=== PATIENT | male | born 1965 | race Caucasian/White ===

== ENCOUNTER 2022-12-22 09:47 | Emergency (ER) | payer BC, SELFPAY ==
[2022-12-22 10:02] VITALS: BP 165/87; PULSE 77; RESP 14; TEMP 36.6; O2SAT 97; BMI 33.0
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
--- NOTE | 2022-12-22 10:50 | XR_ITS ---
[address] [address] Patient Name: ALEN CALDERON MRN: [id number] date: 1965 Sex: M Assigned Patient Location: ER Current Patient Location: Accession/Order Number: [id number] Exam Date: 12/22/2022 11:10 Report Date: 12/22/2022 11:43 At the request of: DANN NASH Procedure: XR knee RT 4V EXAM: XR knee RT 4V HISTORY: pain COMPARISON: MRI dated 05-03-2021 FINDINGS: 4 radiographs of the right knee were obtained. 4 mm ossific fragment projects over the tibial spine. No dislocation. Mild tricompartmental degenerative changes to the right knee. Knee joint effusion. IMPRESSION: Ossific fragment measuring 4 mm projects over the tibial spine. This is favored to be degenerative, but could represent a small fracture fragment. Knee joint effusion. No dislocation. Mild tricompartmental degenerative changes to the right knee. Electronically authenticated by: MERRICK REARDON Date: 12/22/2022 11:43
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
== END 2022-12-22 13:43 | disposition home or self-care (01) ==
PROVIDERS: Emergency Provider Emergency Medicine; PCP Internal Medicine
DX: S83.91XA Sprain of unspecified site of right knee, initial encounter (principal); Z79.899 Other long term (current) drug therapy; W22.8XXA Striking against or struck by other objects, initial encounter; Z87.891 Personal history of nicotine dependence
CPT/HCPCS: 73564; 73700; 99284

== ENCOUNTER 2023-04-09 15:15 | Outpatient (OUT) | payer BC, SELFPAY ==
[2023-04-09 15:42] LABS: Basophils Absolute Auto 0.1 10^3/uL (0.0-0.1); Basophils Percent Auto 0.9 % (0.2-2.0); Eosinophils Absolute Auto 0.3 10^3/uL (0.0-0.7); Eosinophils Percent Auto 3.2 % (0.9-7.0); Hemoglobin 14.4 g/dL (14.0-18.0); Immature Granulocytes Abs Auto 0.03 10^3/uL (0.00-0.03); Immature Granulocytes Pct Auto 0.3 % (0.0-0.5); Lymphocytes Absolute Auto 2.4 10^3/uL (1.2-3.8); Lymphocytes Percent Auto 27.1 % (20.5-60.0); Mean Corpuscular HGB Conc 35.1 g/dL (29.9-35.2); Mean Corpuscular Hemoglobin 33.9 pg (25.9-34.0); Mean Corpuscular Volume 96.5 fL (80.0-94.0); Mean Platelet Volume 9.9 fL (9.5-13.5); Monocytes Absolute Auto 0.8 10^3/uL (0.3-0.8); Monocytes Percent Auto 9.5 % (1.7-12.0); Neutrophils Absolute Auto 5.2 10^3/uL (1.4-6.5); Platelet Count 223 10^3/uL (150-450); Red Blood Count 4.25 10^6/uL (4.70-6.10); Red Cell Distribution Width 11.9 % (11.0-15.0); White Blood Count 8.8 10^3/uL (4.0-11.0)
[2023-04-09 16:25] LABS: Alanine Aminotransferase 35 U/L (16-63); Albumin Level 4.1 g/dL (3.4-5.0); Alkaline Phosphatase 69 U/L (46-116); Anion Gap 11.8; Aspartate Amino Transferase 26 U/L (15-37); BUN Creatinine Ratio 19.4; Bilirubin Total 1.1 mg/dL (0.2-1.0); Calcium 9.3 mg/dL (8.5-10.1); Carbon Dioxide 28.1 mmol/L (21.0-32.0); Chloride 99 mmol/L (98-107); Estimated GFR (African America >60 (>=60); Estimated GFR (Non-African Ame >60 (>=60); Glucose 117 mg/dL (74-106); Potassium 3.9 mmol/L (3.5-5.1); Sodium 135 mmol/L (136-145); Total Protein 8.1 g/dL (6.4-8.2)
== END 2023-04-09 15:16 | disposition home or self-care (01) ==
PROVIDERS: PCP Internal Medicine; Visit Provider Nurse Practitioner
DX: I20.0 Unstable angina (principal)
CPT/HCPCS: 36415; 80053; 85025

== ENCOUNTER 2023-05-12 08:14 | Outpatient (OUT) | payer BC, SELFPAY ==
--- NOTE | 2023-05-12 08:28 | XR_ITS ---
[address] [address] Patient Name: ALEN CALDERON MRN: [id number] date: 1965 Sex: M Assigned Patient Location: LAB Current Patient Location: LAB Accession/Order Number: [id number] Exam Date: 05/12/2023 08:50 Report Date: 05/12/2023 09:17 At the request of: ADOLFO CANTU Procedure: XR chest 2V XR chest 2V COMPARISON: None. CLINICAL HISTORY: [facility] Z79.899 TECHNIQUE: 2 views FINDINGS: There is a normal cardiac and mediastinal contour. The pulmonary vascular pattern is normal. The lungs are clear and the pleural margins are sharp. There are no significant skeletal abnormalities. XR/XR chest 2V IMPRESSION: NO ACUTE RADIOGRAPHIC FINDINGS. Electronically authenticated by: FELIX BUSTAMANTE Date: 05/12/2023 09:17
== END 2023-05-12 08:15 | disposition home or self-care (01) ==
PROVIDERS: PCP Internal Medicine; Visit Provider Nurse Practitioner
DX: Z79.899 Other long term (current) drug therapy (principal)
CPT/HCPCS: 71046; 80053; 83735; 84443

== ENCOUNTER 2023-05-12 08:25 | Outpatient (OUT) | payer BC, SELFPAY ==
[2023-05-12 08:52] LABS: Basophils Absolute Auto 0.1 10^3/uL (0.0-0.1); Basophils Percent Auto 0.8 % (0.2-2.0); Eosinophils Absolute Auto 0.3 10^3/uL (0.0-0.7); Eosinophils Percent Auto 5.3 % (0.9-7.0); Hematocrit 40.9 % (42.0-54.0); Hemoglobin 14.5 g/dL (14.0-18.0); Immature Granulocytes Abs Auto 0.03 10^3/uL (0.00-0.03); Immature Granulocytes Pct Auto 0.5 % (0.0-0.5); Lymphocytes Absolute Auto 1.8 10^3/uL (1.2-3.8); Lymphocytes Percent Auto 29.5 % (20.5-60.0); Mean Corpuscular HGB Conc 35.5 g/dL (29.9-35.2); Mean Corpuscular Hemoglobin 33.5 pg (25.9-34.0); Mean Corpuscular Volume 94.5 fL (80.0-94.0); Mean Platelet Volume 9.7 fL (9.5-13.5); Monocytes Absolute Auto 0.6 10^3/uL (0.3-0.8); Monocytes Percent Auto 9.6 % (1.7-12.0); Neutrophils Absolute Auto 3.3 10^3/uL (1.4-6.5); Neutrophils Percent Auto 54.3 % (43.0-75.0); Platelet Count 221 10^3/uL (150-450); Red Blood Count 4.33 10^6/uL (4.70-6.10); Red Cell Distribution Width 11.3 % (11.0-15.0); White Blood Count 6.1 10^3/uL (4.0-11.0)
[2023-05-12 09:35] LABS: Alanine Aminotransferase 36 U/L (16-63); Albumin Globulin Ratio 0.9; Albumin Level 3.8 g/dL (3.4-5.0); Alkaline Phosphatase 68 U/L (46-116); Anion Gap 11.7; Aspartate Amino Transferase 26 U/L (15-37); BUN Creatinine Ratio 16.3; Bilirubin Total 0.5 mg/dL (0.2-1.0); Calcium 8.9 mg/dL (8.5-10.1); Carbon Dioxide 28.9 mmol/L (21.0-32.0); Chloride 101 mmol/L (98-107); Estimated GFR (African America >60 (>=60); Estimated GFR (Non-African Ame >60 (>=60); Glucose 129 mg/dL (74-106); Potassium 4.6 mmol/L (3.5-5.1); Sodium 137 mmol/L (136-145); Thyroid Stimulating Hormone 1.168 uIU/mL (0.358-3.740); Total Protein 7.8 g/dL (6.4-8.2)
== END 2023-05-12 08:26 | disposition home or self-care (01) ==
LOC: LAB 08:26
PROVIDERS: PCP Internal Medicine; Visit Provider Nurse Practitioner
DX: Z79.899 Other long term (current) drug therapy (principal); I10 Essential (primary) hypertension; I48.0 Paroxysmal atrial fibrillation
CPT/HCPCS: 36415; 71046; 80053; 83735; 84443; 85025

== ENCOUNTER 2023-06-10 08:34 | Outpatient (OUT) | payer BC, SELFPAY ==
--- NOTE | 2023-06-09 09:46 | RT_ITS ---
[facility] Test Date: 2023-06-09 Pat Name: AELN CALDERON Department: Room: - Gender: Male Professor Of Practice: Michael Ramirez RRT : 1965 Requested By: [id number] Order Number: [id number] Reading MD: Stuart Fernandez Interpretive Statements Pulmonary function testing was completed according to ATS criteria. Findings were considered accurate and reproducible. No bronchodilator was administered due to normal spirometric values. Due to software limitations, no prior studies (if performed previously) are currently available for comparison. Spirometry: -FEV1/FVC: Normal @ 82% -FEV1: Normal @ 89% -FVC: Low normal @ 82% Lung volumes by plethysmography: -RV: Normal @ 115% -TLC: Normal @ 96% Diffusion capacity: -DLCO: Normal @ 99% when corrected for Hb 14.5g/dL Flow-volume loop: -Trending towards a mild restriction Impressions: -Essentially normal PFT. Clinical correlation required. Electronically Signed On 06-16-2023 13:34:24 EST by Stuart Fernandez
== END 2023-06-10 11:22 | disposition home or self-care (01) ==
LOC: CARD 08:35
PROVIDERS: PCP Internal Medicine; Visit Provider Nurse Practitioner
DX: Z79.899 Other long term (current) drug therapy (principal)
CPT/HCPCS: 94010; 94726; 94729

== ENCOUNTER 2023-07-11 08:29 | Outpatient (OUT) | payer BC, SELFPAY ==
--- OUTSIDE RECORDS SUMMARY | 2023-07-11 08:33 | XMS_ITS | CCD ---
Author Name Unknown Address [address] [place] [address] Organization [facility] Care Team Providers Care Wedding Planner Name Role Phone CALIXTO SEGOVIA Referring Unavailable BALL, CALIXTO Primary Care Unavailable PROMISE, THEO Attending Unavailable PROMISE, THEO Admitting Unavailable BALL, CALIXTO Primary Care Unavailable BALL, CALIXTO Referring Unavailable PROMISE, THEO Attending Unavailable PROMISE, THEO Admitting Unavailable COMBS, DR LEVINE Admitting Unavailable COMBS, DR LEVINE Attending Unavailable COMBS, DR LEVINE Consulting Unavailable BALL, DR DE LUNA Primary Care Unavailable BALL, DR DE LUNA Admitting Unavailable BALL, DR DE LUNA Attending Unavailable BALL, DR DE LUNA Primary Care Unavailable BALL, DR DE LUNA Primary Care Unavailable PROMISE, THEO Admitting Unavailable PROMISE, THEO Attending Unavailable PROMISE, THEO Consulting Unavailable BALL, DR DE LUNA Primary Care Unavailable PROMISE, THEO Admitting Unavailable PROMISE, THEO Attending Unavailable PROMISE, THEO Consulting Unavailable JO ANNSTELLA JORGE Admitting Unavailable BALL, DR DE LUNA Primary Care Unavailable STELLA ATWOOD Attending Unavailable STELLA ATWOOD Consulting Unavailable SANDIE, CALIXTO Primary Care Physician Erwin COMBS Attending Unavailable Erwin COMBS Attending Unavailable TRACYVINCENT Whittaker Attending Unavailable JO ANNSTELLA Attending Unavailable ADOLFO CANTU Attending Unavailable APLINGROGERS Attending Unavailable APLINGROGERS Attending Unavailable Allergies Allergy Classification Reported Allergen(s) Allergy Type Date of Onset Reaction(s) Facility (1 source) Acetaminophen / oxyCODONE Drug Allergy 2 [facility] (2 sources) oxyCODONE; Translations: [oxyCODONE] Drug Allergy [facility] (1 source) oxyCODONE; Translations: [oxycodone] Drug Allergy Itching (finding) [facility] (1 source) Acetaminophen / oxyCODONE; Translations: [OXYCODONE-ACETAM INOPHEN] Drug Allergy 2 [facility] Medications Current Medications Medication Drug Class(es) Dates Sig (Normalized) Sig (Original) Amlodipine (1 source) Dihydropyridine Calcium Channel Tanner Start: 04-28-2019 amlodipine Oral, Daily, Refills(s) 0 Start Date: 04/28/19 Status: Ordered Eliquis (1 source) Factor Xa Inhibitor Start: 04-28-2019 Eliquis Oral, BID, Refills(s) 0 Start Date: 04/28/19 Status: Ordered carvedilol (1 source) alpha-Adrenergic Tanner, beta-Adrenergic Tanner Start: 04-28-2019 carvedilol Oral, Refills(s) 0 Start Date: 04/28/19 Status: Ordered furosemide 40 mg oral tablet (1 source) Loop Diuretic Start: 08-09-2022 furosemide 40 mg Tab Refills(s) 0 Start Date: 08/09/22 Status: Ordered Losartan (1 source) Angiotensin 2 Receptor Tanner Start: 04-28-2019 losartan Oral, Daily, Refills(s) 0 Start Date: 04/28/19 Status: Ordered omeprazole 20 mg delayed release oral capsule (1 source) Proton Pump Inhibitor Start: 08-09-2022 omeprazole 20 mg Cap-DR Refills(s) 0 Start Date: 08/09/22 Status: Ordered Problems Problem Classification Problem Date Documented Date Episodic/Chronic Cancer of prostate (1 source) Malignant tumor of prostate 01-10-2020 Chronic Cancer of prostate (3 sources) Personal history of malignant neoplasm of prostate; Translations: [History of malignant neoplasm of prostate] Onset: 2 Episodic Cardiac dysrhythmias (11 sources) Paroxysmal atrial fibrillation; Translations: [Unspecified atrial fibrillation] Onset: 2 Chronic Disorders of lipid metabolism (1 source) Hypercholesterolemia 04-28-2019 Chronic Esophageal disorders (1 source) Gastroesophageal reflux disease 04-28-2019 Chronic Essential hypertension (4 sources) Essential (primary) hypertension; Translations: [Hypertensive disorder] Onset: 2 04-28-2019 Chronic Genitourinary symptoms and ill-defined conditions (3 sources) Nocturia; Translations: [Microscopic hematuria] Onset: 2 08-04-2019 Episodic Glaucoma (1 source) Glaucoma 04-28-2019 Chronic Hyperplasia of prostate (6 sources) Benign prostatic hyperplasia with lower urinary tract symptoms; Translations: [Benign prostatic hypertrophy with outflow obstruction] Onset: 2 Chronic Other male genital disorders (2 sources) Male erectile dysfunction, unspecified; Translations: [Erectile dysfunction] Onset: 2 Chronic Other male genital disorders (1 source) Impotence 10-08-2019 Chronic Other male genital disorders (1 source) 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 Other nutritional; endocrine; and metabolic disorders (1 source) Body mass index 30+ - obesity 07-19-2020 Chronic Other screening for suspected conditions (not mental disorders or infectious disease) (1 source) Raised prostate specific antigen 01-10-2020 Episodic Residual codes; unclassified (4 sources) Obstructive sleep apnea (adult) (pediatric); Translations: [OBSTRUCTIVE SLEEP APNEA] Onset: 2 Chronic Residual codes; unclassified (1 source) Family history of malignant neoplasm of prostate; Translations: [FAMILY HX MALIG NEOPLASM PROSTATE] Onset: 2 Episodic Residual codes; unclassified (1 source) Edema, unspecified; Translations: [EDEMA UNSPECIFIED] Onset: 2 Episodic Residual codes; unclassified (1 source) Family history of cancer; Translations: [Family history of malignant neoplasm of prostate] Onset: 3 Episodic Residual codes; unclassified (1 source) Family history of prostate cancer 10-08-2019 Episodic Screening and history of mental health and substance abuse codes (1 source) Ex-smoker 10-08-2019 Episodic Unclassified (1 source) CONTACT W/AND (SUSP) EXPOS COVID-19; Translations: [CONTACT W/AND (SUSP) EXPOS COVID-19] Onset: 2 Unclassified (1 source) Drug therapy finding 10-08-2019 Results Test Name Value Interpretation Reference Range Facility Office Visiton 05-07-2023 Follow-up visit [id number] Alen Cantu 1965 M Date Provider Department Center 05/07/2023 Bhavin-ADOLFO CANTU [facility] Family History Problem Relation Age of Onset No Known Problems Mother No Known Problems Father Family Status - Relation Status Age at Mother Father Level of Service:54968 [place] OFFICE/OUTPATIENT ESTABLISHED MOD MDM 30-39 MIN [facility] Office Visiton 04-09-2023 Follow-up visit [id number] Alen Cantu 1965 M Date Provider Department Center 04/09/2023 VINCENT BURK [facility] Family History Problem Relation Age of Onset No Known Problems Mother No Known Problems Father Family Status - Relation Status Age at Mother Father Level of Service:65397 [place] OFFICE/OUTPATIENT ESTABLISHED MOD MDM 30-39 MIN Reason for Visit and Comments: Follow-up [917072] - 6 month F/U Normal [facility] Office Visiton 09-25-2022 Follow-up visit [id number] Alen Cantu 1965 M Date Provider Department Center 09/25/2022 STELLA HARPER [facility] Family History Problem Relation Age of Onset No Known Problems Mother No Known Problems Father Family Status - Relation Status Age at Mother Father Level of Service:93844 [place] OFFICE/OUTPATIENT ESTABLISHED LOW MDM 20-29 MIN Reason for Visit and Comments: Atrial Fibrillation [80] [facility] Auth for Release of Medical Recordson 09-24-2022 Auth for Release of Medical Records [id number] D:127 [facility] Auth for Release of Medical Recordson 09-06-2022 Auth for Release of Medical Records [id number] D:127 [facility] Auth for Release of Medical Recordson 09-02-2022 Auth for Release of Medical Records [id number] D:127 [facility] Ambulatory Visit Summaryon 0 08-09-2022 Ambulatory Visit Summary ALEN CANTU :1965 Visit Date:08/09/2022 Ambulatory Visit Instructions Your Diagnosis History of prostate cancer BPH with urinary obstruction Family history of prostate cancer Organic impotence Tests Performed Urnls Dip Stick Auto w/o Microscopy POC [id number] Your Care Team Attending Physician - Erwin COMBS MD Primary Care Physician - CALIXTO SEGOVIA DO This Is Your Medications List Contact prescribing physician if questions or concerns amlodipine apixaban (Eliquis) carvedilol furosemide (furosemide 40 mg Tab) losartan omeprazole (omeprazole 20 mg Cap-DR) Procedures Performed Seed implantation into prostate (09/09/2019), Transrectal biopsy of prostate using ultrasound (US) guidance (07/20/2019), Transrectal biopsy of prostate using ultrasound (US) guidance (08/11/2018), Cardiac ablation using fluoroscopy guidance, Carpal tunnel decompression, Cholecystectomy, History of hernia repair, Vasectomy. Discharge Vitals Heart Rate (Peripheral) 70 Respiratory Rate 16 Blood Pressure 129/83 Height 177 cm Height 70 in Weight 112 kg Weight 246.4 lb BMI 35.75 What to do next Scheduled Follow-Up Appointments Friday 8:45 AM EST With: Erwin COMBS MD Where: [facility] Patient Educationon 08-09-19 23 Patient Education Urology Benign Prostatic Hyperplasia Benign prostatic hyperplasia (BPH) is an enlarged prostate gland that is caused by the normal aging process and not by cancer. The prostate is a walnut-sized gland that is involved in the production of semen. It is located in front of the rectum and below the bladder. The bladder stores urine and the urethra is the tube that carries the urine out of the body. The prostate may get bigger as a man gets older. An enlarged prostate can press on the urethra. This can make it harder to pass urine. The build-up of urine in the bladder can cause infection. Back pressure and infection may progress to bladder damage and kidney (renal) failure. What are the causes? This condition is part of a normal aging process. However, not all men develop problems from this condition. If the prostate enlarges away from the urethra, urine flow will not be blocked. If it enlarges toward the urethra and compresses it, there will be problems passing urine. What increases the risk? This condition is more likely to develop in men over the age of 50 years. What are the signs or symptoms? Symptoms of this condition include: ? Getting up often during the night to urinate. ? Needing to urinate frequently during the day. ? Difficulty starting urine flow. ? Decrease in size and strength of your urine stream. ? Leaking (dribbling) after urinating. ? Inability to pass urine. This needs immediate treatment. ? Inability to completely empty your bladder. ? Pain when you pass urine. This is more common if there is also an infection. ? Urinary tract infection (UTI). How is this diagnosed? This condition is diagnosed based on your medical history, a physical exam, and your symptoms. Tests will also be done, such as: ? A post-void bladder scan. This measures any amount of urine that may remain in your bladder after you finish urinating. ? A digital rectal exam. In a rectal exam, your health care provider checks your prostate by putting a lubricated, gloved finger into your rectum to feel the back of your prostate gland. This exam detects the size of your gland and any abnormal lumps or growths. ? An exam of your urine (urinalysis). ? A prostate specific antigen (PSA) screening. This is a blood test used to screen for prostate cancer. ? An ultrasound. This test uses sound waves to electronically produce a picture of your prostate gland. Your health care provider may refer you to a specialist in kidney and prostate diseases (urologist). How is this treated? Once symptoms begin, your health care provider will monitor your condition (active surveillance or watchful waiting). Treatment for this condition will depend on the severity of your condition. Treatment may include: ? Observation and yearly exams. This may be the only treatment needed if your condition and symptoms are mild. ? Medicines to relieve your symptoms, including: ? Medicines to shrink the prostate. ? Medicines to relax the muscle of the prostate. ? Surgery in severe cases. Surgery may include: ? Prostatectomy. In this procedure, the prostate tissue is removed completely through an open incision or with a laparoscope or robotics. ? Transurethral resection of the prostate (TURP). In this procedure, a tool is inserted through the opening at the tip of the penis (urethra). It is used to cut away tissue of the inner core of the prostate. The pieces are removed through the same opening of the penis. This removes the blockage. ? Transurethral incision (TUIP). In this procedure, small cuts are made in the prostate. This lessens the prostate's pressure on the urethra. ? Transurethral microwave thermotherapy (TUMT). This procedure uses microwaves to create heat. The heat destroys and removes a small amount of prostate tissue. ? Transurethral needle ablation (TUNA). This procedure uses radio frequencies to destroy and remove a small amount of prostate tissue. ? Interstitial laser coagulation (ILC). This procedure uses a laser to destroy and remove a small amount of prostate tissue. ? Transurethral electrovaporization (TUVP). This procedure uses electrodes to destroy and remove a small amount of prostate tissue. ? Prostatic urethral lift. This procedure inserts an implant to push the lobes of the prostate away from the urethra. Follow these instructions at home: ? Take bxul-tpc-bvilwne and prescription medicines only as told by your health care provider. ? Monitor your symptoms for any changes. Contact your health care provider with any changes. ? Avoid drinking large amounts of liquid before going to bed or out in public. ? Avoid or reduce how much caffeine or alcohol you drink. ? Give yourself time when you urinate. ? Keep all follow-up visits as told by your health care provider. This is important. Contact a health care provider if: ? You have unexplained back pain. ? Your symptoms do not get better with treatment. ? You d (more content not included)... Normal [facility] Urology Office/Clinic Noteon 08-09-2022 Urology Office/Clinic Note Chief Complaint 1 year with PSA HPI Staff Pt is here for 1 year f/u with PSA. Previous dx of BPH with urinary obstruction, personal hx of prostate cancer, organic impotence and nocturia. Current PSA done 07/16/22 is 0.19 and previous done 07/17/21 was 0.3. Dysuria: no Incomplete bladder emptying: no Hematuria: no Frequency: no Urgency: no Nocturia: 2x Stream: good stream no straining Leaking: no Post void dripping: no Wearing pads/ Depends: no Urge incontinence: no Stress incontinence: no Incontinence without Sensory Awareness: no Abdominal pain: no Flank pain: no Sexual complaints: no History of Present Illness Tests reviewed: reviewed UA and PSA. I have reviewed the previous health record information and history for this patient from Dr. Combs. I have reviewed and verified the staff HPI to be accurate for this encounter. There have been no associated fever, chills, flank pain, or blood in the urine. Denies any urinary infections since last encounter. Review of Systems PHQ Score Initial Depression Screen Score: 0 ROS - Provider Constitutional: denies weight loss, denies hot flashes. Eyes: denies eye problems. Gastrointestinal: denies nausea, denies vomiting. Cardiovascular: denies chest pain or angina. Integumentary: no dryness Musculoskeletal: denies musculoskeletal symptoms. ENMT: denies otolaryngeal symptoms. Respiratory: no shortness of breath. Heme/Lymph: denies easy bleeding tendency, denies easy bruising tendency. Psychiatric: no confusion, no anxiety. Genitourinary: denies dysuria, denies hematuria, denies discharge, denies urinary frequency, denies urinary hesitancy, denies nocturia, denies incontinence, denies genital sores, denies decreased libido, and denies erectile dysfunction. Physical Exam Vitals & Measurements HR: 70(Peripheral) RR: 16 BP: 129/83 HT: 70 in HT: 177 cm WT: 112 kg WT: 246.4 lb BMI: 35.75 General Appearance: alert, no distress, well nourished, well developed male. Genitourinary: normal scrotum, normal testes, normal urethra, normal epididymis, normal vas deferens/spermatic cord. Flank Pain: none. Bladder: nonpalpable. Assessment/Plan 1. History of prostate cancer (Z85.46: Personal history of malignant neoplasm of prostate) S/p Brachytherapy done 09/09/19. Current PSA 0.19 drawn 07/16/22. Previous level 0.3 drawn 07/17/21. Pt. was 0.74 drawn 01/19/21. Will continue to monitor. Follow up in 1 year w/ PSA. All questions/concerns were discussed. Pt. to call the office if heencounters any issues prior. Pt. acknowledges understanding. 2. BPH with urinary obstruction (N40.1: Benign prostatic hyperplasia with lower urinary tract symptoms) Pt. not currently taking prostate medications. UA today neg for infection. No urinary complaints at this time and is urinating comfortably. Denies infections or blood since last encounter. Pt. states is he taking a water pill. 3. Family history of prostate cancer (Z80.42: Family history of malignant neoplasm of prostate) Father. 4. 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 Previously was taking Tadalafil 20mg PRN. Follow-up With When Contact Information KAYDEN URBINA, Erwin Mojica, [address] [place] [address]- Additional Instructions: 1 year w/ PSA Patient Education Benign Prostatic Hyperplasia I, Ary Edge, personally scribed for Dr. Combs on 08/09/2022 10:12:55. . Documentation recorded by the scribe, Ary Edge, accurately reflects the services(s) I performed and decisions made by me. Authenticated by Dr. Combs on 08/09/2022 10:15:59. Problem List/Past Medical History Ongoing Anticoagulated Atrial fibrillation BMI 35.0-35.9,adult BPH with urinary obstruction Elevated cholesterol Family history of prostate cancer Former smoker Gastroesophageal reflux Glaucoma History of prostate cancer Hypertension Impotence Microhematuria Nocturia Organic impotence Historical Elevated PSA Prostate cancer Procedure/Surgical History Seed implantation into prostate (09/09/2019), Transrectal biopsy of prostate using ultrasound (US) guidance (07/20/2019), Transrectal biopsy of prostate using ultrasound (US) guidance (08/11/2018), Cardiac ablation using fluoroscopy guidance, Carpal tunnel decompression, Cholecystectomy, History of hernia repair, Vasectomy. Medications amlodipine, Oral, Daily carvedilol, Oral Eliquis, Oral, BID furosemide 40 mg Tab losartan, Oral, Daily omeprazole 20 mg Cap-DR Allergies oxyCODONE (Itch) Social History Tobacco Former smoker, quit more than 30 days ago Tobacco Use:. Never Smokeless Tobacco Use:. Cigarettes, 07/19/2020 Former smoker, quit more than 30 days ago Tobacco Use:., 01/10/2020 Former smoker, quit more than 30 days ago Tobacco Use:., 10/08/2019 Family History Prosta (more content not included)... Normal [facility] Comment on above: Result Comment: Elec tronically Signed By: Erwin COMBS MD\.br\Date and Time Signed: 08/09/22 10:16 EST\.br\Electronically Co-Signed By: Ary Edge\.br\Date and Time Co-Signed: 08/09/22 10:13 EST Lab Reportson 07-17-2022 Lab Reports [id number] D:127 Normal [facility] PROF 14(COMP METB)on 022 Albumin [Mass/Vol] 3.8 g/dL Normal 3.4-5.0 [facility] Comment on above: Performed By: #### C MP, TSH #### [facility] [address] [place] [address] Dr. Edilson Iyer Albumin/Globulin [Mass ratio] 0.9 {ratio} Normal [facility] Comment on above: Performed By: #### C MP, TSH #### [facility] [address] [place] [address] Dr. Edilson Iyer ALP [Catalytic activity/Vol] 69 U/L Normal 46-116 [facility] Comment on above: Performed By: #### C MP, TSH #### [facility] [address] [place] [address] Dr. Edilson Iyer ALT [Catalytic activity/Vol] 29 U/L Normal 16-63 [facility] Comment on above: Performed By: #### C MP, TSH #### [facility] [address] [place] [address] Dr. Edilson Iyer Anion gap [Moles/Vol] 7.7 mmol/L Normal [facility] Comment on above: Performed By: #### C MP, TSH #### [facility] [address] [place] [address] Dr. Edilson Iyer AST [Catalytic activity/Vol] 18 U/L Normal 15-37 [facility] Comment on above: Performed By: #### C MP, TSH #### [facility] [address] [place] [address] Dr. Edilson Iyer Bilirubin [Mass/Vol] 0.4 mg/dL Normal 0.2-1.0 [facility] Comment on above: Performed By: #### C MP, TSH #### [facility] [address] [place] [address] Dr. Edilson Iyer Calcium [Mass/Vol] 9.0 mg/dL Normal 8.5-10.1 [facility] Comment on above: Performed By: #### C MP, TSH #### [facility] [address] [place] [address] Dr. Edilson Iyer Chloride [Moles/Vol] 104 mmol/L Normal 98-107 [facility] Comment on above: Performed By: #### C MP, TSH #### [facility] [address] [place] [address] Dr. Edilson Iyer CO2 [Moles/Vol] 29.4 mmol/L Normal 21.0-32.0 [facility] Comment on above: Performed By: #### C MP, TSH #### [facility] [address] [place] [address] Dr. Edilson Iyer Creatinine [Mass/Vol] 1.12 mg/dL Normal 0.70-1.30 [facility] Comment on above: Performed By: #### C MP, TSH #### [facility] [address] [place] [address] Dr. Edilson Iyer EGFR-AF BOTSWANAN >60 Normal >=60 [facility] Comment on above: Performed By: #### C MP, TSH #### [facility] [address] [place] [address] Dr. Edilson Iyer EGFR-NON AF BOTSWANAN >60 Normal >=60 [facility] Comment on above: Performed By: #### C MP, TSH #### [facility] [address] [place] [address] Dr. Edilson Iyer Globulin (S) [Mass/Vol] 4.0 g/dL Normal [facility] Comment on above: Performed By: #### C MP, TSH #### [facility] [address] [place] [address] Dr. Edilson Iyer Glucose [Mass/Vol] 108 mg/dL Critically high 74-106 [facility] Comment on above: Performed By: #### C MP, TSH #### [facility] [address] [place] [address] Dr. Edilson Iyer Potassium [Moles/Vol] 4.1 mmol/L Normal 3.5-5.1 [facility] Comment on above: Performed By: #### C MP, TSH #### [facility] [address] [place] [address] Dr. Edilson Iyer Protein [Mass/Vol] 7.8 g/dL Normal 6.4-8.2 [facility] Comment on above: Performed By: #### C MP, TSH #### [facility] [address] [address] [address] Edilson Iyer Sodium [Moles/Vol] 137 mmol/L Normal 136-145 [facility] Comment on above: Performed By: #### C MP, TSH #### [facility] [address] [place] [address] Dr. Edilson Iyer Urea nitrogen [Mass/Vol] 23.0 mg/dL Critically high 7.0-18.0 [facility] Comment on above: Performed By: #### C MP, TSH #### [facility] [address] [place] [address] Dr. Edilson Iyer Urea nitrogen/Creatinine [Mass ratio] 20.5 mg/mg Normal [facility] Comment on above: Performed By: #### C MP, TSH #### [facility] [address] [place] [address] Dr. Edilson Iyer TSHon 05-08-2022 TSH 1.420 uIU/mL Normal 0.358-3.740 [facility] Comment on above: Performed By: #### C MP, TSH #### [facility] [address] [place] [address] Dr. Edilson Iyer Cardiovascular Lab Reporton 03-20-2022 Cardiovascular Lab Report [facility] Patient Name: Alen Cantu MR #: [id number] Physician: Theo Osullivan MD Service Date: 03/20/2022 Department of Birthdate: 1965 Medicine Room #: Division of Cardiology Adult Cardiovascular Services [place] [address] Cardiovascular Laboratory Report ATRIAL FIBRILLATION ABLATION PROCEDURE NOTE DATE OF PROCEDURE: 03/20/2022 PERFORMING PHYSICIAN: Dr. Theo Osullivan CONSENT: Patient NAME OF THE PROCEDURE: Pulmonary Vein Isolation and Comprehensive EP study. INDICATIONS FOR PROCEDURE: 1. Persistent atrial fibrillation having failed pharmacologic therapy. PROCEDURES PERFORMED: 1. Sonosite guided venous access as noted below and images stored. 2. Comprehensive EP study and catheter ablation for persistent atrial fibrillation through the pulmonary vein isolation technique. This includes right atrial recording and pacing, His bundle recording and right ventricular recording and pacing. 3. Intracardiac EP 3D mapping. 4. Intracardiac echocardiogram 5. Left atrial and coronary sinus recording and pacing to assess ablation results. 6. Left heart pressure measurements and LV pacing and recording. 7. Induction of arrhythmia and testing of ablation results using intravenous adenosine infusion. 8. Fluroscopy. FLUROSCOPY: 4min /50mGray PROCEDURE NOTE: 57-year-old gentleman with a past medical history of hypertension, who was known to have atrial fibrillation. and had failed medication and opted for ablation. LISSETH was deferred as patient was in SR. Both the groins were then prepared and draped. Ultrasound was used to determine the course and patency of the femoral veins on both sides and they were noted to be patent and the image stored in PACS. After infiltration with 1% lidocaine, 4 venous sheaths were placed in the right as noted below. RFV: 8Fx3 ThermoCool SF Bi-Directional over SL1/ Vizigo, SL1:Pentaray, 8Fx1 CS Catheter (EZ Steer) 9Fx1: ICE catheter. [id number] Heparin bolus was given followed by additional bolus and continuous intravenous drip to target ACT around 350. An intracardiac ultrasound catheter was inserted into the right atrium to examine the right atrial anatomy, atrial septum, pulmonary vein anatomy and to monitor for pericardial effusion and guide transseptal access. At baseline, there no pericardial effusion and no FLORENTINO clot. Esophagus was mapped using the CARTOSOUND 3D mapping software and noted to be in slanted towards the right. Double transseptal access technique was used to cross to the left side. Following the first transeptal access, which was achieved via puncture of the thinner aspect of the septum using Julia needle, Pentaray catheter was placed in the left atrium. Mapping revealed normal LA voltage. Second transseptal access was acquired and SL1 sheath was exchanged over a wire to 8.5F Vizigo sheath. Pulmonary vein and left atrial anatomic mapping were performed using a 3-D CARTO computer-based mapping system. Identification of the pulmonary vein ostia was assisted by the left atrial signals on the ablation catheter, the ICE catheter and the Pentaray catheter placed in the individual pulmonary veins. There were signals noted in all the veins. A temperature probe was placed in the esophagus to monitor and avoid rise of temperature by more than a degree Celsius (Baseline 36.1C to max of 36.4C). Wide area circumferential ablation technique (WACA) was then performed with irrigated ST/SF catheter. Power settings were 40watts of 10-12s in the anterior aspect of WACA and 5-8s while ablating on the posterior wall as well as the roof. Following left WACA, isolation was noted. Following left WACA, entrance block was observed. Right sided PVI was then performed using a WACA approach with care to pace the anterior aspect of WACA and alvarez to ensure there was no phrenic capture. In the end, all pulmonary veins were isolated. Adenosine was given and no reconnection was noted. LV pacing performed revealed no VA conduction. EP study induced non sustained atrial flutter. CTI ablation was then performed. Thermocool Smart touch catheter was placed over the CTI which had a significant eustachian valve. Ablation was performed using 40W power guided by the intracardiac echocardiogram, the CARTO map and the intracardiac electrogram. Linear ablations were performed from the tricuspid annulus to the IVC. On completion with a candycane approach, pacing revealed bidirectional block with timing of 188ms. Differential pacing confirmed this and multipolar catheter along the lateral RA revealed a high to low activation with CS pacing. At this time, I decided not to perform any more ablation. Thereafter, I performed the EP study and no tachycardia could be induced. The ICE catheter was used to reexamine the intracardiac anatomy (more content not included)... Normal [facility] POC GLUCOSE LABon 03-20-2022 Glucose [Mass/Vol] 117 mg/dL High 70-[address] [facility] Comment on above: Performed By: #### [id number] #### [facility] [address] [place] [address] Glucose [Mass/Vol] 136 mg/dL High 70-[address] [facility] Comment on above: Performed By: #### 8 [id number] #### [facility] [address] [facility]. [address] PROTHROMBIN TIMEon 2 INR Coag (PPP) [Relative time] 1.06 {INR} Normal 0.91-1.16 [facility] Comment on above: Order Comment: No: D o not add to previous draw Result Comment: ACCC P RECOMMENDED INR FOR WARFARIN THERAPY ------ ------- CONDITION INR PROPHYLAXIS OF VENOUS THROMBOSIS 2-3 (HIGH-RISK SURGERY) TREATMENT OF VENOUS THROMBOSIS 2-3 TREATMENT OF PULMONARY EMBOLISM 2-3 PREVENTION OF SYSTEMIC EMBOLISM: 2-3 ACUTE MYOCARDIAL INFARCTION TISSUE HEART VALVES VALVULAR HEART DISEASE ATRIAL FIBRILLATION RECURRENT SYSTEMIC EMBOLISM MECHANICAL HEART VALVE 2.5-3.5 FROM: ORAL ANTICOAGULANTS. MECHANISM OF ACTION, CLINICAL EFFECTIVENESS, AND OPTIMAL THERAPEUTIC RANGE. CHEST 1995;108:231S-246S. Performed By: #### 5 [id number] #### [facility] [address] [facility] [place] [address], [facility] PT Coag (PPP) [Time] 13.8 s Normal 12.3-14.8 [facility] Comment on above: Order Comment: No: D o not add to previous draw Result Comment: ALL RESULTS MUST BE INTERPRETED WITH RESPECT TO BLOOD DRAWING ARTIFACT OR DILUTION ERROR OF ANTICOAGULANT AT THE TIME OF SAMPLING. Performed By: #### 5 [id number] #### [facility] [address] [facility]. [place], [place] [address] Covid-19 PCR (CVDTB)on 02-19 SARS-CoV-2 (COVID-19) RNA WERO+probe Ql (Unsp spec) Not detected Normal NOT DETECTED [facility] Comment on above: Result Comment: This test is not yet approved or cleared by the [place] FDA. When there are no FDA-approved or cleared tests available, and other criteria are met, FDA can make tests available under an emergency access mechanism called an Emergency Use Authorization (EUA). The EUA for this test is supported by the [place] of Health and Human Service's (HHS's) declaration that circumstances exist to justify the emergency use of in vitro diagnostics for the detection and/or diagnosis of the virus that causes COVID-19. This EUA will remain in effect (meaning this test can be used) for the duration of the COVID-19 declaration justifying emergency of IVDs, unless it is terminated or revoked by FDA (after which the test may no longer be used). When diagnostic testing is negative, the possibility of a false negative should be considered in the context of a patient's recent exposures and the presence of clinical signs and symptoms consistent with SARS-CoV-2. Performed By: #### C VDTB #### [facility] [address] [place] [address] Dr. Edilson Iyer BASIC METABOLIC PANELon 02-18 Calcium [Mass/Vol] 10.0 mg/dL Normal 8.6-10.3 [facility] Comment on above: Performed By: #### 0 [id number] #### [facility] [address] [place] [address], [facility] Chloride [Moles/Vol] 97 mmol/L Low 98-107 [facility] Comment on above: Performed By: #### 0 0071 #### [facility] [address] [facility] [place] [place] [address], [facility] CO2 [Moles/Vol] 31 mmol/L Normal 21-31 [facility] Comment on above: Performed By: #### 0 0071 #### [facility] [address] [place] [address], [facility] Creatinine [Mass/Vol] 1.11 mg/dL Normal 0.70-1.30 [facility] Comment on above: Performed By: #### 0 0071 #### [facility] [address] [place] [address], [facility] GFR/1.73 sq M.predicted among non-blacks MDRD (S/P/Bld) [Vol rate/Area] mL/min/{1.73_m2} Normal >60 [facility] Comment on above: Result Comment: [facility]'s estimated glomerular filtration rate (eGFR) will no longer include consideration of race in its calculation. The National Kidney Foundation's eGFR Task Force developed new recommendations for the estimation of the glomerular filtration rate in the [place] They recommend immediate implementation of the new equation refit without the race variable in all laboratories because the calculation does not include race. In addition to not including race in the calculation and reporting, it included diversity in its development, and has acceptable performance characteristics and potential consequences that do not disproportionately affect any one group of individuals. Performed By: #### 0 [id number] #### [facility] [address] [facility] [place] [address], [facility] Glucose [Mass/Vol] 124 mg/dL High 70-[address] [facility] Comment on above: Performed By: #### 0 0071 #### [facility] [address] [place] [address], [facility] Potassium [Moles/Vol] 4.3 mmol/L Normal 3.5-5.1 [facility] Comment on above: Performed By: #### 0 0071 #### [facility] [address] [place] [address], [facility] Sodium [Moles/Vol] 136 mmol/L Normal 136-[address] [facility] Comment on above: Performed By: #### 0 0071 #### [facility] [address] [place] [address], [facility] Urea nitrogen [Mass/Vol] 20 mg/dL Normal 7-25 [facility] Comment on above: Performed By: #### 0 0071 #### [facility] [address] [facility] [place] [address], [facility] CBC COMPLETE BLOOD COUNTon 0 - Erythrocyte distribution width (RBC) [Ratio] 12.4 % Normal 11.5-15.0 [facility] Comment on above: Performed By: #### 5 [id number] #### [facility] [address] [facility] [place] [address], [facility] Hematocrit (Bld) [Volume fraction] 46.7 % Normal 39.0-50.0 [facility] Comment on above: Performed By: #### 5 0608 #### [facility] [address] [place] [address], [facility] Hemoglobin (Bld) [Mass/Vol] 16.2 g/dL Normal 13.0-17.0 [facility] Comment on above: Performed By: #### 5 0608 #### [facility] [address] [facility] [place] [address], [facility] MCH (RBC) [Entitic mass] 32.9 pg Normal 27.0-33.0 [facility] Comment on above: Performed By: #### 5 0608 #### [facility] [address] [facility] [place] [address], [facility] MCHC (RBC) [Mass/Vol] 34.7 g/dL Normal 32.0-35.0 [facility] Comment on above: Performed By: #### 5 [id number] #### [facility] [address] [place] [address], [facility] MCV (RBC) [Entitic vol] 94.9 fL Normal 82.0-98.0 [facility] Comment on above: Performed By: #### 5 [id number] #### [facility] [address] [place] [address], [facility] Nucleated RBC/100 WBC (Bld) [Ratio] 0 % Normal 0-0 [facility] Comment on above: Performed By: #### 5 0608 #### [place] [address], [facility] PLAT CNT 260 10*3/uL Normal 150-400 [facility] Comment on above: Performed By: #### 5 0608 #### [place] [address], [facility] RBC (Bld) [#/Vol] 4.92 10*6/uL Normal 4.20-5.[address] [facility] Comment on above: Performed By: #### 5 0608 #### [place] [address], [facility] WBC (Bld) [#/Vol] 7.55 10*3/uL Normal 4.00-10.[address] [facility] Comment on above: Performed By: #### 5 [id number] #### [address] CTA CHESTon 03-05-2022 CTA CHEST [facility] Department of Radiology [address] [place], [place] [address] ===== Patient Name: ALEN CANTU : 1965 Sex: M Age: Race: White Pt. Location: Patient Status: D Ordered Date: 01/24/2022 2:30:00 PM Completed Date: 03/05/2022 11:55 AM Requesting Provider: THEO OSULLIVAN Attending Provider: THEO OSULLIVAN Report Copy To: CALIXTO SEGOVIA Signs & Symptoms: I48.0 Paroxysmal atrial fibrillation I10 History: Sruthi DM? on metformin? kidney dis? Comments: AFib Ablation 03/20 Exam: CTA CHEST ===== Chest CTA with IV contrast, 03/05/2022 History: Atrial fibrillation Comparison: None Technique: Multiple contiguous axial images were acquired from the thoracic inlet through the upper abdomen after the intravenous administration of 100 cc of Omnipaque 350. Coronal and sagittal reconstructions were performed in addition to multiplanar 3-D MIPs. Automated exposure control was utilized. Findings: Normal caliber thoracic aorta with mild atherosclerotic calcification. Variant origin of left vertebral artery from the aortic arch. Pulmonary artery is normal in caliber with no central or segmental embolic filling defects. Heart size is normal. No pericardial effusion. Minimal coronary artery calcification. No pathologic enlargement of mediastinal or hilar lymph nodes. Lungs demonstrate no significant airspace consolidation. No pleural fluid collection or pneumothorax. Airways are unremarkable. Unremarkable appearance of the thyroid. No chest wall lymphadenopathy. Low-attenuation liver compatible with steatosis. Degenerative changes involving mid to lower thoracic spine and bilateral shoulders. IMPRESSION: * No acute pathologic process. All CT scans at this facility use dose modulation, iterative reconstruction, and/or weight based dosing when appropriate to reduce radiation dose to as low as reasonably achievable. Electronically signed: Maricel Urrutia. Transcribed by: [email or web address], User Resident: Electronically Signed by: MARICEL URRUTIA @ 03/09/2022 07:31 AM Normal [facility] Comment on above: Order Comment: AFib Ablation 03/20 ECHOCARDIO M/2D COMPLETEon 0 12-27-2021 ECHOCARDIO M/2D COMPLETE Patient: ALEN CANTU Exam Date: 12/27/2021 : 1965 Gender:M Ordering : THEO OSULLIVAN Admission #: [id number] Family : DR CLAIXTO SEGOVIA D.O. Order #: [id number] CLICK HERE TO VIEW EXAM ECHOCARDIOGRAM REPORT PROCEDURE: CARDIO PULMONARY ECHOCARDIO M/2D COMP INDICATIONS: Atrial fibrillation, hypertension COMPARISON: None. DESCRIPTION: COMPLETE ECHOCARDIOGRAM Real-time transthoracic echocardiography with 2D, M-mode, spectral and color flow Doppler performed. QUALITY: Technical quality was good. LEFT VENTRICLE: Normal chamber size. Mild concentric left ventricular hypertrophy. Normal systolic function. LV EF: Normal left ventricular ejection fraction, (60%). DIASTOLIC: Normal diastolic function. ATRIAL SEPTUM: LEFT ATRIUM: Normal chamber size. RIGHT ATRIUM: Mild dilatation. RIGHT VENTRICLE: Normal chamber size. Normal right ventricular systolic function. TRICUSPID VALVE: Normal mobility and thickness. No stenosis with trivial regurgitation. Doppler studies reveal mildly (35-45) elevated right sided pressures. RVSP 39 mmHg MITRAL VALVE: Normal mobility and thickness. No evidence of mitral valve stenosis. There is no mitral annular calcification. Trivial mitral regurgitation. AORTIC VALVE: Normal trileaflet appearance. No visible sclerosis. Normal leaflet mobility. No evidence of aortic valve stenosis. No aortic regurgitation. AORTIC ROOT: Normal diameter and appearance. PULMONIC VALVE: Normal thickness and mobility. No stenosis. No regurgitation. PERICARDIUM: No evidence of pericardial effusion. IVC: Collapses with inspirations. IVC is dilated (2.41 cm) PLEURA: CONCLUSION: 1. Mild concentric left ventricular hypertrophy with normal systolic function. LVEF is 60%. 2. Normal right ventricular systolic function. 3. Normal diastolic function. 4. No significant valvular dysfunction. 5. Mildly elevated right-sided pressures. 6. No pericardial effusion. Adult Echocardiography Procedure Report Left Ventricle LVEDD (3.7 - 5.6 cm): 5.50 cm LVESD (2.2 - 4.0 cm): 3.61 cm LVIVS thickness (0.6 - 1.2 cm): 1.26 cm LVPW thickness (0.5 - 1.0 cm): 1.15 cm e': 10.60 cm/s E - e': 6.30 LVOT Area (cm2): 4.52 cm2 LVOT Diameter 2.40 cm Left Ventricular Ejection Fraction: 60 % Left Atrium LA Volume Index (2D A2C): 32 ml/m2 Left Atrium Systolic Dimension: 4.40 cm Left Atrium Systolic Area(A2C): 22.90 cm2 Left Atrium Systolic Area(A4C): 23.40 cm2 Left Atrium Systolic Volume(A2C): 19840 mm3 Left Atrium Systolic Volume(A4C): 26963 mm3 Mitral Valve MV E to A Ratio: 1.20 Mitral Valve A-Wave Peak Velocity: 57.30 cm/s Mitral Valve E-Wave Peak Velocity: 67.10 cm/s Deceleration Time: 135 ms Right Ventricle Aorta AO Root Diam: 3.20 cm Aortic Valve AoV Area (Peak Davey): 3.53 cm2 Peak Velocity(Antegrade Flow): 112.00 cm/s Peak Gradient(Antegrade Flow): 5 mm[Hg] Tricuspid Valve Pulmonic Valve Peak Velocity: 91.60 cm/s Peak Gradient: 3 mm[Hg] Right Atrium Dictated by: Jluis Espinoza M.D. on 12/27/2021 at 20:13 Approved by: Jluis Espinoza M.D. on 12/27/2021 at 20:15 [facility] Vital Signs Date Time Vital Sign Value Performing Clinician Faci conrado 08-09-2022 09:21-0500 Blood Pressure Location Erwin COMBS [facility] 08-09-2022 09:21-0500 Diastolic blood pressure 83 mm[Hg] Erwin COMBS [facility] 08-09-2022 09:21-0500 Heart rate 70 /min Erwin COMBS [facility] 08-09-2022 09:21-0500 Respiratory rate 16 /min Erwin COMBS [facility] 08-09-2022 09:21-0500 Systolic blood pressure 129 mm[Hg] Erwin COMBS [facility] Encounters Encounter Date Encounter Type Care Provider Facility Start: 08-18-2023 ambulatory Erwin COMBS Facili ty:[facility] Start: 06-18-2023 End: 06-18-2023 ambulatory ROGERS Griffiths [facility]PL[facility] Not Available Start: 06-04-2023 End: 06-04-2023 ambulatory ROGERS B APLING Not Available Start: 05-07-2023 End: 05-07-2023 ambulatory ADOLFO CANTU [facility] Start: 04-09-2023 End: 04-09-2023 ambulatory VINCENT MOLINA [facility] Start: 09-25-2022 End: 09-25-2022 ambulatory STELLA ATWOOD [facility] Start: 08-09-2022 End: 08-10-2022 ambulatory Erwin COMBS Facility:[facility] Start: 08-09-2022 End: 08-09-2022 Patient encounter procedure Erwin COMBS [facility] Start: 07-16-2022 End: 07-17-[address] ERWIN COMBS Facility: Start: 05-08-2022 End: 05-09-2022 ambulatory STELLA ATWOOD Facility:[facility] Start: 03-20-2022 End: 03-21-2022 ambulatory CALIXTO SEGOVIA Facility:[facility] Start: 2022 Encounter for preprocedural laboratory examination THEO OSULLIVAN [facility] Start: 03-18-2022 End: [address] CALIXTO SEGOVIA Facility:[facility] Start: 03-18-2022 End: 2022 Encounter for preprocedural laboratory examination DR CALIXTO SEGOVIA Facility: Start: 03-05-2022 End: 03-06-2022 ambulatory CALIXTO SEGOVIA Facility:[facility] Start: 12-27-2021 End: 12-28-[address] CALIXTO SEGOVIA Facility:[facility] Start: 08-14-2021 End: 08-15-[address] CALIXTO SEGOVIA Facility: Procedures Date Procedure Procedure Detail Performing Clinician Start: 07-16-[address] INOCENCIO COMBS Comment on above: Performed By: #### P SAD #### [facility] [address] [place] [address] Dr. Edilson Iyer Start: 09-09-2019 Implantation of radi oactive seed into prostate Erwin COMBS Start: 07-20-2019 Transrectal biopsy o f prostate using ultrasound guidance Erwin COMBS Start: 08-11-2018 Transrectal biopsy o f prostate using ultrasound guidance Erwin COMBS Cardiac ablation usi ng fluoroscopy guidance Erwin COMBS Cholecystectomy Erwin DENTON Decompression of med danyel nerve Erwin COMBS History of hernia repair Maria Elena COMBS Vasectomy Erwin COMBS Immunizations Immunization Date Immunization Notes Care Provider Fa [facility] 11-03-2020 COVID-19, mRNA, LNP- S, PF, 30 mcg/0.3 mL dose Erwin COMBS [facility] Comment on above: Reason for Medicatio n: Prophylaxis 09-22-2020 COVID-19, mRNA, LNP- S, PF, 30 mcg/0.3 mL dose Erwin COMBS [facility] Comment on above: Reason for Medicatio n: Prophylaxis 04-20-2019 influenza virus vaccine, live, attenuated, for intranasal use Erwin COMBS [facility] Payers Date Payer Category Payer Unknown [id number] 2022 Unknown [id number] 2019 Unknown [id number] 1965 Unknown [id number] 2.16.8 [id number] 1965 Unknown [id number] 2.16.8 [id number] 1965 Unknown [id number] 2.16.84 [id number] 1965 Unknown [id number] 2.16.84 [id number] 1965 Unknown [id number] 2.16.84 [id number] 1965 Unknown [id number] 2.16.84 [id number] 1965 Unknown [id number] 2.16.84 [id number] 1965 Unknown [id number] 2.16.8 [id number] 1965 Unknown [id number] 2.16.8 [id number] 1965 Unknown [id number] 2.16.840 .[id number] 1965 Unknown [id number] 2.16.840. [id number] 1958 Unknown [id number] Social History Date Type Detail Facility Start: 07-19-2020 Tobacco smoking status Ex-smoker (fi nding) [facility] Tobacco smoking status Never [facility] Sex Assigned At Male [facility] Functional Status Date Assessment Result Facility 08-09-2022 Functional Status N/A [facility] Clinical Notes 08-14-2021 to 05-07-2023 Note Date & Type Note Facility 05-07-2023 Note [facility] Consult Note Reason for visit: afib, s/p PVI with CTI 03/20/2022 HPI: Alen Cantu is a 58 y.o. year old with past medical history of Patient is here for 1 month follow-up regarding his A-fib. He has history of PVI ablation 03/20/2022 and was previously taking flecainide and is continue to have breakthrough episodes so A-fib ablation was pursued. Patient continues to take Eliquis 5 mg twice daily, [id number] 1 for hypertension. Patient's been taking amiodarone has been feeling well on amiodarone with no concern for side effects, but continues to complain of breakthrough episodes per his [employer] mobile. Patient began to take amiodarone around 04/04/2023 on his own as he had some supply at home. He started taking 200 mg daily on his own without loading dose and since then has noticed no episodes of A-fib. when in A-fib he has complaints of palpitations, racing heart, shortness of breath. When he is not in A-fib he denies any chest pain, shortness of breath, CHUN, lightness, discomfort potation's. He does have chronic LE edema which he takes Lasix for daily. EKG performed on 04/09/23 SR with PVC 05/08/22 SR, nonspecific ST and twave abnormal 03/20/22 SB 05/30/2021 shows atrial fibrillation with rapid ventricular rate at 142 bpm Holter monitor that was performed on 01/16/2018 shows evidence of A. fib PMH: Hypertension, PAF s/p ablation 03/20/2020, MARYANN, pedal edema (CCB vs venous insufficiency?) - Per dr. Osullivan HPI 03/05/2022 cc; Afib Pt has taken Amio and also noted dome pedal edeam that has got better with lasix which he took from his sister. He is scheduled for ablation. In SR today and feels better in SR Prior HPI: 52-year-old gentleman with a past medical history of atrial fibrillation that was initially picked up in 2018 and has since been placed on flecainide and Eliquis. He has been on it and he states that for the most part he has done well especially after he has been treated for sleep apnea with a CPAP. Of late he has noted that he has had multiple episodes of A. fib recurrence that he is aware of and Fatigued and tired compared to when he is in sinus. He is scheduled to have carpal tunnel surgery tomorrow and today's EKG reveals him to be in A. fib with varying ventricular rate between 90 to 110 bpm. Echocardiogram performed on 12/27/2021 shows EF that is normal with a left atrium of normal size with mild dilatation of the right atrium there was no significant valvular issues and RVSP was 39 mmHg. Stress test that was done on 03/12/2018 was exercise treadmill which showed normal exercise to an 86% of his predicted heart rate with a target heart rate of 144 bpm from a resting of 68 bpm PVCs were noted during the stress test But otherwise it was negative for ischemia. PMH: Past Medical History: Diagnosis Date HTN (hypertension) MARYANN (obstructive sleep apnea) 09/27/2022 Paroxysmal atrial fibrillation (CMS/HCC) PSH: Past Surgical History: Procedure Laterality Date ABLATION OF DYSRHYTHMIC FOCUS CARPAL TUNNEL RELEASE CHOLECYSTECTOMY CTA CHEST W AND/OR WO IV CONTRAST 03/09/2022 CT CHEST ANGIOGRAM W AND/OR WO IV CONTRAST THAO CONVERSION HERNIA REPAIR PROSTATE SURGERY SH: Social Determinants of Health Tobacco Use: Medium Risk (05/07/2023) Patient History Smoking Tobacco Use: Former Smokeless Tobacco Use: Never Passive Exposure: Not on file Alcohol Use: Not on file Financial Resource Strain: Not on file Food Insecurity: Not on file Transportation Needs: Not on file Physical Activity: Not on file Stress: Not on file Social Connections: Not on file Intimate Partner Violence: Not on file Depression: Not on file Housing Stability: Not on file Allergies: Allergies Allergen Reactions Oxycodone-Acetaminophen Weight: No weight available Visit Vitals Smoking Status Former Meds: Current Outpatient Medications on File Prior to Visit Medication Sig Dispense Refill amiodarone (Pacerone) 200 mg tablet Take by mouth in the morning. amLODIPine (Norvasc) 10 mg tablet TAKE 1 TABLET BY MOUTH EVERY DAY 90 tablet 3 apixaban (Eliquis) 5 mg tablet Take 1 tablet (5 mg) by mouth in the morning and at bedtime. 60 tablet 11 carvedilol (Coreg) 25 mg tablet TAKE 1 TABLET BY MOUTH TWICE A DAY DIRECTED FOR 90 DAYS 180 tablet 3 furosemide (Lasix) 40 mg tablet Take 1 tablet (40 mg) by mouth in the morning. 90 tablet 3 losartan (Cozaar) 100 mg tablet TAKE 1 TABLET BY MOUTH EVERY DAY 90 tablet 3 omeprazole (PriLOSEC) [address] capsule Take 20 mg by mouth if needed. Do not crush or chew. No current facility-administered medications on file prior to visit. ROS: Cardio Basic Cardiovascular Symptoms: no lightheadedness, no leg edema, no syncope, no orthopnea, no PND, no claudication, Constitut (more content not included)... [facility] 05-07-2023 Note Patient here for 1 m o follow up PAF and hypertension per Anastasiya Molina CNP. Had labs and ECG at last visit on 04/09/2023. Doing very well. Denies chest pain, SOB, palpitations, and bleeding on Eliquis. Review of Systems All other systems reviewed and are negative. [facility] 04-09-2023 Note [facility] CARDIOLOGY PROGR ESS NOTE HPI: Alen Cantu is a 58 y.o. male here for Follow-up (6 month F/U) HPI routine f/U for A fib s/p A fib ablation, HTN Reports over the last couple weeks he has felt afib and confirmed A fib on his mobileodia monitor. States this last week he was in a fib for 4 days- rate controlled but still felt the irregular heart beat, headache. Denied chest pain, shortness of breath, orthopnea Review of Systems Constitutional: Negative. Respiratory: Negative. Cardiovascular: Positive for palpitations. Neurological: Positive for headaches. All other systems reviewed and are negative. Prior HPI per Sara Atwood NP Atrial Fibrillation Past medical history includes atrial fibrillation. He states he has been feeling well overall. He feels like he has more energy to do things. He denies any c/o CP, dyspnea, palpitations, dizziness/LH, syncope, or bleeding issues. He is wanting to discuss discontinuing his anticoagulation. HPI per Dr. Osullivan cc; Afib Pt has taken Amio and also noted dome pedal edeam that has got better with lasix which he took from his sister. He is scheduled for ablation. In SR today and feels better in SR Prior HPI: 52-year-old gentleman with a past medical history of atrial fibrillation that was initially picked up in 2018 and has since been placed on flecainide and Eliquis. He has been on it and he states that for the most part he has done well especially after he has been treated for sleep apnea with a CPAP. Of late he has noted that he has had multiple episodes of A. fib recurrence that he is aware of and Fatigued and tired compared to when he is in sinus. He is scheduled to have carpal tunnel surgery tomorrow and today's EKG reveals him to be in A. fib with varying ventricular rate between 90 to 110 bpm. Visit Vitals BP 112/74 (BP Location: Left arm, Patient Position: Sitting) Pulse 68 SpO2 98% Smoking Status Former Allergies Allergen Reactions Oxycodone-Acetaminophen Medications: Current Outpatient Medications on File Prior to Visit Medication Sig Dispense Refill amiodarone (Pacerone) 200 mg tablet Take by mouth in the morning. amLODIPine (Norvasc) 10 mg tablet TAKE 1 TABLET BY MOUTH EVERY DAY 90 tablet 3 apixaban (Eliquis) 5 mg tablet Take 1 tablet (5 mg) by mouth in the morning and at bedtime. 60 tablet 11 carvedilol (Coreg) 25 mg tablet TAKE 1 TABLET BY MOUTH TWICE A DAY DIRECTED FOR 90 DAYS 180 tablet 3 furosemide (Lasix) 40 mg tablet Take 1 tablet (40 mg) by mouth in the morning. 90 tablet 3 losartan (Cozaar) 100 mg tablet TAKE 1 TABLET BY MOUTH EVERY DAY 90 tablet 3 omeprazole (PriLOSEC) [address] capsule Take 20 mg by mouth if needed. Do not crush or chew. No current facility-administered medications on file prior to visit. Physical Exam: Constitutional: Appearance: Normal appearance. Without apparent distress HENT: Head: Normocephalic and atraumatic. Nose: Nose normal. Mouth/Throat: Mouth: Mucous membranes are moist. Eyes: Extraocular Movements: Extraocular movements intact. Conjunctiva/sclera: Conjunctivae normal. Neck: Vascular: No JVD. Cardiovascular: Rate and Rhythm: Normal rate and regular rhythm. Pulses: Dorsalis pedis pulses are 3 on the right side and 3on the left side. Posterior tibial pulses are 3 on the right side and 3 on the left side. Heart sounds: Normal heart sounds, S1 normal and S2 normal. Pulmonary: Effort: Pulmonary effort is normal. Breath sounds: Normal breath sounds. Abdominal: General: Bowel sounds are normal. Palpations: Abdomen is soft. Musculoskeletal: General: Normal range of motion. Cervical back: Normal range of motion. Right lower leg: No edema. Left lower leg: No edema. Skin: General: Skin is warm and dry. Capillary Refill: Capillary refill takes less than 2 seconds. Neurological: General: No focal deficit present. Mental Status: She is alert and oriented to person, place, and time. Psychiatric: Mood and Affect: Mood normal. Behavior: Behavior normal. Thought Content: Thought content normal. Judgment: Judgment normal. Labs: 04/2022 CBC normal Renal function normal Liver function normal Last lab values have been reviewed CV Testing: EKG today- Sinus rhythm with PVC, non specific ST abnormality, Abnormal ECG EKG performed on 08/15/2019 also shows sinus rhythm with normal intervals 06/01/2021 shows sinus rhythm 05/30/2021 shows atrial fibrillation with rapid ventricular rate at 142 bpm 03/09/2018 shows sinus rhythm Holter monitor that was performed on 01/16/2018 shows evidence of A. fib Echocardiogram performed on 12/27/2021 shows EF that is normal with a left atrium of normal size with mild dilatation of the right atrium there was no significant valvular issues and RVSP was 39 mmHg. Stress test that was done on 03/12/2018 was exercise treadmi (more content not included)... [facility] 04-09-2023 Note Review of Systems All other systems reviewed and are negative. [facility] 04-09-2023 Note Hypertension well co ntrolled 112/74 Continue norvasc, coreg, losartan, lasix [facility] 04-09-2023 Note [id number] VASc= Currently pt admits intermittent A fib noted on Kardia monitor over the last week Send for labs CBC, CMP, TSH and Mag level Continue anticoagulation with eliquis Monitor for s/s of bleeding Continue coreg and pt resumed amiodarone this past Friday, per self for noted paroxysmal A fib and symptomatic with palpitations and TATE States he was in A fib x 4 days without CP or SOB. RTC with EP in 1-2 months [facility] 09-25-2022 Note Cardiovascular Medic [facility] SUBJECTIVE Chief Complaint Patient presents with Atrial Fibrillation Alen Cantu is a 57 y.o. male is being seen today for follow-up on his a.fib. Atrial Fibrillation Past medical history includes atrial fibrillation. He states he has been feeling well overall. He feels like he has more energy to do things. He denies any c/o CP, dyspnea, palpitations, dizziness/LH, syncope, or bleeding issues. He is wanting to discuss discontinuing his anticoagulation. HPI per Dr. Osullivan cc; Afib Pt has taken Amio and also noted dome pedal edeam that has got better with lasix which he took from his sister. He is scheduled for ablation. In SR today and feels better in SR Prior HPI: 52-year-old gentleman with a past medical history of atrial fibrillation that was initially picked up in 2018 and has since been placed on flecainide and Eliquis. He has been on it and he states that for the most part he has done well especially after he has been treated for sleep apnea with a CPAP. Of late he has noted that he has had multiple episodes of A. fib recurrence that he is aware of and Fatigued and tired compared to when he is in sinus. He is scheduled to have carpal tunnel surgery tomorrow and today's EKG reveals him to be in A. fib with varying ventricular rate between 90 to 110 bpm. Past Medical History: Diagnosis Date HTN (hypertension) MARYANN (obstructive sleep apnea) 09/27/2022 Paroxysmal atrial fibrillation (CMS/HCC) Patient Active Problem List Diagnosis MARYANN (obstructive sleep apnea) Paroxysmal atrial fibrillation (CMS/HCC) Primary hypertension Family History Problem Relation Name Age of Onset No Known Problems Mother No Known Problems Father Social History Tobacco Use Smoking status: Former Types: Cigarettes Smokeless tobacco: Never Substance Use Topics Alcohol use: Yes Alcohol/week: 42.0 standard drinks Types: 42 Cans of beer per week Comment: 6 pack of beer daily Allergies Allergen Reactions Oxycodone-Acetaminophen Review of Systems Cardiovascular: Positive for leg swelling. All other systems reviewed and are negative. OBJECTIVE Visit Vitals BP 126/82 (BP Location: Left arm, Patient Position: Sitting) Pulse 69 Ht 1.778 m (5' 10 ) Wt 108 kg (237 lb) SpO2 97% BMI 34.01 kg/m??? Smoking Status Former BSA 2.31 m??? Medications: Current Outpatient Medications: amLODIPine (Norvasc) 10 mg tablet, TAKE 1 TABLET BY MOUTH EVERY DAY, Disp: 90 tablet, Rfl: 3 carvedilol (Coreg) 25 mg tablet, TAKE 1 TABLET BY MOUTH TWICE A DAY DIRECTED FOR 90 DAYS, Disp: 180 tablet, Rfl: 3 furosemide (Lasix) 40 mg tablet, Take 1 tablet (40 mg) by mouth in the morning., Disp: 90 tablet, Rfl: 2 losartan (Cozaar) 100 mg tablet, TAKE 1 TABLET BY MOUTH EVERY DAY, Disp: 90 tablet, Rfl: 3 omeprazole (PriLOSEC) [address] capsule, Take 20 mg by mouth if needed. Do not crush or chew., Disp: , Rfl: apixaban (Eliquis) 5 mg tablet, Take 1 tablet (5 mg) by mouth in the morning and at bedtime., Disp: 180 tablet, Rfl: 3 Physical Exam Vitals reviewed. Constitutional: Appearance: Normal appearance. He is normal weight. HENT: Head: Normocephalic and atraumatic. Right Ear: External ear normal. Left Ear: External ear normal. Nose: Nose normal. Eyes: Extraocular Movements: Extraocular movements intact. Conjunctiva/sclera: Conjunctivae normal. Pupils: Pupils are equal, round, and reactive to light. Neck: Vascular: No carotid bruit. Comments: No JVD Cardiovascular: Rate and Rhythm: Normal rate and regular rhythm. Pulses: Normal pulses. Heart sounds: Normal heart sounds. Comments: BLE hemosiderin staining Pulmonary: Effort: Pulmonary effort is normal. Breath sounds: Normal breath sounds. Abdominal: General: Bowel sounds are normal. Palpations: Abdomen is soft. Musculoskeletal: General: Normal range of motion. Cervical back: Normal range of motion and neck supple. Right lower le+ Pitting Edema present. Left lower le+ Pitting Edema present. Skin: General: Skin is warm and dry. Neurological: General: No focal deficit present. Mental Status: He is alert and oriented to person, place, and time. Psychiatric: Mood and Affect: Mood normal. Behavior: Behavior normal. Thought Content: Thought content normal. Judgment: Judgment normal. Labs/Testing/Procedures: Cardiovascular Laboratory Report ATRIAL FIBRILLATION ABLATION PROCEDURE NOTE DATE OF PROCEDURE: 03/20/2022 PERFORMING PHYSICIAN: Dr. Theo Osullivan CONSENT: Patient NAME OF THE PROCEDURE: Pulmonary Vein Isolation and Comprehensive EP study. INDICATIONS FOR PROCEDURE: 1. Persistent atrial fibrillation having failed pharmacologic therapy. PROCEDURES PERFORMED: 1. Sonosite guided venous access as noted below and images stored. 2. Comprehensive EP study an (more content not included)... [facility] 09-25-2022 Note Patient here for 5 m o follow up and to discuss the need for Eliquis. He would like to stop it if this can be done safely. Says he hasn't been out of rhythm for a long time . Denies chest pain, SOB, palpitations, and bleeding on Eliquis. LE edema is no more than usual for him. Review of Systems Cardiovascular: Positive for leg swelling. All other systems reviewed and are negative. [facility] 08-09-2022 Hospital Discharge instructions Patient Education 08/09/2022 10:12:33 Benign Prostatic Hyperplasia Benign Prostatic Hyperplasia Benign prostatic hyperplasia (BPH) is an enlarged prostate gland that is caused by the normal aging process and not by cancer. The prostate is a walnut-sized gland that is involved in the production of semen. It is located in front of the rectum and below the bladder. The bladder stores urine and the urethra is the tube that carries the urine out of the body. The prostate may get bigger as a man gets older. An enlarged prostate can press on the urethra. This can make it harder to pass urine. The build-up of urine in the bladder can cause infection. Back pressure and infection may progress to bladder damage and kidney (renal) failure. What are the causes? This condition is part of a normal aging process. However, not all men develop problems from this condition. If the prostate enlarges away from the urethra, urine flow will not be blocked. If it enlarges toward the urethra and compresses it, there will be problems passing urine. What increases the risk? This condition is more likely to develop in men over the age of 50 years. What are the signs or symptoms? Symptoms of this condition include: Getting up often during the night to urinate. Needing to urinate frequently during the day. Difficulty starting urine flow. Decrease in size and strength of your urine stream. Leaking (dribbling) after urinating. Inability to pass urine. This needs immediate treatment. Inability to completely empty your bladder. Pain when you pass urine. This is more common if there is also an infection. Urinary tract infection (UTI). How is this diagnosed? This condition is diagnosed based on your medical history, a physical exam, and your symptoms. Tests will also be done, such as: A post-void bladder scan. This measures any amount of urine that may remain in your bladder after you finish urinating. A digital rectal exam. In a rectal exam, your health care provider checks your prostate by putting a lubricated, gloved finger into your rectum to feel the back of your prostate gland. This exam detects the size of your gland and any abnormal lumps or growths. An exam of your urine (urinalysis). A prostate specific antigen (PSA) screening. This is a blood test used to screen for prostate cancer. An ultrasound. This test uses sound waves to electronically produce a picture of your prostate gland. Your health care provider may refer you to a specialist in kidney and prostate diseases (urologist). How is this treated? Once symptoms begin, your health care provider will monitor your condition (active surveillance or watchful waiting). Treatment for this condition will depend on the severity of your condition. Treatment may include: Observation and yearly exams. This may be the only treatment needed if your condition and symptoms are mild. Medicines to relieve your symptoms, including: ?Medicines to shrink the prostate. ?Medicines to relax the muscle of the prostate. Surgery in severe cases. Surgery may include: ?Prostatectomy. In this procedure, the prostate tissue is removed completely through an open incision or with a laparoscope or robotics. ?Transurethral resection of the prostate (TURP). In this procedure, a tool is inserted through the opening at the tip of the penis (urethra). It is used to cut away tissue of the inner core of the prostate. The pieces are removed through the same opening of the penis. This removes the blockage. ?Transurethral incision (TUIP). In this procedure, small cuts are made in the prostate. This lessens the prostate's pressure on the urethra. ?Transurethral microwave thermotherapy (TUMT). This procedure uses microwaves to create heat. The heat destroys and removes a small amount of prostate tissue. ?Transurethral needle ablation (TUNA). This procedure uses radio frequencies to destroy and remove a small amount of prostate tissue. ?Interstitial laser coagulation (ILC). This procedure uses a laser to destroy and remove a small amount of prostate tissue. ?Transurethral electrovaporization (TUVP). This procedure uses electrodes to destroy and remove a small amount of prostate tissue. ?Prostatic urethral lift. This procedure inserts an implant to push the lobes of the prostate away from the urethra. Follow these instructions at home: Take [id number] and prescription medicines only as told by your health care provider. Monitor your symptoms for any changes. Contact your health care provider with any changes. Avoid drinking large amounts of liquid before going to bed or out in public. Avoid or reduce how much caffeine or alcohol you drink. Give yourself time when you urinate. Keep all follow-up visits as told by your health care provider. This is important. Contact a health care provider if: You have unexplained back pain. Your symptoms do not get better with treatment. You develop side effects from the medicine you are taking. Your urine becomes very dark or has a bad smell. Your lower abdomen becomes distended and you have trouble passing your urine. Get help right away if: You have a fever or chills. You suddenly cannot urinate. You feel lightheaded, or very dizzy, or you faint. There are large amounts of blood or clots in the urine. Your urinary problems become hard to manage. You develop moderate to severe low back or flank pain. The flank is the side of your body between the ribs and the hip. These symptoms may represent a serious problem that is an emergency. Do not wait to see if the symptoms will go away. Get medical help right away. Call your local emergency services (911 in the [place] Do not drive yourself to the hospital. Summary Benign prostatic hyperplasia (BPH) is an enlarged prostate that is caused by the normal aging process and not by cancer. An enlarged prostate can press on the urethra. This can make it hard to pass urine. This condition is part of a normal aging process and is more likely to develop in men over the age of 50 years. Get help right away if you suddenly cannot urinate. This information is not intended to replace advice given to you by your health care provider. Make sure you discuss any questions you have with your health care provider. Document Released: 07/07/2006 Document Revised: 06/01/2019 Document Reviewed: 08/11/2017 [employer] Patient Education 2020 [employer]. Follow Up Care 07/23/2021 10:55:23 With:KAYDEN URBINA, Erwin Mojica, URL Address: [address] [place] [address] [place] [id number] When: Unknown Comments:1 year w/ PSA [facility] 08-14-2021 Note HOME SLEEP STUDY Ordering Physician: Dr. Riaz Segovia Procedure Date:08/14/2021 CLINICAL HISTORY: This is a 56-year-old male who weighs 252 pounds with a height of 71 inches with a body mass index o 35.1 who was referred for a sleep study due to witnessed episodes of apnea, daytime somnolence, weight gain, high blood pressure, fatigue and morning headaches. TOTAL RECORDING TIME: 7 hours and 56 minutes. TOTAL DURATION: 7 hours and 44 minutes. COMPREHENSIVE VENTILATORY MONITORING: The patient had 104 apneas which were all obstructive and 234 hypopneas. This led to an apnea-hypopnea index of 44 per hour. The average oxygenation while awake was 90% with a minimum oxygen saturation down to 66%. SNORING DATA: The patient had 2879 snoring occurrences. PULSE DATA: The patient's average pulse was 55 per minute, minimum pulse rate was 43 beats per minute, maximum pulse rate was 86 beats per minute. IMPRESSION: 1. This patient does meet criteria for a severe obstructive sleep apnea with hypoxia and would benefit from an in-house titration study to be sure that the patient's hypoxia was also controlled with a control of the apnea. 2. The patient would benefit from treatment of any other coexisting medical condition including obesity, insomnia or depressions. 3. Please correlate clinically. [facility] Evaluation + Plan note Future Appointments Appointment Date:08/04/2023 08:45:00 AM Scheduled Provider:Erwin COMBS MD Location:[facility] Appointment Type:URO Office Visit Diagnostic Tests PendingPSA Total 06/20/23 [facility] Hospital course Narrative No data available for this section [facility] Progress note No data available for this section [facility] Summary Purpose Family History No Family History Records FoundNo Family History Records FoundNo Family History Records FoundNo Family History Records FoundNo Family History Records Found Advance Directives No Advanced Directives Records FoundNo Advanced Directives Records FoundNo Advanced Directives Records FoundNo Advanced Directives Records FoundNo Advanced Directives Records Found Additional Source Comments (unrecognized sect ion and content) No Status Records FoundNo Status Records FoundNo Status Records FoundNo Status Records FoundNo Status Records Found INFORMATION SOURCE (unrecogn ized section and content) DATE CREATED AUTHOR 03/26/2022 [facility] DATE CREATED AUTHOR AUTHOR'S ORGANIZ ATION 08/01/2022 [facility] DATE CREATED AUTHOR AUTHOR'S ORGANIZ ATION 05/04/2023 [facility] DATE CREATED AUTHOR AUTHOR'S ORGANIZ ATION 05/08/2023 [facility] DATE CREATED AUTHOR AUTHOR'S ORGANIZ ATION 06/20/[address] [facility] EPIC Patient Care team informatio n (unrecognized section and content) Personnel Name: CALIXTO SEGOVIA DO Address: Address: [address] [place] [address] FOR RECORDS PERTAINING TO PATIENTS WHO ARE OR HAVE BEEN ENROLLED IN A CHEMICAL DEPENDENCY/SUBSTANCEABUSE PROGRAM, SOME INFORMATION MAY BE OMITTED. This clinical summary was aggregated from multiple sources. Caution should be exercised in using it in the provision of clinical care. This summary normalizes information from multiple sources, and as a consequence, information in this document may materially change the coding, format and clinical context of patient data. In addition, data may be omitted in some cases. CLINICAL DECISIONS SHOULD BE BASED ON THE PRIMARY CLINICAL RECORDS. [employer] [facility]. provides no warranty or guarantee of the accuracy or completeness of information in this document.
[2023-07-11 09:49] LABS: Prostate Specific Antigen Dx 0.41 ng/mL (<=4.00)
== END 2023-07-11 08:30 | disposition home or self-care (01) ==
LOC: LAB 08:30
PROVIDERS: PCP Internal Medicine; Visit Provider Urology
DX: Z85.46 Personal history of malignant neoplasm of prostate (principal)
CPT/HCPCS: 36415; 84153

== ENCOUNTER 2023-11-18 07:46 | Outpatient (OUT) | payer BC, SELFPAY ==
--- NOTE | 2023-11-18 07:51 | US_ITS ---
The [address] [address] Patient Name: ALEN CALDERON MRN: [id number] date: 1965 Sex: M Assigned Patient Location: US Current Patient Location: US Accession/Order Number: [id number] Exam Date: 11/18/2023 07:52 Report Date: 11/18/2023 08:53 At the request of: ABBY NAGEL Procedure: US thyroid EXAMINATION: US thyroid HISTORY: Swelling Mass Or Lump In Head And Neck R22.0 COMPARISON: No relevant comparison available. TECHNIQUE: Sonographic images of the thyroid gland were obtained. FINDINGS: The right thyroid lobe measures 4.2 x 2.4 x 2.4 cm. Single nodule. Nodule 1:1.5 x 1.2 x 1.4 cm. Solid, hypoechoic, wide, smooth margins, no calcifications. TR 4 The thyroid isthmus is thickened measuring 0.7 cm. No focal nodule The left thyroid lobe is normal in size, contour and echotexture measuring 4.0 x 2.1 x 2.5 cm. Single cystic TR 1 nodule. Corresponding to the patient's right palpable mass is a hypoechogenic hypervascular lesion measuring 2.5 x 2.3 x 2.2 cm this appears to be adjacent but extrinsic to the parotid gland with a hypervascular hyperechogenic hilum US/US thyroid IMPRESSION: Enlarged atypical 2.5 cm cervical lymph node in the region of the patient's palpable abnormality 1.5 cm right thyroid TR 4 nodule TI-RADS: The [employer] TI-RADS committee's white paper recommendations for thyroid lesions classified as TR4 (moderately suspicious) are listed below: > 1.0 cm. Follow-up ultrasound in 1, 2, 3, and 5 years. > 1.5 cm. FNA. J. Am Julianne Radiol 2017;14:587-595. Electronically authenticated by: DOROTHY GANN Date: 11/18/2023 08:53
== END 2023-11-18 07:47 | disposition home or self-care (01) ==
LOC: US 07:46
PROVIDERS: PCP Internal Medicine; Visit Provider Nurse Practitioner Family
DX: R22.0 Localized swelling, mass and lump, head (principal); R22.1 Localized swelling, mass and lump, neck; E04.1 Nontoxic single thyroid nodule
CPT/HCPCS: 76536

== ENCOUNTER 2023-12-02 09:12 | Outpatient (OUT) | payer BC, SELFPAY ==
--- NOTE | 2023-12-02 09:15 | CT_ITS ---
[address] [address] Patient Name: ALEN CALDERON MRN: [id number] date: 1965 Sex: M Assigned Patient Location: CT Current Patient Location: CT Accession/Order Number: [id number] Exam Date: 12/02/2023 09:40 Report Date: 12/02/2023 14:52 At the request of: ABBY NAGEL Procedure: CT soft tissue neck w con EXAMINATION: CT soft tissue neck w con HISTORY: Swelling, Mass Or Lump In Head And Neck, Abnormal Ultrasound ; right side neck swelling COMPARISON: Ultrasound thyroid 11/18/2023 TECHNIQUE: Axial, Coronal, and Sagittal CT images created with IV contrast. Dose reduction techniques were achieved by using automated exposure control and/or adjustment of mA and/or kV according to patient size and/or use of iterative reconstruction technique. FINDINGS: NASOPHARYNX: No asymmetry of the fossae of Rosenmuller and torus tubarius. ORAL CAVITY: No visible mass. OROPHARYNX: No asymmetry of the facial and lingual tonsils. HYPOPHARYNX: Smoothly marginated soft tissue projecting into right side of hypopharynx, 0.8 x 0.7 cm in axial plane, 2.1 cm cephalad caudad. LARYNX: No mass or asymmetry of the vocal cords. SINUSES: No significant fluid or mucosal thickening. NECK GLANDS: No visible abnormality of the parotid, submandibular, and thyroid glands. LYMPH NODES: Anterior medial to the right sternocleidomastoid muscle corresponding to patient's palpable lump is a 2.9 x 2.8 x 2.2 cm smoothly marginated homogeneous mass. This contacts but does not appear to compress the right jugular vein. VASCULATURE: No suspicious abnormality. BONES: Straightening of normal lordotic curvature. Mild to moderate degenerative disc disease C5-6, C6-C7, C7-T1. OTHER: No additional imaging findings. CT/CT soft tissue neck w con IMPRESSION: 1. Patient's palpable lump corresponds to a 2.9 cm mass anterior medial to the right sternocleidomastoid muscle, nonspecific but suspected to represent an enlarged lymph node. Consider ultrasound evaluation and ultrasound-guided tissue sampling. 2. Soft tissue projecting into hypopharynx from the right margin of uncertain etiology. Consider direct visualization. Electronically authenticated by: PIPER IRVIN Date: 12/02/2023 14:52
== END 2023-12-02 09:13 | disposition home or self-care (01) ==
LOC: CT 09:12
PROVIDERS: PCP Internal Medicine; Visit Provider Nurse Practitioner Family
DX: R22.0 Localized swelling, mass and lump, head (principal); R22.1 Localized swelling, mass and lump, neck
CPT/HCPCS: 70491; Q9967

== ENCOUNTER 2024-03-09 15:02 | Emergency (ER) | payer BC, SELFPAY ==
[2024-03-09] VITALS (17 sets, daily range): BP systolic 100–121; BP diastolic 70–87; PULSE 78–96; TEMP 36.7; O2SAT 94–99; BMI 30.1
--- OUTSIDE RECORDS SUMMARY | 2024-03-09 15:15 | XMS_ITS | CCD ---
Author Organization [facility] Care Team Providers Care Bingo Worker Name Role Phone CHARLY HOOPER Referring Unavailable BALL, CHARLY Primary Care Unavailable PROMISE, THEO Attending Unavailable PROMISE, THEO Admitting Unavailable BALL, CHARLY Primary Care Unavailable BALL, CHARLY Referring Unavailable PROMISE, THEO Attending Unavailable PROMISE, THEO Admitting Unavailable MONIQUE, DR LEVINE Admitting Unavailable MONIQUE, DR LEVINE Attending Unavailable MONIQUE, DR LEVINE Consulting Unavailable BALL, DR PARKS Primary Care Unavailable BALL, DR PARKS Admitting Unavailable BALL, DR PARKS Attending Unavailable BALL, DR PARKS Primary Care Unavailable BALL, DR PARKS Primary Care Unavailable PROMISE, THEO Admitting Unavailable PROMISE, THEO Attending Unavailable PROMISE, THEO Consulting Unavailable BALL, DR PARKS Primary Care Unavailable PROMISE, THEO Admitting Unavailable PROMISE, THEO Attending Unavailable PROMISE, THEO Consulting Unavailable STELLA ATWOOD Admitting Unavailable BALL, DR PARKS Primary Care Unavailable STELLA ATWOOD Attending Unavailable STELLA ATWOOD Consulting Unavailable CHARLY HOOPER Primary Care Physician [phone] VINCENT MOLINA Attending Unavailable STELLA ATWOOD Attending Unavailable ADOLFO CANTU Attending Unavailable Abner MONIQUE Attending Unavailable Abner MONIQUE Attending Unavailable DO Charly Hooper Primary Care Provider [phone] DO Charly Nowak Attending Provider [phone] MD Kraly Nielsen Attending Provider DO Charly Nowak Referring Provider [phone] MD Karly Nielsen Attending Provider DO Charly Nowak Referring Provider DO Nohemi Hudson Attending Provider [phone] MD Karly Nielsen Attending Provider Shelbiek, DO Charly Referring Provider MIGUEL Squires Attending Provider [phone] Murcek, DO Charly Referring Provider MD Karly Nielsen Attending Provider Murjaiden, DO Charly Referring Provider MD Karly Nielsen Attending Provider MD Marbella Muñoz Attending Provider She, DO Charly Referring Provider MD Karly Nielsen Attending Provider MD Marbella Muñoz Attending Provider Murjaiden, DO Charly Referring Provider She, DO Charly Referring Provider [phone] MD Karly Nielsen Attending Provider APLING, ROGERS B Attending Unavailable APLING, ROGERS B Attending Unavailable APLING, ROGERS B Attending Unavailable APLING, ROGERS B Attending Unavailable TIMMIS, MATEO H Attending Unavailable MURCEKCHARLY W Attending Unavailable TIMMIS, MATEO H Referring Unavailable MURCEK, CHARLY W Attending Unavailable MURCEKCHARLY Attending Unavailable JYOTI GRIFFIN Attending Unavailable NOHEMI HUDSON Attending Unavailable MACARENA SAAB Attending Unavailable MURCEK, CHARLY W Attending Unavailable TIMMIS, MATEO H Referring Unavailable Murcek, DO Charly Referring Provider MD Karly Nielsen Attending Provider MD Marbella Muñoz Attending Provider She, DO Parks Referring Provider MD Karly Nielsen Attending Provider [phone] She, DO Charly Referring Provider MD Karly Nielsen Attending Provider [phone] Ball, Charly Primary Care Unavailable ShawSiriMili M Attending Unavailable Shaw, Mili M Admitting Unavailable Shaw, Mili M Admitting Unavailable Shaw, Mili M Attending Unavailable Ball, Charly Primary Care Unavailable Ball, Charly Primary Care Unavailable Murcek, Charly Referring Unavailable Karly Nielsen Admitting Unavailabl e Micah-Karly Garcia Attending Unavailabl e Toni, Norleena R Admitting Unavailable Ball, Charly Primary Care Unavailable Toni, Norleena R Attending Unavailable Ball, Charly Primary Care Unavailable Sahw, Mili M Attending Unavailable Shaw, Mili M Admitting Unavailable Ball, Charly Primary Care Unavailable Shaw, Mili M Attending Unavailable Shaw, Mili M Admitting Unavailable Shaw, Mili M Admitting Unavailable Ball, Charly Primary Care Unavailable Shaw, Mili M Attending Unavailable Ball, Charly Primary Care Unavailable Shaw, Mili M Admitting Unavailable Shaw, Mili M Attending Unavailable Murcek, Charly Admitting Unavailable Murcek, Charly Attending Unavailable Ball, Charly Primary Care Unavailable Murcek, Charly Admitting Unavailable Murcek, Charly Attending Unavailable Ball, Charly Primary Care Unavailable Ball, Charly Primary Care Unavailable Itzkowitz, Nohemi Admitting Unavailable Itzkowitz, Nohemi Attending Unavailable Ball, Charly Primary Care Unavailable Murcek, Charly Admitting Unavailable Murcek, Charly Attending Unavailable Ball, Charly Primary Care Unavailable ShawSiriMili M Attending Unavailable Shaw, Mili M Admitting Unavailable Murcek, DO Charly Referring Provider [phone] MD Karly Nielsen Attending Provider Allergies Allergy Classification Reported Allergen(s) Allergy Type Date of Onset Reaction(s) Facility Acetaminophen (2 sources) Acetaminophen Drug Allergy 4 [facility] Opioid Agonists (2 sources) oxyCODONE Drug Allergy 4 [facility] (1 source) Acetaminophen / oxyCODONE Drug Allergy [address] [facility] Repository (18 sources) oxyCODONE; Translations: [oxyCODONE] Drug Allergy 4 rash [facility] Repository (2 sources) oxyCODONE; Translations: [oxycodone] Drug Allergy Itching (finding) [facility] (1 source) Acetaminophen / oxyCODONE; Translations: [OXYCODONE-ACETAM INOPHEN] Drug Allergy 2 [facility] Repository (17 sources) Acetaminophen; Translations: [acetaminophen] Drug Allergy 4 [facility] (1 source) oxyCODONE Drug Allergy 4 [facility] Repository Medications Current Medications Medication Drug Class(es) Dates Sig (Normalized) Sig (Original) amiodarone hydrochloride 200 mg oral tablet (18 sources) Antiarrhythmic Start: 12-23-2023 take 200 mg by mouth every other day Amiodarone Active 200 MG PO .every other day December 23, 2023 12:00am Start: 08-18-2023 take 1 mg by mouth once daily amiodarone 200 mg Tab mg tab(s), Oral, Daily, Refills(s) 0 Start Date: 08/18/23 Status: Ordered amLODIPine 10 mg oral tablet (19 sources) Dihydropyridine Calcium Channel Tanner Start: 12-23-2023 take 10 mg by mouth once daily in the morning Amlodipine Active 10 MG PO Every morning December 23, 2023 12:00am Start: 08-18-2023 amLODIPine 10 mg Tab Refills(s) 0 Start Date: 08/18/23 Status: Ordered Start: 04-28-2019 amlodipine Ora l, Daily, Refills(s) 0 Start Date: 04/28/19 Status: Ordered apixaban 5 mg oral tablet (19 sources) Factor Xa Inhibitor Start: 12-23-2023 take 1 tablet by mouth twice daily Apixaban (Eliquis) 5 mg tablet Active 5 MG PO Twice daily December 23, 2023 12:00am Start: 08-18-2023 Eliquis 5 mg o ral tablet Refills(s) 0 Start Date: 08/18/23 Status: Ordered Start: 04-28-2019 Eliquis Oral, BID, Refills(s) 0 Start Date: 04/28/19 Status: Ordered carvedilol 25 mg oral tablet (19 sources) alpha-Adrenergic Tanner, beta-Adrenergic Tanner Start: 12-23-2023 take 25 mg by mouth twice daily Carvedilol Active 25 MG PO Twice daily December 23, 2023 12:00am Start: 08-18-2023 carvedilol 25 mg Tab Refills(s) 0 Start Date: 08/18/23 Status: Ordered Start: 04-28-2019 carvedilol Ora l, Refills(s) 0 Start Date: 04/28/19 Status: Ordered cyclobenzaprine hydrochloride 10 mg oral tablet (4 sources) Muscle Relaxant Start: 02-19-2024 take 10 mg by mouth once daily at bedtime Cyclobenzaprine Active 10 MG PO Daily at bedtime February 19, 2024 12:00am furosemide 40 mg oral tablet (19 sources) Loop Diuretic Start: 12-23-2023 take 40 mg by mouth once daily in the morning Furosemide Active 40 MG PO Every morning December 23, 2023 12:00am Start: 08-18-2023 furosemide 40 mg Tab Refills(s) 0 Start Date: 08/18/23 Status: Ordered Start: 08-09-2022 furosemide 40 mg Tab Refills(s) 0 Start Date: 08/09/22 Status: Ordered ibuprofen 600 mg oral tablet (11 sources) Nonsteroidal Anti-inflammatory Drug Start: 01-20-2024 Ibuprofen Active 600 MG PO EVERY 4-6 HOURS 14 January 20, 2024 12:00am do not exceed 4 doses in a 24 hour period losartan potassium 100 mg oral tablet (19 sources) Angiotensin 2 Receptor Tanner Start: 12-23-2023 take 100 mg by mouth once daily in the morning Losartan Active 100 MG PO Every morning December 23, 2023 12:00am Start: 08-18-2023 losartan 100 m g Tab Refills(s) 0 Start Date: 08/18/23 Status: Ordered Start: 04-28-2019 losartan Oral, Daily, Refills(s) 0 Start Date: 04/28/19 Status: Ordered mometasone furoate 1 mg/ml topical cream (14 sources) Corticosteroid Start: 01-07-2024 Mometasone Act candice 1 APPLIC TOPICAL Daily January 07, 2024 12:00am Apply to radiation site, once a day, AFTER radiation treatments. morphine sulfate 2 mg/ml oral solution (18 sources) Opioid Agonist Start: 02-02-2024 End: 02-02-2024 take 5 mg by mouth every four to six hours Morphine Active 5 MG PO EVERY 4-6 HOURS 100 February 02, 2024 Start: 02-02-2024 End: 02-02-2024 take 5 mg by mouth every four to six hours Morphine Discontinued 5 MG PO EVERY 4-6 HOURS 100 February 02, 2024 February 02, 2024 11:28am Start: 02-02-2024 End: 02-02-2024 take 5 mg by mouth every four to six hours Morphine Discontinued 5 MG PO EVERY 4-6 HOURS 100 February 02, 2024 February 02, 2024 11:28am Start: 02-02-2024 End: 02-02-2024 take 5 mg by mouth every four to six hours Morphine Discontinued 5 MG PO EVERY 4-6 HOURS 100 February 02, 2024 February 02, 2024 11:28am Start: 02-02-2024 End: 02-02-2024 take 5 mg by mouth every four to six hours Morphine Discontinued 5 MG PO EVERY 4-6 HOURS 100 February 02, 2024 February 02, 2024 11:28am Start: 02-02-2024 End: 02-02-2024 take 5 mg by mouth every four to six hours Morphine Discontinued 5 MG PO EVERY 4-6 HOURS 100 February 02, 2024 February 02, 2024 11:28am Start: 02-02-2024 End: 02-02-2024 take 5 mg by mouth every four to six hours Morphine Discontinued 5 MG PO EVERY 4-6 HOURS 100 February 02, 2024 February 02, 2024 11:28am Start: 02-02-2024 End: 02-02-2024 take 5 mg by mouth every four to six hours Morphine Discontinued 5 MG PO EVERY 4-6 HOURS 100 February 02, 2024 February 02, 2024 11:28am Start: 02-02-2024 End: 02-02-2024 take 5 mg by mouth every four to six hours Morphine Discontinued 5 MG PO EVERY 4-6 HOURS 100 February 02, 2024 February 02, 2024 11:28am omeprazole 20 mg delayed release oral capsule (20 sources) Proton Pump Inhibitor Start: 01-21-2024 Omeprazo le Active 0 .ROUTE .COMPLEX January 21, 2024 5:54pm TAKE 1 CAPSULE DAILY ON AN EMPTY STOMACH FOLLOWED IN 30 MINUTES BY BREAKFAST FOR 90 DAYS Start: 11-12-2023 End: 01-21-2024 take 20 mg by mouth once daily Omeprazole Discontinued 20 MG PO Daily November 12, 2023 12:00am January 21, 2024 5:54pm Start: 08-18-2023 omeprazole 20 mg Cap-DR Refills(s) 0 Start Date: 08/18/23 Status: Ordered Start: 08-09-2022 omeprazole 20 mg Cap-DR Refills(s) 0 Start Date: 08/09/22 Status: Ordered ondansetron 8 mg disintegrating oral tablet (14 sources) Serotonin-3 Receptor Antagonist Start: 01-07-2024 take 8 mg by mouth every eight hours Ondansetron Active 8 MG PO Every 8 hours January 07, 2024 12:00am prochlorperazine 10 mg oral tablet (14 sources) Phenothiazine Start: 01-07-2024 take 1 tablet by mouth every six hours Prochlorperazine Maleate (Compazine) 10 mg tablet Active 10 MG PO Every 6 hours January 07, 2024 12:00am Sucralfate (2 sources) Aluminum Complex Start: 03-01-2024 take 1 g by mouth twice daily Sucralfate Active 1 GM PO Twice daily 300 March 01, 2024 12:00am traMADol hydrochloride 50 mg oral tablet (6 sources) Opioid Agonist Start: 02-16-2024 take 50 mg by mouth every six hours Tramadol Active 50 MG PO Every 6 hours 60 February 16, 2024 9:30am traZODone hydrochloride 50 mg oral tablet (19 sources) Serotonin Reuptake Inhibitor Start: 02-05-2024 take 1 tablet by mouth once daily at bedtime as needed for sleep Trazodone Active 0 .ROUTE .COMPLEX February 05, 2024 2:36pm TAKE 1 TABLET BY MOUTH ONCE DAILY AT BEDTIME NEEDED FOR SLEEP FOR 30 DAYS Start: 01-12-2024 End: 02-05-2024 take 50 mg by mouth once daily at bedtime Trazodone Discontinued 50 MG PO Daily at bedtime January 12, 2024 12:00am February 05, 2024 2:36pm Completed/Discontinued Medications Medication Drug Class(es) Dates Sig (Normalized) Sig (Original) doxycycline hyclate 100 mg delayed release oral tablet (18 sources) Tetracycline-cla ss Drug Start: 11-13-2023 End: 12-23-2023 take 100 mg by mouth twice daily Doxycycline Hyclate Discontinued 100 MG PO Twice daily 09 05November 13, 2023 12:00am December 23, 2023 8:02am Magic Mouthwash W/Lidocaine 240 Ml Bottle (20 sources) Start: 02-18-2024 End: 02-18-2024 Magic Mouthwash W/Lidocaine 240 Ml Bottle Discontinued 5 - 10 ML PO Q6H February 18, 2024 12:00am February 18, 2024 1:48pm hydrocortisone 20 mg tablet 120 mg; diphenhydramine 12.5 mg/5 mL oral liquid 60 mL; Ora-Sweet oral syrup 60 mL; nystatin 100,000 unit/mL oral suspension 60 mL; Lidocaine Viscous 2 % mucosal solution 60 mL; Per 240 mL Instructions - Swish and Swallow dose Start: 01-28-2024 take 5 mL by mouth f our times daily as needed Magic Mouthwash W/Lidocaine 240 Ml Bottle Active 5 ML PO Four times daily January 28, 2024 8:09am Take 5ml by mouth four times a day, as needed. SWISH AND SWALLOW. Start: 01-08-2024 End: 01-28-2024 take 2 tablets by mouth three times daily Magic Mouthwash W/Lidocaine 240 Ml Bottle Discontinued 10 ML PO Three times daily 240 January 08, 2024 12:00am January 28, 2024 8:11am hydrocortisone 20 mg tablet 120 mg; diphenhydramine 12.5 mg/5 mL oral liquid 60 mL; Ora-Sweet oral syrup 60 mL; nystatin 100,000 unit/mL oral suspension 60 mL; Lidocaine Viscous 2 % mucosal solution 60 mL; Per 240 mL Start: 01-08-2024 take 2 tablets by mo uth three times daily Magic Mouthwash W/Lidocaine 240 Ml Bottle Active 10 ML PO Three times daily 240 January 08, 2024 12:00am hydrocortisone 20 mg tablet 120 mg; diphenhydramine 12.5 mg/5 mL oral liquid 60 mL; Ora-Sweet oral syrup 60 mL; nystatin 100,000 unit/mL oral suspension 60 mL; Lidocaine Viscous 2 % mucosal solution 60 mL; Per 240 mL tadalafil 20 mg oral tablet (1 source) Phosphodiesterase 5 Inhibitor Start: 08-18-2023 take 1 tablet by mouth every hour as needed tadalafil 20 mg Tab 20 mg = 1 tab(s), Oral, As Directed, PRN for erectile dysfunction, Take one pill 1 hour prior to sexual activity., # 30 tab(s), Refills(s) 3, Pharmacy: [id number], 177, cm, 08/18/23 10:35:00 EST, Height/Length Dosing, 113.2, kg, 08/18/23 10:35:00 EST, Weight Dosing Start Date: 08/18/23 Status: Ordered Problems Problem Classification Problem Date Documented Date Episodic/Chronic Acute and chronic tonsillitis (1 source) Other chronic diseases of tonsils and adenoids; Translations: [Other chronic diseases of tonsils and adenoids] Onset: 12-25-19 Chronic Cancer of head and neck (20 sources) Malignant tumor of oropharynx; Translations: [Malignant neoplasm of oropharynx, unspecified] Onset: 12-24-1901-06-2024 Chronic Cancer of prostate (2 sources) Malignant tumor of prostate 01-10-2020 Chronic Cancer of prostate (5 sources) Personal history of malignant neoplasm of prostate; Translations: [History of malignant neoplasm of prostate] Onset: 07-19-20 Episodic Cardiac dysrhythmias (12 sources) Paroxysmal atrial fibrillation; Translations: [Unspecified atrial fibrillation] Onset: 12-28-19 Chronic Diseases of mouth; excluding dental (12 sources) Oral lesion; Translations: [Other lesions of oral mucosa] 01-08-2024 Episodic Disorders of lipid metabolism (2 sources) Hypercholesterolemia 04-28-2019 Chronic Esophageal disorders (2 sources) Gastroesophageal reflux disease 04-28-2019 Chronic Essential hypertension (5 sources) Essential (primary) hypertension; Translations: [Hypertensive disorder] Onset: 01-01-2004-28-2019 Chronic Genitourinary symptoms and ill-defined conditions (5 sources) Nocturia; Translations: [Microscopic hematuria] Onset: 07-19-2008-04-2019 Episodic Glaucoma (2 sources) Glaucoma 04-28-2019 Chronic Hyperplasia of prostate (8 sources) Benign prostatic hyperplasia with lower urinary tract symptoms; Translations: [Benign prostatic hypertrophy with outflow obstruction] Onset: 07-16-20 Chronic Nausea and vomiting (9 sources) Nausea; Translations: [Nausea] Onset: 02-23-2002-23-2024 Episodic Other aftercare (10 sources) Patient encounter status; Translations: [Encounter for palliative care] 01-27-2024 Episodic Other aftercare (11 sources) Encounter for palliative care; Translations: [Encounter for palliative care] Onset: 01-27-2001-27-2024 Episodic Other gastrointestinal disorders (1 source) Dysphagia, oral phase; Translations: [Dysphagia, oral phase] Onset: 02-24-20 Episodic Other male genital disorders (3 sources) Male erectile dysfunction, unspecified; Translations: [Erectile dysfunction] Onset: 07-19-20 Chronic Other male genital disorders (2 sources) Impotence 10-08-2019 Chronic Other male genital disorders (2 sources) 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 Other nervous system disorders (10 sources) Pain due to neoplastic disease; Translations: [Neoplasm related pain (acute) (chronic)] 01-27-2024 Chronic Other nervous system disorders (20 sources) Neoplasm related pain (acute) (chronic); Translations: [Neoplasm related pain (acute) (chronic)] Onset: 02-02-2001-27-2024 Chronic Other nutritional; endocrine; and metabolic disorders (2 sources) Body mass index 30+ - obesity 07-19-2020 Chronic Other screening for suspected conditions (not mental disorders or infectious disease) (17 sources) Ultrasound scan abnormal; Translations: [Abnormal findings on diagnostic imaging of other specified body structures] 11-18-2023 Chronic Other screening for suspected conditions (not mental disorders or infectious disease) (2 sources) Raised prostate specific antigen 01-10-2020 Episodic Other skin disorders (18 sources) Finding of head and neck region; Translations: [Localized swelling, mass and lump, head] 11-13-2023 Episodic Other skin disorders (12 sources) Localized swelling, mass and lump, head; Translations: [Swelling, mass, or lump in head and neck] 11-13-2023 Episodic Other upper respiratory infections (20 sources) Maxillary sinusitis; Translations: [Chronic maxillary sinusitis] 11-13-2023 Chronic Residual codes; unclassified (4 sources) Obstructive sleep apnea (adult) (pediatric); Translations: [OBSTRUCTIVE SLEEP APNEA] Onset: 08-14-19 Chronic Residual codes; unclassified (1 source) Family history of malignant neoplasm of prostate; Translations: [FAMILY HX MALIG NEOPLASM PROSTATE] Onset: 07-19-20 Episodic Residual codes; unclassified (1 source) Edema, unspecified; Translations: [EDEMA UNSPECIFIED] Onset: 05-12-20 Episodic Residual codes; unclassified (2 sources) Family history of cancer; Translations: [Family history of malignant neoplasm of prostate] Onset: 08-09-19 Episodic Residual codes; unclassified (2 sources) Family history of prostate cancer 10-08-2019 Episodic Residual codes; unclassified (12 sources) Acute insomnia; Translations: [Insomnia, unspecified] 01-12-2024 Episodic Residual codes; unclassified (18 sources) Insomnia, unspecified; Translations: [Insomnia, unspecified] Onset: 03-08-20 24 01-12-2024 Episodic Screening and history of mental health and substance abuse codes (2 sources) Ex-smoker 10-08-2019 Episodic Unclassified (1 source) CONTACT W/AND (SUSP) EXPOS COVID-19; Translations: [CONTACT W/AND (SUSP) EXPOS COVID-19] Onset: 03-19-20 Unclassified (2 sources) Drug therapy finding 10-08-2019 Results Test Name Value Interpretation Reference Range Facility Alanine aminotransferase [En zymatic activity/volume] in Serum or PlasmaOrdered By: Karly Nielsen on 03-01-2024 ALT [Catalytic activity/Vol] 60 U/L High 7-52 [facility] Comment on above: Performed By: #### C BC, CMP, MG ####[facility] [id number] [facility] Albumin [Mass/volume] in Ser um or Plasma by Bromocresol green (BCG) dye binding methoOrdered By: Karly Nielsen on 03-01-2024 Albumin BCG dye [Mass/Vol] 4.4 g/dL 3.5-5.7 [facility] Alkaline phosphatase [Enzyma tic activity/volume] in Serum or PlasmaOrdered By: Karly Nielsen on 03-01-2024 ALP [Catalytic activity/Vol] 63 U/L 34-104 [facility] Comment on above: Performed By: #### C BC, CMP, MG ####[facility] [id number] Aspartate aminotransferase [ Enzymatic activity/volume] in Serum or PlasmaOrdered By: acosta Nielsen on 03-01-2024 AST [Catalytic activity/Vol] 32 U/L 13-39 [facility] Comment on above: Performed By: #### C BC, CMP, MG ####[address] Automated basophil %Ordered By: acosta Nielsen on 03-01-2024 Basophils/100 WBC (Bld) 0.3 % . [facility] Comment on above: Performed By: #### C BC, CMP, MG #### [address] Automated basophil countOrde red By: acosta Nielsen on 03-01-2024 Basophils (Bld) [#/Vol] 0.0 10*3/uL 0.0-0.2 [facility] Comment on above: Result Comment: PERF ORMED BY: [place] [address] PATHOLOGIST SH[employer] W[employer]ER CHANDAN WINSTON M.D. Performed By: #### C BC, CMP, MG #### [facility] [address] [place] [address] Automated blood monocyte cou ntOrdered By: acosta Nielsen on 03-01-2024 Monocytes (Bld) [#/Vol] 0.7 10*3/uL 0.0-0.8 [facility] Comment on above: Performed By: #### C BC, CMP, MG #### [address] Automated eosinophil %Ordere d By: acosta Nielsen on 03-01-2024 Eosinophils/100 WBC (Bld) 0.8 % . [facility] Comment on above: Performed By: #### C BC, CMP, MG #### [facility] [address] Automated eosinophil countOr dered By: Karly Nielsen on 03-01-2024 Eosinophils (Bld) [#/Vol] 0.0 10*3/uL 0.0-0.45 [facility] Comment on above: Performed By: #### C BC, CMP, MG #### [facility] [address] Automated monocyte %Ordered By: acosta Nielsen on 03-01-2024 Monocytes/100 WBC (Bld) 12.7 % . [facility] Comment on above: Performed By: #### C BC, CMP, MG #### [facility] [address] Automated neutrophil %Ordere d By: Karly Nielsen on 03-01-2024 Neutrophils/100 WBC (Bld) 77.9 % . [facility] Comment on above: Performed By: #### C BC, CMP, MG #### [facility] [address] Bilirubin.total [Mass/volume ] in Serum or PlasmaOrdered By: Karly Nielsen on 03-01-2024 Bilirubin [Mass/Vol] 0.7 mg/dL 0.3-1.0 [facility] Comment on above: Performed By: #### C BC, CMP, MG ####[facility] [id number] Calcium [Mass/volume] in Ser um or PlasmaOrdered By: acosta Nielsen on 03-01-2024 Calcium [Mass/Vol] 9.8 mg/dL 8.6-10.3 [facility] Comment on above: Performed By: #### C BC, CMP, MG ####[facility] [id number] Carbon dioxide, total [Moles /volume] in Serum or PlasmaOrdered By: Karly Garcia on 03-01-2024 CO2 [Moles/Vol] 29.0 mmol/L 21.0-31.0 [facility] Comment on above: Performed By: #### C BC, CMP, MG ####[address] Chloride [Moles/volume] in S ray or PlasmaOrdered By: acosta Nielsen on 03-01-2024 Chloride [Moles/Vol] 96 mmol/L Low 98-107 [facility] Comment on above: Performed By: #### C BC, CMP, MG ####[address] Complete Blood Count Auto Di ffon 03-01-2024 Mean Corpuscular HGB Conc 36.2 g/dL High 32.5-35.6 [facility] Comment on above: Performed By: #### C BC, CMP, MG #### [facility] [address] NRBC% 0.1 /100{WBC} Normal 0-0.5 [facility] Comment on above: Performed By: #### C BC, CMP, MG #### [address] Comprehensive Metabolic Pane darren 03-01-2024 Albumin [Mass/Vol] 4.4 g/dL Normal 3.5-5.7 [facility] Comment on above: Performed By: #### C BC, CMP, MG ####[address] Creatinine Clr Calc Pharmacy 70.78 Normal [facility] Comment on above: Performed By: #### C BC, CMP, MG ####[address] GFR/1.73 sq M.predicted MDRD (S/P/Bld) [Vol rate/Area] 59.129 mL/min/{1.73_m2} Normal [facility] Comment on above: Performed By: #### C BC, CMP, MG ####[place] [id number] [address] Creatinine [Mass/volume] in Serum or PlasmaOrdered By: Karly Nielsen on 03-01-2024 Creatinine [Mass/Vol] 1.39 mg/dL High 0.70-1.30 [facility] Comment on above: Performed By: #### C BC, CMP, MG ####[place] [id number] [address] Erythrocyte distribution wid th [Ratio] by Automated countOrdered By: acosta Garcia on 03-01-2024 Erythrocyte distribution width (RBC) [Ratio] 11.8 % Low 12.0-14.8 [facility] Comment on above: Performed By: #### C BC, CMP, MG #### [address] Erythrocytes [#/volume] in B lood by Automated countOrdered By: Karly Nielsen on 03-01-2024 RBC (Bld) [#/Vol] 3.82 10*6/uL Low 3.90-5.60 [facility] Comment on above: Performed By: #### C BC, CMP, MG #### [address] Glucose [Mass/volume] in Ser um or PlasmaOrdered By: Karly Nielsen on 03-01-2024 Glucose [Mass/Vol] 109 mg/dL High 70-100 [facility] Comment on above: ADA recommended refe rence rangeRandom Glucose Reference Range is dependent on time and content of last meal. Glucose of more than 200 mg/dL in a nonstressed, ambulatory subject supports the diagnosis of Diabetes Mellitus. Result Comment: [place] Glucose Reference Range is dependent on time and content of last meal. Glucose of more than 200 mg/dL in a nonstressed, ambulatory subject supports the diagnosis of Diabetes Mellitus. ADA recommended reference range Performed By: #### C BC, CMP, MG ####[address] Hematocrit [Volume Fraction] of Blood by Automated countOrdered By: acosta Garcia on 03-01-2024 Hematocrit (Bld) [Volume fraction] 35.4 % Low 38.8-50.0 [facility] Comment on above: Performed By: #### C BC, CMP, MG #### [facility] [address] [place] [address] Hemoglobin [Mass/volume] in BloodOrdered By: acosta Nielsen on 03-01-2024 Hemoglobin (Bld) [Mass/Vol] 12.8 g/dL Low 13.0-17.0 [facility] Comment on above: Performed By: #### C BC, CMP, MG #### [facility] [address] [place] [address] Leukocytes [#/volume] correc evelyn for nucleated erythrocytes in Blood by Automated counOrdered By: acosta Nielsen on 03-01-2024 WBC corrected for nucl RBC Auto (Bld) [#/Vol] 5.3 10*3/uL 4.1-10.5 [facility] Leukocytes [#/volume] in Blo od by Automated countOrdered By: acosta Nielsen on 03-01-2024 WBC (Bld) [#/Vol] 5.3 10*3/uL 4.1-10.5 [facility] Comment on above: Performed By: #### C BC, CMP, MG #### [facility] [address] [place] [address] [place] Lymphocytes [#/volume] in Bl ood by Automated countOrdered By: acosta Nielsen on 03-01-2024 Lymphocytes (Bld) [#/Vol] 0.4 10*3/uL Low 1.00-4.8 [facility] Comment on above: Performed By: #### C BC, CMP, MG #### [facility] [address] [place] [address] [place] Lymphocytes/100 leukocytes i n Blood by Automated countOrdered By: acosta Nielsen on 03-01-2024 Lymphocytes/100 WBC (Bld) 8.3 % . [facility] Comment on above: Performed By: #### C BC, CMP, MG #### [facility] [address] MCH [Entitic mass] by Automa evelyn countOrdered By: Karly Nielsen on 03-01-2024 MCH (RBC) [Entitic mass] 33.6 pg 27.5-35.2 [facility] Comment on above: Performed By: #### C BC, CMP, MG #### [facility] [address] MCHC Auto (RBC) [Mass/Vol]Or dered By: Karly Nielsen on 03-01-2024 MCHC (RBC) [Mass/Vol] 36.2 g/dL High 32.5-35.6 [facility] MCV [Entitic volume] by Auto mated countOrdered By: Karly Nielsen on 03-01-2024 MCV (RBC) [Entitic vol] 92.8 fL 83.5-101 [facility] Comment on above: Performed By: #### C BC, CMP, MG #### [facility] [address] Magnesium [Mass/volume] in S ray or PlasmaOrdered By: Karly Nielsen on 03-01-2024 Magnesium [Mass/Vol] 1.7 mg/dL Low 1.9-2.7 [facility] Comment on above: Result Comment: PERF ORMED BY: [facility] [address] [facility] [place] [address] PATHOLOGIST SHIP WIRER CHANDAN WINSTON M.D. Performed By: #### C BC, CMP, MG ####[facility] [id number] Neutrophils [#/volume] in Bl ood by Automated countOrdered By: Karly Nielsen on 03-01-2024 Neutrophils (Bld) [#/Vol] 4.1 10*3/uL 1.8-7.7 [facility] Comment on above: Performed By: #### C BC, CMP, MG #### [facility] [address] No Panel InformationOrdered By: Karly Nielsen on 03-01-2024 Estimated GFR (CKD-EPI) 59.129 mL/Min [facility] Creatinine Clearance (Chem 70.78 [facility] Nucleated erythrocytes [Pres ence] in Blood by Automated countOrdered By: acosta Nielsen on 03-01-2024 Nucleated RBC Auto Ql (Bld) 0.1 /100{WBC} 0-0.5 [facility] Platelet mean volume [Entiti c volume] in Blood by Automated countOrdered By: acosta Nielsen on 03-01-2024 Platelet mean volume (Bld) [Entitic vol] 6.7 fL 6.6-10.1 [facility] Comment on above: Performed By: #### C BC, CMP, MG #### [facility] [address] [place] [address] Platelets [#/volume] in Bloo d by Automated countOrdered By: acosta Nielsen on 03-01-2024 Platelets (Bld) [#/Vol] 187 10*3/uL 150-450 [facility] Comment on above: Performed By: #### C BC, CMP, MG #### [facility] [address] [place] [address] Potassium [Moles/volume] in Serum or PlasmaOrdered By: acosta Nielsen on 03-01-2024 Potassium [Moles/Vol] 3.5 mmol/L 3.5-5.1 [facility] Comment on above: Performed By: #### C BC, CMP, MG ####[address] Protein [Mass/volume] in Ser um or PlasmaOrdered By: acosta Nielsen on 03-01-2024 Protein [Mass/Vol] 7.7 g/dL 6.4-8.9 [facility] Comment on above: Performed By: #### C BC, CMP, MG ####[address] Serum globulin measurement b y calculation (mass/volume)Ordered By: acosta Garcia on 03-01-2024 Globulin (S) [Mass/Vol] 3.3 g/dL [facility] Comment on above: Performed By: #### C BC, CMP, MG ####[place] [id number] [address] Serum or plasma albumin/glob ulin mass ratioOrdered By: acosta Nielsen on 03-01-2024 Albumin/Globulin [Mass ratio] 1.3 {ratio} [facility] Comment on above: Performed By: #### C BC, CMP, MG ####[place] [id number] [address] Serum or plasma anion gap de terminationOrdered By: acosta Nielsen on 03-01-2024 Anion gap [Moles/Vol] 13.5 mmol/L 6.0-15.0 [facility] Comment on above: Performed By: #### C BC, CMP, MG ####[address] Sodium [Moles/volume] in Ser um or PlasmaOrdered By: acosta Nielsen on 03-01-2024 Sodium [Moles/Vol] 135 mmol/L Low 136-145 [facility] Comment on above: Performed By: #### C BC, CMP, MG ####[address] Urea nitrogen [Mass/volume] in Serum or PlasmaOrdered By: acosta Nielsen on 03-01-2024 Urea nitrogen [Mass/Vol] 31 mg/dL High 7-25 [facility] Comment on above: Performed By: #### C BC, CMP, MG ####[place] [id number] [address] Alanine aminotransferase [En zymatic activity/volume] in Serum or PlasmaOrdered By: acosta Nielsen on 02-23-2024 ALT [Catalytic activity/Vol] 35 U/L Normal 7- [facility] Comment on above: Performed By: #### C BC, CMP, MG ####[address] Albumin [Mass/volume] in Ser um or Plasma by Bromocresol green (BCG) dye binding methoOrdered By: [facility] MicahRadha on 02-23-2024 Albumin BCG dye [Mass/Vol] 4.2 g/dL 3.5-5.7 [facility] Alkaline phosphatase [Enzyma tic activity/volume] in Serum or PlasmaOrdered By: [facility] 02-[facility]-2024 ALP [Catalytic activity/Vol] 49 U/L Normal 34-104 [facility] Comment on above: Performed By: #### C BC, CMP, MG ####[address] Aspartate aminotransferase [ Enzymatic activity/volume] in Serum or PlasmaOrdered By: [facility] on 02-23-2024 AST [Catalytic activity/Vol] 24 U/L Normal 13-39 [facility] Comment on above: Performed By: #### C BC, CMP, MG ####[address] Automated basophil %Ordered By: [facility] MicahRadha on 02-23-2024 Basophils/100 WBC (Bld) 0.5 % Normal . [facility] Comment on above: Performed By: #### C BC, CMP, MG ####[address] Automated basophil countOrde red By: [facility] on 02-23-2024 Basophils (Bld) [#/Vol] 0.0 10*3/uL Normal 0.0-0.2 [facility] Comment on above: Result Comment: PERF ORMED BY: [facility] [address] [place] [address] PATHOLOGIST SHIP WIRER CHANDAN WINSTON M.D. Performed By: #### C BC, CMP, MG ####[address] Automated blood monocyte cou ntOrdered By: [facility] Micah-Tamannamicheal on 02-23-2024 Monocytes (Bld) [#/Vol] 0.6 10*3/uL Normal 0.0-0.8 [facility] Comment on above: Performed By: #### C BC, CMP, MG ####[address] Automated eosinophil %Ordere d By: [facility] Micah-Carmenandria on 02-23-2024 Eosinophils/100 WBC (Bld) 1.6 % Normal . [facility] Comment on above: Performed By: #### C BC, CMP, MG ####[address] Automated eosinophil countOr dered By: [facility] -Sepandria on 02-23-2024 Eosinophils (Bld) [#/Vol] 0.1 10*3/uL Normal 0.0-0.45 [facility] Comment on above: Performed By: #### C BC, CMP, MG ####[address] Automated monocyte %Ordered By: [facility] Micah-Tamannamicheal on 02-23-2024 Monocytes/100 WBC (Bld) 11.3 % Normal . [facility] Comment on above: Performed By: #### C BC, CMP, MG ####[address] Automated neutrophil %Ordere d By: [facility] MicahTamannamicheal on 02-23-2024 Neutrophils/100 WBC (Bld) 76.3 % Normal . [facility] Comment on above: Performed By: #### C BC, CMP, MG ####[address] Bilirubin.total [Mass/volume ] in Serum or PlasmaOrdered By: acosta Heck-Tamannamicheal on 02-23-2024 Bilirubin [Mass/Vol] 0.6 mg/dL Normal 0.3-1.0 [facility] Comment on above: Performed By: #### C BC, CMP, MG ####[address] Calcium [Mass/volume] in Ser um or PlasmaOrdered By: acosta Nielsen on 02-23-2024 Calcium [Mass/Vol] 9.6 mg/dL Normal 8.6-10.3 [facility] Comment on above: Performed By: #### C BC, CMP, MG ####[address] Carbon dioxide, total [Moles /volume] in Serum or PlasmaOrdered By: acosta [facility] Radha on 02-23-2024 CO2 [Moles/Vol] 29.7 mmol/L Normal 21.0-31.0 [facility] Comment on above: Performed By: #### C BC, CMP, MG ####[address] Chloride [Moles/volume] in S ray or PlasmaOrdered By: acosta [facility] 02-23-2024 Chloride [Moles/Vol] 99 mmol/L Normal 98-107 [facility] Comment on above: Performed By: #### C BC, CMP, MG ####[address] Complete Blood Count Auto Di ffon 02-23-2024 Mean Corpuscular HGB Conc 35.3 g/dL Normal 32.5-35.6 [facility] Comment on above: Performed By: #### C BC, CMP, MG ####[address] NRBC% 0.1 /100{WBC} Normal 0-0.5 [facility] Comment on above: Performed By: #### C BC, CMP, MG ####[address] Comprehensive Metabolic Pane darren 02-23-2024 Albumin [Mass/Vol] 4.2 g/dL Normal 3.5-5.7 [facility] Comment on above: Performed By: #### C BC, CMP, MG ####[place] [id number] [address] Creatinine Clr Calc Pharmacy 94.16 Normal [facility] Comment on above: Performed By: #### C BC, CMP, MG ####[address] GFR/1.73 sq M.predicted MDRD (S/P/Bld) [Vol rate/Area] mL/min/{1.73_m2} Normal [facility] Comment on above: Performed By: #### C BC, CMP, MG ####[address] Creatinine [Mass/volume] in Serum or PlasmaOrdered By: Karly Nielsen on 02-23-2024 Creatinine [Mass/Vol] 1.05 mg/dL Normal 0.70-1.30 [facility] Comment on above: Performed By: #### C BC, CMP, MG ####[address] Erythrocyte distribution wid th [Ratio] by Automated countOrdered By: acosta Garcia on 02-23-2024 Erythrocyte distribution width (RBC) [Ratio] 12.2 % Normal 12.0-14.8 [facility] Comment on above: Performed By: #### C BC, CMP, MG ####[address] Erythrocytes [#/volume] in B lood by Automated countOrdered By: Karly Nielsen on 02-23-2024 RBC (Bld) [#/Vol] 4.01 10*6/uL Normal 3.90-5.60 [facility] Comment on above: Performed By: #### C BC, CMP, MG ####[address] Glucose [Mass/volume] in Ser um or PlasmaOrdered By: Karly Nielsen on 02-23-2024 Glucose [Mass/Vol] 107 mg/dL High 70-100 [facility] Comment on above: ADA recommended refe rence rangeRandom Glucose Reference Range is dependent on time and content of last meal. Glucose of more than 200 mg/dL in a nonstressed, ambulatory subject supports the diagnosis of Diabetes Mellitus. Result Comment: [place] Glucose Reference Range is dependent on time and content of last meal. Glucose of more than 200 mg/dL in a nonstressed, ambulatory subject supports the diagnosis of Diabetes Mellitus. ADA recommended reference range Performed By: #### C BC, CMP, MG ####[address] Hematocrit [Volume Fraction] of Blood by Automated countOrdered By: acosta Garcia on 02-23-2024 Hematocrit (Bld) [Volume fraction] 37.5 % Low 38.8-50.0 [facility] Comment on above: Performed By: #### C OMID CMP, MG ####[address] Hemoglobin [Mass/volume] in BloodOrdered By: Karly Nielsen on 02-23-2024 Hemoglobin (Bld) [Mass/Vol] 13.3 g/dL Normal 13.0-17.0 [facility] Comment on above: Performed By: #### C UBALDO ANNE, MG ####[address] Leukocytes [#/volume] correc evelyn for nucleated erythrocytes in Blood by Automated counOrdered By: Karly Nielsen on 02-23-2024 WBC corrected for nucl RBC Auto (Bld) [#/Vol] 5.7 10*3/uL 4.1-10.5 [facility] Leukocytes [#/volume] in Blo od by Automated countOrdered By: acosta Nielsen on 02-23-2024 WBC (Bld) [#/Vol] 5.7 10*3/uL Normal 4.1-10.5 [facility] Comment on above: Performed By: #### C BC, CMP, MG ####[address] Lymphocytes [#/volume] in Bl ood by Automated countOrdered By: Karly Nielsen on 02-23-2024 Lymphocytes (Bld) [#/Vol] 0.6 10*3/uL Low 1.00-4.8 [facility] Comment on above: Performed By: #### C BC, CMP, MG ####[place] [id number] [address] Lymphocytes/100 leukocytes i n Blood by Automated countOrdered By: acosta Nielsen on 02-23-2024 Lymphocytes/100 WBC (Bld) 10.3 % Normal . [facility] Comment on above: Performed By: #### C BC, CMP, MG ####[place] [id number] [address] MCH [Entitic mass] by Automa evelyn countOrdered By: acosta Nielsen on 02-23-2024 MCH (RBC) [Entitic mass] 33.1 pg Normal 27.5-35.2 [facility] Comment on above: Performed By: #### C BC, CMP, MG ####[place] [id number] [address] MCHC Auto (RBC) [Mass/Vol]Or dered By: Karly Nielsen on 02-23-2024 MCHC (RBC) [Mass/Vol] 35.3 g/dL 32.5-35.6 [facility] MCV [Entitic volume] by Auto mated countOrdered By: acosta Nielsen on 02-23-2024 MCV (RBC) [Entitic vol] 93.6 fL Normal 83.5-101 F [facility] Comment on above: Performed By: #### C BC, CMP, MG ####[address] Magnesium [Mass/volume] in S ray or PlasmaOrdered By: acosta Nielsen on 02-23-2024 Magnesium [Mass/Vol] 1.5 mg/dL Low 1.9-2.7 [facility] Comment on above: Result Comment: PERF ORMED BY: [facility] [address] [place] [id number] PATHOLOGIST SHIP WIRER CHANDAN WINSTON M.D. Performed By: #### C BC, CMP, MG ####[place] [id number] [address] Neutrophils [#/volume] in Bl ood by Automated countOrdered By: acosta Nielsen on 02-23-2024 Neutrophils (Bld) [#/Vol] 4.4 10*3/uL Normal 1.8-7.7 [facility] Comment on above: Performed By: #### C BC, CMP, MG ####[place] [id number] [address] No Panel InformationOrdered By: Karly Nielsen on 02-23-2024 Estimated GFR (CKD-EPI) > 60.0 mL/Min [facility] Creatinine Clearance (Chem 94.16 [facility] Nucleated erythrocytes [Pres ence] in Blood by Automated countOrdered By: Karly Nielsen on 02-23-2024 Nucleated RBC Auto Ql (Bld) 0.1 /100{WBC} 0-0.5 [facility] Platelet mean volume [Entiti c volume] in Blood by Automated countOrdered By: Karly Nielsen on 02-23-2024 Platelet mean volume (Bld) [Entitic vol] 7.1 fL Normal 6.6-10.1 [facility] Comment on above: Performed By: #### C BC, CMP, MG ####[address] Platelets [#/volume] in Bloo d by Automated countOrdered By: acosta Nielsen on 02-23-2024 Platelets (Bld) [#/Vol] 148 10*3/uL Low 150-450 [facility] Comment on above: Performed By: #### C BC, CMP, MG ####[place] [id number] [address] Potassium [Moles/volume] in Serum or PlasmaOrdered By: acosta Nielsen on 02-23-2024 Potassium [Moles/Vol] 4.0 mmol/L Normal 3.5-5.1 [facility] Comment on above: Performed By: #### C BC, CMP, MG ####[place] [id number] [facility] Protein [Mass/volume] in Ser um or PlasmaOrdered By: [facility] Morales on 02-23-2024 Protein [Mass/Vol] 7.2 g/dL Normal 6.4-8.9 [facility] Comment on above: Performed By: #### C BC, CMP, MG ####[place] [id number] [facility] Serum globulin measurement b y calculation (mass/volume)Ordered By: [facility] Nicole Garcia on 02-23-2024 Globulin (S) [Mass/Vol] 3.0 g/dL Normal [facility] Comment on above: Performed By: #### C BC, CMP, MG ####[address] Serum or plasma albumin/glob ulin mass ratioOrdered By: [facility] MicahRadha on 02-23-2024 Albumin/Globulin [Mass ratio] 1.4 {ratio} Normal [facility] Comment on above: Performed By: #### C BC, CMP, MG ####[place] [id number] [facility] Serum or plasma anion gap de terminationOrdered By: acosta Nielsen on 02-23-2024 Anion gap [Moles/Vol] 11.3 mmol/L Normal 6.0-15.0 [facility] Comment on above: Performed By: #### C BC, CMP, MG ####[place] [id number] [facility] Sodium [Moles/volume] in Ser um or PlasmaOrdered By: [facility] on 02-23-2024 Sodium [Moles/Vol] 136 mmol/L Normal 136-145 [facility] Comment on above: Performed By: #### C BC, CMP, MG ####[place] [id number] [place] Urea nitrogen [Mass/volume] in Serum or PlasmaOrdered By: Karly Nielsen on 02-23-2024 Urea nitrogen [Mass/Vol] 17 mg/dL Normal 7-25 [facility] Comment on above: Performed By: #### C BC, CMP, MG ####[facility] [address] Complete Blood Count Auto Di ffon 02-17-2024 Basophils (Bld) [#/Vol] 0.0 10*3/uL Normal 0.0-0.2 [facility] Comment on above: Result Comment: PERF ORMED BY: [place] [address] PATHOLOGIST SHIP WIRER CHANDAN WINSTON M.D. Performed By: #### C BC #### [address] Basophils/100 WBC (Bld) 0.8 % Normal . [facility] Comment on above: Performed By: #### C BC #### [address] Eosinophils (Bld) [#/Vol] 0.1 10*3/uL Normal 0.0-0.45 [facility] Comment on above: Performed By: #### C BC #### [address] Eosinophils/100 WBC (Bld) 2.2 % Normal . [facility] Comment on above: Performed By: #### C BC #### [address] Erythrocyte distribution width (RBC) [Ratio] 12.0 % Normal 12.0-14.8 [facility] Comment on above: Performed By: #### C BC #### [address] Hematocrit (Bld) [Volume fraction] 39.3 % Normal 38.8-50.0 [facility] Comment on above: Performed By: #### C BC #### [address] [place] [address] [place] Hemoglobin (Bld) [Mass/Vol] 13.9 g/dL Normal 13.0-17.0 [facility] Comment on above: Performed By: #### C BC #### [address] Lymphocytes (Bld) [#/Vol] 0.7 10*3/uL Low 1.00-4.8 [facility] Comment on above: Performed By: #### C BC #### [address] Lymphocytes/100 WBC (Bld) 11.0 % Normal . [facility] Comment on above: Performed By: #### C BC #### [address] MCH (RBC) [Entitic mass] 33.4 pg Normal 27.5-35.2 [facility] Comment on above: Performed By: #### C BC #### [address] MCV (RBC) [Entitic vol] 94.3 fL Normal 83.5-101 T [facility] Comment on above: Performed By: #### C BC #### [address] Mean Corpuscular HGB Conc 35.4 g/dL Normal 32.5-35.6 [facility] Comment on above: Performed By: #### C BC #### [address] Monocytes (Bld) [#/Vol] 0.7 10*3/uL Normal 0.0-0.8 [facility] Comment on above: Performed By: #### C BC #### [address] Monocytes/100 WBC (Bld) 11.5 % Normal . [facility] Comment on above: Performed By: #### C BC #### [address] Neutrophils (Bld) [#/Vol] 4.8 10*3/uL Normal 1.8-7.7 [facility] Comment on above: Performed By: #### C BC #### [facility] [address] Neutrophils/100 WBC (Bld) 74.5 % Normal . [facility] Comment on above: Performed By: #### C BC #### [facility] [address] NRBC% 0.1 /100{WBC} Normal 0-0.5 [facility] Comment on above: Performed By: #### C BC #### [facility] [address] Platelet mean volume (Bld) [Entitic vol] 7.1 fL Normal 6.6-10.1 [facility] Comment on above: Performed By: #### C BC #### [facility] [address] Platelets (Bld) [#/Vol] 209 10*3/uL Normal 150-450 [facility] Comment on above: Performed By: #### C BC #### [facility] [address] RBC (Bld) [#/Vol] 4.17 10*6/uL Normal 3.90-5.60 [facility] Comment on above: Performed By: #### C BC #### [facility] [address] WBC (Bld) [#/Vol] 6.4 10*3/uL Normal 4.1-10.5 [facility] Comment on above: Performed By: #### C BC #### [facility] [address] Comprehensive Metabolic Pane darren 02-17-2024 Albumin [Mass/Vol] 4.2 g/dL Normal 3.5-5.7 [facility] Comment on above: Performed By: #### C MP, MG ####[facility] Albumin/Globulin [Mass ratio] 1.4 {ratio} Normal [facility] Comment on above: Performed By: #### C MP, MG ####[place] [id number] [facility] ALP [Catalytic activity/Vol] 54 U/L Normal 34-104 [facility] Comment on above: Performed By: #### C MP, MG ####[place] [id number] [facility] ALT [Catalytic activity/Vol] 30 U/L Normal 7-52 [facility] Comment on above: Performed By: #### C MP, MG ####[place] [id number] [facility] Anion gap [Moles/Vol] 8.5 mmol/L Normal 6.0-15.0 [facility] [facility] Comment on above: Performed By: #### C MP, MG ####[address] AST [Catalytic activity/Vol] 21 U/L Normal 13-39 [facility] Comment on above: Performed By: #### C MP, MG ####[place] [id number] [facility] Bilirubin [Mass/Vol] 0.6 mg/dL Normal 0.3-1.0 [facility] Comment on above: Performed By: #### C MP, MG ####[place] [id number] [facility] Calcium [Mass/Vol] 9.6 mg/dL Normal 8.6-10.3 [facility] Comment on above: Performed By: #### C MP, MG ####[place] [id number] [facility] Chloride [Moles/Vol] 97 mmol/L Low 98-107 [facility] Comment on above: Performed By: #### C MP, MG ####[place] [id number] [facility] CO2 [Moles/Vol] 30.2 mmol/L Normal 21.0-31.0 [facility] Comment on above: Performed By: #### C MP, MG ####[place] [id number] [facility] Creatinine [Mass/Vol] 1.17 mg/dL Normal 0.70-1.30 [facility] Comment on above: Performed By: #### C MP, MG ####[address] [address] [facility] Creatinine Clr Calc Pharmacy 84.45 Normal [facility] Comment on above: Performed By: #### C MP, MG ####[place] [id number] [place] GFR/1.73 sq M.predicted MDRD (S/P/Bld) [Vol rate/Area] mL/min/{1.73_m2} Normal [facility] Comment on above: Performed By: #### C MP, MG ####[address] Globulin (S) [Mass/Vol] 3.1 g/dL Normal T he [facility] Comment on above: Performed By: #### C MP, MG ####[address] Glucose [Mass/Vol] 119 mg/dL High 70-100 [facility] Comment on above: Result Comment: [place] Glucose Reference Range is dependent on time and content of last meal. Glucose of more than 200 mg/dL in a nonstressed, ambulatory subject supports the diagnosis of Diabetes Mellitus. ADA recommended reference range Performed By: #### C MP, MG ####[place] [id number] [facility] Potassium [Moles/Vol] 3.7 mmol/L Normal 3.5-5.1 [facility] Comment on above: Performed By: #### C MP, MG ####[place] [id number] [facility] Protein [Mass/Vol] 7.3 g/dL Normal 6.4-8.9 [facility] Comment on above: Performed By: #### C MP, MG ####[address] Sodium [Moles/Vol] 132 mmol/L Low 136-145 [facility] Comment on above: Performed By: #### C MP, MG ####[place] [id number] [address] Urea nitrogen [Mass/Vol] 19 mg/dL Normal 7-25 [facility] Comment on above: Performed By: #### C MP, MG ####[address] Magnesiumon 02-17-2024 Magnesium [Mass/Vol] 1.7 mg/dL Low 1.9-2.7 [facility] Comment on above: Result Comment: PERF ORMED BY: [place] [address] PATHOLOGIST SHIP WIRER CHANDAN WINSTON M.D. Performed By: #### M G, CBC, CMP #### [address] Alanine aminotransferase [En zymatic activity/volume] in Serum or PlasmaOrdered By: Karly Nielsen on 02-09-2024 ALT [Catalytic activity/Vol] 31 U/L Normal 7-52 [facility] Comment on above: Performed By: #### C BC, CMP, MG ####[address] Albumin [Mass/volume] in Ser um or Plasma by Bromocresol green (BCG) dye binding methoOrdered By: Karly Nielsen on 02-09-2024 Albumin BCG dye [Mass/Vol] 4.3 g/dL 3.5-5.7 [facility] Alkaline phosphatase [Enzyma tic activity/volume] in Serum or PlasmaOrdered By: Karly Nielsen on 02-09-2024 ALP [Catalytic activity/Vol] 55 U/L Normal 34-104 [facility] Comment on above: Performed By: #### C BC, CMP, MG ####[address] Aspartate aminotransferase [ Enzymatic activity/volume] in Serum or PlasmaOrdered By: acosta Micah-Tamannamicheal on 02-09-2024 AST [Catalytic activity/Vol] 21 U/L Normal 13-39 [facility] Comment on above: Performed By: #### C BC, CMP, MG ####[place] [phone] Automated basophil %Ordered By: acosta Heck-Tamannamicheal on 02-09-2024 Basophils/100 WBC (Bld) 0.6 % Normal . [facility] Comment on above: Performed By: #### C BC, CMP, MG ####[place] [phone] Automated basophil countOrde red By: acosta Heck-Tamannamicheal on 02-09-2024 Basophils (Bld) [#/Vol] 0.1 10*3/uL Normal 0.0-0.2 [facility] Comment on above: Result Comment: PERF ORMED BY: [facility] [address] [facility] [place] [address] PATHOLOGIST SH[employer] WIRER CHANDAN WINSTON M.D. Performed By: #### C BC, CMP, MG ####[address] Automated blood monocyte cou ntOrdered By: acosta MicahRositaTamannamicheal on 02-09-2024 Monocytes (Bld) [#/Vol] 0.9 10*3/uL High 0.0-0.8 [facility] Comment on above: Performed By: #### C BC, CMP, MG ####[address] Automated eosinophil %Ordere d By: acosta Micah-Tamannamicheal on 02-09-2024 Eosinophils/100 WBC (Bld) 2.1 % Normal . [facility] Comment on above: Performed By: #### C BC, CMP, MG ####[address] Automated eosinophil countOr dered By: acosta MicahRositaTamannamicheal on 02-09-2024 Eosinophils (Bld) [#/Vol] 0.2 10*3/uL Normal 0.0-0.45 [facility] Comment on above: Performed By: #### C BC, CMP, MG ####[address] Automated monocyte %Ordered By: [facility] MicahRadha on 02-09-2024 Monocytes/100 WBC (Bld) 10.3 % Normal . [facility] Comment on above: Performed By: #### C BC, CMP, MG ####[address] Automated neutrophil %Ordere d By: [facility] 02-09-2024 Neutrophils/100 WBC (Bld) 77.6 % Normal . [facility] Comment on above: Performed By: #### C BC, CMP, MG ####[address] Bilirubin.total [Mass/volume ] in Serum or PlasmaOrdered By: [facility] on 02-09-2024 Bilirubin [Mass/Vol] 0.7 mg/dL Normal 0.3-1.0 [facility] Comment on above: Performed By: #### C BC, CMP, MG ####[address] Calcium [Mass/volume] in Ser um or PlasmaOrdered By: [facility] on 02-09-2024 Calcium [Mass/Vol] 9.8 mg/dL Normal 8.6-10.3 [facility] Comment on above: Performed By: #### C BC, CMP, MG ####[address] Carbon dioxide, total [Moles /volume] in Serum or PlasmaOrdered By: [facility]iche[facility] on 02-09-2024 CO2 [Moles/Vol] 30.5 mmol/L Normal 21.0-31.0 [facility] Comment on above: Performed By: #### C BC, CMP, MG ####[address] [place] [address] [place] Chloride [Moles/volume] in S ray or PlasmaOrdered By: Karly Nielsen on 02-09-2024 Chloride [Moles/Vol] 98 mmol/L Normal 98-107 [facility] Comment on above: Performed By: #### C BC, CMP, MG ####[address] Complete Blood Count Auto Di ffon 02-09-2024 Mean Corpuscular HGB Conc 35.2 g/dL Normal 32.5-35.6 [facility] Comment on above: Performed By: #### C BC, CMP, MG ####[address] NRBC% 0.1 /100{WBC} Normal 0-0.5 [facility] Comment on above: Performed By: #### C BC, CMP, MG ####[address] Comprehensive Metabolic Pane darren 02-09-2024 Albumin [Mass/Vol] 4.3 g/dL Normal 3.5-5.7 [facility] Comment on above: Performed By: #### C BC, CMP, MG ####[address] Creatinine Clr Calc Pharmacy 105.09 Normal [facility] Comment on above: Performed By: #### C BC, CMP, MG ####[address] GFR/1.73 sq M.predicted MDRD (S/P/Bld) [Vol rate/Area] mL/min/{1.73_m2} Normal [facility] Comment on above: Performed By: #### C BC, CMP, MG ####[address] Creatinine [Mass/volume] in Serum or PlasmaOrdered By: Karly Nielsen on 02-09-2024 Creatinine [Mass/Vol] 0.96 mg/dL Normal 0.70-1.30 [facility] Comment on above: Performed By: #### C BC, CMP, MG ####[place] [id number] [place] [id number] [facility] Erythrocyte distribution wid th [Ratio] by Automated countOrdered By: Karly Garcia on 02-09-2024 Erythrocyte distribution width (RBC) [Ratio] 11.9 % Low 12.0-14.8 [facility] Comment on above: Performed By: #### C BC, CMP, MG ####[place] [id number] [place] [id number] [facility] Erythrocytes [#/volume] in B lood by Automated countOrdered By: Karly Nielsen on 02-09-2024 RBC (Bld) [#/Vol] 4.25 10*6/uL Normal 3.90-5.60 [facility] Comment on above: Performed By: #### C BC, CMP, MG ####[place] [id number] [facility] Glucose [Mass/volume] in Ser um or PlasmaOrdered By: Karly Nielsen on 02-09-2024 Glucose [Mass/Vol] 104 mg/dL High 70-100 [facility] Comment on above: ADA recommended refe rence rangeRandom Glucose Reference Range is dependent on time and content of last meal. Glucose of more than 200 mg/dL in a nonstressed, ambulatory subject supports the diagnosis of Diabetes Mellitus. Result Comment: [place] om Glucose Reference Range is dependent on time and content of last meal. Glucose of more than 200 mg/dL in a nonstressed, ambulatory subject supports the diagnosis of Diabetes Mellitus. ADA recommended reference range Performed By: #### C BC, CMP, MG ####[place] [id number] [facility] Hematocrit [Volume Fraction] of Blood by Automated countOrdered By: Karly Garcia on 02-09-2024 Hematocrit (Bld) [Volume fraction] 40.6 % Normal 38.8-50.0 [facility] Comment on above: Performed By: #### C BC, CMP, MG ####[address] Hemoglobin [Mass/volume] in BloodOrdered By: acosta Nielsen on 02-09-2024 Hemoglobin (Bld) [Mass/Vol] 14.3 g/dL Normal 13.0-17.0 [facility] Comment on above: Performed By: #### C BC, CMP, MG ####[address] Leukocytes [#/volume] correc evelyn for nucleated erythrocytes in Blood by Automated counOrdered By: acosta Nielsen on 02-09-2024 WBC corrected for nucl RBC Auto (Bld) [#/Vol] 8.9 10*3/uL 4.1-10.5 [facility] Leukocytes [#/volume] in Blo od by Automated countOrdered By: acosta Nielsen on 02-09-2024 WBC (Bld) [#/Vol] 8.9 10*3/uL Normal 4.1-10.5 [facility] Comment on above: Performed By: #### C BC, CMP, MG ####[address] Lymphocytes [#/volume] in Bl ood by Automated countOrdered By: acosta Nielsen on 02-09-2024 Lymphocytes (Bld) [#/Vol] 0.8 10*3/uL Low 1.00-4.8 [facility] Comment on above: Performed By: #### C BC, CMP, MG ####[address] Lymphocytes/100 leukocytes i n Blood by Automated countOrdered By: [facility] Morales on 02-09-2024 Lymphocytes/100 WBC (Bld) 9.4 % Normal . [facility] Comment on above: Performed By: #### C BC, CMP, MG ####[address] MCH [Entitic mass] by Automa evelyn countOrdered By: acosta Nielsen on 07-22-2024 MCH (RBC) [Entitic mass] 33.6 pg Normal 27.5-35.2 [facility] Comment on above: Performed By: #### C BC, CMP, MG ####[address] MCHC Auto (RBC) [Mass/Vol]Or dered By: K[place] Nielsen on 02-09-2024 MCHC (RBC) [Mass/Vol] 35.2 g/dL 32.5-35.6 [facility] MCV [Entitic volume] by Auto mated countOrdered By: acosta Nielsen on 02-09-2024 MCV (RBC) [Entitic vol] 95.6 fL Normal 83.5-101 [facility] Comment on above: Performed By: #### C BC, CMP, MG ####[address] Magnesium [Mass/volume] in S ray or PlasmaOrdered By: Karly Nielsen on 02-09-2024 Magnesium [Mass/Vol] 1.9 mg/dL Normal 1.9-2.7 [facility] Comment on above: Result Comment: PERF ORMED BY: [facility] [address] [place] [address] PATHOLOGIST SHIP WIRER CHANDAN WINSTON M.D. Performed By: #### C BC, CMP, MG ####[address] Neutrophils [#/volume] in Bl ood by Automated countOrdered By: acosta Nielsen on 02-09-2024 Neutrophils (Bld) [#/Vol] 6.9 10*3/uL Normal 1.8-7.7 [facility] Comment on above: Performed By: #### C BC, CMP, MG ####[address] No Panel InformationOrdered By: Karly Nielsen on 02-09-2024 Estimated GFR (CKD-EPI) > 60.0 mL/Min [facility] Creatinine Clearance (Chem 105.09 [facility] Nucleated erythrocytes [Pres ence] in Blood by Automated countOrdered By: Karly Nielsen on 02-09-2024 Nucleated RBC Auto Ql (Bld) 0.1 /100{WBC} 0-0.5 [facility] PSA Total (Not a Screen)on 0 02-09-2024 PSA Total (Not a Screen) 0.750 ng/mL Normal 0.000-4.000 [facility] Comment on above: Result Comment: Seri al tumor marker results determined by assays using different manufacturers or methods may not be comparable. [facility] tire care manager and method: [employer] DXI, CHEMILUMINESCENT IMMUNOASSAY. PERFORMED BY: [place] [address] PATHOLOGIST SHIP WIRER CHANDAN WINSTON M.D. Performed By: #### P SATOTAL #### [facility] [address] [place] [address] Platelet mean volume [Entiti c volume] in Blood by Automated countOrdered By: Karly Nielsen on 02-09-2024 Platelet mean volume (Bld) [Entitic vol] 7.5 fL Normal 6.6-10.1 [facility] Comment on above: Performed By: #### C BC, CMP, MG ####[address] Platelets [#/volume] in Bloo d by Automated countOrdered By: Karly Nielsen on 02-09-2024 Platelets (Bld) [#/Vol] 246 10*3/uL Normal 150-450 [facility] Comment on above: Performed By: #### C BC, CMP, MG ####[address] Potassium [Moles/volume] in Serum or PlasmaOrdered By: Karly Nielsen on 02-09-2024 Potassium [Moles/Vol] 4.2 mmol/L Normal 3.5-5.1 [facility] Comment on above: Performed By: #### C BC, CMP, MG ####[address] Prostate specific Ag [Mass/v olume] in Serum or PlasmaOrdered By: Abner Monique on 02-09-2024 Prostate specific Ag [Mass/Vol] 0.750 ng/mL 0.000-4.000 [facility] Comment on above: Serial tumor marker results determined by assays using different manufacturers or methods may not be comparable.[facility] tire care manager and method:[employer] DXI, CHEMILUMINESCENT IMMUNOASSAY. Protein [Mass/volume] in Ser um or PlasmaOrdered By: Karly Nielsen on 02-09-2024 Protein [Mass/Vol] 7.4 g/dL Normal 6.4-8.9 [facility] Comment on above: Performed By: #### C BC CMP, MG ####[place] [id number] Serum globulin measurement b y calculation (mass/volume)Ordered By: Karly Garcia on 02-09-2024 Globulin (S) [Mass/Vol] 3.1 g/dL Normal [facility] Comment on above: Performed By: #### C BC, CMP, MG ####[place] [id number] Serum or plasma albumin/glob ulin mass ratioOrdered By: Karly Nielsen on 02-09-2024 Albumin/Globulin [Mass ratio] 1.4 {ratio} Normal [facility] Comment on above: Performed By: #### C BC CMP, MG ####[address] Serum or plasma anion gap de terminationOrdered By: Karly Nielsen on 02-09-2024 Anion gap [Moles/Vol] 8.7 mmol/L Normal 6.0-15.0 [facility] Comment on above: Performed By: #### C BC, CMP, MG ####[place] [address] Sodium [Moles/volume] in Ser um or PlasmaOrdered By: Karly Nielsen on 02-09-2024 Sodium [Moles/Vol] 133 mmol/L Low 136-145 [facility] Comment on above: Performed By: #### C BC, CMP, MG ####[facility] [address] [place] [id number] [place] Urea nitrogen [Mass/volume] in Serum or PlasmaOrdered By: Karly Nielsen on 02-09-2024 Urea nitrogen [Mass/Vol] 19 mg/dL Normal 7-25 [facility] Comment on above: Performed By: #### C BC, CMP, MG ####[facility] [place] [id number] [place] Alanine aminotransferase [En zymatic activity/volume] in Serum or PlasmaOrdered By: Karly Nielsen on 02-02-2024 ALT [Catalytic activity/Vol] 33 U/L Normal 7-52 [facility] Comment on above: Performed By: #### M G, CBC, CMP #### [facility] [address] [place] [address] [place] Albumin [Mass/volume] in Ser um or Plasma by Bromocresol green (BCG) dye binding methoOrdered By: Karly Nielsen on 02-02-2024 Albumin BCG dye [Mass/Vol] 4.4 g/dL 3.5-5.7 [facility] Alkaline phosphatase [Enzyma tic activity/volume] in Serum or PlasmaOrdered By: Karly Nielsen on 02-02-2024 ALP [Catalytic activity/Vol] 56 U/L Normal 34-104 [facility] Comment on above: Performed By: #### M G, CBC, CMP #### [facility] [address] [place] [id number] [place] Aspartate aminotransferase [ Enzymatic activity/volume] in Serum or PlasmaOrdered By: Karly Nielsen on 02-02-2024 AST [Catalytic activity/Vol] 23 U/L Normal 13-39 [facility] Comment on above: Performed By: #### M G, CBC, CMP #### [facility] [address] [place] [id number] [place] Automated basophil %Ordered By: Karly Nielsen on 02-02-2024 Basophils/100 WBC (Bld) 0.6 % Normal . [facility] Comment on above: Performed By: #### M G, CBC, CMP #### [address] Automated basophil countOrde red By: Karly Nielsen on 02-02-2024 Basophils (Bld) [#/Vol] 0.1 10*3/uL Normal 0.0-0.2 [facility] Comment on above: Result Comment: PERF ORMED BY: [place] [address] PATHOLOGIST SHIP WIRER CHANDAN WINSTON M.D. Performed By: #### M G, CBC, CMP #### [address] Automated blood monocyte cou ntOrdered By: Karly Nielsen on 02-02-2024 Monocytes (Bld) [#/Vol] 1.0 10*3/uL High 0.0-0.8 [facility] Comment on above: Performed By: #### M G, CBC, CMP #### [address] Automated eosinophil %Ordere d By: Karly Nielsen on 02-02-2024 Eosinophils/100 WBC (Bld) 2.1 % Normal . [facility] Comment on above: Performed By: #### M G, CBC, CMP #### [address] Automated eosinophil countOr dered By: Karly Nielsen on 02-02-2024 Eosinophils (Bld) [#/Vol] 0.2 10*3/uL Normal 0.0-0.45 [facility] Comment on above: Performed By: #### M G, CBC, CMP #### [address] Automated monocyte %Ordered By: Karly Nielsen on 02-02-2024 Monocytes/100 WBC (Bld) 11.4 % Normal . [facility] Comment on above: Performed By: #### M G, CBC, CMP #### [facility] [address] Automated neutrophil %Ordere d By: Karly Nielsen on 02-02-2024 Neutrophils/100 WBC (Bld) 67.7 % Normal . [facility] Comment on above: Performed By: #### M G, CBC, CMP #### [address] Bilirubin.total [Mass/volume ] in Serum or PlasmaOrdered By: Karly Nielsen on 02-02-2024 Bilirubin [Mass/Vol] 1.0 mg/dL Normal 0.3-1.0 [facility] Comment on above: Performed By: #### M G, CBC, CMP #### [address] Calcium [Mass/volume] in Ser um or PlasmaOrdered By: acosta Nielsen on 02-02-2024 Calcium [Mass/Vol] 9.6 mg/dL Normal 8.6-10.3 [facility] Comment on above: Performed By: #### M G, CBC, CMP #### [address] Carbon dioxide, total [Moles /volume] in Serum or PlasmaOrdered By: Karly Garcia on 02-02-2024 CO2 [Moles/Vol] 29.9 mmol/L Normal 21.0-31.0 [facility] Comment on above: Performed By: #### M G, CBC, CMP #### [place] [address] [place] Chloride [Moles/volume] in S ray or PlasmaOrdered By: acosta Nielsen on 02-02-2024 Chloride [Moles/Vol] 100 mmol/L Normal 98-107 [facility] Comment on above: Performed By: #### M G, CBC, CMP #### [facility] [address] [place] [address] Complete Blood Count Auto Di ffon 02-02-2024 Mean Corpuscular HGB Conc 35.6 g/dL Normal 32.5-35.6 [facility] Comment on above: Performed By: #### M G, CBC, CMP #### [address] NRBC% 0.1 /100{WBC} Normal 0-0.5 [facility] Comment on above: Performed By: #### M G, CBC, CMP #### [facility] [address] [place] [address] Comprehensive Metabolic Pane darren 02-02-2024 Albumin [Mass/Vol] 4.4 g/dL Normal 3.5-5.7 [facility] Comment on above: Performed By: #### M G, CBC, CMP #### [address] Creatinine Clr Calc Pharmacy 106.54 Normal [facility] Comment on above: Performed By: #### M G, CBC, CMP #### [address] GFR/1.73 sq M.predicted MDRD (S/P/Bld) [Vol rate/Area] mL/min/{1.73_m2} Normal [facility] Comment on above: Performed By: #### M G, CBC, CMP #### [address] Creatinine [Mass/volume] in Serum or PlasmaOrdered By: Karly Nielsen on 02-02-2024 Creatinine [Mass/Vol] 0.96 mg/dL Normal 0.70-1.30 [facility] Comment on above: Performed By: #### M G, CBC, CMP #### [address] Erythrocyte distribution wid th [Ratio] by Automated countOrdered By: Karly Garcia on 02-02-2024 Erythrocyte distribution width (RBC) [Ratio] 12.2 % Normal 12.0-14.8 [facility] Comment on above: Performed By: #### M G, CBC, CMP #### [place] [address] [place] Erythrocytes [#/volume] in B lood by Automated countOrdered By: Karly Nielsen on 02-02-2024 RBC (Bld) [#/Vol] 4.49 10*6/uL Normal 3.90-5.60 [facility] Comment on above: Performed By: #### M G, CBC, CMP #### [facility] [address] [place] [address] [place] Glucose [Mass/volume] in Ser um or PlasmaOrdered By: Karly Nielsen on 02-02-2024 Glucose [Mass/Vol] 118 mg/dL High 70-100 [facility] Comment on above: ADA recommended refe rence rangeRandom Glucose Reference Range is dependent on time and content of last meal. Glucose of more than 200 mg/dL in a nonstressed, ambulatory subject supports the diagnosis of Diabetes Mellitus. Result Comment: [place] om Glucose Reference Range is dependent on time and content of last meal. Glucose of more than 200 mg/dL in a nonstressed, ambulatory subject supports the diagnosis of Diabetes Mellitus. ADA recommended reference range Performed By: #### M G, CBC, CMP #### [facility] [address] [place] [address] [place] Hematocrit [Volume Fraction] of Blood by Automated countOrdered By: Karly Garcia on 02-02-2024 Hematocrit (Bld) [Volume fraction] 42.7 % Normal 38.8-50.0 [facility] Comment on above: Performed By: #### M G, CBC, CMP #### [facility] [address] [place] [address] [place] Hemoglobin [Mass/volume] in BloodOrdered By: Karly Nielsen on 02-02-2024 Hemoglobin (Bld) [Mass/Vol] 15.2 g/dL Normal 13.0-17.0 [facility] Comment on above: Performed By: #### M G, CBC, CMP #### [facility] [address] [place] [address] [place] Leukocytes [#/volume] correc evelyn for nucleated erythrocytes in Blood by Automated counOrdered By: Karly Nielsen on 02-02-2024 WBC corrected for nucl RBC Auto (Bld) [#/Vol] 9.1 10*3/uL 4.1-10.5 [facility] Leukocytes [#/volume] in Blo od by Automated countOrdered By: Karly Nielsen on 02-02-2024 WBC (Bld) [#/Vol] 9.1 10*3/uL Normal 4.1-10.5 [facility] Comment on above: Performed By: #### M G, CBC, CMP #### [facility] [address] [place] [address] [place] Lymphocytes [#/volume] in Bl ood by Automated countOrdered By: Karly Nielsen on 02-02-2024 Lymphocytes (Bld) [#/Vol] 1.7 10*3/uL Normal 1.00-4.8 [facility] Comment on above: Performed By: #### M G, CBC, CMP #### [facility] [address] [place] [address] [place] Lymphocytes/100 leukocytes i n Blood by Automated countOrdered By: Karly Nielsen on 02-02-2024 Lymphocytes/100 WBC (Bld) 18.2 % Normal . [facility] Comment on above: Performed By: #### M G, CBC, CMP #### [facility] [address] [place] [address] [place] MCH [Entitic mass] by Automa evelyn countOrdered By: Karly Nielsen on 02-02-2024 MCH (RBC) [Entitic mass] 33.9 pg Normal 27.5-35.2 [facility] Comment on above: Performed By: #### M G, CBC, CMP #### [facility] [address] [place] [address] [place] MCHC Auto (RBC) [Mass/Vol]Or dered By: Karly Nielsen on 02-02-2024 MCHC (RBC) [Mass/Vol] 35.6 g/dL 32.5-35.6 [facility] MCV [Entitic volume] by Auto mated countOrdered By: Karly Nielsen on 02-02-2024 MCV (RBC) [Entitic vol] 95.1 fL Normal 83.5-101 F [facility] Comment on above: Performed By: #### M G, CBC, CMP #### [address] Magnesium [Mass/volume] in S ray or PlasmaOrdered By: acosta Nielsen on 02-02-2024 Magnesium [Mass/Vol] 2.0 mg/dL Normal 1.9-2.7 [facility] Comment on above: Result Comment: PERF ORMED BY: [place] [address] PATHOLOGIST SHIP WIRER CHANDAN WINSTON M.D. Performed By: #### M G, CBC, CMP #### [address] Neutrophils [#/volume] in Bl ood by Automated countOrdered By: acosta Nielsen on 02-02-2024 Neutrophils (Bld) [#/Vol] 6.2 10*3/uL Normal 1.8-7.7 [facility] Comment on above: Performed By: #### M G, CBC, CMP #### [address] No Panel InformationOrdered By: acosta Nielsen on 02-02-2024 Estimated GFR (CKD-EPI) > 60.0 mL/Min [facility] Creatinine Clearance (Chem 106.54 [facility] Nucleated erythrocytes [Pres ence] in Blood by Automated countOrdered By: acosta Nielsen on 02-02-2024 Nucleated RBC Auto Ql (Bld) 0.1 /100{WBC} 0-0.5 [facility] Platelet mean volume [Entiti c volume] in Blood by Automated countOrdered By: acosta Nielsen on 02-02-2024 Platelet mean volume (Bld) [Entitic vol] 7.9 fL Normal 6.6-10.1 [facility] Comment on above: Performed By: #### M G, CBC, CMP #### [facility] [address] [place] [address] Platelets [#/volume] in Bloo d by Automated countOrdered By: Karly iNelsen on 02-02-2024 Platelets (Bld) [#/Vol] 250 10*3/uL Normal 150-450 [facility] Comment on above: Performed By: #### M G, CBC, CMP #### [facility] [address] [place] [address] Potassium [Moles/volume] in Serum or PlasmaOrdered By: Karly Nielsen on 02-02-2024 Potassium [Moles/Vol] 3.9 mmol/L Normal 3.5-5.1 [facility] Comment on above: Performed By: #### M G, CBC, CMP #### [address] Protein [Mass/volume] in Ser um or PlasmaOrdered By: Karly Nielsen on 02-02-2024 Protein [Mass/Vol] 7.6 g/dL Normal 6.4-8.9 [facility] Comment on above: Performed By: #### M G, CBC, CMP #### [facility] [address] [place] [address] Serum globulin measurement b y calculation (mass/volume)Ordered By: Karly Garcia on 02-02-2024 Globulin (S) [Mass/Vol] 3.2 g/dL Normal [facility] Comment on above: Performed By: #### M G, CBC, CMP #### [facility] [address] [place] [address] Serum or plasma albumin/glob ulin mass ratioOrdered By: Karly Nielsen on 02-02-2024 Albumin/Globulin [Mass ratio] 1.4 {ratio} Normal [facility] Comment on above: Performed By: #### M G, CBC, CMP #### [facility] [address] [place] [address] Serum or plasma anion gap de terminationOrdered By: Karly Nielsen on 02-02-2024 Anion gap [Moles/Vol] 9.0 mmol/L Normal 6.0-15.0 [facility] Comment on above: Performed By: #### M G, CBC, CMP #### [facility] [address] [place] [address] [place] Sodium [Moles/volume] in Ser um or PlasmaOrdered By: Karly Nielsen on 02-02-2024 Sodium [Moles/Vol] 135 mmol/L Low 136-145 [facility] Comment on above: Performed By: #### M G, CBC, CMP #### [address] Urea nitrogen [Mass/volume] in Serum or PlasmaOrdered By: Karly Nielsen on 02-02-2024 Urea nitrogen [Mass/Vol] 16 mg/dL Normal 7-25 [facility] Comment on above: Performed By: #### M G, CBC, CMP #### [place] [address] [place] Alanine aminotransferase [En zymatic activity/volume] in Serum or PlasmaOrdered By: Karly Nielsen on 01-20-2024 ALT [Catalytic activity/Vol] 22 U/L 7-52 [facility] Comment on above: Performed By: #### C MP, MG #### [place] [address] [place] Albumin [Mass/volume] in Ser um or Plasma by Bromocresol green (BCG) dye binding methoOrdered By: Karly Nielsen on 01-20-2024 Albumin BCG dye [Mass/Vol] 3.9 g/dL 3.5-5.7 [facility] Alkaline phosphatase [Enzyma tic activity/volume] in Serum or PlasmaOrdered By: Karly Nielsen on 01-20-2024 ALP [Catalytic activity/Vol] 54 U/L 34-104 [facility] Comment on above: Performed By: #### C MP, MG #### [place] [address] [place] Aspartate aminotransferase [ Enzymatic activity/volume] in Serum or PlasmaOrdered By: Karly Nielsen on 01-20-2024 AST [Catalytic activity/Vol] 21 U/L 13-39 [facility] Comment on above: Performed By: #### C MP, MG #### [address] Automated basophil %Ordered By: Karly Nielsen on 01-20-2024 Basophils/100 WBC (Bld) 1.1 % . [facility] Comment on above: Performed By: #### M G, CBC, CMP #### [address] Automated basophil countOrde red By: Karly Nielsen on 01-20-2024 Basophils (Bld) [#/Vol] 0.1 10*3/uL 0.0-0.2 [facility] Comment on above: Result Comment: PERF ORMED BY: [place] [address] PATHOLOGIST SHIP WIRER CHANDAN WINSTON M.D. Performed By: #### M G, CBC, CMP #### [address] Automated blood monocyte cou ntOrdered By: Karly Nielsen on 01-20-2024 Monocytes (Bld) [#/Vol] 0.7 10*3/uL 0.0-0.8 [facility] Comment on above: Performed By: #### M G, CBC, CMP #### [address] Automated eosinophil %Ordere d By: Karly Nielsen on 01-20-2024 Eosinophils/100 WBC (Bld) 6.2 % . [facility] Comment on above: Performed By: #### M G, CBC, CMP #### [address] Automated eosinophil countOr dered By: Karly Nielsen on 01-20-2024 Eosinophils (Bld) [#/Vol] 0.3 10*3/uL 0.0-0.45 [facility] Comment on above: Performed By: #### M G, CBC, CMP #### [facility] [address] Automated monocyte %Ordered By: Karly Nielsen on 01-20-2024 Monocytes/100 WBC (Bld) 12.2 % . [facility] Comment on above: Performed By: #### M G, CBC, CMP #### [facility] [address] Automated neutrophil %Ordere d By: Karly Nielsen on 01-20-2024 Neutrophils/100 WBC (Bld) 51.4 % . [facility] Comment on above: Performed By: #### M G, CBC, CMP #### [address] Bilirubin.total [Mass/volume ] in Serum or PlasmaOrdered By: acosta Nielsen on 01-20-2024 Bilirubin [Mass/Vol] 0.5 mg/dL 0.3-1.0 [facility] Comment on above: Performed By: #### C MP, MG #### [facility] [address] [place] [address] Calcium [Mass/volume] in Ser um or PlasmaOrdered By: acosta Nielsen on 01-20-2024 Calcium [Mass/Vol] 8.9 mg/dL 8.6-10.3 [facility] Comment on above: Performed By: #### C MP, MG #### [facility] [address] [place] [address] Carbon dioxide, total [Moles /volume] in Serum or PlasmaOrdered By: acosta Garcia on 01-20-2024 CO2 [Moles/Vol] 27.1 mmol/L 21.0-31.0 [facility] Comment on above: Performed By: #### C MP, MG #### [place] [address] [place] Chloride [Moles/volume] in S ray or PlasmaOrdered By: acosta Nielsen on 01-20-2024 Chloride [Moles/Vol] 106 mmol/L 98-107 [facility] Comment on above: Performed By: #### C MP, MG #### [address] Complete Blood Count Auto Di ffon 01-20-2024 Mean Corpuscular HGB Conc 34.6 g/dL Normal 32.5-35.6 [facility] Comment on above: Performed By: #### M G, CBC, CMP #### [address] NRBC% 0.1 /100{WBC} Normal 0-0.5 [facility] Comment on above: Performed By: #### M G, CBC, CMP #### [address] Comprehensive Metabolic Pane darren 01-20-2024 Albumin [Mass/Vol] 3.9 g/dL Normal 3.5-5.7 [facility] Comment on above: Performed By: #### C MP, MG #### [address] Creatinine Clr Calc Pharmacy 96.96 Normal [facility] Comment on above: Performed By: #### C MP, MG #### [address] GFR/1.73 sq M.predicted MDRD (S/P/Bld) [Vol rate/Area] mL/min/{1.73_m2} Normal [facility] Comment on above: Performed By: #### C MP, MG #### [address] Creatinine [Mass/volume] in Serum or PlasmaOrdered By: Karly Nielsen on 01-20-2024 Creatinine [Mass/Vol] 1.06 mg/dL 0.70-1.30 [facility] Comment on above: Performed By: #### C MP, MG #### [address] Erythrocyte distribution wid th [Ratio] by Automated countOrdered By: Karly Garcia on 01-20-2024 Erythrocyte distribution width (RBC) [Ratio] 12.2 % 12.0-14.8 [facility] Comment on above: Performed By: #### M G, CBC, CMP #### [facility] [address] Erythrocytes [#/volume] in B lood by Automated countOrdered By: Karly Nielsen on 01-20-2024 RBC (Bld) [#/Vol] 4.09 10*6/uL 3.90-5.60 [facility] Comment on above: Performed By: #### M G, CBC, CMP #### [facility] [address] [place] [address] Glucose [Mass/volume] in Ser um or PlasmaOrdered By: Karly Nielsen on 01-20-2024 Glucose [Mass/Vol] 131 mg/dL High 70-100 [facility] Comment on above: ADA recommended refe rence rangeRandom Glucose Reference Range is dependent on time and content of last meal. Glucose of more than 200 mg/dL in a nonstressed, ambulatory subject supports the diagnosis of Diabetes Mellitus. Result Comment: [place] om Glucose Reference Range is dependent on time and content of last meal. Glucose of more than 200 mg/dL in a nonstressed, ambulatory subject supports the diagnosis of Diabetes Mellitus. ADA recommended reference range Performed By: #### C MP, MG #### [place] [address] [place] Hematocrit [Volume Fraction] of Blood by Automated countOrdered By: Karly Garcia on 01-20-2024 Hematocrit (Bld) [Volume fraction] 39.5 % 38.8-50.0 [facility] Comment on above: Performed By: #### M G, CBC, CMP #### [address] Hemoglobin [Mass/volume] in BloodOrdered By: Karly Nielsen on 01-20-2024 Hemoglobin (Bld) [Mass/Vol] 13.7 g/dL 13.0-17.0 [facility] Comment on above: Performed By: #### M G, CBC, CMP #### [facility] [address] Leukocytes [#/volume] correc evleyn for nucleated erythrocytes in Blood by Automated counOrdered By: Karly Nielsen on 01-20-2024 WBC corrected for nucl RBC Auto (Bld) [#/Vol] 5.4 10*3/uL 4.1-10.5 [facility] Leukocytes [#/volume] in Blo od by Automated countOrdered By: Karly Nielsen on 01-20-2024 WBC (Bld) [#/Vol] 5.4 10*3/uL 4.1-10.5 [facility] Comment on above: Performed By: #### M G, CBC, CMP #### [facility] [address] [place] [address] [place] Lymphocytes [#/volume] in Bl ood by Automated countOrdered By: Karly Nielsen on 01-20-2024 Lymphocytes (Bld) [#/Vol] 1.6 10*3/uL 1.00-4.8 [facility] Comment on above: Performed By: #### M G, CBC, CMP #### [facility] [address] [place] [address] [place] Lymphocytes/100 leukocytes i n Blood by Automated countOrdered By: Karly Nielsen on 01-20-2024 Lymphocytes/100 WBC (Bld) 29.1 % . [facility] Comment on above: Performed By: #### M G, CBC, CMP #### [facility] [address] [place] [address] [place] MCH [Entitic mass] by Automa evelyn countOrdered By: Karly Nielsen on 01-20-2024 MCH (RBC) [Entitic mass] 33.4 pg 27.5-35.2 [facility] Comment on above: Performed By: #### M G, CBC, CMP #### [facility] [address] [place] [address] [place] MCHC Auto (RBC) [Mass/Vol]Or dered By: Karly Nielsen on 01-20-2024 MCHC (RBC) [Mass/Vol] 34.6 g/dL 32.5-35.6 [facility] MCV [Entitic volume] by Auto mated countOrdered By: Karly Nielsen on 01-20-2024 MCV (RBC) [Entitic vol] 96.6 fL 83.5-101 F [facility] Comment on above: Performed By: #### M G, CBC, CMP #### [facility] [address] [place] [address] Magnesium [Mass/volume] in S ray or PlasmaOrdered By: Karly Nielsen on 01-20-2024 Magnesium [Mass/Vol] 2.2 mg/dL 1.9-2.7 [facility] Comment on above: Result Comment: PERF ORMED BY: [place] [address] PATHOLOGIST SHIP WIRER CHANDAN WINSTON M.D. Performed By: #### C MP, MG #### [facility] [address] [place] [address] Neutrophils [#/volume] in Bl ood by Automated countOrdered By: Karly Nielsen on 01-20-2024 Neutrophils (Bld) [#/Vol] 2.8 10*3/uL 1.8-7.7 [facility] Comment on above: Performed By: #### M G, CBC, CMP #### [facility] [address] [place] [address] No Panel InformationOrdered By: Karly Nielsen on 01-20-2024 Estimated GFR (CKD-EPI) > 60.0 mL/Min [facility] Creatinine Clearance (Chem 96.96 [facility] Nucleated erythrocytes [Pres ence] in Blood by Automated countOrdered By: Karly Nielsen on 01-20-2024 Nucleated RBC Auto Ql (Bld) 0.1 /100{WBC} 0-0.5 [facility] Platelet mean volume [Entiti c volume] in Blood by Automated countOrdered By: Karly Nielsen on 01-20-2024 Platelet mean volume (Bld) [Entitic vol] 7.7 fL 6.6-10.1 [facility] Comment on above: Performed By: #### M G, CBC, CMP #### [address] Platelets [#/volume] in Bloo d by Automated countOrdered By: acosta Nielsen on 01-20-2024 Platelets (Bld) [#/Vol] 206 10*3/uL 150-450 [facility] Comment on above: Performed By: #### M G, CBC, CMP #### [address] Potassium [Moles/volume] in Serum or PlasmaOrdered By: acosta Nielsen on 01-20-2024 Potassium [Moles/Vol] 4.5 mmol/L 3.5-5.1 [facility] Comment on above: Performed By: #### C MP, MG #### [address] Protein [Mass/volume] in Ser um or PlasmaOrdered By: acosta Nielsen on 01-20-2024 Protein [Mass/Vol] 6.8 g/dL 6.4-8.9 [facility] Comment on above: Performed By: #### C MP, MG #### [address] Serum globulin measurement b y calculation (mass/volume)Ordered By: acosta Garcia on 01-20-2024 Globulin (S) [Mass/Vol] 2.9 g/dL [facility] Comment on above: Performed By: #### C MP, MG #### [address] Serum or plasma albumin/glob ulin mass ratioOrdered By: acosta Nielsen on 01-20-2024 Albumin/Globulin [Mass ratio] 1.3 {ratio} [facility] Comment on above: Performed By: #### C MP, MG #### [address] Serum or plasma anion gap de terminationOrdered By: Karly Nielsen on 01-20-2024 Anion gap [Moles/Vol] 8.4 mmol/L 6.0-15.0 [facility] Comment on above: Performed By: #### C MP, MG #### [place] [address] [place] Sodium [Moles/volume] in Ser um or PlasmaOrdered By: Karly Nielsen on 01-20-2024 Sodium [Moles/Vol] 137 mmol/L 136-145 [facility] Comment on above: Performed By: #### C MP, MG #### [address] Urea nitrogen [Mass/volume] in Serum or PlasmaOrdered By: Karly Nielsen on 01-20-2024 Urea nitrogen [Mass/Vol] 18 mg/dL 7-25 [facility] Comment on above: Performed By: #### C MP, MG #### [place] [address] [place] XR chest 1V portableon 01-19 XR chest 1V portable [facility] Main [place] [address] [place] [address] XRay Report Signed Patient: Alen Calderon MR#: [id number] : 1965 Acct:[id number] Age/Sex: 58 / M ADM Date: 01/20/24 Loc: [place] Room: Type: [facility] Attending Dr: Nohemi Hudson DO Copies to: Nohemi Husdon DO Ordering Provider: Nohemi Hudson DO Date of Service: 01/20/24 XR/XR chest 1V portable: POST PORT Plain film chest Single view HISTORY: Xwhwjs-s-Xizb insertion COMPARISON: None FINDINGS: SUPPORT DEVICES: None POSTSURGICAL CHANGES: Tip of the Hdlkxl-t-Xewz overlies the distal SVC HEART: Within normal limits PULMONARY DIONNA: Within normal limits MEDIASTINUM: Unremarkable LUNGS AND PLEURA: Mild basilar atelectasis. Minimal blunting of the left costophrenic angle. No pneumothorax. BONY STRUCTURES: Intact ADDITIONAL FINDINGS None XR/XR chest 1V portable IMPRESSION: No postprocedure pneumothorax. Mild atelectasis. Impression dictated by: Ishaan Hanley M.D.01/20/2024 8:26 AM Dictation Location: [place] [address] Transcribed By: [facility] 01/20/24825 Dictated By: Ishaan Hanley DO 01/20/24824 Signed By: 01/20/24825 Normal [facility] echo transthoracicon [facility] echo transthoracic [facility] Main [place] [address] [place] [address] Echocardiogram Signed Patient: Alen Calderon MR#: [id number] : 1965 Acct:[id number] Age/Sex: 58 / M ADM Date: 01/14/24 Loc: Room: Type: [facility] Attending Dr: Karly Nielsen MD Ordering Provider: Karly Nielsen MD Date of Service: 01/14/24 [facility] echo transthoracic: 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 Ablation. HTN. Interpretation Summary Mild to moderate concentric left ventricular hypertrophy. Ejection Fraction = 55-60%. A variety of Doppler measurements indicate normal left ventricular diastolic function. The left atrium appears mildly dilated. The right ventricle is mild to moderately dilated. There is trace tricuspid regurgitation. GLS ranges from 19.4 to 19.6 Procedure/Quality: A two-dimensional transthoracic echocardiogram with color flow and Doppler was performed. The study was technically good in quality. Left Ventricle: The left ventricular size is normal. Mild to moderate concentric left ventricular hypertrophy. Ejection Fraction = 55-60%. A variety of Doppler measurements indicate normal left ventricular diastolic function. No left ventricular thrombus or mass is seen. Left Atrium: The left atrium appears mildly dilated. The atrial septum appears normal. Right Atrium: The right atrium appears normal in size. Right Ventricle: The right ventricle is mild to moderately dilated. Aortic Valve: The aortic valve is normal in structure and function. Mitral Valve: The mitral valve is normal in structure and function. Tricuspid Valve: The tricuspid valve is normal in structure. There is trace tricuspid regurgitation. Pulmonic Valve: The pulmonic valve is not well visualized. Arteries: The aortic root is not well visualized. The aortic arch was visualized and no abnormalities were seen. Pericardium/Pleura: No pericardial effusion seen. There is no pleural effusion. IVC/Hepatic Veins: The inferior vena cava is normal in size, with a normal collapsibility index. Miscellaneous: GLS ranges from 19.4 to 19.6. Measurements with Normals IVSd: 1.3 cm (0.7-1.1 cm)LVIDd: 5.2 cm (3.7-5.4 cm) LVPWd: 1.6 cm (0.7-1.1 cm)LVIDs: 3.6 cm (2.3-3.6 cm) LA dimension: 4.1 cm (2.3-4.0 cm)Ao root diam: 3.0 cm(2.0-3.6 cm) asc Aorta Diam: 3.3 cm(2.1-3.4cm) Doppler with Normals RVSP(TR): 28.8 mmHg (18-35mmHg) LV V1 max: 107.7 cm/sec (0.7-1.7m/s)MV E max jassi: 69.6 cm/sec(0.8-1.3m/s) MV A max jassi: 66.2 cm/sec(0.0-0.0m/s) MV E/A: 1.1 (<1.5) MMode/2D Measurements Calculations RVDd: 3.5 cm FS: 30.3 % Ao root area: LVOT diam: 2.0 cm TAPSE: 3.1 cm EDV(Teich): 7.2 cm2 LVOT area: 3.2 cm2 RV S Jassi: 131.1 ml 15.1 cm/sec ESV(Teich): 56.1 ml EF(Teich): 57.2 % __ LVLd ap4: 8.0 cm SV(MOD-sp4): LAV(MOD-sp4): LA A2 area: 16.8 cm2 EDV(MOD-sp4): 69.1 ml 58.9 ml 121.0 ml LAV(MOD-sp2): LA A4 area: 22.5 cm2 LVLs ap4: 7.2 cm 42.0 ml LA length (vol): ESV(MOD-sp4): 6.9 cm 51.9 ml LA vol: 46.3 ml EF(MOD-sp4): 57.1 % LA vol index: 20.2 ml/m2 Doppler Measurements Calculations MV dec time: E/E' lat: 6.8 MV dec slope: Ao V2 max: 0.30 sec E/E' med: 8.1 140.1 cm/sec 233.2 cm/sec2 Ao max P.8 mmHg Ao mean P.4 mmHg Ao V2 mean: 98.9 cm/sec Ao V2 VTI: 27.2 cm DANNIE(I,D): 2.4 cm2 DANNIE(V,D): 2.5 cm2 __ LV V1 max PG: TV max PG: TR max jassi: 4.6 mmHg 26.0 mmHg 254.1 cm/sec LV V1 mean PG: TR max P.8 mmHg 2.2 mmHg RAP systole: 3.0 mmHg LV V1 mean: 67.9 cm/sec LV V1 VTI: 19.9 cm Measurements from QLAB LV GLS Endo Peak LV GLS Endo Peak LV GLS Endo Peak LV GLS Endo Peak A2C (): -19.4 % A3C (): -19.4 % A4C (): -19.6 % Avg (): -19.5 % Transcribed By: SCV Performed At: 01/14/24 0853 Signed By: Abraham Sin MD 01/14/24 1230 Normal [facility] Darren 12-25-2023 L Specimen: [id number] Received: 12/25/23 Status: ELGIN Matrinez Num: [id number] Spec Type: Surgical Subm Dr: Charly Nowak DO Tissues: A TONSIL - biopsy (RT TONSIL BX) Procedures: HE/5, Gross/Micro L4, CINtec p16, p40, FS HE/2, DIFF QWIK Age/ Patient Sex Location Account Attending Physician Alen Calderon 58/M [place] [id number] Charly Nowak DO SPEC NUM: [id number] RECD: 12/25/23 STATUS: ELGIN MARTINEZ NUM: [id number] LILI: 12/25/[address]: Charly Nowak DO ENTERED: 12/25/[address] [facility] [address] [address]: SPEC TYPE: Surgical DEPT: S ORDERED: HE/5, Gross/Micro L4, CINtec p16, p40, FS HE/2, DIFF QWIK ORDERED: HE/5, Gross/Micro L4, CINtec p16, p40, FS HE/2, DIFF QWIK Pathological Diagnosis Right tonsil biopsy: -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 Each fragment is bisected revealing an unremarkable pale-brown cut surface. The specimen is entirely submitted in A1?A2 as follows: A1 FS: Frozen section remnant A2: Remainder specimen 2 touch prep slides are performed. -------- Specimen: [id number] Received: 12/25/23 Status: ELGIN Martinez Num: [id number] Spec Type: Surgical Subm Dr: Charly Nowak DO Tissues: A TONSIL - biopsy (RT TONSIL BX) Procedures: HE/5, Gross/Micro L4, CINtec p16, p40, FS HE/2, DIFF QWIK -------- Patient: Alen Calderon [id number] (Continued) -------- Specimen: [id number] Received: 12/25/23 (Continued) Signed (signature on file) Melinda Iyer MD 12/29/231918 -------- Specimen: [id number] Received: 12/25/23 Status: ELGIN Martinez Num: [id number] Spec Type: Surgical Subm Dr: Charly Nowak DO Tissues: A TONSIL - biopsy (RT TONSIL BX) Procedures: HE/5, Gross/Micro L4, CINtec p16, p40, FS HE/2, DIFF QWIK -------- Patient: Alen Calderon [id number] (Continued) -------- Specimen: [id number] Received: 12/25/23 (Continued) Intraoperative Diagnosis FX Dx: Squamous cell carcinoma Frozen section read by: Dr. Iyer. 12/25/2023 at 1115 CPT Codes [id number] -------- -------- Specimen: [id number] Received: 12/25/23 Status: ELGIN Martinez Num: [id number] Spec Type: Surgical Subm Dr: Charly Nowak DO Tissues: A TONSIL - biopsy (RT TONSIL BX) Procedures: HE/5, Gross/Micro L4, CINtec p16, p40, FS HE/2, DIFF QWIK -------- Patient: Alen Calderon [id number] (Continued) -------- Signed (signature on file) Josh-Wally Iyer MD 12/29/231918 [facility] L Specimen: [id number] Received: 12/25/23 Status: ELGIN Walkertegan Num: [id number] Spec Type: Cytology Subm Dr: Charly Nowak DO Tissues: A FNA SLIDES PATH (RT NECK MASS) Procedures: HE/2, -, PAPSTN/16 Age/ Patient Sex Location Account Attending Physician Alen Calderon 58/M [place] [id number] Charly Nowak DO SPEC NUM: [id number] RECD: 12/25/23 STATUS: ELGIN MARTINEZ NUM: [id number] LILI: 12/25/23-[address]: Charly Nowak DO ENTERED: 12/25/[address]: SPEC TYPE: Cytology DEPT: CNG ENTERED BY: [id number] RECV BY: [id number] ORDERED: HE/2, -, PAPSTN/16 ORDERED: , -, PAPSTN/16 Pathological Diagnosis Right neck mass, FNA cytology: -Positive for metastatic malignancy, consistent with metastatic carcinoma -Please also see concurrent surgical case at [id number] Clinical Information Rt neck mass Right level 2A cervical lymph node Gross Description Received is 25 ml very pale pink fixed in Cytolyt fluid for cytology said to have been obtained as right neck mass. Cell block preparations are prepared for microscopic examination. Also received are 16 fixed smeared slides to be stained pap for microscopic examination.(CC/nh) -------- Specimen: [id number] Received: 12/25/23 Status: ELGIN Martinez Num: [id number] Spec Type: Cytology Subm Dr: Charly Nowak, Tissues: A FNA SLIDES PATH (RT NECK MASS) Procedures: , -, PAPSTN16 -------- Patient: LemuelmervinAlen [id number] (Continued) -------- Specimen: [id number] Received: 12/25/23 (Continued) Signed (signature on file) Melinda Iyer MD 12/30/23 1545 -------- Specimen: [id number] Received: 12/25/23 Status: ELGIN Martinez Num: [id number] Spec Type: Cytology Subm Dr: Charly Nowak DO Tissues: A FNA SLIDES PATH (RT NECK MASS) Procedures: HE/, -, PAPSTN/16 -------- Patient: LemuelmervinAlen [id number] (Continued) -------- Specimen: [id number] Received: 12/25/23 (Continued) Immediate Evaluation Immediate adequacy assessment: Positive for metastatic malignancy. Reported by Dr. Iyer 12/25/23' CPT Codes 37007 -------- -------- Specimen: [id number] Received: 12/25/23 Status: ELGIN Martienz Num: [id number] Spec Type: Cytology Subm Dr: Charly Nowak DO Tissues: A FNA SLIDES PATH (RT NECK MASS) Procedures: HE/2, -, PAPSTN -------- Patient: Alen Calderon [id number] (Continued) -------- Signed (signature on file) Melinda Iyer MD 12/30/23 1545 Normal [facility] Capillary blood glucose malissa urement by glucometer (mass/volume)Ordered By: Charly Nowak on 12-24-2023 Glucose [Mass/Vol] 121 mg/dL [facility] Comment on above: Random Glucose Refer ence Range is dependent on time and content of last meal. Glucose of more than 200 mg/dL in a nonstressed, ambulatory subject supports the diagnosis of Diabetes Mellitus. Result Comment: [place] Glucose Reference Range is dependent on time and content of last meal. Glucose of more than 200 mg/dL in a nonstressed, ambulatory subject supports the diagnosis of Diabetes Mellitus. PERFORMED BY: [place] [address] PATHOLOGIST [employer] CHANDAN WINSTON M.D. Performed By: #### M G, CBC, CMP #### [address] PET tumor subq tx strat sb-m [facility] 12-24-2023 PET tumor subq tx strat sb-mt [facility] Main [place] [address] [place] [address] Nuclear Medicine Report Signed Patient: Alen Calderon MR#: [id number] : 1965 Acct:[id number] Age/Sex: 58 / M ADM Date: 12/24/23 Loc: Room: Type: [facility] Attending Dr: Charly Nowak DO Copies to: DO Bruce Cash II, MD Ordering Provider: Charly Nowak DO Date of Service: 12/24/23 PET/PET tumor subq tx strat sb-mt: INITIAL/14909/ C76.0 PET tumor subq tx strat sb-mt 12/24/2023 10:05 AM SIGNS AND SYMPTOMS: Head and neck cancer PROTOCOL: PET images were obtained from skull base to mid thigh after intravenous radiotracer administration. Low-dose CT was obtained from skull base to mid thigh. After attenuation correction of PET images, fused PET CT images were generated and reconstructed in axial, sagittal, and coronal planes. COMPARISON: 12/02/2023 RADIOPHARMACEUTICAL: 13.32 mCi of intravenous fluorine 18 FDG BLOOD GLUCOSE: 121 mg/dL FINDINGS: In the region of previous soft tissue thickening along the right glossotonsillar sulcus/right lingual tonsil there is a focus of FDG accumulation with a maximum SUV of 6.5. In the region of previous pathologically enlarged lymph nodes involving the right level 2A there is a focal area of FDG accumulation with a maximum SUV of 7.8. No additional abnormal FDG avid lymph nodes are appreciated. Physiologic radiotracer accumulation is noted in the brain, larynx, myocardium, liver, spleen, kidneys, ureters, bladder, and bowel. Nonspecific cervical lymph nodes are noted in the level 2 and level 3 bilaterally measuring up to 7 mm in short axis. There is evidence of prior cholecystectomy. Atherosclerotic changes are noted in the abdominal aorta. Radiation seeds are noted in the prostate bed. There is dependent atelectasis in the lung bases. PET/PET tumor subq tx strat sb-mt IMPRESSION: In the region of previous soft tissue thickening along the right glossotonsillar sulcus/right lingual tonsil there is a focus of FDG accumulation with a maximum SUV of 6.5. In the region of previous pathologically enlarged lymph nodes involving the right level 2A there is a focal area of FDG accumulation with a maximum SUV of 7.8. No additional abnormal FDG avid lymph nodes are appreciated. No distant metastatic disease. Impression dictated by: Bruce Serrano M.D.12/24/2023 10:50 AM Dictation Location: [place] [address] Transcribed By: [facility] 12/24/23 1050 Dictated By: Bruce Serrano II, MD 12/24/23 1007 Signed By: 12/24/23 1050 Normal [facility] Basic Metabolic Panelon GFR/1.73 sq M.predicted MDRD (S/P/Bld) [Vol rate/Area] mL/min/{1.73_m2} Normal [facility] Comment on above: Performed By: #### B MP ####[place] [address] [place] [address] [facility] Calcium [Mass/volume] in Ser um or PlasmaOrdered By: Charly Nowak on 12-23-2023 Calcium [Mass/Vol] 9.8 mg/dL 8.6-10.3 [facility] Comment on above: Result Comment: PERF ORMED BY: [facility] [address] [place] [address] PATHOLOGIST [employer] CHANDAN WINSTON M.D. Performed By: #### B MP ####[place] [address] [place] [id number] [facility] Carbon dioxide, total [Moles /volume] in Serum or PlasmaOrdered By: Charly Nowak on 12-23-2023 CO2 [Moles/Vol] 28.7 mmol/L 21.0-31.0 [facility] Comment on above: Performed By: #### B MP ####[place] [address] Chloride [Moles/volume] in S ray or PlasmaOrdered By: Charly Nowak on 12-23-2023 Chloride [Moles/Vol] 102 mmol/L 98-107 [facility] Comment on above: Performed By: #### B MP ####[place] [address] [place] [id number] [facility] Creatinine [Mass/volume] in Serum or PlasmaOrdered By: Charyl Nowak on 12-23-2023 Creatinine [Mass/Vol] 0.91 mg/dL 0.70-1.30 [facility] Comment on above: Performed By: #### B MP ####[place] [id number] [facility] ECG 12 lead ECGon 12-23-2023 ECG 12 lead ECG [facility] [place] [address] Electrocardiograph Report Signed Patient: Alen Calderon MR#: [id number] : 1965 Acct:[id number] Age/Sex: 58 / M ADM Date: 12/23/23 Loc: Room: Type: [facility] Attending Dr: Charly Nowak DO Ordering Provider: Charly Nowak DO Date of Service: 12/23/2311/11/726 ECG/ECG 12 lead ECG: surgery 12/24/25 Copies to: Test Reason : Blood Pressure : / mmHG Vent. Rate : 062 BPM Atrial Rate : 062 BPM P-R Int : 194 ms QRS Dur : 098 ms QT Int : 430 ms P-R-T Axes : 023 003 043 degrees QTc Int : 436 ms Normal sinus rhythm Nonspecific ST abnormality Abnormal ECG No previous ECGs available Confirmed by HUMZA HOYT MD ([id number]) on 12/23/2023 12:05:05 PM Referred By: SHE Electronically Signed By:HUMZA HOYT MD Transcribed By: MILIND Signed By Humza Hoyt MD 0 12/23/23 1205 Normal [facility] Glucose [Mass/volume] in Ser um or PlasmaOrdered By: Charly Nowak on 12-23-2023 Glucose [Mass/Vol] 133 mg/dL High 70-100 [facility] Comment on above: ADA recommended refe rence rangeRandom Glucose Reference Range is dependent on time and content of last meal. Glucose of more than 200 mg/dL in a nonstressed, ambulatory subject supports the diagnosis of Diabetes Mellitus. Result Comment: [place] om Glucose Reference Range is dependent on time and content of last meal. Glucose of more than 200 mg/dL in a nonstressed, ambulatory subject supports the diagnosis of Diabetes Mellitus. ADA recommended reference range Performed By: #### B MP ####[address] No Panel InformationOrdered By: Charly Nowak on 12-23-2023 Estimated GFR (CKD-EPI) > 60.0 mL/Min [facility] Creatinine Clearance (Chem N/A [facility] Potassium [Moles/volume] in Serum or PlasmaOrdered By: Charly Nowak on 12-23-2023 Potassium [Moles/Vol] 4.8 mmol/L 3.5-5.1 [facility] Comment on above: Performed By: #### B MP ####[address] Serum or plasma anion gap de terminationOrdered By: Charly Nowak on 12-23-2023 Anion gap [Moles/Vol] 12.1 mmol/L 6.0-15.0 [facility] Comment on above: Performed By: #### B MP ####[place] [address] Sodium [Moles/volume] in Ser um or PlasmaOrdered By: Charly Nowak on 12-23-2023 Sodium [Moles/Vol] 138 mmol/L 136-145 [facility] Comment on above: Performed By: #### B MP ####[facility] [place] [address] [facility] Urea nitrogen [Mass/volume] in Serum or PlasmaOrdered By: Charly Nowak on 12-23-2023 Urea nitrogen [Mass/Vol] 18 mg/dL 02-11 [facility] Comment on above: Performed By: #### B MP ####[facility] [place] [address] [facility] Patient Educationon 08-18-19 Patient Education Urology Erectile Dysfunction Erectile dysfunction (ED) is the inability to get or keep an erection in order to have sexual intercourse. ED is considered a symptom of an underlying disorder and is not considered a disease. ED may include: ? Inability to get an erection. ? Lack of enough hardness of the erection to allow penetration. ? Loss of erection before sex is finished. What are the causes? This condition may be caused by: ? Physical causes, such as: ? Artery problems. This may include heart disease, high blood pressure, atherosclerosis, and diabetes. ? Hormonal problems, such as low testosterone. ? Obesity. ? Nerve problems. This may include back or pelvic injuries, multiple sclerosis, Parkinson's disease, spinal cord injury, and stroke. ? Certain medicines, such as: ? Pain relievers. ? Antidepressants. ? Blood pressure medicines and water pills (diuretics). ? Cancer medicines. ? Antihistamines. ? Muscle relaxants. ? Lifestyle factors, such as: ? Use of drugs such as marijuana, cocaine, or opioids. ? Excessive use of alcohol. ? Smoking. ? Lack of physical activity or exercise. ? Psychological causes, such as: ? Anxiety or stress. ? Sadness or depression. ? Exhaustion. ? Fear about sexual performance. ? Guilt. What are the signs or symptoms? Symptoms of this condition include: ? Inability to get an erection. ? Lack of enough hardness of the erection to allow penetration. ? Loss of the erection before sex is finished. ? Sometimes having normal erections, but with frequent unsatisfactory episodes. ? Low sexual satisfaction in either partner due to erection problems. ? A curved penis occurring with erection. The curve may cause pain, or the penis may be too curved to allow for intercourse. ? Never having nighttime or morning erections. How is this diagnosed? This condition is often diagnosed by: ? Performing a physical exam to find other diseases or specific problems with the penis. ? Asking you detailed questions about the problem. ? Doing tests, such as: ? Blood tests to check for diabetes mellitus or high cholesterol, or to measure hormone levels. ? Other tests to check for underlying health conditions. ? An ultrasound exam to check for scarring. ? A test to check blood flow to the penis. ? Doing a sleep study at home to measure nighttime erections. How is this treated? This condition may be treated by: ? Medicines, such as: ? Medicine taken by mouth to help you achieve an erection (oral medicine). ? Hormone replacement therapy to replace low testosterone levels. ? Medicine that is injected into the penis. Your health care provider may instruct you how to give yourself these injections at home. ? Medicine that is delivered with a short applicator tube. The tube is inserted into the opening at the tip of the penis, which is the opening of the urethra. A tiny pellet of medicine is put in the urethra. The pellet dissolves and enhances erectile function. This is also called MUSE (medicated urethral system for erections) therapy. ? Vacuum pump. This is a pump with a ring on it. The pump and ring are placed on the penis and used to create pressure that helps the penis become erect. ? Penile implant surgery. In this procedure, you may receive: ? An inflatable implant. This consists of cylinders, a pump, and a reservoir. The cylinders can be inflated with a fluid that helps to create an erection, and they can be deflated after intercourse. ? A semi-rigid implant. This consists of two silicone rubber rods. The rods provide some rigidity. They are also flexible, so the penis can both curve downward in its normal position and become straight for sexual intercourse. ? Blood vessel surgery to improve blood flow to the penis. During this procedure, a blood vessel from a different part of the body is placed into the penis to allow blood to flow around (bypass) damaged or blocked blood vessels. ? Lifestyle changes, such as exercising more, losing weight, and quitting smoking. Follow these instructions at home: Medicines ? Take wdqp-jwn-loysyts and prescription medicines only as told by your health care provider. Do not increase the dosage without first discussing it with your health care provider. ? If you are using self-injections, do injections as directed by your health care provider. Make sure you avoid any veins that are on the surface of the penis. After giving an injection, apply pressure to the injection site for 5 minutes. ? Talk to your health care provider about how to prevent headaches while taking ED medicines. These medicines may cause a sudden headache due to the increase in blood flow in your body. General instructions ? Exercise regularly, as directed by your health care provider. Work with your health care provider to lose weight, if needed. ? Do not use any products that contain nicotine or tobacco. These products include cig (more content not included)... Normal [facility] Urology Office/Clinic Noteon 08-18-2023 Urology Office/Clinic Note Chief Complaint hx of prostate cancer HPI Staff 1 year with PSA. Previous dx of hx of prostate cancer (Brachytherapy 09/09/19), BPH with urinary obstruction, family hx of prostate cancer (father) and organic impotence. Current PSA done 07/11/23 is 0.41 and previous done 07/16/22 was 0.19. Dysuria: no Incomplete bladder emptying: no Hematuria: no Frequency: no Urgency: no Nocturia: 2x Stream: no straining or intermittency Leaking: no Post void dripping: yes Wearing pads/ Depends: no Urge incontinence: no Stress incontinence: no Incontinence without Sensory Awareness: no Abdominal pain: no Flank pain: no Sexual complaints: no History of Present Illness Tests reviewed: reviewed UA, PSA I have reviewed the previous health record information and history for this patient from Dr. Monique. I have reviewed and verified the staff HPI to be accurate for this encounter. Review of Systems PHQ Score Initial Depression Screen Score: 0 SCORE ROS - Provider Constitutional: denies weight loss, denies hot flashes. Eyes: denies eye problems. Gastrointestinal: denies nausea, denies vomiting. Cardiovascular: denies chest pain or angina. Integumentary: no dryness Musculoskeletal: denies musculoskeletal symptoms. ENMT: denies otolaryngeal symptoms. Respiratory: no shortness of breath. Heme/Lymph: denies easy bleeding tendency, denies easy bruising tendency. Psychiatric: no confusion, no anxiety. Genitourinary: See HPI. Physical Exam Vitals & Measurements HR: 84(Peripheral) RR: 16 BP: 132/86 HT: 70 in HT: 177 cm WT: 113.2 kg WT: 249.04 lb BMI: 36.13 General Appearance: alert, no distress, well nourished, well developed male. Genitourinary: normal scrotum, normal testes, normal urethra, normal epididymis, normal vas deferens/spermatic cord. Flank Pain: none. Bladder: nonpalpable. Assessment/Plan 1. History of prostate cancer (Z85.46: Personal history of malignant neoplasm of prostate) PSA 01/19/21 - 0.74 07/17/21 - 0.3 07/16/22 - 0.19 07/11/23 - 0.41 S/p TRUS/bx 07/20/19 - GS 6 (3+3) in 4 cores. GG1. 2 MARK cores. 8% highest percent core involvement. No cribriform pattern present. Initial PSA 4.34. Brachytherapy 09/09/19. Discussed PSA level w/ pt, has increased from prior. Advised pt this is not of significant concern but will require closer monitoring. Pt agrees to get PSA checked q6mos for now. -PSA in 6 mos and 1 yr, f/u in 1 yr 2. Impotence (N52.9: Male erectile dysfunction, unspecified) Took Sildenafil 100mg prn in the past. Pt did try taking 2 pills at once. D/c Sildenafil as it did not work well and dosage being unsafe. Taking Tadalafil 20mg prn. States this works well occasionally but is not satisfied with results. Discussed alternative options for ED, including erection pumps, MUSE intraurethral pellet, intracorporal injection therapy, and surgical options. Recommended pt to try Tadalafil with a vacuum device with appropriate sizing. -Cont tadalafil 20mg prn. Refills sent to [facility], pt to use [facility]. -Try vacuum device -Consider ICI 3. BPH with urinary obstruction (N40.1: Benign prostatic hyperplasia with lower urinary tract symptoms) Not currently taking BPH medications. UA today negative for blood and infection. Denies any bothersome urinary habits. 4. Family history of prostate cancer (Z80.42: Family history of malignant neoplasm of prostate) Father. [1] Follow-up With When Contact Information KAYDEN URBINA, Abner Mojica, [facility] [address], [place] [address]- [phone] Additional Instructions: PSA in 6 mos, f/u in 1 yr w/ repeat PSA Patient Education Erectile Dysfunction I, Mihaela Flores, personally scribed for Dr. Monique on 08/18/2023 11:47:41. . Documentation recorded by the scribe, Mihaela Flores, accurately reflects the services(s) I performed and decisions made by me. Authenticated by Dr. Monique on 08/18/2023 11:50:37. Problem List/Past Medical History Ongoing Anticoagulated Atrial [...] Cholecystectomy, History of hernia repair, Vasectomy. Medications amiodarone 200 mg Tab, Oral, Daily amLODIPine 10 mg Tab carvedilol 25 mg Tab Eliquis 5 mg oral tablet furosemide 40 mg Tab losartan 100 mg Tab omeprazole 20 mg Cap-DR Allergies oxyCODONE (Itch) Socia (more content not included)... Normal [facility] Comment on above: Result Comment: Elec tronically Signed By: Abner MONIQUE MD\.br\Date and Time Signed: 08/18/23 11:50 EST\.br\Electronically Co-Signed By: Mihaela Flores\.br\Date and Time Co-Signed: 08/18/23 11:48 EST Lab Reportson 07-15-2023 Lab Reports [id number] Normal [facility] Office Visiton 05-07-2023 Follow-up visit [id number] Alen Calderon 1965 M Date Provider Department Center 05/07/2023 Bhavin-ADOLFO CANTU [facility] Family History Problem Relation Age of Onset No Known Problems Mother No Known Problems Father Family Status - Relation Status Age at Mother Father Level of Service:71726 PA OFFICE/OUTPATIENT ESTABLISHED MOD MDM 30-[address] [facility] Office Visiton 04-09-2023 Follow-up visit [id number] Alen Calderon 1965 M Date Provider Department Center 04/09/2023 VINCENT BURK [facility] Family History Problem Relation Age of Onset No Known Problems Mother No Known Problems Father Family Status - Relation Status Age at Mother Father Level of Service:21903 PA OFFICE/OUTPATIENT ESTABLISHED MOD MDM 30-39 MIN Reason for Visit and Comments: Follow-up [168237] - 6 month F/U [facility] Office Visiton 09-25-2022 Follow-up visit [id number] Alen Calderon 1965 M Date Provider Department Center 09/25/2022 STELLA HARPER [facility] Family History Problem Relation Age of Onset No Known Problems Mother No Known Problems Father Family Status - Relation Status Age at Mother Father Level of Service:72609 PA OFFICE/OUTPATIENT ESTABLISHED LOW MDM 20-29 MIN Reason for Visit and Comments: Atrial Fibrillation [80] Normal [facility] Auth for Release of Medical Recordson 09-24-2022 Auth for Release of Medical Records [id number] .00CD:127 [facility] Auth for Release of Medical Recordson 09-06-2022 Auth for Release of Medical Records [id number] .00CD:127 [facility] Auth for Release of Medical Recordson 09-02-2022 Auth for Release of Medical Records [id number] .00CD:127 [facility] PROF 14(COMP METB)on 022 Albumin [Mass/Vol] 3.8 g/dL Normal 3.4-5.0 [facility] Comment on above: Performed By: #### C MP, TSH #### [facility] [address] [place] [address] [address] Edilson Iyer Albumin/Globulin [Mass ratio] 0.9 {ratio} Normal [facility] Comment on above: Performed By: #### C MP, TSH #### [facility] [address] [place] [address] [address] Edilson Iyer ALP [Catalytic activity/Vol] 69 U/L Normal 46-116 [facility] Comment on above: Performed By: #### C MP, TSH #### [facility] [address] [address] [address] Edilson Iyer ALT [Catalytic activity/Vol] 29 U/L Normal 16-63 [facility] Comment on above: Performed By: #### C MP, TSH #### [facility] [address] [place] [address] [address] Edilson Iyer Anion gap [Moles/Vol] 7.7 mmol/L Normal [facility] Comment on above: Performed By: #### C MP, TSH #### [facility] [address] [address] [address] Edilson Iyer AST [Catalytic activity/Vol] 18 U/L Normal 15-37 [facility] Comment on above: Performed By: #### C MP, TSH #### [facility] [address] [address] [address] Edilson Iyer Bilirubin [Mass/Vol] 0.4 mg/dL Normal 0.2-1.0 [facility] Comment on above: Performed By: #### C MP, TSH #### [facility] [address] [place] [address] [address] Edilson Iyer Calcium [Mass/Vol] 9.0 mg/dL Normal 8.5-10.1 [facility] Comment on above: Performed By: #### C MP, TSH #### [facility] [address] [address] [address] Edilson Iyer Chloride [Moles/Vol] 104 mmol/L Normal 98-107 [facility] Comment on above: Performed By: #### C MP, TSH #### [facility] [address] [address] [address] Edilson Iyer CO2 [Moles/Vol] 29.4 mmol/L Normal 21.0-32.0 [facility] Comment on above: Performed By: #### C MP, TSH #### [facility] [address] [address] [address] Edilson Iyer Creatinine [Mass/Vol] 1.12 mg/dL Normal 0.70-1.30 [facility] Comment on above: Performed By: #### C MP, TSH #### [facility] [address] [address] [address] Edilson Iyer EGFR-AF ICELANDIC >60 Normal >=60 [facility] Comment on above: Performed By: #### C MP, TSH #### [facility] [address] [place] [address] Dr. Edilson Iyer EGFR-NON AF ICELANDIC >60 Normal >=60 [facility] [facility] Comment on above: Performed By: #### C MP, TSH #### [facility] [address] [place] [address] Dr. Edilson Iyer Globulin (S) [Mass/Vol] 4.0 g/dL Normal [facility] Comment on above: Performed By: #### C MP, TSH #### [facility] [address] [place] [address] Dr. Edilson Iyer Glucose [Mass/Vol] 108 mg/dL Critically high 74-106 [facility] Comment on above: Performed By: #### C MP, TSH #### [facility] [address] [place] [address] Dr. Edilson Iyer Potassium [Moles/Vol] 4.1 mmol/L Normal 3.5-5.1 [facility] Comment on above: Performed By: #### C MP, TSH #### [facility] [address] [place] [address] Dr. Edilson Iyer Protein [Mass/Vol] 7.8 g/dL Normal 6.4-8.2 [facility] Comment on above: Performed By: #### C MP, TSH #### [facility] [address] [place], [place] [address] Dr. Edilson Iyer Sodium [Moles/Vol] 137 mmol/L Normal 136-145 [facility] Comment on above: Performed By: #### C MP, TSH #### [facility] [address] [place], [place] [address] Dr. Edilson Iyer Urea nitrogen [Mass/Vol] 23.0 mg/dL Critically high 7.0-18.0 [facility] Comment on above: Performed By: #### C MP, TSH #### [facility] [address] [place], [place] [address] Dr. Edilson Iyer Urea nitrogen/Creatinine [Mass ratio] 20.5 mg/mg Normal [facility] Comment on above: Performed By: #### C MP, TSH #### [facility] [address] [place], [place] [address] Dr. Edilson Iyer TSHon 05-08-2022 TSH 1.420 uIU/mL Normal 0.358-3.740 [facility] Comment on above: Performed By: #### C MP, TSH #### [facility] [address] [place], [place] [address] Dr. Edilson Iyer Cardiovascular Lab Reporton 03-20-2022 Cardiovascular Lab Report [facility] Patient Name: Alen Calderon MR #: [id number] [facility] Physician: Theo Virgen MD Service Date: 03/20/2022 Department of Birthdate: 1965 Medicine Room #: Division of Cardiology Adult Cardiovascular Services [place] [address] Cardiovascular Laboratory Report ATRIAL FIBRILLATION ABLATION PROCEDURE NOTE DATE OF PROCEDURE: 03/20/2022 PERFORMING PHYSICIAN: Dr. Theo Virgen CONSENT: Patient NAME OF THE PROCEDURE: Pulmonary [...] CS Catheter (EZ Steer) 9Fx1: ICE catheter. [id number] Heparin bolus was given followed by additional bolus and continuous intravenous drip to target ACT around 350. An intracardiac ultrasound catheter was inserted into the right atrium to examine the right atrial anatomy, atrial septum, pulmonary vein anatomy and to monitor for pericardial effusion and guide transseptal access. At baseline, there no pericardial effusion and no FLORENTINO clot. Esophagus was mapped using the [email or web address] 3D mapping software and noted to be [...] anatomy (more content not included)... Normal [facility] POC GLUCOSE LABon 03-20-2022 Glucose [Mass/Vol] 117 mg/dL High 70-[address] [facility] Comment on above: Performed By: #### 8 [id number] #### [facility] [address] [place] [address], [facility] Glucose [Mass/Vol] 136 mg/dL High 70-[address] [facility] Comment on above: Performed By: #### 8 [id number] #### [facility] [address] [facility] [place] [address], [facility] PROTHROMBIN TIMEon 2 INR Coag (PPP) [Relative time] 1.06 {INR} Normal 0.91-1.[address] [facility] Comment on above: Order Comment: No: D o not add to previous draw Result Comment: ACCC P RECOMMENDED INR FOR WARFARIN THERAPY ------- CONDITION INR PROPHYLAXIS OF VENOUS THROMBOSIS 2-3 (HIGH-RISK SURGERY) TREATMENT OF VENOUS THROMBOSIS 2-3 TREATMENT OF PULMONARY EMBOLISM 2-3 PREVENTION OF SYSTEMIC EMBOLISM: 2-3 ACUTE MYOCARDIAL INFARCTION TISSUE HEART VALVES VALVULAR HEART DISEASE ATRIAL FIBRILLATION RECURRENT SYSTEMIC EMBOLISM MECHANICAL HEART VALVE 2.5-3.5 FROM: ORAL ANTICOAGULANTS. MECHANISM OF ACTION, CLINICAL EFFECTIVENESS, AND OPTIMAL THERAPEUTIC RANGE. CHEST 1995;108:231S-246S. Performed By: #### 5 [id number] #### [facility] [address] [facility]. [address] PT Coag (PPP) [Time] 13.8 s Normal 12.3-14.[address] [facility] Comment on above: Order Comment: No: D o not add to previous draw Result Comment: ALL RESULTS MUST BE INTERPRETED WITH RESPECT TO BLOOD DRAWING ARTIFACT OR DILUTION ERROR OF ANTICOAGULANT AT THE TIME OF SAMPLING. Performed By: #### 5 [id number] #### [facility] [address] Covid-19 PCR (CVDTBH)on 02-19 SARS-CoV-2 (COVID-19) RNA WERO+probe Ql (Unsp spec) Not detected Normal NOT DETECTED [facility] Comment on above: Result Comment: This test is not yet approved or cleared by the [place] FDA. When there are no FDA-approved or cleared tests available, and other criteria are met, FDA can make tests available under an emergency access mechanism called an Emergency Use Authorization (EUA). The EUA for this test is supported by the [place] of Health and Human Service's (HHS's) declaration [...] consistent with SARS-CoV-2. Performed By: #### [facility] #### [facility] [address] [place] [address] Dr. Edilson Iyer BASIC METABOLIC PANELon 02-18 Calcium [Mass/Vol] 10.0 mg/dL Normal 8.6-10.[address] [facility] Comment on above: Performed By: #### 0 0071 #### [facility] [address] [facility] [place] [address], [facility] Chloride [Moles/Vol] 97 mmol/L Low 98-[address] [facility] Comment on above: Performed By: #### 0 0071 #### [facility] [address] [facility] [place] [address], [facility] CO2 [Moles/Vol] 31 mmol/L Normal 21-[address] [facility] Comment on above: Performed By: #### 0 0071 #### [facility] [address] [facility] [place] [address], [facility] Creatinine [Mass/Vol] 1.11 mg/dL Normal 0.70-1.[address] [facility] Comment on above: Performed By: #### 0 0071 #### [facility] [address] [place] [address], [facility] GFR/1.73 sq M.predicted among non-blacks MDRD (S/P/Bld) [Vol rate/Area] mL/min/{1.73_m2} Normal >[address] [facility] Comment on above: Result Comment: [facility]'s estimated glomerular filtration rate (eGFR) will [...] individuals. Performed By: #### 0 0071 #### [facility] [address] [place] [address], [facility] Glucose [Mass/Vol] 124 mg/dL High 70-[address] [facility] Comment on above: Performed By: #### 0 0071 #### [facility] [address] [place] [id number], [facility] Potassium [Moles/Vol] 4.3 mmol/L Normal 3.5-5.[address] [facility] Comment on above: Performed By: #### 0 0071 #### [facility] [address] [place] [address], [facility] Sodium [Moles/Vol] 136 mmol/L Normal 136-[address] [facility] Comment on above: Performed By: #### 0 0071 #### [facility] [address] [place] [id number], [facility] Urea nitrogen [Mass/Vol] 20 mg/dL Normal 7-[address] [facility] Comment on above: Performed By: #### 0 0071 #### [facility] [address] [place] [address], [facility] CBC COMPLETE BLOOD COUNTon 0 03-05-2022 Erythrocyte distribution width (RBC) [Ratio] 12.4 % Normal 11.5-15.[address] [facility] Comment on above: Performed By: #### 5 [id number] #### [facility] [address] Hematocrit (Bld) [Volume fraction] 46.7 % Normal 39.0-50.[address] [facility] Comment on above: Performed By: #### 5 0608 #### [facility] [address] Hemoglobin (Bld) [Mass/Vol] 16.2 g/dL Normal 13.0-17.[address] [facility] Comment on above: Performed By: #### 5 [id number] #### [facility] [address] MCH (RBC) [Entitic mass] 32.9 pg Normal 27.0-33.[address] [facility] Comment on above: Performed By: #### 5 0608 #### [facility] [address] MCHC (RBC) [Mass/Vol] 34.7 g/dL Normal 32.0-35.[address] [facility] Comment on above: Performed By: #### 5 0608 #### [facility] [address] MCV (RBC) [Entitic vol] 94.9 fL Normal 82.0-98.[address] [facility] Comment on above: Performed By: #### 5 [id number] #### [facility] [address] Nucleated RBC/100 WBC (Bld) [Ratio] 0 % Normal 0-[address] [facility] Comment on above: Performed By: #### 5 [id number] #### [facility] [address] [place] [address], [facility] PLAT CNT 260 10*3/uL Normal 150-[address] [facility] Comment on above: Performed By: #### 5 0608 #### [facility] [address] [facility] [place] [address], [facility] RBC (Bld) [#/Vol] 4.92 10*6/uL Normal 4.20-5.[address] [facility] Comment on above: Performed By: #### 5 0608 #### [address] WBC (Bld) [#/Vol] 7.55 10*3/uL Normal 4.00-10.[address] [facility] Comment on above: Performed By: #### 5 [id number] #### [facility] [address] CTA CHESTon 03-05-[address] [facility] Department of Radiology [address] [place] [id number] Patient Name: ALEN CALDERON : 1965 Sex: M Age: Race: White Pt. Location: Patient Status: D Ordered Date: 01/24/2022 2:30:00 PM Completed Date: 03/05/2022 11:55 AM Requesting Provider: THEO VIRGEN Attending Provider: THEO VIRGEN Report Copy To: CHARLY HOOPER Signs & Symptoms: I48.0 Paroxysmal atrial fibrillation I10 History: [place] DM? on metformin? kidney dis? Comments: AFib Ablation 03/20 Exam: CTA CHEST Chest CTA with IV contrast, 03/05/2022 History: [...] as low as reasonably achievable. Electronically signed: Asif Urrutia. Transcribed by: [id number], User Resident: Electronically Signed by: ASIF URRUTIA @ 03/09/2022 07:[address] [facility] Comment on above: Order Comment: AFib Ablation 03/20 ECHOCARDIO M/2D COMPLETEon 0 12-27-2021 ECHOCARDIO M/2D COMPLETE Patient: ALEN CALDERON Exam Date: 12/27/2021 : 1965 Gender:M Ordering : THEO VIRGEN Admission #: [id number] Family : DR CHARLY HOOPER D.O. Order #: [id number] CLICK HERE TO VIEW EXAM ECHOCARDIOGRAM REPORT [...] Area(A4C): 23.40 cm2 Left Atrium Systolic Volume(A2C): 26988 mm3 Left Atrium Systolic Volume(A4C): 27187 mm3 Mitral Valve MV E to A Ratio: 1.20 Mitral Valve A-Wave Peak Velocity: 57.30 cm/s Mitral Valve E-Wave Peak Velocity: 67.10 cm/s Deceleration Time: 135 ms Right Ventricle Aorta AO Root Diam: 3.20 cm Aortic Valve AoV Area (Peak Jassi): 3.53 cm2 Peak Velocity(Antegrade Flow): 112.00 cm/s Peak Gradient(Antegrade Flow): 5 mm[Hg] Tricuspid Valve Pulmonic Valve Peak Velocity: 91.60 cm/s Peak Gradient: 3 mm[Hg] Right Atrium Dictated by: Jluis Espinoza M.D. on 12/27/2021 at 20:13 Approved by: Jluis Espinoza M.D. on 12/27/2021 at 20:15 [facility] Vital Signs Date Time Vital Sign Value Performing Clinician Clara camp 03-05-2024 09:28-0400 Diastolic blood pressure 77 mm[Hg] DO Charly Ball Work Phone: [facility] 03-05-2024 09:28-0400 Heart rate 64 /min DO Charly Ball Work Phone: [facility] 03-05-2024 09:28-0400 Respiratory rate 18 /min DO Charly Ball Work Phone: [facility] 03-05-2024 09:28-0400 SaO2% (BldA) [Mass fraction] 99 % DO Charly Ball Work Phone: [facility] 03-05-2024 09:28-0400 Systolic blood pressure 122 mm[Hg] DO Charly Ball Work Phone: [facility] 03-02-2024 08:18-0400 Body temperature 98.5 [degF] DO Charly Ball Work Phone: [facility] 03-02-2024 08:18-0400 Body weight 98.65 kg DO Charly Ball Work Phone: [facility] 02-25-2024 12:05-0400 Body temperature 97.6 [degF] DO Charly Ball Work Phone: [facility] 02-25-2024 12:05-0400 Body weight 103.87 kg DO Charly Ball Work Phone: [facility] 02-25-2024 12:05-0400 Diastolic blood pressure 76 mm[Hg] DO Charly Ball Work Phone: [facility] 02-25-2024 12:05-0400 Heart rate 67 /min DO Charly Ball Work Phone: [facility] 02-25-2024 12:05-0400 Respiratory rate 16 /min DO Charly Ball Work Phone: [facility] 02-25-2024 12:05-0400 SaO2% (BldA) [Mass fraction] 98 % DO Charly Ball Work Phone: [facility] 02-25-2024 12:05-0400 Systolic blood pressure 136 mm[Hg] DO Charly Ball Work Phone: [facility] 02-24-2024 16:34-0400 Body height 177.8 cm DO Charly Ball Work Phone: [facility] 02-24-2024 08:22-0400 Body temperature 98 [degF] DO Charly Ball Work Phone: [facility] 02-24-2024 08:22-0400 Diastolic blood pressure 82 mm[Hg] DO Charly Ball Work Phone: [facility] 02-24-2024 08:22-0400 Heart rate 67 /min DO Charly Ball Work Phone: [facility] 02-24-2024 08:22-0400 Respiratory rate 16 /min DO Charly Ball Work Phone: [facility] 02-24-2024 08:22-0400 SaO2% (BldA) [Mass fraction] 99 % DO Charly Ball Work Phone: [facility] 02-24-2024 08:22-0400 Systolic blood pressure 129 mm[Hg] DO Charly Ball Work Phone: [facility] 02-18-2024 15:50-0400 Body height 177.8 cm DO Charly Ball Work Phone: [facility] 02-18-2024 08:39-0400 Body temperature 97.7 [degF] DO Charly Ball Work Phone: [facility] 02-18-2024 08:39-0400 Body weight 104.91 kg DO Charly Ball Work Phone: [facility] 02-18-2024 08:39-0400 Diastolic blood pressure 57 mm[Hg] DO Charly Ball Work Phone: [facility] 02-18-2024 08:39-0400 Heart rate 61 /min DO Charly Ball Work Phone: [facility] 02-18-2024 08:39-0400 Respiratory rate 18 /min DO Charly Ball Work Phone: [facility] 02-18-2024 08:39-0400 SaO2% (BldA) [Mass fraction] 98 % DO Charly Ball Work Phone: [facility] 02-18-2024 08:39-0400 Systolic blood pressure 91 mm[Hg] DO Charly Ball Work Phone: [facility] 02-17-2024 08:48-0400 Body temperature 98 [degF] DO Charly Ball Work Phone: [facility] 02-17-2024 08:48-0400 Body weight 104.77 kg DO Charly Ball Work Phone: [facility] 02-17-2024 08:48-0400 Diastolic blood pressure 87 mm[Hg] DO Charly Ball Work Phone: [facility] 02-17-2024 08:48-0400 Heart rate 65 /min DO Charly Ball Work Phone: [facility] 02-17-2024 08:48-0400 Respiratory rate 18 /min DO Charly Ball Work Phone: [facility] 02-17-2024 08:48-0400 SaO2% (BldA) [Mass fraction] 97 % DO Charly Ball Work Phone: [facility] 02-17-2024 08:48-0400 Systolic blood pressure 133 mm[Hg] DO Charly Ball Work Phone: [facility] 02-10-2024 16:37-0400 Body height 177.8 cm DO Charly Ball Work Phone: [facility] 02-10-2024 08:00-0400 Body temperature 97.3 [degF] DO Charly Ball Work Phone: [facility] 02-10-2024 08:00-0400 Body weight 108.13 kg DO Charly Ball Work Phone: [facility] 02-10-2024 08:00-0400 Diastolic blood pressure 71 mm[Hg] DO Charly Ball Work Phone: [facility] 02-10-2024 08:00-0400 Heart rate 64 /min DO Charly Ball Work Phone: [facility] 02-10-2024 08:00-0400 Respiratory rate 18 /min DO Charly Ball Work Phone: [facility] 02-10-2024 08:00-0400 SaO2% (BldA) [Mass fraction] 98 % DO Charly Ball Work Phone: [facility] 02-10-2024 08:00-0400 Systolic blood pressure 108 mm[Hg] DO Charly Ball Work Phone: [facility] 02-05-2024 16:49-0400 Body height 177.8 cm DO Charly Ball Work Phone: [facility] 02-03-2024 09:13-0400 Body weight 109.3 kg DO Charly Ball Work Phone: [facility] 02-03-2024 08:33-0400 Body temperature 98.2 [degF] DO Charly Ball Work Phone: [facility] 02-03-2024 08:33-0400 Body weight 109.31 kg DO Charly Ball Work Phone: [facility] 02-03-2024 08:33-0400 Diastolic blood pressure 76 mm[Hg] DO Charly Ball Work Phone: [facility] 02-03-2024 08:33-0400 Heart rate 63 /min DO Charly Ball Work Phone: [facility] 02-03-2024 08:33-0400 Respiratory rate 18 /min DO Charly Ball Work Phone: [facility] 02-03-2024 08:33-0400 SaO2% (BldA) [Mass fraction] 98 % DO Charly Ball Work Phone: [facility] 02-03-2024 08:33-0400 Systolic blood pressure 117 mm[Hg] DO Charly Ball Work Phone: [facility] 01-27-2024 15:50-0400 Body height 177.8 cm DO Charly Ball Work Phone: [facility] 01-27-2024 08:05-0400 Body temperature 98.5 [degF] DO Charly Ball Work Phone: [facility] 01-27-2024 08:05-0400 Body weight 112.3 kg DO Charly Ball Work Phone: [facility] 01-27-2024 08:05-0400 Diastolic blood pressure 80 mm[Hg] DO Charly Ball Work Phone: [facility] 01-27-2024 08:05-0400 Heart rate 66 /min DO Charly Ball Work Phone: [facility] 01-27-2024 08:05-0400 Respiratory rate 20 /min DO Charly Ball Work Phone: [facility] 01-27-2024 08:05-0400 SaO2% (BldA) [Mass fraction] 94 % DO Charly Ball Work Phone: [facility] 01-27-2024 08:05-0400 Systolic blood pressure 128 mm[Hg] DO Charly Ball Work Phone: [facility] 01-20-2024 08:41-0400 Diastolic blood pressure 70 mm[Hg] DO Charly Ball Work Phone: [facility] 01-20-2024 08:41-0400 Heart rate 54 /min DO Charly Ball Work Phone: [facility] 01-20-2024 08:41-0400 Respiratory rate 16 /min DO Charly Ball Work Phone: [facility] 01-20-2024 08:41-0400 SaO2% (BldA) [Mass fraction] 95 % DO Charly Ball Work Phone: [facility] 01-20-2024 08:41-0400 Systolic blood pressure 122 mm[Hg] DO Charly Ball Work Phone: [facility] 01-20-2024 08:11-0400 Inhaled oxygen flow rate 6 L/min DO Charly Ball Work Phone: [facility] 01-20-2024 06:29-0400 Body height 177.8 cm DO Charly Ball Work Phone: [facility] 01-20-2024 06:29-0400 Body mass index (BMI) [Ratio] 35.9 kg/m2 DO Charly Ball Work Phone: [facility] 01-20-2024 06:29-0400 Body weight 113.39 kg DO Charly Ball Work Phone: [facility] 01-20-2024 05:52-0400 Body temperature 98.5 [degF] DO Charly Ball Work Phone: [facility] 01-12-2024 14:28-0400 Body height 177.8 cm DO Charly Ball Work Phone: [facility] 01-12-2024 14:28-0400 Body mass index (BMI) [Ratio] 34.9 kg/m2 DO Charly Ball Work Phone: [facility] 01-12-2024 14:28-0400 Body weight 110.67 kg DO Charly Ball Work Phone: [facility] 01-12-2024 14:28-0400 Diastolic blood pressure 80 mm[Hg] DO Charly Ball Work Phone: [facility] 01-12-2024 14:28-0400 Systolic blood pressure 126 mm[Hg] DO Charly Ball Work Phone: [facility] 01-07-2024 13:05-0400 Body height 177.8 cm DO Charly Ball Work Phone: [facility] 01-07-2024 13:05-0400 Body mass index (BMI) [Ratio] 35.9 kg/m2 DO Charly Ball Work Phone: [facility] 01-07-2024 13:05-0400 Body weight 113.39 kg DO Charly Ball Work Phone: [facility] 01-07-2024 13:05-0400 Diastolic blood pressure 87 mm[Hg] DO Charly Ball Work Phone: [facility] 01-07-2024 13:05-0400 Heart rate 69 /min DO Charly Ball Work Phone: [facility] 01-07-2024 13:05-0400 Respiratory rate 18 /min DO Charly Ball Work Phone: [facility] 01-07-2024 13:05-0400 SaO2% (BldA) [Mass fraction] 97 % DO Charly Ball Work Phone: [facility] 01-07-2024 13:05-0400 Systolic blood pressure 149 mm[Hg] DO Charly Ball Work Phone: [facility] 12-25-2023 12:15-0400 Diastolic blood pressure 91 mm[Hg] DO Charly Ball Work Phone: [facility] 12-25-2023 12:15-0400 Heart rate 57 /min DO Charly Ball Work Phone: [facility] 12-25-2023 12:15-0400 Respiratory rate 16 /min DO Charly Ball Work Phone: [facility] 12-25-2023 12:15-0400 SaO2% (BldA) [Mass fraction] 94 % DO Charly Ball Work Phone: [facility] 12-25-2023 12:15-0400 Systolic blood pressure 150 mm[Hg] DO Charly Ball Work Phone: [facility] 12-25-2023 11:35-0400 Body temperature 97 [degF] DO Charly Ball Work Phone: [facility] 12-25-2023 11:12-0400 Inhaled oxygen flow rate 8 L/min DO Charly Ball Work Phone: [facility] 12-25-2023 10:12-0400 Body height 176.53 cm DO Charly Ball Work Phone: [facility] 12-25-2023 10:12-0400 Body mass index (BMI) [Ratio] 37.2 kg/m2 DO Charly Ball Work Phone: [facility] 12-25-2023 10:12-0400 Body weight 116 kg DO Charly Ball Work Phone: [facility] 11-13-2023 08:05-0400 Body height 180.34 cm [facility] 11-13-2023 08:05-0400 Body mass index (BMI) [Ratio] 35.1 kg/m2 [facility] 11-13-2023 08:05-0400 Body weight 114.3 kg [facility] 11-13-2023 08:05-0400 Diastolic blood pressure 80 mm[Hg] [facility] 11-13-2023 08:05-0400 Heart rate 71 /min [facility] 11-13-2023 08:05-0400 SaO2% (BldA) [Mass fraction] 98 % [facility] 11-13-2023 08:05-0400 Systolic blood pressure 132 mm[Hg] [facility] 08-18-2023 10:31-0500 Blood Pressure Location Abner MONIQUE [facility] 08-18-2023 10:31-0500 Diastolic blood pressure 86 mm[Hg] Abner MONIQUE [facility] 08-18-2023 10:31-0500 Heart rate 84 /min Abner MONIQUE [facility] 08-18-2023 10:31-0500 Respiratory rate 16 /min Abner MONIQUE [facility] 08-18-2023 10:31-0500 Systolic blood pressure 132 mm[Hg] Abner MONIQUE [facility] 08-09-2022 09:21-0500 Blood Pressure Location Abnertania MONIQUE [facility] 08-09-2022 09:21-0500 Diastolic blood pressure 83 mm[Hg] Abner MONIQUE [facility] 08-09-2022 09:21-0500 Heart rate 70 /min Abner MONIQUE [facility] 08-09-2022 09:21-0500 Respiratory rate 16 /min Abnertania MONIQUE [facility] 08-09-2022 09:21-0500 Systolic blood pressure 129 mm[Hg] Abnertania MONIQUE [facility] Encounters Encounter Date Encounter Type Care Provider Facility Start: 08-16-2024 ambulatory Abner Medeirosi ty:[facility] Start: 03-08-2024 Non-patient / Non-visit DO Riaz Hooper Work Phone: [facility] Work Phone: Start: 03-08-2024 End: 03-08-2024 Patient encounter procedure DO Charly Hooper Work Phone: [facility] Start: 03-08-2024 End: 03-08-2024 ambulatory Mili Squires Facility:[facility] Start: 03-05-2024 ambulatory Charly Hooper Facility: [facility] Start: 03-05-2024 Registered Recurring DO Benjam in Ball Work Phone: [facility] Work Phone: Start: 03-03-2024 Non-patient / Non-visit DO Riaz auin Ball Work Phone: [facility] Work Phone: Start: 03-01-2024 Registered Recurring DO Benjam in Ball Work Phone: [facility] Acute Work Phone: Start: 03-01-2024 Non-patient / Non-visit DO Riaz foy Ball Work Phone: [facility] Palliative Care Work Phone: Start: 03-01-2024 End: 03-01-2024 Patient encounter procedure DO Charly Ball Work Phone: [facility] Palliative Start: 03-01-2024 End: 03-01-2024 ambulatory DO Charly Ball Work Phone: [facility] Work Phone: Start: 02-25-2024 End: 02-25-2024 ambulatory DO Charly Ball Work Phone: [facility] Work Phone: Start: 02-25-2024 End: 02-25-2024 Patient encounter procedure DO Charly Ball Work Phone: [facility] Work Phone: Start: 02-25-2024 Registered Recurring DO Benjam in Ball Work Phone: [facility] Work Phone: Start: 02-25-2024 Non-patient / Non-visit DO Riaz foy Ball Work Phone: [facility] Work Phone: Start: 02-24-2024 ambulatory Marbella Dennisi lity:[facility] Start: 02-24-2024 Registered Recurring DO Benjam in Ball [facility] [place] Start: 02-23-2024 Registered Recurring DO Benjam in Ball Work Phone: [facility] Work Phone: Start: 02-23-2024 Non-patient / Non-visit DO Riaz foy Ball Work Phone: [facility]iative [facility] Work Phone: Start: 02-23-2024 End: 02-23-2024 Patient encounter procedure DO Charly Hooper Work Phone: [facility] Palliative Start: 02-23-2024 End: 02-23-2024 ambulatory DO Charly Ball Work Phone: [facility] Work Phone: Start: 02-18-2024 Non-patient / Non-visit DO Riaz foy Ball Work Phone: [facility] Work Phone: Start: 02-17-2024 End: 02-17-2024 ambulatory DO Charly Hooper Work Phone: [facility] Work Phone: Start: 02-17-2024 End: 02-17-2024 Patient encounter procedure DO Charly Hooper Work Phone: [facility] Work Phone: Start: 02-17-2024 Registered Recurring DO Benjam in Ball Work Phone: [facility] Work Phone: Start: 02-16-2024 Registered Recurring DO Benjam in Ball Work Phone: [facility] Work Phone: Start: 02-16-2024 Non-patient / Non-visit DO Riaz danii Ball Work Phone: [facility] Palliative Care Work Phone: Start: 02-16-2024 End: 02-16-2024 Patient encounter procedure DO Charly Hooper Work Phone: [facility] Palliative Start: 02-16-2024 End: 02-16-2024 ambulatory DO Charly Hooper Work Phone: [facility] Work Phone: Start: 02-11-2024 Non-patient / Non-visit DO Riaz Hooper Work Phone: [facility] Work Phone: Start: 02-10-2024 Registered Recurring DO Benjam in Ball Work Phone: [facility] Start: 02-09-2024 Registered Recurring DO Benjam in Ball Work Phone: [facility] Work Phone: Start: 02-09-2024 Non-patient / Non-visit DO Riaz Hooper Work Phone: [facility] Work Phone: Start: 02-09-2024 End: 02-09-2024 Patient encounter procedure DO Charly Hooper Work Phone: [facility] Start: 02-09-2024 End: 02-09-2024 ambulatory DO Charly Hooper Work Phone: [facility] Work Phone: Start: 02-04-2024 Non-patient / Non-visit DO Riaz Hooper Work Phone: [facility] Work Phone: Start: 02-03-2024 Registered Recurring DO Benjam in Ball Work Phone: [facility] Start: 02-03-2024 Registered Recurring DO Benjam in Ball Work Phone: [facility] Work Phone: Start: 02-03-2024 End: 02-03-2024 ambulatory DO Charly Ball Work Phone: [facility] Work Phone: Start: 02-03-2024 End: 02-03-2024 Patient encounter procedure DO Charly Ball Work Phone: [facility] Work Phone: Start: 02-02-2024 Registered Recurring DO Benjam in Ball Work Phone: [facility] Work Phone: Start: 02-02-2024 Non-patient / Non-visit DO Riaz danii Ball Work Phone: [facility] Work Phone: Start: 02-02-2024 Non-patient / Non-visit DO Riaz danii Ball Work Phone: [facility] Work Phone: Start: 02-02-2024 End: 02-02-2024 Patient encounter procedure DO Charly Hooper Work Phone: [facility] Palliative Start: 02-02-2024 End: 02-02-2024 ambulatory DO Charly Ball Work Phone: [facility] Work Phone: Start: 01-28-2024 End: 01-28-2024 ambulatory MACARENA CONDON V Not Available Start: 01-28-2024 Non-patient / Non-visit DO Riaz danii Ball Work Phone: [facility] Work Phone: Start: 01-27-2024 Non-patient / Non-visit DO Riaz danii Ball Work Phone: [facility] Work Phone: Start: 01-27-2024 Non-patient / Non-visit DO Riaz foy Ball Work Phone: [facility] Work Phone: Start: 01-27-2024 End: 01-27-2024 Patient encounter procedure DO Charly Hooper Work Phone: [facility] Start: 01-27-2024 End: 01-27-2024 ambulatory DO Charly Hooper Work Phone: [facility] Work Phone: Start: 01-27-2024 Registered Recurring DO Benjam in Ball Work Phone: [facility] Work Phone: Start: 01-21-2024 Non-patient / Non-visit DO Riaz foy Ball Work Phone: [facility] Work Phone: Start: 01-20-2024 End: 01-20-2024 Admission to same day surgery center DO [facility]arly Hooper [facility] [place] Start: 01-20-2024 End: 01-20-2024 ambulatory DO Charly Hooper Work Phone: [facility] Work Phone: Start: 01-14-2024 End: 01-14-2024 ambulatory NOHEMI HUDSON Not Available Start: 01-14-2024 End: 01-14-2024 ambulatory JYOTI GRIFFIN Not Available Start: 01-14-2024 Registered Recurring DO Rochelleam in Ball [facility] Phone[facility] [place] [facility] Work Phone: Start: 01-13-2024 Non-patient / Non-visit DO Riaz foy Ball Work Phone: [facility] Work Phone: Start: 01-12-2024 End: 01-12-2024 ambulatory DO Charly Ball Work Phone: [facility] Work Phone: Start: 01-12-2024 End: 01-12-2024 Patient encounter procedure DO Charly Ball Work Phone: [facility] Work Phone: Start: 01-07-2024 End: 01-07-2024 ambulatory DO Charly Ball Work Phone: [facility] Work Phone: Start: 01-07-2024 End: 01-07-2024 Patient encounter procedure DO Charly Ball Work Phone: [facility] Work Phone: Start: 01-07-2024 Registered Recurring DO Leobardo in Ball [facility] Work Phone: Start: 12-31-2023 End: 12-31-2023 ambulatory CHARLY W MURCEK Not Available Start: 12-26-2023 End: 12-26-2023 ambulatory CHARLY W MURCEK Not Available Start: 12-25-2023 End: 12-25-2023 Admission to same day surgery center DO Charly Ball Work Phone: [facility] [place] Start: 12-25-2023 End: 12-25-2023 ambulatory DO Charly Ball Work Phone: [facility] Work Phone: Start: 12-24-2023 End: 12-24-2023 Patient encounter procedure DO Charly Ball Work Phone: [facility] Work Phone: Start: 12-24-2023 End: 12-24-2023 ambulatory DO Charly Ball Work Phone: [facility] Work Phone: Start: 12-23-2023 End: 12-23-2023 Patient encounter procedure DO Charly Ball Work Phone: [facility] Work Phone: Start: 12-23-2023 End: 12-23-2023 ambulatory DO Charly Hooper Work Phone: [facility] Work Phone: Start: 12-23-2023 Encounter for preprocedural laboratory examination Charly Nowak [facility] Start: 12-22-2023 End: 12-22-2023 ambulatory CHARLY NOWAK Not Available Start: 12-17-2023 End: 12-17-2023 ambulatory MATEO ESTEVES Not Available Start: 11-13-2023 End: 11-13-2023 ambulatory [facility] Work Phone: Start: 11-13-2023 End: 11-13-2023 Patient encounter procedure [facility] Work Phone: Start: 10-13-2023 End: 10-13-2023 ambulatory ROGERS B APLING Not Available Start: 10-08-2023 End: 10-08-2023 ambulatory ROGERS B APLING Not Available Start: 08-18-2023 End: 08-19-2023 ambulatory Abner MONIQUE Facility:[facility] Start: 08-18-2023 End: 08-18-2023 Patient encounter procedure Abner MONIQUE [facility] Start: 06-18-2023 End: 06-18-2023 ambulatory ROGERS B APLING Not Available Start: 06-04-2023 End: 06-04-2023 ambulatory ROGERS B APLING Not Available Start: 05-07-2023 End: 05-07-[address] [facility] Start: 04-09-2023 End: 04-09-[address] [facility] Start: 09-25-2022 End: 09-25-[address] [facility] Start: 08-09-2022 End: 08-09-2022 Patient encounter procedure Abner MONIQUE [facility] Start: 07-16-2022 End: 07-17-[address] ABNER MONIQUE Facility:[facility] Start: 05-08-2022 End: 05-09-2022 ambulatory STELLA ATWOOD Facility:[facility] Start: 03-20-2022 End: 03-21-2022 ambulatory CHARLY HOOPER Facility:[facility] Start: 2022 Encounter for preprocedural laboratory examination THEO VIRGEN [facility] Start: 03-18-2022 End: [address] CHARLY HOOPER Facility:[facility] Start: 03-18-2022 End: 2022 Encounter for preprocedural laboratory examination DR CHARLY HOOPER Facility:[facility] Start: 03-05-2022 End: 03-06-2022 ambulatory CHARLY HOOPER Facility:[facility] Start: 12-27-2021 End: 12-28-[address] CHARLY HOOPER Facility:[facility] Start: 08-14-2021 End: 08-15-[address] CHARLY HOOPER Facility:[facility] Procedures Date Procedure Procedure Detail Performing Clinician Start: 01-20-2024 Plain chest X-ray DO Be njmk Luca Work Phone: Start: 01-20-2024 OR Infusaport Insertion/Removal (Not Applicable) DO Charly Hooper Work Phone: Start: 12-25-2023 Direct laryngoscopy with biopsy DO Charly Hooper Work Phone: Start: 12-24-2023 Positron emission to mography with computed tomography DO Charly Hooper Work Phone: Start: 07-16-[address] INOCENCIO MONIQUE Comment on above: Performed By: #### P SAD #### [facility] [address] [place] [address] Dr. Edilson Iyer Start: 09-09-2019 Implantation of radi oactive seed into prostate Abner MONIQUE Start: 07-20-2019 Transrectal biopsy o f prostate using ultrasound guidance Abner MONIQUE Start: 08-11-2018 Transrectal biopsy o f prostate using ultrasound guidance Abner MONIQUE Cardiac ablation usi ng fluoroscopy guidance Abner MONIQUE Cholecystectomy Abner DENTON Decompression of med danyel nerve Abner MONIQUE History of hernia repair Maria Elena MONIQUE Vasectomy Abner MONIQUE Plan of Treatment Date Care Activity Detail Author Start: 03-02-2024 Patient referral to dietitian [facility] Start: 03-02-2024 [facility] Start: 02-25-2024 [facility] Start: 02-24-2024 [facility] Start: 02-19-2024 [facility] Start: 02-17-2024 Comprehensive metabo lic 1999 panel - Serum or Plasma [facility] Start: 02-17-2024 End: 02-18-2024 [facility] Start: 02-16-2024 [facility] Start: 02-10-2024 [facility] Start: 02-03-2024 [facility] Start: 01-27-2024 [facility] Start: 01-20-2024 [facility] Start: 01-20-2024 [facility] Start: 01-07-2024 Patient referral [facility] Work Phone: Start: 12-25-2023 [facility] Start: 12-25-2023 [facility] Albumin/Globulin ratio [facility] Anion gap measurement [facility] Basophils [#/volume] in Blood by Automated count [facility] Basophils/100 leukoc ytes in Blood by Automated count [facility] Comprehensive metabo lic 1999 panel - Serum or Plasma [facility] Comprehensive metabo lic 1999 panel - Serum or Plasma [facility] Comprehensive metabo lic 1999 panel - Serum or Plasma [facility] Comprehensive metabo lic 1999 panel - Serum or Plasma [facility] Comprehensive metabo lic 1999 panel - Serum or Plasma [facility] Computed tomography for radiotherapy planning [facility] Eosinophils/100 leuk ocytes in Blood by Automated count [facility] Erythrocyte distribu tion width [Ratio] by Automated count [facility] Erythrocytes [#/volume] in Blood [facility] Globulin [Mass/volume] in Serum [facility] Hematocrit [Volume F raction] of Blood [facility] Hemoglobin [Mass/vol ume] in Blood [facility] Leukocytes [#/volume ] corrected for nucleated erythrocytes in Blood by Automated coun [facility] Leukocytes [#/volume] in Blood [facility] Lymphocytes [#/volum e] in Blood by Automated count [facility] Lymphocytes/100 leuk ocytes in Blood by Automated count [facility] MCH [Entitic mass] b y Automated count [facility] MCHC [Mass/volume] b y Automated count [facility] MCV [Entitic volume] by Automated count [facility] Monocytes [#/volume] in Blood by Automated count [facility] Monocytes/100 leukoc ytes in Blood by Automated count [facility] Neutrophils [#/volum e] in Blood by Automated count [facility] Neutrophils/100 leuk ocytes in Blood by Automated count [facility] Nucleated erythrocyt es [Presence] in Blood by Automated count [facility] Patient Education [facility] Work Phone: Patient referral [facility] Work Phone: Platelet mean volume [Entitic volume] in Blood by Automated count [facility] Platelets [#/volume] in Blood [facility] US Heart [facility] US Thyroid gland [facility] Immunizations Immunization Date Immunization Notes Care Provider Fa licha 04-04-2022 COVID-19 mRNA Bivale nt Booster (Pfizer) DO Charly Hooper Work Phone: [facility] 05-05-2021 COVID-19 mRNA, Comirnaty (Pfizer) DO Charly Hooper Work Phone: [facility] 11-03-2020 COVID-19, mRNA, LNP- S, PF, 30 mcg/0.3 mL dose Abner MONIQUE [facility] Comment on above: Reason for Medicatio n: Prophylaxis 09-22-2020 COVID-19, mRNA, LNP- S, PF, 30 mcg/0.3 mL dose Abner MONIQUE [facility] Comment on above: Reason for Medicatio n: Prophylaxis 07-04-2020 diphtheria, tetanus toxoids and acellular pertussis vaccine, unspecified formulation [facility] 07-04-2020 tetanus toxoid, redu devonte diphtheria toxoid, and acellular pertussis vaccine, adsorbed DO Charly [employer] Work Phone: [facility] 05-03-2020 influenza, seasonal, injectable DO [employer] Work Phone: [facility] 04-20-2020 influenza, injectabl e, quadrivalent, preservative free DO [employer] Work Phone: [facility] 04-20-2019 influenza virus vaccine, live, attenuated, for intranasal use Abner [employer] [facility] 04-29-2018 influenza virus vaccine, unspecified formulation [facility] Payers Date Payer Category Payer Self-pay 2022 Unknown [id number] 2022 Unknown [id number] 2019 Unknown [id number] 1966 Unknown [id number] 2.16.8 40.1.008552.3.579.2.647 1966 Unknown [id number] 2.16.8 40.1.680274.3.579.2.647 1966 Unknown [id number] 2.16.84 0.1.378654.3.579.2.593 1966 Unknown [id number] 2.16.84 0.1.387778.3.579.2.593 1966 Unknown [id number] 2.16.84 0.1.097824.3.579.2.593 1966 Unknown [id number] 2.16.84 0.1.554423.3.579.2.593 1966 Unknown [id number] 2.16.84 0.1.240128.3.579.2.593 1966 Unknown [id number] 2.16.8 40.1.615170.3.579.2.727 1966 Unknown [id number] 2.16.8 40.1.887476.3.579.2.727 1966 Unknown [id number] 2.16.84 0.1.092897.3.579.2.1259 1966 Unknown [id number] 2.16.84 0.1.940811.3.579.2.1259 1966 Unknown [id number] 2.16.84 0.1.594200.3.579.2.1259 1966 Unknown [id number] 2.16.84 0.1.343128.3.579.2.1259 1966 Unknown [id number] 2.16.84 0.1.285796.3.579.2.1259 1966 Unknown [id number] 2.16.84 0.1.810770.3.579.2.1259 1966 Unknown [id number] 2.16.84 0.1.163905.3.579.2.1259 1966 Unknown [id number] 2.16.84 0.1.001645.3.579.2.1259 1966 Unknown [id number] 2.16.84 0.1.462473.3.579.2.1259 1966 Unknown [id number] 2.16.84 0.1.532204.3.579.2.1259 1966 Unknown [id number] 2.16.840 .1.683601.3.579.2.1259 1966 Unknown [id number] 2.16.840. 1.483521.3.579.2.1259 1959 Unknown [id number] Unknown [place] [employer] [id number] Unknown [place] [employer] [id number] Unknown [id number] 2.16.8 40.1.601238.3.579.2.531 Unknown [id number] 2.16.8 40.1.026196.3.579.2.531 Unknown [id number] 2.16.8 40.1.656308.3.579.2.531 Unknown [id number] 2.16.8 40.1.049487.3.579.2.531 Unknown [id number] 2.16.8 40.1.218491.3.579.2.531 Unknown [id number] 2.16.8 40.1.882186.3.579.2.531 Unknown [id number] 2.16.8 40.1.719459.3.579.2.531 Unknown [id number] 2.16.8 40.1.915855.3.579.2.531 Unknown [id number] 2.16.8 40.1.899075.3.579.2.531 Unknown [id number] 2.16.8 40.1.147959.3.579.2.531 Unknown [id number] 2.16.8 40.1.920258.3.579.2.531 Unknown [id number] 2.16.8 40.1.987507.3.579.2.531 Unknown [id number] 2.16.8 40.1.341091.3.579.2.531 Social History Date Type Detail Facility Start: 07-19-2020 End: 03-08-2024 Tobacco smoking status Ex-smoker (finding) [facility] Tobacco smoking status Never [facility] Sex Assigned At Male [facility] Start: 11-13-2023 Tobacco smoking stat us NHIS Never smoked tobacco (finding) [facility] Start: 1965 Sex Assigned At Male F [facility] Medical Equipment Procedure Code Equipment Code Equipment Origin al Text Equipment Identifier Dates Insertion of central venous catheter (CVC) with subcutaneous port for chemotherapy Vascular port/catheter ([id number] FDA Start: 01-20-2024 Goals Date Patient Goal Desired Activity /State Functional Status Date Assessment Result Facility 08-18-2023 Functional Status N/A [facility] 08-09-2022 Functional Status N/A [facility] Clinical Notes 08-14-2021 to 03-08-2024 Note Date & Type Note Facility 03-08-2024 Progress note Note Date/Time March 08, 2024 9:14am [facility] [address] [place] [address] Palliative Medicine Encounter Patient: Alen Calderon MR#: [id number] : 1965 Acct:[id number] Age/Sex: 58 / M Copies to: DO Mili Light APRN~ HPI Date of Visit Date of Visit: 03/08/2024 Chief Complaint: Alen is here for one week follow up at time of radiation. His last day is 03/11/24 () He was to continue Tramadol PRN and Cyclobenzaprine at lastoffice visit. HPI: Alen is seen and examined; interim period and pertinent symptoms reviewed below and detailed in ESAS: Doing OK - pain is manageable, tolerable - using meds only when needed for pain and sleep including tetracaine pops, tramadol, cyclobenzaprine and xyliments drymouth melts Using Magic Mouthwash and sucralfate routinely Has had progressive weight loss but maintains a good intake of some food and fluids Looks forward to completing therapy on Friday Intake Allergies acetaminophen [Percocet] Allergy (Unknown, Verified 03/08/24 09:16) rash oxycodone [Percocet] Allergy (Unknown, Verified 03/08/24 09:16) rash Home Medications Medication Instructions Recorded Confirmed amiodarone 200 mg tablet 200 mg PO .every other day a fib 12/23/23 02/17/24 amlodipine 10 mg tablet 10 mg PO QAM htn 12/23/23 02/17/24 apixaban 5 mg tablet (Eliquis) 5 mg PO BID anticoagulation 12/23/23 02/17/24 carvedilol 25 mg tablet 25 mg PO BID 12/23/23 02/17/24 furosemide 40 mg tablet 40 mg PO QAM 12/23/23 02/17/24 losartan 100 mg tablet 100 mg PO QAM 12/23/23 02/17/24 mometasone 0.1 % topical cream 1 applic topical DAILY #45 grams 01/07/24 02/17/24 ondansetron 8 mg disintegrating 8 mg PO Q8HR PRN nausea and 01/07/24 02/17/24 tablet vomiting #30 tabs prochlorperazine maleate 10 mg 10 mg PO Q6HR PRN nausea and 01/07/24 02/17/24 tablet (Compazine) vomiting #30 tabs ibuprofen 600 mg tablet 600 mg PO Q4-6H PRN pain 3 days 01/20/24 02/17/24 #14 tabs omeprazole 20 mg capsule,delayed See Rx Instructions .Route 01/21/24 02/17/24 release .COMPLEX #90 caps Magic Mouthwash w/Lidocaine 240 mL 5 ml PO QID PRN mouth irritation 01/28/24 02/17/24 Bottle 240 mL bottle #240 mL morphine 10 mg/5 mL oral solution 5 mg (2.5 mL) PO Q4-6H PRN pain 10 02/02/24 02/17/24 days #100 mL trazodone 50 mg tablet See Rx Instructions .Route 02/05/24 02/17/24 .COMPLEX #90 tabs tramadol 50 mg tablet 50 mg PO Q6HR PRN pain 15 days #60 02/16/24 02/17/24 tabs cyclobenzaprine 10 mg tablet 10 mg PO QHS #30 tabs 02/19/24 sucralfate 100 mg/mL oral 1 g (10 mL) PO BID #300 mL 08/12/24 suspension Is patient having pain?: Yes PMFSH Medical History 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 Chemotherapy/Radiation therapy Paroxysmal atrial fibrillation MARYANN (obstructive sleep apnea) Obesity, unspecified Malignant neoplasm of prostate (07/21/18) s/p radioactive seeds Hyperlipidemia, unspecified (05/21/18) Hyperglycemia, unspecified (05/22/18) GERD (gastroesophageal reflux disease) Essential (primary) hypertension Elevated prostate specific antigen (PSA) (05/29/17) Asymptomatic varicose veins of bilateral lower extremities Surgical History History of cardiac radiofrequency ablation (RFA) History of umbilical hernia repair History of carpal tunnel release of both wrists History of vasectomy History of arthroscopy of knee Family History Father Prostate cancer Mother Cancer Legacy FamHx Problem: Diagnosed with Cancer Social History Smoking Status: Former smoker Tobacco Type: cigarettes Substance Use Type: Alcohol Substance Abuse Comment: 6-8 beers daily [place] Symptom Assessment Scale Pain: moderate mouth pain, tolerable using Magic Mouthwash and Sucralfate as instructed Nausea/Vomiting: denies Anorexia: fair appetite/ continues to lose weight slowly 210# today Dyspnea: denies Constipation/Diarrhea: stable Drowsiness: denies Fatigue: moderate / pushing through Insomnia: stable Depression/Mood: stable Anxiety: stable Exam Exam General - A&O, weight loss apparent, unaccompanied HEENT - EOM intact, ulcerated area R side of tongue Lungs - normal respiratory effort Abdomen - soft, non-tender, + BS Extremities - normal ROM, no edema Psychiatric - pleasant, cooperative, normal mood/affect Assessment & Plan Assessment & Plan (1) Cancer associated pain: Plan: Getting through concurrent chemoradiation with minimal use of opioid and non-opioid medication. Mouth and right side of tongue is the site of worst pain yet he is only using tetracaine pops and tramadol infrequently. Continue Tramadol PRN Advised to call palliative office pain/symptoms escalate following completion of therapy (2) Acute insomnia: Plan: Using cyclobenzaprine only when needed (3) Oropharyngeal cancer: Problem Comment: Dx: 12/2023 Chemotherapy/Radiation therapy Plan: Completes concurrent chemoradiation this week Attestation: The above note written by Nathalie Angel MA acting as human recorder, note dictated by Mili Squires APRN, ARBOREAL SCIENTIST-C Dictated By: Mili Squires APRN DD/ 5 Signed By: <Electronically signed by MIGUEL Squires> 03/08/24 0957 [facility] Work Phone: 1(519) 431-949208-12-2024 Progress note Author Mili Squires [facility] March 01, 2024 9:47am Note Date/Time March 01, 2024 9: 16am [facility] [address] [place] [address] Palliative Medicine Encounter Patient: Alen Calderon MR#: [id number] : 1965 Acct:[id number] Age/Sex: 58 / M Copies to: Charly Hooper,DO Mili Squires APRN~ HPI Date of Visit Date of Visit: 03/01/2024 Chief Complaint: Alen is here for one week follow up at time of radiation. He was to continue Cyclobenzaprine 10 mg at bedtime and Morphine or Tramadol PRN at last office visit. HPI: Alen is seen and examined; interim period and pertinent symptoms reviewed below and detailed in ESAS: Kind of a rough weekend, mild nausea, lots of fatigue Using tetracaine pops to the right side of the tongue with some some relief, also using Magic Mouthwash routinely; found OTC buccal tablet to help thin secretions - this has really helped Using tylenol for pain, tried MSIR once and had constipation, not using anymore Has no appetite and has lost most of his taste Tomorrow is last chemo Intake Allergies acetaminophen [Percocet] Allergy (Unknown, Verified 03/01/24 07:53) rash oxycodone [Percocet] Allergy (Unknown, Verified 03/01/24 07:53) rash Home Medications Medication Instructions Recorded Confirmed amiodarone 200 mg tablet 200 mg PO .every other day a fib 12/23/23 02/17/24 amlodipine 10 mg tablet 10 mg PO QAM htn 12/23/23 02/17/24 apixaban 5 mg tablet (Eliquis) 5 mg PO BID anticoagulation 12/23/23 02/17/24 carvedilol 25 mg tablet 25 mg PO BID 12/23/23 02/17/24 furosemide 40 mg tablet 40 mg PO QAM 12/23/23 02/17/24 losartan 100 mg tablet 100 mg PO QAM 12/23/23 02/17/24 mometasone 0.1 % topical cream 1 applic topical DAILY #45 grams 01/07/24 02/17/24 ondansetron 8 mg disintegrating 8 mg PO Q8HR PRN nausea and 01/07/24 02/17/24 tablet vomiting #30 tabs prochlorperazine maleate 10 mg 10 mg PO Q6HR PRN nausea and 01/07/24 02/17/24 tablet (Compazine) vomiting #30 tabs ibuprofen 600 mg tablet 600 mg PO Q4-6H PRN pain 3 days 01/20/24 02/17/24 #14 tabs omeprazole 20 mg capsule,delayed See Rx Instructions .Route 01/21/24 02/17/24 release .COMPLEX #90 caps Magic Mouthwash w/Lidocaine 240 mL 5 ml PO QID PRN mouth irritation 01/28/24 02/17/24 Bottle 240 mL bottle #240 mL morphine 10 mg/5 mL oral solution 5 mg (2.5 mL) PO Q4-6H PRN pain 10 02/02/24 02/17/24 days #100 mL trazodone 50 mg tablet See Rx Instructions .Route 02/05/24 02/17/24 .COMPLEX #90 tabs tramadol 50 mg tablet 50 mg PO Q6HR PRN pain 15 days #60 02/16/24 02/17/24 tabs cyclobenzaprine 10 mg tablet 10 mg PO QHS #30 tabs 02/19/24 sucralfate 100 mg/mL oral 1 g (10 mL) PO BID #300 mL 03/01/24 suspension Is patient having pain?: Yes PMFSH Medical History 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 Chemotherapy/Radiation therapy Paroxysmal atrial fibrillation AMRYANN (obstructive sleep apnea) Obesity, unspecified Malignant neoplasm of prostate (07/21/18) s/p radioactive seeds Hyperlipidemia, unspecified (05/21/18) Hyperglycemia, unspecified (05/22/18) GERD (gastroesophageal reflux disease) Essential (primary) hypertension Elevated prostate specific antigen (PSA) (05/29/17) Asymptomatic varicose veins of bilateral lower extremities Surgical History History of cardiac radiofrequency ablation (RFA) History of umbilical hernia repair History of carpal tunnel release of both wrists History of vasectomy History of arthroscopy of knee Family History Father Prostate cancer Mother Cancer Legacy FamHx Problem: Diagnosed with Cancer Social History Smoking Status: Former smoker Tobacco Type: cigarettes Substance Use Type: Alcohol Substance Abuse Comment: 6-8 beers daily [place] Symptom Assessment Scale Pain: increased mouth and throat pain/ using Tylenol and Motrin and occasionally Tramadol using Tetracaine pops PRN /painful tongue sore Nausea/Vomiting: mild nausea, denies vomiting Anorexia: poor appetite/ lost taste Dyspnea: denies Constipation/Diarrhea: stable Drowsiness: denies Fatigue: increased fatigue/ moderate / resting often Insomnia: stable Depression/Mood: ready for this shit to be over with Anxiety: stable Exam Exam General - A&O, unaccompanied HEENT - EOM intact, ulcerated area R side of tongue Lungs - normal respiratory effort Abdomen - soft, non-tender, + BS Extremities - normal ROM, no edema Psychiatric - pleasant, cooperative, normal mood/affect Assessment & Plan Assessment & Plan (1) Cancer associated pain: Plan: Continue Tylenol/ Motrin PRN without change Has Tramadol on hand if pain not relieved with OTC products, does not want to use MSIR liquid Start baking soda/salt warm water rinse TID (omit salt if solution kaufman tongue ulcer) Start Sucralfate 1 gram BID after mouth rinse Continue Magic Mouthwash routinely and tetracaine pops PRN F/U here one week at time of radiation (2) Oropharyngeal cancer: Problem Comment: Dx: 12/2023 Chemotherapy/Radiation therapy Plan: Continues concurrent chemoradiation Attestation: The above note written by Nathalie Angel MA acting as human recorder, note dictated by Mili Squires APRN, ARBOREAL SCIENTIST-C Dictated By: Mili Squires APRN DD/ Signed By: <Electronically signed by MIGUEL Squires> 03/01/24 0947 [facility] Work Phone: 1(140) 353-753908-07-2024 Progress note Author Karly Nielsen [facility] February 25, 2024 12:51pm Note Date/Time February 25, 2024 12: 07pm [facility] [place] [address] Cancer Center Note Signed Patient: Alen Calderon MR#: [id number] : 1965 Acct:[id number] Age/Sex: 58 / M Type: ANDREW AMB Date of Service: Copies to: Charly Hooper,DO~ Assessment & Plan A/P (1) Oropharyngeal cancer: Plan Alen is a 58-year-old male with stage II, 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 Patient's case has been reviewed at tumor board with recommendations for definitive concurrent chemoradiation therapy. Will obtain hearing test, echocardiogram and plan for weekly Cisplatin in concurrent with radiation. His baseline creatinine is normal 0.9. Will start chemo once radiation is ready to start. Radiation oncology Recommended delivery of 69.96 Webb in 33 fractions to the right tonsil and left neck with delivery of 52.8 Webb to the elective cirilo regions. RTC in 3 weeks on week 2 of treatment for toxicity check. Consent obtained for Cisplatin for now. 02/03/24: He did very well with week #1 of his concurrent chemoradiation. He continues to maintain oral intake and hydration. Labs are reviewed and okay forcontinued treatment. He will receive week #2 cisplatin today with his continuedradiation therapy. We will continue with labs weekly per treatment plan, and hewill follow-up with Dr. Heck in 2 weeks, sooner if needed. 02/17/24: He continues to do well with concurrent chemoradiation, will receive week #4 tomorrow. Labs remain stable and okay for continued treatment. He willfollow-up with Dr. Patiño in 1 week and may call if he has any additional concerns prior to this. 02/25/2024: He came in here after he received with #5 of the weekly cisplatin in regard withthe radiation yesterday 02/24/2024. He complains of slight intermittent drinking in the ears about 3 times a day but no vertigo while on no hearing deficiency orchange in his hearing. He has mild nausea and hot flashes feeling of passing out last week interval of events but he was working out outside in a hot day andfelt better after drinking fluids and coming inside the house or in a car with air conditioning. Patient denied any nausea today or vomiting or diarrhea or bleeding from any source or fevers and denied any shortness of breath or chest pain or dizziness today. He has been drinking about 6-8 bottles of water daily. He has right tongue sore that he is using already Magic swizzle for about 4 times a day and also using swabs given to him by radiation oncology. Plan: He declined the IV fluid and declined nausea today therefore no fluid ordered antiemetics will be given today. Status post week 5 of the cisplatin on 02/24/2024. He wants to limit the number of cisplatin to 6 weeks only. The plan is to give him 6 weeks total of cisplatin. He has 11 days total of radiation left including today. Consider hearing test after chemo and radiation all over. Continue to follow his labs and replace magnesium as needed as his magnesium was1.5 yesterday which was replaced. CHEMO PLAN Treatment Plan Cisplatin 40mg/m2 Weekly with Radiation 1000 Criteria Clinical Indication No Indication Cycle Number Last Admin 1 of 1 Cycle Day Next Admin 30 of 43 No Active Chemotherapy History of Present Illness HPI 58-year-old male presenting with large right-sided neck mass. Patient has a prior history of prostate cancer treated with brachytherapy. December 02, 2023 CT soft tissue neck with contrast showed enlarged mass in the hypopharynx measuring 2.1 cm on the right side. And at least 1 enlarged lymph node at level 2 on the right neck measuring 2.9 cm. December 24, 2023 PET showed a focus of FDG accumulation in the right glossotonsillarsulcus/right lingual tonsil with SUV of 6.5. In the pathologically enlarged lymph nodes in the right level 2A there is a focus of FDG accumulation SUV 7.8. No additional abnormal FDG avid lymph nodes were noted. There are nonspecific cervical lymph nodes in the level 2 and level 3 bilaterally measuring up to 7 mm. Radiation seeds are noted in the prostate bed. December 25, 2023 patient was taken the OR for ultrasound-guided FNA of the right neck mass and right tonsil biopsy. Operative note describes a narrow maxilla and mandible making examination of the right tonsil very difficult. Tonsil was mobile but it was virtually impossible to reach the inferior aspect of the tonsil due to the patient's body habitus. Rec laryngoscopy was attempted again with various size laryngoscope's but it was not possible to transversed the epiglottis because of body habitus. Frozen sections returned consistent with squamous cell. Right tonsil biopsy 12/25/23 revealed moderately to poorly differentiated squamouscell carcinoma nonkeratinizing type, diffusely positive for p16 and p40. FNA also returned positive. December 26, 2023 patient's case was reviewed at our multidisciplinary tumor board with recommendations for concurrent chemoradiation. Patient presented 01/07/24 to our medical oncology clinic for initial consult to discuss treatment options of his right tonsillar cancer. Patient was referred byJOSE Brown for concurrent chemo/radiation. Patient was seen earlier also byradiation oncology. 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 He also states he has mild right hearing loss from the machine guns use in the past. Also he has intermittent ringing in the ears bilaterally. He also has history of Afib and bilateral leg edema of unclear etiology for which he is on Amiodarone, Losartan, lasix 40 mg daily and he is also on Amlodipine 10 mg daily for HTN which can casue leg edema as well. He is scheduled for Simulation on 01/15/24. He denies throat pain or dysphagia and no odynophagia as well. he is eating well. 14 points ROS is obtained and is otherwise negative. 02/03/24: He presents today for toxicity check after initiation of his weekly cisplatin and radiation therapy. He tolerated treatment very well overall. He has some slight fatigue, nothing significant. He did have a little bit of a dull headache after treatment that resolved without intervention. He also notes slight nausea one day that resolved with Zofran. He is eating well and staying hydrated, denies any issues with swallowing but has just started noticing very mild burning in his throat. He is using the Magic mouthwash with relief. He denies any pain, neuropathies, rash, fevers, chills, or other new concerns otherwise. 7/30/24 He presents for week for weekly cisplatin with concurrent radiation therapy. Henotes doing well overall without major concerns. Magic mouthwash is helping with his throat burning, and Tramadol continues to help with his mild throat pain. He notes a very slight ringing in his ears that might last for 5 seconds,which happens maybe 2?3 times per day and is not bothersome at all. He has occasional nausea that is mild, resolved with zofran. Otherwise he is without any new or worsening concerns. 02/25/2024: He came in here after he received with #5 of the weekly cisplatin in regard withthe radiation yesterday 02/24/2024. He complains of slight intermittent drinking in the ears about 3 times a day but no vertigo while on no hearing deficiency orchange in his hearing. He has mild nausea and hot flashes feeling of passing out last week interval of events but he was working out outside in a hot day andfelt better after drinking fluids and coming inside the house or in a car with air conditioning. Patient denied any nausea today or vomiting or diarrhea or bleeding from any source or fevers and denied any shortness of breath or chest pain or dizziness today. He has been drinking about 6-8 bottles of water daily. He has right tongue sore that he is using already Magic swizzle for about 4 times a day and also using swabs given to him by radiation oncology. Intake Vitals/Pain Assessment 02/25/24 12:05 Weight 103.873 kg BP 136/76 Blood Pressure Location Lt brachial Position Sitting Temp 97.6 F Temp Source Temporal Pulse 67 Pulse Source NIBP Respiration 16 Pulse Oximetry (%) 98 Oxygen Delivery Method room air Intake Visit Reasons: Follow Up, follow up visit Allergies acetaminophen [Percocet] Allergy (Unknown, Verified 02/23/24 09:17) rash oxycodone [Percocet] Allergy (Unknown, Verified 02/23/24 09:17) rash Falls Fall Precaution Measures Taken: Patient in chair Nurse's Note: Patient is here today for a follow up visit for oropharyngeal cancer. 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 Chemotherapy/Radiation therapy Paroxysmal atrial fibrillation MARYANN (obstructive sleep apnea) Obesity, unspecified Malignant neoplasm of prostate (07/21/18) s/p radioactive seeds Hyperlipidemia, unspecified (05/21/18) Hyperglycemia, unspecified (05/22/18) GERD (gastroesophageal reflux disease) Essential (primary) hypertension Elevated prostate specific antigen (PSA) (05/29/17) Asymptomatic varicose veins of bilateral lower extremities Surgical History Surgical History History of cardiac radiofrequency ablation (RFA) History of umbilical hernia repair History of carpal tunnel release of both wrists History of vasectomy History of arthroscopy of knee Family History Family History Father Prostate cancer Mother Cancer Legacy FamHx Problem: Diagnosed with Cancer Social History Social History Smoking status: Former smoker Within the past year, how often did you have a drink containing alcohol: 2-4 times a month Within the past year, how many standard drinks containing alcohol did you have on a typical day: 3 or 4 Review of Systems ROS Details: All systems reviewed & no additional complaints except as documented General: Patient denied fevers, chills, rigors, weight loss but has decreased appetite and decreased taste. Head: Patient denied any headaches or vision changes. He continued to have a sore on the right tongue. Thoracic: Patient denied any shortness of breath or cough or hemoptysis Cardiovascular patient denies any chest pain or leg edema GI: Patient denies any nausea vomiting rectal bleed diarrhea : Patient denied gross hematuria. Hematology: Patient denied any bleeding from any source. No easy bruising. Lymphatic: No enlarged LAP anywhere. Skin: Normal skin exam no rashes or suspicious lesions. Neurological patient denies any headache or dizziness or focal weakness or sensory changes today. Physical Exam EXAM HEENT normocephalic atraumatic pupils are equal and round. Continue to have mild sore on the right mid tongue. Neck supple without thyromegaly. Previous ~2cm palpable node on the right side is resolving, nontender to palpation. Chest clear to auscultation bilaterally without wheezing crackles or rhonchi Heart regular rate and rhythm S1-S2 without murmurs gallop or rub Abdomen soft nontender not distended without hepatosplenomegaly or masses clinically Extremities no edema of the lower extremities Skin without any suspicious rashes Neurological exam patient is cooperative alert and oriented x3 no focal deficits. Results - [facility] (Med Onc) LAB RESULTS Corrected WBC 5.7 X10E3/uL (4.1-10.5) 02/23/24 09:48 Hgb 13.3 g/dL (13.0-17.0) 02/23/24 09:48 Hct 37.5 % (38.8-50.0) L 02/23/24 09:48 MCV 93.6 fl (83.5-101) 02/23/24 09:48 RDW 12.2 % (12.0-14.8) 02/23/24 09:48 Plt Count 148 x10E3/uL (150-450) L 02/23/24 09:48 Sodium 136 mmol/L (136-145) 02/23/24 09:48 Potassium 4.0 mmol/L (3.5-5.1) 02/23/24 09:48 BUN 17 mg/dL (7-25) 02/23/24 09:48 Creatinine 1.05 mg/dL (0.70-1.30) 02/23/24 09:48 Glucose 107 mg/dL (70-100) H 02/23/24 09:48 Est GFR (CKD-EPI) > 60.0 mL/Min 02/23/24 09:48 Calcium 9.6 mg/dL (8.6-10.3) 02/23/24 09:48 Total Bilirubin 0.6 mg/dl (0.3-1.0) 02/23/24 09:48 AST 24 U/L (13-39) 02/23/24 09:48 ALT 35 U/L (7-52) 02/23/24 09:48 Alkaline Phosphatase 49 U/L (34-104) 02/23/24 09:48 Total Protein 7.2 gm/dL (6.4-8.9) 02/23/24 09:48 Albumin 4.2 gm/dL (3.5-5.7) 02/23/24 09:48 Total PSA 0.750 ng/mL (0.000-4.000) 02/09/24 09:48 Dictated By: Karly Nielsen MD DD/ 1205 Signed By: <Electronically signed by Karly Nielsen MD> 02/25/24 1250 [facility] Work Phone: [phone]) 799-278908-05-2024 Progress note Author Mili Squires [facility] February 23, 2024 9:46am Note Date/Time February 23, 2024 9:[address] [facility] [address] [place] [address] Palliative Medicine Encounter Patient: Alen Calderon MR#: [id number] : 1965 Acct:[id number] Age/Sex: 58 / M Copies to: DO Mili Light APRN~ HPI Date of Visit Date of Visit: 02/23/2024 Chief Complaint: Alen is here for one week follow up at time of radiation. He was to continue Tramadol 50 mg QID at last office visit. He also complains of insomnia and was started on cyclobenzaprine. HPI: Alen is seen and examined; interim period and pertinent symptoms reviewed below and detailed in ESAS: Pain in the throat is not too bad, able to swallow and eat, has lost taste Nausea is mild, zofran used occasionally effective Improved sleep with addition of cyclobenzaprine last Friday Intake Allergies acetaminophen [Percocet] Allergy (Unknown, Verified 02/23/24 09:17) rash oxycodone [Percocet] Allergy (Unknown, Verified 02/23/24 09:17) rash Home Medications Medication Instructions Recorded Confirmed amiodarone 200 mg tablet 200 mg PO .every other day a fib 12/23/23 02/17/24 amlodipine 10 mg tablet 10 mg PO QAM htn 12/23/23 02/17/24 apixaban 5 mg tablet (Eliquis) 5 mg PO BID anticoagulation 12/23/23 02/17/24 carvedilol 25 mg tablet 25 mg PO BID 12/23/23 02/17/24 furosemide 40 mg tablet 40 mg PO QAM 12/23/23 02/17/24 losartan 100 mg tablet 100 mg PO QAM 12/23/23 02/17/24 mometasone 0.1 % topical cream 1 applic topical DAILY #45 grams 01/07/24 02/17/24 ondansetron 8 mg disintegrating 8 mg PO Q8HR PRN nausea and 01/07/24 02/17/24 tablet vomiting #30 tabs prochlorperazine maleate 10 mg 10 mg PO Q6HR PRN nausea and 01/07/24 02/17/24 tablet (Compazine) vomiting #30 tabs ibuprofen 600 mg tablet 600 mg PO Q4-6H PRN pain 3 days 01/20/24 02/17/24 #14 tabs omeprazole 20 mg capsule,delayed See Rx Instructions .Route 01/21/24 02/17/24 release .COMPLEX #90 caps Magic Mouthwash w/Lidocaine 240 mL 5 ml PO QID PRN mouth irritation 01/28/24 02/17/24 Bottle 240 mL bottle #240 mL morphine 10 mg/5 mL oral solution 5 mg (2.5 mL) PO Q4-6H PRN pain 10 02/02/24 02/17/24 days #100 mL trazodone 50 mg tablet See Rx Instructions .Route 02/05/24 02/17/24 .COMPLEX #90 tabs tramadol 50 mg tablet 50 mg PO Q6HR PRN pain 15 days #60 02/16/24 02/17/24 tabs cyclobenzaprine 10 mg tablet 10 mg PO QHS #30 tabs 02/19/24 Is patient having pain?: Yes PMFSH Medical History 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 Chemotherapy/Radiation therapy Paroxysmal atrial fibrillation MARYANN (obstructive sleep apnea) Obesity, unspecified Malignant neoplasm of prostate (07/21/18) s/p radioactive seeds Hyperlipidemia, unspecified (05/21/18) Hyperglycemia, unspecified (05/22/18) GERD (gastroesophageal reflux disease) Essential (primary) hypertension Elevated prostate specific antigen (PSA) (05/29/17) Asymptomatic varicose veins of bilateral lower extremities Surgical History History of cardiac radiofrequency ablation (RFA) History of umbilical hernia repair History of carpal tunnel release of both wrists History of vasectomy History of arthroscopy of knee Family History Father Prostate cancer Mother Cancer Legacy FamHx Problem: Diagnosed with Cancer Social History Smoking Status: Former smoker Tobacco Type: cigarettes Substance Use Type: Alcohol Substance Abuse Comment: 6-8 beers daily [place] Symptom Assessment Scale Pain: throat pain tolerable, able to swallow and eat but no taste using Tramadol PRN Nausea/Vomiting: intermittent mild nausea, denies vomiting using Zofran ODT PRN Anorexia: losing weight Dyspnea: denies Constipation/Diarrhea: stable Drowsiness: mild Fatigue: moderate fatigue Insomnia: improved on Cyclobenzaprine Depression/Mood: stable Anxiety: stable Exam Exam General - A&O, unaccompanied HEENT - EOM intact, oral mucosa pink/moist Lungs - normal respiratory effort Abdomen - soft, non-tender, + BS Extremities - normal ROM, no edema Psychiatric - pleasant, cooperative, normal mood/affect Assessment & Plan Assessment & Plan (1) Cancer associated pain: Plan: Throat pain is tolerable, using Tramadol PRN, Magic Mouthwash routinely Continue Tramadol PRN without change (2) Acute insomnia: Plan: Reports improvement in sleep with cyclobenzaprine Continue [id number] mg at bedtime (3) Nausea: Plan: Reports mild occasional nausea, relieved with zofran ODT Continue Zofran ODT PRN without change F/U here one week at time of radiation (4) Oropharyngeal cancer: Problem Comment: Dx: 12/2023 Chemotherapy/Radiation therapy Plan: Continues concurrent chemoradiation Attestation: The above note written by Nathalie Angel MA acting as human recorder, note dictated by Mili Squires APRN, ARBOREAL SCIENTIST-C Dictated By: Mili Squires APRN DD/ 6 Signed By: <Electronically signed by MIGUEL Squires> 02/23/24945 [facility] Work Phone: [phone]) 768-629807-29-2024 Progress note Author Mili Squires [facility] February 16, 2024 1:18pm Note Date/Time February 16, 2024 9:[address] [facility] [address] [place] [address] Palliative Medicine Encounter Patient: Alen Calderon MR#: [id number] : 1965 Acct:[id number] Age/Sex: 58 / M Copies to: DO Jill Lightherine Sara Shaw, RN PEDIATRIC~ HPI Date of Visit Date of Visit: 02/16/2024 Chief Complaint: Alen is here for one week follow up at time of radiation. He was to continue Trazodone 50 mg and Magic Mouthwash at last office visit and had Morphine 10 mg/5ml using 2.5 ml every 4-6 hours on hand if needed for pain. HPI: Alen is seen and examined following daily radiation; interim period and pertinent symptoms reviewed below and detailed in ESAS: Reports a little bit of sore throat and thickening of secretions - still using ibuprofen 800 mg, 3-4x day. and tylenol PRN, Magic Mouthwash Jackson fatigued on Friday but the weekend provided good recovery for the past week Intake Allergies acetaminophen [Percocet] Allergy (Unknown, Verified 02/16/24 09:27) rash oxycodone [Percocet] Allergy (Unknown, Verified 02/16/24 09:27) rash Home Medications Medication Instructions Recorded Confirmed amiodarone 200 mg tablet 200 mg PO .every other day a fib 12/23/23 02/03/24 amlodipine 10 mg tablet 10 mg PO QAM htn 12/23/23 02/03/24 apixaban 5 mg tablet (Eliquis) 5 mg PO BID anticoagulation 12/23/23 02/03/24 carvedilol 25 mg tablet 25 mg PO BID 12/23/23 02/03/24 furosemide 40 mg tablet 40 mg PO QAM 12/23/23 02/03/24 losartan 100 mg tablet 100 mg PO QAM 12/23/23 02/03/24 mometasone 0.1 % topical cream 1 applic topical DAILY #45 grams 01/07/24 02/03/24 ondansetron 8 mg disintegrating 8 mg PO Q8HR PRN nausea and 01/07/24 02/03/24 tablet vomiting #30 tabs prochlorperazine maleate 10 mg 10 mg PO Q6HR PRN nausea and 01/07/24 02/03/24 tablet (Compazine) vomiting #30 tabs ibuprofen 600 mg tablet 600 mg PO Q4-6H PRN pain 3 days 01/20/24 02/03/24 #14 tabs omeprazole 20 mg capsule,delayed See Rx Instructions .Route 01/21/24 02/03/24 release .COMPLEX #90 caps Magic Mouthwash w/Lidocaine 240 mL 5 ml PO QID PRN mouth irritation 01/28/24 02/03/24 Bottle 240 mL bottle #240 mL morphine 10 mg/5 mL oral solution 5 mg (2.5 mL) PO Q4-6H PRN pain 10 02/02/24 02/16/24 days #100 mL trazodone 50 mg tablet See Rx Instructions .Route 02/05/24 .COMPLEX #90 tabs tramadol 50 mg tablet 50 mg PO Q6HR PRN pain 15 days #60 02/16/24 tabs Is patient having pain?: Yes PMFSH Medical History 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 Chemotherapy/Radiation therapy Paroxysmal atrial fibrillation MARYANN (obstructive sleep apnea) Obesity, unspecified Malignant neoplasm of prostate (07/21/18) s/p radioactive seeds Hyperlipidemia, unspecified (05/21/18) Hyperglycemia, unspecified (05/22/18) GERD (gastroesophageal reflux disease) Essential (primary) hypertension Elevated prostate specific antigen (PSA) (05/29/17) Asymptomatic varicose veins of bilateral lower extremities Surgical History History of cardiac radiofrequency ablation (RFA) History of umbilical hernia repair History of carpal tunnel release of both wrists History of vasectomy History of arthroscopy of knee Family History Father Prostate cancer Mother Cancer Legacy [facility] Problem: Diagnosed with Cancer Social History Marital Status: Smoking Status: Former smoker Tobacco Type: cigarettes Substance Use Type: Alcohol Substance Abuse Comment: 6-8 beers daily [place] Symptom Assessment Scale Pain: sore throat / still controlled with Tylenol and Motrin c/o excessive secretions Nausea/Vomiting: denies Anorexia: fair appetite Dyspnea: denies Constipation/Diarrhea: denies Drowsiness: denies Fatigue: minor fatigue Insomnia: stable Depression/Mood: stable Anxiety: stable Exam Exam General - A&O, unaccompanied HEENT - EOM intact, oral mucosa pink/moist Lungs - normal respiratory effort Extremities - normal ROM, no edema Psychiatric - pleasant, cooperative, normal mood/affect Assessment & Plan Assessment & Plan (1) Cancer associated pain: Plan: Alen reports mild sore throat that is well controlled with Motrin 800 mg TID-QID and tylenol. He is uneasy about using the morphine liquid because he has heard from other people that it can cause addiction. We discussed concepts of addiction, dependence, opioid use disorder and the potential need to utilize low dose opioid medication for a short time period to relieve treatment-induced pain so that he can continue to take in food and fluids during and after treatment. We discussed the increased risk of kidney injury, GI problems and bleeding with routine use of NSAID and Alen agrees to try substituting tramadol for the Motrin. Advised to continue tylenol as he has been using. Stop Motrin Start Tramadol 50 mg, 1/2-1 tablet q6h PRN; hold off on MSIR unless pain cannot be controlled with tramadol/tylenol F/U here one week at time of radiation (2) Oropharyngeal cancer: Problem Comment: Dx: 12/2023 Chemotherapy/Radiation therapy Plan: Continues concurrent chemoradiation Attestation: The above note written by Nathalie Angel MA acting as human recorder, note dictated by Mili Squires APRN, ARBOREAL SCIENTIST-C Dictated By: Mili Squires APRN DD/ Signed By: <Electronically signed by MIGUEL Squires> 02/16/24 1318 [facility] Work Phone: 1(395) 100-478407-22-2024 Progress note Author Mili Squires [facility] February 09, 2024 9:15am Note Date/Time February 09, 2024 9:07 am [facility] [address] [place] [address] Palliative Medicine Encounter Patient: Alen Calderon MR#: [id number] : 1965 Acct:[id number] Age/Sex: 58 / M Copies to: Charly Hooper,DO Mili Squires APRN~ HPI Date of Visit Date of Visit: 02/09/2024 Chief Complaint: Alen is here for follow up at time of radiation. He was to start Morphine 5mg/ml using 2.5 ml every 4-6 hours as needed IF needed. He c/o of loss of taste over the weekend. HPI: Alen is seen and examined; interim period and pertinent symptoms reviewed below and detailed in ESAS: Notes taste changes since Friday Intermittent mild sore throat, relieved with tylenol/ibuprofen Intake Allergies acetaminophen [Percocet] Allergy (Unknown, Verified 02/09/24 08:06) rash oxycodone [Percocet] Allergy (Unknown, Verified 02/09/24 08:06) rash Home Medications Medication Instructions Recorded Confirmed amiodarone 200 mg tablet 200 mg PO .every other day a fib 12/23/23 02/03/24 amlodipine 10 mg tablet 10 mg PO QAM htn 12/23/23 02/03/24 apixaban 5 mg tablet (Eliquis) 5 mg PO BID anticoagulation 12/23/23 02/03/24 carvedilol 25 mg tablet 25 mg PO BID 12/23/23 02/03/24 furosemide 40 mg tablet 40 mg PO QAM 12/23/23 02/03/24 losartan 100 mg tablet 100 mg PO QAM 12/23/23 02/03/24 mometasone 0.1 % topical cream 1 applic topical DAILY #45 grams 01/07/24 02/03/24 ondansetron 8 mg disintegrating 8 mg PO Q8HR PRN nausea and 01/07/24 02/03/24 tablet vomiting #30 tabs prochlorperazine maleate 10 mg 10 mg PO Q6HR PRN nausea and 01/07/24 02/03/24 tablet (Compazine) vomiting #30 tabs ibuprofen 600 mg tablet 600 mg PO Q4-6H PRN pain 3 days 01/20/24 02/03/24 #14 tabs omeprazole 20 mg capsule,delayed See Rx Instructions .Route 01/21/24 02/03/24 release .COMPLEX #90 caps Magic Mouthwash w/Lidocaine 240 mL 5 ml PO QID PRN mouth irritation 01/28/24 02/03/24 Bottle 240 mL bottle #240 mL morphine 10 mg/5 mL oral solution 5 mg (2.5 mL) PO Q4-6H PRN pain 10 02/02/24 02/03/24 days #100 mL trazodone 50 mg tablet See Rx Instructions .Route 02/05/24 .COMPLEX #90 tabs Is patient having pain?: No [facility] Medical History 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 Chemotherapy/Radiation therapy Paroxysmal atrial fibrillation MARYANN (obstructive sleep apnea) Obesity, unspecified Malignant neoplasm of prostate (07/21/18) s/p radioactive seeds Hyperlipidemia, unspecified (05/21/18) Hyperglycemia, unspecified (05/22/18) GERD (gastroesophageal reflux disease) Essential (primary) hypertension Elevated prostate specific antigen (PSA) (05/29/17) Asymptomatic varicose veins of bilateral lower extremities Surgical History History of cardiac radiofrequency ablation (RFA) History of umbilical hernia repair History of carpal tunnel release of both wrists History of vasectomy History of arthroscopy of knee Family History Father Prostate cancer Mother Cancer Legacy FamHx Problem: Diagnosed with Cancer Social History Smoking Status: Former smoker Tobacco Type: cigarettes Substance Use Type: Alcohol Substance Abuse Comment: 6-8 beers daily [place] Symptom Assessment Scale Pain: intermittent minor sore throat, relieved with Tylenol denies cough/ secretions Nausea/Vomiting: denies Anorexia: loss of taste Dyspnea: denies Constipation/Diarrhea: denies Drowsiness: denies Fatigue: denies Insomnia: denies Depression/Mood: stable Anxiety: stable Assessment & Plan Assessment & Plan (1) Cancer associated pain: Plan: Reports mild intermittent sore throat, relieved with PRN use of tylenol, ibuprofen Symptoms controlled at this time, he has pain medication on hand if (2) Oropharyngeal cancer: Problem Comment: Dx: 12/2023 Chemotherapy/Radiation therapy Plan: Week 2 concurrent chemoradiation Attestation: The above note written by Nathalie Angel MA acting as human recorder, note dictated by Mili Squires APRN, ARBOREAL SCIENTIST-C Dictated By: Mili Squires APRN DD/ 6 Signed By: <Electronically signed by MIGUEL Squires> 02/09/24914 [facility] Work Phone: [phone]) 364-909507-15-2024 Progress note Author Mili Squires [facility] February 02, 2024 9:23am Note Date/Time February 02, 2024 8:[address] [facility] [address] [place] [address] Palliative Medicine Encounter Patient: Alen Calderon MR#: [id number] : 1965 Acct:[id number] Age/Sex: 58 / M Copies to: DO Mili Light APRN~ HPI Date of Visit Date of Visit: 02/02/2024 Chief Complaint: Alen is here for follow up at time of radiation. He was to continue Magic Mouthwash and Trazodone at last office visit HPI: Alen is seen and examined; interim period and pertinent symptoms reviewed below and detailed in ESAS: Tolerated start of chemo and radiation last week with minimal discomfort Experienced a little bit of nausea 2 days after chemo, relieved with zofran ODT Anxiety is settling some Intake Allergies acetaminophen [Percocet] Allergy (Unknown, Verified 02/02/24 08:57) rash oxycodone [Percocet] Allergy (Unknown, Verified 02/02/24 08:57) rash Home Medications Medication Instructions Recorded Confirmed amiodarone 200 mg tablet 200 mg PO .every other day a fib 12/23/23 01/20/24 amlodipine 10 mg tablet 10 mg PO QAM htn 12/23/23 01/20/24 apixaban 5 mg tablet (Eliquis) 5 mg PO BID anticoagulation 12/23/23 01/20/24 carvedilol 25 mg tablet 25 mg PO BID 12/23/23 01/20/24 furosemide 40 mg tablet 40 mg PO QAM 12/23/23 01/20/24 losartan 100 mg tablet 100 mg PO QAM 12/23/23 01/20/24 mometasone 0.1 % topical cream 1 applic topical DAILY #45 grams 01/07/24 01/12/24 ondansetron 8 mg disintegrating 8 mg PO Q8HR PRN nausea and 01/07/24 01/12/24 tablet vomiting #30 tabs prochlorperazine maleate 10 mg 10 mg PO Q6HR PRN nausea and 01/07/24 01/12/24 tablet (Compazine) vomiting #30 tabs trazodone 50 mg tablet 50 mg PO QHS PRN sleep 30 days #30 01/12/24 01/20/24 tabs ibuprofen 600 mg tablet 600 mg PO Q4-6H PRN pain 3 days 01/20/24 #14 tabs omeprazole 20 mg capsule,delayed See Rx Instructions .Route 01/21/24 release .COMPLEX #90 caps Magic Mouthwash w/Lidocaine 240 mL 5 ml PO QID PRN mouth irritation 01/28/24 Bottle 240 mL bottle #240 mL morphine 10 mg/5 mL oral solution 5 mg (2.5 mL) PO Q4-6H PRN pain 10 02/02/24 days #100 mL PMFSH Medical History Oropharyngeal cancer Paroxysmal atrial fibrillation MARYANN (obstructive sleep apnea) Obesity, unspecified Malignant neoplasm of prostate (07/21/18) s/p radioactive seeds Hyperlipidemia, unspecified (05/21/18) Hyperglycemia, unspecified (05/22/18) GERD (gastroesophageal reflux disease) Essential (primary) hypertension Elevated prostate specific antigen (PSA) (05/29/17) Asymptomatic varicose veins of bilateral lower extremities Surgical History History of cardiac radiofrequency ablation (RFA) History of umbilical hernia repair History of carpal tunnel release of both wrists History of vasectomy History of arthroscopy of knee Family History Father Prostate cancer Mother Cancer [facility] Problem: Diagnosed with Cancer Social History Smoking Status: Former smoker Tobacco Type: cigarettes Substance Use Type: Alcohol Substance Abuse Comment: 6-8 beers daily [place] Symptom Assessment Scale Pain: denies Nausea/Vomiting: mild, intermittent nausea 2 days after chemo Anorexia: good appetite/ eating and swallowing fine Dyspnea: denies Constipation/Diarrhea: stable Fatigue: denies Insomnia: stable Depression/Mood: stable / staying positive / has support system Anxiety: stable Exam Exam General - A&O, unaccompanied HEENT - EOM intact, oral mucosa pink/moist Lungs - normal respiratory effort Abdomen - soft, non-distended Extremities - normal ROM, no edema Psychiatric - pleasant, cooperative, normal mood/affect Assessment & Plan Assessment & Plan (1) Cancer associated pain: Plan: Using Magic Mouthwash several times/day Liquid Morphine 10mg/5 ml sent in to have on hand for if/when pain increases and is not relieved with tylenol F/U here one week at time of radiation (2) Oropharyngeal cancer: Plan: Continues concurrent chemoradiation Attestation: The above note written by Nathalie Angel MA acting as human recorder, note dictated by Mili Squires APRN, ARBOREAL SCIENTIST-C Dictated By: Mili Squires APRN DD/ Signed By: <Electronically signed by MIGUEL Squires> 02/02/24 0923 [facility] Work Phone: 1(613) 106-544806-19-2024 Progress note Author Karly Nielsen [facility] January 07, 2024 2:56pm Note Date/Time January 07, 2024 1:49 pm [facility] [place] [address] Cancer Center Note Signed Patient: Alen Calderon MR#: [id number] 88 : 1965 Acct:[id number] Age/Sex: 58 / M Type: REG AMB Date of Service: 01/07/24 Copies to: DO Charly Light DO~ Assessment & Plan A/P (1) Oropharyngeal cancer: Plan Alen is a 58-year-old male with stage II, 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 Patient's case has been reviewed at tumor board with recommendations for definitive concurrent chemoradiation therapy. Will obtain hearing test, echocardiogram and plan for weekly Cisplatin in concurrent with radiation. His baseline creatinine is normal 0.9. Will start chemo once radiation is ready to start. Radiation oncology Recommended delivery of 69.96 Webb in 33 fractions to the right tonsil and left neck with delivery of 52.8 Webb to the elective cirilo regions. RTC in 3 weeks on week 2 of treatment for toxicity check. Consent obtained for Cisplatin for now. Orders: Orders Chemotherapy Class Today 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, unspecified Complete Blood Count Auto Diff Today 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, unspecified Toxicity Check Today 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, unspecified Comprehensive Metabolic Panel Today 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, unspecified ECH echo transthoracic 3 Days 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, unspecified Referrals Referral to General Surgery 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, unspecified Referral to Audiology 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, unspecified Patient Instructions: Plan cisplatin with XRT audiology referral referral surgery for port chemo class ECHO CHEMO PLAN No Active Chemotherapy History of Present Illness HPI 58-year-old male presenting with large right-sided neck mass. Patient has a prior history of prostate cancer treated with brachytherapy. December 02, 2023 CT soft tissue neck with contrast showed enlarged mass in the hypopharynx measuring 2.1 cm on the right side. And at least 1 enlarged lymph node at level 2 on the right neck measuring 2.9 cm. December 24, 2023 PET showed a focus of FDG accumulation in the right glossotonsillarsulcus/right lingual tonsil with SUV of 6.5. In the pathologically enlarged lymph nodes in the right level 2A there is a focus of FDG accumulation SUV 7.8. No additional abnormal FDG avid lymph nodes were noted. There are nonspecific cervical lymph nodes in the level 2 and level 3 bilaterally measuring up to 7 mm. Radiation seeds are noted in the prostate bed. December 25, 2023 patient was taken the OR for ultrasound-guided FNA of the right neck mass and right tonsil biopsy. Operative note describes a narrow maxilla and mandible making examination of the right tonsil very difficult. Tonsil was mobile but it was virtually impossible to reach the inferior aspect of the tonsil due to the patient's body habitus. Rec laryngoscopy was attempted again with various size laryngoscope's but it was not possible to transversed the epiglottis because of body habitus. Frozen sections returned consistent with squamous cell. Right tonsil biopsy 12/25/23 revealed moderately to poorly differentiated squamouscell carcinoma nonkeratinizing type, diffusely positive for p16 and p40. FNA also returned positive. December 26, 2023 patient's case was reviewed at our multidisciplinary tumor board with recommendations for concurrent chemoradiation. Patient presented 01/07/24 to our medical oncology clinic for initial consult to discuss treatment options of his right tonsillar cancer. Patient was referred byJOSE Brown for concurrent chemo/radiation. Patient was seen earlier also byradiation oncology. 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 He also states he has mild right hearing loss from the machine guns use in the past. Also he has intermittent ringing in the ears bilaterally. He also has history of Afib and bilateral leg edema of unclear etiology for which he is on Amiodarone, Losartan, lasix 40 mg daily and he is also on Amlodipine 10 mg daily for HTN which can casue leg edema as well. He is scheduled for Simulation on 01/15/24. He denies throat pain or dysphagia and no odynophagia as well. he is eating well. 14 points ROS is obtained and is otherwise negative. Intake Vitals/Pain Assessment 01/07/24 13:05 Height 5 ft 10 in Weight 113.398 kg Intake Visit Reasons: NEW - Tonsil CA Accompanied by: spouse Allergies acetaminophen [Percocet] Allergy (Unknown, Verified 12/25/23 07:54) rash oxycodone [Percocet] Allergy (Unknown, Verified 12/25/23 07:54) rash - Last Reconciled 01/07/24 by Tita Toney amiodarone 200 mg PO .every other day amlodipine 10 mg PO QAM apixaban (Eliquis) 5 mg PO BID carvedilol 25 mg PO BID furosemide 40 mg PO QAM losartan 100 mg PO QAM mometasone 0.1% 1 applic topical DAILY omeprazole 20 mg PO DAILY PRN Gastrointestinal Is the patient taking opioids for pain control?: No Bowel Protocol for Opioids Given: No Falls Fall Precaution Measures Taken: Patient in chair Nurse's Note: Patient is referred by Dr Nowak for concurrent chemoradiation for head and neck cancer. Patient will be have CT/SIM next . [facility] Medical History Medical History (Updated 01/06/24 @ 10:50 by Marbella Muñoz MD) Oropharyngeal cancer Paroxysmal atrial fibrillation MARYANN (obstructive sleep apnea) Obesity, unspecified Malignant neoplasm of prostate (07/21/18) s/p radioactive seeds Hyperlipidemia, unspecified (05/21/18) Hyperglycemia, unspecified (05/22/18) GERD (gastroesophageal reflux disease) Essential (primary) hypertension Elevated prostate specific antigen (PSA) (05/29/17) Asymptomatic varicose veins of bilateral lower extremities Surgical History Surgical History History of cardiac radiofrequency ablation (RFA) History of umbilical hernia repair History of carpal tunnel release of both wrists History of vasectomy History of arthroscopy of knee Family History Family History Father Prostate cancer Mother Cancer Legacy FamHx Problem: Diagnosed with Cancer Social History Social History Smoking status: Former smoker Within the past year, how often did you have a drink containing alcohol: 2-4 times a month Within the past year, how many standard drinks containing alcohol did you have on a typical day: 3 or 4 Review of Systems ROS Details: All systems reviewed & no additional complaints except as documented General: Patient denied fevers, chills, rigors, weight loss or loss of appetite. Head: Patient denied any headaches or vision changes Thoracic: Patient denied any shortness of breath or cough or hemoptysis Cardiovascular patient denies any chest pain or leg edema GI: Patient denies any nausea vomiting rectal bleed diarrhea : Patient denied gross hematuria. Hematology: Patient denied any bleeding from any source. No easy bruising. Lymphatic: No enlarged LAP anywhere. Skin: Normal skin exam no rashes or suspicious lesions. Neurological patient denies any headache or dizziness or focal weakness or sensory changes. Physical Exam EXAM HEENT normocephalic atraumatic pupils are equal and round Neck supple without thyromegaly or any cervical lymphadenopathy. Chest clear to auscultation bilaterally without wheezing crackles or rhonchi Heart regular rate and rhythm S1-S2 without murmurs gallop or rub Abdomen soft nontender not distended without hepatosplenomegaly or masses clinically Extremities no edema of the lower extremities Skin without any suspicious rashes Lymphatic system no lymphadenopathy in the cervical area axillary areas or inguinal areas bilaterally Neurological exam patient is cooperative alert and oriented x3 no focal deficits. Results - [facility] (Med Onc) LAB RESULTS Sodium 138 mmol/L (136-145) 12/23/23 07:47 Potassium 4.8 mmol/L (3.5-5.1) 12/23/23 07:47 BUN 18 mg/dL (7-25) 12/23/23 07:47 Creatinine 0.91 mg/dL (0.70-1.30) 12/23/23 07:47 Glucose 133 mg/dL (70-100) H 12/23/23 07:47 Est GFR (CKD-EPI) > 60.0 mL/Min 12/23/23 07:47 Calcium 9.8 mg/dL (8.6-10.3) 12/23/23 07:47 Dictated By: Karly Nielsen MD DD/ 1348 Signed By: <Electronically signed by Karly Nielsen MD> 01/07/24 6506 [facility] Work Phone: 1(984) 954-523606-19-2024 Progress note Author Marbella Muñoz [facility] January 07, 2024 3:28pm Note Date/Time January 07, 2024 1:08 pm [facility] [place] [address] Cancer Center Note Signed Patient: Alen Calderon MR#: [id number] 88 : 1965 Acct:[id number] Age/Sex: 58 / M Type: REG AMB Date of Service: 01/07/24 Copies to: DO Charly Light DO~ Assessment & Plan (1) Oropharyngeal cancer: Plan: CT simulation with IV contrast-IMRT with daily IGRT with delivery of 69.96 Webb in 33 fractions to the right tonsil and level 2 lymph node with delivery of 52.8Gray to the elective cirilo regions bilateral neck Finalize dental clearance-patient is seeing dentist Palliative care referral for symptom management Nutrition referral [facility] for speech and swallow therapy Assessment: 58-year-old male with stage II, 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 Patient's case has been reviewed at tumor board with recommendations for definitive concurrent chemoradiation therapy. I have reviewed his imaging in detail and there appearsto be base of tongue involvement inferiorly extending towards the midline. Fiberoptic laryngoscopy also shows no obvious exophytic tumor albeit limited dueto body habitus. Recommend delivery of 69.96 Webb in 33 fractions to the right tonsil and level 2lymph node with delivery of 52.8 Webb to the elective cirilo regions bilateral neck. Fortunately patient is seen a dentist in [place] we will obtain clearance. I provided a general overview of radiation treatment planning and delivery. We discussed the need for immobilization and CT simulation. Short and long-term side effects were reviewed in detail and his questions were answered. He was consented to receive care Orders: Orders 2 CT Simulation 1 Week 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, unspecified Referrals 2 Referral to Palliative Medicine 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, unspecified RISE Order 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, unspecified Medications: New 2 mometasone 0.1% Apply to radiation site, once a day, AFTER radiation treatments. 1 applic topical DAILY 45 grams 0RF 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, unspecified History of Present Illness HPI 58-year-old male presenting with large right-sided neck mass. Patient has a prior history of prostate cancer treated with brachytherapy?? December 02, 2023 CT soft tissue neck with contrast showed enlarged mass in the hypopharynx measuring 2.1 cm on the right side. And at least 1 enlarged lymph node at level 2 on the right neck measuring 2.9 cm. December 24, 2023 PET showed a focus of FDG accumulation in the right glossotonsillarsulcus/right lingual tonsil with SUV of 6.5. In the pathologically enlarged lymph nodes in the right level 2A there is a focus of FDG accumulation SUV 7.8. No additional abnormal FDG avid lymph nodes were noted. There are nonspecific cervical lymph nodes in the level 2 and level 3 bilaterally measuring up to 7 mm. Radiation seeds are noted in the prostate bed December 25, 2023 patient was taken the OR for ultrasound-guided FNA of the right neck mass and right tonsil biopsy. Operative note describes a narrow maxilla and mandible making examination of the right tonsil very difficult. Tonsil was mobile but it was virtually impossible to reach the inferior aspect of the tonsil due to the patient's body habitus. Rec laryngoscopy was attempted again with various size laryngoscope's but it was not possible to transversed the epiglottis because of body habitus. Frozen sections returned consistent with squamous cell. 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 FNA also returned positive. December 26, 2023 patient's case was reviewed at our multidisciplinary tumor board with recommendations for concurrent chemoradiation. Today patient is coming by his . He works for a [employer] in [employer]. Anticipates taking FMLA for treatment. Denies significant throat pain. Tolerating p.o. intake. No respiratory complaints. Intake Vitals/Pain Assessment 3 01/07/24 13:05 Height 5 ft 10 in Weight 113.398 kg BMI 35.9 Body Fat % 50.87 BP 149/87 H Blood Pressure Location Lt brachial Position Sitting Pulse 69 Pulse Source NIBP Respiration 18 Pulse Oximetry (%) 97 Oxygen Delivery Method room air Are you having pain? No Intake Visit Reasons: New - Tonsil Cancer Allergies acetaminophen [Percocet] Allergy (Unknown, Verified 12/25/23 07:54) rash oxycodone [Percocet] Allergy (Unknown, Verified 12/25/23 07:54) rash Nurse's Note: Patient presents to clinic to discuss treatment options or tonsil cancer. Patient was referred by Dr. Nowak, ENT for concurrent chemo/radiation. Patient will meet with both medical and radiation oncology today. He denies pain and is eating well. [facility] Medical History Medical History (Updated 01/06/24 @ 10:50 by Marbella Muñoz MD) Oropharyngeal cancer Paroxysmal atrial fibrillation MARYANN (obstructive sleep apnea) Obesity, unspecified Malignant neoplasm of prostate (07/21/18) s/p radioactive seeds Hyperlipidemia, unspecified (05/21/18) Hyperglycemia, unspecified (05/22/18) GERD (gastroesophageal reflux disease) Essential (primary) hypertension Elevated prostate specific antigen (PSA) (05/29/17) Asymptomatic varicose veins of bilateral lower extremities Surgical History Surgical History History of cardiac radiofrequency ablation (RFA) History of umbilical hernia repair History of carpal tunnel release of both wrists History of vasectomy History of arthroscopy of knee Family History Family History Father Prostate cancer Mother Cancer Legacy FamHx Problem: Diagnosed with Cancer Social History Social History Smoking status: Former smoker Within the past year, how often did you have a drink containing alcohol: 2-4 times a month Within the past year, how many standard drinks containing alcohol did you have on a typical day: 3 or 4 Physical Exam EXAM Physical Exam: General: alert, no acute distress HEENT: normocephalic, EOMI, no trismus noted. Oral cavity is notable for very narrow mandible. Patient has multiple dental fillings. Buccal and gingival mucosa pink and moist without lesion. Oral tongue is soft, mobile. I am unable to visualize the base of tongue secondary to body habitus. Neck: Palpable approximately 2 cm level 2 lymphadenopathy in the submandibular area. No skin involvement. CHEST: normal work of breathing on room air. Abdomen: non acute MSK: extremities within normal limits Neuro: grossly intact Flexible laryngoscopy: I inserted Afrin 0.05% (0.5ml) and and Cetacaine 0.5ml) 1ml total- 0.5ml in each nare Upon confirmation the patient was numb, I inserted the fiberoptic laryngoscope. Exam showed nasopharynx to be within normal limits. Progression of the scope into the oropharynx showed normal posterior pharyngeal wall. Base of tongue was normal appearin without an obvious exophytic mass. Findings consistent with a submucosal lesion (or occluded by mucous). progression into the hypopharynx showed epiglottis to be within normal limits. False cords and piriform sinus were also normal- appearing without lesion. Bilateral vocal cord mobility. [facility] - [facility] LAB RESULTS 2 Glucose 133 mg/dL (70-100) H 12/23/23 07:47 BUN 18 mg/dL (7-25) 12/23/23 07:47 Creatinine 0.91 mg/dL (0.70-1.30) 12/23/23 07:47 Est GFR (CKD-EPI) > 60.0 mL/Min 12/23/23 07:47 Sodium 138 mmol/L (136-145) 12/23/23 07:47 Potassium 4.8 mmol/L (3.5-5.1) 12/23/23 07:47 Chloride 102 mmol/L (98-107) 12/23/23 07:47 Carbon Dioxide 28.7 mmol/L (21.0-31.0) 12/23/23 07:47 Anion Gap 12.1 mEq/L (6.0-15.0) 12/23/23 07:47 Calcium 9.8 mg/dL (8.6-10.3) 12/23/23 07:47 Dictated By: Marbella Muñoz MD DD/ [id number] Signed By: <Electronically signed by Marbella Muñoz MD> 01/07/24 1528 [facility] Work Phone: 1(416) 859-937806-19-2024 Hospital Discharge instructionsAmbulatory Orders* Referral to Audiology Time Frame: 01/07/24, Location: None Selected * Referral to General Surgery Time Frame: 01/07/24, Location: None Selected [facility] Work Phone: 1([phone]) 241-161901-29-2024 Hospital Discharge instructions Patient Education 08/18/2023 11:39:40 Erectile Dysfunction Erectile Dysfunction Erectile dysfunction (ED) is the inability to get or keep an erection in order to have sexual intercourse. ED is considered a symptom of an underlying disorder and is not considered a disease. ED mayinclude: Inability to get an erection. Lack of enough hardness of the erection to allow penetration. Loss of erection before sex is finished. What are the causes? This condition may be caused by: Physical causes, such as: ?Artery problems. This may include heart disease, high blood pressure, atherosclerosis, and diabetes. ?Hormonal problems, such as low testosterone. ?Obesity. ?Nerve problems. This may include back or pelvic injuries, multiple sclerosis, Parkinson's disease,spinal cord injury, and stroke. Certain medicines, such as: ?Pain relievers. ?Antidepressants. ?Blood pressure medicines and water pills (diuretics). ?Cancer medicines. ?Antihistamines. ?Muscle relaxants. Lifestyle factors, such as: ?Use of drugs such as marijuana, cocaine, or opioids. ?Excessive use of alcohol. ?Smoking. ?Lack of physical activity or exercise. Psychological causes, such as: ?Anxiety or stress. ?Sadness or depression. ?Exhaustion. ?Fear about sexual performance. ?Guilt. What are the signs or symptoms? Symptoms of this condition include: Inability to get an erection. Lack of enough hardness of the erection to allow penetration. Loss of the erection before sex is finished. Sometimes having normal erections, but with frequent unsatisfactory episodes. Low sexual satisfaction in either partner due to erection problems. A curved penis occurring with erection. The curve may cause pain, or the penis may be too curved toallow for intercourse. Never having nighttime or morning erections. How is this diagnosed? This condition is often diagnosed by: Performing a physical exam to find other diseases or specific problems with the penis. Asking you detailed questions about the problem. Doing tests, such as: ?Blood tests to check for diabetes mellitus or high cholesterol, or to measure hormone levels. ?Other tests to check for underlying health conditions. ?An ultrasound exam to check for scarring. ?A test to check blood flow to the penis. Doing a sleep study at home to measure nighttime erections. How is this treated? This condition may be treated by: Medicines, such as: ?Medicine taken by mouth to help you achieve an erection (oral medicine). ?Hormone replacement therapy to replace low testosterone levels. ?Medicine that is injected into the penis. Your health care provider may instruct you how to give yourself these injections at home. ?Medicine that is delivered with a short applicator tube. The tube is inserted into the opening at the tip of the penis, which is the opening of the urethra. A tiny pellet of medicine is put in the urethra. The pellet dissolves and enhances erectile function. This is also called MUSE (medicated urethral system for erections) therapy. Vacuum pump. This is a pump with a ring on it. The pump and ring are placed on the penis and used to create pressure that helps the penis become erect. Penile implant surgery. In this procedure, you may receive: ?An inflatable implant. This consists of cylinders, a pump, and a reservoir. The cylinders can be inflated with a fluid that helps to create an erection, and they can be deflated after intercourse. ?A semi-rigid implant. This consists of two silicone rubber rods. The rods provide some rigidity. They are also flexible, so the penis can both curve downward in its normal position and become straight for sexual intercourse. Blood vessel surgery to improve blood flow to the penis. During this procedure, a blood vessel froma different part of the body is placed into the penis to allow blood to flow around (bypass) damaged or blocked blood vessels. Lifestyle changes, such as exercising more, losing weight, and quitting smoking. Follow these instructions at home: Medicines Take blla-zmr-hazvocm and prescription medicines only as told by your health care provider. Do not increase the dosage without first discussing it with your health care provider. If you are using self-injections, do injections as directed by your health care provider. Make sureyou avoid any veins that are on the surface of the penis. After giving an injection, apply pressureto the injection site for 5 minutes. Talk to your health care provider about how to prevent headaches while taking ED medicines. These medicines may cause a sudden headache due to the increase in blood flow in your body. General instructions Exercise regularly, as directed by your health care provider. Work with your health care provider to lose weight, if needed. Do not use any products that contain nicotine or tobacco. These products include cigarettes, chewing tobacco, and vaping devices, such as e-cigarettes. If you need help quitting, ask your health careprovider. Before using a vacuum pump, read the instructions that come with the pump and discuss any questionswith your health care provider. Keep all follow-up visits. This is important. Contact a health care provider if: You feel nauseous. You are vomiting. You get sudden headaches while taking ED medicines. You have any concerns about your sexual health. Get help right away if: You are taking oral or injectable medicines and you have an erection that lasts longer than 4 hours. If your health care provider is unavailable, go to the nearest emergency room for evaluation. An erection that lasts much longer than 4 hours can result in permanent damage to your penis. You have severe pain in your groin or abdomen. You develop redness or severe swelling of your penis. You have redness spreading at your groin or lower abdomen. You are unable to urinate. You experience chest pain or a rapid heartbeat (palpitations) after taking oral medicines. These symptoms may represent a serious problem that is an emergency. Do not wait to see if the symptoms will go away. Get medical help right away. Call your local emergency services (911 in the [place] Do not drive yourself to the hospital. Summary Erectile dysfunction (ED) is the inability to get or keep an erection during sexual intercourse. This condition is diagnosed based on a physical exam, your symptoms, and tests to determine the cause. Treatment varies depending on the cause and may include medicines, hormone therapy, surgery, or a vacuum pump. You may need follow-up visits to make sure that you are using your medicines or devices correctly. Get help right away if you are taking or injecting medicines and you have an erection that lasts longer than 4 hours. This information is not intended to replace advice given to you by your health care provider. Make sure you discuss any questions you have with your health care provider. Document Revised: 10/03/2021 Document Reviewed: 10/03/2021 [employer] Patient Education 2022 [employer]. Follow Up Care 08/09/2022 10:17:02 With:KAYDEN URBINA, Abner Mjoica, URL Address: [facility] [address] [place] [address]- [phone] When: Unknown Comments:PSA in 6 mos, f/u in 1 yr w/ repeat PSA [facility] Maria Elena 10-18-2023 NoteUT Electrophysiology Consult Note Reason for visit: afib, s/p PVI with CTI 03/20/2022 HPI: Alen Calderon is a 58 y.o. year old with past medical history of Patient is here for 1 month follow-up regarding his A-fib. He has history of PVI ablation 03/20/2022 and was previously taking flecainide and is continue to have breakthrough episodes so A-fib ablation was pursued. Patient continues to take Eliquis 5 mg twice daily, [id number] 1 for hypertension. Patient's been taking amiodarone has been feeling well on amiodarone with no concern for side effects, but continues to complain of breakthrough episodes per his [employer] mobile. Patient began to take amiodarone around [...] MARYANN, pedal edema (CCB vs venous insufficiency?) Per dr. Virgen HPI 03/05/2022 cc; Afib Pt has taken [...] PND, no claudication, Constitut (more content not included)...[facility] 05-07-2023 NotePatient here for 1 mo follow up PAF and hypertension per Anastasiya Molina CNP. Had labs and ECG at last visit on 04/09/2023. Doing very well. Denies chest pain, SOB, palpitations, and bleeding on Eliquis. Review of Systems All other systems reviewed and are negative.[facility] 04-09-2023 NoteUTP CARDIOLOGY PROGRESS NOTE HPI: Alen Calderon is a 58 y.o. male here for Follow-up (6 month F/U) HPI routine f/U for A fib s/p A fib ablation, HTN Reports over the last couple weeks he has felt afib and confirmed A fib on his kardia monitor. States this last week he was [...] discuss discontinuing his anticoagulation. HPI per Dr. Virgen cc; Afib Pt has taken Amio and also noted dome pedmicah edeam that has got better with lasix [...] 03/12/2018 was exercise treadmi (more content not included)...[facility]09-20-2023 NoteReview of Systems All other systems reviewed and are negative.[facility] 04-09-2023 NoteHypertension well controlled 112/74 Continue norvasc, coreg, losartan, [facility] [id number] VASc= Currently pt admits intermittent A fib noted on Kardia monitor over the last week Send for labs CBC, CMP, TSH and Mag level Continue anticoagulation with eliquis Monitor for s/s of bleeding Continue coreg and pt resumed amiodarone this past Friday, per self for noted paroxysmal A fib and symptomatic with palpitations and TTAE States he was in A fib x 4 days without CP or SOB. RTC with EP in 1-2 months[facility] Note Cardiovascular Medicine [facility] SUBJECTIVE Chief Complaint Patient presents with Atrial Fibrillation Alen Calderon is a 57 y.o. male is being seen today for follow-up on his a.fib. Atrial Fibrillation Past medical history includes atrial fibrillation. He states he has been feeling well overall. He feels like he has more energy to do things. He denies any c/o CP, dyspnea, palpitations, dizziness/LH, syncope, or bleeding issues. He is wanting to discuss discontinuing his anticoagulation. HPI per Dr. Virgen cc; Afib Pt has taken Amio and also noted sofya suarez that has got better with lasix which [...] DATE OF PROCEDURE: 03/20/2022 PERFORMING PHYSICIAN: Dr. Thoe Virgen CONSENT: Patient NAME OF THE PROCEDURE: Pulmonary Vein Isolation and Comprehensive EP study. INDICATIONS FOR PROCEDURE: 1. Persistent atrial fibrillation having failed pharmacologic therapy. PROCEDURES PERFORMED: 1. Sonosite guided venous access as noted below and images stored. 2. Comprehensive EP study an (more content not included)...[facility]03-08-2023 NotePatient here for 5 mo follow up and to discuss the need [...] swelling. All other systems reviewed and are negative.[facility] 08-09-2022 Hospital Discharge instructions Patient Education 08/09/2022 10:12:33 Benign Prostatic Hyperplasia Benign Prostatic Hyperplasia Benign prostatic hyperplasia (BPH) is an enlarged prostate gland that is caused by the normal agingprocess and not by cancer. The prostate is [...] urethra. Follow these instructions at home: Take etat-hid-lrojrjw and prescription medicines only as told by [...] 07/07/2006 Document Revised: 06/01/2019 Document Reviewed: 08/11/2017 [employer] Patient Education 2020 [employer]. Follow Up Care 07/23/2021 10:55:23 With:KAYDEN URBINA, Abner Mojica, URL Address: [address] [place], [place] [id number]- When: Unknown Comments:1 year w/ PSA [facility] 01-25-2022 NoteHOME SLEEP STUDY Ordering Physician: Dr. Riaz Hooper Procedure Date:08/14/2021 CLINICAL HISTORY: This is a [...] obesity, insomnia or depressions. 3. Please correlate clinically.[facility] Future Appointments Appointment Date:08/04/2023 08:45:00 AM Scheduled Provider:Abner MONIQUE MD Location:[facility] Appointment Type:URO Office Visit Diagnostic Tests Pending * PSA Total 06/20/23 [facility] evaluation + Plan note Future Appointments Appointment Date:08/16/2024 08:45:00 AM Scheduled Provider:Abner MONIQUE MD Location:[facility] Appointment Type:URO Office Visit Diagnostic Tests Pending * PSA Total 08/18/23 [facility] evalcpnmvn note* Diagnosis Onset Date Resolution Status Maxillary sinusitis acute Swelling, mass, or lump in head and neck [facility] Work Phone: Evaluation note* Diagnosis Onset Date Resolution Status Maxillary sinusitis acute Swelling, mass, or lump in head and neck acute Oropharyngeal cancer acute Oropharyngeal cancer [facility] Work Phone: Evaluation note* Diagnosis Onset Date Resolution Status Maxillary sinusitis acute Swelling, mass, or lump in head and neck acute Oropharyngeal cancer acute Oropharyngeal cancer acute Acute insomnia acute Oropharyngeal cancer acute [facility] Work Phone: evaluation note* Diagnosis Onset Date Resolution Status Maxillary sinusitis acute Swelling, mass, or lump in head and neck acute Oropharyngeal cancer acute Oropharyngeal cancer acute Acute insomnia acute Oropharyngeal cancer acute Cancer associated pain acute Encounter for palliative care acute Oropharyngeal cancer acute [facility] Work Phone: evaluation note* Diagnosis Onset Date Resolution Status Maxillary sinusitis acute Swelling, mass, or lump in head and neck acute Oropharyngeal cancer acute Oropharyngeal cancer acute Acute insomnia acute Oropharyngeal cancer acute Cancer associated pain acute Encounter for palliative care acute Oropharyngeal cancer acute Cancer associated pain acute Oropharyngeal cancer acute [facility] Work Phone: evaluation note* Diagnosis Onset Date Resolution Status Maxillary sinusitis acute Swelling, mass, or lump in head and neck acute Oropharyngeal cancer acute Oropharyngeal cancer acute Acute insomnia acute Oropharyngeal cancer acute Cancer associated pain acute Encounter for palliative care acute Oropharyngeal cancer acute Cancer associated pain acute Oropharyngeal cancer acute Oropharyngeal cancer acute Cancer associated pain acute Oropharyngeal cancer acute [facility] Work Phone: evaluation note* Diagnosis Onset Date Resolution Status Oropharyngeal cancer acute Oropharyngeal cancer acute Acute insomnia acute Oropharyngeal cancer acute Cancer associated pain acute Encounter for palliative care acute Oropharyngeal cancer acute Cancer associated pain acute Oropharyngeal cancer acute Oropharyngeal cancer acute Cancer associated pain acute Oropharyngeal cancer acute Cancer associated pain acute Oropharyngeal cancer acute [facility] Work Phone: evaluddaug note* Diagnosis Onset Date Resolution Status Oropharyngeal cancer acute Oropharyngeal cancer acute Acute insomnia acute Oropharyngeal cancer acute Cancer associated pain acute Encounter for palliative care acute Oropharyngeal cancer acute Cancer associated pain acute Oropharyngeal cancer acute Oropharyngeal cancer acute Cancer associated pain acute Oropharyngeal cancer acute Cancer associated pain acute Oropharyngeal cancer acute Acute insomnia acute Cancer associated pain acute Nausea acute Oropharyngeal cancer acute [facility] Work Phone: evaluation note* Diagnosis Onset Date Resolution Status Oropharyngeal cancer acute Oropharyngeal cancer acute Acute insomnia acute Oropharyngeal cancer acute Cancer associated pain acute Encounter for palliative care acute Oropharyngeal cancer acute Cancer associated pain acute Oropharyngeal cancer acute Oropharyngeal cancer acute Cancer associated pain acute Oropharyngeal cancer acute Cancer associated pain acute Oropharyngeal cancer acute Oropharyngeal cancer acute Acute insomnia acute Cancer associated pain acute Nausea acute Oropharyngeal cancer acute Oropharyngeal cancer acute [facility] Work Phone: Evaluation note* Diagnosis Onset Date Resolution Status Oropharyngeal cancer acute Oropharyngeal cancer acute Acute insomnia acute Oropharyngeal cancer acute Cancer associated pain acute Encounter for palliative care acute Oropharyngeal cancer acute Cancer associated pain acute Oropharyngeal cancer acute Oropharyngeal cancer acute Cancer associated pain acute Oropharyngeal cancer acute Cancer associated pain acute Oropharyngeal cancer acute Oropharyngeal cancer acute Acute insomnia acute Cancer associated pain acute Nausea acute Oropharyngeal cancer acute Oropharyngeal cancer acute Cancer associated pain acute Oropharyngeal cancer acute [facility] Work Phone: Evaluation note* Diagnosis Onset Date Resolution Status Oropharyngeal cancer acute Oropharyngeal cancer acute Acute insomnia acute Oropharyngeal cancer acute Cancer associated pain acute Encounter for palliative care acute Oropharyngeal cancer acute Cancer associated pain acute Oropharyngeal cancer acute Oropharyngeal cancer acute Cancer associated pain acute Oropharyngeal cancer acute Cancer associated pain acute Oropharyngeal cancer acute Oropharyngeal cancer acute Acute insomnia acute Cancer associated pain acute Nausea acute Oropharyngeal cancer acute Oropharyngeal cancer acute Cancer associated pain acute Oropharyngeal cancer acute Acute insomnia acute Cancer associated pain acute Oropharyngeal cancer acute [facility] Work Phone: Hospital course Narrative No data available for this section [facility] Hospital Discharge instructions Additional Instructions DISCHARGE INSTRUCTIONS FOR GENERAL SURGERY YOUR ACTIVITY MAY INCLUDE: No restrictions on activities WOUND CARE/INCISION CARE: The sutures are underneath the skin and will dissolve by themselves. The incisions are covered with surgical glue, there is no need for additional Band-Aids It is safe to get the wounds wet with soap and water in the shower, no hot tubs or tub baths. -Is it common to feel pulling or sharp sticking sensations in the area of incision, these sensations are a part of the normal healing process. -If you develop fever, increasing pain, redness, or swelling around the incision, please notify our office MEDICATION -Resume all previous medications that you were taking for problems unrelated to your surgery, unless informed otherwise. If there are any problems with this, please call the original prescribing doctor. If you have any other questions regarding medications, please call our office. -Over the counter medications such as Acetaminophen, Ibuprofen, Naproxen, and others may be used as directed for pain unless a prescription was provided.[facility] Work Phone: Progress note No data available for this section [facility] Summary Purpose Family History Relationship Condition Age at Onset Recorded Date/T cyril father Unknown Malignant neoplasm Unknown Not Specified Malignant neoplasm Unknown Unknown Relationship Condition Age at Onset Recorded Date/T cyril father Unknown Malignant neoplasm of prostate Unknown Not Specified Unknown Malignant neoplasm Unknown Relationship Condition Age at Onset Recorded Date/T cyril father Unknown Malignant neoplasm of prostate Unknown mother Unknown Malignant neoplasm Unknown Advance Directives Advance Directive Response Recorded Date/ Time Advance Directives No November 12, 024 7:59am Advance Directive Response Recorded Date/ Time Advance Directives No December 21 4 12:24pm Chief Complaint and Reason for Visit Chief Complaint lump on neck - tende r Reason for Visit Maxillary sinusitis Swelling, mass, or lump in head and neck Chief Complaint lump on neck - tende r right neck mass Reason for Visit Maxillary sinusitis Swelling, mass, or lump in head and neck Chief Complaint lump on neck - tende r right neck mass C76.0 Reason for Visit Maxillary sinusitis Swelling, mass, or lump in head and neck Chief Complaint lump on neck - tende r right neck mass C76.0 right neck mass Reason for Visit Maxillary sinusitis Swelling, mass, or lump in head and neck Chief Complaint lump on neck - tende r right neck mass C76.0 right neck mass Tonsil Cancer New - [facility] Cancer NEW - [place] Reason for Visit Maxillary sinusitis Swelling, mass, or lump in head and neck Oropharyngeal cancer Oropharyngeal cancer Chief Complaint lump on neck - tende r right neck mass C76.0 right neck mass Tonsil Cancer New - [facility] NEW - [place] unable to sleep Reason for Visit Maxillary sinusitis Swelling, mass, or lump in head and neck Oropharyngeal cancer Oropharyngeal cancer Acute insomnia Oropharyngeal cancer Chief Complaint lump on neck - tende r right neck mass C76.0 right neck mass New - [facility] Cancer NEW - [place] unable to sleep [facility]onsil Cancer Tonsil Cancer Oropharyngeal Cancer Reason for Visit Maxillary sinusitis Swelling, mass, or lump in head and neck Oropharyngeal cancer Oropharyngeal cancer Acute insomnia Oropharyngeal cancer Chief Complaint lump on neck - tende r right neck mass C76.0 right neck mass New - [facility] NEW - [place] unable to sleep [facility] Cancer Oropharyngeal Cancer Tonsil Cancer Tonsil Cancer Reason for Visit Maxillary sinusitis Swelling, mass, or lump in head and neck Oropharyngeal cancer Oropharyngeal cancer Acute insomnia Oropharyngeal cancer Cancer associated pain Encounter for palliative care Oropharyngeal cancer Chief Complaint lump on neck - tende r right neck mass C76.0 right neck mass New - [facility] Cancer NEW - [place] unable to sleep [facility] Cancer Oropharyngeal Cancer [facility]onsil Cancer Tonsil Cancer Tonsil Cancer Reason for Visit Maxillary sinusitis Swelling, mass, or lump in head and neck Oropharyngeal cancer Oropharyngeal cancer Acute insomnia Oropharyngeal cancer Cancer associated pain Encounter for palliative care Oropharyngeal cancer Cancer associated pain Oropharyngeal cancer Chief Complaint lump on neck - tende r right neck mass C76.0 right neck mass New - [facility] Cancer NEW - [place] unable to sleep [facility] Cancer Oropharyngeal Cancer Tonsil Cancer T[facility]il Cancer Tox check Tonsil Cancer Reason for Visit Maxillary sinusitis Swelling, mass, or lump in head and neck Oropharyngeal cancer Oropharyngeal cancer Acute insomnia Oropharyngeal cancer Cancer associated pain Encounter for palliative care Oropharyngeal cancer Cancer associated pain Oropharyngeal cancer Chief Complaint lump on neck - tende r right neck mass C76.0 right neck mass New - [facility] Cancer NEW - [place] unable to sleep [facility] Cancer Oropharyngeal Cancer [facility] Cancer Tonsil Cancer Tox check C10.9 [facility]onsil Cancer Tonsil Cancer Reason for Visit Maxillary sinusitis Swelling, mass, or lump in head and neck Oropharyngeal cancer Oropharyngeal cancer Acute insomnia Oropharyngeal cancer Cancer associated pain Encounter for palliative care Oropharyngeal cancer Cancer associated pain Oropharyngeal cancer Oropharyngeal cancer Cancer associated pain Oropharyngeal cancer Chief Complaint right neck mass C76.0 right neck mass New - [facility] NEW - [place] unable to sleep [facility] Cancer Oropharyngeal Cancer [facility]onsil Cancer T[facility]il Cancer Tox check [facility] Cancer C10.9 [facility] Cancer Tonsil Cancer Reason for Visit Oropharyngeal cancer Oropharyngeal cancer Acute insomnia Oropharyngeal cancer Cancer associated pain Encounter for palliative care Oropharyngeal cancer Cancer associated pain Oropharyngeal cancer Oropharyngeal cancer Cancer associated pain Oropharyngeal cancer Cancer associated pain Oropharyngeal cancer Chief Complaint right neck mass C76.0 right neck mass New - [facility] NEW - [place] unable to sleep [facility] Cancer Oropharyngeal Cancer [facility] Cancer T[facility]il Cancer Tox check [facility] Cancer C10.9 [facility] Cancer Tonsil Cancer 2 wk f/u Reason for Visit Oropharyngeal cancer Oropharyngeal cancer Acute insomnia Oropharyngeal cancer Cancer associated pain Encounter for palliative care Oropharyngeal cancer Cancer associated pain Oropharyngeal cancer Oropharyngeal cancer Cancer associated pain Oropharyngeal cancer Cancer associated pain Oropharyngeal cancer Chief Complaint right neck mass C76.0 right neck mass New - [facility] NEW - [place] unable to sleep [facility] Cancer Oropharyngeal Cancer [facility] Cancer Tonsil Cancer Tox check [facility] Cancer C10.9 [facility] Cancer 2 wk f/u Tonsil Cancer Tonsil Cancer Reason for Visit Oropharyngeal cancer Oropharyngeal cancer Acute insomnia Oropharyngeal cancer Cancer associated pain Encounter for palliative care Oropharyngeal cancer Cancer associated pain Oropharyngeal cancer Oropharyngeal cancer Cancer associated pain Oropharyngeal cancer Cancer associated pain Oropharyngeal cancer Acute insomnia Cancer associated pain Nausea Oropharyngeal cancer Chief Complaint right neck mass C76.0 right neck mass New - [facility] Cancer NEW - [place] unable to sleep [facility] Cancer Oropharyngeal Cancer Tonsil Cancer Tonsil Cancer Tonsil Cancer Tox check [facility] Cancer 2 wk f/u Tonsil Cancer C10.9 [facility] Cancer Follow Up Reason for Visit Oropharyngeal cancer Oropharyngeal cancer Acute insomnia Oropharyngeal cancer Cancer associated pain Encounter for palliative care Oropharyngeal cancer Cancer associated pain Oropharyngeal cancer Oropharyngeal cancer Cancer associated pain Oropharyngeal cancer Cancer associated pain Oropharyngeal cancer Oropharyngeal cancer Acute insomnia Cancer associated pain Nausea Oropharyngeal cancer Oropharyngeal cancer Chief Complaint right neck mass C76.0 right neck mass New - [facility] NEW - [place] unable to sleep [facility]ons[facility] Cancer Oropharyngeal Cancer Tonsil Cancer Tonsil Cancer Tonsil Cancer Tox check [facility]onsil Cancer 2 wk f/u Tonsil Cancer C10.9 [facility] Cancer Follow Up Tonsil Cancer Reason for Visit Oropharyngeal cancer Oropharyngeal cancer Acute insomnia Oropharyngeal cancer Cancer associated pain Encounter for palliative care Oropharyngeal cancer Cancer associated pain Oropharyngeal cancer Oropharyngeal cancer Cancer associated pain Oropharyngeal cancer Cancer associated pain Oropharyngeal cancer Oropharyngeal cancer Acute insomnia Cancer associated pain Nausea Oropharyngeal cancer Oropharyngeal cancer Cancer associated pain Oropharyngeal cancer Chief Complaint right neck mass C76.0 right neck mass New - [facility] Cancer NEW - [place] unable to sleep [facility]onsil Cancer Oropharyngeal Cancer Tonsil Cancer Tonsil Cancer Tonsil Cancer Tox check [facility] Cancer 2 wk f/u [facility]onsil Cancer C10.9 [facility] Cancer Follow Up Tonsil Cancer Tonsil Cancer Reason for Visit Oropharyngeal cancer Oropharyngeal cancer Acute insomnia Oropharyngeal cancer Cancer associated pain Encounter for palliative care Oropharyngeal cancer Cancer associated pain Oropharyngeal cancer Oropharyngeal cancer Cancer associated pain Oropharyngeal cancer Cancer associated pain Oropharyngeal cancer Oropharyngeal cancer Acute insomnia Cancer associated pain Nausea Oropharyngeal cancer Oropharyngeal cancer Cancer associated pain Oropharyngeal cancer Acute insomnia Cancer associated pain Oropharyngeal cancer Additional Source Comments (unrecognized sect ion and content) No Status Records FoundNo Status Records FoundNo Status Records FoundNo Status Records FoundNo Status Records FoundNo Status Records Found INFORMATION SOURCE (unrecogn ized section and content) DATE CREATED AUTHOR 03/26/2022 [facility] DATE CREATED AUTHOR AUTHOR'S ORGANIZ ATION 08/01/2022 [facility] DATE CREATED AUTHOR AUTHOR'S ORGANIZ ATION 05/08/2023 [facility] DATE CREATED AUTHOR AUTHOR'S ORGANIZ ATION 08/19/2023 [facility] DATE CREATED AUTHOR AUTHOR'S ORGANIZ ATION 02/19/2024 [facility] DATE CREATED AUTHOR AUTHOR'S ORGANIZ ATION 03/08/2024 [facility] Patient Care team informatio n (unrecognized section and content) Team Status: Active Member Role Status Dates Charly Hooper DO Primary Care Provider Active Team Status: Inactive Member Role Status Dates Charly Hooper DO Primary Care Provider Active Start: November 13, 2023 End: November 13, 2023 Katy Mcdonald APRN [employer] SCI[employer]IST-C Attending Provider Act candice Start: November 13, 2023 End: November 13, 2023 Team Status: Inactive Member Role Status Dates Charly Hooper DO Primary Care Provider Active Start: December 23, 2023 End: December 23, 2023 Charly Nowak DO Attending Provider Active S tart: December 23, 2023 End: December 23, 2023 Team Status: Inactive Member Role Status Dates Charly Hooper DO Primary Care Provider Active Start: December 24, 2023 End: December 24, 2023 Charly Nowak DO Attending Provider Active S tart: December 24, 2023 End: December 24, 2023 Team Status: Inactive Member Role Status Dates Charly Hooper DO Primary Care Provider Active Start: December 25, 2023 End: December 25, 2023 Charly Nowak DO Attending Provider Active S tart: December 25, 2023 End: December 25, 2023 Team Status: Active Member Role Status Dates Charly Hooper DO Primary Care Provider Active Start: January 07, 2024 Karly Nielsen MD Attending Provider Active Start: January 07, 2024 Charly Nowak DO Referring Provider Active S tart: January 07, 2024 Team Status: Inactive Member Role Status Dates Charly Hooper DO Primary Care Provider Active Start: January 07, 2024 End: January 07, 2024 Marbella Muñoz MD Attending Provider Active Start: January 07, 2024 End: January 07, 2024 Charly Nowak DO Referring Provider Active S tart: January 07, 2024 End: January 07, 2024 Team Status: Inactive Member Role Status Dates Charly Hooper DO Primary Care Provider Active Start: January 07, 2024 End: January 07, 2024 Kraly Nielsen MD Attending Provider Active Start: January 07, 2024 End: January 07, 2024 Charly Nowak DO Referring Provider Active S tart: January 07, 2024 End: January 07, 2024 Team Status: Active Member Role Status Dates Charly Hooper DO Primary Care Provider Active Start: January 07, 2024 Marbella Muñoz MD Attending Provider Active Start: January 07, 2024 Charly Nowak DO Referring Provider Active S tart: January 07, 2024 Team Status: Inactive Member Role Status Dates Charly Hooper DO Primary Care Provider Active Start: January 12, 2024 End: January 12, 2024 Katy Mcdonald APRN [employer] SCIENTIST-C Attending Provider Act candice Start: January 12, 2024 End: January 12, 2024 Team Status: Active Member Role Status Dates Charly Hooper DO Primary Care Provider Active Start: January 13, 2024 Karly Nielsen MD Other Provider Active Start: January 13, 2024 Charly Nowak DO Referring Provider Active S tart: January 13, 2024 Marbella Muñoz MD Attending Provider Active Start: January 13, 2024 Team Status: Active Member Role Status Dates Charly Hooper DO Primary Care Provider Active Start: January 14, 2024 Karly Nielsen MD Attending Provider Active Start: January 14, 2024 Charly Nowak DO Referring Provider Active S tart: January 14, 2024 Team Status: Inactive Member Role Status Dates Charly Hooper DO Primary Care Provider Active Start: January 20, 2024 End: January 20, 2024 Nohemi Hudson DO Attending Provider Active Start: January 20, 2024 End: January 20, 2024 Team Status: Active Member Role Status Dates Charly Hooper DO Primary Care Provider Active Start: January 21, 2024 Karly Nielsen MD Other Provider Active Start: January 21, 2024 Charly Nowak DO Referring Provider Active S tart: January 21, 2024 Marbella Muñoz MD Attending Provider Active Start: January 21, 2024 Team Status: Active Member Role Status Dates Charly Hooper DO Primary Care Provider Active Start: January 27, 2024 Karly Nielsen MD Attending Provider Active Start: January 27, 2024 Charly Nowak DO Referring Provider Active S tart: January 27, 2024 Marbella Muñoz MD Active Star t: January 27, 2024 Team Status: Inactive Member Role Status Dates Charly Hooper DO Primary Care Provider Active Start: January 27, 2024 End: January 27, 2024 Mili Squires APRN Attending Provider Active Start: January 27, 2024 End: January 27, 2024 Team Status: Active Member Role Status Dates Charly Hooper DO Primary Care Provider Active Start: January 27, 2024 Mili Squires APRN Attending Prov ider, Other Provider Active Start: January 27, 2024 Team Status: Active Member Role Status Dates Charly Hooper DO Primary Care Provider Active Start: January 28, 2024 Charly Nowak DO Referring Provider Active S tart: January 28, 2024 Marbella Muñoz MD Attending [facility] er, Other Provider Active Start: January 28, 2024 Team Status: Inactive Member Role Status Dates Charly Hooper DO Primary Care Provider Active Start: February 02, 2024 End: February 02, 2024 Mili Squires APRN Attending Provider Active Start: February 02, 2024 End: February 02, 2024 Team Status: Active Member Role Status Dates Charly Hooper DO Primary Care Provider Active Start: February 02, 2024 Mili Squires APRN Attending Prov ider, Other Provider Active Start: February 02, 2024 Team Status: Active Member Role Status Dates Charly Hooper DO Primary Care Provider Active Start: February 02, 2024 Charly Nowak DO Referring Provider Active S tart: February 02, 2024 Marbella Muñoz MD Active Star t: February 02, 2024 Karly Nielsen MD Attending Provider Active Start: February 02, 2024 Team Status: Inactive Member Role Status Dates Charly Hooper DO Primary Care Provider Active Start: February 03, 2024 End: February 03, 2024 Anamaria Grant APRN Attending Provider Acti ve Start: February 03, 2024 End: February 03, 2024 Team Status: Active Member Role Status Dates Charly Hooper DO Primary Care Provider Active Start: February 03, 2024 Charly Nowak DO Referring Provider Active S tart: February 03, 2024 Marbella Muñoz MD Active Star t: February 03, 2024 Karly Nielsen MD Attending Provider Active Start: February 03, 2024 Team Status: Active Member Role Status Dates Charly Hooper DO Primary Care Provider Active Start: February 03, 2024 Marbella Muñoz MD Attending Provider Active Start: February 03, 2024 Team Status: Active Member Role Status Dates Charly Hooper DO Primary Care Provider Active Start: February 04, 2024 Charly Nowak DO Referring Provider Active S tart: February 04, 2024 Marbella Muñoz MD Attending Provid er, Other Provider Active Start: February 04, 2024 [address] MD Active St art: February 04, 2024 Team Status: Inactive Member Role Status Dates Charly Hooper DO Primary Care Provider Active Start: February 09, 2024 End: February 09, 2024 Mili Squires APRN Attending Provider Active Start: February 09, 2024 End: February 09, 2024 Team Status: Active Member Role Status Dates Charly Hooper DO Primary Care Provider Active Start: February 09, 2024 Mili Squires APRN Attending Prov ider, Other Provider Active Start: February 09, 2024 Team Status: Active Member Role Status Dates Charly Hooper DO Primary Care Provider Active Start: February 09, 2024 Charly Nowak DO Referring Provider Active S tart: February 09, 2024 Marbella uMñoz MD Active Star t: February 09, 2024 Karly Nielsen MD Attending Provider Active Start: February 09, 2024 Team Status: Active Member Role Status Dates Charly Hooper DO Primary Care Provider Active Start: February 10, 2024 Marbella Muñoz MD Attending Provider Active Start: February 10, 2024 Team Status: Active Member Role Status Dates Charly Hooper DO Primary Care Provider Active Start: February 11, 2024 Charly Nowak , DO Referring Provider Active S tart: February 11, 2024 Marbella Muñoz MD Attending Provid er, Other Provider Active Start: February 11, 2024 K[address] MD Active St art: February 11, 2024 Team Status: Inactive Member Role Status Dates Charly Hooper DO Primary Care Provider Active Start: February 16, 2024 End: February 16, 2024 Mili Squires APRN Attending Provider Active Start: February 16, 2024 End: February 16, 2024 Team Status: Active Member Role Status Dates Charly Hooper DO Primary Care Provider Active Start: February 16, 2024 Mili Squires APRN Attending Prov ider, Other Provider Active Start: February 16, 2024 Team Status: Active Member Role Status Dates Charly Hooper DO Primary Care Provider Active Start: February 16, 2024 Charly Nowak DO Referring Provider Active S tart: February 16, 2024 Marbella Muñoz MD Attending Provider Active Start: February 16, 2024 [address] MD Active St art: February 16, 2024 Team Status: Active Member Role Status Dates Charly Hooper DO Primary Care Provider Active Start: February 17, 2024 Charly Nowak DO Referring Provider Active S tart: February 17, 2024 Marbella Muñoz MD Active Star t: February 17, 2024 Karly Nielsen MD Attending Provider Active Start: February 17, 2024 Team Status: Inactive Member Role Status Dates Charly Hooper DO Primary Care Provider Active Start: February 17, 2024 End: February 17, 2024 Anamaria Grant APRN Attending Provider Acti ve Start: February 17, 2024 End: February 17, 2024 Team Status: Active Member Role Status Dates Charly Hooper DO Primary Care Provider Active Start: February 18, 2024 Charly Nowak DO Referring Provider Active S tart: February 18, 2024 Marbella Muñoz MD Attending Provider Active Start: February 18, 2024 Karly Nielsen MD Other Provider Active Start: February 18, 2024 Team Status: Inactive Member Role Status Dates Charly Hooper DO Primary Care Provider Active Start: February 23, 2024 End: February 23, 2024 Mili Squires APRN Attending Provider Active Start: February 23, 2024 End: February 23, 2024 Team Status: Active Member Role Status Dates Charly Hooper DO Primary Care Provider Active Start: February 23, 2024 Mili Squires APRN Attending Prov ider, Other Provider Active Start: February 23, 2024 Team Status: Active Member Role Status Dates Charly Hooper DO Primary Care Provider Active Start: February 23, 2024 Charly Nowak DO Referring Provider Active S tart: February 23, 2024 Marbella Muñoz MD Active Star t: February 23, 2024 Karly Nielsen MD Attending Provider Active Start: February 23, 2024 Team Status: Active Member Role Status Dates Charly Hooper DO Primary Care Provider Active Start: January 27, 2024 Charly Nowak DO Referring Provider Active S tart: January 27, 2024 Marbella Muñoz MD Attending Provid er, Other Provider Active Start: January 27, 2024 Team Status: Active Member Role Status Dates Charly Hooper DO Primary Care Provider Active Start: February 02, 2024 Charly Nowak DO Referring Provider Active S tart: February 02, 2024 Marbella Muñoz MD Attending Provid er, Other Provider Active Start: February 02, 2024 [address] MD Active St art: February 02, 2024 Team Status: Active Member Role Status Dates Charly Hooper DO Primary Care Provider Active Start: February 24, 2024 Marbella Muñoz MD Attending Provider Active Start: February 24, 2024 Team Status: Active Member Role Status Dates Charly Hooper DO Primary Care Provider Active Start: February 25, 2024 Charly Nowak DO Referring Provider Active S tart: February 25, 2024 Marbella Muñoz MD Active Star t: February 25, 2024 Karly Nielsen MD Attending Provider Active Start: February 25, 2024 Team Status: Inactive Member Role Status Dates Charly Hooper DO Primary Care Provider Active Start: February 25, 2024 End: February 25, 2024 Karly Nielsen MD Attending Provider Active Start: February 25, 2024 End: February 25, 2024 Team Status: Active Member Role Status Dates Charly Hooper DO Primary Care Provider Active Start: February 25, 2024 Charly Nowak DO Referring Provider Active S tart: February 25, 2024 Marbella Muñoz MD Attending Provider Active Start: February 25, 2024 Karly Nielsen MD Other Provider Active Start: February 25, 2024 Team Status: Inactive Member Role Status Dates Charly Hooper DO Primary Care Provider Active Start: March 01, 2024 End: March 01, 2024 Mili Squires APRN Attending Provider Active Start: March 01, 2024 End: March 01, 2024 Team Status: Active Member Role Status Dates Charly Hooper DO Primary Care Provider Active Start: March 01, 2024 Mili Squires APRN Attending Prov ider, Other Provider Active Start: March 01, 2024 Team Status: Active Member Role Status Dates Charly Hooper DO Primary Care Provider Active Start: March 01, 2024 Charly Nowak DO Referring Provider Active S tart: March 01, 2024 Marbella Muñoz MD Active Star t: March 01, 2024 Karly Nielsen MD Attending Provider Active Start: March 01, 2024 Team Status: Active Member Role Status Dates Charly Hooper DO Primary Care Provider Active Start: March 03, 2024 Charly Nowak DO Referring Provider Active S tart: March 03, 2024 Marbella Muñoz MD Attending Provid er, Other Provider Active Start: March 03, 2024 Karly [address] MD Active St art: March 03, 2024 Team Status: Active Member Role Status Dates Charly Hooper DO Primary Care Provider Active Start: March 05, 2024 Charly Nowak DO Referring Provider Active S tart: March 05, 2024 Marbella Muñoz MD Active Star t: March 05, 2024 Karly Nielsen MD Attending Provider Active Start: March 05, 2024 Team Status: Inactive Member Role Status Dates Charly Hooper , Primary Care Provider Active Start: March 08, 2024 End: March 08, 2024 Mili Squires APRN Attending Provider Active Start: March 08, 2024 End: March 08, 2024 Team Status: Active Member Role Status Dates Chalry Hooper DO Primary Care Provider Active Start: March 08, 2024 Mili Squires APRN Attending Prov ider, Other Provider Active Start: March 08, 2024 Goals (unrecognized section and content) Goals may be documented in a n alternate section FOR RECORDS PERTAINING TO PATIENTS WHO ARE [...] BE BASED ON THE PRIMARY CLINICAL RECORDS. [employer] provides no warranty or guarantee of the accuracy or completeness of information in this document.
--- NOTE | 2024-03-09 15:27 | ECG_ITS ---
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
--- NOTE | 2024-03-09 15:28 | ED_ITS ---
HPI - Dizziness General Chief Complaint: Dizziness Stated Complaint: Dizziness Time Seen by Provider: 03/09/24 15:16 Source: patient Mode of arrival: Wheelchair Limitations: no limitations History of Present Illness HPI Narrative: 58 year old male presents to the ED for dizziness, dehydration. 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 He received chemotherapy last week and radiation this morning. Denies fever, chills, CP, SOB, TATE, vision changes. He has had poor fluid intake. Denies pain, nausea. Related Data Home Medications ?Medication ?Instructions ?Recorded ?Confirmed amlodipine 10 mg tablet mg 12/22/22 apixaban 5 mg tablet (Eliquis) mg 12/22/22 carvedilol 25 mg tablet mg 12/22/22 furosemide 40 mg tablet mg 12/22/22 losartan 100 mg tablet mg 12/22/22 omeprazole 20 mg capsule,delayed mg 12/22/22 release Previous Rx's ?Medication ?Instructions ?Recorded tramadol 50 mg tablet 50 mg PO Q8H PRN pain #14 tabs 12/22/22 Allergies Allergy/AdvReac Type Severity Reaction Status Date / Time acetaminophen [From Percocet] AdvReac Mild itchy Verified 03/09/24 15:10 oxycodone [From Percocet] AdvReac Mild itchy Verified 03/09/24 15:10 Review of Systems ROS Constitutional Reports: fatigue; Denies: fever or chills Cardiovascular Denies: chest pain or palpitations Respiratory Denies: shortness of breath or cough Gastrointestinal Denies: nausea, vomiting or diarrhea Neurological Reports: dizziness; Denies: headache or weakness in extremities PFSH PFSH Social History Smoking status: Former smoker Exam Constitutional Vital Signs, click to edit/add: Last Vital Signs Temp 98.1 F 03/09/24 15:10 Pulse 79 03/09/24 17:30 Resp 23 H 03/09/24 17:30 BP 114/72 03/09/24 17:30 Pulse Ox 99 03/09/24 17:30 O2 Del Method Room Air 03/09/24 15:10 Common normals: no apparent distress and oriented x3 General appearance: cooperative HENTX Common normals: normocephalic Mouth: other (MM dry) Eye Common normals: conjunctivae normal and no scleral icterus Neck & C-Spine Common normals: supple Chest Chest: symmetrical chest wall rise Respiratory Common normals: normal respiratory effort and clear to auscultation bilaterally Cardio Common normals: regular rate and regular rhythm Neuro Common normals: oriented x3 and moves all extremities Sensorium/orientation: awake and alert Course Vital Signs Vital signs: Vital Signs Blood Pressure 121/87 03/09/24 15:07 Pulse Oximetry 98 03/09/24 15:07 Temperature 98.1 F 03/09/24 15:10 Pulse Rate 79 03/09/24 17:30 Respiratory Rate 23 H 03/09/24 17:30 Blood Pressure 114/72 03/09/24 17:30 Pulse Oximetry 99 03/09/24 17:30 Oxygen Delivery Method Room Air 03/09/24 15:10 MDM - Dizziness MDM Narrative Medical decision making narrative: Potassium was 2.6, magnesium 1.2. BUN was 28, creatinine 1.5. He was given IV fluids, IV potassium, and IV magnesium. He preferred to be discharged home. He has an appointment with his oncologist in the morning. Follow up as scheduled. Return to ED if condition worsens. Differential Diagnosis Differential diagnosis: Likely other (Dehydration, electrolyte abnormality) Medical Records Attestation: I reviewed the patient's medical records. Lab Data Attestation: I reviewed the patient's lab results. Labs: Lab Results 03/09/24 Range/Units 15:27 WBC 2.7 L (4.0-11.0) 10^3/uL RBC 3.89 L (4.70-6.10) 10^6/uL Hgb 12.9 L (14.0-18.0) g/dL Hct 35.1 L (42.0-54.0) % MCV 90.2 (80.0-94.0) fL MCH 33.2 (25.9-34.0) pg MCHC 36.8 H (29.9-35.2) g/dL RDW 11.7 (11.0-15.0) % Plt Count 188 (150-450) 10^3/uL MPV 9.1 L (9.5-13.5) fL Neut % (Auto) 61.3 (43.0-75.0) % Lymph % (Auto) 12.4 L (20.5-60.0) % [place] % (Auto) 25.1 H (1.7-12.0) % Eos % (Auto) 0.4 L (0.9-7.0) % Baso % (Auto) 0.4 (0.2-2.0) % Neut # (Auto) 1.6 (1.4-6.5) 10^3/uL Lymph # (Auto) 0.3 L (1.2-3.8) 10^3/uL [place] # (Auto) 0.7 (0.3-0.8) 10^3/uL Eos # (Auto) 0.0 (0.0-0.7) 10^3/uL Baso # (Auto) 0.0 (0.0-0.1) 10^3/uL Abs Immat Gran (auto) 0.01 (0.00-0.03) 10^3/uL Imm/Tot Granulo (auto) 0.4 (0.0-0.5) % Sodium 136 (136-145) mmol/L Potassium 2.6 L* (3.5-5.1) mmol/L Chloride 93 L (98-107) mmol/L Carbon Dioxide 24.6 (21.0-32.0) mmol/L Anion Gap 21.0 BUN 28.0 H (7.0-18.0) mg/dL Creatinine 1.58 H (0.70-1.30) mg/dL Est GFR ( Amer) 55 L (>=60) Est GFR (Non-Af Amer) 45 L (>=60) BUN/Creatinine Ratio 17.7 Glucose 120 H (74-106) mg/dL Calcium 9.2 (8.5-10.1) mg/dL Magnesium 1.2 L (1.8-2.4) mg/dL Total Bilirubin 0.8 (0.2-1.0) mg/dL AST 47 H (15-37) U/L ALT 111 H (16-63) U/L Alkaline Phosphatase 74 (46-116) U/L Total Protein 7.4 (6.4-8.2) g/dL Albumin 3.9 (3.4-5.0) g/dL Globulin 3.5 g/dL Albumin/Globulin Ratio 1.1 ECG Data Attestation: ?I have reviewed the pertinent ECG results. (EKG was reviewed by the attending physician. It showed sinus rhythm at a rate of 99. No acute ST segment changes. ) Interpretation: Measurements Intervals [place] Rate: 99 P: 62 HI: 178 QRS: 10 QRSD: 94 T: 59 QT: 352 QTc: 408 Interpretive Statements 1100 Sinus rhythm [address] depression 9150 abnormal ECG No previous ECG available for comparison Discharge Plan Discharge Stand Alone Forms: Work/School Release, Portal Instructions Chief Complaint: Dizziness Clinical Impression: Dehydration, Hypokalemia, Hypomagnesemia Patient Disposition: Home, Self-Care Time of Disposition Decision: 17:47 Condition: Good Mode of Transportation: Private Vehicle Prescriptions / Home Meds: No Action furosemide 40 mg tablet carvedilol 25 mg tablet amlodipine 10 mg tablet omeprazole 20 mg capsule,delayed release(DR/EC) losartan 100 mg tablet Eliquis 5 mg tablet tramadol 50 mg tablet 50 mg PO Q8H PRN (Reason: pain) Qty: 14 0RF Print Language: [place] Additional Instructions: Follow up tomorrow as scheduled. Return to the ER if your condition worsens. Referrals: Charly Segovia DO [Primary Care Provider] - 1 week Discharge Date/Time: 03/09/24 17:59
[2024-03-09] MEDS: 0.9 % SODIUM CHLORIDE 1,000 ML 999 ML IV (15:34)
[2024-03-09 15:46] LABS: Basophils Percent Auto 0.4 % (0.2-2.0); Eosinophils Percent Auto 0.4 % (0.9-7.0); Hematocrit 35.1 % (42.0-54.0); Hemoglobin 12.9 g/dL (14.0-18.0); Immature Granulocytes Abs Auto 0.01 10^3/uL (0.00-0.03); Immature Granulocytes Pct Auto 0.4 % (0.0-0.5); Lymphocytes Absolute Auto 0.3 10^3/uL (1.2-3.8); Lymphocytes Percent Auto 12.4 % (20.5-60.0); Mean Corpuscular HGB Conc 36.8 g/dL (29.9-35.2); Mean Corpuscular Hemoglobin 33.2 pg (25.9-34.0); Mean Corpuscular Volume 90.2 fL (80.0-94.0); Mean Platelet Volume 9.1 fL (9.5-13.5); Monocytes Absolute Auto 0.7 10^3/uL (0.3-0.8); Monocytes Percent Auto 25.1 % (1.7-12.0); Neutrophils Absolute Auto 1.6 10^3/uL (1.4-6.5); Neutrophils Percent Auto 61.3 % (43.0-75.0); Platelet Count 188 10^3/uL (150-450); Red Blood Count 3.89 10^6/uL (4.70-6.10); Red Cell Distribution Width 11.7 % (11.0-15.0); White Blood Count 2.7 10^3/uL (4.0-11.0)
[2024-03-09 15:58] LABS: Alanine Aminotransferase 111 U/L (16-63); Albumin Globulin Ratio 1.1; Albumin Level 3.9 g/dL (3.4-5.0); Alkaline Phosphatase 74 U/L (46-116); Aspartate Amino Transferase 47 U/L (15-37); BUN Creatinine Ratio 17.7; Bilirubin Total 0.8 mg/dL (0.2-1.0); Calcium 9.2 mg/dL (8.5-10.1); Carbon Dioxide 24.6 mmol/L (21.0-32.0); Chloride 93 mmol/L (98-107); Estimated GFR (African America 55 (>=60); Estimated GFR (Non-African Ame 45 (>=60); Globulin 3.5 g/dL; Glucose 120 mg/dL (74-106); Sodium 136 mmol/L (136-145); Total Protein 7.4 g/dL (6.4-8.2)
[2024-03-09 16:03] LABS: Potassium 2.6 mmol/L (3.5-5.1)
[2024-03-09] MEDS: POTASSIUM CHLORIDE IN WATER 10 MEQ/100 ML PREMIX 100 MEQ IV (16:20)
[2024-03-09 16:21] LABS: Magnesium 1.2 mg/dL (1.8-2.4)
[2024-03-09] MEDS: 0.9 % SODIUM CHLORIDE 1,000 ML 1000 ML IV (16:21)
[2024-03-09] MEDS: MAGNESIUM SULFATE IN WATER 2 GM/50 ML PREMIX IV (17:13)
[2024-03-09] MEDS: HEPARIN SODIUM (PORCINE) PF LOCK FLUSH 500 UNIT/5 ML SYRINGE IV (17:51)
== END 2024-03-09 17:59 | disposition home or self-care (01) ==
PROVIDERS: Nurse Practitioner Family; Emergency Provider Emergency Medicine; PCP Internal Medicine
DX: E86.0 Dehydration (principal); E87.6 Hypokalemia; E83.42 Hypomagnesemia; Z79.60 Long term (current) use of unspecified immunomodulators and immunosuppressants; Z79.899 Other long term (current) drug therapy; Z87.891 Personal history of nicotine dependence; C76.0 Malignant neoplasm of head, face and neck
CPT/HCPCS: 36415; 80053; 83735; 85025; 93005; 96361; 96365; 96375; 99285; J1642; J3475; J3480

== ENCOUNTER 2024-07-19 09:08 | Outpatient (OUT) | payer BC, SELFPAY ==
--- OUTSIDE RECORDS SUMMARY | 2024-07-17 08:12 | XMS_ITS | CCD ---
Author Organization [facility] Care Team Providers Care Lighting Technician Name Role Phone CHARLY HOOPER Referring Unavailable BALL, CHARLY Primary Care Unavailable PROMISE, THEO Attending Unavailable PROMISE, THEO Admitting Unavailable BALL, CHARLY Primary Care Unavailable SANDIE, CHARLY Referring Unavailable PROMISE, THEO Attending Unavailable PROMISE, THEO Admitting Unavailable MONIQUE, DR LEVINE Admitting Unavailable MONIQUE, DR LEVINE Attending Unavailable MONIQUE, DR LEVINE Consulting Unavailable SANDIE, DR DE LUNA Primary Care Unavailable BALL, [...] THEO Consulting Unavailable STELLA ATWOOD Admitting Unavailable SANDIE, DR DE LUNA Primary Care Unavailable STELLA ATWOOD Attending Unavailable STELLA ATWOOD Consulting Unavailable CHARLY HOOPER Primary Care Physician VINCENT MOLINA Attending Unavailable STELLA ATWOOD Attending Unavailable ADOLFO CANTU Attending Unavailable Abner MONIQUE Attending Unavailable Abner MONIQUE Attending Unavailable DO Charly Hooper Primary Care Provider DO Charly Nowak Attending Provider [phone] MD Karly Nielsen Attending Provider DO Charly Nowak Referring Provider MD Karly Nielsen Attending Provider DO Charly Nowak Referring Provider [phone] DO Nohemi Vizcaino Attending Provider [phone] MD Karly Nielsen Attending Provider She, DO Charly Referring Provider MIGUEL Squires Attending Provider Murjaiden, DO Charly Referring Provider MD Karly Nielsenser Attending Provider Murjaiden, DO Charly Referring Provider [phone] MD Karly Nielsen Attending Provider MD Marbella Muñoz Attending Provider She, DO Charly Referring Provider MD Karly Nielsenser Attending Provider [phone] MD Marbella Muñoz Attending Provider She, DO Charly Referring Provider She, DO Charly Referring Provider MD Karly Nielsenser Attending Provider She, DO Charly Referring Provider MD Karly Nielsenser Attending Provider [phone] MD Marbella Muñoz Attending Provider She, DO Charly Referring Provider MD Karly Nielsen Attending Provider She, DO Charly Referring Provider MD Karly Nielsen Attending Provider She, DO Charly Referring Provider MD Karly Nielsen Attending Provider [phone] She, DO Charly Referring Provider MD Karly Nielsenser Attending Provider DO Charly Hooper Primary Care Provider [phone] Murcek, DO Charly Referring Provider [phone] MD Karly Nielsen Attending Provider [phone] Sandie URBINA, Charly E Primary Care Provider Murcek DO, Charly W Unavailable Mateo Moraes MD Unavailable [phone] APLING, NADJA Griffiths Attending Unavailable APLING, NADJA Griffiths Attending Unavailable APLING, NADJA B Attending Unavailable APLING, NADJA B Attending Unavailable TIMMIS, MATEO H Attending Unavailable MURCEK, CHARLY W Attending Unavailable TIMMIS, MATEO H Referring Unavailable MURCEK, CHARLY W Attending Unavailable MURCEK, CHARLY W Attending Unavailable JYOTI GRIFFIN Attending Unavailable ITNOHEMI DANIELS Attending Unavailable MACARENA SAAB Attending Unavailable MURCEK, CHARLY W Attending Unavailable TIMMIS, MATEO H Referring Unavailable MURCEK, CHARLY W Attending Unavailable MURCEK, CHARLY W Attending Unavailable TIMMIS, MATEO H Referring Unavailable MURCEK, CHARLY W Attending Unavailable TIMMIS, MATEO H Referring Unavailable Apling DIRECTOR INSTRUCTIONAL MATERIAL, Nadja Griffiths Unavailable Mili Squires Admitting Unavailable Ball, Charly Primary Care Unavailable Mili Squires Attending Unavailable Toni, Norleena R Admitting Unavailable Ball, Charly Primary Care Unavailable Toni, Norleena R Attending Unavailable Ball, Charly Primary Care Unavailable Murcek, Charly Referring Unavailable Toni, Norleena R Attending Unavailable Toni, Norleena R Admitting Unavailable Ball, Charly Primary Care Unavailable Mili Squires Attending Unavailable Mili Squires Admitting Unavailable Ball, Charly Primary Care Unavailable Mili Squires Attending Unavailable Mili Squires Admitting Unavailable Ball, Charly Primary Care Unavailable Mili Squires Attending Unavailable ShawMili hernandez Admitting Unavailable Ball, Charly Primary Care Unavailable Mili Squires Attending Unavailable Mili Squires Admitting Unavailable Ball, Charly Primary Care Unavailable Murcek, Charly Admitting Unavailable Murcek, Charly Attending Unavailable Murcek, Charly Admitting Unavailable Charly Nowak Attending Unavailable Sandie, Charly Primary Care Unavailable Sandie, Charly Primary Care Unavailable Shelbiemercedes, Charly Admitting Unavailable Charly Nowak Attending Unavailable Nohemi Vizcaino Admitting Unavailable Sandie, Charly Primary Care Unavailable Tristan, Nohemi Attending Unavailable Mili Squires Admitting Unavailable Mili Squires Attending Unavailable Charly Hooper Primary Care Unavailable Sandie, Charly Primary Care Unavailable Mili Squires Admitting Unavailable Mili Squires Attending Unavailable Allergies Allergy Classification Reported Allergen(s) Allergy Type Date of Onset Reaction(s) Facility Acetaminophen (2 sources) Acetaminophen Drug Allergy 4 [facility] Opioid Agonists (2 sources) oxyCODONE Drug Allergy 4 [facility] (1 source) Acetaminophen / oxyCODONE Drug Allergy 2 [facility] Repository (20 sources) oxyCODONE; Translations: [oxyCODONE] Drug Allergy 4 [facility] Repository (11 sources) oxyCODONE; Translations: [oxycodone] Drug Allergy 2 Itching (finding), Itching [facility] (1 source) Acetaminophen / oxyCODONE; Translations: [OXYCODONE-ACETAM INOPHEN] Drug Allergy 2 [facility] Repository (20 sources) Acetaminophen; Translations: [acetaminophen] Drug Allergy 4 [facility] (1 source) oxyCODONE Drug Allergy 4 [facility] Repository Medications Current Medications Medication Drug Class(es) Dates Sig (Normalized) Sig (Original) acetaminophen 325 mg oral tablet (9 sources) acetaminophen (Tylenol) 325 MG tablet Take by mouth. Active amiodarone hydrochloride 200 mg oral tablet (20 sources) Antiarrhythmic Start: 12-23-2023 take 1 tablet by mouth every other day Amiodarone 200 mg tablet Active 200 MG PO .every other day December 22, 2023 11:00pm Start: 08-18-2023 take 1 mg by mouth once daily amiodarone 200 mg Tab mg tab(s), Oral, Daily, Refills(s) 0 Start Date: 08/18/23 Status: Ordered amLODIPine 10 mg oral tablet (20 sources) Dihydropyridine Calcium Channel Tanner Start: 06-17-2022 take 1 tablet by mouth once daily in the morning Amlodipine 10 mg tablet Active 10 MG PO Every morning December 22, 2023 11:00pm Start: 04-28-2019 amlodipine Ora l, Daily, Refills(s) 0 Start Date: 04/28/19 Status: Ordered apixaban 5 mg oral tablet (20 sources) Factor Xa Inhibitor Start: 12-23-2023 take 1 tablet by mouth twice daily Apixaban (Eliquis) 5 mg tablet Active 5 MG PO Twice daily December 22, 2023 11:00pm Start: 08-18-2023 Eliquis 5 mg o ral tablet Refills(s) 0 Start Date: 08/18/23 Status: Ordered Start: 04-28-2019 Eliquis Oral, BID, Refills(s) 0 Start Date: 04/28/19 Status: Ordered carvedilol 25 mg oral tablet (20 sources) alpha-Adrenergic Tanner, beta-Adrenergic Tanner Start: 09-21-2023 take 1 tablet by mouth twice daily Carvedilol 25 mg tablet Active 25 MG PO Twice daily December 22, 2023 11:00pm Start: 08-18-2023 carvedilol 25 mg Tab Refills(s) 0 Start Date: 08/18/23 Status: Ordered Start: 04-28-2019 carvedilol Ora l, Refills(s) 0 Start Date: 04/28/19 Status: Ordered cyclobenzaprine hydrochloride 10 mg oral tablet (17 sources) Muscle Relaxant Start: 02-19-2024 End: 06-10-2024 cyclobenzaprine (Flexeril) 10 MG tablet Daily at bedtime 02/19/2024 Active docosahexaenoic acid 120 mg / eicosapentaenoic acid 180 mg oral capsule (9 sources) omega-3 (Fish Oi l) 1000 MG capsule 1 capsule 1 (one) time each day at the same time. Active fluconazole 200 mg oral tablet (13 sources) Azole Antifungal Start: 03-18-2024 End: 06-10-2024 fluconazole (Diflucan) 200 MG tablet Daily 03/18/2024 Active furosemide 40 mg oral tablet (20 sources) Loop Diuretic Start: 12-23-2023 End: 03-25-2025 take 1 tablet by mouth in the morning furosemide (Lasix) 40 MG tablet Take 40 mg by mouth in the morning. 03/25/2024 03/25/2025 Active Start: 08-18-2023 furosemide 40 mg Tab Refills(s) 0 Start Date: 08/18/23 Status: Ordered Start: 08-09-2022 furosemide 40 mg Tab Refills(s) 0 Start Date: 08/09/22 Status: Ordered ibuprofen 600 mg oral tablet (20 sources) Nonsteroidal Anti-inflammatory Drug Start: 01-20-2024 take 1 tablet by mouth every six hours as needed ibuprofen 600 MG tablet Take 600 mg by mouth every 6 (six) hours if needed 01/20/2024 Active Start: 01-20-2024 take 4 tablets by mo ut every twenty-four hours for pain Ibuprofen 600 mg tablet Active 600 MG PO EVERY 4-6 HOURS as needed for pain 14 3 January 19, 2024 11:00pm do not exceed 4 doses in a 24 hour period linseed oil 1000 mg oral capsule (9 sources) Flaxseed, Linsee d, (Flax Seed Oil) 1000 MG capsule Orally Active losartan potassium 100 mg oral tablet (20 sources) Angiotensin 2 Receptor Tanner Start: 06-17-2022 take 1 tablet by mouth once daily in the morning Losartan 100 mg tablet Active 100 MG PO Every morning December 22, 2023 11:00pm Start: 04-28-2019 losartan Oral, Daily, Refills(s) 0 Start Date: 04/28/19 Status: Ordered mometasone furoate 1 mg/ml topical cream (20 sources) Corticosteroid Start: 01-07-2024 End: 06-10-2024 Mometasone 0.1 % cream Discontinued 1 APPLIC TOPICAL Daily January 06, 2024 11:00pm June 10, 2024 11:35am Apply to radiation site, once a day, AFTER radiation treatments. Start: 01-07-2024 mometasone (El sally) 0.1 % cream Apply topically Daily 01/07/2024 Active nystatin 223759 unt/ml oral suspension (5 sources) Polyene Antifungal Start: 04-09-2024 take 5 mL by mouth three times daily nystatin (Mycostatin) 072127 UNIT/ML suspension TAKE 5 ML ORALLY THREE TIMES DAILY SWISH AND SPIT OR SWALLOW 04/09/2024 Active omeprazole 20 mg delayed release oral capsule (20 sources) Proton Pump Inhibitor Start: 01-21-2024 Omeprazole 20 mg capsule,delayed release(DR/EC) Active 0 .ROUTE .COMPLEX 90 January 21, 2024 4:54pm TAKE 1 CAPSULE DAILY ON AN EMPTY STOMACH FOLLOWED IN 30 MINUTES BY BREAKFAST FOR 90 DAYS Start: 07-23-2023 End: 01-21-2024 take 1 capsule by mouth once daily as needed for gastroesophageal reflux disease Omeprazole 20 mg capsule,delayed release(DR/EC) Discontinued 20 MG PO Daily as needed for GERD November 11, 2023 11:00pm January 21, 2024 4:54pm Start: 08-09-2022 omeprazole 20 mg Cap-DR Refills(s) 0 Start Date: 08/09/22 Status: Ordered ondansetron 8 mg disintegrating oral tablet (20 sources) Serotonin-3 Receptor Antagonist Start: 01-07-2024 End: 06-10-2024 take 1 tablet by mouth every eight hours as needed ondansetron ODT (Zofran-ODT) 8 MG disintegrating tablet Take 8 mg by mouth every 8 (eight) hours if needed 01/07/2024 Active potassium chloride 10 meq extended release oral tablet (12 sources) Start: 03-10-2024 End: 06-10-2024 take 1 tablet by mouth once daily potassium chloride CR (Klor-Con) 10 MEQ ER tablet Take 10 mEq by mouth Daily 03/10/2024 Active prochlorperazine 10 mg oral tablet (20 sources) Phenothiazine Start: 01-07-2024 End: 06-10-2024 take 1 tablet by mouth every six hours as needed prochlorperazine (Compazine) 10 MG tablet Take 10 mg by mouth every 6 (six) hours if needed 01/07/2024 Active sucralfate 100 mg/ml oral suspension (13 sources) Aluminum Complex Start: 03-01-2024 take 10 mL by mouth twice daily sucralfate (Carafate) 1 GM/10ML suspension TAKE 10ML BY MOUTH TWICE A DAY *SWISH, HOLD AND SPIT OR SWALLOW* 03/01/2024 Active Start: 03-01-2024 take 1 g by mouth twice daily Sucralfate Active 1 GM PO Twice daily 300 March 01, 2024 12:00am tadalafil 20 mg oral tablet (10 sources) Phosphodiesterase 5 Inhibitor Start: 08-18-2023 take 1 tablet by mouth every twenty-four hours as needed tadalafil (Cialis) 20 MG tablet Take 20 mg by mouth Daily as needed 08/18/2023 Active Start: 08-18-2023 take 1 tablet by artur th every hour as needed tadalafil 20 mg Tab 20 mg = 1 tab(s), Oral, As Directed, PRN for erectile dysfunction, Take one pill 1 hour prior to sexual activity., # 30 tab(s), Refills(s) 3, Pharmacy: [id number], 177, cm, 08/18/23 10:35:00 EST, Height/Length Dosing, 113.2, kg, 08/18/23 10:35:00 EST, Weight Dosing Start Date: 08/18/23 Status: Ordered traMADol hydrochloride 50 mg oral tablet (19 sources) Opioid Agonist Start: 02-16-2024 take 1 tablet by mouth every four hours as needed traMADol (Ultram) 50 MG tablet Take 50 mg by mouth every 4 (four) hours if needed 02/16/2024 Active Start: 02-16-2024 End: 06-10-2024 take 1 tablet by mouth every six hours as needed for pain Tramadol 50 mg tablet Discontinued 50 MG PO Every 6 hours as needed for pain 60 15 February 16, 2024 8:30am June 10, 2024 11:36am traZODone hydrochloride 50 mg oral tablet (20 sources) Serotonin Reuptake Inhibitor Start: 02-05-2024 take 1 tablet by mouth once daily at bedtime as needed for sleep Trazodone 50 mg tablet Active 0 .ROUTE .COMPLEX February 05, 2024 1:36pm TAKE 1 TABLET BY MOUTH ONCE DAILY AT BEDTIME NEEDED FOR SLEEP FOR 30 DAYS Start: 01-12-2024 End: 02-05-2024 traZODone (Desyrel) 50 MG ta blet Take 50 mg by mouth as needed at bedtime 01/12/2024 Active triamcinolone acetonide 0.001 mg/mg oral paste (5 sources) Corticosteroid Start: 05-10-2024 End: 06-09-2024 take 5 g by mouth three times daily triamcinolone (Kenalog) 0.1 % oral paste Indications: Malignant neoplasm of oropharynx (CMS/HCC) Use in the mouth or throat 3 (three) times a day Apply to right tongue 5 g 2 05/10/2024 06/09/2024 Active Completed/Discontinued Medications Medication Drug Class(es) Dates Sig (Normalized) Sig (Original) doxycycline hyclate 100 mg delayed release oral tablet (20 sources) Tetracycline-cla ss Drug Start: 11-13-2023 End: 12-23-2023 take 1 tablet by mouth twice daily Doxycycline Hyclate 100 mg tablet,delayed release (DR/EC) Discontinued 100 MG PO Twice daily 09 05November 12, 2023 11:00pm December 23, 2023 7:02am Magic Mouthwash W/Lidocaine 240 Ml Bottle (20 sources) Start: 02-18-2024 End: 02-18-2024 Magic Mouthwash W/Lidocaine 240 Ml Bottle Discontinued 5 - 10 ML PO Q6H 240 February 18, 2024 12:00am February 18, 2024 [...] Active 5 ML PO Four times daily 240 January 28, 2024 8:09am Take 5ml by [...] mucosal solution 60 mL; Per 240 mL Magic Mouthwash W/Lidocaine 240 Ml Bottle 240 mL bottle (3 sources) Start: 02-18-2024 End: 02-18-2024 take 1 tablet by mouth every six hours as needed Magic Mouthwash W/Lidocaine 240 Ml Bottle 240 mL bottle Discontinued 5 - 10 ML PO Q6H as needed for Mucositis 240 February 17, 2024 11:00pm February 18, 2024 12:48pm hydrocortisone 20 mg tablet 120 mg; diphenhydramine 12.5 mg/5 mL oral liquid 60 mL; Ora-Sweet oral syrup 60 mL; nystatin 100,000 unit/mL oral suspension 60 mL; Lidocaine Viscous 2 % mucosal solution 60 mL; Per 240 mL Instructions - Swish and Swallow dose Start: 01-28-2024 End: 06-10-2024 take 5 mL by mouth four times daily as needed Magic Mouthwash W/Lidocaine 240 Ml Bottle 240 mL bottle Discontinued 5 ML PO Four times daily as needed for mouth irritation 240 January 28, 2024 7:09am June 10, 2024 11:35am Take 5ml by mouth four times a day, as needed. SWISH AND SWALLOW. Start: 01-08-2024 End: 01-28-2024 Magic Mouthwash W/Lidocaine 240 Ml Bottle 240 mL bottle Discontinued 10 ML PO Three times daily as needed for mouth irritation 240 January 07, 2024 11:00pm January 28, 2024 7:11am hydrocortisone 20 mg tablet 120 mg; diphenhydramine 12.5 mg/5 mL oral liquid 60 mL; Ora-Sweet oral syrup 60 mL; nystatin 100,000 unit/mL oral suspension 60 mL; Lidocaine Viscous 2 % mucosal solution 60 mL; Per 240 mL morphine sulfate 2 mg/ml oral solution (20 sources) Opioid Agonist Start: 02-02-2024 End: 06-10-2024 take 5 mg by mouth every four to six hours as needed for pain Morphine 10 mg/5 mL solution Discontinued 5 MG PO EVERY 4-6 HOURS as needed for pain 100 February 02, 2024 June 10, 2024 11:35am Start: 02-02-2024 morphine 10 MG /5ML solution 10 mg every 4 (four) hours if needed 02/02/2024 Active Start: 02-02-2024 End: 02-02-2024 take 5 mg [...] 5 MG PO EVERY 4-6 HOURS 100 10 February 02, 2024 February 02, 2024 11:28am Nystatin 100,000 unit/mL suspension (1 source) Start: 04-09-2024 End: 06-10-2024 Nystatin 100,000 unit/mL suspension Discontinued 5 ML PO Three times daily 60 April 08, 2024 11:00pm June 10, 2024 11:35am swish and spit or swallow 5ml 2-3 times daily Sucralfate 100 mg/mL suspension (1 source) Start: 03-01-2024 End: 06-10-2024 take 1 g by mouth twice daily Sucralfate 100 mg/mL suspension Discontinued 1 GM PO Twice daily 300 February 29, 2024 11:00pm June 10, 2024 11:36am Problems Active Problems Problem Classification Problem Date Documented Date Episodic/Chronic Acute and chronic tonsillitis (10 sources) Mass of palatine tonsil; Translations: [Other chronic diseases of tonsils and adenoids] Onset: 12-17-2023 12-17-2023 Chronic Cancer of head and neck (20 sources) Malignant tumor of oropharynx; Translations: [Malignant neoplasm of oropharynx, unspecified] Onset: 12-24-2023 01-06-2024 Chronic Comment on above: Dx: hemothera py/Radiation therapy Cancer of prostate (11 sources) Malignant tumor of prostate; Translations: [Malignant neoplasm of prostate] Onset: 12-17-2023 01-10-2020 Chronic Cardiac dysrhythmias (20 sources) Paroxysmal atrial fibrillation; Translations: [Unspecified atrial fibrillation] Onset: 11-24-2017 Chronic Diseases of mouth; excluding dental (20 sources) Oral lesion; Translations: [Other lesions of oral mucosa] Onset: 02-14-2024 01-08-2024 Episodic Disorders of lipid metabolism (11 sources) Hypercholesterolemia; Translations: [Pure hypercholesterolemia, unspecified] Onset: 12-25-2022 04-28-2019 Chronic Esophageal disorders (11 sources) Gastroesophageal reflux disease; Translations: [Gastro-esophageal reflux disease without esophagitis] Onset: 12-25-2022 04-28-2019 Chronic Essential hypertension (14 sources) Essential (primary) hypertension; Translations: [Hypertensive disorder] Onset: 06-01-2021 04-28-2019 Chronic Glaucoma (11 sources) Glaucoma; Translations: [Unspecified glaucoma] Onset: 12-25-2022 04-28-2019 Chronic Joint disorders and dislocations; trauma-related (9 sources) Derangement of right knee; Translations: [Unspecified internal derangement of right knee] Onset: 12-25-2022 12-25-2022 Chronic Osteoarthritis (18 sources) Idiopathic osteoarthritis; Translations: [Primary osteoarthritis, unspecified site] Onset: 12-25-2022 12-25-2022 Chronic Other aftercare (20 sources) Patient encounter status; Translations: [Encounter for palliative care] Onset: 02-14-2024 01-27-2024 Episodic Other male genital disorders (3 sources) Male erectile dysfunction, unspecified; Translations: [Erectile dysfunction] Onset: 07-19-2022 Chronic Other male genital disorders (2 sources) Impotence 10-08-2019 Chronic Other male genital disorders (2 sources) 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 Other nervous system disorders (20 sources) Pain due to neoplastic disease; Translations: [Neoplasm related pain (acute) (chronic)] Onset: 02-14-2024 01-27-2024 Chronic Other nervous system disorders (20 sources) Neoplasm related pain (acute) (chronic); Translations: [Neoplasm related pain (acute) (chronic)] Onset: 02-23-2024 01-27-2024 Chronic Other nervous system disorders (9 sources) Carpal tunnel syndrome of left wrist; Translations: [Carpal tunnel syndrome, left upper limb] Onset: 12-25-2022 12-25-2022 Chronic Other screening for suspected conditions (not mental disorders or infectious disease) (20 sources) Ultrasound scan abnormal; Translations: [Abnormal findings on diagnostic imaging of other specified body structures] 11-18-2023 Chronic Other screening for suspected conditions (not mental disorders or infectious disease) (2 sources) Raised prostate specific antigen 01-10-2020 Episodic Other skin disorders (20 sources) Finding of head and neck region; Translations: [Localized swelling, mass and lump, head] 11-13-2023 Episodic Other skin disorders (13 sources) Localized swelling, mass and lump, head; Translations: [Swelling, mass, or lump in head and neck] 11-13-2023 Episodic Other upper respiratory infections (20 sources) Maxillary sinusitis; Translations: [Chronic maxillary sinusitis] Onset: 12-20-2023 Resolved: 12-20-2023 11-13-2023 Chronic Residual codes; unclassified (4 sources) Obstructive sleep apnea (adult) (pediatric); Translations: [OBSTRUCTIVE SLEEP APNEA] Onset: 08-14-2021 Chronic Residual codes; unclassified (9 sources) Obstructive sleep apnea syndrome; Translations: [Obstructive sleep apnea (adult) (pediatric)] Onset: 09-27-2022 12-25-2022 Chronic Residual codes; unclassified (1 source) Family history of malignant neoplasm of prostate; Translations: [FAMILY HX MALIG NEOPLASM PROSTATE] Onset: 07-19-2022 Episodic Residual codes; unclassified (1 source) Edema, unspecified; Translations: [EDEMA UNSPECIFIED] Onset: 05-12-2022 Episodic Residual codes; unclassified (2 sources) Family history of cancer; Translations: [Family history of malignant neoplasm of prostate] Onset: 08-09-2022 Episodic Residual codes; unclassified (20 sources) Acute insomnia; Translations: [Insomnia, unspecified] Onset: 02-14-2024 01-12-2024 Episodic Residual codes; unclassified (6 sources) H/O: radiation exposure; Translations: [Personal history of irradiation] 05-10-2024 Episodic Secondary malignancies (2 sources) Secondary malignant neoplasm of lymph nodes of neck; Translations: [Secondary and unspecified malignant neoplasm of lymph nodes of head, face and neck] 03-30-2024 Chronic Thyroid disorders (9 sources) Thyroid nodule; Translations: [Nontoxic single thyroid nodule] Onset: 12-17-2023 12-17-2023 Chronic Unclassified (1 source) CONTACT W/AND (SUSP) EXPOS COVID-19; Translations: [CONTACT W/AND (SUSP) EXPOS COVID-19] Onset: 2022 Unclassified (2 sources) Drug therapy finding 10-08-2019 Past or Other Problems Problem Classification Problem Date Documented Da te Episodic/Chronic Cancer of prostate (14 sources) Personal history of malignant neoplasm of prostate; Translations: [History of malignant neoplasm of prostate] Onset: 07-19-2022 Episodic Genitourinary symptoms and ill-defined conditions (20 sources) Nocturia; Translations: [Microscopic hematuria] Onset: 07-19-2022 08-04-2019 Episodic Hyperplasia of prostate (17 sources) Benign prostatic hyperplasia with lower urinary tract symptoms; Translations: [Benign prostatic hypertrophy with outflow obstruction] Onset: 07-16-2022 Resolved: 12-20-2023 Chronic Nausea and vomiting (20 sources) Nausea; Translations: [Nausea] Onset: 02-23-2024 02-23-2024 Episodic Other aftercare (14 sources) Encounter for palliative care; Translations: [Encounter for palliative care] Onset: 01-27-2024 01-27-2024 Episodic Other aftercare (9 sources) Drug therapy finding; Translations: [exterminator helper (current) use of anticoagulants] Onset: 12-25-2022 12-25-2022 Episodic Other diseases of veins and lymphatics (9 sources) Vascular insufficiency; Translations: [Venous insufficiency (chronic) (peripheral)] Onset: 01-14-2024 01-14-2024 Episodic Other gastrointestinal disorders (1 source) Dysphagia, oral phase; Translations: [Dysphagia, oral phase] Onset: 02-24-2024 Episodic Other nutritional; endocrine; and metabolic disorders (11 sources) Body mass index 30+ - obesity; Translations: [Body mass index (BMI) 35.0-35.9, adult] Onset: 05-07-2023 Resolved: 12-20-2023 07-19-2020 Chronic Other skin disorders (9 sources) Mass of neck; Translations: [Localized swelling, mass and lump, neck] Onset: 12-17-2023 12-17-2023 Episodic Residual codes; unclassified (11 sources) Family history of prostate cancer; Translations: [Family history of malignant neoplasm of prostate] Onset: 12-25-2022 10-08-2019 Episodic Residual codes; unclassified (20 sources) Insomnia, unspecified; Translations: [Insomnia, unspecified] Onset: 02-23-2024 01-12-2024 Episodic Screening and history of mental health and substance abuse codes (11 sources) Ex-smoker; Translations: [Personal history of nicotine dependence] Onset: 12-25-2022 10-08-2019 Episodic Results Test Name Value Interpretation Reference Range Facility Glucose Poct Glucometerson 1 08-31-2023 Glucose [Mass/Vol] 138 mg/dL Normal [facility] Comment on above: Result Comment: [facility] Glucose Reference Range is dependent on time and content of last meal. Glucose of more than 200 mg/dL in a nonstressed, ambulatory subject supports the diagnosis of Diabetes Mellitus. PERFORMED BY: [place] [id number] PATHOLOGIST TYPEWRITER OPERATOR AUTOMATIC JEREMY FOWLER M.D. Performed By: #### G LULS #### Point of Care testing , PET tumor subq tx strat sb-m ton 06-30-2024 PET tumor subq tx strat sb-mt [facility] Main [place] [address] [place], [place] [id number] Nuclear Medicine Report Signed with Addenda Patient: Alen Calderon MR#: [id number] : 1965 Acct:[id number] Age/Sex: 59 / M ADM Date: 06/30/24 Loc: Room: Type: [facility] Attending Dr: Marbella Muñoz MD Copies to: Bruce Serrano II, MD Norleena Poynter, MD Ordering Provider: Marbella Muñoz MD Date of Service: 06/30/24 PET/PET tumor subq tx strat sb-mt: post treatment PET ADDENDUM 1 Blood glucose: 113 mg/dL Impression dictated by: Bruce Serrano M.D.06/30/2024 12:33 PM Dictation Location: [facility] Addendum Dictated By: Bruce Serrano II, MD Addendum Signed By: 06/30/241232 Addendum Cosigned By: DD/ /13/1232 TD/TT: 06/30/2406/13/1233 PET tumor subq tx strat sb-mt 06/30/2024 8:34 AM SIGNS AND SYMPTOMS: History of tonsillar cancer, follow-up PROTOCOL: PET images were obtained of the head and neck and from skull base to mid thigh after intravenous radiotracer administration. Low-dose CT of the same anatomy was performed. After attenuation correction of PET images, fused PET CT images were generated and reconstructed in axial, sagittal, and coronal planes. COMPARISON: 12/02/2023 RADIOPHARMACEUTICAL: 12.1 mCi of intravenous fluorine 18 FDG FINDINGS: Head and neck: There has been significant interval improvement in the appearance of a prominent right level 2A lymph node without significant increase radiotracer accumulation to suggest residual malignancy. There is mild physiologic radiotracer accumulation in the salivary glands and oral mucosa without focal abnormal radiotracer accumulation. There has been interval improvement in soft tissue prominence along the right wrist lingual tonsil. Skull base to mid thigh: There is physiologic radiotracer accumulation within the brain, myocardium, liver and spleen. The gallbladder, and bowel. No focal abnormal radiotracer accumulation is noted to suggest distant metastatic disease. Mucosal is noted left maxillary sinus. Surgical clips are present in the right upper quadrant consistent with prior cholecystectomy. PET/PET tumor subq tx strat sb-mt IMPRESSION: Head and neck: There has been significant interval improvement in the appearance of a prominent right level 2A lymph node without significant increase radiotracer accumulation to suggest residual malignancy. Skull base and mid thigh: No focal abnormal radiotracer accumulation is noted to suggest distant metastatic disease. Impression dictated by: Bruce Serrano M.D.06/30/2024 12:09 PM Dictation Location: [place] [address] Transcribed By: [facility] 06/30/24 1209 Dictated By: Bruce Serrano II, MD 06/30/24 1148 Signed By: 06/30/24 1209 Normal [facility] Complete Blood Count Auto Di ffon 06-07-2024 Basophils (Bld) [#/Vol] 0.0 10*3/uL Normal 0.0-0.2 [facility] Comment on above: Result Comment: PERF ORMED BY: [place] [address] PATHOLOGIST TYPEWRITER OPERATOR AUTOMATIC JEREMY FOWLER M.D. Performed By: #### M G, CBC, CMP #### [facility] [address] [place] [address] [place] Basophils/100 WBC (Bld) 0.6 % Normal . [facility] Comment on above: Performed By: #### M G, CBC, CMP #### [facility] [address] [place] [address] [place] Eosinophils (Bld) [#/Vol] 0.2 10*3/uL Normal 0.0-0.45 [facility] Comment on above: Performed By: #### M G, CBC, CMP #### [address] Eosinophils/100 WBC (Bld) 3.7 % Normal . [facility] Comment on above: Performed By: #### M G, CBC, CMP #### [address] Erythrocyte distribution width (RBC) [Ratio] 11.8 % Low 12.0-14.8 [facility] Comment on above: Performed By: #### M G, CBC, CMP #### [address] Hematocrit (Bld) [Volume fraction] 40.6 % Normal 38.8-50.0 [facility] Comment on above: Performed By: #### M G, CBC, CMP #### [address] Hemoglobin (Bld) [Mass/Vol] 14.1 g/dL Normal 13.0-17.0 [facility] Comment on above: Performed By: #### M G, CBC, CMP #### [address] Lymphocytes (Bld) [#/Vol] 0.9 10*3/uL Low 1.00-4.8 [facility] Comment on above: Performed By: #### M G, CBC, CMP #### [address] Lymphocytes/100 WBC (Bld) 19.5 % Normal . [facility] Comment on above: Performed By: #### M G, CBC, CMP #### [address] MCH (RBC) [Entitic mass] 35.8 pg High 27.5-35.2 [facility] Comment on above: Performed By: #### M G, CBC, CMP #### [address] MCV (RBC) [Entitic vol] 103.3 fL High 83.5-101 [facility] Comment on above: Performed By: #### M G, CBC, CMP #### [address] Mean Corpuscular HGB Conc 34.6 g/dL Normal 32.5-35.6 [facility] Comment on above: Performed By: #### M G, CBC, CMP #### [address] Monocytes (Bld) [#/Vol] 0.6 10*3/uL Normal 0.0-0.8 [facility] Comment on above: Performed By: #### M G, CBC, CMP #### [address] Monocytes/100 WBC (Bld) 13.1 % Normal . [facility] Comment on above: Performed By: #### M G, CBC, CMP #### [address] Neutrophils (Bld) [#/Vol] 3.0 10*3/uL Normal 1.8-7.7 [facility] Comment on above: Performed By: #### M G, CBC, CMP #### [address] Neutrophils/100 WBC (Bld) 63.1 % Normal . [facility] Comment on above: Performed By: #### M G, CBC, CMP #### [address] NRBC% 0.1 /100{WBC} Normal 0-0.5 [facility] Comment on above: Performed By: #### M G, CBC, CMP #### [address] Platelet mean volume (Bld) [Entitic vol] 7.4 fL Normal 6.6-10.1 [facility] Comment on above: Performed By: #### M G, CBC, CMP #### [address] Platelets (Bld) [#/Vol] 187 10*3/uL Normal 150-450 [facility] Comment on above: Performed By: #### M G, CBC, CMP #### [address] RBC (Bld) [#/Vol] 3.93 10*6/uL Normal 3.90-5.60 [facility] Comment on above: Performed By: #### M G, CBC, CMP #### [address] WBC (Bld) [#/Vol] 4.8 10*3/uL Normal 4.1-10.5 [facility] Comment on above: Performed By: #### M G, CBC, CMP #### [address] Comprehensive Metabolic Pane darren 06-07-2024 Albumin [Mass/Vol] 4.3 g/dL Normal 3.5-5.7 [facility] Comment on above: Performed By: #### M G, CBC, CMP #### [address] Albumin/Globulin [Mass ratio] 1.5 {ratio} Normal [facility] Comment on above: Performed By: #### M G, CBC, CMP #### [address] ALP [Catalytic activity/Vol] 47 U/L Normal 34-104 [facility] Comment on above: Performed By: #### M G, CBC, CMP #### [address] ALT [Catalytic activity/Vol] 16 U/L Normal 7-52 [facility] Comment on above: Performed By: #### M G, CBC, CMP #### [address] Anion gap [Moles/Vol] 10.1 mmol/L Normal 6.0-15.0 [facility] Comment on above: Performed By: #### M G, CBC, CMP #### [address] AST [Catalytic activity/Vol] 20 U/L Normal 13-39 [facility] Comment on above: Performed By: #### M G, CBC, CMP #### [address] Bilirubin [Mass/Vol] 0.4 mg/dL Normal 0.3-1.0 [facility] Comment on above: Performed By: #### M G, CBC, CMP #### [address] Calcium [Mass/Vol] 10.0 mg/dL Normal 8.6-10.3 [facility] Comment on above: Performed By: #### M G, CBC, CMP #### [place] [address] [place] Chloride [Moles/Vol] 103 mmol/L Normal 98-107 [facility] Comment on above: Performed By: #### M G, CBC, CMP #### [place] [address] [place] CO2 [Moles/Vol] 27.6 mmol/L Normal 21.0-31.0 [facility] Comment on above: Performed By: #### M G, CBC, CMP #### [address] Creatinine [Mass/Vol] 0.99 mg/dL Normal 0.70-1.30 [facility] Comment on above: Performed By: #### M G, CBC, CMP #### [place] [address] [place] Creatinine Clr Calc Pharmacy 94.64 Normal [facility] Comment on above: Result Comment: PERF ORMED BY: [place] [address] PATHOLOGIST TYPEWRITER OPERATOR AUTOMATIC JEREMY FOWLER M.D. Performed By: #### M G, CBC, CMP #### [place] [address] [place] GFR/1.73 sq M.predicted MDRD (S/P/Bld) [Vol rate/Area] mL/min/{1.73_m2} Normal [facility] Comment on above: Performed By: #### M Charlie CBC, CMP #### [address] Globulin (S) [Mass/Vol] 2.8 g/dL Normal [facility] Comment on above: Performed By: #### M Charlie, CBC, CMP #### [address] Glucose [Mass/Vol] 108 mg/dL High 70-100 [facility] Comment on above: Result Comment: [facility] Glucose Reference Range is dependent on time and content of last meal. Glucose of more than 200 mg/dL in a nonstressed, ambulatory subject supports the diagnosis of Diabetes Mellitus. ADA recommended reference range Performed By: #### M Charlie, CBC, CMP #### [address] Potassium [Moles/Vol] 4.7 mmol/L Normal 3.5-5.1 [facility] Comment on above: Performed By: #### Yolanda Guerra CBC, CMP #### [address] Protein [Mass/Vol] 7.1 g/dL Normal 6.4-8.9 [facility] Comment on above: Performed By: #### Yolanda Guerra CBC, CMP #### [address] Sodium [Moles/Vol] 136 mmol/L Normal 136-145 [facility] Comment on above: Performed By: #### M Charlie CBC, CMP #### [address] Urea nitrogen [Mass/Vol] 20 mg/dL Normal 7-25 [facility] Comment on above: Performed By: #### M Charlie, CBC, CMP #### [address] Magnesiumon 06-07-2024 Magnesium [Mass/Vol] 2.0 mg/dL Normal 1.9-2.7 [facility] Comment on above: Result Comment: PERF ORMED BY: [place] [address] PATHOLOGIST TYPEWRITER OPERATOR AUTOMATIC JEREMY FOWLER M.D. Performed By: #### C BC, CMP, MG #### [address] Complete Blood Count Auto Di ffon 05-05-2024 Basophils (Bld) [#/Vol] 0.0 10*3/uL Normal 0.0-0.2 [facility] Comment on above: Result Comment: PERF ORMED BY: [place] [address] PATHOLOGIST TYPEWRITER OPERATOR AUTOMATIC CHANDAN WINSTON M.D. Performed By: #### M G, CMP #### [address] Basophils/100 WBC (Bld) 0.8 % Normal . [facility] Comment on above: Performed By: #### M G, CMP #### [place] [address] [place] Eosinophils (Bld) [#/Vol] 0.2 10*3/uL Normal 0.0-0.45 [facility] Comment on above: Performed By: #### M G, CMP #### [place] [address] [place] Eosinophils/100 WBC (Bld) 4.9 % Normal . [facility] Comment on above: Performed By: #### M G, CMP #### [address] Erythrocyte distribution width (RBC) [Ratio] 14.3 % Normal 12.0-14.8 [facility] Comment on above: Performed By: #### M G, CMP #### [address] Hematocrit (Bld) [Volume fraction] 36.7 % Low 38.8-50.0 [facility] Comment on above: Performed By: #### M G, CMP #### [facility] [address] Hemoglobin (Bld) [Mass/Vol] 12.9 g/dL Low 13.0-17.0 [facility] Comment on above: Performed By: #### M G, CMP #### [facility] [address] Lymphocytes (Bld) [#/Vol] 0.7 10*3/uL Low 1.00-4.8 [facility] Comment on above: Performed By: #### M G, CMP #### [facility] [address] Lymphocytes/100 WBC (Bld) 15.3 % Normal . [facility] Comment on above: Performed By: #### M G, CMP #### [address] MCH (RBC) [Entitic mass] 37.9 pg High 27.5-35.2 [facility] Comment on above: Performed By: #### M G, CMP #### [address] MCV (RBC) [Entitic vol] 107.5 fL High 83.5-101 [facility] Comment on above: Performed By: #### M G, CMP #### [address] Mean Corpuscular HGB Conc 35.2 g/dL Normal 32.5-35.6 [facility] Comment on above: Performed By: #### M G, CMP #### [facility] [address] [place] [address] [place] Monocytes (Bld) [#/Vol] 0.6 10*3/uL Normal 0.0-0.8 [facility] Comment on above: Performed By: #### M G, CMP #### [place] [address] [place] Monocytes/100 WBC (Bld) 12.8 % Normal . [facility] Comment on above: Performed By: #### M G, CMP #### [facility] [address] [place] [address] [place] Neutrophils (Bld) [#/Vol] 3.2 10*3/uL Normal 1.8-7.7 [facility] Comment on above: Performed By: #### M G, CMP #### [facility] [address] [place] [address] [place] Neutrophils/100 WBC (Bld) 66.2 % Normal . [facility] Comment on above: Performed By: #### M G, CMP #### [facility] [address] [place] [address] [place] NRBC% 0.1 /100{WBC} Normal 0-0.5 [facility] Comment on above: Performed By: #### M G, CMP #### [facility] [address] [place] [id number] [place] Platelet mean volume (Bld) [Entitic vol] 7.1 fL Normal 6.6-10.1 [facility] Comment on above: Performed By: #### M G, CMP #### [facility] [address] [place] [address] [place] Platelets (Bld) [#/Vol] 207 10*3/uL Normal 150-450 [facility] Comment on above: Performed By: #### M G, CMP #### [facility] [address] [place] [address] [place] RBC (Bld) [#/Vol] 3.42 10*6/uL Low 3.90-5.60 [facility] Comment on above: Performed By: #### M G, CMP #### [facility] [address] [place] [address] [place] WBC (Bld) [#/Vol] 4.9 10*3/uL Normal 4.1-10.5 [facility] Comment on above: Performed By: #### M G, CMP #### [facility] [address] [place] [address] [facility] Comprehensive Metabolic Pane darren 05-05-2024 Albumin [Mass/Vol] 4.0 g/dL Normal 3.5-5.7 [facility] Comment on above: Performed By: #### Yolanda G, CMP #### [address] Albumin/Globulin [Mass ratio] 1.4 {ratio} Normal [facility] Comment on above: Performed By: #### Yolanda G, CMP #### [address] ALP [Catalytic activity/Vol] 52 U/L Normal 34-104 [facility] Comment on above: Performed By: #### Yolanda G, CMP #### [address] ALT [Catalytic activity/Vol] 15 U/L Normal 7-52 [facility] Comment on above: Performed By: #### Yolanda Guerra, CMP #### [address] Anion gap [Moles/Vol] 9.1 mmol/L Normal 6.0-15.0 [facility] Comment on above: Performed By: #### Yolanda Guerra, CMP #### [address] AST [Catalytic activity/Vol] 24 U/L Normal 13-39 [facility] Comment on above: Performed By: #### Yolanda Guerra, CMP #### [address] Bilirubin [Mass/Vol] 0.6 mg/dL Normal 0.3-1.0 [facility] Comment on above: Performed By: #### Yolanda G, CMP #### [place] [address] [place] Calcium [Mass/Vol] 9.7 mg/dL Normal 8.6-10.3 [facility] Comment on above: Performed By: #### Yolanda G, CMP #### [address] Chloride [Moles/Vol] 105 mmol/L Normal 98-107 [facility] Comment on above: Performed By: #### Yolanda Guerra, CMP #### [facility] [address] CO2 [Moles/Vol] 29.3 mmol/L Normal 21.0-31.0 [facility] Comment on above: Performed By: #### M G, CMP #### [address] Creatinine [Mass/Vol] 0.94 mg/dL Normal 0.70-1.30 [facility] Comment on above: Performed By: #### Yolanda G, CMP #### [place] [address] [place] Creatinine Clr Calc Pharmacy 99.67 Normal [facility] Comment on above: Performed By: #### Yolanda Guerra, CMP #### [place] [address] [place] GFR/1.73 sq M.predicted MDRD (S/P/Bld) [Vol rate/Area] mL/min/{1.73_m2} Normal [facility] Comment on above: Performed By: #### Yolanda Guerra, CMP #### [place] [address] [place] Globulin (S) [Mass/Vol] 2.8 g/dL Normal T [facility] Comment on above: Performed By: #### Yolanda G, CMP #### [place] [address] [place] Glucose [Mass/Vol] 103 mg/dL High 70-100 [facility] Comment on above: Result Comment: [facility] Glucose Reference Range is dependent on time and content of last meal. Glucose of more than 200 mg/dL in a nonstressed, ambulatory subject supports the diagnosis of Diabetes Mellitus. ADA recommended reference range Performed By: #### M G, CMP #### [place] [address] [place] Potassium [Moles/Vol] 4.4 mmol/L Normal 3.5-5.1 [facility] Comment on above: Performed By: #### Yolanda G, CMP #### [place] [address] [place] Protein [Mass/Vol] 6.8 g/dL Normal 6.4-8.9 [facility] Comment on above: Performed By: #### M G, CMP #### [address] Sodium [Moles/Vol] 139 mmol/L Normal 136-145 [facility] Comment on above: Performed By: #### M G, CMP #### [address] Urea nitrogen [Mass/Vol] 13 mg/dL Normal 7-25 [facility] Comment on above: Performed By: #### M G, CMP #### [address] Magnesiumon 05-05-2024 Magnesium [Mass/Vol] 1.9 mg/dL Normal 1.9-2.7 [facility] Comment on above: Result Comment: PERF ORMED BY: [place] [address] PATHOLOGIST TYPEWRITER OPERATOR AUTOMATIC CHANDAN WINSTON M.D. Performed By: #### M G, CMP #### [address] Complete Blood Count Auto Di ffon 04-16-2024 Basophils (Bld) [#/Vol] 0.0 10*3/uL Normal 0.0-0.2 [facility] Comment on above: Result Comment: PERF ORMED BY: [place] [address] PATHOLOGIST TYPEWRITER OPERATOR AUTOMATIC CHANDAN WINSTON M.D. Performed By: #### C BC, CMP, MG #### [place] [address] [place] Basophils/100 WBC (Bld) 1.0 % Normal . [facility] Comment on above: Performed By: #### C BC, CMP, MG #### [address] Eosinophils (Bld) [#/Vol] 0.2 10*3/uL Normal 0.0-0.45 [facility] Comment on above: Performed By: #### C BC, CMP, MG #### [place] [address] [place] Eosinophils/100 WBC (Bld) 6.5 % Normal . [facility] Comment on above: Performed By: #### C BC, CMP, MG #### [address] Erythrocyte distribution width (RBC) [Ratio] 20.1 % High 12.0-14.8 [facility] Comment on above: Performed By: #### C BC, CMP, MG #### [address] Hematocrit (Bld) [Volume fraction] 30.2 % Low 38.8-50.0 [facility] Comment on above: Performed By: #### C BC, CMP, MG #### [address] Hemoglobin (Bld) [Mass/Vol] 10.6 g/dL Low 13.0-17.0 [facility] Comment on above: Performed By: #### C BC, CMP, MG #### [address] Lymphocytes (Bld) [#/Vol] 0.6 10*3/uL Low 1.00-4.8 [facility] Comment on above: Performed By: #### C BC, CMP, MG #### [place] [address] [place] Lymphocytes/100 WBC (Bld) 14.4 % Normal . [facility] Comment on above: Performed By: #### C BC, CMP, MG #### [address] MCH (RBC) [Entitic mass] 36.2 pg High 27.5-35.2 [facility] Comment on above: Performed By: #### C BC, CMP, MG #### [address] MCV (RBC) [Entitic vol] 103.4 fL High 83.5-101 T [facility] Comment on above: Performed By: #### C BC, CMP, MG #### [facility] [address] Mean Corpuscular HGB Conc 35.0 g/dL Normal 32.5-35.6 [facility] Comment on above: Performed By: #### C BC, CMP, MG #### [facility] [address] Monocytes (Bld) [#/Vol] 0.6 10*3/uL Normal 0.0-0.8 [facility] Comment on above: Performed By: #### C BC, CMP, MG #### [facility] [address] Monocytes/100 WBC (Bld) 16.0 % Normal . [facility] Comment on above: Performed By: #### C BC, CMP, MG #### [facility] [address] Neutrophils (Bld) [#/Vol] 2.4 10*3/uL Normal 1.8-7.7 [facility] Comment on above: Performed By: #### C BC, CMP, MG #### [address] Neutrophils/100 WBC (Bld) 62.1 % Normal . [facility] Comment on above: Performed By: #### C BC, CMP, MG #### [address] NRBC% 0.2 /100{WBC} Normal 0-0.5 [facility] Comment on above: Performed By: #### C BC, CMP, MG #### [facility] [address] Platelet mean volume (Bld) [Entitic vol] 7.2 fL Normal 6.6-10.1 [facility] Comment on above: Performed By: #### C BC, CMP, MG #### [facility] [address] [place] [address] [place] Platelets (Bld) [#/Vol] 193 10*3/uL Normal 150-450 [facility] Comment on above: Performed By: #### C BC, CMP, MG #### [address] RBC (Bld) [#/Vol] 2.93 10*6/uL Low 3.90-5.60 [facility] Comment on above: Performed By: #### C BC, CMP, MG #### [address] WBC (Bld) [#/Vol] 3.8 10*3/uL Low 4.1-10.5 [facility] Comment on above: Performed By: #### C BC, CMP, MG #### [address] Comprehensive Metabolic Pane darren 04-16-2024 Albumin [Mass/Vol] 3.7 g/dL Normal 3.5-5.7 [facility] Comment on above: Performed By: #### C BC, CMP, MG #### [address] Albumin/Globulin [Mass ratio] 1.4 {ratio} Normal [facility] Comment on above: Performed By: #### C BC, CMP, MG #### [address] ALP [Catalytic activity/Vol] 46 U/L Normal 34-104 [facility] Comment on above: Performed By: #### C BC, CMP, MG #### [address] ALT [Catalytic activity/Vol] 18 U/L Normal 7-52 [facility] Comment on above: Performed By: #### C BC, CMP, MG #### [address] Anion gap [Moles/Vol] 10.4 mmol/L Normal 6.0-15.0 [facility] e [facility] Comment on above: Performed By: #### C BC, CMP, MG #### [place] [id number] [place] AST [Catalytic activity/Vol] 24 U/L Normal 13-39 [facility] Comment on above: Performed By: #### C BC, CMP, MG #### [address] Bilirubin [Mass/Vol] 0.8 mg/dL Normal 0.3-1.0 [facility] Comment on above: Performed By: #### C BC, CMP, MG #### [address] Calcium [Mass/Vol] 9.3 mg/dL Normal 8.6-10.3 [facility] Comment on above: Performed By: #### C BC, CMP, MG #### [address] Chloride [Moles/Vol] 102 mmol/L Normal 98-107 [facility] Comment on above: Performed By: #### C BC, CMP, MG #### [address] CO2 [Moles/Vol] 30.3 mmol/L Normal 21.0-31.0 [facility] Comment on above: Performed By: #### C BC, CMP, MG #### [address] Creatinine [Mass/Vol] 0.91 mg/dL Normal 0.70-1.30 [facility] Comment on above: Performed By: #### C BC, CMP, MG #### [place] [address] [place] Creatinine Clr Calc Pharmacy 102.96 Normal [facility] Comment on above: Performed By: #### C BC, CMP, MG #### [place] [address] [place] GFR/1.73 sq M.predicted MDRD (S/P/Bld) [Vol rate/Area] mL/min/{1.73_m2} Normal [facility] Comment on above: Performed By: #### C BC, CMP, MG #### [address] [place] [address] [place] Globulin (S) [Mass/Vol] 2.7 g/dL Normal T he [facility] Comment on above: Performed By: #### C BC, CMP, MG #### [address] Glucose [Mass/Vol] 120 mg/dL High 70-100 [facility] Comment on above: Result Comment: [facility] Glucose Reference Range is dependent on time and content of last meal. Glucose of more than 200 mg/dL in a nonstressed, ambulatory subject supports the diagnosis of Diabetes Mellitus. ADA recommended reference range Performed By: #### C BC, CMP, MG #### [address] Potassium [Moles/Vol] 3.7 mmol/L Normal 3.5-5.1 [facility] Comment on above: Performed By: #### C BC, CMP, MG #### [address] Protein [Mass/Vol] 6.4 g/dL Normal 6.4-8.9 [facility] Comment on above: Performed By: #### C BC, CMP, MG #### [address] Sodium [Moles/Vol] 139 mmol/L Normal 136-145 [facility] Comment on above: Performed By: #### C BC, CMP, MG #### [address] Urea nitrogen [Mass/Vol] 13 mg/dL Normal 7-25 [facility] Comment on above: Performed By: #### C BC, CMP, MG #### [address] Magnesiumon 04-16-2024 Magnesium [Mass/Vol] 1.7 mg/dL Low 1.9-2.7 [facility] Comment on above: Result Comment: PERF ORMED BY: [place] [address] PATHOLOGIST TYPEWRITER OPERATOR [employer]OM[employer] CHANDAN WINSTON M.D. Performed By: #### C BC, CMP, MG #### [address] Alanine aminotransferase [En zymatic activity/volume] in Serum or PlasmaOrdered By: Karly Nielsen on 04-06-2024 ALT [Catalytic activity/Vol] 29 U/L Normal 7-52 [facility] Comment on above: Performed By: #### C BC, CMP, MG #### [place] [address] [place] Albumin [Mass/volume] in Ser um or Plasma by Bromocresol green (BCG) dye binding methoOrdered By: Karly Nielsen on 04-06-2024 Albumin BCG dye [Mass/Vol] 3.7 g/dL 3.5-5.7 [facility] Alkaline phosphatase [Enzyma tic activity/volume] in Serum or PlasmaOrdered By: acosta Nielsen on 04-06-2024 ALP [Catalytic activity/Vol] 45 U/L Normal 34-104 [facility] Comment on above: Performed By: #### C BC, CMP, MG #### [address] Aspartate aminotransferase [ Enzymatic activity/volume] in Serum or PlasmaOrdered By: Karly Nielsen on 04-06-2024 AST [Catalytic activity/Vol] 35 U/L Normal 13-39 [facility] Comment on above: Performed By: #### C BC, CMP, MG #### [address] Automated basophil %Ordered By: Karly Nielsen on 04-06-2024 Basophils/100 WBC (Bld) 1.0 % Normal . [facility] Comment on above: Performed By: #### C BC, CMP, MG #### [address] Automated basophil countOrde red By: Karly Nielsen on 04-06-2024 Basophils (Bld) [#/Vol] 0.0 10*3/uL Normal 0.0-0.2 [facility] Comment on above: Result Comment: PERF ORMED BY: [place] [address] PATHOLOGIST TYPEWRITER OPERATOR [employer]OM[employer] CHANDAN WINSTON M.D. Performed By: #### C BC, CMP, MG #### [address] Automated blood monocyte cou ntOrdered By: acosta Heck-Radha on 04-06-2024 Monocytes (Bld) [#/Vol] 0.7 10*3/uL Normal 0.0-0.8 [facility] Comment on above: Performed By: #### C BC, CMP, MG #### [address] Automated eosinophil %Ordere d By: d Micah-Tamannaraandria on 04-06-2024 Eosinophils/100 WBC (Bld) 3.3 % Normal . [facility] Comment on above: Performed By: #### C BC, CMP, MG #### [address] Automated eosinophil countOr dered By: acosta Heck-Tamannamicheal on 04-06-2024 Eosinophils (Bld) [#/Vol] 0.1 10*3/uL Normal 0.0-0.45 [facility] Comment on above: Performed By: #### C BC, CMP, MG #### [address] Automated monocyte %Ordered By: acosta Heck-Radha on 04-06-2024 Monocytes/100 WBC (Bld) 19.4 % Normal . [facility] Comment on above: Performed By: #### C BC, CMP, MG #### [address] Automated neutrophil %Ordere d By: d Al-Marraandria on 04-06-2024 Neutrophils/100 WBC (Bld) 65.5 % Normal . [facility] Comment on above: Performed By: #### C BC, CMP, MG #### [address] Bilirubin.total [Mass/volume ] in Serum or PlasmaOrdered By: Karly Nielsen on 04-06-2024 Bilirubin [Mass/Vol] 0.6 mg/dL Normal 0.3-1.0 [facility] Comment on above: Performed By: #### C BC, CMP, MG #### [facility] [address] Calcium [Mass/volume] in Ser um or PlasmaOrdered By: acosta Nielsen on 04-06-2024 Calcium [Mass/Vol] 9.3 mg/dL Normal 8.6-10.3 [facility] Comment on above: Performed By: #### C BC, CMP, MG #### [address] Carbon dioxide, total [Moles /volume] in Serum or PlasmaOrdered By: acosta Garcia on 04-06-2024 CO2 [Moles/Vol] 30.7 mmol/L Normal 21.0-31.0 [facility] Comment on above: Performed By: #### C BC, CMP, MG #### [address] Chloride [Moles/volume] in S ray or PlasmaOrdered By: acosta Nielsen on 04-06-2024 Chloride [Moles/Vol] 99 mmol/L Normal 98-107 [facility] Comment on above: Performed By: #### C BC, CMP, MG #### [address] Complete Blood Count Auto Di ffon 04-06-2024 Mean Corpuscular HGB Conc 35.8 g/dL High 32.5-35.6 [facility] Comment on above: Performed By: #### C BC, CMP, MG #### [address] NRBC% 0.1 /100{WBC} Normal 0-0.5 [facility] Comment on above: Performed By: #### C BC, CMP, MG #### [facility] [address] [place] [address] Comprehensive Metabolic Pane darren 04-06-2024 Albumin [Mass/Vol] 3.7 g/dL Normal 3.5-5.7 [facility] Comment on above: Performed By: #### C BC, CMP, MG #### [address] Creatinine Clr Calc Pharmacy 103.41 Normal [facility] Comment on above: Performed By: #### C BC, CMP, MG #### [address] GFR/1.73 sq M.predicted MDRD (S/P/Bld) [Vol rate/Area] mL/min/{1.73_m2} Normal [facility] Comment on above: Performed By: #### C BC, CMP, MG #### [address] Creatinine [Mass/volume] in Serum or PlasmaOrdered By: Karly Nielsen on 04-06-2024 Creatinine [Mass/Vol] 0.91 mg/dL Normal 0.70-1.30 [facility] Comment on above: Performed By: #### C BC, CMP, MG #### [address] Erythrocyte distribution wid th [Ratio] by Automated countOrdered By: Karly Garcia on 04-06-2024 Erythrocyte distribution width (RBC) [Ratio] 18.7 % High 12.0-14.8 [facility] Comment on above: Performed By: #### C BC, CMP, MG #### [address] Erythrocytes [#/volume] in B lood by Automated countOrdered By: Karly Nielsen on 04-06-2024 RBC (Bld) [#/Vol] 2.80 10*6/uL Low 3.90-5.60 [facility] Comment on above: Performed By: #### C BC, CMP, MG #### [address] [place] [address] [place] Glucose [Mass/volume] in Ser um or PlasmaOrdered By: Karly Nielsen on 04-06-2024 Glucose [Mass/Vol] 109 mg/dL High 70-100 [facility] Comment on above: ADA recommended refe rence rangeRandom Glucose Reference Range is dependent on time and content of last meal. Glucose of more than 200 mg/dL in a nonstressed, ambulatory subject supports the diagnosis of Diabetes Mellitus. Result Comment: [place] Glucose Reference Range is dependent on time and content of last meal. Glucose of more than 200 mg/dL in a nonstressed, ambulatory subject supports the diagnosis of Diabetes Mellitus. ADA recommended reference range Performed By: #### C BC, CMP, MG #### [facility] [address] [place] [address] Hematocrit [Volume Fraction] of Blood by Automated countOrdered By: Karly Garcia on 04-06-2024 Hematocrit (Bld) [Volume fraction] 27.6 % Low 38.8-50.0 [facility] Comment on above: Performed By: #### C BC, CMP, MG #### [facility] [address] [place] [address] Hemoglobin [Mass/volume] in BloodOrdered By: Karly Nielsen on 04-06-2024 Hemoglobin (Bld) [Mass/Vol] 9.9 g/dL Low 13.0-17.0 [facility] Comment on above: Performed By: #### C BC, CMP, MG #### [facility] [address] [place] [address] Leukocytes [#/volume] correc evelyn for nucleated erythrocytes in Blood by Automated counOrdered By: Karly Nielsen on 04-06-2024 WBC corrected for nucl RBC Auto (Bld) [#/Vol] 3.6 10*3/uL Low 4.1-10.5 [facility] Leukocytes [#/volume] in Blo od by Automated countOrdered By: Karly Nielsen on 04-06-2024 WBC (Bld) [#/Vol] 3.6 10*3/uL Low 4.1-10.5 [facility] Comment on above: Performed By: #### C BC, CMP, MG #### [facility] [address] [place] [address] Lymphocytes [#/volume] in Bl ood by Automated countOrdered By: Karly Nielsen on 04-06-2024 Lymphocytes (Bld) [#/Vol] 0.4 10*3/uL Low 1.00-4.8 [facility] Comment on above: Performed By: #### C BC, CMP, MG #### [address] Lymphocytes/100 leukocytes i n Blood by Automated countOrdered By: Karly Nielsen on 04-06-2024 Lymphocytes/100 WBC (Bld) 10.8 % Normal . [facility] Comment on above: Performed By: #### C BC, CMP, MG #### [facility] [address] [place] [address] MCH [Entitic mass] by Automa evelyn countOrdered By: Karly Nielsen on 04-06-2024 MCH (RBC) [Entitic mass] 35.3 pg High 27.5-35.2 [facility] Comment on above: Performed By: #### C BC, CMP, MG #### [address] MCHC Auto (RBC) [Mass/Vol]Or dered By: Karly Nielsen on 04-06-2024 MCHC (RBC) [Mass/Vol] 35.8 g/dL High 32.5-35.6 [facility] MCV [Entitic volume] by Auto mated countOrdered By: Karly Nielsen on 04-06-2024 MCV (RBC) [Entitic vol] 98.8 fL Normal 83.5-101 F [facility] Comment on above: Performed By: #### C BC, CMP, MG #### [address] Magnesium [Mass/volume] in S ray or PlasmaOrdered By: Karly Nielsen on 04-06-2024 Magnesium [Mass/Vol] 1.5 mg/dL Low 1.9-2.7 [facility] Comment on above: Result Comment: PERF ORMED BY: [place] [address] PATHOLOGIST TYPEWRITER OPERATOR AUTOMATIC CHANDAN WINSTON M.D. Performed By: #### C BC, CMP, MG #### [facility] [address] [place] [address] Neutrophils [#/volume] in Bl ood by Automated countOrdered By: acosta Nielsen on 04-06-2024 Neutrophils (Bld) [#/Vol] 2.4 10*3/uL Normal 1.8-7.7 [facility] Comment on above: Performed By: #### C BC, CMP, MG #### [address] No Panel InformationOrdered By: Karly Nielsen on 04-06-2024 Estimated GFR (CKD-EPI) > 60.0 mL/Min [facility] Creatinine Clearance (Chem 103.41 [facility] Nucleated erythrocytes [Pres ence] in Blood by Automated countOrdered By: Karly Nielsen on 04-06-2024 Nucleated RBC Auto Ql (Bld) 0.1 /100{WBC} 0-0.5 [facility] Platelet mean volume [Entiti c volume] in Blood by Automated countOrdered By: Karly Nielsen on 04-06-2024 Platelet mean volume (Bld) [Entitic vol] 7.6 fL Normal 6.6-10.1 [facility] Comment on above: Performed By: #### C BC, CMP, MG #### [facility] [address] [place] [address] Platelets [#/volume] in Bloo d by Automated countOrdered By: Karly Nielsen on 04-06-2024 Platelets (Bld) [#/Vol] 211 10*3/uL Normal 150-450 [facility] Comment on above: Performed By: #### C BC, CMP, MG #### [address] [place] [address] [place] Potassium [Moles/volume] in Serum or PlasmaOrdered By: Karly Heck-Radha on 04-06-2024 Potassium [Moles/Vol] 3.7 mmol/L Normal 3.5-5.1 [facility] Comment on above: Performed By: #### C BC, CMP, MG #### [facility] [address] Protein [Mass/volume] in Ser um or PlasmaOrdered By: d Micah-Radha on 04-06-2024 Protein [Mass/Vol] 6.3 g/dL Low 6.4-8.9 [facility] Comment on above: Performed By: #### C BC, CMP, MG #### [address] Serum globulin measurement b y calculation (mass/volume)Ordered By: Karly Heck- Radha on 04-06-2024 Globulin (S) [Mass/Vol] 2.6 g/dL Normal [facility] Comment on above: Performed By: #### C BC, CMP, MG #### [facility] [address] [place] [address] Serum or plasma albumin/glob ulin mass ratioOrdered By: acosta Heck-Radha on 04-06-2024 Albumin/Globulin [Mass ratio] 1.4 {ratio} [facility] Comment on above: Performed By: #### C BC, CMP, MG #### [facility] [address] [place] [address] Serum or plasma anion gap de terminationOrdered By: d Micah-Radha on 04-06-2024 Anion gap [Moles/Vol] 10.0 mmol/L Normal 6.0-15.0 [facility] Comment on above: Performed By: #### C BC, CMP, MG #### [facility] [address] [place] [address] [place] Sodium [Moles/volume] in Ser um or PlasmaOrdered By: Supad Micah-Radha on 04-06-2024 Sodium [Moles/Vol] 136 mmol/L Normal 136-145 [facility] Comment on above: Performed By: #### C BC, CMP, MG #### [address] Urea nitrogen [Mass/volume] in Serum or PlasmaOrdered By: Karly Nielsen on 04-06-2024 Urea nitrogen [Mass/Vol] 7 mg/dL Normal 7-25 [facility] Comment on above: Performed By: #### C BC, CMP, MG #### [address] Complete Blood Count Auto Di ffon 03-30-2024 Basophils (Bld) [#/Vol] 0.0 10*3/uL Normal 0.0-0.2 [facility] Comment on above: Result Comment: PERF ORMED BY: [place] [address] PATHOLOGIST TYPEWRITER OPERATOR [employer]OMAT[employer] CHANDAN WINSTON M.D. Performed By: #### C BC, CMP, MG #### [address] Basophils/100 WBC (Bld) 0.7 % Normal . T juan [facility] Comment on above: Performed By: #### C BC, CMP, MG #### [address] Eosinophils (Bld) [#/Vol] 0.0 10*3/uL Normal 0.0-0.45 [facility] Comment on above: Performed By: #### C BC, CMP, MG #### [address] Eosinophils/100 WBC (Bld) 0.9 % Normal . [facility] Comment on above: Performed By: #### C BC, CMP, MG #### [address] Erythrocyte distribution width (RBC) [Ratio] 17.7 % High 12.0-14.8 [facility] Comment on above: Performed By: #### C BC, CMP, MG #### [address] Hematocrit (Bld) [Volume fraction] 26.3 % Low 38.8-50.0 [facility] Comment on above: Performed By: #### C BC, CMP, MG #### [address] Hemoglobin (Bld) [Mass/Vol] 9.5 g/dL Low 13.0-17.0 [facility] Comment on above: Performed By: #### C BC, CMP, MG #### [address] Lymphocytes (Bld) [#/Vol] 0.5 10*3/uL Low 1.00-4.8 [facility] Comment on above: Performed By: #### C BC, CMP, MG #### [address] Lymphocytes/100 WBC (Bld) 12.0 % Normal . [facility] Comment on above: Performed By: #### C BC, CMP, MG #### [address] MCH (RBC) [Entitic mass] 34.9 pg Normal 27.5-35.2 [facility] Comment on above: Performed By: #### C BC, CMP, MG #### [address] MCV (RBC) [Entitic vol] 96.9 fL Normal 83.5-101 T [facility] Comment on above: Performed By: #### C BC, CMP, MG #### [address] Mean Corpuscular HGB Conc 36.1 g/dL High 32.5-35.6 [facility] Comment on above: Performed By: #### C BC, CMP, MG #### [address] Monocytes (Bld) [#/Vol] 0.6 10*3/uL Normal 0.0-0.8 [facility] Comment on above: Performed By: #### C BC, CMP, MG #### [facility] [address] [place] [address] [place] Monocytes/100 WBC (Bld) 15.5 % Normal . T juan [facility] Comment on above: Performed By: #### C BC, CMP, MG #### [facility] [address] [place] [id number] [place] Neutrophils (Bld) [#/Vol] 2.9 10*3/uL Normal 1.8-7.7 [facility] Comment on above: Performed By: #### C BC, CMP, MG #### [facility] [address] [place] [phone] [place] Neutrophils/100 WBC (Bld) 70.9 % Normal . [facility] Comment on above: Performed By: #### C BC, CMP, MG #### [facility] [address] [place] [address] [place] NRBC% 0.2 /100{WBC} Normal 0-0.5 [facility] Comment on above: Performed By: #### C BC, CMP, MG #### [facility] [address] [place] [phone] [place] Platelet mean volume (Bld) [Entitic vol] 6.9 fL Normal 6.6-10.1 [facility] Comment on above: Performed By: #### C BC, CMP, MG #### [facility] [address] [place] [address] [place] Platelets (Bld) [#/Vol] 272 10*3/uL Normal 150-450 [facility] Comment on above: Performed By: #### C BC, CMP, MG #### [facility] [address] [place] [address] [place] RBC (Bld) [#/Vol] 2.71 10*6/uL Low 3.90-5.60 [facility] Comment on above: Performed By: #### C BC, CMP, MG #### [facility] [address] [place] [phone] [place] WBC (Bld) [#/Vol] 4.1 10*3/uL Normal 4.1-10.5 [facility] Comment on above: Performed By: #### C BC, CMP, MG #### [address] Comprehensive Metabolic Pane darren 03-30-2024 Albumin [Mass/Vol] 3.7 g/dL Normal 3.5-5.7 [facility] Comment on above: Performed By: #### C BC, CMP, MG #### [address] Albumin/Globulin [Mass ratio] 1.5 {ratio} Normal [facility] Comment on above: Performed By: #### C BC, CMP, MG #### [address] ALP [Catalytic activity/Vol] 41 U/L Normal 34-104 [facility] Comment on above: Performed By: #### C BC, CMP, MG #### [address] ALT [Catalytic activity/Vol] 21 U/L Normal 7-52 [facility] Comment on above: Performed By: #### C BC, CMP, MG #### [address] Anion gap [Moles/Vol] 14.4 mmol/L Normal 6.0-15.0 [facility] Comment on above: Performed By: #### C BC, CMP, MG #### [address] AST [Catalytic activity/Vol] 29 U/L Normal 13-39 [facility] Comment on above: Performed By: #### C BC, CMP, MG #### [address] Bilirubin [Mass/Vol] 0.5 mg/dL Normal 0.3-1.0 [facility] Comment on above: Performed By: #### C BC, CMP, MG #### [address] Calcium [Mass/Vol] 9.1 mg/dL Normal 8.6-10.3 [facility] Comment on above: Performed By: #### C BC, CMP, MG #### [facility] [address] Chloride [Moles/Vol] 97 mmol/L Low 98-107 [facility] Comment on above: Performed By: #### C BC, CMP, MG #### [facility] [address] CO2 [Moles/Vol] 31.2 mmol/L High 21.0-31.0 [facility] Comment on above: Performed By: #### C BC, CMP, MG #### [address] Creatinine [Mass/Vol] 0.95 mg/dL Normal 0.70-1.30 [facility] Comment on above: Performed By: #### C BC, CMP, MG #### [address] Creatinine Clr Calc Pharmacy 99.06 Normal [facility] Comment on above: Performed By: #### C BC, CMP, MG #### [address] GFR/1.73 sq M.predicted MDRD (S/P/Bld) [Vol rate/Area] mL/min/{1.73_m2} Normal [facility] Comment on above: Performed By: #### C BC, CMP, MG #### [address] Globulin (S) [Mass/Vol] 2.5 g/dL Normal T he [facility] Comment on above: Performed By: #### C BC, CMP, MG #### [place] [address] [place] Glucose [Mass/Vol] 95 mg/dL Normal 70-100 [facility] Comment on above: Result Comment: [place] Glucose Reference Range is dependent on time and content of last meal. Glucose of more than 200 mg/dL in a nonstressed, ambulatory subject supports the diagnosis of Diabetes Mellitus. ADA recommended reference range Performed By: #### C BC, CMP, MG #### [facility] [address] Potassium [Moles/Vol] 3.6 mmol/L Normal 3.5-5.1 [facility] Comment on above: Performed By: #### C BC, CMP, MG #### [facility] [address] Protein [Mass/Vol] 6.2 g/dL Low 6.4-8.9 [facility] Comment on above: Performed By: #### C BC, CMP, MG #### [address] Sodium [Moles/Vol] 139 mmol/L Normal 136-145 [facility] Comment on above: Performed By: #### C BC, CMP, MG #### [address] Urea nitrogen [Mass/Vol] 9 mg/dL Normal 7-25 [facility] Comment on above: Performed By: #### C BC, CMP, MG #### [address] Magnesiumon 03-30-2024 Magnesium [Mass/Vol] 1.6 mg/dL Low 1.9-2.7 [facility] Comment on above: Result Comment: PERF ORMED BY: [place] [address] PATHOLOGIST TYPEWRITER OPERATOR AUTOMATIC CHANDAN WINSTON M.D. Performed By: #### C BC, CMP, MG #### [address] Complete Blood Count Auto Di ffon 03-23-2024 Basophils (Bld) [#/Vol] 0.0 10*3/uL Normal 0.0-0.2 [facility] Comment on above: Result Comment: PERF ORMED BY: [place] [address] PATHOLOGIST TYPEWRITER OPERATOR AUTOMATIC CHANDAN WINSTON M.D. Performed By: #### C BC, CMP, MG #### [facility] [address] [place] [address] [place] Basophils/100 WBC (Bld) 0.7 % Normal . Silvia martinez [facility] Comment on above: Performed By: #### C BC, CMP, MG #### [facility] [address] Eosinophils (Bld) [#/Vol] 0.0 10*3/uL Normal 0.0-0.45 [facility] Comment on above: Performed By: #### C BC, CMP, MG #### [facility] [address] Eosinophils/100 WBC (Bld) 1.2 % Normal . [facility] Comment on above: Performed By: #### C BC, CMP, MG #### [address] Erythrocyte distribution width (RBC) [Ratio] 15.0 % High 12.0-14.8 [facility] Comment on above: Performed By: #### C BC, CMP, MG #### [address] Hematocrit (Bld) [Volume fraction] 26.8 % Low 38.8-50.0 [facility] Comment on above: Performed By: #### C BC, CMP, MG #### [address] Hemoglobin (Bld) [Mass/Vol] 9.6 g/dL Low 13.0-17.0 [facility] Comment on above: Performed By: #### C BC, CMP, MG #### [place] [address] [place] Lymphocytes (Bld) [#/Vol] 0.3 10*3/uL Low 1.00-4.8 [facility] Comment on above: Performed By: #### C BC, CMP, MG #### [place] [address] [place] Lymphocytes/100 WBC (Bld) 12.5 % Normal . [facility] Comment on above: Performed By: #### C BC, CMP, MG #### [facility] [address] MCH (RBC) [Entitic mass] 33.7 pg Normal 27.5-35.2 [facility] Comment on above: Performed By: #### C BC, CMP, MG #### [address] MCV (RBC) [Entitic vol] 94.2 fL Normal 83.5-101 [facility] Comment on above: Performed By: #### C BC, CMP, MG #### [address] Mean Corpuscular HGB Conc 35.8 g/dL High 32.5-35.6 [facility] Comment on above: Performed By: #### C BC, CMP, MG #### [address] Monocytes (Bld) [#/Vol] 0.6 10*3/uL Normal 0.0-0.8 [facility] Comment on above: Performed By: #### C BC, CMP, MG #### [address] Monocytes/100 WBC (Bld) 21.5 % Normal . [facility] Comment on above: Performed By: #### C BC, CMP, MG #### [address] Neutrophils (Bld) [#/Vol] 1.6 10*3/uL Low 1.8-7.7 [facility] Comment on above: Performed By: #### C BC, CMP, MG #### [place] [address] [place] Neutrophils/100 WBC (Bld) 64.1 % Normal . [facility] Comment on above: Performed By: #### C BC, CMP, MG #### [address] NRBC% 0.1 /100{WBC} Normal 0-0.5 [facility] Comment on above: Performed By: #### C BC, CMP, MG #### [address] Platelet mean volume (Bld) [Entitic vol] 6.9 fL Normal 6.6-10.1 [facility] Comment on above: Performed By: #### C BC, CMP, MG #### [address] Platelets (Bld) [#/Vol] 249 10*3/uL Normal 150-450 [facility] Comment on above: Performed By: #### C BC, CMP, MG #### [address] RBC (Bld) [#/Vol] 2.85 10*6/uL Low 3.90-5.60 [facility] Comment on above: Performed By: #### C BC, CMP, MG #### [address] WBC (Bld) [#/Vol] 2.6 10*3/uL Low 4.1-10.5 [facility] Comment on above: Performed By: #### C BC, CMP, MG #### [address] Comprehensive Metabolic Pane darren 03-23-2024 Albumin [Mass/Vol] 3.8 g/dL Normal 3.5-5.7 [facility] Comment on above: Performed By: #### C BC, CMP, MG #### [address] Albumin/Globulin [Mass ratio] 1.5 {ratio} Normal [facility] Comment on above: Performed By: #### C BC, CMP, MG #### [address] ALP [Catalytic activity/Vol] 49 U/L Normal 34-104 [facility] Comment on above: Performed By: #### C BC, CMP, MG #### [address] ALT [Catalytic activity/Vol] 26 U/L Normal 7-52 [facility] Comment on above: Performed By: #### C BC, CMP, MG #### [facility] [address] Anion gap [Moles/Vol] 15.7 mmol/L High 6.0-15.0 [facility] e [facility] Comment on above: Performed By: #### C BC, CMP, MG #### [facility] [address] AST [Catalytic activity/Vol] 24 U/L Normal 13-39 [facility] Comment on above: Performed By: #### C BC, CMP, MG #### [facility] [address] Bilirubin [Mass/Vol] 0.5 mg/dL Normal 0.3-1.0 [facility] Comment on above: Performed By: #### C BC, CMP, MG #### [address] Calcium [Mass/Vol] 8.6 mg/dL Normal 8.6-10.3 [facility] Comment on above: Performed By: #### C BC, CMP, MG #### [address] Chloride [Moles/Vol] 98 mmol/L Normal 98-107 [facility] Comment on above: Performed By: #### C BC, CMP, MG #### [facility] [address] [place] [address] [place] CO2 [Moles/Vol] 28.4 mmol/L Normal 21.0-31.0 [facility] Comment on above: Performed By: #### C BC, CMP, MG #### [place] [address] [place] Creatinine [Mass/Vol] 1.25 mg/dL Normal 0.70-1.30 [facility] Comment on above: Performed By: #### C BC, CMP, MG #### [place] [address] [place] Creatinine Clr Calc Pharmacy 75.28 Normal [facility] Comment on above: Performed By: #### C BC, CMP, MG #### [facility] [address] GFR/1.73 sq M.predicted MDRD (S/P/Bld) [Vol rate/Area] mL/min/{1.73_m2} Normal [facility] Comment on above: Performed By: #### C BC, CMP, MG #### [facility] [address] Globulin (S) [Mass/Vol] 2.6 g/dL Normal T [facility] Comment on above: Performed By: #### C BC, CMP, MG #### [address] Glucose [Mass/Vol] 95 mg/dL Normal 70-100 [facility] Comment on above: Result Comment: [place] Glucose Reference Range is dependent on time and content of last meal. Glucose of more than 200 mg/dL in a nonstressed, ambulatory subject supports the diagnosis of Diabetes Mellitus. ADA recommended reference range Performed By: #### C BC, CMP, MG #### [address] Potassium [Moles/Vol] 3.1 mmol/L Low 3.5-5.1 [facility] Comment on above: Performed By: #### C BC, CMP, MG #### [facility] [address] Protein [Mass/Vol] 6.4 g/dL Normal 6.4-8.9 [facility] Comment on above: Performed By: #### C BC, CMP, MG #### [facility] [address] [place] [address] [place] Sodium [Moles/Vol] 139 mmol/L Normal 136-145 [facility] Comment on above: Performed By: #### C BC, CMP, MG #### [facility] [address] Urea nitrogen [Mass/Vol] 14 mg/dL Normal 7-25 [facility] Comment on above: Performed By: #### C BC, CMP, MG #### [facility] [address] [place] [address] [place] Magnesiumon 03-23-2024 Magnesium [Mass/Vol] 1.2 mg/dL Low 1.9-2.7 [facility] Comment on above: Result Comment: PERF ORMED BY: [place] [address] PATHOLOGIST TYPEWRITER OPERATOR [employer]OM[employer] CHANDAN WINSTON M.D. Performed By: #### C BC, CMP, MG #### [facility] [address] Alanine aminotransferase [En zymatic activity/volume] in Serum or PlasmaOrdered By: Karly Nielsen on 03-15-2024 ALT [Catalytic activity/Vol] 49 U/L Normal 7-52 [facility] Comment on above: Performed By: #### M G, CMP #### [facility] [address] [place] [address] [place] Albumin [Mass/volume] in Ser um or Plasma by Bromocresol green (BCG) dye binding methoOrdered By: Karly Nielsen on 03-15-2024 Albumin BCG dye [Mass/Vol] 4.0 g/dL 3.5-5.7 [facility] Alkaline phosphatase [Enzyma tic activity/volume] in Serum or PlasmaOrdered By: Karly Nielsen on 03-15-2024 ALP [Catalytic activity/Vol] 54 U/L Normal 34-104 [facility] Comment on above: Performed By: #### M G, CMP #### [facility] [address] [place] [address] Aspartate aminotransferase [ Enzymatic activity/volume] in Serum or PlasmaOrdered By: Karly Nielsen on 03-15-2024 AST [Catalytic activity/Vol] 27 U/L Normal 13-39 [facility] Comment on above: Performed By: #### M G, CMP #### [facility] [address] [place] [address] [place] Automated basophil %Ordered By: Karly Nielsen on 03-15-2024 Basophils/100 WBC (Bld) 0.2 % Normal . [facility] Comment on above: Performed By: #### Yolanda Guerra, CMP #### [address] Automated basophil countOrde red By: Supad Al-Marraandria on 03-15-2024 Basophils (Bld) [#/Vol] 0.0 10*3/uL Normal 0.0-0.2 [facility] Comment on above: Result Comment: PERF ORMED BY: [place] [address] PATHOLOGIST TYPEWRITER OPERATOR [employer] CHANDAN WINSTON M.D. Performed By: #### Yolanda Guerra, CMP #### [address] Automated blood monocyte cou ntOrdered By: acosta Heck-Radha on 03-15-2024 Monocytes (Bld) [#/Vol] 0.7 10*3/uL Normal 0.0-0.8 [facility] Comment on above: Performed By: #### Yolanda Guerra, CMP #### [address] Automated eosinophil %Ordere d By: Karly Heck-Radha on 03-15-2024 Eosinophils/100 WBC (Bld) 0.3 % Normal . [facility] Comment on above: Performed By: #### Yolanda Guerra, CMP #### [address] Automated eosinophil countOr dered By: Supad Micah-Radha on 03-15-2024 Eosinophils (Bld) [#/Vol] 0.0 10*3/uL Normal 0.0-0.45 [facility] Comment on above: Performed By: #### Yolanda Guerra, CMP #### [address] Automated monocyte %Ordered By: Supad Al-Marraandria on 03-15-2024 Monocytes/100 WBC (Bld) 22.2 % Normal . [facility] Comment on above: Performed By: #### Yolanda Guerra, CMP #### [facility] [address] [place] [address] Automated neutrophil %Ordere d By: Karly Nielsen on 03-15-2024 Neutrophils/100 WBC (Bld) 71.1 % Normal . [facility] Comment on above: Performed By: #### Yolanda Guerra, CMP #### [address] Bilirubin.total [Mass/volume ] in Serum or PlasmaOrdered By: acosta Nielsen on 03-15-2024 Bilirubin [Mass/Vol] 0.6 mg/dL Normal 0.3-1.0 [facility] Comment on above: Performed By: #### Yolanda Guerra, CMP #### [address] Calcium [Mass/volume] in Ser um or PlasmaOrdered By: acosta Nielsen on 03-15-2024 Calcium [Mass/Vol] 8.9 mg/dL Normal 8.6-10.3 [facility] Comment on above: Performed By: #### Yolanda Guerra, CMP #### [facility] [address] [place] [address] Carbon dioxide, total [Moles /volume] in Serum or PlasmaOrdered By: Karly Garcia on 03-15-2024 CO2 [Moles/Vol] 29.1 mmol/L Normal 21.0-31.0 [facility] Comment on above: Performed By: #### Yolanda Guerra, CMP #### [facility] [address] [place] [address] [place] Chloride [Moles/volume] in S ray or PlasmaOrdered By: acosta Nielsen on 03-15-2024 Chloride [Moles/Vol] 97 mmol/L Low 98-107 [facility] Comment on above: Performed By: #### Yolanda Guerra, CMP #### [address] Complete Blood Count Auto Di ffon 03-15-2024 Mean Corpuscular HGB Conc 36.4 g/dL High 32.5-35.6 [facility] Comment on above: Performed By: #### Yolanda Guerra, CMP #### [facility] [address] [place] [address] NRBC% 0.2 /100{WBC} Normal 0-0.5 [facility] Comment on above: Performed By: #### Yoladna Guerra, CMP #### [facility] [address] [place] [address] Comprehensive Metabolic Pane darren 03-15-2024 Albumin [Mass/Vol] 4.0 g/dL Normal 3.5-5.7 [facility] Comment on above: Performed By: #### Yolanda Guerra, CMP #### [address] Creatinine Clr Calc Pharmacy 90.55 Normal [facility] Comment on above: Performed By: #### Yolanda Guerra, CMP #### [address] GFR/1.73 sq M.predicted MDRD (S/P/Bld) [Vol rate/Area] mL/min/{1.73_m2} Normal [facility] Comment on above: Performed By: #### Yolanda Guerra, CMP #### [address] Creatinine [Mass/volume] in Serum or PlasmaOrdered By: Karly Nielsen on 03-15-2024 Creatinine [Mass/Vol] 1.06 mg/dL Normal 0.70-1.30 [facility] Comment on above: Performed By: #### Yolanda Guerra, CMP #### [address] Erythrocyte distribution wid th [Ratio] by Automated countOrdered By: Karly Garcia on 03-15-2024 Erythrocyte distribution width (RBC) [Ratio] 12.8 % Normal 12.0-14.8 [facility] Comment on above: Performed By: #### Yolanda Guerra, CMP #### [facility] [address] [place] [address] [place] Erythrocytes [#/volume] in B lood by Automated countOrdered By: Karly Nielsen on 03-15-2024 RBC (Bld) [#/Vol] 2.89 10*6/uL Low 3.90-5.60 [facility] Comment on above: Performed By: #### Yolanda Guerra, CMP #### [address] Glucose [Mass/volume] in Ser um or PlasmaOrdered By: Karly Nielsen on 03-15-2024 Glucose [Mass/Vol] 115 mg/dL High 70-100 [facility] Comment on above: ADA recommended refe rence rangeRandom Glucose Reference Range is dependent on time and content of last meal. Glucose of more than 200 mg/dL in a nonstressed, ambulatory subject supports the diagnosis of Diabetes Mellitus. Result Comment: [place] om Glucose Reference Range is dependent on time and content of last meal. Glucose of more than 200 mg/dL in a nonstressed, ambulatory subject supports the diagnosis of Diabetes Mellitus. ADA recommended reference range Performed By: #### Yolanda Guerra, CMP #### [address] Hematocrit [Volume Fraction] of Blood by Automated countOrdered By: Karly Garcia on 03-15-2024 Hematocrit (Bld) [Volume fraction] 27.0 % Low 38.8-50.0 [facility] Comment on above: Performed By: #### Yolanda Guerra, CMP #### [address] Hemoglobin [Mass/volume] in BloodOrdered By: Karly Nielsen on 03-15-2024 Hemoglobin (Bld) [Mass/Vol] 9.8 g/dL Low 13.0-17.0 [facility] Comment on above: Performed By: #### Yolanda Guerra, CMP #### [place] [address] [place] Leukocytes [#/volume] correc evelyn for nucleated erythrocytes in Blood by Automated counOrdered By: Karly Nielsen on 03-15-2024 WBC corrected for nucl RBC Auto (Bld) [#/Vol] 3.1 10*3/uL Low 4.1-10.5 [facility] Leukocytes [#/volume] in Blo od by Automated countOrdered By: Karly Nielsen on 03-15-2024 WBC (Bld) [#/Vol] 3.1 10*3/uL Low 4.1-10.5 [facility] Comment on above: Performed By: #### Yolanda Guerra, CMP #### [facility] [address] [place] [address] Lymphocytes [#/volume] in Bl ood by Automated countOrdered By: Karly Nielsen on 03-15-2024 Lymphocytes (Bld) [#/Vol] 0.2 10*3/uL Low 1.00-4.8 [facility] Comment on above: Performed By: #### Yolanda Guerra, CMP #### [address] Lymphocytes/100 leukocytes i n Blood by Automated countOrdered By: Karly Nielsen on 03-15-2024 Lymphocytes/100 WBC (Bld) 6.2 % Normal . [facility] Comment on above: Performed By: #### Yolanda Guerra, CMP #### [facility] [address] [place] [address] MCH [Entitic mass] by Automa evelyn countOrdered By: Karly Nielsen on 03-15-2024 MCH (RBC) [Entitic mass] 34.0 pg Normal 27.5-35.2 [facility] Comment on above: Performed By: #### Yolanda Guerra, CMP #### [address] MCHC Auto (RBC) [Mass/Vol]Or dered By: Karly Nielsen on 03-15-2024 MCHC (RBC) [Mass/Vol] 36.4 g/dL High 32.5-35.6 [facility] MCV [Entitic volume] by Auto mated countOrdered By: Karly Nielsen on 03-15-2024 MCV (RBC) [Entitic vol] 93.5 fL Normal 83.5-101 [facility] Comment on above: Performed By: #### M Charlie, CMP #### [facility] [address] [place] [address] Magnesium [Mass/volume] in S ray or PlasmaOrdered By: Karly Nielsen on 03-15-2024 Magnesium [Mass/Vol] 1.0 mg/dL Low 1.9-2.7 [facility] Comment on above: Result Comment: PERF ORMED BY: [place] [address] PATHOLOGIST TYPEWRITER OPERATOR [employer]OM[employer] CHANDAN WINSTON M.D. Performed By: #### M Charlie, CMP #### [address] Neutrophils [#/volume] in Bl ood by Automated countOrdered By: Karly Nielsen on 03-15-2024 Neutrophils (Bld) [#/Vol] 2.2 10*3/uL Normal 1.8-7.7 [facility] Comment on above: Performed By: #### M Charlie, CMP #### [address] No Panel InformationOrdered By: Karly Nielsen on 03-15-2024 Estimated GFR (CKD-EPI) > 60.0 mL/Min [facility] Creatinine Clearance (Chem 90.55 [facility] Nucleated erythrocytes [Pres ence] in Blood by Automated countOrdered By: Karly Nielsen on 03-15-2024 Nucleated RBC Auto Ql (Bld) 0.2 /100{WBC} 0-0.5 [facility] Platelet mean volume [Entiti c volume] in Blood by Automated countOrdered By: Karly Nielsen on 03-15-2024 Platelet mean volume (Bld) [Entitic vol] 6.8 fL Normal 6.6-10.1 [facility] Comment on above: Performed By: #### M Charlie, CMP #### [facility] [address] [place] [address] Platelets [#/volume] in Bloo d by Automated countOrdered By: Karly Nielsen on 03-15-2024 Platelets (Bld) [#/Vol] 182 10*3/uL Normal 150-450 [facility] Comment on above: Performed By: #### Yolanda Guerra, CMP #### [address] Potassium [Moles/volume] in Serum or PlasmaOrdered By: Karly Nielsen on 03-15-2024 Potassium [Moles/Vol] 3.0 mmol/L Low 3.5-5.1 [facility] Comment on above: Performed By: #### Yolanda Guerra, CMP #### [address] Protein [Mass/volume] in Ser um or PlasmaOrdered By: Kraly Nielsen on 03-15-2024 Protein [Mass/Vol] 6.8 g/dL Normal 6.4-8.9 [facility] Comment on above: Performed By: #### Yolanda Guerra, CMP #### [address] Serum globulin measurement b y calculation (mass/volume)Ordered By: Karly Garcia on 03-15-2024 Globulin (S) [Mass/Vol] 2.8 g/dL Normal [facility] Comment on above: Performed By: #### Yolanda Guerra, CMP #### [address] Serum or plasma albumin/glob ulin mass ratioOrdered By: Karly Nielsen on 03-15-2024 Albumin/Globulin [Mass ratio] 1.4 {ratio} Normal [facility] Comment on above: Performed By: #### Yolanda Guerra, CMP #### [address] Serum or plasma anion gap de terminationOrdered By: Karly Nielsen on 03-15-2024 Anion gap [Moles/Vol] 12.9 mmol/L Normal 6.0-15.0 [facility] Comment on above: Performed By: #### Yolanda Guerra, CMP #### [address] Sodium [Moles/volume] in Ser um or PlasmaOrdered By: Mhd Al-Marrawi on 03-15-2024 Sodium [Moles/Vol] 136 mmol/L Normal 136-145 [facility] Comment on above: Performed By: #### M G, CMP #### [facility] [address] Urea nitrogen [Mass/volume] in Serum or PlasmaOrdered By: Mhd Al-Marrawi on 03-15-2024 Urea nitrogen [Mass/Vol] 17 mg/dL Normal 7-25 [facility] Comment on above: Performed By: #### M Charlie, CMP #### [facility] [address] Basophils Auto (Bld) [#/Vol] on 03-09-2024 Basophils (Bld) [#/Vol] 0.0 10 3/uL 0.0-0.1 [facility] Basophils/100 WBC Auto (Bld) on 03-09-2024 Basophils/100 WBC (Bld) 0.4 % 0.2-2.0 [facility] Eosinophils/100 WBC Auto (Bl d)on 03-09-2024 Eosinophils/100 WBC (Bld) 0.4 % Low 0.9-7.0 [facility] Erythrocyte distribution wid th Auto (RBC) [Ratio]on 03-09-2024 Erythrocyte distribution width (RBC) [Ratio] 11.7 % 11.0-15.0 [facility] Estimated glomerular filtrat ion rate (GFR) non- Americanon 03-09-2024 GFR/1.73 sq M.predicted among non-blacks MDRD (S/P/Bld) [Vol rate/Area] 45 mL/min/{1.73_m2} Low >=60 [facility] Globulin Calc (S) [Mass/Vol] on 03-09-2024 Globulin (S) [Mass/Vol] 3.5 g/dL F [facility] Hematocrit Auto (Bld) [Volum e fraction]on 03-09-2024 Hematocrit (Bld) [Volume fraction] 35.1 % Low 42.0-54.0 [facility] Hemoglobin [Mass/volume] in Bloodon 03-09-2024 Hemoglobin (Bld) [Mass/Vol] 12.9 g/dL Low 14.0-18.0 [facility] Laboratory - Chemistry and C hemistry - challengeon 03-09-2024 Albumin [Mass/Vol] 3.9 g/dL 3.4-5.0 [facility] ALP [Catalytic activity/Vol] 74 U/L 46-116 [facility] ALT [Catalytic activity/Vol] 111 U/L High 16-63 [facility] AST [Catalytic activity/Vol] 47 U/L High 15-37 [facility] Bilirubin [Mass/Vol] 0.8 mg/dL 0.2-1.0 [facility] Calcium [Mass/Vol] 9.2 mg/dL 8.5-10.1 [facility] Chloride [Moles/Vol] 93 mmol/L Low 98-107 [facility] CO2 [Moles/Vol] 24.6 mmol/L 21.0-32.0 [facility] Creatinine [Mass/Vol] 1.58 mg/dL High 0.70-1.30 [facility] GFR/1.73 sq M.predicted MDRD (S/P/Bld) [Vol rate/Area] 55 mL/min/{1.73_m2} Low >=60 [facility] Glucose [Mass/Vol] 120 mg/dL High 74-106 [facility] Magnesium [Mass/Vol] 1.2 mg/dL Low 1.8-2.4 [facility] Potassium [Moles/Vol] 2.6 mmol/L Low 3.5-5.1 [facility] Comment on above: RESULTS CALLED TO JEROMY VELÁZQUEZ NP Protein [Mass/Vol] 7.4 g/dL 6.4-8.2 [facility] Sodium [Moles/Vol] 136 mmol/L 136-145 [facility] Urea nitrogen [Mass/Vol] 28.0 mg/dL High 7.0-18.0 [facility] Urea nitrogen/Creatinine [Mass ratio] 17.7 mg/mg [facility] Laboratory - Hematology and Cell countson 03-09-2024 Immature granulocytes/100 WBC (Bld) 0.4 % 0.0-0.5 [facility] Leukocytes [#/volume] correc evelyn for nucleated erythrocytes in Blood by Automated counon 03-09-2024 WBC corrected for nucl RBC Auto (Bld) [#/Vol] 2.7 10 3/uL Low 4.0-11.0 [facility] Lymphocytes Auto (Bld) [#/Vo l]on 03-09-2024 Lymphocytes (Bld) [#/Vol] 0.3 10 3/uL Low 1.2-3.8 [facility] Lymphocytes/100 WBC Auto (Bl d)on 03-09-2024 Lymphocytes/100 WBC (Bld) 12.4 % Low 20.5-60.0 [facility] MCH Auto (RBC) [Entitic mass ]on 03-09-2024 MCH (RBC) [Entitic mass] 33.2 pg 25.9-34.0 [facility] MCHC Auto (RBC) [Mass/Vol]on 03-09-2024 MCHC (RBC) [Mass/Vol] 36.8 g/dL High 29.9-35.2 [facility] MCV Auto (RBC) [Entitic vol] on 03-09-2024 MCV (RBC) [Entitic vol] 90.2 fL 80.0-94.0 [facility] Monocytes Auto (Bld) [#/Vol] on 03-09-2024 Monocytes (Bld) [#/Vol] 0.7 10 3/uL 0.3-0.8 [facility] Monocytes/100 WBC Auto (Bld) on 03-09-2024 Monocytes/100 WBC (Bld) 25.1 % High 1.7-12.0 [facility] Neutrophils Auto (Bld) [#/Vo l]on 03-09-2024 Neutrophils (Bld) [#/Vol] 1.6 10 3/uL 1.4-6.5 [facility] Neutrophils/100 WBC Auto (Bl d)on 03-09-2024 Neutrophils/100 WBC (Bld) 61.3 % 43.0-75.0 [facility] No Panel Informationon 03-09 Eosinophils # (Auto) 0.0 10 3/uL 0.0-0.7 [facility] Immature Granulocyte # (Auto) 0.01 10 3/uL 0.00-0.03 [facility] Platelet mean volume Auto (B ld) [Entitic vol]on 03-09-2024 Platelet mean volume (Bld) [Entitic vol] 9.1 fL Low 9.5-13.5 [facility] Platelets Auto (Bld) [#/Vol] on 03-09-2024 Platelets (Bld) [#/Vol] 188 10 3/uL 150-450 [facility] RBC Auto (Bld) [#/Vol]on RBC (Bld) [#/Vol] 3.89 10 6/uL Low 4.70-6.10 [facility] Serum or plasma albumin/glob ulin mass ratioon 03-09-2024 Albumin/Globulin [Mass ratio] 1.1 {ratio} [facility] Serum or plasma anion gap de terminationon 03-09-2024 Anion gap [Moles/Vol] 21.0 mmol/L [facility] Alanine aminotransferase [En zymatic activity/volume] in Serum or PlasmaOrdered By: Karly Nielsen on 03-01-2024 ALT [Catalytic activity/Vol] 60 U/L High 7-52 [facility] Comment on above: Performed By: #### C BC, CMP, MG #### [facility] [address] Albumin [Mass/volume] in Ser um or Plasma by Bromocresol green (BCG) dye binding methoOrdered By: Karly Nielsen on 03-01-2024 Albumin BCG dye [Mass/Vol] 4.4 g/dL 3.5-5.7 [facility] Alkaline phosphatase [Enzyma tic activity/volume] in Serum or PlasmaOrdered By: Karly Nielsen on 03-01-2024 ALP [Catalytic activity/Vol] 63 U/L Normal 34-104 [facility] Comment on above: Performed By: #### C BC, CMP, MG #### [address] Aspartate aminotransferase [ Enzymatic activity/volume] in Serum or PlasmaOrdered By: Karly Nielsen on 03-01-2024 AST [Catalytic activity/Vol] 32 U/L Normal 13-39 [facility] Comment on above: Performed By: #### C BC, CMP, MG #### [address] Automated basophil %Ordered By: Karly Nielsen on 03-01-2024 Basophils/100 WBC (Bld) 0.3 % Normal . [facility] Comment on above: Performed By: #### C BC, CMP, MG #### [address] Automated basophil countOrde red By: Karly Nielsen on 03-01-2024 Basophils (Bld) [#/Vol] 0.0 10*3/uL Normal 0.0-0.2 [facility] Comment on above: Result Comment: PERF ORMED BY: [place] [address] PATHOLOGIST TYPEWRITER OPERATOR [employer]OM[employer] CHANDAN WINSTON M.D. Performed By: #### C BC, CMP, MG #### [address] Automated blood monocyte cou ntOrdered By: Karly Nielsen on 03-01-2024 Monocytes (Bld) [#/Vol] 0.7 10*3/uL Normal 0.0-0.8 [facility] Comment on above: Performed By: #### C BC, CMP, MG #### [address] Automated eosinophil %Ordere d By: Karly Nielsen on 03-01-2024 Eosinophils/100 WBC (Bld) 0.8 % Normal . [facility] Comment on above: Performed By: #### C BC, CMP, MG #### [address] Automated eosinophil countOr dered By: Karly Nielsen on 03-01-2024 Eosinophils (Bld) [#/Vol] 0.0 10*3/uL Normal 0.0-0.45 [facility] Comment on above: Performed By: #### C BC, CMP, MG #### [facility] [address] Automated monocyte %Ordered By: acosta Al-Tamannaraandria on 03-01-2024 Monocytes/100 WBC (Bld) 12.7 % Normal . [facility] Comment on above: Performed By: #### C BC, CMP, MG #### [facility] [address] Automated neutrophil %Ordere d By: acosta Micah-Tamannaraandria on 03-01-2024 Neutrophils/100 WBC (Bld) 77.9 % Normal . [facility] Comment on above: Performed By: #### C BC, CMP, MG #### [facility] [address] Bilirubin.total [Mass/volume ] in Serum or PlasmaOrdered By: acosta Micah-Tamannamicheal on 03-01-2024 Bilirubin [Mass/Vol] 0.7 mg/dL Normal 0.3-1.0 [facility] Comment on above: Performed By: #### C BC, CMP, MG #### [address] Calcium [Mass/volume] in Ser um or PlasmaOrdered By: acosta -Tamannamicheal on 03-01-2024 Calcium [Mass/Vol] 9.8 mg/dL Normal 8.6-10.3 [facility] Comment on above: Performed By: #### C BC, CMP, MG #### [facility] [address] [place] [address] [place] Carbon dioxide, total [Moles /volume] in Serum or PlasmaOrdered By: d Al- Tamannaraandria on 03-01-2024 CO2 [Moles/Vol] 29.0 mmol/L Normal 21.0-31.0 [facility] Comment on above: Performed By: #### C BC, CMP, MG #### [address] Chloride [Moles/volume] in S ray or PlasmaOrdered By: Karly Nielsen on 03-01-2024 Chloride [Moles/Vol] 96 mmol/L Low 98-107 [facility] Comment on above: Performed By: #### C BC, CMP, MG #### [address] Complete Blood Count Auto Di ffon 03-01-2024 Mean Corpuscular HGB Conc 36.2 g/dL High 32.5-35.6 [facility] Comment on above: Performed By: #### C BC, CMP, MG #### [address] NRBC% 0.1 /100{WBC} Normal 0-0.5 [facility] Comment on above: Performed By: #### C BC, CMP, MG #### [address] Comprehensive Metabolic Pane darren 03-01-2024 Albumin [Mass/Vol] 4.4 g/dL Normal 3.5-5.7 [facility] Comment on above: Performed By: #### C BC, CMP, MG #### [address] Creatinine Clr Calc Pharmacy 70.78 Normal [facility] Comment on above: Performed By: #### C BC, CMP, MG #### [address] GFR/1.73 sq M.predicted MDRD (S/P/Bld) [Vol rate/Area] 59.129 mL/min/{1.73_m2} Normal [facility] Comment on above: Performed By: #### C BC, CMP, MG #### [address] Creatinine [Mass/volume] in Serum or PlasmaOrdered By: Karly Nielsen on 03-01-2024 Creatinine [Mass/Vol] 1.39 mg/dL High 0.70-1.30 [facility] Comment on above: Performed By: #### C BC, CMP, MG #### [facility] [address] Erythrocyte distribution wid th [Ratio] by Automated countOrdered By: aKrly Garcia on 03-01-2024 Erythrocyte distribution width (RBC) [Ratio] 11.8 % Low 12.0-14.8 [facility] Comment on above: Performed By: #### C BC, CMP, MG #### [facility] [address] Erythrocytes [#/volume] in B lood by Automated countOrdered By: Karly Nielsen on 03-01-2024 RBC (Bld) [#/Vol] 3.82 10*6/uL Low 3.90-5.60 [facility] Comment on above: Performed By: #### C BC, CMP, MG #### [address] Glucose [Mass/volume] in Ser um or PlasmaOrdered By: Karly Nielsen on 03-01-2024 Glucose [Mass/Vol] 109 mg/dL High 70-100 [facility] Comment on above: ADA recommended refe rence rangeRandom Glucose Reference Range is dependent on time and content of last meal. Glucose of more than 200 mg/dL in a nonstressed, ambulatory subject supports the diagnosis of Diabetes Mellitus. Result Comment: [place] Glucose Reference Range is dependent on time and content of last meal. Glucose of more than 200 mg/dL in a nonstressed, ambulatory subject supports the diagnosis of Diabetes Mellitus. ADA recommended reference range Performed By: #### C BC, CMP, MG #### [facility] [address] Hematocrit [Volume Fraction] of Blood by Automated countOrdered By: Karly Garcia on 03-01-2024 Hematocrit (Bld) [Volume fraction] 35.4 % Low 38.8-50.0 [facility] Comment on above: Performed By: #### C BC, CMP, MG #### [address] Hemoglobin [Mass/volume] in BloodOrdered By: Karly Heck-Radha on 03-01-2024 Hemoglobin (Bld) [Mass/Vol] 12.8 g/dL Low 13.0-17.0 [facility] Comment on above: Performed By: #### C BC, CMP, MG #### [address] Leukocytes [#/volume] correc evelyn for nucleated erythrocytes in Blood by Automated counOrdered By: acosta Heck-Radha on 03-01-2024 WBC corrected for nucl RBC Auto (Bld) [#/Vol] 5.3 10*3/uL 4.1-10.5 [facility] Leukocytes [#/volume] in Blo od by Automated countOrdered By: acosta Heck-Radha on 03-01-2024 WBC (Bld) [#/Vol] 5.3 10*3/uL Normal 4.1-10.5 [facility] Comment on above: Performed By: #### C BC, CMP, MG #### [place] [address] [place] Lymphocytes [#/volume] in Bl ood by Automated countOrdered By: acosta Heck-Radha on 03-01-2024 Lymphocytes (Bld) [#/Vol] 0.4 10*3/uL Low 1.00-4.8 [facility] Comment on above: Performed By: #### C BC, CMP, MG #### [place] [address] [place] Lymphocytes/100 leukocytes i n Blood by Automated countOrdered By: acosta Heck-Radha on 03-01-2024 Lymphocytes/100 WBC (Bld) 8.3 % Normal . [facility] Comment on above: Performed By: #### C BC, CMP, MG #### [place] [address] [place] MCH [Entitic mass] by Automa evelyn countOrdered By: acosta Heck-Radha on 03-01-2024 MCH (RBC) [Entitic mass] 33.6 pg Normal 27.5-35.2 [facility] Comment on above: Performed By: #### C BC, CMP, MG #### [facility] [address] [place] [address] MCHC Auto (RBC) [Mass/Vol]Or dered By: Karly Nielsen on 03-01-2024 MCHC (RBC) [Mass/Vol] 36.2 g/dL High 32.5-35.6 [facility] MCV [Entitic volume] by Auto mated countOrdered By: Karly Nielsen on 03-01-2024 MCV (RBC) [Entitic vol] 92.8 fL Normal 83.5-101 [facility] Comment on above: Performed By: #### C BC, CMP, MG #### [address] Magnesium [Mass/volume] in S ray or PlasmaOrdered By: Karly Nielsen on 03-01-2024 Magnesium [Mass/Vol] 1.7 mg/dL Low 1.9-2.7 [facility] Comment on above: Result Comment: PERF ORMED BY: [place] [address] PATHOLOGIST TYPEWRITER OPERATOR [employer] CHANDAN WINSTON M.D. Performed By: #### C BC, CMP, MG #### [address] Neutrophils [#/volume] in Bl ood by Automated countOrdered By: Karly Nielsen on 03-01-2024 Neutrophils (Bld) [#/Vol] 4.1 10*3/uL Normal 1.8-7.7 [facility] Comment on above: Performed By: #### C BC, CMP, MG #### [address] No Panel InformationOrdered By: Karly Nielsen on 03-01-2024 Estimated GFR (CKD-EPI) 59.129 mL/Min [facility] Creatinine Clearance (Chem 70.78 [facility] Nucleated erythrocytes [Pres ence] in Blood by Automated countOrdered By: Karly Nielsen on 03-01-2024 Nucleated RBC Auto Ql (Bld) 0.1 /100{WBC} 0-0.5 [facility] Platelet mean volume [Entiti c volume] in Blood by Automated countOrdered By: acosta Nielsen on 03-01-2024 Platelet mean volume (Bld) [Entitic vol] 6.7 fL Normal 6.6-10.1 [facility] Comment on above: Performed By: #### C BC, CMP, MG #### [facility] [address] [place] [address] Platelets [#/volume] in Bloo d by Automated countOrdered By: Karly Nielsen on 03-01-2024 Platelets (Bld) [#/Vol] 187 10*3/uL Normal 150-450 [facility] Comment on above: Performed By: #### C BC, CMP, MG #### [facility] [address] [place] [address] Potassium [Moles/volume] in Serum or PlasmaOrdered By: acosta Nielsen on 03-01-2024 Potassium [Moles/Vol] 3.5 mmol/L Normal 3.5-5.1 [facility] Comment on above: Performed By: #### C BC, CMP, MG #### [address] Protein [Mass/volume] in Ser um or PlasmaOrdered By: Karly Nielsen on 03-01-2024 Protein [Mass/Vol] 7.7 g/dL Normal 6.4-8.9 [facility] Comment on above: Performed By: #### C BC, CMP, MG #### [place] [address] [place] Serum globulin measurement b y calculation (mass/volume)Ordered By: Karly Garcia on 03-01-2024 Globulin (S) [Mass/Vol] 3.3 g/dL Normal [facility] Comment on above: Performed By: #### C BC, CMP, MG #### [facility] [address] [place] [address] Serum or plasma albumin/glob ulin mass ratioOrdered By: Karly Nielsen on 03-01-2024 Albumin/Globulin [Mass ratio] 1.3 {ratio} Normal [facility] Comment on above: Performed By: #### C BC, CMP, MG #### [address] Serum or plasma anion gap de terminationOrdered By: Karly Nielsen on 03-01-2024 Anion gap [Moles/Vol] 13.5 mmol/L Normal 6.0-15.0 [facility] Comment on above: Performed By: #### C BC, CMP, MG #### [address] Sodium [Moles/volume] in Ser um or PlasmaOrdered By: Karly Nielsen on 03-01-2024 Sodium [Moles/Vol] 135 mmol/L Low 136-145 [facility] Comment on above: Performed By: #### C BC, CMP, MG #### [facility] [address] [place] [address] Urea nitrogen [Mass/volume] in Serum or PlasmaOrdered By: Karly Nielsen on 03-01-2024 Urea nitrogen [Mass/Vol] 31 mg/dL High 7- [facility] Comment on above: Performed By: #### C BC, CMP, MG #### [place] [address] [place] Alanine aminotransferase [En zymatic activity/volume] in Serum or PlasmaOrdered By: acosta Nielsen on 02-23-2024 ALT [Catalytic activity/Vol] 35 U/L Normal [facility] Comment on above: Performed By: #### M G, CMP #### [facility] [address] [place] [address] [place] Albumin [Mass/volume] in Ser um or Plasma by Bromocresol green (BCG) dye binding methoOrdered By: Karly Nielsen on 02-23-2024 Albumin BCG dye [Mass/Vol] 4.2 g/dL 3.5-5.7 [facility] Alkaline phosphatase [Enzyma tic activity/volume] in Serum or PlasmaOrdered By: Karly Nielsen on 02-23-2024 ALP [Catalytic activity/Vol] 49 U/L Normal 34-104 [facility] Comment on above: Performed By: #### M Charlie, CMP #### [address] Aspartate aminotransferase [ Enzymatic activity/volume] in Serum or PlasmaOrdered By: Karly Nielsen on 02-23-2024 AST [Catalytic activity/Vol] 24 U/L Normal 13-39 [facility] Comment on above: Performed By: #### Yolanda Guerra, CMP #### [address] Automated basophil %Ordered By: Karly Nielsen on 02-23-2024 Basophils/100 WBC (Bld) 0.5 % Normal . [facility] Comment on above: Performed By: #### Yolanda Guerra, CMP #### [address] Automated basophil countOrde red By: Karly Nielsen on 02-23-2024 Basophils (Bld) [#/Vol] 0.0 10*3/uL Normal 0.0-0.2 [facility] Comment on above: Result Comment: PERF ORMED BY: [place] [address] PATHOLOGIST TYPEWRITER OPERATOR [employer] CHANDAN WINSTON M.D. Performed By: #### M G, CMP #### [address] Automated blood monocyte cou ntOrdered By: Karly Nielsen on 02-23-2024 Monocytes (Bld) [#/Vol] 0.6 10*3/uL Normal 0.0-0.8 [facility] Comment on above: Performed By: #### Yolanda Guerra, CMP #### [address] Automated eosinophil %Ordere d By: Karly Nielsen on 02-23-2024 Eosinophils/100 WBC (Bld) 1.6 % Normal . [facility] Comment on above: Performed By: #### Yolanda Guerra, CMP #### [facility] [address] Automated eosinophil countOr dered By: acosta Nielsen on 02-23-2024 Eosinophils (Bld) [#/Vol] 0.1 10*3/uL Normal 0.0-0.45 [facility] Comment on above: Performed By: #### Yolanda Guerra, CMP #### [address] Automated monocyte %Ordered By: acosta Nielsen on 02-23-2024 Monocytes/100 WBC (Bld) 11.3 % Normal . [facility] Comment on above: Performed By: #### Yolanda Guerra, CMP #### [address] Automated neutrophil %Ordere d By: acosta Nielsen on 02-23-2024 Neutrophils/100 WBC (Bld) 76.3 % Normal . [facility] Comment on above: Performed By: #### Yolanda Guerra, CMP #### [address] Bilirubin.total [Mass/volume ] in Serum or PlasmaOrdered By: Karly Nielsen on 02-23-2024 Bilirubin [Mass/Vol] 0.6 mg/dL Normal 0.3-1.0 [facility] Comment on above: Performed By: #### Yolanda Guerra, CMP #### [facility] [address] [place] [address] Calcium [Mass/volume] in Ser um or PlasmaOrdered By: Karly Nielsen on 02-23-2024 Calcium [Mass/Vol] 9.6 mg/dL Normal 8.6-10.3 [facility] Comment on above: Performed By: #### Yolanda Guerra, CMP #### [facility] [address] [place] [address] Carbon dioxide, total [Moles /volume] in Serum or PlasmaOrdered By: Karly Garcia on 02-23-2024 CO2 [Moles/Vol] 29.7 mmol/L Normal 21.0-31.0 [facility] Comment on above: Performed By: #### Yolanda Guerra, CMP #### [address] Chloride [Moles/volume] in S ray or PlasmaOrdered By: Karly Nielsen on 02-23-2024 Chloride [Moles/Vol] 99 mmol/L Normal 98-107 [facility] Comment on above: Performed By: #### Yolanda Guerra, CMP #### [address] Complete Blood Count Auto Di ffon 02-23-2024 Mean Corpuscular HGB Conc 35.3 g/dL Normal 32.5-35.6 [facility] Comment on above: Performed By: #### Yolanda Guerra, CMP #### [address] NRBC% 0.1 /100{WBC} Normal 0-0.5 [facility] Comment on above: Performed By: #### Yolanda Guerra, CMP #### [address] Comprehensive Metabolic Pane darren 02-23-2024 Albumin [Mass/Vol] 4.2 g/dL Normal 3.5-5.7 [facility] Comment on above: Performed By: #### Yolanda Guerra, CMP #### [address] Creatinine Clr Calc Pharmacy 94.16 Normal [facility] Comment on above: Performed By: #### Yolanda Guerra, CMP #### [place] [address] [place] GFR/1.73 sq M.predicted MDRD (S/P/Bld) [Vol rate/Area] mL/min/{1.73_m2} Normal [facility] Comment on above: Performed By: #### Yolanda Guerra, CMP #### [facility] [address] Creatinine [Mass/volume] in Serum or PlasmaOrdered By: Karly Nielsen on 02-23-2024 Creatinine [Mass/Vol] 1.05 mg/dL Normal 0.70-1.30 [facility] Comment on above: Performed By: #### M Charlie, CMP #### [address] Erythrocyte distribution wid th [Ratio] by Automated countOrdered By: acosta Garcia on 02-23-2024 Erythrocyte distribution width (RBC) [Ratio] 12.2 % Normal 12.0-14.8 [facility] Comment on above: Performed By: #### Yolanda Guerra, CMP #### [address] Erythrocytes [#/volume] in B lood by Automated countOrdered By: Karly Nielsen on 02-23-2024 RBC (Bld) [#/Vol] 4.01 10*6/uL Normal 3.90-5.60 [facility] Comment on above: Performed By: #### M Charlie, CMP #### [address] Glucose [Mass/volume] in Ser um or PlasmaOrdered By: Karly Nielsen on 02-23-2024 Glucose [Mass/Vol] 107 mg/dL High 70-100 [facility] Comment on above: ADA recommended refe rence rangeRandom Glucose Reference Range is dependent on time and content of last meal. Glucose of more than 200 mg/dL in a nonstressed, ambulatory subject supports the diagnosis of Diabetes Mellitus. Result Comment: [place] Glucose Reference Range is dependent on time and content of last meal. Glucose of more than 200 mg/dL in a nonstressed, ambulatory subject supports the diagnosis of Diabetes Mellitus. ADA recommended reference range Performed By: #### M G, CMP #### [place] [address] [place] Hematocrit [Volume Fraction] of Blood by Automated countOrdered By: Karly Garcia on 02-23-2024 Hematocrit (Bld) [Volume fraction] 37.5 % Low 38.8-50.0 [facility] Comment on above: Performed By: #### Yolanda Guerra, CMP #### [address] Hemoglobin [Mass/volume] in BloodOrdered By: acosta Nielsen on 02-23-2024 Hemoglobin (Bld) [Mass/Vol] 13.3 g/dL Normal 13.0-17.0 [facility] Comment on above: Performed By: #### Yolanda Guerra, CMP #### [address] Leukocytes [#/volume] correc evelyn for nucleated erythrocytes in Blood by Automated counOrdered By: Karly Nielsen on 02-23-2024 WBC corrected for nucl RBC Auto (Bld) [#/Vol] 5.7 10*3/uL 4.1-10.5 [facility] Leukocytes [#/volume] in Blo od by Automated countOrdered By: acosta Nielsen on 02-23-2024 WBC (Bld) [#/Vol] 5.7 10*3/uL Normal 4.1-10.5 [facility] Comment on above: Performed By: #### Yolanda Guerra, CMP #### [place] [address] [place] Lymphocytes [#/volume] in Bl ood by Automated countOrdered By: Karly Nielsen on 02-23-2024 Lymphocytes (Bld) [#/Vol] 0.6 10*3/uL Low 1.00-4.8 [facility] Comment on above: Performed By: #### Yolanda Guerra, CMP #### [place] [address] [place] Lymphocytes/100 leukocytes i n Blood by Automated countOrdered By: acosta Nielsen on 02-23-2024 Lymphocytes/100 WBC (Bld) 10.3 % Normal . [facility] Comment on above: Performed By: #### Yolanda Guerra, CMP #### [address] MCH [Entitic mass] by Automa evelyn countOrdered By: Karly Nielsen on 02-23-2024 MCH (RBC) [Entitic mass] 33.1 pg Normal 27.5-35.2 [facility] Comment on above: Performed By: #### M Charlie, CMP #### [address] MCHC Auto (RBC) [Mass/Vol]Or dered By: Karly Nielsen on 02-23-2024 MCHC (RBC) [Mass/Vol] 35.3 g/dL 32.5-35.6 [facility] MCV [Entitic volume] by Auto mated countOrdered By: Karly Nielsen on 02-23-2024 MCV (RBC) [Entitic vol] 93.6 fL Normal 83.5-101 F [facility] Comment on above: Performed By: #### Yolanda Guerra, CMP #### [address] Magnesium [Mass/volume] in S ray or PlasmaOrdered By: Karly Nielsen on 02-23-2024 Magnesium [Mass/Vol] 1.5 mg/dL Low 1.9-2.7 [facility] Comment on above: Result Comment: PERF ORMED BY: [place] [address] PATHOLOGIST TYPEWRITER OPERATOR [employer] CHANDAN WINSTON M.D. Performed By: #### M Charlie, CMP #### [address] Neutrophils [#/volume] in Bl ood by Automated countOrdered By: Karly Nielsen on 02-23-2024 Neutrophils (Bld) [#/Vol] 4.4 10*3/uL Normal 1.8-7.7 [facility] Comment on above: Performed By: #### Yolanda Guerra, CMP #### [address] No Panel InformationOrdered By: Karly Nielsen on 02-23-2024 Estimated GFR (CKD-EPI) > 60.0 mL/Min [facility] Creatinine Clearance (Chem 94.16 [facility] Nucleated erythrocytes [Pres ence] in Blood by Automated countOrdered By: Karly Nielsen on 02-23-2024 Nucleated RBC Auto Ql (Bld) 0.1 /100{WBC} 0-0.5 [facility] Platelet mean volume [Entiti c volume] in Blood by Automated countOrdered By: Karly Nielsen on 02-23-2024 Platelet mean volume (Bld) [Entitic vol] 7.1 fL Normal 6.6-10.1 [facility] Comment on above: Performed By: #### Yolanda Guerra, CMP #### [facility] [address] [place] [address] [place] Platelets [#/volume] in Bloo d by Automated countOrdered By: Karly Nielsen on 02-23-2024 Platelets (Bld) [#/Vol] 148 10*3/uL Low 150-450 [facility] Comment on above: Performed By: #### Yolanda Guerra, CMP #### [facility] [address] [place] [address] [place] Potassium [Moles/volume] in Serum or PlasmaOrdered By: Karly Nielsen on 02-23-2024 Potassium [Moles/Vol] 4.0 mmol/L Normal 3.5-5.1 [facility] Comment on above: Performed By: #### Yolanda Guerra, CMP #### [facility] [address] [place] [address] [place] Protein [Mass/volume] in Ser um or PlasmaOrdered By: Karly Nielsen on 02-23-2024 Protein [Mass/Vol] 7.2 g/dL Normal 6.4-8.9 [facility] Comment on above: Performed By: #### Yolanda Guerra, CMP #### [facility] [address] [place] [address] Serum globulin measurement b y calculation (mass/volume)Ordered By: Karly Garcia on 02-23-2024 Globulin (S) [Mass/Vol] 3.0 g/dL Normal [facility] Comment on above: Performed By: #### Yolanda Guerra, CMP #### [address] Serum or plasma albumin/glob ulin mass ratioOrdered By: Karly Nielsen on 02-23-2024 Albumin/Globulin [Mass ratio] 1.4 {ratio} Normal [facility] Comment on above: Performed By: #### Yolanda Guerra, CMP #### [address] Serum or plasma anion gap de terminationOrdered By: Karly Nielsen on 02-23-2024 Anion gap [Moles/Vol] 11.3 mmol/L Normal 6.0-15.0 [facility] Comment on above: Performed By: #### Yolanda Guerra, CMP #### [address] Sodium [Moles/volume] in Ser um or PlasmaOrdered By: Karly Nielsen on 02-23-2024 Sodium [Moles/Vol] 136 mmol/L Normal 136-145 [facility] Comment on above: Performed By: #### Yolanda Guerra, CMP #### [address] Urea nitrogen [Mass/volume] in Serum or PlasmaOrdered By: acosta Nielsen on 02-23-2024 Urea nitrogen [Mass/Vol] 17 mg/dL Normal 7-25 [facility] Comment on above: Performed By: #### Yolanda Guerra, CMP #### [address] Complete Blood Count Auto Di ffon 02-17-2024 Basophils (Bld) [#/Vol] 0.0 10*3/uL Normal 0.0-0.2 [facility] Comment on above: Result Comment: PERF ORMED BY: [place] [address] PATHOLOGIST TYPEWRITER OPERATOR AUTOMATIC CHANDAN WINSTON M.D. Performed By: #### Yolanda Guerra, CMP #### [place] [address] [place] Basophils/100 WBC (Bld) 0.8 % Normal . T ju[facility] Comment on above: Performed By: #### Yolanda Guerra, CMP #### [place] [address] [place] Eosinophils (Bld) [#/Vol] 0.1 10*3/uL Normal 0.0-0.45 [facility] Comment on above: Performed By: #### Yolanda Guerra, CMP #### [place] [address] [place] Eosinophils/100 WBC (Bld) 2.2 % Normal . [facility] Comment on above: Performed By: #### Yolanda Guerra, CMP #### [address] Erythrocyte distribution width (RBC) [Ratio] 12.0 % Normal 12.0-14.8 [facility] Comment on above: Performed By: #### Yolanda Guerra, CMP #### [address] Hematocrit (Bld) [Volume fraction] 39.3 % Normal 38.8-50.0 [facility] Comment on above: Performed By: #### Yolanda Guerra, CMP #### [place] [address] [place] Hemoglobin (Bld) [Mass/Vol] 13.9 g/dL Normal 13.0-17.0 [facility] Comment on above: Performed By: #### Yolanda Guerra, CMP #### [place] [address] [place] Lymphocytes (Bld) [#/Vol] 0.7 10*3/uL Low 1.00-4.8 [facility] Comment on above: Performed By: #### Yolanda Guerra, CMP #### [place] [address] [place] Lymphocytes/100 WBC (Bld) 11.0 % Normal . [facility] Comment on above: Performed By: #### Yolanda Guerra, CMP #### [address] MCH (RBC) [Entitic mass] 33.4 pg Normal 27.5-35.2 [facility] Comment on above: Performed By: #### Yolanda Guerra, CMP #### [address] MCV (RBC) [Entitic vol] 94.3 fL Normal 83.5-101 [facility] Comment on above: Performed By: #### Yolanda Guerra, CMP #### [address] Mean Corpuscular HGB Conc 35.4 g/dL Normal 32.5-35.6 [facility] Comment on above: Performed By: #### Yolanda Guerra, CMP #### [address] Monocytes (Bld) [#/Vol] 0.7 10*3/uL Normal 0.0-0.8 [facility] Comment on above: Performed By: #### Yolanda Guerra, CMP #### [address] Monocytes/100 WBC (Bld) 11.5 % Normal . [facility] Comment on above: Performed By: #### Yolanda Guerra, CMP #### [address] Neutrophils (Bld) [#/Vol] 4.8 10*3/uL Normal 1.8-7.7 [facility] Comment on above: Performed By: #### Yolanda Guerra, CMP #### [address] Neutrophils/100 WBC (Bld) 74.5 % Normal . [facility] Comment on above: Performed By: #### Yolanda Guerra, CMP #### [address] NRBC% 0.1 /100{WBC} Normal 0-0.5 [facility] Comment on above: Performed By: #### Yolanda Guerra, CMP #### [address] Platelet mean volume (Bld) [Entitic vol] 7.1 fL Normal 6.6-10.1 [facility] Comment on above: Performed By: #### Yolanda Guerra, CMP #### [address] Platelets (Bld) [#/Vol] 209 10*3/uL Normal 150-450 [facility] Comment on above: Performed By: #### M Charlie, CMP #### [address] RBC (Bld) [#/Vol] 4.17 10*6/uL Normal 3.90-5.60 [facility] Comment on above: Performed By: #### Yolanda Guerra, CMP #### [address] WBC (Bld) [#/Vol] 6.4 10*3/uL Normal 4.1-10.5 [facility] Comment on above: Performed By: #### Yolanda Guerra, CMP #### [address] Comprehensive Metabolic Pane darren 02-17-2024 Albumin [Mass/Vol] 4.2 g/dL Normal 3.5-5.7 [facility] Comment on above: Performed By: #### Yolanda Guerra, CMP #### [address] Albumin/Globulin [Mass ratio] 1.4 {ratio} Normal [facility] Comment on above: Performed By: #### Yolanda Guerra, CMP #### [address] ALP [Catalytic activity/Vol] 54 U/L Normal 34-104 [facility] Comment on above: Performed By: #### Yolanda Guerra, CMP #### [address] ALT [Catalytic activity/Vol] 30 U/L Normal 7-52 [facility] Comment on above: Performed By: #### Yolanda Guerra, CMP #### [place] [id number] [place] Anion gap [Moles/Vol] 8.5 mmol/L Normal 6.0-15.0 [facility] Comment on above: Performed By: #### Yolanda Guerra, CMP #### [address] AST [Catalytic activity/Vol] 21 U/L Normal 13-39 [facility] Comment on above: Performed By: #### Yolanda Guerra, CMP #### [address] Bilirubin [Mass/Vol] 0.6 mg/dL Normal 0.3-1.0 [facility] Comment on above: Performed By: #### Yolanda Guerra, CMP #### [address] Calcium [Mass/Vol] 9.6 mg/dL Normal 8.6-10.3 [facility] Comment on above: Performed By: #### Yolanda Guerra, CMP #### [address] Chloride [Moles/Vol] 97 mmol/L Low 98-107 [facility] Comment on above: Performed By: #### Yolanda Guerra, CMP #### [address] CO2 [Moles/Vol] 30.2 mmol/L Normal 21.0-31.0 [facility] Comment on above: Performed By: #### Yolanda Guerra, CMP #### [address] Creatinine [Mass/Vol] 1.17 mg/dL Normal 0.70-1.30 [facility] Comment on above: Performed By: #### Yolanda Guerra, CMP #### [facility] [address] [place] [address] [place] Creatinine Clr Calc Pharmacy 84.45 Normal [facility] Comment on above: Performed By: #### Yolanda Guerra, CMP #### [place] [address] [place] GFR/1.73 sq M.predicted MDRD (S/P/Bld) [Vol rate/Area] mL/min/{1.73_m2} Normal [facility] Comment on above: Performed By: #### M G, CMP #### [facility] [address] Globulin (S) [Mass/Vol] 3.1 g/dL Normal T he [facility] Comment on above: Performed By: #### M G, CMP #### [facility] [address] Glucose [Mass/Vol] 119 mg/dL High 70-100 [facility] Comment on above: Result Comment: [place] Glucose Reference Range is dependent on time and content of last meal. Glucose of more than 200 mg/dL in a nonstressed, ambulatory subject supports the diagnosis of Diabetes Mellitus. ADA recommended reference range Performed By: #### M G, CMP #### [facility] [address] Potassium [Moles/Vol] 3.7 mmol/L Normal 3.5-5.1 [facility] Comment on above: Performed By: #### M G, CMP #### [place] [address] [place] Protein [Mass/Vol] 7.3 g/dL Normal 6.4-8.9 [facility] Comment on above: Performed By: #### M G, CMP #### [place] [address] [place] Sodium [Moles/Vol] 132 mmol/L Low 136-145 [facility] Comment on above: Performed By: #### M G, CMP #### [facility] [address] [place] [id number] [place] Urea nitrogen [Mass/Vol] 19 mg/dL Normal 7-25 [facility] Comment on above: Performed By: #### M G, CMP #### [place] [phone] [facility] Magnesiumon 02-17-2024 Magnesium [Mass/Vol] 1.7 mg/dL Low 1.9-2.7 [facility] Comment on above: Result Comment: PERF ORMED BY: [place] [address] PATHOLOGIST TYPEWRITER OPERATOR [employer]OM[employer] CHANDAN WINSTON M.D. Performed By: #### Yolanda Guerra, CMP #### [address] Alanine aminotransferase [En zymatic activity/volume] in Serum or PlasmaOrdered By: Karly Nielsen on 02-09-2024 ALT [Catalytic activity/Vol] 31 U/L Normal 7-52 [facility] Comment on above: Performed By: #### Yolanda Guerra, CMP #### [address] Albumin [Mass/volume] in Ser um or Plasma by Bromocresol green (BCG) dye binding methoOrdered By: Karly Nielsen on 02-09-2024 Albumin BCG dye [Mass/Vol] 4.3 g/dL 3.5-5.7 [facility] Alkaline phosphatase [Enzyma tic activity/volume] in Serum or PlasmaOrdered By: Karly Nielsen on 02-09-2024 ALP [Catalytic activity/Vol] 55 U/L Normal 34-104 [facility] Comment on above: Performed By: #### Yolanda Guerra, CMP #### [address] Aspartate aminotransferase [ Enzymatic activity/volume] in Serum or PlasmaOrdered By: Karly Nielsen on 02-09-2024 AST [Catalytic activity/Vol] 21 U/L Normal 13-39 [facility] Comment on above: Performed By: #### Yolanda Guerra, CMP #### [address] Automated basophil %Ordered By: Karly Nielsen on 02-09-2024 Basophils/100 WBC (Bld) 0.6 % Normal . [facility] Comment on above: Performed By: #### Yolanda Guerra, CMP #### [place] [address] [place] Automated basophil countOrde red By: Karly Nielsen on 02-09-2024 Basophils (Bld) [#/Vol] 0.1 10*3/uL Normal 0.0-0.2 [facility] Comment on above: Result Comment: PERF ORMED BY: [place] [address] PATHOLOGIST TYPEWRITER OPERATOR AUTOMAT[employer] CHANDAN WINSTON M.D. Performed By: #### Yolanda Guerra, CMP #### [address] Automated blood monocyte cou ntOrdered By: Karly Heck-Radha on 02-09-2024 Monocytes (Bld) [#/Vol] 0.9 10*3/uL High 0.0-0.8 [facility] Comment on above: Performed By: #### Yolanda Guerra, CMP #### [address] Automated eosinophil %Ordere d By: Supad Micah-Radha on 02-09-2024 Eosinophils/100 WBC (Bld) 2.1 % Normal . [facility] Comment on above: Performed By: #### Yolanda Guerra, CMP #### [address] Automated eosinophil countOr dered By: Karly Heck-Radha on 02-09-2024 Eosinophils (Bld) [#/Vol] 0.2 10*3/uL Normal 0.0-0.45 [facility] Comment on above: Performed By: #### Yolanda Guerra, CMP #### [address] Automated monocyte %Ordered By: Supad Micah-Radha on 02-09-2024 Monocytes/100 WBC (Bld) 10.3 % Normal . [facility] Comment on above: Performed By: #### Yolanda G, CMP #### [address] Automated neutrophil %Ordere d By: Supad Al-Marraandria on 02-09-2024 Neutrophils/100 WBC (Bld) 77.6 % Normal . [facility] Comment on above: Performed By: #### Yolanda Guerra, CMP #### [facility] [address] Bilirubin.total [Mass/volume ] in Serum or PlasmaOrdered By: Karly Nielsen on 02-09-2024 Bilirubin [Mass/Vol] 0.7 mg/dL Normal 0.3-1.0 [facility] Comment on above: Performed By: #### Yolanda Guerra, CMP #### [facility] [address] [place] [address] [place] Calcium [Mass/volume] in Ser um or PlasmaOrdered By: acosta Nielsen on 02-09-2024 Calcium [Mass/Vol] 9.8 mg/dL Normal 8.6-10.3 [facility] Comment on above: Performed By: #### Yolanda Guerra, CMP #### [address] Carbon dioxide, total [Moles /volume] in Serum or PlasmaOrdered By: acosta Garcia on 02-09-2024 CO2 [Moles/Vol] 30.5 mmol/L Normal 21.0-31.0 [facility] Comment on above: Performed By: #### Yolanda Guerra, CMP #### [facility] [address] [place] [address] [place] Chloride [Moles/volume] in S ray or PlasmaOrdered By: acosta Nielsen on 02-09-2024 Chloride [Moles/Vol] 98 mmol/L Normal 98-107 [facility] Comment on above: Performed By: #### Yolanda Guerra, CMP #### [address] Complete Blood Count Auto Di ffon 02-09-2024 Mean Corpuscular HGB Conc 35.2 g/dL Normal 32.5-35.6 [facility] Comment on above: Performed By: #### Yolanda Guerra, CMP #### [facility] [address] [place] [address] NRBC% 0.1 /100{WBC} Normal 0-0.5 [facility] Comment on above: Performed By: #### Yolanda Guerra, CMP #### [address] Comprehensive Metabolic Pane darren 02-09-2024 Albumin [Mass/Vol] 4.3 g/dL Normal 3.5-5.7 [facility] Comment on above: Performed By: #### Yolanda Guerra, CMP #### [address] Creatinine Clr Calc Pharmacy 105.09 Normal [facility] Comment on above: Performed By: #### Yolanda Guerra, CMP #### [address] GFR/1.73 sq M.predicted MDRD (S/P/Bld) [Vol rate/Area] mL/min/{1.73_m2} Normal [facility] Comment on above: Performed By: #### Yolanda Guerra, CMP #### [address] Creatinine [Mass/volume] in Serum or PlasmaOrdered By: Karly Nielsen on 02-09-2024 Creatinine [Mass/Vol] 0.96 mg/dL Normal 0.70-1.30 [facility] Comment on above: Performed By: #### Yolanda Guerra, CMP #### [address] Erythrocyte distribution wid th [Ratio] by Automated countOrdered By: Karly Garcia on 02-09-2024 Erythrocyte distribution width (RBC) [Ratio] 11.9 % Low 12.0-14.8 [facility] Comment on above: Performed By: #### Yolanda Guerra, CMP #### [address] Erythrocytes [#/volume] in B lood by Automated countOrdered By: Karly Nielsen on 02-09-2024 RBC (Bld) [#/Vol] 4.25 10*6/uL Normal 3.90-5.60 [facility] Comment on above: Performed By: #### Yolanda Guerra, CMP #### [address] Glucose [Mass/volume] in Ser um or PlasmaOrdered By: Karly Nielsen on 02-09-2024 Glucose [Mass/Vol] 104 mg/dL High 70-100 [facility] Comment on above: ADA recommended refe rence rangeRandom Glucose Reference Range is dependent on time and content of last meal. Glucose of more than 200 mg/dL in a nonstressed, ambulatory subject supports the diagnosis of Diabetes Mellitus. Result Comment: [place] om Glucose Reference Range is dependent on time and content of last meal. Glucose of more than 200 mg/dL in a nonstressed, ambulatory subject supports the diagnosis of Diabetes Mellitus. ADA recommended reference range Performed By: #### Yolanda Guerra, CMP #### [facility] [address] [place] [address] Hematocrit [Volume Fraction] of Blood by Automated countOrdered By: Karly Garcia on 02-09-2024 Hematocrit (Bld) [Volume fraction] 40.6 % Normal 38.8-50.0 [facility] Comment on above: Performed By: #### Yolanda Guerra, CMP #### [facility] [address] [place], [place] [phone] [facility] Hemoglobin [Mass/volume] in BloodOrdered By: Karly Nielsen on 02-09-2024 Hemoglobin (Bld) [Mass/Vol] 14.3 g/dL Normal 13.0-17.0 [facility] Comment on above: Performed By: #### Yolanda Guerra, CMP #### [facility] [address] [place], [place] [phone] [place] Leukocytes [#/volume] correc evelyn for nucleated erythrocytes in Blood by Automated counOrdered By: Karly Nielsen on 02-09-2024 WBC corrected for nucl RBC Auto (Bld) [#/Vol] 8.9 10*3/uL 4.1-10.5 [facility] Leukocytes [#/volume] in Blo od by Automated countOrdered By: Karly Nielsen on 02-09-2024 WBC (Bld) [#/Vol] 8.9 10*3/uL Normal 4.1-10.5 [facility] Comment on above: Performed By: #### Yolanda Guerra, CMP #### [address] Lymphocytes [#/volume] in Bl ood by Automated countOrdered By: Karly Nielsen on 02-09-2024 Lymphocytes (Bld) [#/Vol] 0.8 10*3/uL Low 1.00-4.8 [facility] Comment on above: Performed By: #### Yolanda Guerra, CMP #### [address] Lymphocytes/100 leukocytes i n Blood by Automated countOrdered By: Karly Nielsen on 02-09-2024 Lymphocytes/100 WBC (Bld) 9.4 % Normal . [facility] Comment on above: Performed By: #### Yolanda Guerra, CMP #### [address] MCH [Entitic mass] by Automa evelyn countOrdered By: Karly Nielsen on 02-09-2024 MCH (RBC) [Entitic mass] 33.6 pg Normal 27.5-35.2 [facility] Comment on above: Performed By: #### Yolanda Guerra, CMP #### [address] MCHC Auto (RBC) [Mass/Vol]Or dered By: Karly Nielsen on 02-09-2024 MCHC (RBC) [Mass/Vol] 35.2 g/dL 32.5-35.6 [facility] MCV [Entitic volume] by Auto mated countOrdered By: Karly Nielsen on 02-09-2024 MCV (RBC) [Entitic vol] 95.6 fL Normal 83.5-101 [facility] Comment on above: Performed By: #### Yolanda Guerra, CMP #### [address] Magnesium [Mass/volume] in S ray or PlasmaOrdered By: Karly Nielsen on 02-09-2024 Magnesium [Mass/Vol] 1.9 mg/dL Normal 1.9-2.7 [facility] Comment on above: Result Comment: PERF ORMED BY: [place] [address] PATHOLOGIST TYPEWRITER OPERATOR AUTOMATIC CHANDAN WINSTON M.D. Performed By: #### Yolanda Guerra, CMP #### [address] Neutrophils [#/volume] in Bl ood by Automated countOrdered By: Karly Nielsen on 02-09-2024 Neutrophils (Bld) [#/Vol] 6.9 10*3/uL Normal 1.8-7.7 [facility] Comment on above: Performed By: #### Yolanda Guerra, CMP #### [facility] [address] [place] [address] No Panel InformationOrdered By: Karly Nielsen on 02-09-2024 Estimated GFR (CKD-EPI) > 60.0 mL/Min [facility] Creatinine Clearance (Chem 105.09 [facility] Nucleated erythrocytes [Pres ence] in Blood by Automated countOrdered By: Karly Nielsen on 02-09-2024 Nucleated RBC Auto Ql (Bld) 0.1 /100{WBC} 0-0.5 [facility] PSA Total (Not a Screen)on 0 02-09-2024 PSA Total (Not a Screen) 0.750 ng/mL Normal 0.000-4.000 [facility] Comment on above: Result Comment: Seri al tumor marker results determined by assays using different manufacturers or methods may not be comparable. [facility] signal integrity engineer and method: [employer], CHEMILUMINESCENT IMMUNOASSAY. PERFORMED BY: [place] [address] PATHOLOGIST TYPEWRITER OPERATOR AUTOMATIC CHANDAN WINSTON M.D. Performed By: #### Yolanda Guerra, CMP #### [facility] [address] [place], [place] [phone] [facility] Platelet mean volume [Entiti c volume] in Blood by Automated countOrdered By: Karly Nielsen on 02-09-2024 Platelet mean volume (Bld) [Entitic vol] 7.5 fL Normal 6.6-10.1 [facility] Comment on above: Performed By: #### Yolanda Guerra, CMP #### [address] Platelets [#/volume] in Bloo d by Automated countOrdered By: Karly Nielsen on 02-09-2024 Platelets (Bld) [#/Vol] 246 10*3/uL Normal 150-450 [facility] Comment on above: Performed By: #### Yolanda Guerra, CMP #### [address] Potassium [Moles/volume] in Serum or PlasmaOrdered By: Karly Nielsen on 02-09-2024 Potassium [Moles/Vol] 4.2 mmol/L Normal 3.5-5.1 [facility] Comment on above: Performed By: #### Yolanda Guerra, CMP #### [address] Prostate specific Ag [Mass/v olume] in Serum or PlasmaOrdered By: Abner Monique on 02-09-2024 Prostate specific Ag [Mass/Vol] 0.750 ng/mL 0.000-4.000 [facility] Comment on above: Serial tumor marker results determined by assays using different manufacturers or methods may not be comparable.[facility] signal integrity engineer and method:[employer]XI, CHEMILUMINESCENT IMMUNOASSAY. Protein [Mass/volume] in Ser um or PlasmaOrdered By: Karly Nielsen on 02-09-2024 Protein [Mass/Vol] 7.4 g/dL Normal 6.4-8.9 [facility] Comment on above: Performed By: #### Yolanda Guerra, CMP #### [address] Serum globulin measurement b y calculation (mass/volume)Ordered By: Karly Garcia on 02-09-2024 Globulin (S) [Mass/Vol] 3.1 g/dL Normal F [facility] Comment on above: Performed By: #### Yolanda Guerra, CMP #### [address] Serum or plasma albumin/glob ulin mass ratioOrdered By: Karly Nielsen on 02-09-2024 Albumin/Globulin [Mass ratio] 1.4 {ratio} Normal [facility] Comment on above: Performed By: #### Yolanda Guerra, CMP #### [address] Serum or plasma anion gap de terminationOrdered By: Karly Nielsen on 02-09-2024 Anion gap [Moles/Vol] 8.7 mmol/L Normal 6.0-15.0 [facility] Comment on above: Performed By: #### Yolanda Guerra, CMP #### [place] [address] [place] Sodium [Moles/volume] in Ser um or PlasmaOrdered By: Karly Nielsen on 02-09-2024 Sodium [Moles/Vol] 133 mmol/L Low 136-145 [facility] Comment on above: Performed By: #### Yolanda Guerra, CMP #### [place] [address] [place] Urea nitrogen [Mass/volume] in Serum or PlasmaOrdered By: acosta Nielsen on 02-09-2024 Urea nitrogen [Mass/Vol] 19 mg/dL Normal 7-25 [facility] Comment on above: Performed By: #### Yolanda Guerra, CMP #### [place] [address] [place] Alanine aminotransferase [En zymatic activity/volume] in Serum or PlasmaOrdered By: Karly Nielsen on 02-02-2024 ALT [Catalytic activity/Vol] 33 U/L Normal -52 [facility] Comment on above: Performed By: #### Yolanda Guerra, CMP #### [place] [address] [place] Albumin [Mass/volume] in Ser um or Plasma by Bromocresol green (BCG) dye binding methoOrdered By: Karly Nielsen on 02-02-2024 Albumin BCG dye [Mass/Vol] 4.4 g/dL 3.5-5.7 [facility] Alkaline phosphatase [Enzyma tic activity/volume] in Serum or PlasmaOrdered By: acosta RiveraTamannamicheal on 02-02-2024 ALP [Catalytic activity/Vol] 56 U/L Normal 34-104 [facility] Comment on above: Performed By: #### M Charlie, CMP #### [address] Aspartate aminotransferase [ Enzymatic activity/volume] in Serum or PlasmaOrdered By: acosta Nielsen on 02-02-2024 AST [Catalytic activity/Vol] 23 U/L Normal 13-39 [facility] Comment on above: Performed By: #### M G, CMP #### [address] Automated basophil %Ordered By: acosta Nielsen on 02-02-2024 Basophils/100 WBC (Bld) 0.6 % Normal . [facility] Comment on above: Performed By: #### Yolanda Guerra, CMP #### [address] Automated basophil countOrde red By: acosta Nielsen on 02-02-2024 Basophils (Bld) [#/Vol] 0.1 10*3/uL Normal 0.0-0.2 [facility] Comment on above: Result Comment: PERF ORMED BY: [place] [address] PATHOLOGIST TYPEWRITER OPERATOR AUTOMATIC CHANDAN WINSTON M.D. Performed By: #### Yolanda Guerra, CMP #### [address] Automated blood monocyte cou ntOrdered By: acosta Nielsen on 02-02-2024 Monocytes (Bld) [#/Vol] 1.0 10*3/uL High 0.0-0.8 [facility] Comment on above: Performed By: #### Yolanda Guerra, CMP #### [address] Automated eosinophil %Ordere d By: acosta Nielsen on 02-02-2024 Eosinophils/100 WBC (Bld) 2.1 % Normal . [facility] Comment on above: Performed By: #### M G, CMP #### [address] Automated eosinophil countOr dered By: Karly Nielsen on 02-02-2024 Eosinophils (Bld) [#/Vol] 0.2 10*3/uL Normal 0.0-0.45 [facility] Comment on above: Performed By: #### M G, CMP #### [address] Automated monocyte %Ordered By: Karly Nielsen on 02-02-2024 Monocytes/100 WBC (Bld) 11.4 % Normal . [facility] Comment on above: Performed By: #### M G, CMP #### [address] Automated neutrophil %Ordere d By: Karly Nielsen on 02-02-2024 Neutrophils/100 WBC (Bld) 67.7 % Normal . [facility] Comment on above: Performed By: #### M Charlie, CMP #### [address] Bilirubin.total [Mass/volume ] in Serum or PlasmaOrdered By: Karly Nielsen on 02-02-2024 Bilirubin [Mass/Vol] 1.0 mg/dL Normal 0.3-1.0 [facility] Comment on above: Performed By: #### Yolanda Guerra, CMP #### [address] Calcium [Mass/volume] in Ser um or PlasmaOrdered By: acosta Nielsen on 02-02-2024 Calcium [Mass/Vol] 9.6 mg/dL Normal 8.6-10.3 [facility] Comment on above: Performed By: #### M G, CMP #### [address] Carbon dioxide, total [Moles /volume] in Serum or PlasmaOrdered By: Karly Garcia on 02-02-2024 CO2 [Moles/Vol] 29.9 mmol/L Normal 21.0-31.0 [facility] Comment on above: Performed By: #### Yolanda Guerra, CMP #### [address] Chloride [Moles/volume] in S ray or PlasmaOrdered By: Karly Nielsen on 02-02-2024 Chloride [Moles/Vol] 100 mmol/L Normal 98-107 [facility] Comment on above: Performed By: #### M Charlie, CMP #### [address] Complete Blood Count Auto Di ffon 02-02-2024 Mean Corpuscular HGB Conc 35.6 g/dL Normal 32.5-35.6 [facility] Comment on above: Performed By: #### Yolanda Guerra, CMP #### [address] NRBC% 0.1 /100{WBC} Normal 0-0.5 [facility] Comment on above: Performed By: #### Yolanda G, CMP #### [address] Comprehensive Metabolic Pane darren 02-02-2024 Albumin [Mass/Vol] 4.4 g/dL Normal 3.5-5.7 [facility] Comment on above: Performed By: #### Yolanda Guerra, CMP #### [place] [address] [place] Creatinine Clr Calc Pharmacy 106.54 Normal [facility] Comment on above: Performed By: #### Yolanda G, CMP #### [place] [address] [place] GFR/1.73 sq M.predicted MDRD (S/P/Bld) [Vol rate/Area] mL/min/{1.73_m2} Normal [facility] Comment on above: Performed By: #### Yolanda G, CMP #### [place] [address] [place] Creatinine [Mass/volume] in Serum or PlasmaOrdered By: Karly Nielsen on 02-02-2024 Creatinine [Mass/Vol] 0.96 mg/dL Normal 0.70-1.30 [facility] Comment on above: Performed By: #### Yolanda Guerra, CMP #### [facility] [address] Erythrocyte distribution wid th [Ratio] by Automated countOrdered By: acosta Garcia on 02-02-2024 Erythrocyte distribution width (RBC) [Ratio] 12.2 % Normal 12.0-14.8 [facility] Comment on above: Performed By: #### Yolanda Guerra, CMP #### [facility] [address] [place] [address] Erythrocytes [#/volume] in B lood by Automated countOrdered By: Karly Nielsen on 02-02-2024 RBC (Bld) [#/Vol] 4.49 10*6/uL Normal 3.90-5.60 [facility] Comment on above: Performed By: #### Yolanda Guerra, CMP #### [address] Glucose [Mass/volume] in Ser um or PlasmaOrdered By: Karly Nielsen on 02-02-2024 Glucose [Mass/Vol] 118 mg/dL High 70-100 [facility] Comment on above: ADA recommended refe rence rangeRandom Glucose Reference Range is dependent on time and content of last meal. Glucose of more than 200 mg/dL in a nonstressed, ambulatory subject supports the diagnosis of Diabetes Mellitus. Result Comment: [place] om Glucose Reference Range is dependent on time and content of last meal. Glucose of more than 200 mg/dL in a nonstressed, ambulatory subject supports the diagnosis of Diabetes Mellitus. ADA recommended reference range Performed By: #### Yolanda Guerra, CMP #### [facility] [address] [place] [address] Hematocrit [Volume Fraction] of Blood by Automated countOrdered By: Karly Garcia on 02-02-2024 Hematocrit (Bld) [Volume fraction] 42.7 % Normal 38.8-50.0 [facility] Comment on above: Performed By: #### Yolanda Guerra, CMP #### [address] Hemoglobin [Mass/volume] in BloodOrdered By: Karly Nielsen on 02-02-2024 Hemoglobin (Bld) [Mass/Vol] 15.2 g/dL Normal 13.0-17.0 [facility] Comment on above: Performed By: #### Yolanda Guerra, CMP #### [address] Leukocytes [#/volume] correc evelyn for nucleated erythrocytes in Blood by Automated counOrdered By: Karly Nielsen on 02-02-2024 WBC corrected for nucl RBC Auto (Bld) [#/Vol] 9.1 10*3/uL 4.1-10.5 [facility] Leukocytes [#/volume] in Blo od by Automated countOrdered By: Karly Nielsen on 02-02-2024 WBC (Bld) [#/Vol] 9.1 10*3/uL Normal 4.1-10.5 [facility] Comment on above: Performed By: #### Yolanda Guerra, CMP #### [place] [address] [place] Lymphocytes [#/volume] in Bl ood by Automated countOrdered By: acosta Nielsen on 02-02-2024 Lymphocytes (Bld) [#/Vol] 1.7 10*3/uL Normal 1.00-4.8 [facility] Comment on above: Performed By: #### Yolanda Guerra, CMP #### [place] [address] [place] Lymphocytes/100 leukocytes i n Blood by Automated countOrdered By: Karly Nielsen on 02-02-2024 Lymphocytes/100 WBC (Bld) 18.2 % Normal . [facility] Comment on above: Performed By: #### Yolanda Guerra, CMP #### [facility] [address] [place] [address] [place] MCH [Entitic mass] by Automa evelyn countOrdered By: Karly Nielsen on 02-02-2024 MCH (RBC) [Entitic mass] 33.9 pg Normal 27.5-35.2 [facility] Comment on above: Performed By: #### M Charlie, CMP #### [facility] [address] [place] [address] MCHC Auto (RBC) [Mass/Vol]Or dered By: Karly Nielsen on 02-02-2024 MCHC (RBC) [Mass/Vol] 35.6 g/dL 32.5-35.6 [facility] MCV [Entitic volume] by Auto mated countOrdered By: Karly Nielsen on 02-02-2024 MCV (RBC) [Entitic vol] 95.1 fL Normal 83.5-101 [facility] Comment on above: Performed By: #### M Charlie, CMP #### [facility] [address] [place] [address] Magnesium [Mass/volume] in S ray or PlasmaOrdered By: Karly Nielsen on 02-02-2024 Magnesium [Mass/Vol] 2.0 mg/dL Normal 1.9-2.7 [facility] Comment on above: Result Comment: PERF ORMED BY: [place] [address] PATHOLOGIST TYPEWRITER OPERATOR AUTOMATIC CHANDAN WINSTON M.D. Performed By: #### M Charlie, CMP #### [facility] [address] [place] [address] Neutrophils [#/volume] in Bl ood by Automated countOrdered By: Karly Nielsen on 02-02-2024 Neutrophils (Bld) [#/Vol] 6.2 10*3/uL Normal 1.8-7.7 [facility] Comment on above: Performed By: #### M Chalrie, CMP #### [facility] [address] [place] [address] No Panel InformationOrdered By: Karly Nielsen on 02-02-2024 Estimated GFR (CKD-EPI) > 60.0 mL/Min [facility] Creatinine Clearance (Chem 106.54 [facility] Nucleated erythrocytes [Pres ence] in Blood by Automated countOrdered By: Karly Nielsen on 02-02-2024 Nucleated RBC Auto Ql (Bld) 0.1 /100{WBC} 0-0.5 [facility] Platelet mean volume [Entiti c volume] in Blood by Automated countOrdered By: Karly Nielsen on 02-02-2024 Platelet mean volume (Bld) [Entitic vol] 7.9 fL Normal 6.6-10.1 [facility] Comment on above: Performed By: #### Yolanda Guerra, CMP #### [facility] [address] [place] [address] [place] Platelets [#/volume] in Bloo d by Automated countOrdered By: Karly Nielsen on 02-02-2024 Platelets (Bld) [#/Vol] 250 10*3/uL Normal 150-450 [facility] Comment on above: Performed By: #### Yolanda Guerra, CMP #### [facility] [address] [place] [address] [place] Potassium [Moles/volume] in Serum or PlasmaOrdered By: acosta Nielsen on 02-02-2024 Potassium [Moles/Vol] 3.9 mmol/L Normal 3.5-5.1 [facility] Comment on above: Performed By: #### Yolanda Guerra, CMP #### [facility] [address] [place] [address] [place] Protein [Mass/volume] in Ser um or PlasmaOrdered By: Karly Nielsen on 02-02-2024 Protein [Mass/Vol] 7.6 g/dL Normal 6.4-8.9 [facility] Comment on above: Performed By: #### Yolanda Guerra, CMP #### [facility] [address] [place] [address] [place] Serum globulin measurement b y calculation (mass/volume)Ordered By: Karly Garcia on 02-02-2024 Globulin (S) [Mass/Vol] 3.2 g/dL Normal [facility] Comment on above: Performed By: #### Yolanda Guerra, CMP #### [facility] [address] [place] [address] Serum or plasma albumin/glob ulin mass ratioOrdered By: Karly Nielsen on 02-02-2024 Albumin/Globulin [Mass ratio] 1.4 {ratio} [facility] Comment on above: Performed By: #### Yolanda Guerra, CMP #### [address] Serum or plasma anion gap de terminationOrdered By: Karly Heck-Radha on 02-02-2024 Anion gap [Moles/Vol] 9.0 mmol/L Normal 6.0-15.0 [facility] Comment on above: Performed By: #### Yolanda Guerra, CMP #### [address] Sodium [Moles/volume] in Ser um or PlasmaOrdered By: acosta Nielsen on 02-02-2024 Sodium [Moles/Vol] 135 mmol/L Low 136-145 [facility] Comment on above: Performed By: #### Yolanda Guerra, CMP #### [place] [address] [place] Urea nitrogen [Mass/volume] in Serum or PlasmaOrdered By: acosta Nielsen on 02-02-2024 Urea nitrogen [Mass/Vol] 16 mg/dL Normal 7-25 [facility] Comment on above: Performed By: #### Yolanda Guerra, CMP #### [place] [address] [place] Alanine aminotransferase [En zymatic activity/volume] in Serum or PlasmaOrdered By: Karly Heck-Radha on 01-20-2024 ALT [Catalytic activity/Vol] 22 U/L Normal 7-52 [facility] Comment on above: Performed By: #### Yolanda Guerra, CMP #### [place] [address] [place] Albumin [Mass/volume] in Ser um or Plasma by Bromocresol green (BCG) dye binding methoOrdered By: Karly Nielsen on 01-20-2024 Albumin BCG dye [Mass/Vol] 3.9 g/dL 3.5-5.7 [facility] Alkaline phosphatase [Enzyma tic activity/volume] in Serum or PlasmaOrdered By: Karly Nielsen on 01-20-2024 ALP [Catalytic activity/Vol] 54 U/L Normal 34-104 [facility] Comment on above: Performed By: #### M G, CMP #### [address] Aspartate aminotransferase [ Enzymatic activity/volume] in Serum or PlasmaOrdered By: Karly Nielsen on 01-20-2024 AST [Catalytic activity/Vol] 21 U/L Normal 13-39 [facility] Comment on above: Performed By: #### M G, CMP #### [address] Automated basophil %Ordered By: Karly Nielsen on 01-20-2024 Basophils/100 WBC (Bld) 1.1 % Normal . [facility] Comment on above: Performed By: #### C BC #### [address] Automated basophil countOrde red By: Karly Nielsen on 01-20-2024 Basophils (Bld) [#/Vol] 0.1 10*3/uL Normal 0.0-0.2 [facility] Comment on above: Result Comment: PERF ORMED BY: [place] [address] PATHOLOGIST TYPEWRITER OPERATOR [employer]OM[employer] CHANDAN WINSTON M.D. Performed By: #### C BC #### [address] Automated blood monocyte cou ntOrdered By: Karly Nielsen on 01-20-2024 Monocytes (Bld) [#/Vol] 0.7 10*3/uL Normal 0.0-0.8 [facility] Comment on above: Performed By: #### C BC #### [address] Automated eosinophil %Ordere d By: Karly Nielsen on 01-20-2024 Eosinophils/100 WBC (Bld) 6.2 % Normal . [facility] Comment on above: Performed By: #### C BC #### [address] Automated eosinophil countOr dered By: Karly Heck-Radha on 01-20-2024 Eosinophils (Bld) [#/Vol] 0.3 10*3/uL Normal 0.0-0.45 [facility] Comment on above: Performed By: #### C BC #### [address] Automated monocyte %Ordered By: acosta Heck-Marmicheal on 01-20-2024 Monocytes/100 WBC (Bld) 12.2 % Normal . [facility] Comment on above: Performed By: #### C BC #### [address] Automated neutrophil %Ordere d By: acosta Heck-Radha on 01-20-2024 Neutrophils/100 WBC (Bld) 51.4 % Normal . [facility] Comment on above: Performed By: #### C BC #### [address] Bilirubin.total [Mass/volume ] in Serum or PlasmaOrdered By: Karly Heck-Radha on 01-20-2024 Bilirubin [Mass/Vol] 0.5 mg/dL Normal 0.3-1.0 [facility] Comment on above: Performed By: #### M G, CMP #### [place] [address] [place] Calcium [Mass/volume] in Ser um or PlasmaOrdered By: acosta Heck-Marmicheal on 01-20-2024 Calcium [Mass/Vol] 8.9 mg/dL Normal 8.6-10.3 [facility] Comment on above: Performed By: #### M G, CMP #### [place] [address] [place] Carbon dioxide, total [Moles /volume] in Serum or PlasmaOrdered By: Karly Garcia on 01-20-2024 CO2 [Moles/Vol] 27.1 mmol/L Normal 21.0-31.0 [facility] Comment on above: Performed By: #### M Charlie, CMP #### [address] Chloride [Moles/volume] in S ray or PlasmaOrdered By: Karly Nielsen on 01-20-2024 Chloride [Moles/Vol] 106 mmol/L Normal 98-107 [facility] Comment on above: Performed By: #### M G, CMP #### [address] Complete Blood Count Auto Di ffon 01-20-2024 Mean Corpuscular HGB Conc 34.6 g/dL Normal 32.5-35.6 [facility] Comment on above: Performed By: #### C BC #### [address] NRBC% 0.1 /100{WBC} Normal 0-0.5 [facility] Comment on above: Performed By: #### C BC #### [address] Comprehensive Metabolic Pane darren 01-20-2024 Albumin [Mass/Vol] 3.9 g/dL Normal 3.5-5.7 [facility] Comment on above: Performed By: #### M Charlie, CMP #### [place] [address] [place] Creatinine Clr Calc Pharmacy 96.96 Normal [facility] Comment on above: Performed By: #### M G, CMP #### [place] [address] [place] GFR/1.73 sq M.predicted MDRD (S/P/Bld) [Vol rate/Area] mL/min/{1.73_m2} Normal [facility] Comment on above: Performed By: #### M G, CMP #### [place] [address] [place] Creatinine [Mass/volume] in Serum or PlasmaOrdered By: Karly Nielsen on 01-20-2024 Creatinine [Mass/Vol] 1.06 mg/dL Normal 0.70-1.30 [facility] Comment on above: Performed By: #### M G, CMP #### [address] Erythrocyte distribution wid th [Ratio] by Automated countOrdered By: acosta Garcia on 01-20-2024 Erythrocyte distribution width (RBC) [Ratio] 12.2 % Normal 12.0-14.8 [facility] Comment on above: Performed By: #### C BC #### [address] Erythrocytes [#/volume] in B lood by Automated countOrdered By: Karly Nielsen on 01-20-2024 RBC (Bld) [#/Vol] 4.09 10*6/uL Normal 3.90-5.60 [facility] Comment on above: Performed By: #### C BC #### [address] Glucose [Mass/volume] in Ser um or PlasmaOrdered By: Karly Nielsen on 01-20-2024 Glucose [Mass/Vol] 131 mg/dL High 70-100 [facility] Comment on above: ADA recommended refe rence rangeRandom Glucose Reference Range is dependent on time and content of last meal. Glucose of more than 200 mg/dL in a nonstressed, ambulatory subject supports the diagnosis of Diabetes Mellitus. Result Comment: [place] om Glucose Reference Range is dependent on time and content of last meal. Glucose of more than 200 mg/dL in a nonstressed, ambulatory subject supports the diagnosis of Diabetes Mellitus. ADA recommended reference range Performed By: #### M G, CMP #### [address] Hematocrit [Volume Fraction] of Blood by Automated countOrdered By: Karly Garcia on 01-20-2024 Hematocrit (Bld) [Volume fraction] 39.5 % Normal 38.8-50.0 [facility] Comment on above: Performed By: #### C BC #### [facility] [address] Hemoglobin [Mass/volume] in BloodOrdered By: Supad Micah-Radha on 01-20-2024 Hemoglobin (Bld) [Mass/Vol] 13.7 g/dL Normal 13.0-17.0 [facility] Comment on above: Performed By: #### C BC #### [facility] [address] Leukocytes [#/volume] correc evelyn for nucleated erythrocytes in Blood by Automated counOrdered By: d Micah-Radha on 01-20-2024 WBC corrected for nucl RBC Auto (Bld) [#/Vol] 5.4 10*3/uL 4.1-10.5 [facility] Leukocytes [#/volume] in Blo od by Automated countOrdered By: acosta Heck-Radha on 01-20-2024 WBC (Bld) [#/Vol] 5.4 10*3/uL Normal 4.1-10.5 [facility] Comment on above: Performed By: #### C BC #### [place] [address] [place] Lymphocytes [#/volume] in Bl ood by Automated countOrdered By: acosta Heck-Radha on 01-20-2024 Lymphocytes (Bld) [#/Vol] 1.6 10*3/uL Normal 1.00-4.8 [facility] Comment on above: Performed By: #### C BC #### [place] [address] [place] Lymphocytes/100 leukocytes i n Blood by Automated countOrdered By: d Micah-Radha on 01-20-2024 Lymphocytes/100 WBC (Bld) 29.1 % Normal . [facility] Comment on above: Performed By: #### C BC #### [place] [address] [place] MCH [Entitic mass] by Automa evelyn countOrdered By: d Micah-Marmicheal on 01-20-2024 MCH (RBC) [Entitic mass] 33.4 pg Normal 27.5-35.2 [facility] Comment on above: Performed By: #### C BC #### [address] MCHC Auto (RBC) [Mass/Vol]Or dered By: Karly Nielsen on 01-20-2024 MCHC (RBC) [Mass/Vol] 34.6 g/dL 32.5-35.6 [facility] MCV [Entitic volume] by Auto mated countOrdered By: Karly Nielsen on 01-20-2024 MCV (RBC) [Entitic vol] 96.6 fL Normal 83.5-101 F [facility] Comment on above: Performed By: #### C BC #### [address] Magnesium [Mass/volume] in S ray or PlasmaOrdered By: Karly Nielsen on 01-20-2024 Magnesium [Mass/Vol] 2.2 mg/dL Normal 1.9-2.7 [facility] Comment on above: Result Comment: PERF ORMED BY: [place] [address] PATHOLOGIST TYPEWRITER OPERATOR [employer]OM[employer] CHANDAN WINSTON M.D. Performed By: #### M G, CMP #### [facility] [address] [place] [address] Neutrophils [#/volume] in Bl ood by Automated countOrdered By: Karly Nielsen on 01-20-2024 Neutrophils (Bld) [#/Vol] 2.8 10*3/uL Normal 1.8-7.7 [facility] Comment on above: Performed By: #### C BC #### [address] No Panel InformationOrdered By: Karly Nielsen on 01-20-2024 Estimated GFR (CKD-EPI) > 60.0 mL/Min [facility] Creatinine Clearance (Chem 96.96 [facility] Nucleated erythrocytes [Pres ence] in Blood by Automated countOrdered By: Karly Nielsen on 01-20-2024 Nucleated RBC Auto Ql (Bld) 0.1 /100{WBC} 0-0.5 [facility] Platelet mean volume [Entiti c volume] in Blood by Automated countOrdered By: Karly Nielsen on 01-20-2024 Platelet mean volume (Bld) [Entitic vol] 7.7 fL Normal 6.6-10.1 [facility] Comment on above: Performed By: #### C BC #### [address] Platelets [#/volume] in Bloo d by Automated countOrdered By: Karly Nielsen on 01-20-2024 Platelets (Bld) [#/Vol] 206 10*3/uL Normal 150-450 [facility] Comment on above: Performed By: #### C BC #### [address] Potassium [Moles/volume] in Serum or PlasmaOrdered By: Karly Nielsen on 01-20-2024 Potassium [Moles/Vol] 4.5 mmol/L Normal 3.5-5.1 [facility] Comment on above: Performed By: #### M Charlie, CMP #### [address] Protein [Mass/volume] in Ser um or PlasmaOrdered By: Karly Nielsen on 01-20-2024 Protein [Mass/Vol] 6.8 g/dL Normal 6.4-8.9 [facility] Comment on above: Performed By: #### M Charlie, CMP #### [address] Serum globulin measurement b y calculation (mass/volume)Ordered By: Karly Garcia on 01-20-2024 Globulin (S) [Mass/Vol] 2.9 g/dL Normal [facility] Comment on above: Performed By: #### M Charlie, CMP #### [address] Serum or plasma albumin/glob ulin mass ratioOrdered By: acosta Nielsen on 01-20-2024 Albumin/Globulin [Mass ratio] 1.3 {ratio} Normal [facility] Comment on above: Performed By: #### Yolanda Guerra, CMP #### [facility] [address] [place] [address] Serum or plasma anion gap de terminationOrdered By: Karly Nielsen on 01-20-2024 Anion gap [Moles/Vol] 8.4 mmol/L Normal 6.0-15.0 [facility] Comment on above: Performed By: #### Yolanda Guerra, CMP #### [facility] [address] [place] [address] Sodium [Moles/volume] in Ser um or PlasmaOrdered By: Karly Nielsen on 01-20-2024 Sodium [Moles/Vol] 137 mmol/L Normal 136-145 [facility] Comment on above: Performed By: #### Yolanda Guerra, CMP #### [facility] [address] [place] [address] Urea nitrogen [Mass/volume] in Serum or PlasmaOrdered By: acosta Nielsen on 01-20-2024 Urea nitrogen [Mass/Vol] 18 mg/dL Normal 7-25 [facility] Comment on above: Performed By: #### Yolanda Guerra, CMP #### [facility] [address] [place] [address] [place] XR chest 1V portableon 01-19 XR chest 1V portable [facility] [place] [address] [place] [address] XRay Report Signed Patient: Alen Calderon MR#: [id number] : 1965 Acct:[id number] Age/Sex: 58 / M ADM Date: 01/20/24 Loc: [place] Room: Type: [facility] Attending Dr: Nohemi Vizcaino DO Copies to: Nohemi Vizcaino DO Ordering Provider: Nohemi Vizcaino DO Date of Service: 01/20/24 XR/XR chest 1V portable: POST PORT Plain film chest Single view HISTORY: [id number] insertion COMPARISON: None FINDINGS: SUPPORT DEVICES: None POSTSURGICAL CHANGES: Tip of the [id number] overlies the distal SVC HEART: Within normal limits PULMONARY DIONNA: Within normal limits MEDIASTINUM: Unremarkable LUNGS AND PLEURA: Mild basilar atelectasis. Minimal blunting of the left costophrenic angle. No pneumothorax. BONY STRUCTURES: Intact ADDITIONAL FINDINGS None XR/XR chest 1V portable IMPRESSION: No postprocedure pneumothorax. Mild atelectasis. Impression dictated by: Ishaan Hanley M.D.01/20/2024 8:26 AM Dictation Location: [place] [address] Transcribed By: [facility] 01/20/24825 Dictated By: Ishaan Hanley DO 01/20/24824 Signed By: 01/20/24825 Normal [facility] echo transthoracicon [facility] echo transthoracic [facility] Main [place] [address] [place] [address] Echocardiogram Signed Patient: Alen Calderon MR#: [id number] : 1965 Acct:[id number] Age/Sex: 58 / M ADM Date: 01/14/24 Loc: Room: Type: [facility] Attending Dr: Karly Nielsen MD Ordering Provider: Karly Nielsen MD Date of Service: 01/14/24 [facility] echo transthoracic: 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, unspecified Copies to: MD Abraham Radford MD Weight: 250 lb Performed By: Sola Rhodes [facility] BSA: 2.3 m2 Reason For Study: [...] % Avg (): -19.5 % Transcribed By: YOANNAV Performed At: 01/14/24 0853 Signed By: Abraham Sin MD 01/14/24 1230 Normal [facility] Darren 12-25-2023 L Specimen: [id number] Received: 12/25/23 Status: ELGIN Martinez Num: [id number] Spec Type: Surgical Subm Dr: Charly Nowak DO Tissues: A TONSIL - biopsy (RT TONSIL BX) Procedures: HE/5, Gross/Micro L4, CINtec p16, p40, FS HE/2, DIFF QWIK Age/ Patient Sex Location Account Attending Physician Alen Calderon 58/M [place] [id number] Charly Nowak DO SPEC NUM: [id number] RECD: 12/25/23 STATUS: ELGIN MARTINEZ NUM: [id number] LILI: 12/25/23-[address] [facility] [address]: Charly Nowak DO ENTERED: 12/25/[address] [facility] [address]: SPEC TYPE: Surgical DEPT: S ORDERED: [...] touch prep slides are performed. -------- Specimen: [id number] Received: 12/25/23 Status: ELGIN Martinez Num: [id number] Spec Type: Surgical Subm Dr: Charly Nowak DO Tissues: A TONSIL - biopsy (RT TONSIL BX) Procedures: HE/5, Gross/Micro L4, CINtec p16, p40, FS HE/2, DIFF QWIK -------- Patient: Alen Calderon [id number] (Continued) -------- Specimen: [id number] Received: 12/25/23 (Continued) Signed (signature on file) Melinda Iyer MD 12/29/231918 -------- Specimen: [id number] Received: 12/25/23 Status: ELGIN Martinez Num: [id number] Spec Type: Surgical Subm Dr: Charly Nowak DO Tissues: A TONSIL - biopsy (RT TONSIL BX) Procedures: HE/5, Gross/Micro L4, CINtec p16, p40, FS HE/2, DIFF QWIK -------- Patient: Alen Calderon [id number] (Continued) -------- Specimen: [id number] Received: 12/25/23 (Continued) Intraoperative Diagnosis FX Dx: Squamous cell carcinoma Frozen section read by: Dr. Iyer. 12/25/2023 at 1115 CPT Codes 90279 46013 70140 [id number] 15305 -------- -------- Specimen: [id number] Received: 12/25/23 Status: ELGIN Martinez Num: [id number] Spec Type: Surgical Subm Dr: Charly Nowak DO Tissues: A TONSIL - biopsy (RT TONSIL BX) Procedures: HE/5, Gross/Micro L4, CINtec p16, p40, FS HE/2, DIFF QWIK -------- Patient: Alen Calderon [id number] (Continued) -------- Signed (signature on file) Melinda Iyer MD 12/29/231918 Normal [facility] L Specimen: [id number] Received: 12/25/23 Status: ELGIN Martinez Num: [id number] Spec Type: Cytology Subm Dr: Charly Nowak DO Tissues: A FNA SLIDES PATH (RT NECK MASS) Procedures: HE/2, -, PAPSTN/16 Age/ Patient Sex Location Account Attending Physician Alen Calderon 58/M [place] [id number] Charly Nowak DO SPEC NUM: [id number] RECD: 12/25/23 STATUS: ELGIN MARTINEZ NUM: [id number] LILI: 12/25/23-[address] [facility] [address]: Charly Nowak DO ENTERED: 12/25/[address] [facility] [address]: SPEC TYPE: Cytology DEPT: CNG ENTERED BY: [id number] RECV BY: [id number] ORDERED: HE/2, -, PAPSTN/16 ORDERED: HE/2, -, PAPSTN/16 Pathological Diagnosis Right neck mass, [...] -------- Specimen: [id number] Received: 12/25/23 Status: ELGIN [place] Num: [id number] Spec Type: Cytology Subm Dr: Charly Nowak DO Tissues: A FNA SLIDES PATH (RT NECK MASS) Procedures: HE/2, -, PAPSTN/16 -------- Patient: LemuelmervinAlen [id number] (Continued) -------- Specimen: [id number] Received: 12/25/23 (Continued) Signed (signature on file) Melinda Iyer MD 12/30/23 1545 -------- Specimen: [id number] Received: 12/25/23 Status: ELGIN [place] Num: [id number] Spec Type: Cytology Subm Dr: Charly Nowak DO Tissues: A FNA SLIDES PATH (RT NECK MASS) Procedures: HE/2, -, PAPSTN/16 -------- Patient: Alen Calderon [id number] (Continued) -------- Specimen: [id number] Received: 12/25/23 (Continued) Immediate Evaluation Immediate adequacy assessment: Positive for metastatic malignancy. Reported by Dr. Iyer 12/25/23' CPT Codes 50792 -------- -------- Specimen: [id number] Received: 12/25/23-1452 Status: ELGIN Martinez Num: [id number] Spec Type: Cytology Subm Dr: Charly Nowak DO Tissues: A FNA SLIDES PATH (RT NECK MASS) Procedures: HE/2, -, PAPSTN/16 -------- Patient: Alen Calderon [id number] (Continued) -------- Signed (signature on file) Melinda Iyer MD 12/30/23 1545 Normal [facility] Capillary blood glucose malissa urement by glucometer (mass/volume)Ordered By: Charly Nowak on 12-24-2023 Glucose [Mass/Vol] 121 mg/dL Normal [facility] Comment on above: Random Glucose Refer ence Range is dependent on time and content of last meal. Glucose of more than 200 mg/dL in a nonstressed, ambulatory subject supports the diagnosis of Diabetes Mellitus. Result Comment: [place] om Glucose Reference Range is dependent on time and content of last meal. Glucose of more than 200 mg/dL in a nonstressed, ambulatory subject supports the diagnosis of Diabetes Mellitus. PERFORMED BY: [place] [address] PATHOLOGIST TYPEWRITER OPERATOR AUTOMATIC CHANDAN WINSTON M.D. Performed By: #### G LUFELECIA #### Point of Care testing , PET tumor subq tx strat sb-m ton 12-24-2023 PET tumor subq tx strat sb-mt [facility] [place] [address] Nuclear Medicine Report Signed Patient: Alen Calderon MR#: [id number] : 1965 Acct:[id number] Age/Sex: 58 / M ADM Date: 12/24/23 Loc: Room: Type: [facility] Attending Dr: Charly Nowak DO Copies to: DO Bruce Cash II, MD Ordering Provider: Charly Nowak DO Date of Service: 12/24/23 PET/PET tumor subq tx strat sb-mt: INITIAL/78115/ C76.0 PET tumor subq tx strat sb-mt [...] Bruce Serrano M.D.12/24/2023 10:50 AM Dictation Location: [place] [address] Transcribed By: [facility] 12/24/23 1050 Dictated By: Bruce Serrano II, MD 12/24/23 1007 Signed By: 12/24/23 1050 Normal [facility] Basic Metabolic Panelon GFR/1.73 sq M.predicted MDRD (S/P/Bld) [Vol rate/Area] mL/min/{1.73_m2} Normal [facility] Comment on above: Performed By: #### M G, CMP #### [address] Calcium [Mass/volume] in Ser um or PlasmaOrdered By: Charly Nowak on 12-23-2023 Calcium [Mass/Vol] 9.8 mg/dL Normal 8.6-10.3 [facility] Comment on above: Result Comment: PERF ORMED BY: [place] [address] PATHOLOGIST TYPEWRITER OPERATOR [employer] CHANDAN WINSTON M.D. Performed By: #### Yolanda Guerra, CMP #### [facility] [address] [place] [address] Carbon dioxide, total [Moles /volume] in Serum or PlasmaOrdered By: Charly Nowak on 12-23-2023 CO2 [Moles/Vol] 28.7 mmol/L Normal 21.0-31.0 [facility] Comment on above: Performed By: #### Yolanda Guerra, CMP #### [facility] [address] [place] [address] [place] Chloride [Moles/volume] in S ray or PlasmaOrdered By: Charly Nowak on 12-23-2023 Chloride [Moles/Vol] 102 mmol/L Normal 98-107 [facility] Comment on above: Performed By: #### Yolanda Guerra, CMP #### [facility] [address] [place] [address] Creatinine [Mass/volume] in Serum or PlasmaOrdered By: Charly Nowak on 12-23-2023 Creatinine [Mass/Vol] 0.91 mg/dL Normal 0.70-1.30 [facility] Comment on above: Performed By: #### Yolanda Guerra, CMP #### [address] ECG 12 lead ECGon 12-23-2023 ECG 12 lead ECG [facility] [place] [address] [place] [address] Electrocardiograph Report Signed Patient: Alen Calderon MR#: [id number] : 1965 Acct:[id number] Age/Sex: 58 / M ADM Date: 12/23/23 Loc: Room: Type: [facility] Attending Dr: Charly Nowak DO Ordering Provider: [...] Hoyt MD 0 12/23/23 1205 Normal [facility] Glucose [Mass/volume] in Ser um or PlasmaOrdered By: Charly Nowak on 12-23-2023 Glucose [Mass/Vol] 133 mg/dL High 70-100 [facility] Comment on above: ADA recommended refe rence rangeRandom Glucose Reference Range is dependent on time and content of last meal. Glucose of more than 200 mg/dL in a nonstressed, ambulatory subject supports the diagnosis of Diabetes Mellitus. Result Comment: [place] om Glucose Reference Range is dependent on time and content of last meal. Glucose of more than 200 mg/dL in a nonstressed, ambulatory subject supports the diagnosis of Diabetes Mellitus. ADA recommended reference range Performed By: #### M Charlie, CMP #### [facility] [address] [place] [address] No Panel InformationOrdered By: Charly Nowak on 12-23-2023 Estimated GFR (CKD-EPI) > 60.0 mL/Min [facility] Creatinine Clearance (Chem N/A [facility] Potassium [Moles/volume] in Serum or PlasmaOrdered By: Charly Nowak on 12-23-2023 Potassium [Moles/Vol] 4.8 mmol/L Normal 3.5-5.1 [facility] Comment on above: Performed By: #### M Charlie, CMP #### [facility] [address] [place] [address] Serum or plasma anion gap de terminationOrdered By: Charly Nowak on 12-23-2023 Anion gap [Moles/Vol] 12.1 mmol/L Normal 6.0-15.0 [facility] Comment on above: Performed By: #### M G, CMP #### [facility] [address] Sodium [Moles/volume] in Ser um or PlasmaOrdered By: Charly Nowak on 12-23-2023 Sodium [Moles/Vol] 138 mmol/L Normal 136-145 [facility] Comment on above: Performed By: #### M G, CMP #### [facility] [address] Urea nitrogen [Mass/volume] in Serum or PlasmaOrdered By: Charly Nowak on 12-23-2023 Urea nitrogen [Mass/Vol] 18 mg/dL Normal 7-25 [facility] Comment on above: Performed By: #### M G, CMP #### [facility] [address] Patient Educationon 08-18-19 Patient Education Urology Erectile [...] these instructions at home: Medicines ? Take eaos-vfl-wydmxse and prescription medicines only as told by [...] include cig (more content not included)... Normal [facility] Urology Office/Clinic Noteon 08-18-2023 Urology Office/Clinic Note [...] Abner Mojica, URL [facility] [address] [place] [address] [phone] Additional Instructions: PSA in 6 mos, f/u [...] (Itch) Socia (more content not included)... Normal [facility] Comment on above: Result Comment: Elec tronically Signed By: Abner MONIQUE MD\.br\Date and Time Signed: 08/18/23 11:50 EST\.br\Electronically Co-Signed By: Mihaela Flores\.br\Date and Time Co-Signed: 08/18/23 11:48 EST Lab Reportson 07-15-2023 Lab Reports [id number] [facility] Office Visiton 05-07-2023 Follow-up visit [id number] Alen Calderon 1965 M Date Provider Department Center 05/07/2023 1596-ADOLFO CANTU CARD [facility] Family History Problem Relation Age of Onset No Known Problems Mother No Known Problems Father Family Status - Relation Status Age at Mother Father Level of Service:52780 [place] OFFICE/OUTPATIENT ESTABLISHED MOD MDM 30-39 MIN [facility] Office Visiton 04-09-2023 Follow-up visit [id number] Alen Calderon 1965 M Date Provider Department Center 04/09/2023 120-VINCENT MOLINA CARD [facility] Family History Problem Relation Age of Onset No Known Problems Mother No Known Problems Father Family Status - Relation Status Age at Mother Father Level of Service:24684 [place] OFFICE/OUTPATIENT ESTABLISHED MOD MDM 30-39 MIN Reason for Visit and Comments: Follow-up [129089] - 6 month F/U [facility] Office Visiton 09-25-2022 Follow-up visit [id number] Alen Calderon 1965 M Date Provider Department Center 09/25/2022 166-STELLA ATWOOD ESTER [place] [facility] Family History Problem Relation Age of Onset No Known Problems Mother No Known Problems Father Family Status - Relation Status Age at Mother Father Level of Service:22173 [place] OFFICE/OUTPATIENT ESTABLISHED LOW MDM 20-29 MIN Reason for Visit and Comments: Atrial Fibrillation [80] [facility] Auth for Release of Medical Recordson 09-24-2022 Auth for Release of Medical Records [id number] .00CD:127 [facility] Auth for Release of Medical Recordson 09-06-2022 Auth for Release of Medical Records [id number] .00CD:127 [facility] Auth for Release of Medical Recordson 09-02-2022 Auth for Release of Medical Records [id number] .00CD:127 Normal [facility] PROF 14(COMP METB)on 022 Albumin [Mass/Vol] 3.8 g/dL Normal 3.4-5.0 [facility] Comment on above: Performed By: #### C MP, TSH #### [facility] [address] [address] [address] Edilson Iyer Albumin/Globulin [Mass ratio] 0.9 {ratio} Normal [facility] Comment on above: Performed By: #### C MP, TSH #### [facility] [address] [place] [address] [address] Edilson Iyer ALP [Catalytic activity/Vol] 69 U/L Normal 46-116 [facility] Comment on above: Performed By: #### C MP, TSH #### [facility] [address] [place] [address] [address] Edilson Iyer ALT [Catalytic activity/Vol] 29 U/L Normal 16-63 [facility] Comment on above: Performed By: #### C MP, TSH #### [facility] [address] [place] [address] [address] Edilson Iyer Anion gap [Moles/Vol] 7.7 mmol/L Normal [facility] Comment on above: Performed By: #### C MP, TSH #### [facility] [address] [place] [address] [address] Edilson Iyer AST [Catalytic activity/Vol] 18 U/L Normal 15-37 [facility] Comment on above: Performed By: #### C MP, TSH #### [facility] [address] [place] [address] [address] Edilson Iyer Bilirubin [Mass/Vol] 0.4 mg/dL Normal 0.2-1.0 [facility] Comment on above: Performed By: #### C MP, TSH #### [facility] [address] [place] [address] [address] Edilson Iyer Calcium [Mass/Vol] 9.0 mg/dL Normal 8.5-10.1 [facility] Comment on above: Performed By: #### C MP, TSH #### [facility] [address] [place] [address] [address] Edilson Iyer Chloride [Moles/Vol] 104 mmol/L Normal 98-107 [facility] Comment on above: Performed By: #### C MP, TSH #### [facility] [address] [place] [address] [address] Edilson Iyer CO2 [Moles/Vol] 29.4 mmol/L Normal 21.0-32.0 [facility] Comment on above: Performed By: #### C MP, TSH #### [facility] [address] [place] [address] [address] Edilson Iyer Creatinine [Mass/Vol] 1.12 mg/dL Normal 0.70-1.30 [facility] Comment on above: Performed By: #### C MP, TSH #### [facility] [address] [place] [address] [address] Edilson Iyer EGFR-AF MALIAN >60 Normal >=60 [facility] Comment on above: Performed By: #### C MP, TSH #### [facility] [address] [place] [address] [address] Edilson Iyer EGFR-NON AF MALIAN >60 Normal >=60 [facility] Comment on above: Performed By: #### C MP, TSH #### [facility] [address] [place] [address] [address] Edilson Iyer Globulin (S) [Mass/Vol] 4.0 g/dL Normal [facility] Comment on above: Performed By: #### C MP, TSH #### [facility] [address] [place] [address] [address] Edilson Iyer Glucose [Mass/Vol] 108 mg/dL Critically high 74-106 [facility] Comment on above: Performed By: #### C MP, TSH #### [facility] [address] [address] [address] Edilson Iyer Potassium [Moles/Vol] 4.1 mmol/L Normal 3.5-5.1 [facility] Comment on above: Performed By: #### C MP, TSH #### [facility] [address] [place] [address] [address] Edilson Iyer Protein [Mass/Vol] 7.8 g/dL Normal 6.4-8.2 [facility] Comment on above: Performed By: #### C MP, TSH #### [facility] [address] [place] [address] [address] Edilson Iyer Sodium [Moles/Vol] 137 mmol/L Normal 136-145 [facility] Comment on above: Performed By: #### C MP, TSH #### [facility] [address] [place] [address] [address] Edilson Iyer Urea nitrogen [Mass/Vol] 23.0 mg/dL Critically high 7.0-18.0 [facility] Comment on above: Performed By: #### C MP, TSH #### [facility] [address] [address] [address] Edilson Iyer Urea nitrogen/Creatinine [Mass ratio] 20.5 mg/mg Normal [facility] Comment on above: Performed By: #### C MP, TSH #### [facility] [address] [address] [address] Edilson Iyer TSHon 05-08-2022 TSH 1.420 uIU/mL Normal 0.358-3.740 [facility] Comment on above: Performed By: #### C MP, TSH #### [facility] [address] [address] [address] Edilson Iyer Cardiovascular Lab Reporton 03-20-2022 Cardiovascular Lab Report [facility] Patient Name: Alen Calderon MR #: [id number] [facility] Physician: Theo Virgen MD Service Date: 03/20/2022 Department of Birthdate: 1965 Medicine Room #: Division of Cardiology Adult Cardiovascular Services [place] [address] Cardiovascular Laboratory Report ATRIAL FIBRILLATION ABLATION PROCEDURE [...] CS Catheter (EZ Steer) 9Fx1: ICE catheter. 01195V Heparin bolus was given followed by additional [...] anatomy (more content not included)... Normal [facility] POC GLUCOSE LABon 03-20-2022 Glucose [Mass/Vol] 117 mg/dL High 70-100 [facility] Comment on above: Performed By: #### 3 1673 #### [facility] [address] [place] [address], [facility] Glucose [Mass/Vol] 136 mg/dL High 70-100 [facility] Comment on above: Performed By: #### 6 5011 #### [facility] [address] PROTHROMBIN TIMEon INR Coag (PPP) [Relative time] 1.06 {INR} Normal 0.91-1.16 [facility] Comment on above: Order Comment: No: [...] 1995;108:231S-246S. Performed By: #### 5 6101 #### [facility] [address] [facility] [place] [address], [facility] PT Coag (PPP) [Time] 13.8 s Normal 12.3-14.8 [facility] Comment on above: Order Comment: No: D o not add to previous draw Result Comment: ALL RESULTS MUST BE INTERPRETED WITH RESPECT TO BLOOD DRAWING ARTIFACT OR DILUTION ERROR OF ANTICOAGULANT AT THE TIME OF SAMPLING. Performed By: #### 5 6101 #### [facility] [address] Covid-19 PCR ([facility])on 02-19 SARS-CoV-2 (COVID-19) RNA WERO+probe Ql (Unsp spec) Not detected Normal NOT DETECTED [facility] Comment on above: Result Comment: This test is not yet approved or cleared by the [place] FDA. When there are no FDA-approved or cleared tests available, and other criteria are met, FDA can make tests available under an emergency access mechanism called an Emergency Use Authorization (EUA). The EUA for this test is supported by the [place] of Health and Human Service's (HHS's) declaration [...] consistent with SARS-CoV-2. Performed By: #### [facility] #### [facility] [address] [place] [address] Dr. Edilson Iyer BASIC METABOLIC PANELon 08- Calcium [Mass/Vol] 10.0 mg/dL Normal 8.6-10.3 [facility] Comment on above: Performed By: #### 0 0071 #### [facility] [address] [facility] [place] [address], [facility] Chloride [Moles/Vol] 97 mmol/L Low 98-107 [facility] Comment on above: Performed By: #### 0 0071 #### [facility] [address] [place] [address], [place] CO2 [Moles/Vol] 31 mmol/L Normal 21-31 [facility] Comment on above: Performed By: #### 0 0071 #### [facility] [address] [facility] [place] [address], [place] Creatinine [Mass/Vol] 1.11 mg/dL Normal 0.70-1.30 [facility] Comment on above: Performed By: #### 0 0071 #### [facility] [address] [facility] [place] [address], [facility] GFR/1.73 sq M.predicted among non-blacks MDRD (S/P/Bld) [Vol rate/Area] mL/min/{1.73_m2} Normal >60 [facility] Comment on above: Result Comment: [facility]'s estimated glomerular filtration rate (eGFR) will [...] individuals. Performed By: #### 0 0071 #### [facility] [address] [facility] [place] [address], [facility] Glucose [Mass/Vol] 124 mg/dL High 70-100 [facility] Comment on above: Performed By: #### 0 0071 #### [facility] [address] [place] [address], [facility] Potassium [Moles/Vol] 4.3 mmol/L Normal 3.5-5.1 [facility] Comment on above: Performed By: #### 0 0071 #### [facility] [address] [facility] [place] [address], [facility] Sodium [Moles/Vol] 136 mmol/L Normal 136-145 [facility] Comment on above: Performed By: #### 0 0071 #### [facility] [address] [place] [id number], [facility] Urea nitrogen [Mass/Vol] 20 mg/dL Normal 7-25 [facility] Comment on above: Performed By: #### 0 0071 #### [facility] [address] [place], [address] CBC COMPLETE BLOOD COUNTon 0 03-05-2022 Erythrocyte distribution width (RBC) [Ratio] 12.4 % Normal 11.5-15.0 [facility] Comment on above: Performed By: #### 5 0608 #### [facility] [address] [place] [address], [facility] Hematocrit (Bld) [Volume fraction] 46.7 % Normal 39.0-50.0 [facility] Comment on above: Performed By: #### 5 0608 #### [facility] [address] [facility] [place] [address], [facility] Hemoglobin (Bld) [Mass/Vol] 16.2 g/dL Normal 13.0-17.0 [facility] Comment on above: Performed By: #### 5 0608 #### [facility] [address] [facility] [place] [address], [facility] MCH (RBC) [Entitic mass] 32.9 pg Normal 27.0-33.0 [facility] Comment on above: Performed By: #### 5 0608 #### [facility] [address] [facility] [place] [address], [facility] MCHC (RBC) [Mass/Vol] 34.7 g/dL Normal 32.0-35.0 [facility] Comment on above: Performed By: #### 5 0608 #### [facility] [address] [facility] [place] [address], [facility] MCV (RBC) [Entitic vol] 94.9 fL Normal 82.0-98.0 [facility] Comment on above: Performed By: #### 5 0608 #### [facility] [address] [facility] [place] [address], [facility] Nucleated RBC/100 WBC (Bld) [Ratio] 0 % Normal 0-0 [facility] Comment on above: Performed By: #### 5 0608 #### [facility] [address] [place] [address], [facility] PLAT CNT 260 10*3/uL Normal 150-400 [facility] Comment on above: Performed By: #### 5 0608 #### [place] [address], [facility] RBC (Bld) [#/Vol] 4.92 10*6/uL Normal 4.20-5.70 [facility] Comment on above: Performed By: #### 5 0608 #### [facility] [address] [place] [address], [facility] WBC (Bld) [#/Vol] 7.55 10*3/uL Normal 4.00-10.60 [facility] Comment on above: Performed By: #### 5 0608 #### [place] [address], [facility] CTA CHESTon 03-05-2022 CTA CHEST [facility] [facility] Department of Radiology [address] [place], [place] [id number] Patient Name: ALEN CALDERON : 1965 Sex: M Age: Race: White Pt. Location: Patient Status: D Ordered Date: 01/24/2022 2:30:00 PM Completed Date: 03/05/2022 11:55 AM Requesting Provider: THEO VIRGEN Attending Provider: THEO VIRGEN Report Copy To: CHARLY HOOPER Signs & Symptoms: I48.0 Paroxysmal atrial fibrillation I10 History: [place] DM? on metformin? kidney dis? Comments: AFib [...] achievable. Electronically signed: Asif Urrutia. Transcribed by: [email or web address], User Resident: Electronically Signed by: ASIF URRUTIA @ 03/09/2022 07:31 AM Normal [facility] Comment on above: Order Comment: AFib Ablation 03/20 ECHOCARDIO M/2D COMPLETEon 0 12-27-2021 ECHOCARDIO M/2D COMPLETE Patient: ALEN CALDERON Exam Date: 12/27/2021 : 1965 Gender:M Ordering : THEO VIGREN Admission #: [id number] Family : DR CHARLY HOOPER D.O. Order #: [id number] CLICK HERE TO VIEW EXAM ECHOCARDIOGRAM REPORT [...] Area(A4C): 23.40 cm2 Left Atrium Systolic Volume(A2C): 97506 mm3 Left Atrium Systolic Volume(A4C): 43771 mm3 Mitral Valve MV E to A [...] Jluis Espinoza M.D. on 12/27/2021 at 20:15 Normal [facility] Vital Signs Date Time Vital Sign Value Performing Clinician Facility 06-10-2024 11:32-0500 Body height 177.8 cm [facility] 06-10-2024 11:32-0500 Body mass index (BMI) [Ratio] 32.3 kg/m2 [facility] 06-10-2024 11:32-0500 Body temperature 97.8 [degF] [facility] 06-10-2024 11:32-0500 Body weight 102.05 kg [facility] 06-10-2024 11:32-0500 Diastolic blood pressure 92 mm[Hg] [facility] 06-10-2024 11:32-0500 Heart rate 68 /min [facility] 06-10-2024 11:32-0500 Respiratory rate 18 /min [facility] 06-10-2024 11:32-0500 SaO2% (BldA) [Mass fraction] 98 % [facility] 06-10-2024 11:32-0500 Systolic blood pressure 178 mm[Hg] [facility] 06-01-2024 08:49-0500 Body height 177.8 cm Charly Gregjaiden DO Work Phone: [facility] 06-01-2024 08:49-0500 Body mass index (BMI) [Ratio] 35.15 kg/m2 Charly Garzacek DO Work Phone: [facility] 06-01-2024 08:49-0500 Body weight 111.13 kg Charly MorfinSiesta Medical DO Work Phone: [facility] 05-10-2024 13:50-0400 Body height 177.8 cm Charly Gregcek DO Work Phone: [facility] 05-10-2024 13:50-0400 Body mass index (BMI) [Ratio] 35.15 kg/m2 Charly Murcek DO Work Phone: [facility] 05-10-2024 13:50-0400 Body weight 111.13 kg Charly Gregcek DO Work Phone: [facility] 04-08-2024 09:34-0400 Body height 177.8 cm DO Charly Ball Work Phone: [facility] 04-08-2024 09:34-0400 Body mass index (BMI) [Ratio] 30.4 kg/m2 DO Charly Ball Work Phone: [facility] 04-08-2024 09:34-0400 Body weight 96.16 kg DO Charly Ball Work Phone: [facility] 04-08-2024 09:34-0400 Diastolic blood pressure 97 mm[Hg] DO Charly Ball Work Phone: [facility] 04-08-2024 09:34-0400 Heart rate 79 /min DO Charly Ball Work Phone: [facility] 04-08-2024 09:34-0400 Respiratory rate 20 /min DO Charly Ball Work Phone: [facility] 04-08-2024 09:34-0400 SaO2% (BldA) [Mass fraction] 98 % DO Charly Ball Work Phone: [facility] 04-08-2024 09:34-0400 Systolic blood pressure 169 mm[Hg] DO Charly Ball Work Phone: [facility] 03-30-2024 09:29-0400 Body height 177.8 cm Charly Gregcek DO Work Phone: [facility] 03-30-2024 09:29-0400 Body mass index (BMI) [Ratio] 35.15 kg/m2 Charly Murcek DO Work Phone: [facility] 03-30-2024 09:29-0400 Body weight 111.13 kg Charly Murjohnk DO Work Phone: [facility] 03-18-2024 09:16-0400 Body height 177.8 cm DO Charly Ball Work Phone: [facility] 03-18-2024 09:16-0400 Body mass index (BMI) [Ratio] 30.7 kg/m2 DO Charly Ball Work Phone: [facility] 03-18-2024 09:16-0400 Body temperature 97.8 [degF] DO Charly Ball Work Phone: [facility] 03-18-2024 09:16-0400 Body weight 97.06 kg DO Charly Ball Work Phone: [facility] 03-18-2024 09:16-0400 Diastolic blood pressure 73 mm[Hg] DO Charly Ball Work Phone: [facility] 03-18-2024 09:16-0400 Heart rate 75 /min DO Charly Ball Work Phone: [facility] 03-18-2024 09:16-0400 Respiratory rate 20 /min DO Cahrly Ball Work Phone: [facility] 03-18-2024 09:16-0400 SaO2% (BldA) [Mass fraction] 100 % DO Charly Ball Work Phone: [facility] 03-18-2024 09:16-0400 Systolic blood pressure 116 mm[Hg] DO Charly Ball Work Phone: [facility] 03-17-2024 10:50-0400 Body temperature 97 [degF] DO Charly Ball Work Phone: [facility] 03-17-2024 10:50-0400 Diastolic blood pressure 60 mm[Hg] DO Charly Ball Work Phone: [facility] 03-17-2024 10:50-0400 Heart rate 77 /min DO Charly Ball Work Phone: [facility] 03-17-2024 10:50-0400 Respiratory rate 18 /min DO Charly Ball Work Phone: [facility] 03-17-2024 10:50-0400 SaO2% (BldA) [Mass fraction] 97 % DO Charly Ball Work Phone: [facility] 03-17-2024 10:50-0400 Systolic blood pressure 98 mm[Hg] DO Charly Ball Work Phone: [facility] 03-05-2024 09:28-0400 Diastolic blood pressure 77 mm[Hg] DO Charly Ball Work Phone: [facility] 03-05-2024 09:28-0400 Heart rate 64 /min DO Charly Ball Work Phone: [facility] 03-05-2024 09:28-0400 Respiratory rate 18 /min DO Charly Ball Work Phone: [facility] 03-05-2024 09:28-0400 SaO2% (BldA) [Mass fraction] 99 % DO Charly Ball Work Phone: [facility] 03-05-2024 09:28-0400 Systolic blood pressure 122 mm[Hg] DO Charly Ball Work Phone: [facility] 03-02-2024 08:18-0400 Body temperature 98.5 [degF] DO Charly Ball Work Phone: [facility] 03-02-2024 08:18-0400 Body weight 98.65 kg DO Charly Ball Work Phone: [facility] 02-25-2024 12:05-0400 Body temperature 97.6 [degF] DO Charly Ball Work Phone: [facility] 02-25-2024 12:05-0400 Body weight 103.87 kg DO Charly Ball Work Phone: [facility] 02-25-2024 12:05-0400 Diastolic blood pressure 76 mm[Hg] DO Charly Ball Work Phone: [facility] 02-25-2024 12:05-0400 Heart rate 67 /min DO Charly Ball Work Phone: [facility] 02-25-2024 12:05-0400 Respiratory rate 16 /min DO Charly Ball Work Phone: [facility] 02-25-2024 12:05-0400 SaO2% (BldA) [Mass fraction] 98 % DO Charly Ball Work Phone: [facility] 02-25-2024 12:05-0400 Systolic blood pressure 136 mm[Hg] DO Charly Ball Work Phone: [facility] 02-24-2024 16:34-0400 Body height 177.8 cm DO Charly Ball Work Phone: [facility] 02-24-2024 08:22-0400 Body temperature 98 [degF] DO Charly Ball Work Phone: [facility] 02-24-2024 08:22-0400 Diastolic blood pressure 82 mm[Hg] DO Charly Ball Work Phone: [facility] 02-24-2024 08:22-0400 Heart rate 67 /min DO Charly Ball Work Phone: [facility] 02-24-2024 08:22-0400 Respiratory rate 16 /min DO Charly Ball Work Phone: [facility] 02-24-2024 08:22-0400 SaO2% (BldA) [Mass fraction] 99 % DO Charly Ball Work Phone: [facility] 02-24-2024 08:22-0400 Systolic blood pressure 129 mm[Hg] DO Charly Ball Work Phone: [facility] 02-18-2024 15:50-0400 Body height 177.8 cm DO Charly Ball Work Phone: [facility] 02-18-2024 08:39-0400 Body temperature 97.7 [degF] DO Charly Ball Work Phone: [facility] 02-18-2024 08:39-0400 Body weight 104.91 kg DO Charly Ball Work Phone: [facility] 02-18-2024 08:39-0400 Diastolic blood pressure 57 mm[Hg] DO Charly Ball Work Phone: [facility] 02-18-2024 08:39-0400 Heart rate 61 /min DO Charly Ball Work Phone: [facility] 02-18-2024 08:39-0400 Respiratory rate 18 /min DO Charly Ball Work Phone: [facility] 02-18-2024 08:39-0400 SaO2% (BldA) [Mass fraction] 98 % DO Charly Ball Work Phone: [facility] 02-18-2024 08:39-0400 Systolic blood pressure 91 mm[Hg] DO Charly Ball Work Phone: [facility] 02-17-2024 08:48-0400 Body temperature 98 [degF] DO Charly Ball Work Phone: [facility] 02-17-2024 08:48-0400 Body weight 104.77 kg DO Charly Ball Work Phone: [facility] 02-17-2024 08:48-0400 Diastolic blood pressure 87 mm[Hg] DO Charly Ball Work Phone: [facility] 02-17-2024 08:48-0400 Heart rate 65 /min DO Charly Ball Work Phone: [facility] 02-17-2024 08:48-0400 Respiratory rate 18 /min DO Charly Ball Work Phone: [facility] 02-17-2024 08:48-0400 SaO2% (BldA) [Mass fraction] 97 % DO Charly Ball Work Phone: [facility] 02-17-2024 08:48-0400 Systolic blood pressure 133 mm[Hg] DO Charly Ball Work Phone: [facility] 02-10-2024 16:37-0400 Body height 177.8 cm DO Charly Ball Work Phone: [facility] 02-10-2024 08:00-0400 Body temperature 97.3 [degF] DO Charly Ball Work Phone: [facility] 02-10-2024 08:00-0400 Body weight 108.13 kg DO Charly Ball Work Phone: [facility] 02-10-2024 08:00-0400 Diastolic blood pressure 71 mm[Hg] DO Charly Ball Work Phone: [facility] 02-10-2024 08:00-0400 Heart rate 64 /min DO Charly Ball Work Phone: [facility] 02-10-2024 08:00-0400 Respiratory rate 18 /min DO Charly Ball Work Phone: [facility] 02-10-2024 08:00-0400 SaO2% (BldA) [Mass fraction] 98 % DO Charly Ball Work Phone: [facility] 02-10-2024 08:00-0400 Systolic blood pressure 108 mm[Hg] DO Charly Ball Work Phone: [facility] 02-05-2024 16:49-0400 Body height 177.8 cm DO Charly Ball Work Phone: [facility] 02-03-2024 09:13-0400 Body weight 109.3 kg DO Charly Ball Work Phone: [facility] 02-03-2024 08:33-0400 Body temperature 98.2 [degF] DO Charly Ball Work Phone: [facility] 02-03-2024 08:33-0400 Body weight 109.31 kg DO Charly Ball Work Phone: [facility] 02-03-2024 08:33-0400 Diastolic blood pressure 76 mm[Hg] DO Charly Ball Work Phone: [facility] 02-03-2024 08:33-0400 Heart rate 63 /min DO Charly Ball Work Phone: [facility] 02-03-2024 08:33-0400 Respiratory rate 18 /min DO Charly Ball Work Phone: [facility] 02-03-2024 08:33-0400 SaO2% (BldA) [Mass fraction] 98 % DO Charly Ball Work Phone: [facility] 02-03-2024 08:33-0400 Systolic blood pressure 117 mm[Hg] DO Charly Ball Work Phone: [facility] 01-27-2024 15:50-0400 Body height 177.8 cm DO Charly Ball Work Phone: [facility] 01-27-2024 08:05-0400 Body temperature 98.5 [degF] DO Charly Ball Work Phone: [facility] 01-27-2024 08:05-0400 Body weight 112.3 kg DO Charly Ball Work Phone: [facility] 01-27-2024 08:05-0400 Diastolic blood pressure 80 mm[Hg] DO Charly Ball Work Phone: [facility] 01-27-2024 08:05-0400 Heart rate 66 /min DO Charly Ball Work Phone: [facility] 01-27-2024 08:05-0400 Respiratory rate 20 /min DO Charly Ball Work Phone: [facility] 01-27-2024 08:05-0400 SaO2% (BldA) [Mass fraction] 94 % DO Charly Ball Work Phone: [facility] 01-27-2024 08:05-0400 Systolic blood pressure 128 mm[Hg] DO Charly Ball Work Phone: [facility] 01-20-2024 08:41-0400 Diastolic blood pressure 70 mm[Hg] DO Charly Ball Work Phone: [facility] 01-20-2024 08:41-0400 Heart rate 54 /min DO Charly Ball Work Phone: [facility] 01-20-2024 08:41-0400 Respiratory rate 16 /min DO Charly Ball Work Phone: [facility] 01-20-2024 08:41-0400 SaO2% (BldA) [Mass fraction] 95 % DO Charly Ball Work Phone: [facility] 01-20-2024 08:41-0400 Systolic blood pressure 122 mm[Hg] DO Charly Ball Work Phone: [facility] 01-20-2024 08:11-0400 Inhaled oxygen flow rate 6 L/min DO Charly Ball Work Phone: [facility] 01-20-2024 06:29-0400 Body height 177.8 cm DO Charly Ball Work Phone: [facility] 01-20-2024 06:29-0400 Body mass index (BMI) [Ratio] 35.9 kg/m2 DO Charly Ball Work Phone: [facility] 01-20-2024 06:29-0400 Body weight 113.39 kg DO Charly Ball Work Phone: [facility] 01-20-2024 05:52-0400 Body temperature 98.5 [degF] DO Charly Ball Work Phone: [facility] 01-12-2024 14:28-0400 Body height 177.8 cm DO Charly Ball Work Phone: [facility] 01-12-2024 14:28-0400 Body mass index (BMI) [Ratio] 34.9 kg/m2 DO Charly Ball Work Phone: [facility] 01-12-2024 14:28-0400 Body weight 110.67 kg DO Charly Ball Work Phone: [facility] 01-12-2024 14:28-0400 Diastolic blood pressure 80 mm[Hg] DO Charly Ball Work Phone: [facility] 01-12-2024 14:28-0400 Systolic blood pressure 126 mm[Hg] DO Charly Ball Work Phone: [facility] 01-07-2024 13:05-0400 Body height 177.8 cm DO Charly Ball Work Phone: [facility] 01-07-2024 13:05-0400 Body mass index (BMI) [Ratio] 35.9 kg/m2 DO Charly Ball Work Phone: [facility] 01-07-2024 13:05-0400 Body weight 113.39 kg DO Charly Ball Work Phone: [facility] 01-07-2024 13:05-0400 Diastolic blood pressure 87 mm[Hg] DO Charly Ball Work Phone: [facility] 01-07-2024 13:05-0400 Heart rate 69 /min DO Charly Ball Work Phone: [facility] 01-07-2024 13:05-0400 Respiratory rate 18 /min DO Charly Ball Work Phone: [facility] 01-07-2024 13:05-0400 SaO2% (BldA) [Mass fraction] 97 % DO Charly Ball Work Phone: [facility] 01-07-2024 13:05-0400 Systolic blood pressure 149 mm[Hg] DO Charly Ball Work Phone: [facility] 12-25-2023 12:15-0400 Diastolic blood pressure 91 mm[Hg] DO Charly Ball Work Phone: [facility] 12-25-2023 12:15-0400 Heart rate 57 /min DO Charly Ball Work Phone: [facility] 12-25-2023 12:15-0400 Respiratory rate 16 /min DO Charly Ball Work Phone: [facility] 12-25-2023 12:15-0400 SaO2% (BldA) [Mass fraction] 94 % DO Charly Ball Work Phone: [facility] 12-25-2023 12:15-0400 Systolic blood pressure 150 mm[Hg] DO Charly Ball Work Phone: [facility] 12-25-2023 11:35-0400 Body temperature 97 [degF] DO Charly Ball Work Phone: [facility] 12-25-2023 11:12-0400 Inhaled oxygen flow rate 8 L/min DO Charly Hooper Work Phone: [facility] 12-25-2023 10:12-0400 Body height 176.53 cm DO Charly Hooper Work Phone: [facility] 12-25-2023 10:12-0400 Body mass index (BMI) [Ratio] 37.2 kg/m2 DO Charly Ball Work Phone: [facility] 12-25-2023 10:12-0400 Body weight 116 kg DO Charly Hooper Work Phone: [facility] 11-13-2023 08:05-0400 Body height 180.34 cm [facility] 11-13-2023 08:05-0400 Body mass index (BMI) [Ratio] 35.1 kg/m2 [facility] 11-13-2023 08:05-0400 Body weight 114.3 kg [facility] 11-13-2023 08:05-0400 Diastolic blood pressure 80 mm[Hg] [facility] 11-13-2023 08:05-0400 Heart rate 71 /min [facility] 11-13-2023 08:05-0400 SaO2% (BldA) [Mass fraction] 98 % [facility] 11-13-2023 08:05-0400 Systolic blood pressure 132 mm[Hg] [facility] 08-18-2023 10:31-0500 Blood Pressure Location Abnertania MONIQUE [facility] 08-18-2023 10:31-0500 Diastolic blood pressure 86 mm[Hg] Abner MONIQUE [facility] 08-18-2023 10:31-0500 Heart rate 84 /min Abnertania MONIQUE [facility] 08-18-2023 10:31-0500 Respiratory rate 16 /min Abner MONIQUE [facility] 08-18-2023 10:31-0500 Systolic blood pressure 132 mm[Hg] Abner MONIQUE [facility] 08-09-2022 09:21-0500 Blood Pressure Location Abner MONIQUE [facility] 08-09-2022 09:21-0500 Diastolic blood pressure 83 mm[Hg] Abner MONIQUE [facility] 08-09-2022 09:21-0500 Heart rate 70 /min Abner MONIQUE [facility] 08-09-2022 09:21-0500 Respiratory rate 16 /min Abner MONIQUE [facility] 08-09-2022 09:21-0500 Systolic blood pressure 129 mm[Hg] Abner MONIQUE [facility] Encounters Encounter Date Encounter Type Care Provider Facility Start: 08-16-2024 ambulatory Abner Medeirosi ty:TAMMY Arredondo Start: 07-05-2024 ambulatory Charly Ball Facility: [facility] Start: 06-10-2024 End: 06-10-2024 ambulatory [facility] Work Phone: Start: 06-10-2024 End: 06-10-2024 Patient encounter procedure [facility] Work Phone: Start: 06-01-2024 End: 06-01-2024 Bamboo flowsheet Charly Nowak DO Work Phone: [facility] Start: 06-01-2024 End: 06-01-2024 Bamboo flowsheet Charly Nowak DO Work Phone: [facility] Start: 06-01-2024 End: 06-01-2024 Office outpatient visit 25 minutes Charly Nowak DO Work Phone: [facility] Comment on above: Lesion of tongue (Pr imary Dx); Malignant neoplasm of oropharynx (CMS/HCC); History of head and neck radiation Start: 06-01-2024 End: 06-01-2024 ambulatory CHARLY NOWAK Not Available Start: 05-10-2024 End: 05-10-2024 Bamboo flowsheet Charly Nowak DO Work Phone: [facility] Start: 05-10-2024 End: 05-10-2024 Bamboo flowsheet Charly Nowak DO Work Phone: [facility] Start: 05-10-2024 End: 05-10-2024 Office outpatient visit 25 minutes Charly Nowak DO Work Phone: [facility] Comment on above: Lesion of tongue (Pr imary Dx); Malignant neoplasm of oropharynx (CMS/HCC); History of head and neck radiation Start: 05-10-2024 End: 05-10-2024 ambulatory CHARLY NOWAK Not Available Start: 04-08-2024 Registered Recurring DO Leobardo in Ball Work Phone: [facility] Work Phone: Start: 04-08-2024 End: 04-08-2024 ambulatory DO Charly Ball Work Phone: [facility] Work Phone: Start: 04-08-2024 End: 04-08-2024 Patient encounter procedure DO Charly Hooper Work Phone: 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 Work Phone: Start: 03-18-2024 Registered Recurring DO Loebardo in Ball Work Phone: [facility] Work Phone: Start: 03-09-2024 Non-patient / Non-visit DO Riaz foy Ball Work Phone: [facility] Work Phone: Start: 03-09-2024 Non-patient / Non-visit DO Riaz foy Ball Work Phone: [facility] Work Phone: Start: 03-08-2024 Non-patient / Non-visit DO Riaz foy Ball Work Phone: [facility] Work Phone: Start: 03-08-2024 End: 03-08-2024 Patient encounter procedure DO Charly Ball Work Phone: [facility] Start: 03-08-2024 End: 03-08-2024 ambulatory DO Charly Ball Work Phone: [facility] Work Phone: Start: 03-05-2024 Registered Recurring DO Benjam in Ball Work Phone: [facility] Work Phone: Start: 03-03-2024 Non-patient / Non-visit DO Riaz foy Ball Work Phone: [facility] Work Phone: Start: 03-01-2024 Registered Recurring DO Benjam in Ball Work Phone: [facility] Work Phone: Start: 03-01-2024 Non-patient / Non-visit DO Riaz Hooper Work Phone: [facility] Work Phone: Start: 03-01-2024 End: 03-01-2024 Patient encounter procedure DO Charly Ball Work Phone: [facility] Start: 03-01-2024 End: 03-01-2024 ambulatory DO Charly Ball Work Phone: [facility] Work Phone: Start: 02-25-2024 End: 02-25-2024 ambulatory DO Charly Ball Work Phone: [facility] Work Phone: Start: 02-25-2024 End: 02-25-2024 Patient encounter procedure DO Charly Ball Work Phone: [facility] Work Phone: Start: 02-25-2024 Registered Recurring DO Benjam in Ball Work Phone: [facility] Work Phone: Start: 02-25-2024 Non-patient / Non-visit DO Riaz auin Ball Work Phone: [facility] Work Phone: Start: 02-24-2024 ambulatory Marbella Muñoz Faci lity:[facility] Start: 02-24-2024 Registered Recurring DO Benjam in Ball Work Phone: [facility] [place] Start: 02-23-2024 Non-patient / Non-visit DO Riaz auin Ball Work Phone: [facility] Work Phone: Start: 02-23-2024 Registered Recurring DO Benjam in Ball Work Phone: [facility] Work Phone: Start: 02-23-2024 Non-patient / Non-visit DO Riaz foy Ball Work Phone: [facility] Work Phone: Start: 02-23-2024 End: 02-23-2024 Patient encounter procedure DO Charly Ball Work Phone: [facility] Start: 02-23-2024 End: 02-23-2024 ambulatory DO Charly Ball Work Phone: [facility] Work Phone: Start: 02-18-2024 Non-patient / Non-visit DO Riaz foy Ball Work Phone: [facility] Work Phone: Start: 02-17-2024 End: 02-17-2024 ambulatory DO Charly Ball Work Phone: [facility] Work Phone: Start: 02-17-2024 End: 02-17-2024 Patient encounter procedure DO Charly Hooper Work Phone: [facility] Work Phone: Start: 02-17-2024 Registered Recurring DO Benjam in Ball Work Phone: [facility] Work Phone: Start: 02-16-2024 Registered Recurring DO Benjam in Ball Work Phone: [facility] Work Phone: Start: 02-16-2024 Non-patient / Non-visit DO Riaz Hooper Work Phone: [facility] Work Phone: Start: 02-16-2024 Non-patient / Non-visit DO Riaz foy Ball Work Phone: [facility] Work Phone: Start: 02-16-2024 End: 02-16-2024 Patient encounter procedure DO Charly Hooper Work Phone: [facility] Start: 02-16-2024 End: 02-16-2024 ambulatory DO Charly Hooper Work Phone: [facility] Work Phone: Start: 02-11-2024 Non-patient / Non-visit DO Riaz foy Ball Work Phone: [facility] Work Phone: Start: 02-10-2024 Registered Recurring DO Benjam in Ball Work Phone: [facility] Start: 02-09-2024 Registered Recurring DO Benjam in Ball Work Phone: [facility] Work Phone: Start: 02-09-2024 Non-patient / Non-visit DO Riaz auin Ball Work Phone: [facility] Work Phone: Start: 02-09-2024 End: 02-09-2024 Patient encounter procedure DO Charly Ball Work Phone: [facility] Start: 02-09-2024 End: 02-09-2024 ambulatory DO Charly Ball Work Phone: [facility] Work Phone: Start: 02-04-2024 Non-patient / Non-visit DO Riaz foy Ball Work Phone: [facility] Work Phone: Start: 02-03-2024 Registered Recurring DO Benjam in Ball Work Phone: [facility] Start: 02-03-2024 Registered Recurring DO Benjam in Ball Work Phone: [facility] Work Phone: Start: 02-03-2024 End: 02-03-2024 ambulatory DO Charly Ball Work Phone: [facility] Work Phone: Start: 02-03-2024 End: 02-03-2024 Patient encounter procedure DO Charly Ball Work Phone: [facility] Work Phone: Start: 02-02-2024 Registered Recurring DO Benjam in Ball Work Phone: [facility] Work Phone: Start: 02-02-2024 Non-patient / Non-visit DO Riaz danii Ball Work Phone: [facility] Work Phone: Start: 02-02-2024 Non-patient / Non-visit DO Riaz danii Ball Work Phone: [facility] Work Phone: Start: 02-02-2024 End: 02-02-2024 Patient encounter procedure DO Charly Hooper Work Phone: [facility] Start: 02-02-2024 End: 02-02-2024 ambulatory DO Charly Ball Work Phone: [facility] Work Phone: Start: 01-28-2024 End: 01-28-2024 ambulatory MACARENA JACKSONRemedios Echevarria Not Available Start: 01-28-2024 Non-patient / Non-visit DO Riaz Hooper Work Phone: [facility] Work Phone: Start: 01-27-2024 Non-patient / Non-visit DO Riaz Hooper Work Phone: [facility] Work Phone: Start: 01-27-2024 Non-patient / Non-visit DO Riaz Hooper Work Phone: [facility] Work Phone: Start: 01-27-2024 End: 01-27-2024 Patient encounter procedure DO Charly Hooper Work Phone: [facility] Start: 01-27-2024 End: 01-27-2024 ambulatory DO Charly Hooper Work Phone: [facility] Work Phone: Start: 01-27-2024 Registered Recurring DO Benjcarol in Ball Work Phone: [facility] Work Phone: Start: 01-21-2024 Non-patient / Non-visit DO Riaz Hooper Work Phone: [facility] Work Phone: Start: 01-20-2024 End: 01-20-2024 Admission to same day surgery center DO Charly Hooper Work Phone: [facility] [place] Start: 01-20-2024 End: 01-20-2024 ambulatory DO Charly Hooper Work Phone: [facility] Work Phone: Start: 01-14-2024 End: 01-14-2024 ambulatory NOHEMI Jesús TRISTAN Not Available Start: 01-14-2024 End: 01-14-2024 ambulatory JYOTI GRIFFIN Not Available Start: 01-14-2024 Registered Recurring DO Leobardo in Ball Work Phone: [facility] Work Phone: Start: 01-13-2024 Non-patient / Non-visit DO Riaz Hooper Work Phone: [facility] Work Phone: Start: 01-12-2024 End: 01-12-2024 ambulatory DO Charly Hooper Work Phone: [facility] Work Phone: Start: 01-12-2024 End: 01-12-2024 Patient encounter procedure DO Charly Hooper Work Phone: [facility] Work Phone: Start: 01-07-2024 End: 01-07-2024 ambulatory DO Charly Hooper Work Phone: [facility] Work Phone: Start: 01-07-2024 End: 01-07-2024 Patient encounter procedure DO Charly Hooper Work Phone: [facility] Work Phone: Start: 01-07-2024 Registered Recurring DO Leobardo in Ball Work Phone: [facility] Work Phone: Start: 12-31-2023 End: 12-31-2023 ambulatory CHARLY NOWAK Not Available Start: 12-26-2023 End: 12-26-2023 ambulatory CHARLY NOWAK Not Available Start: 12-25-2023 End: 12-25-2023 Admission to same day surgery center DO Charly Ball Work Phone: [facility] [place] Start: 12-25-2023 End: 12-25-2023 ambulatory DO Charly Ball Work Phone: [facility] Work Phone: Start: 12-24-2023 End: 12-24-2023 Patient encounter procedure DO Charly Ball Work Phone: [facility] Work Phone: Start: 12-24-2023 End: 12-24-2023 ambulatory DO Charly Ball Work Phone: [facility] Work Phone: Start: 12-23-2023 End: 12-23-2023 Patient encounter procedure DO Charly Ball Work Phone: [facility] Work Phone: Start: 12-23-2023 End: 12-23-2023 ambulatory DO Charly Ball Work Phone: [facility] Work Phone: Start: 12-23-2023 Encounter for preprocedural laboratory examination Charly Nowak [facility] Start: 12-22-2023 End: 12-22-2023 ambulatory CHARLY NOWAK Not Available Start: 12-17-2023 End: 12-17-2023 ambulatory MATEO Espinosa MAGOMIS Not Available Start: 11-13-2023 End: 11-13-2023 ambulatory [facility] Work Phone: Start: 11-13-2023 End: 11-13-2023 Patient encounter procedure [facility] Work Phone: Start: 10-13-2023 End: 10-13-2023 ambulatory NADJA Griffiths APLING Not Available Start: 10-08-2023 End: 10-08-2023 ambulatory NADJA Griffiths APLING Not Available Start: 08-18-2023 End: 08-19-2023 ambulatory Abner MONIQUE Facility:[facility] Start: 08-18-2023 End: 08-18-2023 Patient encounter procedure Abner MONIQUE [facility] Start: 06-18-2023 End: 06-18-2023 ambulatory NADJA B APLING Not Available Start: 06-04-2023 End: 06-04-2023 ambulatory NADJA B APLING Not Available Start: 05-07-2023 End: 05-07-2023 ambulatory ADOLFO [facility] Start: 04-09-2023 End: 04-09-2023 ambulatory VINCENT [facility] Start: 09-25-2022 End: 09-25-2022 ambulatory STELLA ATWOOD [facility] Start: 08-09-2022 End: 08-09-2022 Patient encounter procedure Abner MONIQUE [facility] Start: 07-16-2022 End: 07-17-[address] ABNER MONIQUE Facility:[facility] Start: 05-08-2022 End: 05-09-2022 ambulatory STELLA ATWOOD Facility:[facility] Start: 03-20-2022 End: 03-21-2022 ambulatory CHARLY HOOPER Facility:[facility] Start: 2022 Encounter for preprocedural laboratory examination THEO VIRGEN [facility] Start: 03-18-2022 End: [address] CHARLY HOOPER Facility:[facility] Start: 03-18-2022 End: 2022 Encounter for preprocedural laboratory examination DR CHARLY HOOPER Facility:[facility] Start: 03-05-2022 End: 03-06-2022 ambulatory CHARLY HOOPER Facility:[facility] Start: 12-27-2021 End: 12-28-[address] CHARLY HOOPER Facility:[facility] Start: 08-14-2021 End: 08-15-[address] CHARLY HOOPER Facility:[facility] Procedures Date Procedure Procedure Detail Performing Clinician Start: 01-20-2024 Plain chest X-ray DO Be amparo Hooper Work Phone: Start: 01-20-2024 OR Infusaport Insertion/Removal (Not Applicable) DO Charly Hooper Work Phone: Start: 12-25-2023 Direct laryngoscopy with biopsy DO Charly Hooper Work Phone: Start: 12-24-2023 Positron emission to mography with computed tomography DO Charly Hooper Work Phone: Start: 07-16-[address] INOCENCIO MONIQUE Comment on above: Performed By: #### P SAD #### [facility] [address] [place] [address] Dr. Edilson Iyer Start: 09-09-2019 Implantation of [...] of hernia repair Maria Elena MONIQUE Vasectomy Abnertania MONIQUE Plan of Treatment Date Care Activity Detail Author Start: 07-19-2024 End: 07-19-2024 Patient encounter procedure 07/19/2024 1:30 PM EST Office Visit [facility] [address] [place] [id number] Charly Nowak DO [address] [place] [address] [facility] Start: 06-10-[address] [facility] Work Phone: Start: 06-01-2024 End: 06-01-2024 Patient encounter procedure 06/01/2024 8:45 AM EST Office Visit [facility] [address] [place] [id number] Charly Nowak, DO [address] [place] [address] [facility] GARCIA DEYSI Start: 05-10-2024 End: 05-10-2024 Patient encounter procedure [facility] Comment on above: Arrived Start: 03-30-2024 End: 03-30-2024 Patient encounter procedure 03/30/2024 9:15 AM EDT Office Visit [facility] [address] [place] [phone] Charly Nowak, DO [address] [place] [address] Arrived [facility] Comment on above: Arrived Start: 03-21-2024 Influenza vaccination Influenz a Vaccine (#1) [facility] Start: 03-02-2024 Patient referral to dietitian [facility] Start: 03-02-2024 [facility] Start: 02-25-2024 [facility] Start: 02-24-2024 [facility] Start: 02-19-2024 [facility] Start: 02-17-2024 Comprehensive metabo lic 2000 panel - Serum or Plasma [facility] Start: 02-17-2024 End: 02-18-2024 [facility] Start: 02-16-2024 [facility] Start: 02-10-2024 [facility] Start: 02-03-2024 [facility] Start: 01-27-2024 [facility] Start: 01-20-2024 [facility] Start: 01-20-2024 [facility] Start: 01-07-[address] [facility] Work Phone: Start: 12-25-2023 [facility] Start: 12-25-2023 [facility] Start: 1965 Screening for malign ant neoplasm of colon [facility] Albumin/Globulin ratio [facility] Anion gap measurement [facility] Basophils [#/volume] in Blood by Automated count [facility] Basophils/100 leukoc ytes in Blood by Automated count [facility] Comprehensive metabo lic 1999 panel - Serum or Plasma [facility] Comprehensive metabo lic 1999 panel - Serum or Plasma [facility] Comprehensive metabo lic 1999 panel - Serum or Plasma [facility] Comprehensive metabo lic 1999 panel - Serum or Plasma [facility] Comprehensive metabo lic 1999 panel - Serum or Plasma [facility] Comprehensive metabo lic 1999 panel - Serum or Plasma [facility] Computed tomography for radiotherapy planning [facility] Eosinophils/100 leukocytes in Blood by Automated count [facility] Erythrocyte distribu tion width [Ratio] by Automated count [facility] Erythrocytes [#/volu me] in Blood [facility] Globulin [Mass/volum e] in Serum [facility] Hematocrit [Volume Fraction] of Blood [facility] Hemoglobin [Mass/vol ume] in Blood [facility] Leukocytes [#/volume ] corrected for nucleated erythrocytes in Blood by Automated coun [facility] Leukocytes [#/volume ] in Blood [facility] Lymphocytes [#/volum e] in Blood by Automated count [facility] Lymphocytes/100 leukocytes in Blood by Automated count [facility] MCH [Entitic mass] b y Automated count [facility] MCHC [Mass/volume] b y Automated count [facility] MCV [Entitic volume] by Automated count [facility] Monocytes [#/volume] in Blood by Automated count [facility] Monocytes/100 leukoc ytes in Blood by Automated count [facility] Neutrophils [#/volum e] in Blood by Automated count [facility] Neutrophils/100 leukocytes in Blood by Automated count [facility] Nucleated erythrocyt es [Presence] in Blood by Automated count [facility] Patient Education [facility] Work Phone: Patient referral [facility] Work Phone: Platelet mean volume [Entitic volume] in Blood by Automated count [facility] Platelets [#/volume] in Blood [facility] US Heart Transthoracic [facility] US Thyroid gland [facility] Immunizations Immunization Date Immunization Notes Care Provider Fa cility 04-04-2022 COVID-19 mRNA Bivale nt Booster (Pfizer) DO Charly Hooper Work Phone: [facility] 04-04-2022 Moderna Bivalent Booster Vaccination Charly Nowak DO Work Phone: [facility] 05-05-2021 COVID-19 mRNA, Comirnaty (Pfizer) DO Charly Hooper Work Phone: [facility] 11-03-2020 COVID-19, mRNA, LNP- S, PF, 30 mcg/0.3 mL dose Abnertania MONIQUE [facility] Comment on above: Reason for Medicatio n: Prophylaxis 09-22-2020 COVID-19, mRNA, LNP- S, PF, 30 mcg/0.3 mL dose Abner MONIQUE [facility] Comment on above: Reason for Medicatio n: Prophylaxis 07-04-2020 diphtheria, tetanus toxoids and acellular pertussis vaccine, unspecified formulation [facility] 07-04-2020 tetanus toxoid, redu devonte diphtheria toxoid, and acellular pertussis vaccine, adsorbed DO Charly Hooper Work Phone: [facility] 05-03-2020 influenza, seasonal, injectable DO Charly Hooper Work Phone: [facility] 05-03-2020 influenza virus vaccine, unspecified formulation Charly Nowak DO Work Phone: [facility] 04-20-2020 influenza, injectabl e, quadrivalent, preservative free DO Charly Hooper Work Phone: [facility] 04-20-2019 influenza virus vaccine, live, attenuated, for intranasal use Abner MONIQUE [facility] 04-29-2018 influenza virus vaccine, unspecified formulation [facility] Payers Date Payer Category Payer Self-pay 2022 Unknown [id number] 2022 [employer] Blue Shield 1.2.8 [id number] 2022 Unknown [id number] [id number] 15 2022 Unknown [id number] 2019 Unknown [id number] 1966 Unknown [id number] 2.16.8 40.1.383567.3.579.2.647 1966 Unknown [id number] 2.16.8 40.1.422068.3.579.2.647 1966 Unknown [id number] 2.16.84 0.1.971432.3.579.2.593 1966 Unknown [id number] 2.16.84 0.1.145899.3.579.2.593 1966 Unknown [id number] 2.16.84 0.1.437953.3.579.2.593 1966 Unknown [id number] 2.16.84 0.1.380529.3.579.2.593 1966 Unknown [id number] 2.16.84 0.1.634799.3.579.2.593 1966 Unknown [id number] 2.16.8 40.1.209437.3.579.2.727 1966 Unknown [id number] 2.16.8 40.1.648903.3.579.2.727 1966 Unknown [id number] 2.16.84 0.1.289466.3.579.2.1258 1966 Unknown [id number] 2.16.84 0.1.734023.3.579.2.1258 1966 Unknown [id number] 2.16.84 0.1.305666.3.579.2.1258 1966 Unknown [id number] 2.16.84 0.1.945303.3.579.2.1258 1966 Unknown [id number] 2.16.84 0.1.047537.3.579.2.1258 1966 Unknown [id number] 2.16.84 0.1.686377.3.579.2.1258 1966 Unknown [id number] 2.16.84 0.1.958445.3.579.2.1258 1966 Unknown [id number] 2.16.84 0.1.673407.3.579.2.1258 1966 Unknown [id number] 2.16.84 0.1.008161.3.579.2.1258 1966 Unknown [id number] 2.16.84 0.1.412314.3.579.2.1258 1966 Unknown [id number] 2.16.84 0.1.649958.3.579.2.125 1966 Unknown [id number] 2.16.84 0.1.633976.3.579.2.1258 1966 Unknown [id number] 2.16.84 0.1.565812.3.579.2.1258 1966 Unknown [id number] 2.16.840 .1.669157.3.579.2.1258 1966 Unknown [id number] 2.16.840. 1.162674.3.579.2.1259 1959 Unknown [id number] Unknown [place] [employer] [id number] Unknown [place] [employer] [id number] Unknown [id number] 2.16.8 40.1.068496.3.579.2.531 Unknown [id number] 2.16.8 40.1.101184.3.579.2.531 Unknown [id number] 2.16.8 40.1.240779.3.579.2.531 Unknown [id number] 2.16.8 40.1.360039.3.579.2.531 Unknown [id number] 2.16.8 40.1.929236.3.579.2.531 Unknown [id number] 2.16.8 40.1.334821.3.579.2.531 Unknown [id number] 2.16.8 40.1.879106.3.579.2.531 Unknown [id number] 2.16.8 40.1.060552.3.579.2.531 Unknown [id number] 2.16.8 40.1.878635.3.579.2.531 Unknown [id number] 2.16.8 40.1.066988.3.579.2.531 Unknown [id number] 2.16.8 40.1.434767.3.579.2.531 Unknown [id number] 2.16.8 40.1.944859.3.579.2.531 Unknown [id number] 2.16.8 40.1.018580.3.579.2.531 Social History Date Type Detail Facility Start: 07-19-2020 End: 12-31-2023 Tobacco smoking status Ex-smoker (finding) [facility] Tobacco smoking status Never [facility] Start: 02-17-2024 End: 03-30-2024 Sex Assigned At Male [facility] Start: 11-13-2023 Tobacco smoking stat us WAIS Never smoked tobacco (finding) [facility] Start: 1965 Sex Assigned At Male F [facility] Start: 07-21-1987 End: 07-21-1992 History of tobacco use Current smoker [facility] Start: 07-21-1987 End: 07-21-1992 History of tobacco use Cigarette Smoker [facility] Start: 12-31-2023 End: 03-30-2024 Cigarettes smoked current (pack per day) - Reported 1 [facility] Start: 12-31-2023 Tobacco use and exposure Smokeless tobacco non-user [facility] Start: 02-17-2024 End: 03-30-2024 Alcoholic beverage intake Current drinker of alcohol (finding) [facility] Start: 01-11-2023 Alcohol Comment 5 or 6 drinks, 4 or more times a week [facility] Start: 1965 Sex assigned at Not on file N [facility] Start: 06-10-2024 Sex Male (finding) [facility] Medical Equipment Procedure Code Equipment Code Equipment Origin al Text Equipment Identifier Dates Insertion of central venous catheter (CVC) with subcutaneous port for chemotherapy Vascular port/catheter ()[id number] [facility] Start: 01-20-2024 Goals Date Patient Goal Desired Activity /State Functional Status Date Assessment Result Facility 08-18-2023 Functional Status N/A [facility] 08-09-2022 Functional Status N/A [facility] Clinical Notes 08-14-2021 to 06-01-2024 Charly Nowak, DO - 06/01/2024 8:45 AM Isamar Nowak, DO - 05/10/2024 1:45 PM EDNarayan Nowak, DO - 03/30/2024 9:15 AM EDT Note Date & Type Note Facility 06-01-2024 History of Presen t illness Narrative Subjective Patient ID: HPI Patient presents today to reinspect his right-sided tongue lesion. Review of Systems ROS The specialty specific review of systems is noncontributory except for that recorded in the intake questionnaire and /or described in the history of present illness. Objective ENT Physical Exam Physical Exam Constitutional: Appearance: Normal appearance. HENT: Head: Atraumatic. Ears: External ear shows no abnormality Bilateral ear canals are clear Tympanic membranes intact, no evidence of middle ear fluid or other pathology. Nose: External nose appears to be normal Nares patent. Septal deviation to the right No evidence of polyp, mass or pus bilaterally. Oral Cavity: No evidence of trismus Lips appear normal Dental good Examination of the right posterior lateral tongue by visualization just shows a small area a less than attending irregular rate larynx. By palpation there is a little bit of thickness. By this all correlates to his occlusive surface of his teeth. Nothing ulcerated. floor of mouth mucosa clear. Buccal mucosa shows no evidence of ulceration, mass or other abnormality Hard palate soft palate mucosa intact with no evidence of mass, ulceration or other abnormality Uvula of normal size and configuration Oropharynx: Tonsils Posterior pharyngeal wall Thorough examination does not move either new or recurrent tumor. Neck: Significant submental postradiation edema Thyroid without evidence of thyromegaly or mass. No cervical lymphadenopathy present. Cardiovascular: Rate and Rhythm: Normal rate and regular rhythm. . Skin: General: Skin is warm and dry. Neurological: General: No focal deficit present. Mental Status: alert and oriented to person, place, and time. Assessment/Plan Alen was seen today for cancer. Diagnoses and all orders for this visit: Lesion of tongue (Primary) Comments: I am not tremendously concerned about this. I am going to take a look at again in 6 weeks with his routine visit. Malignant neoplasm of oropharynx (CMS/HCC) Comments: No evidence of disease on today's exam History of head and neck radiation Comments: See above I will look at the tongue lesion again in 6 weeks when I see him, I told him that if for some reason the gets larger, or bleeds I should see him before then. documented in this encounter [facility] 05-10-2024 History of Presen t illness Narrative Subjective Patient ID: HPI Patient presents today for cancer surveillance. 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 He finished therapy about 2 months ago. He is recovering well. He does have a sore on the right lateral side of his tongue that is not healing. Review of Systems ROS The specialty specific review of systems is noncontributory except for that recorded in the intake questionnaire and /or described in the history of present illness. Objective ENT Physical Exam Physical Exam Constitutional: Appearance: Normal appearance. HENT: Head: Atraumatic. Ears: External ear shows no abnormality Bilateral ear canals are clear Tympanic membranes intact, no evidence of middle ear fluid or other pathology. Nose: External nose appears to be normal Nares patent. Septal deviation to the left No evidence of polyp, mass or pus bilaterally. Oral Cavity: No evidence of trismus Lips appear normal Dental decent There is a small area on the lateral right side of the tongue posteriorly that is tender appearance really not going to find lesion. More mucositis than anything else. Buccal mucosa shows no evidence of ulceration, mass or other abnormality Hard palate soft palate mucosa intact with no evidence of mass, ulceration or other abnormality Uvula of normal size and configuration Oropharynx: Thorough examination of the oral cavity oropharynx shows nothing suggestive of new or recurrent tumor. Neck: No evidence of palpable abnormality Thyroid without evidence of thyromegaly or mass. No cervical lymphadenopathy present. Cardiovascular: Rate and Rhythm: Normal rate and regular rhythm. . Skin: General: Skin is warm and dry. Neurological: General: No focal deficit present. Mental Status: alert and oriented to person, place, and time. Assessment/Plan Alen was seen today for cancer. Diagnoses and all orders for this visit: Lesion of tongue (Primary) Comments: I am going to have him use Kenalog and Orabase on the tongue lesion. Malignant neoplasm of oropharynx (CMS/HCC) Comments: There is no evidence of persistent or new disease on today's exam, I will see him back in a couple weeks Orders: - triamcinolone (Kenalog) 0.1 % oral paste; Use in the mouth or throat 3 (three) times a day Apply to right tongue History of head and neck radiation If this does not work, I may want to inject this with some Kenalog. documented in this encounter [facility] 03-30-2024 History of Presen t illness Narrative Subjective Patient ID: HPI Patient presents today for follow-up. 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 He is doing well. Finished up therapy about a month ago. Review of Systems ROS The specialty specific review of systems is noncontributory except for that recorded in the intake questionnaire and /or described in the history of present illness. Objective ENT Physical Exam Physical Exam Constitutional: Appearance: Normal appearance. HENT: Head: Atraumatic. Ears: External ear shows no abnormality Bilateral ear canals are clear Tympanic membranes intact, no evidence of middle ear fluid or other pathology. Nose: External nose appears to be normal Nares patent. Septal deviation to the right No evidence of polyp, mass or pus bilaterally. Oral Cavity: No evidence of trismus Lips appear normal Dental decent Tongue of normal size and configuration, floor of mouth mucosa clear. Buccal mucosa shows no evidence of ulceration, mass or other abnormality Hard palate soft palate mucosa intact with no evidence of mass, ulceration or other abnormality Uvula of normal size and configuration Oropharynx: Mild edema, nothing suggestive of tumor Neck: No evidence of palpable abnormality Thyroid without evidence of thyromegaly or mass. No cervical lymphadenopathy present. Cardiovascular: Rate and Rhythm: Normal rate and regular rhythm. . Skin: General: Skin is warm and dry. Neurological: General: No focal deficit present. Mental Status: alert and oriented to person, place, and time. Assessment/Plan Alen was seen today for cancer. 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) History of head and neck radiation documented in this encounter [facility] 03-18-2024 Evaluation note Diagnosis Onset Date Resolution Oropharyngeal cancer acute Augu 2023 9:11am Oropharyngeal cancer acute Mar 9:30am Oropharyngeal cancer acute Mar 9:36am Oropharyngeal cancer acute 2023 11:28am [facility] Work Phone: 1(985) 179-988008-19-2024 Progress note Author Mili Squires [facility] March 08, 2024 9:57am Note Date/Time March 08, 2024 9: 14am [facility] [address] [place] [address] Palliative Medicine Encounter Patient: Alen Calderon MR#: [id number] : 1965 Acct:[id number] Age/Sex: 58 / M Copies to: DO [...] Alcohol Substance Abuse Comment: 6-8 beers daily Bowman Symptom Assessment Scale Pain: moderate mouth pain, [...] chemoradiation with minimal use of opioid and non- opioid medication. Mouth and right side of tongue [...] recorder, note dictated by Mili Squires APRN, DIRECTOR INSTRUCTIONAL MATERIAL-C Dictated By: Mili Squires APRN DD/ 0916 Signed By: <Electronically signed by MIGUEL Squires> 03/08/[address] [facility] Work Phone: 1(436) 450-850008-12-2024 Progress note Author Mili Squires [facility] March 01, 2024 9:47am Note Date/Time March 01, 2024 9: 16am [facility] [address] [place] [address] Palliative Medicine Encounter Patient: Alen Calderon MR#: [id number] : 1965 Acct:[id number] Age/Sex: 58 / M Copies to: DO Mili Light, DIRECTOR OF PULMONARY UNIT~ HPI Date of Visit Date of Visit: [...] Alcohol Substance Abuse Comment: 6-8 beers daily Bowman Symptom Assessment Scale Pain: increased mouth and [...] recorder, note dictated by Mili Squires APRN, DIRECTOR INSTRUCTIONAL MATERIAL-C Dictated By: Mili Squires APRN DD/ 4 Signed By: <Electronically signed by MIGUEL Squires> 03/01/24 0947 [facility] Work Phone: 1(820) 619-502708-07-2024 Progress note Author Karly Nielsen [facility] February 25, 2024 12:51pm Note Date/Time February 25, 2024 12: 07pm [facility] [place] [address] Cancer Center Note Signed Patient: Alen Calderon MR#: [id number] : 1965 Acct:[id number] Age/Sex: 58 / M Type: ANDREW AMB [...] fevers, chills, or other new concerns otherwise. 02/17/24 He presents for week for weekly cisplatin [...] <Electronically signed by Karly Nielsen MD> 02/25/24 1251 [facility] Work Phone: 1(502) 895-366508-05-2024 Progress note Author Mili Squires [facility] February 23, 2024 9:46am Note Date/Time February 23, 2024 9:1 7am [facility] [address] [place] [address] Palliative Medicine Encounter Patient: Alen Calderon MR#: [id number] : 1965 Acct:[id number] Age/Sex: 58 / M Copies to: DO [...] History Father Prostate cancer Mother Cancer Legacy Fam Problem: Diagnosed with Cancer Social History Smoking Status: Former smoker Tobacco Type: cigarettes Substance Use Type: Alcohol Substance Abuse Comment: 6-8 beers daily Bowman Symptom Assessment Scale Pain: throat pain tolerable, [...] Reports improvement in sleep with cyclobenzaprine Continue Hkixxtdbfmdfaxh42 mg at bedtime (3) Nausea: Plan: Reports mild occasional nausea, relieved with zofran ODT Continue Zofran ODT PRN without change F/U here one week at time of radiation (4) Oropharyngeal cancer: Problem Comment: Dx: 12/2023 Chemotherapy/Radiation therapy Plan: Continues concurrent chemoradiation Attestation: The above note written by Nathalie Angel MA acting as human recorder, note dictated by Mili Squires APRN, DIRECTOR INSTRUCTIONAL MATERIAL-C Dictated By: Mili Squires APRN DD/ 6 Signed By: <Electronically signed by MIGUEL Squires> 02/23/[address] [facility] Work Phone: 1(143) 570-843207-29-2024 Progress note Author Mili Squires [facility] February 16, 2024 1:18pm Note Date/Time February 16, 2024 9:21 am [facility] [address] [place] [address] Palliative Medicine Encounter Patient: Alen Calderon MR#: [id number] : 1965 Acct:[id number] Age/Sex: 58 / M Copies to: DO [...] 3-4x day. and tylenol PRN, Magic Mouthwash Maria Stein fatigued on Friday but the weekend provided [...] FamHx Problem: Diagnosed with Cancer Social History Marital Status: Smoking Status: Former smoker Tobacco Type: cigarettes Substance Use Type: Alcohol Substance Abuse Comment: 6-8 beers daily Bowman Symptom Assessment Scale Pain: sore throat / [...] recorder, note dictated by Mili Squires APRN, DIRECTOR INSTRUCTIONAL MATERIAL-C Dictated By: Mili Squires APRN DD/ 0910 Signed By: <Electronically signed by MIGUEL Squires> 02/16/[address] [facility] Work Phone: 1(642) 107-360607-22-2024 Progress note Author Mili Squires [facility] February 09, 2024 9:15am Note Date/Time February 09, 2024 9:07 am [facility] [address] [place] [address] Palliative Medicine Encounter Patient: Alen Calderon MR#: [id number] : 1965 Acct:[id number] Age/Sex: 58 / M Copies to: Charly [...] #90 tabs Is patient having pain?: No PMFSH Medical History 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 [...] Alcohol Substance Abuse Comment: 6-8 beers daily Bowman Symptom Assessment Scale Pain: intermittent minor sore [...] recorder, note dictated by Mili Squires APRN, DIRECTOR INSTRUCTIONAL MATERIAL-C Dictated By: Mili Squires APRN DD/ Signed By: <Electronically signed by MIGUEL Squires> 02/09/[address] [facility] Work Phone: 1(287) 793-294307-15-2024 Progress note Author Mili Squires [facility] February 02, 2024 9:23am Note Date/Time February 02, 2024 8:58 am [facility] [address] [place] [address] Palliative Medicine Encounter Patient: Alen Calderon MR#: [id number] : 1965 Acct:[id number] Age/Sex: 58 / M Copies to: DO [...] Alcohol Substance Abuse Comment: 6-8 beers daily Bowman Symptom Assessment Scale Pain: denies Nausea/Vomiting: mild, [...] recorder, note dictated by Mili Squires APRN, DIRECTOR INSTRUCTIONAL MATERIAL-C Dictated By: Mili Squires APRN DD/ 7 Signed By: <Electronically signed by MIGUEL Squires> 02/02/24922 [facility] Work Phone: 1(105) 434-774706-19-2024 Progress note Author Karly Nielsen [facility] January 07, 2024 2:56pm Note Date/Time January 07, 2024 1:49 pm [facility] [place] [address] Cancer Center Note Signed Patient: Alen Calderon MR#: [id number] : 1965 Acct:[id number] Age/Sex: 58 / M Type: REG AMB [...] Patient will be have CT/SIM next . [facility] Medical History Medical History (Updated 01/06/24 @ [...] History Father Prostate cancer Mother Cancer Legacy [facility] Problem: Diagnosed with Cancer Social History Social [...] <Electronically signed by Karly Nielsen MD> 01/07/24 7696 [facility] Work Phone: 1([phone]) 169-790006-19-2024 Progress note Author Marbella Muñoz [facility] January 07, 2024 3:28pm Note Date/Time January 07, 2024 1:08 pm [facility] [place] [address] Cancer Center Note Signed Patient: Alen Calderon MR#: [id number] 88 : 1965 Acct:[id number] Age/Sex: 58 / M Type: REG AMB [...] Fortunately patient is seen a dentist in [place] we will obtain clearance. I provided a [...] by his . He works for a [employer] in [place]. Anticipates taking FMLA for treatment. Denies significant [...] He denies pain and is eating well. [facility] Medical History Medical History (Updated 01/06/24 @ [...] signed by Marbella Muñoz MD> 01/07/24 1528 [facility] Work Phone: 1([phone]) 282-199806-19-2024 Hospital Discharge instructionsAmbulatory Orders* Referral to Audiology Time Frame: 01/07/24, Location: None Selected * Referral to General Surgery Time Frame: 01/07/24, Location: None Selected [facility] Work Phone: [phone]) [phone] Hospital Discharge instructions Patient Education 08/18/2023 11:39:40 [...] Follow these instructions at home: Medicines Take nmtv-tcg-aielvck and prescription medicines only as told by [...] provider. Document Revised: 10/03/2021 Document Reviewed: 10/03/2021 [employer] Patient Education 2022 [email or web address]. Follow Up Care 08/09/2022 10:17:02 With:KAYDEN URBINA, Abner Mojica, URL Address: [facility] [address] , [place] [address]- [phone] When: Unknown Comments:PSA in 6 mos, f/u in 1 yr w/ repeat PSA [facility] 10-18-2023 NoteUT Electrophysiology Consult Note Reason for [...] to take Eliquis 5 mg twice daily, [id number] 1 for hypertension. Patient's been taking amiodarone has been feeling well on amiodarone with no concern for side effects, but continues to complain of breakthrough episodes per his [employer] mobile. Patient began to take amiodarone around [...] PND, no claudication, Constitut (more content not included)...[facility] 05-07-2023 NotePatient here for 1 mo follow up PAF and hypertension per Anastasiya Molina CNP. Had labs and ECG at last visit on 04/09/2023. Doing very well. Denies chest pain, SOB, palpitations, and bleeding on Eliquis. Review of Systems All other systems reviewed and are negative.[facility] 04-09-2023 NoteUTP CARDIOLOGY PROGRESS NOTE HPI: [...] reviewed and are negative. Prior HPI per Yolanda Atwood NP Atrial Fibrillation Past medical history includes atrial fibrillation. He states he has been feeling well overall. He feels like he has more energy to do things. He denies any c/o CP, dyspnea, palpitations, dizziness/LH, syncope, or bleeding issues. He is wanting to discuss discontinuing his anticoagulation. HPI per Dr. Virgen cc; Afib Pt has taken Amio and also noted sofya lucia edeayolanda that has got better with lasix which [...] 03/12/2018 was exercise treadmi (more content not included)...[facility]09-20-2023 NoteReview of Systems All other systems reviewed and are negative.[facility] 04-09-2023 NoteHypertension well controlled 112/74 Continue norvasc, coreg, losartan, [facility]Un[facility] 04-09-2023 [id number] VASc= Currently pt admits intermittent A fib [...] or SOB. RTC with EP [facility] months[facility] Note Cardiovascular Medicine [facility] [facility] SUBJECTIVE Chief Complaint Patient presents with [...] Comprehensive EP study an (more content not included)...[facility]03-08-2023 NotePatient here for 5 mo follow [...] swelling. All other systems reviewed and are negative.[facility] 08-09-2022 Hospital Discharge instructions Patient Education [...] urethra. Follow these instructions at home: Take nrtb-hvn-bvmcpbd and prescription medicines only as told by [...] 07/07/2006 Document Revised: 06/01/2019 Document Reviewed: 08/11/2017 [employer] Patient Education 2020 [email or web address]. Follow Up Care 07/23/2021 10:55:23 With:KAYDEN URBINA, Abner Mojica, URL Address: [address] [place] [address]- When: Unknown Comments:1 year w/ PSA [facility] 01-25-2022 NoteHOME SLEEP STUDY Ordering Physician: [...] insomnia or depressions. 3. Please correlate clinically.[facility] [place] [facility] Future Appointments Appointment Date:08/04/2023 08:45:00 AM Scheduled Provider:Abner MONIQUE MD Location:[facility] Appointment Type:URO Office Visit Diagnostic Tests Pending * PSA Total 06/20/23 [facility] evaluation + Plan note Future Appointments Appointment Date:08/16/2024 08:45:00 AM Scheduled Provider:Abner MONIQUE MD Location:[facility] Appointment Type:URO Office Visit Diagnostic Tests Pending * PSA Total 08/18/23 [facility] evaleiipby note* Diagnosis Onset Date Resolution Status Maxillary sinusitis acute Swelling, mass, or lump in head and neck [facility] Work Phone: evaluation note* Diagnosis Onset Date Resolution Status Maxillary sinusitis acute Swelling, mass, or lump in head and neck acute Oropharyngeal cancer acute Oropharyngeal cancer [facility] Work Phone: evaluation note* Diagnosis Onset Date Resolution Status Maxillary sinusitis acute Swelling, mass, or lump in head and neck acute Oropharyngeal cancer acute Oropharyngeal cancer acute Acute insomnia acute Oropharyngeal cancer [facility] Work Phone: evaluation note* Diagnosis Onset Date Resolution Status Maxillary sinusitis acute Swelling, mass, or lump in head and neck acute Oropharyngeal cancer acute Oropharyngeal cancer acute Acute insomnia acute Oropharyngeal cancer acute Cancer associated pain acute Encounter for palliative care acute Oropharyngeal cancer [facility] Work Phone: evaluation note* Diagnosis Onset Date Resolution Status Maxillary sinusitis acute Swelling, mass, or lump in head and neck acute Oropharyngeal cancer acute Oropharyngeal cancer acute Acute insomnia acute Oropharyngeal cancer acute Cancer associated pain acute Encounter for palliative care acute Oropharyngeal cancer acute Cancer associated pain acute Oropharyngeal cancer [facility] Work Phone: evaluation note* Diagnosis [...] Cancer associated pain acute Oropharyngeal cancer acute [facility] Work Phone: evaluation note* Diagnosis Onset Date Resolution Status Oropharyngeal cancer acute Oropharyngeal cancer acute Acute insomnia acute Oropharyngeal cancer acute Cancer associated pain acute Encounter for palliative care acute Oropharyngeal cancer acute Cancer associated pain acute Oropharyngeal cancer acute Oropharyngeal cancer acute Cancer associated pain acute Oropharyngeal cancer acute Cancer associated pain acute Oropharyngeal cancer acute [facility] Work Phone: evaluation note* Diagnosis Onset Date [...] pain acute Nausea acute Oropharyngeal cancer acute [facility] Work Phone: evaluation note* Diagnosis Onset Date [...] acute Oropharyngeal cancer acute Oropharyngeal cancer acute [facility] Work Phone: evaluation note* Diagnosis Onset [...] Cancer associated pain acute Oropharyngeal cancer acute [facility] Work Phone: evaluation note* Diagnosis Onset Date [...] Cancer associated pain acute Oropharyngeal cancer acute [facility] Work Phone: evaluation note* Diagnosis Onset Date [...] acute Oropharyngeal cancer acute Oropharyngeal cancer acute [facility] Work Phone: evaluation note* Diagnosis Onset Date Resolution Status Acute insomnia acute Oropharyngeal cancer acute Cancer [...] acute Oropharyngeal cancer acute Oropharyngeal cancer acute Oropharyngeal cancer acute Oropharyngeal cancer acute [facility] Work Phone: evaluation note* Diagnosis Lesion of tongue- Primary Malignant neoplasm of oropharynx (CMS/HCC) Malignant neoplasm of oropharynx, unspecified site History of head and neck radiation documented in this encounter [facility] HealthcareEvaluation note* Diagnosis Lesion of tongue- Primary Malignant neoplasm of oropharynx (CMS/HCC) Malignant neoplasm of oropharynx, unspecified site History of head and neck radiation documented in this encounter [facility] HealthcareEvaluation note* Diagnosis Malignant neoplasm of oropharynx (CMS/HCC)- Primary Malignant neoplasm of oropharynx, unspecified site 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) History of head and neck radiation documented in this encounter [facility] HealthcareHospital course Narrative No data available for this section [facility] Hospital Discharge instructions Additional Instructions DISCHARGE [...] directed for pain unless a prescription was provided.[facility] Work Phone: Hospital Discharge instructionsAmbulatory Orders* Referral to General Surgery Time Frame: 06/10/24, Location: None Selected [facility] Work Phone: Progress note No data available for this section [facility] progress note Author Karly Nielsen [facility] April 08, 2024 9:59am Note Date/Time April 08, 2024 9:33am [facility] [place] [address] Cancer Center Note Signed Patient: Alen Calderon MR#: [id number] : 1965 Acct:[id number] Age/Sex: 59 / M Type: REG AMB Date of Service: 04/08/24 Copies to: MADIHA Light Assessment & Plan A/P (1) Oropharyngeal cancer: [...] swabs given to him by radiation oncology. 03/18/24: He completed 6 weeks of the weekly Cisplatin. His week 5 of the cisplatin was on02/24/2024. The plan is to give him 6 weeks total of cisplatin per his request due to oral sores and nausea and needed IV fluid for dehydration. Week 6 was given on 03/02/24. He has 11 days total of radiation left including today. He has mouth sore still as of today 03/18/24. Labs on 03/15/24 revealed neutropenia with WBC 3.1, hgb 9.8 a drop from 12.9.plt is normal. ANC 2.2., K was low 3.0 and mag 1.0, given IV KCl and mag on 03/17/24. He denied any bleeding anywhere and denied any melena. He has been taking the Klor- Con 10 mill equivalent once daily since yesterday. The was given 40 mEq ofKCl and 60 g of IV magnesium on 8 03/17/2024. His main complaint is back also onthe right side of the tongue that has been there for 2 weeks now. He finished his radiation on 03/11/2024 and finished last cisplatin on 03/02/2024. 04/08/2024: Patient is here for evaluation 5 weeks after completing his concurrent radiationon 03/02/2024 for his oropharyngeal cancer. Patient still with the very sensitive oral mucosa and months soreness without open sores but small sore in the right tongue and very erythematous oral pharyngeal mucosa. He still eating soft food but not citric juices or fruits. No dysphagia at this point. He is taking his potassium pills bldm-fjv-surpriy 2 pills daily. He is taking his magnesium pill as well. His magnesium is 1.5 and potassium is 3.7. His CBC still consistent with mild stable anemia and mild leukopenia. He denied any fevers or chills and denies any bleeding from any source. He saw ENT and they had her evaluation is negative for any residual disease or recurrent disease. The plan is to see them back in 6 weeks. Plan: Continue observation for his history of oropharyngeal cancer. Dr. Muñoz with the determined an order his follow-up imaging. Continue yyig-klq-boqluoj potassium pills 1-2 daily until he started eating 1 banana daily consumption potassium pills. For the hypomagnesemia we will give gave him 3-4 g of IV magnesium. Continue oral magnesium ijeu-jun-wzrokob to take it once a day. Repeat CBC CMP magnesium in 1 month in 2 months and see him in 2 months. Patient Instructions: magnesium today cbc,cmp,mg monthly return 2 months CHEMO PLAN Treatment Plan Cisplatin 40mg/m2 Weekly with Radiation 1000 Criteria Clinical Indication No Indication Cycle Number Last Admin 1 of 1 Completed Cycle Day Next Admin No Active Chemotherapy History of Present Illness [...] fevers, chills, or other new concerns otherwise. 02/17/24 He presents for week for weekly cisplatin [...] swabs given to him by radiation oncology. 03/18/24: he completed 6 weeks of the weekly Cisplatin. His week 5 of the cisplatin was on02/24/2024. The plan is to give him 6 weeks total of cisplatin per his request due to oral sores and nausea and needed IV fluid for dehydration. Week 6 was given on 03/02/24. He has 11 days total of radiation left including today. He has mouth sore still as of today 03/18/24. Labs on 03/15/24 revealed neutropenia with WBC 3.1, hgb 9.8 a drop from 12.9.plt is normal. ANC 2.2., K was low 3.0 and mag 1.0, given IV KCl and mag on 03/17/24. He denied any bleeding anywhere and denied any melena. He has been taking the Klor- Con 10 mill equivalent once daily since yesterday. The was given 40 mEq ofKCl and 60 g of IV magnesium on 8 03/17/2024. His main complaint is back also onthe right side of the tongue that has been there for 2 weeks now. He finished his radiation on 03/11/2024 and finished last cisplatin on 03/02/2024. 04/08/2024: Patient is here for evaluation 5 weeks after completing his concurrent radiationon 03/02/2024 for his oropharyngeal cancer. Patient still with the very sensitive oral mucosa and months soreness without open sores but small sore in the right tongue and very erythematous oral pharyngeal mucosa. He still eating soft food but not citric juices or fruits. No dysphagia at this point. He is taking his potassium pills ypjs-nuv-ubjrkdm 2 pills daily. He is taking his magnesium pill as well. His magnesium is 1.5 and potassium is 3.7. His CBC still consistent with mild stable anemia and mild leukopenia. He denied any fevers or chills and denies any bleeding from any source. He saw ENT and they had her evaluation is negative for any residual disease or recurrent disease. The plan is to see them back in 6 weeks. Intake Vitals/Pain Assessment 04/08/24 09:34 Height 5 ft 10 in Weight 96.162 kg BMI 30.4 Body Fat % 44.45 BP 169/97 H Blood Pressure Location Rt brachial Position Sitting Pulse 79 Pulse Source NIBP Respiration 20 Pulse Oximetry (%) 98 Oxygen Delivery Method room air Are you having pain? Yes Pain Location mouth Intake Visit Reasons: Follow Up Allergies acetaminophen [Percocet] Allergy (Unknown, Verified 03/18/24 09:18) rash oxycodone [Percocet] Allergy (Unknown, Verified 03/18/24 09:18) rash - Last Reconciled 04/08/24 by Tita Toney amiodarone 200 mg PO .every other day amlodipine 10 mg PO QAM apixaban (Eliquis) 5 mg PO BID carvedilol 25 mg PO BID cyclobenzaprine 10 mg PO QHS fluconazole (Diflucan) 200 mg PO DAILY furosemide 40 mg PO QAM ibuprofen 600 mg PO Q4-6H PRN 3 days losartan 100 mg PO QAM Magic Mouthwash w/Lidocaine 240 mL Bottle 5 mL PO QID PRN mometasone 0.1% 1 applic topical DAILY morphine 5 mg (2.5 mL) PO Q4-6H PRN 10 days omeprazole TAKE 1 CAPSULE DAILY ON AN EMPTY STOMACH FOLLOWED IN 30 MINUTES BY BREAKFAST FOR 90 DAYS ondansetron 8 mg PO Q8HR PRN potassium chloride ER 10 mEq PO DAILY prochlorperazine maleate (Compazine) 10 mg PO Q6HR PRN sucralfate 1 g (10 mL) PO BID tramadol 50 mg PO Q6HR PRN 15 days trazodone TAKE 1 TABLET BY MOUTH ONCE DAILY AT BEDTIME NEEDED FOR SLEEP FOR 30 DAYS Gastrointestinal Is the patient taking opioids for pain control?: No Bowel Protocol for Opioids Given: No Bowel Pattern: Regular Bowel Movement Aid(s): None Falls Fall Precaution Measures Taken: Patient in chair Nurse's Note: Patient is here for follow up with both medical and radiation oncology. Patient reports he still has a mouth sore and some pain with swallowing. [facility] Medical History Medical History Oropharyngeal cancer Dx: [...] History Father Prostate cancer Mother Cancer Legacy Fam Problem: Diagnosed with Cancer Social History Social [...] vision changes. He continued to have a big sore on the right tongue and abnormal taste as well as difficulty swallowing. Thoracic: Patient denied any shortness of breath [...] normocephalic atraumatic pupils are equal and round. He has big sore on the right tongue surface. He has also white patches on the tongue consistent with thrush. Neck supple without thyromegaly. Previous ~2cm palpable node on the right side resolved, nontender to palpation. Skin is very erythematous raw and with some laceration as well and the right and left neck. Chest clear to auscultation bilaterally without wheezing [...] Ctr (Med Onc) LAB RESULTS Corrected WBC 3.6 X10E3/uL (4.1-10.5) L 04/06/24 09:46 Hgb 9.9 g/dL (13.0-17.0) L 04/06/24 09:46 Hct 27.6 % (38.8-50.0) L 04/06/24 09:46 MCV 98.8 fl (83.5-101) 04/06/24 09:46 RDW 18.7 % (12.0-14.8) H 04/06/24 09:46 Plt Count 211 x10E3/uL (150-450) 04/06/24 09:46 Sodium 136 mmol/L (136-145) 04/06/24 09:46 Potassium 3.7 mmol/L (3.5-5.1) 04/06/24 09:46 BUN 7 mg/dL (7-25) 04/06/24 09:46 Creatinine 0.91 mg/dL (0.70-1.30) 04/06/24 09:46 Glucose 109 mg/dL (70-100) H 04/06/24 09:46 Est GFR (CKD-EPI) > 60.0 mL/Min 04/06/24 09:46 Calcium 9.3 mg/dL (8.6-10.3) 04/06/24 09:46 Total Bilirubin 0.6 mg/dl (0.3-1.0) 04/06/24 09:46 AST 35 U/L (13-39) 04/06/24 09:46 ALT 29 U/L (7-52) 04/06/24 09:46 Alkaline Phosphatase 45 U/L (34-104) 04/06/24 09:46 Total Protein 6.3 gm/dL (6.4-8.9) L 04/06/24 09:46 Albumin 3.7 gm/dL (3.5-5.7) 04/06/24 09:46 Dictated By: Karly Nielsen MD DD/ Signed By: <Electronically signed by Karly Nielsen MD> 04/08/24 0959 [facility] Work Phone: Progress note Author Marbella Muñoz [facility] April 08, 2024 10:20am Note Date/Time April 08, 2024 10:14am [facility] [place] [address] Cancer Center Note Signed Patient: Alen Calderon MR#: [id number] : 1965 Acct:[id number] Age/Sex: 59 / M Type: REG AMB Date of Service: 04/08/24 Copies to: DO Charly Light DO~ Assessment & Plan (1) Oropharyngeal cancer: Plan: Return to clinic June 2024 with posttreatment PET. 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 March 11, 2024 he completed concurrent chemoradiation to a dose of 69.96 Webb in 33 fractions to the right tonsil and level 2 lymph node with delivery of 52.8Gray to the elective cirilo regions bilateral neck. Returns to clinic today for 1 month follow-up. Exam is HERIBERTO. He does continue to heal and I encouraged him to maintain a bland diet and utilize the Motrin fordiscomfort. Erythema and edema from the radiation should continue to improve over time. We will see him back in June 2024 with posttreatment PET. Orders: Orders PET tumor subq tx strat sb-mt 3 Months 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,unspecified History of Present Illness HPI 58-year-old male [...] tumor board with recommendations for concurrent chemoradiation. March 11, 2024 patient completed 69.96 Webb to the grossly involved disease and52.8 Webb to the bilateral elective neck and 33 fractions with concurrent chemotherapy. Tolerated his treatment with expected side effects. Returns to clinic today for routine 1 month follow-up. Since completion patienthas seen ENT and their exam was HERIBERTO. Today he continues to report pain on the right side of the posterior tongue. He has increased his oral intake but still following and predominantly bland diet. Uses Motrin for pain. Intake Vitals/Pain Assessment 04/08/24 09:34 Height 5 ft 10 in Weight 96.162 kg Intake Visit Reasons: 1 Month Follow Up, H+N Allergies acetaminophen [Percocet] Allergy (Unknown, Verified 03/18/24 09:18) rash oxycodone [Percocet] Allergy (Unknown, Verified 03/18/24 09:18) rash [facility] Medical History Medical History Oropharyngeal cancer Dx: [...] without lesion. Oral tongue is soft, mobile. There is a persistent healing superficial ulceration on the posterior right base of tongue consistent with the radiation field. No concern for recurrence. Neck: Bilateral neck negative for palpable lymphadenopathy. Minimal radiation fibrosis. No residual skin change. CHEST: normal work of breathing on room air. Abdomen: non acute MSK: extremities within normal limits Neuro: grossly intact Results - Cancer Ctr (Rad Onc) LAB RESULTS Total PSA 0.750 ng/mL (0.000-4.000) 02/09/24 09:48 Glucose 109 mg/dL (70-100) H 04/06/24 09:46 BUN 7 mg/dL (7-25) 04/06/24 09:46 Creatinine 0.91 mg/dL (0.70-1.30) 04/06/24 09:46 Est GFR (CKD-EPI) > 60.0 mL/Min 04/06/24 09:46 Sodium 136 mmol/L (136-145) 04/06/24 09:46 Potassium 3.7 mmol/L (3.5-5.1) 04/06/24 09:46 Chloride 99 mmol/L (98-107) 04/06/24 09:46 Carbon Dioxide 30.7 mmol/L (21.0-31.0) 04/06/24 09:46 Anion Gap 10.0 mEq/L (6.0-15.0) 04/06/24 09:46 Calcium 9.3 mg/dL (8.6-10.3) 04/06/24 09:46 Total Protein 6.3 gm/dL (6.4-8.9) L 04/06/24 09:46 Albumin 3.7 gm/dL (3.5-5.7) 04/06/24 09:46 Globulin 2.6 gm/dL 04/06/24 09:46 Albumin/Globulin Ratio 1.4 04/06/24 09:46 Total Bilirubin 0.6 mg/dl (0.3-1.0) 04/06/24 09:46 AST 35 U/L (13-39) 04/06/24 09:46 ALT 29 U/L (7-52) 04/06/24 09:46 Alkaline Phosphatase 45 U/L (34-104) 04/06/24 09:46 Dictated By: Marbella Muñoz MD DD/ 1020 Signed By: <Electronically signed by Marbella Muñoz MD> 04/08/24 1020 [facility] Work Phone: Summary Purpose Family History Relationship Condition Age [...] Recorded Date/ Time Advance Directives No November 12 024 7:59am Advance Directive Response Recorded Date/ Time Advance Directives No December 21 4 12:24pm Advance Directive Response Recorded Date/ Time Advance Directives No December 21 4 11:24am Chief Complaint and Reason for Visit Chief [...] Acute insomnia Cancer associated pain Oropharyngeal cancer Chief Complaint right neck mass C76.0 right neck mass New - Tonsil Cancer NEW - Tonsil CA unable to sleep Tonsil Cancer Oropharyngeal Cancer Tonsil Cancer Tonsil Cancer Tonsil Cancer Tox check Tonsil Cancer Tonsil Cancer 2 wk f/u Tonsil Cancer C10.9 Follow Up Tonsil Cancer Tonsil Cancer Tonsil Cancer 3 Week Follow up Reason for Visit Oropharyngeal cancer Oropharyngeal cancer Acute insomnia Oropharyngeal cancer Cancer associated pain Encounter for palliative care Oropharyngeal cancer Cancer associated pain Oropharyngeal cancer Oropharyngeal cancer Cancer associated pain Oropharyngeal cancer Cancer associated pain Oropharyngeal cancer Oropharyngeal cancer Acute insomnia Cancer associated pain Nausea Oropharyngeal cancer Oropharyngeal cancer Cancer associated pain Oropharyngeal cancer Acute insomnia Cancer associated pain Oropharyngeal cancer Oropharyngeal cancer Chief Complaint unable to sleep Tonsil Cancer Oropharyngeal Cancer Tonsil Cancer Tonsil Cancer Tonsil Cancer Tox check Tonsil Cancer Tonsil Cancer 2 wk f/u Tonsil Cancer C10.9 Follow Up Tonsil Cancer Tonsil Cancer 3 Week Follow up Follow Up Tonsil Cancer 1 Month Follow Up, H+N Reason for Visit Acute insomnia Oropharyngeal cancer Cancer associated pain Encounter for palliative care Oropharyngeal cancer Cancer associated pain Oropharyngeal cancer Oropharyngeal cancer Cancer associated pain Oropharyngeal cancer Cancer associated pain Oropharyngeal cancer Oropharyngeal cancer Acute insomnia Cancer associated pain Nausea Oropharyngeal cancer Oropharyngeal cancer Cancer associated pain Oropharyngeal cancer Acute insomnia Cancer associated pain Oropharyngeal cancer Oropharyngeal cancer Oropharyngeal cancer Oropharyngeal cancer Chief Complaint Admit Date 3 Week Follow up March 18, 2024 9: 11am Follow Up April 08, 2024 9:30am 1 Month Follow Up, H+N April 08 9:36am Follow Up 2 Month June 10, 2024 11:28am Reason for Visit Admit Date Oropharyngeal cancer March 18, 2024 9 :11am Oropharyngeal cancer April 08 9:30am Oropharyngeal cancer April 08 9:36am Oropharyngeal cancer June 10, 2024 11:28am Additional Source Comments (unrecognized sect ion and content) No Status Records FoundNo Status Records FoundNo Status Records FoundNo Status Records FoundNo Status Records FoundNo Status Records Found INFORMATION SOURCE (unrecogn ized section and content) DATE CREATED AUTHOR 03/26/2022 [facility] DATE CREATED AUTHOR AUTHOR'S ORGANIZ ATION 08/01/2022 [facility] DATE CREATED AUTHOR AUTHOR'S ORGANIZ ATION 05/08/[address] [facility] DATE CREATED AUTHOR AUTHOR'S ORGANIZ ATION 08/19/2023 Pastor Arthur [facility] DATE CREATED AUTHOR AUTHOR'S ORGANIZ ATION 06/02/2024 [facility] DATE CREATED AUTHOR AUTHOR'S ORGANIZ ATION 07/06/2024 [facility] Patient Care team informatio n (unrecognized section and content) Team Status: Active Member Role Status Dates Charly Hooper DO Primary Care Provider Active Team Status: Inactive Member Role Status Dates Charly Hooper DO Primary Care Provider Active Start: November 13, 2023 End: November 13, 2023 Katy Mcdonald APRN DIRECTOR INSTRUCTIONAL MATERIAL-C Attending Provider Act candice Start: November 13, [...] January 07, 2024 End: January 07, 2024 Karly Nielsen MD Attending [...] End: January 12, 2024 Katy Mcdonald APRN DIRECTOR [employer]STRU[employer]AL [employer]ERIAL-C Attending Provider Act candice Start: January 12, [...] 20, 2024 End: January 20, 2024 Nohemi Vizcaino DO Attending Provider Active Start: January 20, 2024 End: January 20, 2024 Team Status: Active Member Role Status Dates Charly Hooper DO Primary Care Provider Active Start: January 21, 2024 Karly Nielsen MD Other Provider Active Start: January 21, 2024 Charly Nowak , Referring Provider Active S tart: January 21, 2024 Marbella Muñoz MD Attending Provider Active Start: January 21, 2024 Team Status: Active Member Role Status Dates Charly Hooper DO Primary Care Provider Active Start: January 27, 2024 Karly Nielsen MD Attending Provider Active Start: January 27, 2024 Charly Nowak , DO Referring Provider Active S tart: January [...] January 28, 2024 Marbella Muñoz MD Attending Provid er, Other Provider Active Start: January 28, 2024 Team Status: Inactive Member Role Status Dates Charly Hooper DO Primary Care Provider Active Start: February 02, 2024 End: February 02, 2024 iMli Squires APRN Attending Provider Active Start: February [...] Active S tart: February 09, 2024 Marbella Muñoz MD Active Star t: February 09, 2024 [...] Active Start: February 11, 2024 Charly Nowak DO Referring Provider Active [...] January 27, 2024 Marbella Muñoz MD Attending [facility], Other Provider Active Start: January 27, 2024 Team Status: Active Member Role Status Dates Charly Hooper DO Primary Care Provider Active Start: February 02, 2024 Charly Nowak DO Referring Provider Active S tart: February 02, 2024 Marbella Muñoz MD Attending [facility], Other Provider Active Start: February 02, [...] Other Provider Active Start: March 08, 2024 Team Status: Active Member Role Status Dates Charly Hooper DO Primary Care Provider Active Start: February 09, 2024 Charly Nowak DO Referring Provider Active S tart: February 09, 2024 Marbella Muñoz MD Attending [facility], Other Provider Active Start: February 09, 2024 [address] MD Active St art: February 09, 2024 Team Status: Active Member Role Status Dates Charly Hooper DO Primary Care Provider Active Start: February 16, 2024 Charly Nowak DO Referring Provider Active S tart: February 16, 2024 Marbella Muñoz MD Attending Provider Active Start: February 16, 2024 Karly Nielsen MD Other Provider Active Start: February 16, 2024 Team Status: Active Member Role Status Dates Charly Hooper DO Primary Care Provider Active Start: February 23, 2024 Charly Nowak DO Referring Provider Active S tart: February 23, 2024 Marbella Muñoz MD Attending Provider Active Start: February 23, 2024 Karly Nielsen MD Other Provider Active Start: February 23, 2024 Team Status: Active Member Role Status Dates Charly Hooper DO Primary Care Provider Active Start: March 01, 2024 Charly Nowak DO Referring Provider Active S tart: March 01, 2024 Marbella Muñoz MD Attending Provid er, Other Provider Active Start: March 01, 2024 [address] MD Active St art: March 01, 2024 Team Status: Active Member Role Status Dates Charly Hooper DO Primary Care Provider Active Start: March 08, 2024 Charly Nowak DO Referring Provider Active S tart: March 08, 2024 Marbella Muñoz MD Attending Provider Active Start: March 08, 2024 Karly Nielsen MD Other Provider Active Start: March 08, 2024 Team Status: Active Member Role Status Dates Charly Hooper DO Primary Care Provide r, Attending Provider Active Start: March 09, 2024 Team Status: Active Member Role Status Dates Charly Hooper DO Primary Care Provider Active Start: March 18, 2024 Charly Nowak DO Referring Provider Active S tart: March 18, 2024 Marbella Muñoz MD Active Star t: March 18, 2024 Karly Nielsen MD Attending Provider Active Start: March 18, 2024 Team Status: Inactive Member Role Status Dates Charly Hooper DO Primary Care Provider Active Start: March 18, 2024 End: March 18, 2024 Karly Nielsen MD Attending Provider Active Start: March 18, 2024 End: March 18, 2024 Team Status: Inactive Member Role Status Dates Charly Hooper DO Primary Care Provider Active Start: April 08, 2024 End: April 08, 2024 Karly Nielsen MD Attending Provider Active Start: April 08, 2024 End: April 08, 2024 Team Status: Active Member Role Status Dates Charly Hooper DO Primary Care Provider Active Start: April 08, 2024 Charly Nowak DO Referring Provider Active S tart: April 08, 2024 Marbella Muñoz MD Active Star t: April 08, 2024 Karly Nielsen MD Attending Provider Active Start: April 08, 2024 Team Status: Active Member Role Status Tona Hooper DO Primary Care Provider Active Start: April 08, 2024 Marbella Muñoz MD Attending Provider Active Start: April 08, 2024 Team Status: Inactive Member Role Status Tona Hooper DO Primary Care Provider Active Start: April 08, 2024 End: April 08, 2024 Marbella Muñoz MD Attending Provider Active Start: April 08, 2024 End: April 08, 2024 Lighting Technician Relationship Specialty Start Date End Date Charly Hooper MD [address] [place] [phone] PCP - General Internal Medicine 12/23/22 Charly Nowak DO [address] [place] [place] [address] Otolaryngology 12/22/23 Mateo Moraes MD [address] [place], [place] [id number] Referring Physician Otolaryngology 12/22/23 Lighting Technician Relationship Specialty Start Date End Date Charly Hooper MD [address] [place] [phone] PCP - General Internal Medicine 12/23/22 Charly Nowak DO [address] [place] [address] Otolaryngology 12/22/23 Mateo Moraes MD [address] [place] [address] Referring Physician Otolaryngology 12/22/23 Lighting Technician Relationship Specialty Start Date End Date Charly Hooper MD [address] [place] [phone] PCP - General Internal Medicine 12/23/22 Nadja Escamilla NP [address] [place] [address] PCP - [employer] 07/21/23 Charly Nowak DO [address] [place] [address] Otolaryngology 12/22/23 Mateo Moraes MD [address] [facility] [address] [place] [address] Referring Physician Otolaryngology 12/22/23 Lighting Technician Relationship Specialty Start Date End Date Charly Hooper MD [address] [place] [phone] PCP - General Internal Medicine 12/23/22 Nadja Escamilla NP [address] [facility] [address] [place] [address] PCP - [employer] 07/21/23 Charly Nowak DO [address] [place] [address] Otolaryngology 12/22/23 Mateo Moraes MD [address] [facility] [address] [place] [address] Referring Physician Otolaryngology 12/22/23 Team Status: Inactive Member Role Status Dates Charly Hooper DO Primary Care Provider Active Start: June 10, 2024 End: June 10, 2024 Karly Nielsen MD Attending Provider Active Start: June 10, 2024 End: June 10, 2024 Marbella Muñoz MD Active Star t: June 10, 2024 Karly Nielsen MD Attending Provider Active Start: June 10, 2024 Lighting Technician Relationship Specialty Start Date End Date Charly Hooper MD [address] [place] [phone] PCP - General Internal Medicine 12/23/22 Charly Nowak DO [address] [place] [address] Otolaryngology 12/22/23 Mateo Moraes MD [address] [facility] [address] [place], [place] [id number] Referring Physician Otolaryngology 12/22/23 Lighting Technician Relationship Specialty Start Date End Date Charly Hooper MD [address] [place] [phone] PCP - General Internal Medicine 12/23/22 Charly Nowak DO [address] [place] [address] Otolaryngology 12/22/23 Mateo Moraes MD [address] [facility] [address] [place] [address] Referring Physician Otolaryngology 12/22/23 Goals (unrecognized section and content) Goals may be documented in a n alternate section Reason for Visit (unrecogniz ed section and content) Reason Comments Cancer 6 week recheck tonsi l CA Reason Comments Cancer 6 week recheck tonsi l cancer Reason Comments Cancer 1 month tammy FOR RECORDS PERTAINING TO PATIENTS WHO ARE [...] BE BASED ON THE PRIMARY CLINICAL RECORDS. [facility]. provides no warranty or guarantee of the accuracy or completeness of information in this document.
[2024-07-19 10:37] LABS: Prostate Specific Antigen Dx 1.12 ng/mL (<=4.00)
== END 2024-07-19 09:09 | disposition home or self-care (01) ==
PROVIDERS: PCP Internal Medicine; Visit Provider Urology
DX: Z85.46 Personal history of malignant neoplasm of prostate (principal); Z80.42 Family history of malignant neoplasm of prostate
CPT/HCPCS: 36415; 84153

== ENCOUNTER 2025-04-23 09:12 | Outpatient (OUT) | payer BC, SELFPAY ==
--- OUTSIDE RECORDS SUMMARY | 2025-04-23 09:16 | XMS_ITS | CCD ---
Author Organization [facility] CliniSyvt Care Team Providers Care Chemical Inspector Name Role Phone CHARLY HOOPER Referring Unavailable BALL, CHARLY Primary Care Unavailable PROMISE, THEO Attending Unavailable PROMISE, THEO Admitting Unavailable BALL, CHARLY Primary Care Unavailable BALL, CHARLY Referring Unavailable PROMISE, THEO Attending Unavailable PROMISE, THEO Admitting Unavailable MONIQUE, DR LEVINE Admitting Unavailable MONIQUE, DR LEVINE Attending Unavailable MONIQUE, DR LEVINE Consulting Unavailable BALL, DR DE [...] Attending Unavailable PROMISE, THEO Consulting Unavailable STELLA CHERRY Admitting Unavailable BALL, DR DE LUNA Primary Care Unavailable STELLA CHERRY Attending Unavailable STELLA CHERRY Consulting Unavailable CHARLY HOOPER Primary Care Physician DO Charly Hooper Primary Care Provider [phone] DO Charly Nowak Attending Provider [phone] MD Karly Nielsen Attending Provider DO Charly Nowak Referring Provider [phone] MD Karly Nielsen Attending Provider DO Charly Nowak Referring Provider [phone] DO Nohemi Vizcaino Attending Provider [phone] MD Karly Nielsen Attending Provider [phone] DO Charly Nowak Referring Provider MIGUEL Squires M Attending Provider Murjaiden, DO Charly Referring Provider [phone] MD Karly Nielsen Yaser Attending Provider Murjaiden, DO Charly Referring Provider MD Karly Nielsen Yaser Attending Provider [phone] MD Marbella Muñoz Attending Provider Murjaiden, DO Charly Referring Provider MD Karly Nielsenser Attending Provider [phone] MD Marbella Muñoz Attending Provider Murjaiden, DO Charly Referring Provider She DO Charly Referring Provider MD Karly Nielsenser Attending Provider She DO Charly Referring Provider MD Karly Nielsen Yaser Attending Provider MD Marbella Muñoz Attending Provider DO Charly Nowak Referring Provider MD Karly Nielsenser Attending Provider DO Charly Nowak Referring Provider MD Karly Nielsenser Attending Provider She DO Charly Referring Provider MD Karly Nielsenser Attending Provider DO Charly Nowak Referring Provider MD Karly Nielsen Attending Provider DO Charly Hooper Primary Care Provider DO Charly Nowak Referring Provider MD Karly Nielsen Attending Provider Luca URBINA, Charly E Primary Care Provider Murcek DO, Charly W Unavailable Aleisha URBINA, Mateo Espinosa Unavailable [phone] Francine MEDICAL ASSISTING INSTRUCTOR, Nadja Tunde Unavailable Ball DO, Charly Primary Care Provider Murcek DO, Charly Referring Provider Marbella Muñoz MD Attending Provider Itzkonancy BORDEN, Nohemi Attending Provider Francine MEDICAL ASSISTING INSTRUCTOR, Nadja Griffiths Unavailable [phone] Marbella Muñoz Admitting Unavailable Marbella Muñoz Attending Unavailable Murcek, Charly Referring Unavailable Ball, Charly Primary Care Unavailable ShawSiriMili M Attending Unavailable Shaw, Mili M Admitting Unavailable Ball, Charly Primary Care Unavailable Ball, Charly Primary Care Unavailable ShawSiriMili Sara Attending Unavailable Shaw, Mili M Admitting Unavailable Shaw, Mili M Admitting Unavailable Shaw, Mili M Attending Unavailable Ball, Charly Primary Care Unavailable Shaw, Mili M Admitting Unavailable Shaw, Mili M Attending Unavailable Ball, Charly Primary Care Unavailable Ball, Charly Primary Care Unavailable Murcek, Charly Attending Unavailable Murcek, Charly Admitting Unavailable Ball, Charly Primary Care Unavailable Murcek, Charly Attending Unavailable Murcek, Charly Admitting Unavailable Itzkowitz, Nohemi Admitting Unavailable Itzkowitz, Nohemi Attending Unavailable Ball, Charly Primary Care Unavailable Ball, Charly Primary Care Unavailable Itzkowitz, Nohemi Attending Unavailable Itzkowitz, Nohemi Admitting Unavailable Ball, Charly Primary Care Unavailable Murcek, Charly Attending Unavailable Murcek, Charly Admitting Unavailable Shaw, Mili M Admitting Unavailable Shaw, Mili M Attending Unavailable Ball, Charly Primary Care Unavailable Shaw, Mili M Admitting Unavailable Shaw, Mili M Attending Unavailable Ball, Charly Primary Care Unavailable Shaw, Mili M Attending Unavailable Ball, Charly Primary Care Unavailable ShawSiriMili M Admitting Unavailable Marbella Muñoz Attending Unavailable Charly Hooper Primary Care Unavailable Marbella Muñoz Admitting Unavailable Charly Hooper DO Primary Care Provider [phone] Charly Nowak DO Referring Provider Marbella Muñoz MD Attending Provider Charly Hooper MD Primary Care Provider THEO VIRGEN Attending Unavailable Charly Hooper DO Primary Care Provider SHE, CHARLY Thurman Attending Unavailable MURCEK, CHARLY Thurman Attending Unavailable MURCEK, CHARLY W Referring Unavailable MURCEK, CHARLY Thurman Attending Unavailable TIMMIS, MATEO H Referring Unavailable TILLMAN, ARTIE Banuelos Attending Unavailable TILLMAN, ARTIE Banuelso Referring Unavailable MURCEK, CHARLY W Attending Unavailable JR. GERMANIA, BILLIE Nowak Attending Unavaila ble MURCEK, CHARLY Thurman Attending Unavailable MURCEK, CHARLY Thurman Attending Unavailable TIMMIS, MATEO H Referring Unavailable MURCEK, CHARLY W Attending Unavailable TIMMIS, MATEO H Referring Unavailable MURCEK, CHARLY W Attending Unavailable TIMMIS, MATEO H Referring Unavailable ITZKOWITZ, NOHEMI H Attending Unavailable APLINGNADJA Attending Unavailable ITZKOWITZ, NOHEMI H Attending Unavailable MONIQUE, Abner R Attending Unavailable MONIQUE, Abner R Admitting Unavailable Thalia Valles Attending Unavailable MONIQUE, Abner R Attending Unavailable MONIQUE, Abner R Attending Unavailable MONIQUE, Abner R Admitting Unavailable MONIQUE, Abner R Attending Unavailable MONIQUE, Abner R Attending Unavailable Allergies Allergy Classification Reported Allergen(s) Allergy Type Date of Onset Reaction(s) Facility Acetaminophen (2 sources) Acetaminophen Drug Allergy 4 [facility] Opioid Agonists (2 sources) oxyCODONE Drug Allergy 4 [facility] (1 source) Acetaminophen / oxyCODONE Drug Allergy 2 [facility] Repository (20 sources) oxyCODONE; Translations: [OXYCODONE] Drug Allergy [address] [facility] Repository (20 sources) oxyCODONE; Translations: [oxycodone] Drug Allergy 2 Itching (finding), Itching [facility] (20 sources) Acetaminophen; Translations: [acetaminophen] Drug Allergy 4 rash [facility] (1 source) oxyCODONE Drug Allergy 5 [facility] Repository (1 source) Acetaminophen / oxyCODONE; Translations: [OXYCODONE-ACETAM INOPHEN] Drug Allergy 2 [facility] Repository Medications Current Medications Medication Drug Class(es) Dates Sig (Normalized) Sig (Original) amiodarone hydrochloride 200 mg oral tablet (20 sources) Antiarrhythmic Start: 12-23-2023 take 1 tablet by mouth every other day Amiodarone 200 mg tablet Active 200 MG PO .every other day December 23, 2023 12:00am Start: 08-18-2023 take 1 mg by mouth once daily amiodarone 200 mg Tab mg tab(s), Oral, Daily, Refills(s) 0 Start Date: 08/18/23 Status: Ordered Repeat number: 1 amLODIPine 10 mg oral tablet (20 sources) Dihydropyridine Calcium Channel Tanner Start: 06-17-2022 amLODIPine 10 mg Tab Refills(s) 0 Start Date: 08/18/23 Status: Ordered Repeat number: 1 Start: 04-28-2019 amlodipine Ora l, Daily, Refills(s) 0 Start Date: 04/28/19 Status: Ordered amoxicillin 875 mg oral tablet (2 sources) Penicillin-class Antibacterial Start: 08-25-2024 take 1 tablet by mouth twice daily Amoxicillin 875 mg tablet Active 875 MG PO Twice daily 09 05August 25, 2024 1:00am apixaban 5 mg oral tablet (20 sources) Factor Xa Inhibitor Start: 11-09-2024 End: 11-09-2025 take 1 tablet by mouth in the morning apixaban (Eliquis) 5 MG tablet Take 5 mg by mouth in the morning and 5 mg in the evening. 11/09/2024 11/09/2025 Active Start: 08-18-2023 take 1 tablet by artur th twice daily Apixaban (Eliquis) 5 mg tablet Active 5 MG PO Twice daily December 23, 2023 12:00am Start: 04-28-2019 Eliquis Oral, BID, Refills(s) 0 Start Date: 04/28/19 Status: Ordered carvedilol 25 mg oral tablet (20 sources) alpha-Adrenergic Tanner, beta-Adrenergic Tanner Start: 08-18-2023 carvedilol (Core g) 25 MG tablet 09/21/2023 Active Start: 04-28-2019 carvedilol Ora l, Refills(s) 0 Start Date: 04/28/19 Status: Ordered docosahexaenoic acid 120 mg / eicosapentaenoic acid 180 mg oral capsule (20 sources) omega-3 (Fish Oi l) 1000 MG capsule 1 capsule 1 (one) time each day at the same time Active furosemide 40 mg oral tablet (20 sources) Loop Diuretic Start: 08-18-2023 End: 03-25-2025 take 1 tablet by mouth in the morning furosemide (Lasix) 40 MG tablet Take 40 mg by mouth in the morning. 03/25/2024 03/25/2025 Active Start: 08-09-2022 furosemide 40 mg Tab Refills(s) 0 Start Date: 08/09/22 Status: Ordered ibuprofen 800 mg oral tablet (20 sources) Nonsteroidal Anti-inflammatory Drug Start: 11-08-2024 take 1 tablet by mouth every eight hours as needed for pain Ibuprofen 800 mg tablet Active 800 MG PO Every 8 hours November 08, 2024 12:00am Take one tablet, every eight hours as needed for pain. Take take with food. Start: 01-20-2024 take 1 tablet by artur th every six hours as needed ibuprofen 600 MG tablet Take 600 mg by mouth every 6 (six) hours if needed 01/20/2024 Active Start: 01-20-2024 End: 11-08-2024 take 4 tablets by mouth every twenty-four hours for pain Ibuprofen 600 mg tablet Discontinued 600 MG PO EVERY 4-6 HOURS as needed for pain 14 3 January 20, 2024 12:00am November 08, 2024 9:43am do not exceed 4 doses in a 24 hour period linseed oil 1000 mg oral capsule (20 sources) Flaxseed, Linsee d, (Flax Seed Oil) 1000 MG capsule Active losartan potassium 100 mg oral tablet (20 sources) Angiotensin 2 Receptor Tanner Start: 06-17-2022 losartan 100 mg Tab Refills(s) 0 Start Date: 08/18/23 Status: Ordered Repeat number: 1 Start: 04-28-2019 losartan Oral, Daily, Refills(s) 0 Start Date: 04/28/19 Status: Ordered omeprazole 20 mg delayed release oral capsule (20 sources) Proton Pump Inhibitor Start: 01-21-2024 Omeprazole 20 mg capsule,delayed release(DR/EC) Active 0 .ROUTE .COMPLEX January 21, 2024 5:54pm TAKE 1 CAPSULE DAILY ON AN EMPTY STOMACH FOLLOWED IN 30 MINUTES BY BREAKFAST FOR 90 DAYS Start: 07-23-2023 End: 01-21-2024 omeprazole (PriLOSEC) [address] capsule 07/23/2023 Active Start: 08-09-2022 omeprazole 20 mg Cap-DR Refills(s) 0 Start Date: 08/09/22 Status: Ordered ondansetron 8 mg disintegrating oral tablet (20 sources) Serotonin-3 Receptor Antagonist Start: 01-07-2024 End: 06-10-2024 take 1 tablet by mouth every eight hours as needed ondansetron ODT (Zofran-ODT) 8 MG disintegrating tablet Take 8 mg by mouth every 8 (eight) hours if needed 01/07/2024 Active traMADol hydrochloride 50 mg oral tablet (20 sources) Opioid Agonist Start: 02-16-2024 take 1 [...] 6 hours as needed for pain 60 February 16, 2024 9:30am June 10, 2024 12:36pm traZODone hydrochloride 50 mg oral tablet (20 [...] Sig (Original) acetaminophen 325 mg oral tablet (13 sources) End: 07-19-2024 acetaminophen (Tylenol) 325 MG tablet Take by mouth. 07/19/2024 Discontinued (Therapy completed) cyclobenzaprine hydrochloride 10 mg oral tablet (20 sources) Muscle Relaxant Start: 02-19-2024 End: 07-19-2024 take 1 tablet by mouth once daily at bedtime Cyclobenzaprine 10 mg tablet Discontinued 10 MG PO Daily at bedtime February 19, 2024 12:00am June 10, 2024 12:34pm doxycycline hyclate 100 mg delayed release oral tablet (20 sources) Tetracycline-cla ss Drug Start: 11-13-2023 End: 12-23-2023 take 1 tablet by mouth twice daily Doxycycline Hyclate 100 mg tablet,delayed release (DR/EC) Discontinued 100 MG PO Twice daily 09 05November 13, 2023 12:00am December 23, 2023 8:02am fluconazole 200 mg oral tablet (20 sources) Azole Antifungal Start: 03-18-2024 End: 07-19-2024 take 1 tablet by mouth once daily Fluconazole (Diflucan) 200 mg tablet Discontinued 200 MG PO Daily March 18, 2024 12:00am June 10, 2024 12:34pm Magic Mouthwash W/Lidocaine 240 Ml Bottle (20 [...] W/Lidocaine 240 Ml Bottle 240 mL bottle (12 sources) Start: 02-18-2024 End: 02-18-2024 take 1 tablet by mouth every six hours as needed Magic Mouthwash W/Lidocaine 240 Ml Bottle 240 mL bottle Discontinued 5 - 10 ML PO Q6H as needed for Mucositis 240 February 18, 2024 12:00am February 18, 2024 1:48pm hydrocortisone 20 mg tablet 120 mg; diphenhydramine 12.5 mg/5 mL oral liquid 60 mL; Ora-Sweet oral syrup 60 mL; nystatin 100,000 unit/mL oral suspension 60 mL; Lidocaine Viscous 2 % mucosal solution 60 mL; Per 240 mL Instructions - Swish and Swallow dose Start: 02-18-2024 End: 02-18-2024 take 1 tablet [...] for mouth irritation 240 January 28, 2024 8:09am June 10, 2024 12:35pm Take 5ml by mouth four times a day, as needed. SWISH AND SWALLOW. Start: 01-28-2024 End: 06-10-2024 take 5 mL [...] as needed for mouth irritation 240 January 08, 2024 12:00am January 28, 2024 8:11am hydrocortisone 20 mg tablet 120 mg; diphenhydramine 12.5 mg/5 mL oral liquid 60 mL; Ora-Sweet oral syrup 60 mL; nystatin 100,000 unit/mL oral suspension 60 mL; Lidocaine Viscous 2 % mucosal solution 60 mL; Per 240 mL Start: 01-08-2024 End: 01-28-2024 Magic Mouthwash W/Lidocaine [...] mucosal solution 60 mL; Per 240 mL 1 ml methylPREDNISolone acetate 40 mg/ml injection (8 sources) Corticosteroid Start: 03-09-2025 End: 03-09-2025 methylPREDNISolone acetate (DEPO-Medrol) injection 40 mg Start: 03-09-2025 End: 03-09-2025 40 mg, Intra-articular, Once PRN Procedure, Starting on Fri03/09/25 at 1325, For 1 dose Start: 08-02-2024 End: 08-02-2024 methylPREDNISolone acetate ( DEPO-Medrol) injection 40 mg Start: 08-02-2024 End: 08-02-2024 40 mg, Intra-articular, Once PRN Procedure, Starting on Fri08/02/24 at 1134, For 1 dose mometasone furoate 1 mg/ml topical cream (20 sources) Corticosteroid Start: 01-07-2024 End: 06-10-2024 Mometasone 0.1 % cream Discontinued 1 APPLIC TOPICAL Daily January 07, 2024 12:00am June 10, 2024 12:35pm Apply to radiation site, once a day, AFTER radiation treatments. Start: 01-07-2024 End: 07-19-2024 mometasone (Elocon) 0.1 % cr eam Apply topically Daily 01/07/2024 07/19/2024 Discontinued (Therapy completed) morphine sulfate 2 mg/ml oral solution (20 sources) Opioid Agonist Start: 02-02-2024 End: 06-10-2024 take 5 mg by mouth every four to six hours as needed for pain Morphine 10 mg/5 mL solution Discontinued 5 MG PO EVERY 4-6 HOURS as needed for pain 100 February 02, 2024 June 10, 2024 12:35pm Start: 02-02-2024 End: 07-19-2024 morphine 10 MG/5ML solution 10 mg every 4 (four) hours if needed 02/02/2024 07/19/2024 Discontinued (Therapy completed) Start: 02-02-2024 End: 02-02-2024 take 5 mg by mouth every four to six hours Morphine Discontinued 5 MG PO EVERY 4-6 HOURS 100 10 February 02, 2024 February 02, 2024 11:28am nystatin [id number] unt/ml oral suspension (9 sources) Polyene Antifungal Start: 04-09-2024 End: 07-19-2024 take 5 mL by mouth three times daily nystatin (Mycostatin) [id number] UNIT/ML suspension TAKE 5 ML ORALLY THREE TIMES DAILY SWISH AND SPIT OR SWALLOW 04/09/2024 07/19/2024 Discontinued Nystatin 100,000 unit/mL suspension (4 sources) Start: 04-09-2024 End: 06-10-2024 Nystatin 100,000 unit/mL suspension Discontinued 5 ML PO Three times daily April 09, 2024 12:00am June 10, 2024 12:35pm swish and spit or swallow 5ml 2-3 times daily Start: 04-09-2024 End: 06-10-2024 Nystatin 100,000 unit/mL emily pension Discontinued 5 ML PO Three times daily April 08, 2024 11:00pm June 10, 2024 11:35am swish and spit or swallow 5ml 2-3 times daily potassium chloride 10 meq extended release oral tablet (19 sources) Start: 03-10-2024 End: 07-19-2024 take 1 tablet by mouth once daily Potassium Chloride 10 mEq tablet extended release Discontinued 10 MEQ PO Daily March 10, 2024 12:00am June 10, 2024 12:35pm prochlorperazine 10 mg oral tablet (20 sources) Phenothiazine Start: 01-07-2024 End: 07-19-2024 take 1 tablet by mouth every six hours as needed for nausea and vomiting Prochlorperazine Maleate (Compazine) 10 mg tablet Discontinued 10 MG PO Every 6 hours as needed for nausea and vomiting January 07, 2024 12:00am June 10, 2024 12:35pm sucralfate 100 mg/ml oral suspension (17 sources) Aluminum Complex Start: 03-01-2024 End: 07-19-2024 take 10 mL by mouth twice daily sucralfate (Carafate) 1 GM/10ML suspension TAKE 10ML BY MOUTH TWICE A DAY *SWISH, HOLD AND SPIT OR SWALLOW* 03/01/2024 07/19/2024 Discontinued (Therapy completed) Start: 03-01-2024 take 1 g by mouth twice daily Sucralfate Active 1 GM PO Twice daily 300 March 01, 2024 12:00am Sucralfate 100 mg/mL suspension (4 sources) Start: 03-01-2024 End: 06-10-2024 take 1 g by mouth twice daily Sucralfate 100 mg/mL suspension Discontinued 1 GM PO Twice daily 300 March 01, 2024 12:00am June 10, 2024 12:36pm Start: 03-01-2024 End: 06-10-2024 take 1 g by mouth twice daily Sucralfate 100 mg/mL emily pension Discontinued 1 GM PO Twice daily 300 February 29, 2024 11:00pm June 10, 2024 11:36am tadalafil 20 mg oral tablet (20 sources) Phosphodiesterase 5 Inhibitor Start: 10-11-2024 take 1 tablet by mouth every hour as needed tadalafil 20 mg Tab 20 mg = 1 tab(s), Oral, As Directed, PRN for erectile dysfunction, Take one pill 1 hour prior to sexual activity., # 30 tab(s), Refills(s) 3, Pharmacy: [facility]/pharmacy #[id number], 177, cm, 10/11/24 11:02:00 EDT, Height/Length Dosing, 108.7, kg, 10/11/24 11:02:00 EDT, Weight Dosing Start Date: 10/11/24 Status: Ordered Quantity: 30.0 Unit: tab(s) Repeat number: 4 Indications: Male erectile dysfunction, unspecified; Start: 08-18-2023 take 1 tablet by artur th every twenty-four hours as needed tadalafil (Cialis) 20 MG tablet Take 20 mg by mouth Daily as needed 08/18/2023 Active Start: 08-18-2023 take 1 tablet by artur th every hour as needed tadalafil 20 mg Tab 20 mg = 1 tab(s), Oral, As Directed, PRN for erectile dysfunction, Take one pill 1 hour prior to sexual activity., # 30 tab(s), Refills(s) 3, Pharmacy: [facility] #[id number], 177, cm, 08/18/23 10:35:00 EST, Height/Length Dosing, 113.2, kg, 08/18/23 10:35:00 EST, Weight Dosing Start Date: 08/18/23 Status: Ordered Problems Active Problems Problem Classification Problem Date Documented Date Episodic/Chronic Acute and chronic tonsillitis (20 sources) Mass of palatine tonsil; Translations: [Other chronic diseases of tonsils and adenoids] Onset: 12-17-2023 12-17-2023 Chronic Cancer of head and neck (20 sources) Malignant tumor of oropharynx; Translations: [Malignant neoplasm of oropharynx, unspecified] Onset: 12-24-2023 01-06-2024 Chronic Comment on above: Dx: hemothera py/Radiation therapy Dx: 12/2023 SCCChemot herapy/Radiation therapy Cancer of prostate (20 sources) Malignant tumor of prostate; Translations: [Malignant neoplasm of prostate] Onset: 12-17-2023 01-10-2020 Chronic Cancer of prostate (20 sources) Personal history of malignant neoplasm of prostate; Translations: [History of malignant neoplasm of prostate] Onset: 07-19-2022 Episodic Cardiac dysrhythmias (20 sources) Paroxysmal atrial fibrillation; Translations: [Unspecified atrial fibrillation] Onset: 11-24-2017 Chronic Disorders of lipid metabolism (20 sources) Hypercholesterolemia; Translations: [Pure hypercholesterolemia, unspecified] Onset: 12-25-2022 04-28-2019 Chronic Esophageal disorders (20 sources) Gastroesophageal reflux disease; Translations: [Gastro-esophageal reflux disease without esophagitis] Onset: 12-25-2022 04-28-2019 Chronic Essential hypertension (20 sources) Essential (primary) hypertension; Translations: [Hypertensive disorder] Onset: 06-01-2021 04-28-2019 Chronic Genitourinary symptoms and ill-defined conditions (20 sources) Nocturia; Translations: [Microscopic hematuria] Onset: 07-19-2022 08-04-2019 Episodic Glaucoma (20 sources) Glaucoma; Translations: [Unspecified glaucoma] Onset: 12-25-2022 04-28-2019 Chronic Hyperplasia of prostate (20 sources) Benign prostatic hyperplasia with lower urinary tract symptoms; Translations: [Benign prostatic hypertrophy with outflow obstruction] Onset: 07-16-2022 Resolved: 12-20-2023 Chronic Joint disorders and dislocations; trauma-related (20 sources) Derangement of right knee; Translations: [Unspecified internal derangement of right knee] Onset: 12-25-2022 12-25-2022 Chronic Osteoarthritis (20 sources) Idiopathic osteoarthritis; Translations: [Primary osteoarthritis, unspecified site] Onset: 12-25-2022 12-25-2022 Chronic Other male genital disorders (3 sources) Male erectile dysfunction, unspecified; Translations: [Erectile dysfunction] Onset: 07-19-2022 Chronic Other male genital disorders (3 sources) Impotence 10-08-2019 Chronic Other male genital disorders (3 sources) 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 Other nervous system disorders (20 sources) Pain due to neoplastic disease; Translations: [Neoplasm related pain (acute) (chronic)] Onset: 02-14-2024 01-27-2024 Chronic Other nervous system disorders (20 sources) Neoplasm related pain (acute) (chronic); Translations: [Neoplasm related pain (acute) (chronic)] Onset: 03-01-2024 01-27-2024 Chronic Other nervous system disorders (20 sources) Carpal tunnel syndrome of left wrist; Translations: [Carpal tunnel syndrome, left upper limb] Onset: 12-25-2022 12-25-2022 Chronic Other non-traumatic joint disorders (4 sources) Arthritis of left knee 08-02-2024 Chronic Other non-traumatic joint disorders (6 sources) Pain in left knee; Translations: [Pain in joint, lower leg] 08-02-2024 Episodic Other nutritional; endocrine; and metabolic disorders (20 sources) Body mass index 30+ - obesity; Translations: [Body mass index (BMI) 35.0-35.9, adult] Onset: 05-07-2023 Resolved: 12-20-2023 07-19-2020 Chronic Other screening for suspected conditions (not mental disorders or infectious disease) (20 sources) Ultrasound scan abnormal; Translations: [Abnormal findings on diagnostic imaging of other specified body structures] 11-18-2023 Chronic Other screening for suspected conditions (not mental disorders or infectious disease) (15 sources) Raised prostate specific antigen; Translations: [Rising PSA following treatment for malignant neoplasm of prostate] Onset: 10-25-2024 01-10-2020 Episodic Other skin disorders (20 sources) Finding of head and neck region; Translations: [Localized swelling, mass and lump, head] 11-13-2023 Episodic Other skin disorders (16 sources) Localized swelling, mass and lump, head; Translations: [Swelling, mass, or lump in head and neck] 11-13-2023 Episodic Other skin disorders (2 sources) Enlargement of neck; Translations: [Localized swelling, mass and lump, neck] 10-25-2024 Episodic Other upper respiratory infections (4 sources) Acute pharyngitis; Translations: [Acute pharyngitis, unspecified] 08-25-2024 Episodic Residual codes; unclassified (4 sources) Obstructive sleep apnea (adult) (pediatric); Translations: [OBSTRUCTIVE SLEEP APNEA] Onset: 08-14-2021 Chronic Residual codes; unclassified (20 sources) Obstructive sleep apnea syndrome; Translations: [Obstructive [...] 08-09-2022 Episodic Residual codes; unclassified (20 sources) Family history of prostate cancer; Translations: [Family history of malignant neoplasm of prostate] Onset: 12-25-2022 10-08-2019 Episodic Residual codes; unclassified (14 sources) H/O: radiation exposure; Translations: [Personal history of irradiation] 05-10-2024 Episodic Screening and history of mental health and substance abuse codes (20 sources) Ex-smoker; Translations: [Personal history of nicotine dependence] Onset: 12-25-2022 10-08-2019 Episodic Secondary malignancies (8 sources) Secondary malignant neoplasm of lymph nodes of neck; Translations: [Secondary and unspecified malignant neoplasm of lymph nodes of head, face and neck] 03-30-2024 Chronic Thyroid disorders (20 sources) Thyroid nodule; Translations: [Nontoxic single thyroid nodule] Onset: 12-17-2023 12-17-2023 Chronic Unclassified (1 source) CONTACT W/AND (SUSP) EXPOS COVID-19; Translations: [CONTACT W/AND (SUSP) EXPOS COVID-19] Onset: 2022 Unclassified (3 sources) Drug therapy finding 10-08-2019 Unclassified (2 sources) Other persistent atrial fibrillation; Translations: [Other persistent atrial fibrillation] Onset: 11-30-2024 Unclassified (2 sources) Acute pain of left knee 03-09-2025 Past or Other Problems Problem Classification Problem Date Documented Da te Episodic/Chronic Diseases of mouth; excluding dental (20 sources) Oral lesion; Translations: [Other lesions of oral mucosa] Onset: 02-14-2024 01-08-2024 Episodic Nausea and vomiting (20 sources) Nausea; Translations: [Nausea] Onset: 02-23-2024 02-23-2024 Episodic Other aftercare (20 sources) Patient encounter status; Translations: [Encounter for palliative care] Onset: 02-14-2024 01-27-2024 Episodic Other aftercare (14 sources) Encounter for palliative care; Translations: [Encounter for palliative care] Onset: 01-27-2024 01-27-2024 Episodic Other aftercare (20 sources) Drug therapy finding; Translations: [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] Onset: 12-25-2022 12-25-2022 Episodic Other aftercare (1 source) Encounter for adjustment and management of vascular access device; Translations: [Encounter for adjustment and management of vascular access device] Onset: 07-30-2024 Episodic Other diseases of veins and lymphatics (20 sources) Vascular insufficiency; Translations: [Venous insufficiency (chronic) (peripheral)] Onset: 01-14-2024 01-14-2024 Episodic Other gastrointestinal disorders (1 source) Dysphagia, oral phase; Translations: [Dysphagia, oral phase] Onset: 02-24-2024 Episodic Other skin disorders (20 sources) Mass of neck; Translations: [Localized swelling, mass and lump, neck] Onset: 12-17-2023 12-17-2023 Episodic Other upper respiratory infections (20 sources) Maxillary sinusitis; Translations: [Chronic maxillary sinusitis] Onset: 12-20-2023 Resolved: 12-20-2023 11-13-2023 Chronic Residual codes; unclassified (20 sources) Acute insomnia; Translations: [Insomnia, unspecified] Onset: 02-14-2024 01-12-2024 Episodic Residual codes; unclassified (20 sources) Insomnia, unspecified; Translations: [Insomnia, unspecified] Onset: 03-08-2024 01-12-2024 Episodic Results Test Name Value Interpretation Reference Range Facility PSA Totalon 04-15-2025 PSA Total 4.8 ng/mL High 0.1-3.5 [facility] Comment on above: Result Comment: The concentration of PSA determined by different manufacturers can vary due to differences in assay methods and reagent specificity. Values obtained from different assay methods cannot be used interchangeably. The methodology used for this result was chemiluminescence using [employer]'s Access Hybritech PSA reagent. Performed By: #### 1 [id number] #### [facility] [address] [place] [address] Reminderson 04-11-2025 Reminders Reminders From: Mihaela Flores To: TAMMY - Daphne Monique; Sent: 10/11/2024 11:21:41 EDT Show up: 03/13/2025 11:21:00 EDT Subject: PSA Due Date/Time: 04/13/2025 11:21:00 EDT Reminder Message Pt is getting PSA drawn in 6 mos (03/2025) and will need called with results. Then has f/u in 1 yr with another PSA level. Pt has appt 04/15/25 for IO draw.LG Normal [facility] No Panel Informationon 03-09 Jr. Billie Loya DO 03/09/2025 1:47 PM L Inj/Asp: L knee on 03/09/2025 1:25 PM Indications: pain Details: 21 G needle, anterolateral approach Medications: 40 mg methylPREDNISolone acetate 40 MG/ML Outcome: tolerated well, no immediate complications SKIN PREPPED/CLEANED WITH ISOPROPYL ALCOHOL Procedure, treatment alternatives, risks and benefits explained, specific risks discussed. Consent was given by the patient. [facility] Healthcare Office Visiton 11-30-2024 Follow-up visit [id number] Alen Calderon 1965 M Date Provider Department Center 11/30/2024 THEO FREGOSO Family History Problem Relation Age of Onset Cancer Mother Cancer Father Family Status - Relation Status Age at Mother Father Sister Alive Brother Level of Service:[id number] ME OFFICE/OUTPATIENT ESTABLISHED LOW MDM [address] 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 Coronal and sagittal reformations were reconstructed. . COMPARISON: CT neck December 02, 2023 FINDINGS: Mucosa/Submucosa (Pharyngeal mucosal space): Nasopharyngeal mucosa is symmetric and normal in appearance. The oral pharyngeal mucosa appears to be symmetric and the nodular mass projecting from the right oral pharyngeal mucosal caudally is no longer apparent. Hypopharynx: piriform sinus, posterior pharyngeal wall, and post-cricoid region appear normal and intact. Larynx: Supraglottis- False cords, aryepiglottic folds, and epiglottis appear intact. Glottis- True cords appear symmetric Subglottis- clear Parapharyngeal Space: Normal fat density and symmetric in appearance. Seed Service Advisor Space: No swelling or masses. Retropharyngeal Space: No soft tissue swelling. Lymph Nodes: Tiny scattered lymph nodes are visible but the large level 2 lymph node on the right side seen previously is no longer apparent. Several level 2 lymph nodes on the right measure under a centimeter and dimension. Salivary Glands: Parotid and Submandibular glands appear symmetric and normal. Thyroid: Normal in size overall. Tiny nodule in the right lobe measures 8 mm and small nodule or parathyroid posterior to the right lobe is unchanged at 7 mm. Neck Muscles.: Symmetric and normal Vessels: Tortuous extracranial carotid arteries are noted with some medialization of the right proximal ICA. Cervical Spine: Multilevel disc degeneration with anterior spurring in the lower cervical spine is seen. Skull Base: Grossly intact as seen. Visible portions of the mastoids and paranasal sinuses are clear. Upper chest: Visible lung apices and superior mediastinum are not remarkable. IMPRESSION: 1. resolution of the previously seen nodular mass projecting from the right oropharynx and enlarged right jugular lymph node. 2. No visible recurrent mass or pathologic adenopathy by CT. Dictated on: 10/20/2024 4:42 PM This report has been electronically signed and approved by the interpreting Radiologist. Normal Not Available Ambulatory Visit Summaryon 0 10-11-2024 Ambulatory Visit Summary Ambulatory Visit Summary ALEN CALDERON :1965 Visit Date:10/11/2024 Ambulatory Visit Instructions Your Diagnosis Rising PSA following treatment for malignant neoplasm of prostate Prostate cancer BPH with urinary obstruction Impotence Your Care Team Attending Physician - Abner MONIQUE MD Primary Care Physician - CHARLY HOOPER DO This Is Your Medications List tadalafil (tadalafil 20 mg Tab) Contact prescribing physician if questions or concerns amiodarone (amiodarone 200 mg Tab) amlodipine (amLODIPine 10 mg Tab) apixaban (Eliquis 5 mg oral tablet) carvedilol (carvedilol 25 mg Tab) furosemide (furosemide 40 mg Tab) losartan (losartan 100 mg Tab) Procedures Performed Radiation therapy care (2023), Seed implantation into prostate (09/09/2019), Transrectal biopsy of prostate using ultrasound (US) guidance (07/20/2019), Transrectal biopsy of prostate using ultrasound (US) guidance (08/11/2018), Cardiac ablation using fluoroscopy guidance, Carpal tunnel decompression, Cholecystectomy, History of hernia repair, Vasectomy. Discharge Vitals Temperature (Temporal Artery) 37 ???C Heart Rate (Peripheral) 72 Respiratory Rate 16 Blood Pressure 134/79 Height 177 cm Height 70 in Weight 108.7 kg Weight 239.642 lb BMI 34.7 What to do next Scheduled Follow-Up Appointments Friday 8:00 AM EDT With: Where: [facility] [address] [facility] [place] [address] [place] [address]- Wednesday 2025 8:00 AM EDT With: Where: [facility] [address] [place] [address]- Friday2025 8:45 AM EDT With: Abner MONIQUE MD Where: [facility] [address] [place] [address]- You Need to Schedule the Following Appointments Follow Up with Abner MONIQUE MD, URL When: Comments: PSA in 6 mos, f/u in 1 yr w/ another PSA Where: [facility] [address], [facility] [place] [address]- [phone] You Need to Complete the Following PSA Total, Blood, Routine collect, *Est. 04/13/25 +/- 28 day(s), Order for future visit, Lab Collect, Rising PSA following treatment for malignant neoplasm of prostate Prostate cancer, Print Label By Order Location PSA Total, Blood, Routine collect, *Est. 10/11/ +/- 28 day(s), Order for future visit, Lab Collect, Rising PSA following treatment for malignant neoplasm of prostate Prostate cancer, Print Label By Order Location Medications What How Much When Why Instructions Unchanged tadalafil (tadalafil 20 mg Tab) 1 Tablets By Mouth As Directed as needed for for erectile dysfunction Impotence Take one pill 1 hour prior to sexual activity. Pickup at [facility]/pharmacy #[id number] Unchanged amiodarone (amiodarone 200 mg Tab) By Mouth Every day Contact prescribing physician if questions or concerns Unchanged amlodipine (amLODIPine 10 mg Tab) Contact prescribing physician if questions or concerns Unchanged apixaban (Eliquis 5 mg oral tablet) Contact prescribing physician if questions or concerns Unchanged carvedilol (carvedilol 25 mg Tab) Contact prescribing physician if questions or concerns Unchanged furosemide (furosemide 40 mg Tab) Contact prescribing physician if questions or concerns Unchanged losartan (losartan 100 mg Tab) Contact prescribing physician if questions or concerns Pharmacy Information [facility]/pharmacy #[id number]: [address] [place], [place] [phone] Allergies oxyCODONE (Itch) Problems Ongoing - Any problem that you are currently receiving treatment for. Anticoagulated Atrial fibrillation BMI 35.0-35.9,adult BPH with urinary obstruction Elevated cholesterol Family history of prostate cancer Former smoker Gastroesophageal reflux Glaucoma History of prostate cancer Hypertension Impotence Microhematuria Nocturia Organic impotence Prostate cancer Rising PSA following treatment for malignant neoplasm of prostate Historical - Any problem that you are no longer receiving treatment for. Elevated PSA Patient Survey You may receive a survey via text or e-mail asking about your office visit. Please share your experience with us by completing your survey. We appreciate your feedback and thank you for choosing us for your care. Education Materials Prostate Cancer Screening Prostate cancer screening is testing that is done to check for the presence of prostate cancer in men. The prostate gland is a walnut-sized gland that is located below the bladder and in front of the rectum in males. The function of the prostate is to add fluid to semen during ejaculation. Prostate cancer is one of the most common types of cancer in men. Who should have prostate cancer screening? Screening recommendations vary based on age and other ri (more content not included)... Normal [facility] Ambulatory Visit Summary Ambulatory Visit Summary ALEN CALDERON :1965 Visit Date:10/11/2024 Ambulatory Visit Instructions Your Diagnosis Rising PSA following treatment for malignant neoplasm of prostate Prostate cancer BPH with urinary obstruction Impotence Your Care Team Attending Physician - KAYDEN URBINA, Abner Mojica Primary Care Physician - CHARLY HOOPER DO This Is Your Medications List tadalafil (tadalafil 20 mg Tab) Contact prescribing physician if questions or concerns amiodarone (amiodarone 200 mg Tab) amlodipine (amLODIPine 10 mg Tab) apixaban (Eliquis 5 mg oral tablet) carvedilol (carvedilol 25 mg Tab) furosemide (furosemide 40 mg Tab) losartan (losartan 100 mg Tab) Procedures Performed Radiation therapy care (2023), Seed implantation into prostate (09/09/2019), Transrectal biopsy of prostate using ultrasound (US) guidance (07/20/2019), Transrectal biopsy of prostate using ultrasound (US) guidance (08/11/2018), Cardiac ablation using fluoroscopy guidance, Carpal tunnel decompression, Cholecystectomy, History of hernia repair, Vasectomy. Discharge Vitals Temperature (Temporal Artery) 37 ???C Heart Rate (Peripheral) 72 Respiratory Rate 16 Blood Pressure 134/79 Height 177 cm Height 70 in Weight 108.7 kg Weight 239.642 lb BMI 34.7 What to do next Scheduled Follow-Up Appointments Friday 8:00 AM EDT With: Where: [facility] [address] [place] [address]- Friday2025 8:00 AM EDT With: Where: [facility] [address] [address]- Friday2025 8:45 AM EDT With: Abner MONIQUE MD Where: [facility] [address] [place] [address]- You Need to Schedule the Following Appointments Follow Up with Abner MONIQUE MD, URL When: Comments: PSA in 6 mos, f/u in 1 yr w/ another PSA Where: [facility] [address] [place] [address], [place] [address]- [phone] You Need to Complete the Following PSA Total, Blood, Routine collect, *Est. 04/13/25 +/- 28 day(s), Order for future visit, Lab Collect, Rising PSA following treatment for malignant neoplasm of prostate Prostate cancer, Print Label By Order Location PSA Total, Blood, Routine collect, *Est. 10/11/25 +/- 28 day(s), Order for future visit, Lab Collect, Rising PSA following treatment for malignant neoplasm of prostate Prostate cancer, Print Label By Order Location Medications What How Much When Why Instructions Unchanged tadalafil (tadalafil 20 mg Tab) 1 Tablets By Mouth As Directed as needed for for erectile dysfunction Impotence Take one pill 1 hour prior to sexual activity. Pickup at [facility]/pharmacy #[id number] Unchanged amiodarone (amiodarone 200 mg Tab) By Mouth Every day Contact prescribing physician if questions or concerns Unchanged amlodipine (amLODIPine 10 mg Tab) Contact prescribing physician if questions or concerns Unchanged apixaban (Eliquis 5 mg oral tablet) Contact prescribing physician if questions or concerns Unchanged carvedilol (carvedilol 25 mg Tab) Contact prescribing physician if questions or concerns Unchanged furosemide (furosemide 40 mg Tab) Contact prescribing physician if questions or concerns Unchanged losartan (losartan 100 mg Tab) Contact prescribing physician if questions or concerns Pharmacy Information [facility]/pharmacy #[id number]: [address], [place] [phone] Allergies oxyCODONE (Itch) Problems Ongoing - Any problem that you are currently receiving treatment for. Anticoagulated Atrial fibrillation BMI 35.0-35.9,adult BPH with urinary obstruction Elevated cholesterol Family history of prostate cancer Former smoker Gastroesophageal reflux Glaucoma History of prostate cancer Hypertension Impotence Microhematuria Nocturia Organic impotence Prostate cancer Rising PSA following treatment for malignant neoplasm of prostate Historical - Any problem that you are no longer receiving treatment for. Elevated PSA Patient Survey You may receive a survey via text or e-mail asking about your office visit. Please share your experience with us by completing your survey. We appreciate your feedback and thank you for choosing us for your care. Education Materials Prostate Cancer Screening Prostate cancer screening is testing that is done to check for the presence of prostate cancer in men. The prostate gland is a walnut-sized gland that is located below the bladder and in front of the rectum in males. The function of the prostate is to add fluid to semen during ejaculation. Prostate cancer is one of the most common types of cancer in men. Who should have prostate cancer screening? Screening recommendations vary based on age and other ri (more content not included)... Normal [facility] Urology Office/Clinic Noteon 10-11-2024 Urology Office/Clinic Note Urology Office/Clinic Note Chief Complaint 1 year with PSA HPI Staff 59 yr old male here for 1 year with PSA. Previous dx of hx of prostate cancer (Brachytherapy 09/09/19), BPH with urinary obstruction, family hx of prostate cancer (father) and organic impotence. PSA 07/11/23 - 0.41 07/16/22 - 0.19 07/19/24 - 1.12 IPSS score today is 5. Pt states no urinary complaints at this time. History of Present Illness Tests reviewed: reviewed [...] See HPI. Physical Exam Vitals & Measurements T: 37 ???C(Temporal Artery) HR: 72(Peripheral) RR: 16 BP: 134/79 HT: 177 cm HT: 70 in WT: 108.7 kg WT: 239.642 lb BMI: 34.7 General Appearance: alert, no distress, well nourished, well developed male. 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 Follows w Dr. Nowak every 6 wks and has plans to see Dr. Muñoz next month. 1. Rising PSA following treatment for malignant neoplasm of prostate (R97.21: Rising PSA following treatment for malignant neoplasm of prostate) PSA 01/19/21 - 0.74 07/17/21 - 0.3 07/16/22 - 0.19 07/11/23 - 0.41 02/09/24 - 0.75 07/19/24 - 1.12 S/p TRUS/bx 07/20/19 - GS 6 (3+3) in 4 cores. GG1. 2 MARK cores. 8% highest percent core involvement. No cribriform pattern present. Initial PSA 4.34. Brachytherapy 09/09/19. PSA has increased from prior. Has been around this level shortly after tx. Advised pt we will monitor level closely, q6m. -PSA in 6 mos, will call pt w results -F/u in 1 yr w/ another PSA 2. Prostate cancer (C61: Malignant neoplasm of prostate) See #1. 3. BPH with urinary obstruction (N40.1: Benign prostatic hyperplasia with lower urinary tract symptoms) IPSS 5. UA today negative for blood and infection. Not currently taking BPH medications. Not voicing any urinary habit complaints. 4. Impotence (N52.9: Male erectile dysfunction, unspecified) Took Sildenafil 100mg prn in the past. Pt did try taking 2 pills at once. D/c Sildenafil as it did not work well and dosage being unsafe. Taking Tadalafil 20mg prn. No concerns at this time. -Cont tadalafil 20mg prn. Rx sent to [facility] [place]. -Try vacuum device -Consider ICI Follow-up With When Contact Information KAYDEN URBINA, Abner R, URL [facility] [address], [place] [phone] Additional Instructions: PSA in 6 mos, f/u in 1 yr w/ another PSA Patient Education Prostate Cancer Screening I, Mihaela Flores, personally scribed for Dr. Monique on 10/11/2024 11:19:33. . Documentation recorded by the scribe, Mihaela Flores, accurately reflects the services(s) I performed and decisions made by me. Authenticated by Dr. Monique on 10/11/2024 11:24:51. Problem List/Past Medical History Ongoing Anticoagulated Atrial fibrillation BMI 35.0-35.9,adult BPH with urinary obstruction Elevated cholesterol Family history of prostate cancer Former smoker Gastroesophageal reflux Glaucoma History of prostate cancer Hypertension Impotence Microhematuria Nocturia Organic impotence Prostate cancer Rising PSA following treatment for malignant neoplasm of prostate Historical Elevated PSA Procedure/Surgical History Radiation therapy care (2023), Seed implantation into prostate (09/09/2019), Transrectal biopsy [...] 40 mg Tab losartan 100 mg Tab tadalafil 20 mg Tab, 20 mg= 1 tab(s), Oral, As Directed, PRN, 3 refills Allergies oxyCODONE (Itch) Social History Alcohol Current. Beer. Daily., 10/08/2024 Substance Abuse Current. Previous treatment: None., 10/08/2024 Tobacco Former smoker, quit more than 30 days ago Tobacco Use:. Never Smokeless Tobacco Use:. Cigarettes, Yes, 10/11/2024 Former smoker, quit more than 30 days ago Tobacco Use:., 01/10/2020 Former smoker, quit more than 3 (more content not included)... Normal [facility] Comment on above: Result Comment: Elec tronically Signed By: Abner MONIQUE MD\.br\Date and Time Signed: 10/11/24 11:24 EDT\.br\Electronically Co-Signed By: Mihaela Flores\.br\Date and Time Co-Signed: 10/11/24 11:19 EDT Influenza A virus antibody t iter by complement fixationon 08-25-2024 FLUAV Ab CF (S) [Titer] Influenza A viru s antibody titer by complement fixation [facility] Influenza virus B Ab [Titer] in Serum by Complement fixationon 08-25-2024 FLUBV Ab CF (S) [Titer] Influenza virus B Ab [Titer] in Serum by Complement fixation [facility] No Panel InformationOrdered By: Katy Mcdonald on 08-25-2024 Quick Strep (POC) [facility] Quick Strep (POC) [facility] No Panel Informationon 08-02 Nadja Escamilla NP 08/02/2024 11:39 AM L Inj/Asp: L knee on 08/02/2024 11:34 AM Indications: pain Details: 20 G needle, anterolateral approach Medications: 40 mg methylPREDNISolone acetate 40 MG/ML UTILIZING ASEPTIC TECHNIQUE PT GIVEN INJECTION IN LEFT KNEE, NEUROVASC INTACT S/P INJ, TOLERATED WELL Procedure, treatment alternatives, risks and benefits explained, specific risks discussed. Consent was given by the patient. [facility] No Panel Informationon 07-19 Prostate Specific Antigen Total 1.12 ng/mL <=4.00 [facility] Glucose Glucometer (BldC) [M ass/Vol]Ordered By: Marbella Muñoz on 06-30-2024 Glucose [Mass/Vol] Capillary blood glucose measurement by glucometer (mass/volume) [facility] Comment on above: Random Glucose Refer ence Range is dependent on time and content of last meal. Glucose of more than 200 mg/dL in a nonstressed, ambulatory subject supports the diagnosis of Diabetes Mellitus. Glucose Poct Glucometerson 1 08-31-2023 Glucose [Mass/Vol] 138 mg/dL Normal [facility] Comment on above: Result Comment: [place] Glucose Reference Range is dependent on time and content of last meal. Glucose of more than 200 mg/dL in a nonstressed, ambulatory subject supports the diagnosis of Diabetes Mellitus. PERFORMED BY: [place] [address] PATHOLOGIST STEREO EQUIPMENT REPAIRER JEREMY FOWLER M.D. Performed By: #### G LULS #### Point of Care testing , PET tumor subq tx strat sb-m ton 06-30-2024 PET tumor subq tx strat sb-mt [facility] Main [place] [address] [place] [address] Nuclear Medicine Report Signed with Addenda Patient: Alen Calderon MR#: [id number] : 1965 Acct:[id number] Age/Sex: 59 / M ADM Date: 06/30/24 Loc: Room: Type: [facility] Attending Dr: Marbella Muñoz MD Copies to: Bruce Serrano II, MD Norleena Poynter, MD Ordering Provider: Marbella Muñoz MD Date of Service: 06/30/24 PET/PET tumor subq tx strat sb-mt: post treatment PET ADDENDUM 1 Blood glucose: 113 mg/dL Impression dictated by: Bruce Serrano M.D.06/30/2024 12:33 PM Dictation Location: [place] [address] Addendum Dictated By: Bruce Serrano II, MD [...] Bruce Serrano M.D.06/30/2024 12:09 PM Dictation Location: [place] [address] Transcribed By: ASHANTI 06/30/24 1209 Dictated By: Bruce Serrano II, MD 06/30/24 1148 Signed By: 06/30/24 1209 Normal [facility] Alanine aminotransferase [En zymatic activity/volume] in Serum or PlasmaOrdered By: Karly Nielsen on 06-07-2024 ALT [Catalytic activity/Vol] Alanine aminotransferase [Enzymatic activity/volume] in Serum or Plasma [facility] Albumin [Mass/volume] in Ser um or Plasma by Bromocresol green (BCG) dye binding methoOrdered By: Karly Nielsen on 06-07-2024 Albumin BCG dye [Mass/Vol] Albumin [Mass/volume] in Serum or Plasma by Bromocresol green (BCG) dye binding metho 3.5-5.7 [facility] Alkaline phosphatase [Enzyma tic activity/volume] in Serum or PlasmaOrdered By: Karly Nielsen on 06-07-2024 ALP [Catalytic activity/Vol] Alkaline phosphatase [Enzymatic activity/volume] in Serum or Plasma 34-104 [facility] Aspartate aminotransferase [ Enzymatic activity/volume] in Serum or PlasmaOrdered By: acosta Nielsen on 06-07-2024 AST [Catalytic activity/Vol] Aspartate aminotransferase [Enzymatic activity/volume] in Serum or Plasma 13-39 [facility] Basophils Auto (Bld) [#/Vol] Ordered By: acosta Nielsen on 06-07-2024 Basophils (Bld) [#/Vol] Automated basoph il count 0.0-0.2 [facility] Basophils/100 WBC Auto (Bld) Ordered By: acosta Nielsen on 06-07-2024 Basophils/100 WBC (Bld) Automated basophil % . [facility] Bilirubin.total [Mass/volume ] in Serum or PlasmaOrdered By: Karly Nielsen on 06-07-2024 Bilirubin [Mass/Vol] Bilirubin.total [Mass/volume] in Serum or Plasma 0.3-1.0 [facility] Calcium [Mass/volume] in Ser um or PlasmaOrdered By: Karly Nielsen on 06-07-2024 Calcium [Mass/Vol] Calcium [Mass/volume ] in Serum or Plasma 8.6-10.3 [facility] Carbon dioxide, total [Moles /volume] in Serum or PlasmaOrdered By: Karly Garcia on 06-07-2024 CO2 [Moles/Vol] Carbon dioxide, tota l [Moles/volume] in Serum or Plasma 21.0-31.0 [facility] Chloride [Moles/volume] in S ray or PlasmaOrdered By: Karly Nielsen on 06-07-2024 Chloride [Moles/Vol] Chloride [Moles/volume] in Serum or Plasma 98-107 [facility] Complete Blood Count Auto Di ffon 06-07-2024 Basophils (Bld) [#/Vol] 0.0 10*3/uL Normal 0.0-0.2 [facility] Comment on above: Result Comment: PERF ORMED BY: [place] [address] PATHOLOGIST [employer] EQUIPMENT REPAIRER JEREMY FOWLER M.D. Performed By: #### C BC, CMP, MG #### [address] Basophils/100 WBC (Bld) 0.6 % Normal . [facility] Comment on above: Performed By: #### C BC, CMP, MG #### [address] Eosinophils (Bld) [#/Vol] 0.2 10*3/uL Normal 0.0-0.45 [facility] Comment on above: Performed By: #### C BC, CMP, MG #### [address] Eosinophils/100 WBC (Bld) 3.7 % Normal . [facility] Comment on above: Performed By: #### C BC, CMP, MG #### [address] Erythrocyte distribution width (RBC) [Ratio] 11.8 % Low 12.0-14.8 [facility] Comment on above: Performed By: #### C BC, CMP, MG #### [address] Hematocrit (Bld) [Volume fraction] 40.6 % Normal 38.8-50.0 [facility] Comment on above: Performed By: #### C BC, CMP, MG #### [place] [address] [place] Hemoglobin (Bld) [Mass/Vol] 14.1 g/dL Normal 13.0-17.0 [facility] Comment on above: Performed By: #### C BC, CMP, MG #### [place] [address] [place] Lymphocytes (Bld) [#/Vol] 0.9 10*3/uL Low 1.00-4.8 [facility] Comment on above: Performed By: #### C BC, CMP, MG #### [address] Lymphocytes/100 WBC (Bld) 19.5 % Normal . [facility] Comment on above: Performed By: #### C BC, CMP, MG #### [address] MCH (RBC) [Entitic mass] 35.8 pg High 27.5-35.2 [facility] Comment on above: Performed By: #### C BC, CMP, MG #### [address] MCV (RBC) [Entitic vol] 103.3 fL High 83.5-101 [facility] Comment on above: Performed By: #### C BC, CMP, MG #### [address] Mean Corpuscular HGB Conc 34.6 g/dL Normal 32.5-35.6 [facility] Comment on above: Performed By: #### C BC, CMP, MG #### [address] Monocytes (Bld) [#/Vol] 0.6 10*3/uL Normal 0.0-0.8 [facility] Comment on above: Performed By: #### C BC, CMP, MG #### [place] [address] [place] Monocytes/100 WBC (Bld) 13.1 % Normal . [facility] Comment on above: Performed By: #### C BC, CMP, MG #### [address] Neutrophils (Bld) [#/Vol] 3.0 10*3/uL Normal 1.8-7.7 [facility] Comment on above: Performed By: #### C BC, CMP, MG #### [address] Neutrophils/100 WBC (Bld) 63.1 % Normal . [facility] Comment on above: Performed By: #### C BC, CMP, MG #### [address] NRBC% 0.1 /100{WBC} Normal 0-0.5 [facility] Comment on above: Performed By: #### C BC, CMP, MG #### [address] Platelet mean volume (Bld) [Entitic vol] 7.4 fL Normal 6.6-10.1 [facility] Comment on above: Performed By: #### C BC, CMP, MG #### [address] Platelets (Bld) [#/Vol] 187 10*3/uL Normal 150-450 [facility] Comment on above: Performed By: #### C BC, CMP, MG #### [address] RBC (Bld) [#/Vol] 3.93 10*6/uL Normal 3.90-5.60 [facility] Comment on above: Performed By: #### C BC, CMP, MG #### [address] WBC (Bld) [#/Vol] 4.8 10*3/uL Normal 4.1-10.5 [facility] Comment on above: Performed By: #### C BC, CMP, MG #### [address] Comprehensive Metabolic Pane robinson 06-07-2024 Albumin [Mass/Vol] 4.3 g/dL Normal 3.5-5.7 [facility] Comment on above: Performed By: #### C BC, CMP, MG #### [address] Albumin/Globulin [Mass ratio] 1.5 {ratio} Normal [facility] Comment on above: Performed By: #### C BC, CMP, MG #### [address] ALP [Catalytic activity/Vol] 47 U/L Normal 34-104 [facility] Comment on above: Performed By: #### C BC, CMP, MG #### [facility] [address] [place] [address] [place] ALT [Catalytic activity/Vol] 16 U/L Normal 7-52 [facility] Comment on above: Performed By: #### C BC, CMP, MG #### [facility] [address] Anion gap [Moles/Vol] 10.1 mmol/L Normal 6.0-15.0 [facility] Comment on above: Performed By: #### C BC, CMP, MG #### [facility] [address] AST [Catalytic activity/Vol] 20 U/L Normal 13-39 [facility] Comment on above: Performed By: #### C BC, CMP, MG #### [facility] [address] [place] [address] [place] Bilirubin [Mass/Vol] 0.4 mg/dL Normal 0.3-1.0 [facility] Comment on above: Performed By: #### C BC, CMP, MG #### [facility] [address] [place] [address] [place] Calcium [Mass/Vol] 10.0 mg/dL Normal 8.6-10.3 [facility] Comment on above: Performed By: #### C BC, CMP, MG #### [facility] [address] [place] [address] [place] Chloride [Moles/Vol] 103 mmol/L Normal 98-107 [facility] Comment on above: Performed By: #### C BC, CMP, MG #### [facility] [address] [place] [id number] [place] CO2 [Moles/Vol] 27.6 mmol/L Normal 21.0-31.0 [facility] Comment on above: Performed By: #### C BC, CMP, MG #### [facility] [address] [place] [id number] [place] Creatinine [Mass/Vol] 0.99 mg/dL Normal 0.70-1.30 [facility] Comment on above: Performed By: #### C BC, CMP, MG #### [address] Creatinine Clr Calc Pharmacy 94.64 Normal [facility] Comment on above: Result Comment: PERF ORMED BY: [place] [address] PATHOLOGIST [employer] EQUIPMENT REPAIRER JEREMY FOWLER M.D. Performed By: #### C BC, CMP, MG #### [address] GFR/1.73 sq M.predicted MDRD (S/P/Bld) [Vol rate/Area] mL/min/{1.73_m2} Normal [facility] Comment on above: Performed By: #### C BC, CMP, MG #### [place] [address] [place] Globulin (S) [Mass/Vol] 2.8 g/dL Normal [facility] Comment on above: Performed By: #### C BC, CMP, MG #### [address] Glucose [Mass/Vol] 108 mg/dL High 70-100 [facility] Comment on above: Result Comment: [place] Glucose Reference Range is dependent on time and content of last meal. Glucose of more than 200 mg/dL in a nonstressed, ambulatory subject supports the diagnosis of Diabetes Mellitus. ADA recommended reference range Performed By: #### C BC, CMP, MG #### [address] Potassium [Moles/Vol] 4.7 mmol/L Normal 3.5-5.1 [facility] Comment on above: Performed By: #### C BC, CMP, MG #### [address] Protein [Mass/Vol] 7.1 g/dL Normal 6.4-8.9 [facility] Comment on above: Performed By: #### C BC, CMP, MG #### [facility] [address] [place] [address] [place] Sodium [Moles/Vol] 136 mmol/L Normal 136-145 [facility] Comment on above: Performed By: #### C BC, CMP, MG #### [facility] [address] Urea nitrogen [Mass/Vol] 20 mg/dL Normal 7-25 [facility] Comment on above: Performed By: #### C BC, CMP, MG #### [facility] [address] [place] [address] [place] Creatinine [Mass/volume] in Serum or PlasmaOrdered By: Karly Nielsen on 06-07-2024 Creatinine [Mass/Vol] Creatinine [Mass/volume] in Serum or Plasma 0.70-1.30 [facility] Eosinophils Auto (Bld) [#/Vo l]Ordered By: acosta Nielsen on 06-07-2024 Eosinophils (Bld) [#/Vol] Automated eosinophil count 0.0-0.45 [facility] Eosinophils/100 WBC Auto (Bl d)Ordered By: acosta Nielsen on 06-07-2024 Eosinophils/100 WBC (Bld) Automated eosinophil % . [facility] Erythrocyte distribution wid th Auto (RBC) [Ratio]Ordered By: acosta Nielsen on 06-07-2024 Erythrocyte distribution width (RBC) [Ratio] Erythrocyte distribution width [Ratio] by Automated count Low 12.0-14.8 [facility] Globulin Calc (S) [Mass/Vol] Ordered By: Karly Nielsen on 06-07-2024 Globulin (S) [Mass/Vol] Serum globulin measurement by calculation (mass/volume) [facility] Glucose [Mass/volume] in Ser um or PlasmaOrdered By: acosta Nielsen on 06-07-2024 Glucose [Mass/Vol] Glucose [Mass/volume ] in Serum or Plasma High 70-100 [facility] Comment on above: ADA recommended refe rence rangeRandom Glucose Reference Range is dependent on time and content of last meal. Glucose of more than 200 mg/dL in a nonstressed, ambulatory subject supports the diagnosis of Diabetes Mellitus. Hematocrit Auto (Bld) [Volum e fraction]Ordered By: Karly Nielsen on 06-07-2024 Hematocrit (Bld) [Volume fraction] Hematocrit [Volume Fraction] of Blood by Automated count 38.8-50.0 [facility] Hemoglobin [Mass/volume] in BloodOrdered By: Karly Nielsen on 06-07-2024 Hemoglobin (Bld) [Mass/Vol] Hemoglobin [Mass/volume] in Blood 13.0-17.0 [facility] Leukocytes [#/volume] correc evelyn for nucleated erythrocytes in Blood by Automated counOrdered By: Karly Nielsen on 06-07-2024 WBC corrected for nucl RBC Auto (Bld) [#/Vol] Leukocytes [#/volume] corrected for nucleated erythrocytes in Blood by Automated coun 4.1-10.5 [facility] Lymphocytes Auto (Bld) [#/Vo l]Ordered By: Karly Nielsen on 06-07-2024 Lymphocytes (Bld) [#/Vol] Lymphocytes [#/volume] in Blood by Automated count Low 1.00-4.8 [facility] Lymphocytes/100 WBC Auto (Bl d)Ordered By: acosta Nielsen on 06-07-2024 Lymphocytes/100 WBC (Bld) Lymphocytes/100 leukocytes in Blood by Automated count . [facility] MCH Auto (RBC) [Entitic mass ]Ordered By: Karly Nielsen on 06-07-2024 MCH (RBC) [Entitic mass] MCH [Entitic mass] by Automated count High 27.5-35.2 [facility] MCHC Auto (RBC) [Mass/Vol]Or dered By: Karly ObrienRadha on 06-07-2024 MCHC (RBC) [Mass/Vol] MCHC [Mass/volume] by Automated count 32.5-35.6 [facility] MCV Auto (RBC) [Entitic vol] Ordered By: Karly Nielsen on 06-07-2024 MCV (RBC) [Entitic vol] MCV [Entitic vol ume] by Automated count High 83.5-101 [facility] Magnesiumon 11-18-2024 Magnesium [Mass/Vol] 2.0 mg/dL Normal 1.9-2.7 [facility] Comment on above: Result Comment: PERF ORMED BY: [facility] [address] [place] [address] PATHOLOGIST [employer]ERE[employer] EQUIPMENT REPAIRER JEREMY FOWLER M.D. Performed By: #### C BC, CMP, MG #### [facility] [address] Magnesium [Mass/volume] in S ray or PlasmaOrdered By: Karly Nielsen on 06-07-2024 Magnesium [Mass/Vol] Magnesium [Mass/volume] in Serum or Plasma 1.9-2.7 [facility] Monocytes Auto (Bld) [#/Vol] Ordered By: Karly Nielsen on 06-07-2024 Monocytes (Bld) [#/Vol] Automated blood monocyte count 0.0-0.8 [facility] Monocytes/100 WBC Auto (Bld) Ordered By: acosta Nielsen on 06-07-2024 Monocytes/100 WBC (Bld) Automated monocyte % . [facility] Neutrophils Auto (Bld) [#/Vo l]Ordered By: acosta Nielsen on 06-07-2024 Neutrophils (Bld) [#/Vol] Neutrophils [#/volume] in Blood by Automated count 1.8-7.7 [facility] Neutrophils/100 WBC Auto (Bl d)Ordered By: acosta Nielsen on 06-07-2024 Neutrophils/100 WBC (Bld) Automated neutrophil % . [facility] No Panel InformationOrdered By: Karly Nielsen on 06-07-2024 Estimated GFR (CKD-EPI) > 60.0 mL/Min [facility] Pharmacy Creatinine Clearance (Chem 94.64 [facility] Nucleated erythrocytes [Pres ence] in Blood by Automated countOrdered By: Karly Nielsen on 06-07-2024 Nucleated RBC Auto Ql (Bld) Nucleated erythrocytes [Presence] in Blood by Automated count 0-0.5 [facility] Platelet mean volume Auto (B ld) [Entitic vol]Ordered By: Karly Nielsen on 06-07-2024 Platelet mean volume (Bld) [Entitic vol] Platelet mean volume [Entitic volume] in Blood by Automated count 6.6-10.1 [facility] Platelets Auto (Bld) [#/Vol] Ordered By: Karly Nielsen on 06-07-2024 Platelets (Bld) [#/Vol] Platelets [#/vol ume] in Blood by Automated count 150-450 [facility] Potassium [Moles/volume] in Serum or PlasmaOrdered By: Karly Nielsen on 06-07-2024 Potassium [Moles/Vol] Potassium [Moles/volume] in Serum or Plasma 3.5-5.1 [facility] Protein [Mass/volume] in Ser um or PlasmaOrdered By: Karly Nielsen on 06-07-2024 Protein [Mass/Vol] Protein [Mass/volume ] in Serum or Plasma 6.4-8.9 [facility] RBC Auto (Bld) [#/Vol]Ordere d By: Karly Nielsen on 06-07-2024 RBC (Bld) [#/Vol] Erythrocytes [#/volume] in Blood by Automated count 3.90-5.60 [facility] Serum or plasma albumin/glob ulin mass ratioOrdered By: Karly Nielsen on 06-07-2024 Albumin/Globulin [Mass ratio] Serum or plasma albumin/globulin mass ratio [facility] Serum or plasma anion gap de terminationOrdered By: Karly Nielsen on 06-07-2024 Anion gap [Moles/Vol] Serum or plasma an ion gap determination 6.0-15.0 [facility] Sodium [Moles/volume] in Ser um or PlasmaOrdered By: Karly Nielsen on 06-07-2024 Sodium [Moles/Vol] Sodium [Moles/volume ] in Serum or Plasma 136-145 [facility] Urea nitrogen [Mass/volume] in Serum or PlasmaOrdered By: Karly Nielsen on 06-07-2024 Urea nitrogen [Mass/Vol] Urea nitrogen [Mass/volume] in Serum or Plasma 7-25 [facility] WBC Auto (Bld) [#/Vol]Ordere d By: Mhacosta Morales on 06-07-2024 WBC (Bld) [#/Vol] Leukocytes [#/volume ] in Blood by Automated count 4.1-10.5 [facility] Complete Blood Count Auto Di ffon 05-05-2024 Basophils (Bld) [#/Vol] 0.0 10*3/uL Normal 0.0-0.2 [facility] Comment on above: Result Comment: PERF ORMED BY: [place] [address] PATHOLOGIST [employer] EQUIPMENT REPAIRER CHANDAN WINSTON M.D. Performed By: #### C MP, MG #### [address] Basophils/100 WBC (Bld) 0.8 % Normal . [facility] Comment on above: Performed By: #### C MP, MG #### [address] Eosinophils (Bld) [#/Vol] 0.2 10*3/uL Normal 0.0-0.45 [facility] Comment on above: Performed By: #### C MP, MG #### [address] Eosinophils/100 WBC (Bld) 4.9 % Normal . [facility] Comment on above: Performed By: #### C MP, MG #### [address] Erythrocyte distribution width (RBC) [Ratio] 14.3 % Normal 12.0-14.8 [facility] Comment on above: Performed By: #### C MP, MG #### [address] Hematocrit (Bld) [Volume fraction] 36.7 % Low 38.8-50.0 [facility] Comment on above: Performed By: #### C MP, MG #### [address] Hemoglobin (Bld) [Mass/Vol] 12.9 g/dL Low 13.0-17.0 [facility] Comment on above: Performed By: #### C MP, MG #### [facility] [address] Lymphocytes (Bld) [#/Vol] 0.7 10*3/uL Low 1.00-4.8 [facility] Comment on above: Performed By: #### C MP, MG #### [facility] [address] Lymphocytes/100 WBC (Bld) 15.3 % Normal . [facility] Comment on above: Performed By: #### C MP, MG #### [address] MCH (RBC) [Entitic mass] 37.9 pg High 27.5-35.2 [facility] Comment on above: Performed By: #### C MP, MG #### [address] MCV (RBC) [Entitic vol] 107.5 fL High 83.5-101 [facility] Comment on above: Performed By: #### C MP, MG #### [address] Mean Corpuscular HGB Conc 35.2 g/dL Normal 32.5-35.6 [facility] Comment on above: Performed By: #### C MP, MG #### [address] Monocytes (Bld) [#/Vol] 0.6 10*3/uL Normal 0.0-0.8 [facility] Comment on above: Performed By: #### C MP, MG #### [address] Monocytes/100 WBC (Bld) 12.8 % Normal . [facility] Comment on above: Performed By: #### C MP, MG #### [address] Neutrophils (Bld) [#/Vol] 3.2 10*3/uL Normal 1.8-7.7 [facility] Comment on above: Performed By: #### C MP, MG #### [facility] [address] Neutrophils/100 WBC (Bld) 66.2 % Normal . [facility] Comment on above: Performed By: #### C MP, MG #### [facility] [address] NRBC% 0.1 /100{WBC} Normal 0-0.5 [facility] Comment on above: Performed By: #### C MP, MG #### [facility] [address] Platelet mean volume (Bld) [Entitic vol] 7.1 fL Normal 6.6-10.1 [facility] Comment on above: Performed By: #### C MP, MG #### [facility] [address] Platelets (Bld) [#/Vol] 207 10*3/uL Normal 150-450 [facility] Comment on above: Performed By: #### C MP, MG #### [facility] [address] RBC (Bld) [#/Vol] 3.42 10*6/uL Low 3.90-5.60 [facility] Comment on above: Performed By: #### C MP, MG #### [facility] [address] WBC (Bld) [#/Vol] 4.9 10*3/uL Normal 4.1-10.5 [facility] Comment on above: Performed By: #### C MP, MG #### [address] Comprehensive Metabolic Pane robinson 05-05-2024 Albumin [Mass/Vol] 4.0 g/dL Normal 3.5-5.7 [facility] Comment on above: Performed By: #### C MP, MG #### [address] Albumin/Globulin [Mass ratio] 1.4 {ratio} Normal [facility] Comment on above: Performed By: #### C MP, MG #### [address] ALP [Catalytic activity/Vol] 52 U/L Normal 34-104 [facility] Comment on above: Performed By: #### C MP, MG #### [place] [address] [place] ALT [Catalytic activity/Vol] 15 U/L Normal 7-52 [facility] Comment on above: Performed By: #### C MP, MG #### [address] Anion gap [Moles/Vol] 9.1 mmol/L Normal 6.0-15.0 [facility] Comment on above: Performed By: #### C MP, MG #### [address] AST [Catalytic activity/Vol] 24 U/L Normal 13-39 [facility] Comment on above: Performed By: #### C MP, MG #### [place] [address] [place] Bilirubin [Mass/Vol] 0.6 mg/dL Normal 0.3-1.0 [facility] Comment on above: Performed By: #### C MP, MG #### [place] [address] [place] Calcium [Mass/Vol] 9.7 mg/dL Normal 8.6-10.3 [facility] Comment on above: Performed By: #### C MP, MG #### [place] [address] [place] Chloride [Moles/Vol] 105 mmol/L Normal 98-107 [facility] Comment on above: Performed By: #### C MP, MG #### [place] [address] [place] CO2 [Moles/Vol] 29.3 mmol/L Normal 21.0-31.0 [facility] Comment on above: Performed By: #### C MP, MG #### [address] Creatinine [Mass/Vol] 0.94 mg/dL Normal 0.70-1.30 [facility] Comment on above: Performed By: #### C MP, MG #### [address] Creatinine Clr Calc Pharmacy 99.67 Normal [facility] Comment on above: Performed By: #### C MP, MG #### [place] [address] [place] GFR/1.73 sq M.predicted MDRD (S/P/Bld) [Vol rate/Area] mL/min/{1.73_m2} Normal [facility] Comment on above: Performed By: #### C MP, MG #### [address] Globulin (S) [Mass/Vol] 2.8 g/dL Normal [facility] Comment on above: Performed By: #### C MP, MG #### [address] Glucose [Mass/Vol] 103 mg/dL High 70-100 [facility] Comment on above: Result Comment: [place] Glucose Reference Range is dependent on time and content of last meal. Glucose of more than 200 mg/dL in a nonstressed, ambulatory subject supports the diagnosis of Diabetes Mellitus. ADA recommended reference range Performed By: #### C MP, MG #### [address] Potassium [Moles/Vol] 4.4 mmol/L Normal 3.5-5.1 [facility] Comment on above: Performed By: #### C MP, MG #### [address] Protein [Mass/Vol] 6.8 g/dL Normal 6.4-8.9 [facility] Comment on above: Performed By: #### C MP, MG #### [place] [address] [place] Sodium [Moles/Vol] 139 mmol/L Normal 136-145 [facility] Comment on above: Performed By: #### C MP, MG #### [address] Urea nitrogen [Mass/Vol] 13 mg/dL Normal 7-25 [facility] Comment on above: Performed By: #### C MP, MG #### [address] Magnesiumon 05-05-2024 Magnesium [Mass/Vol] 1.9 mg/dL Normal 1.9-2.7 [facility] Comment on above: Result Comment: PERF ORMED BY: [place] [address] PATHOLOGIST [employer] EQUIPMENT REPAIRER CHANDAN WINSTON M.D. Performed By: #### C MP, MG #### [address] Complete Blood Count Auto Di ffon 04-16-2024 Basophils (Bld) [#/Vol] 0.0 10*3/uL Normal 0.0-0.2 [facility] Comment on above: Result Comment: PERF ORMED BY: [place] [address] PATHOLOGIST STEREO EQUIPMENT REPAIRER CHANDAN WINSTON M.D. Performed By: #### C BC, CMP, MG #### [place] [address] [place] Basophils/100 WBC (Bld) 1.0 % Normal . [facility] Comment on above: Performed By: #### C BC, CMP, MG #### [place] [address] [place] Eosinophils (Bld) [#/Vol] 0.2 10*3/uL Normal 0.0-0.45 [facility] Comment on above: Performed By: #### C BC, CMP, MG #### [place] [address] [place] Eosinophils/100 WBC (Bld) 6.5 % Normal . [facility] Comment on above: Performed By: #### C BC, CMP, MG #### [address] Erythrocyte distribution width (RBC) [Ratio] 20.1 % High 12.0-14.8 [facility] Comment on above: Performed By: #### C BC, CMP, MG #### [address] Hematocrit (Bld) [Volume fraction] 30.2 % Low 38.8-50.0 [facility] Comment on above: Performed By: #### C BC, CMP, MG #### [address] Hemoglobin (Bld) [Mass/Vol] 10.6 g/dL Low 13.0-17.0 [facility] Comment on above: Performed By: #### C BC, CMP, MG #### [address] Lymphocytes (Bld) [#/Vol] 0.6 10*3/uL Low 1.00-4.8 [facility] Comment on above: Performed By: #### C BC, CMP, MG #### [address] Lymphocytes/100 WBC (Bld) 14.4 % Normal . [facility] Comment on above: Performed By: #### C BC, CMP, MG #### [address] MCH (RBC) [Entitic mass] 36.2 pg High 27.5-35.2 [facility] Comment on above: Performed By: #### C BC, CMP, MG #### [address] MCV (RBC) [Entitic vol] 103.4 fL High 83.5-101 [facility] Comment on above: Performed By: #### C BC, CMP, MG #### [address] Mean Corpuscular HGB Conc 35.0 g/dL Normal 32.5-35.6 [facility] Comment on above: Performed By: #### C BC, CMP, MG #### [facility] [address] [place] [address] [place] Monocytes (Bld) [#/Vol] 0.6 10*3/uL Normal 0.0-0.8 [facility] Comment on above: Performed By: #### C BC, CMP, MG #### [facility] [address] [place] [address] [place] Monocytes/100 WBC (Bld) 16.0 % Normal . [facility] Comment on above: Performed By: #### C BC, CMP, MG #### [facility] [address] [place] [address] [place] Neutrophils (Bld) [#/Vol] 2.4 10*3/uL Normal 1.8-7.7 [facility] Comment on above: Performed By: #### C BC, CMP, MG #### [place] [address] [place] Neutrophils/100 WBC (Bld) 62.1 % Normal . [facility] Comment on above: Performed By: #### C BC, CMP, MG #### [place] [address] [place] NRBC% 0.2 /100{WBC} Normal 0-0.5 [facility] Comment on above: Performed By: #### C BC, CMP, MG #### [facility] [address] [place] [address] [place] Platelet mean volume (Bld) [Entitic vol] 7.2 fL Normal 6.6-10.1 [facility] Comment on above: Performed By: #### C BC, CMP, MG #### [facility] [address] [place] [address] [place] Platelets (Bld) [#/Vol] 193 10*3/uL Normal 150-450 [facility] Comment on above: Performed By: #### C BC, CMP, MG #### [place] [address] [place] RBC (Bld) [#/Vol] 2.93 10*6/uL Low 3.90-5.60 [facility] Comment on above: Performed By: #### C BC, CMP, MG #### [address] WBC (Bld) [#/Vol] 3.8 10*3/uL Low 4.1-10.5 [facility] Comment on above: Performed By: #### C BC, CMP, MG #### [address] Comprehensive Metabolic Pane robinson 04-16-2024 Albumin [Mass/Vol] 3.7 g/dL Normal 3.5-5.7 [facility] Comment on above: Performed By: #### C BC, CMP, MG #### [address] Albumin/Globulin [Mass ratio] 1.4 {ratio} Normal [facility] Comment on above: Performed By: #### C BC, CMP, MG #### [address] ALP [Catalytic activity/Vol] 46 U/L Normal 34-104 [facility] Comment on above: Performed By: #### C BC, CMP, MG #### [address] ALT [Catalytic activity/Vol] 18 U/L Normal 7-52 [facility] Comment on above: Performed By: #### C BC, CMP, MG #### [address] Anion gap [Moles/Vol] 10.4 mmol/L Normal 6.0-15.0 [facility] Comment on above: Performed By: #### C BC, CMP, MG #### [address] AST [Catalytic activity/Vol] 24 U/L Normal 13-39 [facility] Comment on above: Performed By: #### C BC, CMP, MG #### [address] [place] [address] [place] Bilirubin [Mass/Vol] 0.8 mg/dL Normal 0.3-1.0 [facility] Comment on above: Performed By: #### C BC, CMP, MG #### [address] Calcium [Mass/Vol] 9.3 mg/dL Normal 8.6-10.3 [facility] Comment on above: Performed By: #### C BC, CMP, MG #### [address] Chloride [Moles/Vol] 102 mmol/L Normal 98-107 [facility] Comment on above: Performed By: #### C BC, CMP, MG #### [address] CO2 [Moles/Vol] 30.3 mmol/L Normal 21.0-31.0 [facility] Comment on above: Performed By: #### C BC, CMP, MG #### [address] Creatinine [Mass/Vol] 0.91 mg/dL Normal 0.70-1.30 [facility] Comment on above: Performed By: #### C BC, CMP, MG #### [address] Creatinine Clr Calc Pharmacy 102.96 Normal [facility] Comment on above: Performed By: #### C BC, CMP, MG #### [address] GFR/1.73 sq M.predicted MDRD (S/P/Bld) [Vol rate/Area] mL/min/{1.73_m2} Normal [facility] Comment on above: Performed By: #### C BC, CMP, MG #### [address] Globulin (S) [Mass/Vol] 2.7 g/dL Normal [facility] Comment on above: Performed By: #### C BC, CMP, MG #### [address] Glucose [Mass/Vol] 120 mg/dL High 70-100 [facility] Comment on above: Result Comment: [place] Glucose Reference Range is dependent on time and content of last meal. Glucose of more than 200 mg/dL in a nonstressed, ambulatory subject supports the diagnosis of Diabetes Mellitus. ADA recommended reference range Performed By: #### C BC, CMP, MG #### [address] Potassium [Moles/Vol] 3.7 mmol/L Normal 3.5-5.1 [facility] Comment on above: Performed By: #### C BC, CMP, MG #### [address] Protein [Mass/Vol] 6.4 g/dL Normal 6.4-8.9 [facility] Comment on above: Performed By: #### C BC, CMP, MG #### [address] Sodium [Moles/Vol] 139 mmol/L Normal 136-145 [facility] Comment on above: Performed By: #### C BC, CMP, MG #### [address] Urea nitrogen [Mass/Vol] 13 mg/dL Normal 7-25 [facility] Comment on above: Performed By: #### C BC, CMP, MG #### [address] Magnesiumon 04-16-2024 Magnesium [Mass/Vol] 1.7 mg/dL Low 1.9-2.7 [facility] Comment on above: Result Comment: PERF ORMED BY: [place] [address] PATHOLOGIST STEREO EQUIPMENT REPAIRER CHANDAN WINSTON M.D. Performed By: #### C BC, CMP, MG #### [address] Alanine aminotransferase [En zymatic activity/volume] in Serum or PlasmaOrdered By: Karly Nielsen on 04-06-2024 ALT [Catalytic activity/Vol] 29 U/L Normal 7-52 [facility] Comment on above: Performed By: #### C BC, CMP, MG #### [address] Albumin [Mass/volume] in Ser um or Plasma by Bromocresol green (BCG) dye binding methoOrdered By: Karly ObrienRositaTamannamicheal on 04-06-2024 Albumin BCG dye [Mass/Vol] 3.7 g/dL 3.5-5.7 [facility] Alkaline phosphatase [Enzyma tic activity/volume] in Serum or PlasmaOrdered By: Karly Encarnacionmicheal on 04-06-2024 ALP [Catalytic activity/Vol] 45 U/L Normal 34-104 [facility] Comment on above: Performed By: #### C BC, CMP, MG #### [address] Aspartate aminotransferase [ Enzymatic activity/volume] in Serum or PlasmaOrdered By: Supaacosta RiveraTamannamicheal on 04-06-2024 AST [Catalytic activity/Vol] 35 U/L Normal 13-39 [facility] Comment on above: Performed By: #### C BC, CMP, MG #### [address] Automated basophil %Ordered By: Karly Nielsen on 04-06-2024 Basophils/100 WBC (Bld) 1.0 % Normal . [facility] Comment on above: Performed By: #### C BC, CMP, MG #### [address] Automated basophil countOrde red By: Supaacosta RiveraTamannamicheal on 04-06-2024 Basophils (Bld) [#/Vol] 0.0 10*3/uL Normal 0.0-0.2 [facility] Comment on above: Result Comment: PERF ORMED BY: [place] [address] PATHOLOGIST STEREO EQUIPMENT REPAIRER CHANDAN WINSTON M.D. Performed By: #### C BC, CMP, MG #### [address] Automated blood monocyte cou ntOrdered By: Supad Al-Tamannaraandria on 04-06-2024 Monocytes (Bld) [#/Vol] 0.7 10*3/uL Normal 0.0-0.8 [facility] Comment on above: Performed By: #### C BC, CMP, MG #### [address] Automated eosinophil %Ordere d By: d Al-Marrawi on 04-06-2024 Eosinophils/100 WBC (Bld) 3.3 % Normal . [facility] Comment on above: Performed By: #### C BC, CMP, MG #### [address] Automated eosinophil countOr dered By: d Al-Marraandria on 04-06-2024 Eosinophils (Bld) [#/Vol] 0.1 10*3/uL Normal 0.0-0.45 [facility] Comment on above: Performed By: #### C BC, CMP, MG #### [address] Automated monocyte %Ordered By: d Al-Marraandria on 04-06-2024 Monocytes/100 WBC (Bld) 19.4 % Normal . [facility] Comment on above: Performed By: #### C BC, CMP, MG #### [address] Automated neutrophil %Ordere d By: d Al-Marrawi on 04-06-2024 Neutrophils/100 WBC (Bld) 65.5 % Normal . [facility] Comment on above: Performed By: #### C BC, CMP, MG #### [address] Bilirubin.total [Mass/volume ] in Serum or PlasmaOrdered By: Supad Al-Marrawi on 04-06-2024 Bilirubin [Mass/Vol] 0.6 mg/dL Normal 0.3-1.0 [facility] Comment on above: Performed By: #### C BC, CMP, MG #### [facility] [address] [place] [address] Calcium [Mass/volume] in Ser um or PlasmaOrdered By: Kraly Nielsen on 04-06-2024 Calcium [Mass/Vol] 9.3 mg/dL Normal 8.6-10.3 [facility] Comment on above: Performed By: #### C BC, CMP, MG #### [address] Carbon dioxide, total [Moles /volume] in Serum or PlasmaOrdered By: acosta Garcia on 04-06-2024 CO2 [Moles/Vol] 30.7 mmol/L Normal 21.0-31.0 [facility] Comment on above: Performed By: #### C BC, CMP, MG #### [address] Chloride [Moles/volume] in S ray or PlasmaOrdered By: acosta Nielsen on 04-06-2024 Chloride [Moles/Vol] 99 mmol/L Normal 98-107 [facility] Comment on above: Performed By: #### C BC, CMP, MG #### [address] Complete Blood Count Auto Di ffon 04-06-2024 Mean Corpuscular HGB Conc 35.8 g/dL High 32.5-35.6 [facility] Comment on above: Performed By: #### C BC, CMP, MG #### [address] NRBC% 0.1 /100{WBC} Normal 0-0.5 [facility] Comment on above: Performed By: #### C BC, CMP, MG #### [address] Comprehensive Metabolic Pane robinson 04-06-2024 Albumin [Mass/Vol] 3.7 g/dL Normal 3.5-5.7 [facility] Comment on above: Performed By: #### C BC, CMP, MG #### [facility] [address] Creatinine Clr Calc Pharmacy 103.41 Normal [facility] Comment on above: Performed By: #### C BC, CMP, MG #### [facility] [address] GFR/1.73 sq M.predicted MDRD (S/P/Bld) [Vol rate/Area] mL/min/{1.73_m2} Normal [facility] Comment on above: Performed By: #### C BC, CMP, MG #### [address] Creatinine [Mass/volume] in Serum or PlasmaOrdered By: Karly Nielsen on 04-06-2024 Creatinine [Mass/Vol] 0.91 mg/dL Normal 0.70-1.30 [facility] Comment on above: Performed By: #### C BC, CMP, MG #### [address] Erythrocyte distribution wid th [Ratio] by Automated countOrdered By: Karly Garcia on 04-06-2024 Erythrocyte distribution width (RBC) [Ratio] 18.7 % High 12.0-14.8 [facility] Comment on above: Performed By: #### C BC, CMP, MG #### [facility] [address] [place] [address] [place] Erythrocytes [#/volume] in B lood by Automated countOrdered By: Karly Nielsen on 04-06-2024 RBC (Bld) [#/Vol] 2.80 10*6/uL Low 3.90-5.60 [facility] Comment on above: Performed By: #### C BC, CMP, MG #### [place] [address] [place] Glucose [Mass/volume] in Ser um or PlasmaOrdered By: Karly Nielsen on 04-06-2024 Glucose [Mass/Vol] 109 mg/dL High 70-100 [facility] Comment on above: ADA recommended refe rence rangeRandom Glucose Reference Range is dependent on time and content of last meal. Glucose of more than 200 mg/dL in a nonstressed, ambulatory subject supports the diagnosis of Diabetes Mellitus. Result Comment: [place] om Glucose Reference Range is dependent on time and content of last meal. Glucose of more than 200 mg/dL in a nonstressed, ambulatory subject supports the diagnosis of Diabetes Mellitus. ADA recommended reference range Performed By: #### C BC, CMP, MG #### [address] Hematocrit [Volume Fraction] of Blood by Automated countOrdered By: Karly Garcia on 04-06-2024 Hematocrit (Bld) [Volume fraction] 27.6 % Low 38.8-50.0 [facility] Comment on above: Performed By: #### C BC, CMP, MG #### [address] Hemoglobin [Mass/volume] in BloodOrdered By: Karly Nielsen on 04-06-2024 Hemoglobin (Bld) [Mass/Vol] 9.9 g/dL Low 13.0-17.0 [facility] Comment on above: Performed By: #### C BC, CMP, MG #### [address] Leukocytes [#/volume] correc evelyn for nucleated erythrocytes in Blood by Automated counOrdered By: Karly Nielsen on 04-06-2024 WBC corrected for nucl RBC Auto (Bld) [#/Vol] 3.6 10*3/uL Low 4.1-10.5 [facility] Leukocytes [#/volume] in Blo od by Automated countOrdered By: acosta Nielsen on 04-06-2024 WBC (Bld) [#/Vol] 3.6 10*3/uL Low 4.1-10.5 [facility] Comment on above: Performed By: #### C BC, CMP, MG #### [place] [address] [place] Lymphocytes [#/volume] in Bl ood by Automated countOrdered By: Karly Nielsen on 04-06-2024 Lymphocytes (Bld) [#/Vol] 0.4 10*3/uL Low 1.00-4.8 [facility] Comment on above: Performed By: #### C BC, CMP, MG #### [facility] [address] [place] [address] Lymphocytes/100 leukocytes i n Blood by Automated countOrdered By: Karly Nielsen on 04-06-2024 Lymphocytes/100 WBC (Bld) 10.8 % Normal . [facility] Comment on above: Performed By: #### C BC, CMP, MG #### [address] MCH [Entitic mass] by Automa evelyn countOrdered By: Karly Nielsen on 04-06-2024 MCH (RBC) [Entitic mass] 35.3 pg High 27.5-35.2 [facility] Comment on above: Performed By: #### C BC, CMP, MG #### [address] MCHC Auto (RBC) [Mass/Vol]Or dered By: Karly Nielsen on 04-06-2024 MCHC (RBC) [Mass/Vol] 35.8 g/dL High 32.5-35.6 [facility] MCV [Entitic volume] by Auto mated countOrdered By: Karly Nielsen on 04-06-2024 MCV (RBC) [Entitic vol] 98.8 fL Normal 83.5-101 [facility] Comment on above: Performed By: #### C BC, CMP, MG #### [facility] [address] [place] [address] Magnesium [Mass/volume] in S ray or PlasmaOrdered By: Karly Nielsen on 04-06-2024 Magnesium [Mass/Vol] 1.5 mg/dL Low 1.9-2.7 [facility] Comment on above: Result Comment: PERF ORMED BY: [place] [address] PATHOLOGIST STEREO EQUIPMENT REPAIRER CHANDAN WINSTON M.D. Performed By: #### C BC, CMP, MG #### [facility] [address] Neutrophils [#/volume] in Bl ood by Automated countOrdered By: Karly Nielsen on 04-06-2024 Neutrophils (Bld) [#/Vol] 2.4 10*3/uL Normal 1.8-7.7 [facility] Comment on above: Performed By: #### C BC, CMP, MG #### [address] No Panel InformationOrdered By: Karly Nielsen on 04-06-2024 Estimated GFR (CKD-EPI) > 60.0 mL/Min [facility] Creatinine Clearance (Chem 103.41 [facility] Nucleated erythrocytes [Pres ence] in Blood by Automated countOrdered By: Karly Nielsen on 04-06-2024 Nucleated RBC Auto Ql (Bld) 0.1 /100{WBC} 0-0.5 [facility] Platelet mean volume [Entiti c volume] in Blood by Automated countOrdered By: Karly Nielsen on 04-06-2024 Platelet mean volume (Bld) [Entitic vol] 7.6 fL Normal 6.6-10.1 [facility] Comment on above: Performed By: #### C BC, CMP, MG #### [facility] [address] [place] [address] Platelets [#/volume] in Bloo d by Automated countOrdered By: Karly Nielsen on 04-06-2024 Platelets (Bld) [#/Vol] 211 10*3/uL Normal 150-450 [facility] Comment on above: Performed By: #### C BC, CMP, MG #### [address] Potassium [Moles/volume] in Serum or PlasmaOrdered By: Karly Nielsen on 04-06-2024 Potassium [Moles/Vol] 3.7 mmol/L Normal 3.5-5.1 [facility] Comment on above: Performed By: #### C BC, CMP, MG #### [address] Protein [Mass/volume] in Ser um or PlasmaOrdered By: acosta Nielsen on 04-06-2024 Protein [Mass/Vol] 6.3 g/dL Low 6.4-8.9 [facility] Comment on above: Performed By: #### C BC, CMP, MG #### [address] Serum globulin measurement b y calculation (mass/volume)Ordered By: acosta Garcia on 04-06-2024 Globulin (S) [Mass/Vol] 2.6 g/dL Normal [facility] Comment on above: Performed By: #### C BC, CMP, MG #### [address] Serum or plasma albumin/glob ulin mass ratioOrdered By: acosta Nielsen on 04-06-2024 Albumin/Globulin [Mass ratio] 1.4 {ratio} Normal [facility] Comment on above: Performed By: #### C BC, CMP, MG #### [address] Serum or plasma anion gap de terminationOrdered By: acosta Nielsen on 04-06-2024 Anion gap [Moles/Vol] 10.0 mmol/L Normal 6.0-15.0 [facility] Comment on above: Performed By: #### C BC, CMP, MG #### [place] [address] [place] Sodium [Moles/volume] in Ser um or PlasmaOrdered By: acosta Obrien-Radha on 04-06-2024 Sodium [Moles/Vol] 136 mmol/L Normal 136-145 [facility] Comment on above: Performed By: #### C BC, CMP, MG #### [address] Urea nitrogen [Mass/volume] in Serum or PlasmaOrdered By: Karly Nielsen on 04-06-2024 Urea nitrogen [Mass/Vol] 7 mg/dL Normal 7-25 [facility] Comment on above: Performed By: #### C BC, CMP, MG #### [address] Complete Blood Count Auto Di ffon 03-30-2024 Basophils (Bld) [#/Vol] 0.0 10*3/uL Normal 0.0-0.2 [facility] Comment on above: Result Comment: PERF ORMED BY: [place] [address] PATHOLOGIST STEREO EQUIPMENT REPAIRER CHANDAN WINSTON M.D. Performed By: #### C BC, CMP, MG #### [address] Basophils/100 WBC (Bld) 0.7 % Normal . [facility] Comment on above: Performed By: #### C BC, CMP, MG #### [address] Eosinophils (Bld) [#/Vol] 0.0 10*3/uL Normal 0.0-0.45 [facility] Comment on above: Performed By: #### C BC, CMP, MG #### [address] Eosinophils/100 WBC (Bld) 0.9 % Normal . [facility] Comment on above: Performed By: #### C BC, CMP, MG #### [address] Erythrocyte distribution width (RBC) [Ratio] 17.7 % High 12.0-14.8 [facility] Comment on above: Performed By: #### C BC, CMP, MG #### [address] Hematocrit (Bld) [Volume fraction] 26.3 % Low 38.8-50.0 [facility] Comment on above: Performed By: #### C BC, CMP, MG #### [facility] [address] Hemoglobin (Bld) [Mass/Vol] 9.5 g/dL Low 13.0-17.0 [facility] Comment on above: Performed By: #### C BC, CMP, MG #### [address] Lymphocytes (Bld) [#/Vol] 0.5 10*3/uL Low 1.00-4.8 [facility] Comment on above: Performed By: #### C BC, CMP, MG #### [facility] [address] Lymphocytes/100 WBC (Bld) 12.0 % Normal . [facility] Comment on above: Performed By: #### C BC, CMP, MG #### [address] MCH (RBC) [Entitic mass] 34.9 pg Normal 27.5-35.2 [facility] Comment on above: Performed By: #### C BC, CMP, MG #### [address] MCV (RBC) [Entitic vol] 96.9 fL Normal 83.5-101 [facility] Comment on above: Performed By: #### C BC, CMP, MG #### [address] Mean Corpuscular HGB Conc 36.1 g/dL High 32.5-35.6 [facility] Comment on above: Performed By: #### C BC, CMP, MG #### [place] [address] [place] Monocytes (Bld) [#/Vol] 0.6 10*3/uL Normal 0.0-0.8 [facility] Comment on above: Performed By: #### C BC, CMP, MG #### [place] [address] [place] Monocytes/100 WBC (Bld) 15.5 % Normal . [facility] Comment on above: Performed By: #### C BC, CMP, MG #### [facility] [address] [place] [address] [place] Neutrophils (Bld) [#/Vol] 2.9 10*3/uL Normal 1.8-7.7 [facility] Comment on above: Performed By: #### C BC, CMP, MG #### [facility] [address] [place] [id number] [facility] Neutrophils/100 WBC (Bld) 70.9 % Normal . [facility] Comment on above: Performed By: #### C BC, CMP, MG #### [facility] [address] NRBC% 0.2 /100{WBC} Normal 0-0.5 [facility] Comment on above: Performed By: #### C BC, CMP, MG #### [facility] [address] Platelet mean volume (Bld) [Entitic vol] 6.9 fL Normal 6.6-10.1 [facility] Comment on above: Performed By: #### C BC, CMP, MG #### [facility] [address] [place] [address] [place] Platelets (Bld) [#/Vol] 272 10*3/uL Normal 150-450 [facility] Comment on above: Performed By: #### C BC, CMP, MG #### [facility] [address] [place] [address] [place] RBC (Bld) [#/Vol] 2.71 10*6/uL Low 3.90-5.60 [facility] Comment on above: Performed By: #### C BC, CMP, MG #### [facility] [address] [place] [id number] [place] WBC (Bld) [#/Vol] 4.1 10*3/uL Normal 4.1-10.5 [facility] Comment on above: Performed By: #### C BC, CMP, MG #### [facility] [address] Comprehensive Metabolic Pane robinson 09-10-2024 Albumin [Mass/Vol] 3.7 g/dL Normal 3.5-5.7 [facility] Comment on above: Performed By: #### C BC, CMP, MG #### [address] Albumin/Globulin [Mass ratio] 1.5 {ratio} Normal [facility] Comment on above: Performed By: #### C BC, CMP, MG #### [address] ALP [Catalytic activity/Vol] 41 U/L Normal 34-104 [facility] [facility] Comment on above: Performed By: #### C BC, CMP, MG #### [address] ALT [Catalytic activity/Vol] 21 U/L Normal 7-52 [facility] Comment on above: Performed By: #### C BC, CMP, MG #### [address] Anion gap [Moles/Vol] 14.4 mmol/L Normal 6.0-15.0 [facility] Comment on above: Performed By: #### C BC, CMP, MG #### [address] AST [Catalytic activity/Vol] 29 U/L Normal 13-39 [facility] Comment on above: Performed By: #### C BC, CMP, MG #### [address] Bilirubin [Mass/Vol] 0.5 mg/dL Normal 0.3-1.0 [facility] Comment on above: Performed By: #### C BC, CMP, MG #### [address] Calcium [Mass/Vol] 9.1 mg/dL Normal 8.6-10.3 [facility] Comment on above: Performed By: #### C BC, CMP, MG #### [place] [address] [place] Chloride [Moles/Vol] 97 mmol/L Low 98-107 [facility] Comment on above: Performed By: #### C BC, CMP, MG #### [address] CO2 [Moles/Vol] 31.2 mmol/L High 21.0-31.0 [facility] Comment on above: Performed By: #### C BC, CMP, MG #### [address] Creatinine [Mass/Vol] 0.95 mg/dL Normal 0.70-1.30 [facility] Comment on above: Performed By: #### C BC, CMP, MG #### [address] Creatinine Clr Calc Pharmacy 99.06 Normal [facility] Comment on above: Performed By: #### C BC, CMP, MG #### [address] GFR/1.73 sq M.predicted MDRD (S/P/Bld) [Vol rate/Area] mL/min/{1.73_m2} Normal [facility] Comment on above: Performed By: #### C BC, CMP, MG #### [address] Globulin (S) [Mass/Vol] 2.5 g/dL Normal [facility] Comment on above: Performed By: #### C BC, CMP, MG #### [address] Glucose [Mass/Vol] 95 mg/dL Normal 70-100 [facility] Comment on above: Result Comment: [place] Glucose Reference Range is dependent on time and content of last meal. Glucose of more than 200 mg/dL in a nonstressed, ambulatory subject supports the diagnosis of Diabetes Mellitus. ADA recommended reference range Performed By: #### C BC, CMP, MG #### [address] Potassium [Moles/Vol] 3.6 mmol/L Normal 3.5-5.1 [facility] Comment on above: Performed By: #### C BC, CMP, MG #### [address] Protein [Mass/Vol] 6.2 g/dL Low 6.4-8.9 [facility] Comment on above: Performed By: #### C BC, CMP, MG #### [address] Sodium [Moles/Vol] 139 mmol/L Normal 136-145 [facility] Comment on above: Performed By: #### C BC, CMP, MG #### [address] Urea nitrogen [Mass/Vol] 9 mg/dL Normal 7-25 [facility] Comment on above: Performed By: #### C BC, CMP, MG #### [address] Magnesiumon 03-30-2024 Magnesium [Mass/Vol] 1.6 mg/dL Low 1.9-2.7 [facility] Comment on above: Result Comment: PERF ORMED BY: [place] [address] PATHOLOGIST [employer]ERE[employer] EQUIPMENT REPAIRER CHANDAN WINSTON M.D. Performed By: #### C BC, CMP, MG #### [address] Complete Blood Count Auto Di ffon 03-23-2024 Basophils (Bld) [#/Vol] 0.0 10*3/uL Normal 0.0-0.2 [facility] Comment on above: Result Comment: PERF ORMED BY: [place] [address] PATHOLOGIST [employer] EQUIPMENT REPAIRER CHANDAN WINSTON M.D. Performed By: #### C BC, CMP, MG #### [address] Basophils/100 WBC (Bld) 0.7 % Normal . [facility] Comment on above: Performed By: #### C BC, CMP, MG #### [address] Eosinophils (Bld) [#/Vol] 0.0 10*3/uL Normal 0.0-0.45 [facility] Comment on above: Performed By: #### C BC, CMP, MG #### [address] Eosinophils/100 WBC (Bld) 1.2 % Normal . [facility] Comment on above: Performed By: #### C BC, CMP, MG #### [address] Erythrocyte distribution width (RBC) [Ratio] 15.0 % High 12.0-14.8 [facility] Comment on above: Performed By: #### C BC, CMP, MG #### [address] Hematocrit (Bld) [Volume fraction] 26.8 % Low 38.8-50.0 [facility] Comment on above: Performed By: #### C BC, CMP, MG #### [address] Hemoglobin (Bld) [Mass/Vol] 9.6 g/dL Low 13.0-17.0 [facility] Comment on above: Performed By: #### C BC, CMP, MG #### [place] [address] [place] Lymphocytes (Bld) [#/Vol] 0.3 10*3/uL Low 1.00-4.8 [facility] Comment on above: Performed By: #### C BC, CMP, MG #### [place] [address] [place] Lymphocytes/100 WBC (Bld) 12.5 % Normal . [facility] Comment on above: Performed By: #### C BC, CMP, MG #### [address] MCH (RBC) [Entitic mass] 33.7 pg Normal 27.5-35.2 [facility] Comment on above: Performed By: #### C BC, CMP, MG #### [facility] [address] MCV (RBC) [Entitic vol] 94.2 fL Normal 83.5-101 [facility] Comment on above: Performed By: #### C BC, CMP, MG #### [address] Mean Corpuscular HGB Conc 35.8 g/dL High 32.5-35.6 [facility] Comment on above: Performed By: #### C BC, CMP, MG #### [address] Monocytes (Bld) [#/Vol] 0.6 10*3/uL Normal 0.0-0.8 [facility] Comment on above: Performed By: #### C BC, CMP, MG #### [address] Monocytes/100 WBC (Bld) 21.5 % Normal . [facility] Comment on above: Performed By: #### C BC, CMP, MG #### [address] Neutrophils (Bld) [#/Vol] 1.6 10*3/uL Low 1.8-7.7 [facility] Comment on above: Performed By: #### C BC, CMP, MG #### [address] Neutrophils/100 WBC (Bld) 64.1 % Normal . [facility] Comment on above: Performed By: #### C BC, CMP, MG #### [facility] [address] NRBC% 0.1 /100{WBC} Normal 0-0.5 [facility] Comment on above: Performed By: #### C BC, CMP, MG #### [address] Platelet mean volume (Bld) [Entitic vol] 6.9 fL Normal 6.6-10.1 [facility] Comment on above: Performed By: #### C BC, CMP, MG #### [address] Platelets (Bld) [#/Vol] 249 10*3/uL Normal 150-450 [facility] Comment on above: Performed By: #### C BC, CMP, MG #### [address] RBC (Bld) [#/Vol] 2.85 10*6/uL Low 3.90-5.60 [facility] Comment on above: Performed By: #### C BC, CMP, MG #### [address] WBC (Bld) [#/Vol] 2.6 10*3/uL Low 4.1-10.5 [facility] Comment on above: Performed By: #### C BC, CMP, MG #### [address] Comprehensive Metabolic Pane robinson 03-23-2024 Albumin [Mass/Vol] 3.8 g/dL Normal 3.5-5.7 [facility] Comment on above: Performed By: #### C BC, CMP, MG #### [address] Albumin/Globulin [Mass ratio] 1.5 {ratio} Normal [facility] Comment on above: Performed By: #### C BC, CMP, MG #### [address] ALP [Catalytic activity/Vol] 49 U/L Normal 34-104 [facility] Comment on above: Performed By: #### C BC, CMP, MG #### [address] ALT [Catalytic activity/Vol] 26 U/L Normal 7-52 [facility] Comment on above: Performed By: #### C BC, CMP, MG #### [address] Anion gap [Moles/Vol] 15.7 mmol/L High 6.0-15.0 [facility] Comment on above: Performed By: #### C BC, CMP, MG #### [address] AST [Catalytic activity/Vol] 24 U/L Normal 13-39 [facility] Comment on above: Performed By: #### C BC, CMP, MG #### [address] Bilirubin [Mass/Vol] 0.5 mg/dL Normal 0.3-1.0 [facility] Comment on above: Performed By: #### C BC, CMP, MG #### [address] Calcium [Mass/Vol] 8.6 mg/dL Normal 8.6-10.3 [facility] Comment on above: Performed By: #### C BC, CMP, MG #### [address] Chloride [Moles/Vol] 98 mmol/L Normal 98-107 [facility] Comment on above: Performed By: #### C BC, CMP, MG #### [address] CO2 [Moles/Vol] 28.4 mmol/L Normal 21.0-31.0 [facility] Comment on above: Performed By: #### C BC, CMP, MG #### [address] Creatinine [Mass/Vol] 1.25 mg/dL Normal 0.70-1.30 [facility] Comment on above: Performed By: #### C BC, CMP, MG #### [place] [address] [place] Creatinine Clr Calc Pharmacy 75.28 Normal [facility] Comment on above: Performed By: #### C BC, CMP, MG #### [place] [address] [place] GFR/1.73 sq M.predicted MDRD (S/P/Bld) [Vol rate/Area] mL/min/{1.73_m2} Normal [facility] Comment on above: Performed By: #### C BC, CMP, MG #### [address] Globulin (S) [Mass/Vol] 2.6 g/dL Normal [facility] Comment on above: Performed By: #### C BC, CMP, MG #### [address] Glucose [Mass/Vol] 95 mg/dL Normal 70-100 [facility] Comment on above: Result Comment: [facility] [place][note 2] Glucose Reference Range is dependent on time and content of last meal. Glucose of more than 200 mg/dL in a nonstressed, ambulatory subject supports the diagnosis of Diabetes Mellitus. ADA recommended reference range Performed By: #### C BC, CMP, MG #### [address] Potassium [Moles/Vol] 3.1 mmol/L Low 3.5-5.1 [facility] Comment on above: Performed By: #### C BC, CMP, MG #### [address] Protein [Mass/Vol] 6.4 g/dL Normal 6.4-8.9 [facility] Comment on above: Performed By: #### C BC, CMP, MG #### [address] Sodium [Moles/Vol] 139 mmol/L Normal 136-145 [facility] Comment on above: Performed By: #### C BC, CMP, MG #### [address] Urea nitrogen [Mass/Vol] 14 mg/dL Normal 7-25 [facility] Comment on above: Performed By: #### C BC, CMP, MG #### [address] Magnesiumon 03-23-2024 Magnesium [Mass/Vol] 1.2 mg/dL Low 1.9-2.7 [facility] Comment on above: Result Comment: PERF ORMED BY: [place] [address] PATHOLOGIST [employer] EQUIPMENT REPAIRER CHANDAN WINSTON M.D. Performed By: #### C BC, CMP, MG #### [facility] [address] [place] [address] Alanine aminotransferase [En zymatic activity/volume] in Serum or PlasmaOrdered By: Karly Nielsen on 03-15-2024 ALT [Catalytic activity/Vol] 49 U/L Normal 7-52 [facility] Comment on above: Performed By: #### C MP, MG #### [place] [address] [place] Albumin [Mass/volume] in Ser um or Plasma by Bromocresol green (BCG) dye binding methoOrdered By: Karly Nielsen on 03-15-2024 Albumin BCG dye [Mass/Vol] 4.0 g/dL 3.5-5.7 [facility] Alkaline phosphatase [Enzyma tic activity/volume] in Serum or PlasmaOrdered By: Karly Nielsen on 03-15-2024 ALP [Catalytic activity/Vol] 54 U/L Normal 34-104 [facility] Comment on above: Performed By: #### C MP, MG #### [address] Aspartate aminotransferase [ Enzymatic activity/volume] in Serum or PlasmaOrdered By: Karly Nielsen on 03-15-2024 AST [Catalytic activity/Vol] 27 U/L Normal 13-39 [facility] Comment on above: Performed By: #### C MP, MG #### [place] [address] [place] Automated basophil %Ordered By: Karly Nielsen on 03-15-2024 Basophils/100 WBC (Bld) 0.2 % Normal . [facility] Comment on above: Performed By: #### C MP, MG #### [place] [address] [place] Automated basophil countOrde red By: Mhd Al-Marrawi on 03-15-2024 Basophils (Bld) [#/Vol] 0.0 10*3/uL Normal 0.0-0.2 [facility] Comment on above: Result Comment: PERF ORMED BY: [place] [address] PATHOLOGIST [employer] EQUIPMENT REPAIRER CHANDAN WINSTON M.D. Performed By: #### C MP, MG #### [address] Automated blood monocyte cou ntOrdered By: d Al-Marrawi on 03-15-2024 Monocytes (Bld) [#/Vol] 0.7 10*3/uL Normal 0.0-0.8 [facility] Comment on above: Performed By: #### C MP, MG #### [address] Automated eosinophil %Ordere d By: d Al-Marrawi on 03-15-2024 Eosinophils/100 WBC (Bld) 0.3 % Normal . [facility] Comment on above: Performed By: #### C MP, MG #### [address] Automated eosinophil countOr dered By: d Al-Marrawi on 03-15-2024 Eosinophils (Bld) [#/Vol] 0.0 10*3/uL Normal 0.0-0.45 [facility] Comment on above: Performed By: #### C MP, MG #### [address] Automated monocyte %Ordered By: d Al-Marrawi on 03-15-2024 Monocytes/100 WBC (Bld) 22.2 % Normal . [facility] Comment on above: Performed By: #### C MP, MG #### [address] Automated neutrophil %Ordere d By: d Al-Marrawi on 03-15-2024 Neutrophils/100 WBC (Bld) 71.1 % Normal . [facility] Comment on above: Performed By: #### C MP, MG #### [address] Bilirubin.total [Mass/volume ] in Serum or PlasmaOrdered By: acosta Nielsen on 03-15-2024 Bilirubin [Mass/Vol] 0.6 mg/dL Normal 0.3-1.0 [facility] Comment on above: Performed By: #### C MP, MG #### [address] Calcium [Mass/volume] in Ser um or PlasmaOrdered By: acosta Nielsen on 03-15-2024 Calcium [Mass/Vol] 8.9 mg/dL Normal 8.6-10.3 [facility] Comment on above: Performed By: #### C MP, MG #### [address] Carbon dioxide, total [Moles /volume] in Serum or PlasmaOrdered By: acosta Garcia on 03-15-2024 CO2 [Moles/Vol] 29.1 mmol/L Normal 21.0-31.0 [facility] Comment on above: Performed By: #### C MP, MG #### [address] Chloride [Moles/volume] in S ray or PlasmaOrdered By: acosta Nielsen on 03-15-2024 Chloride [Moles/Vol] 97 mmol/L Low 98-107 [facility] Comment on above: Performed By: #### C MP, MG #### [address] Complete Blood Count Auto Di ffon 03-15-2024 Mean Corpuscular HGB Conc 36.4 g/dL High 32.5-35.6 [facility] Comment on above: Performed By: #### C MP, MG #### [address] NRBC% 0.2 /100{WBC} Normal 0-0.5 [facility] Comment on above: Performed By: #### C MP, MG #### [address] Comprehensive Metabolic Pane robinson 03-15-2024 Albumin [Mass/Vol] 4.0 g/dL Normal 3.5-5.7 [facility] Comment on above: Performed By: #### C MP, MG #### [address] Creatinine Clr Calc Pharmacy 90.55 Normal [facility] Comment on above: Performed By: #### C MP, MG #### [address] GFR/1.73 sq M.predicted MDRD (S/P/Bld) [Vol rate/Area] mL/min/{1.73_m2} Normal [facility] Comment on above: Performed By: #### C MP, MG #### [address] Creatinine [Mass/volume] in Serum or PlasmaOrdered By: Karly Nielsen on 03-15-2024 Creatinine [Mass/Vol] 1.06 mg/dL Normal 0.70-1.30 [facility] Comment on above: Performed By: #### C MP, MG #### [address] Erythrocyte distribution wid th [Ratio] by Automated countOrdered By: Karly Garcia on 03-15-2024 Erythrocyte distribution width (RBC) [Ratio] 12.8 % Normal 12.0-14.8 [facility] Comment on above: Performed By: #### C MP, MG #### [facility] [address] [place] [address] Erythrocytes [#/volume] in B lood by Automated countOrdered By: Karly Nielsen on 03-15-2024 RBC (Bld) [#/Vol] 2.89 10*6/uL Low 3.90-5.60 [facility] Comment on above: Performed By: #### C MP, MG #### [address] Glucose [Mass/volume] in Ser um or PlasmaOrdered By: Karly Nielsen on 03-15-2024 Glucose [Mass/Vol] 115 mg/dL High 70-100 [facility] Comment on above: ADA recommended refe rence rangeRandom Glucose Reference Range is dependent on time and content of last meal. Glucose of more than 200 mg/dL in a nonstressed, ambulatory subject supports the diagnosis of Diabetes Mellitus. Result Comment: [place] om Glucose Reference Range is dependent on time and content of last meal. Glucose of more than 200 mg/dL in a nonstressed, ambulatory subject supports the diagnosis of Diabetes Mellitus. ADA recommended reference range Performed By: #### C MP, MG #### [address] Hematocrit [Volume Fraction] of Blood by Automated countOrdered By: Karly Garcia on 03-15-2024 Hematocrit (Bld) [Volume fraction] 27.0 % Low 38.8-50.0 [facility] Comment on above: Performed By: #### C MP, MG #### [address] Hemoglobin [Mass/volume] in BloodOrdered By: Karly Nielsen on 03-15-2024 Hemoglobin (Bld) [Mass/Vol] 9.8 g/dL Low 13.0-17.0 [facility] Comment on above: Performed By: #### C MP, MG #### [address] Leukocytes [#/volume] correc evelyn for nucleated erythrocytes in Blood by Automated counOrdered By: Karly Nielsen on 03-15-2024 WBC corrected for nucl RBC Auto (Bld) [#/Vol] 3.1 10*3/uL Low 4.1-10.5 [facility] Leukocytes [#/volume] in Blo od by Automated countOrdered By: Karly Nielsen on 03-15-2024 WBC (Bld) [#/Vol] 3.1 10*3/uL Low 4.1-10.5 [facility] Comment on above: Performed By: #### C MP, MG #### [address] Lymphocytes [#/volume] in Bl ood by Automated countOrdered By: Karly Nielsen on 03-15-2024 Lymphocytes (Bld) [#/Vol] 0.2 10*3/uL Low 1.00-4.8 [facility] Comment on above: Performed By: #### C MP, MG #### [address] Lymphocytes/100 leukocytes i n Blood by Automated countOrdered By: Karly Nielsen on 03-15-2024 Lymphocytes/100 WBC (Bld) 6.2 % Normal . [facility] Comment on above: Performed By: #### C MP, MG #### [address] MCH [Entitic mass] by Automa evelyn countOrdered By: acosta Nielsen on 03-15-2024 MCH (RBC) [Entitic mass] 34.0 pg Normal 27.5-35.2 [facility] Comment on above: Performed By: #### C MP, MG #### [address] MCHC Auto (RBC) [Mass/Vol]Or dered By: Karly Nielsen on 03-15-2024 MCHC (RBC) [Mass/Vol] 36.4 g/dL High 32.5-35.6 [facility] MCV [Entitic volume] by Auto mated countOrdered By: Karly Nielsen on 03-15-2024 MCV (RBC) [Entitic vol] 93.5 fL Normal 83.5-101 [facility] Comment on above: Performed By: #### C MP, MG #### [address] Magnesium [Mass/volume] in S ray or PlasmaOrdered By: Karly Nielsen on 03-15-2024 Magnesium [Mass/Vol] 1.0 mg/dL Low 1.9-2.7 [facility] Comment on above: Result Comment: PERF ORMED BY: [place] [address] PATHOLOGIST [employer] EQUIPMENT REPAIRER CHANDAN WINSTON M.D. Performed By: #### C MP, MG #### [facility] [address] [place] [address] Neutrophils [#/volume] in Bl ood by Automated countOrdered By: Karly Nielsen on 03-15-2024 Neutrophils (Bld) [#/Vol] 2.2 10*3/uL Normal 1.8-7.7 [facility] Comment on above: Performed By: #### C MP, MG #### [address] No Panel InformationOrdered By: Karly Nielsen on 03-15-2024 Estimated GFR (CKD-EPI) > 60.0 mL/Min [facility] Creatinine Clearance (Chem 90.55 [facility] Nucleated erythrocytes [Pres ence] in Blood by Automated countOrdered By: Karly Nielsen on 03-15-2024 Nucleated RBC Auto Ql (Bld) 0.2 /100{WBC} 0-0.5 [facility] Platelet mean volume [Entiti c volume] in Blood by Automated countOrdered By: Karly Nielsen on 03-15-2024 Platelet mean volume (Bld) [Entitic vol] 6.8 fL Normal 6.6-10.1 [facility] Comment on above: Performed By: #### C MP, MG #### [facility] [address] [place] [address] Platelets [#/volume] in Bloo d by Automated countOrdered By: Karly Nielsen on 03-15-2024 Platelets (Bld) [#/Vol] 182 10*3/uL Normal 150-450 [facility] Comment on above: Performed By: #### C MP, MG #### [place] [address] [place] Potassium [Moles/volume] in Serum or PlasmaOrdered By: Karly Obrien-Radha on 03-15-2024 Potassium [Moles/Vol] 3.0 mmol/L Low 3.5-5.1 [facility] Comment on above: Performed By: #### C MP, MG #### [address] Protein [Mass/volume] in Ser um or PlasmaOrdered By: Karly Obrien-Radha on 03-15-2024 Protein [Mass/Vol] 6.8 g/dL Normal 6.4-8.9 [facility] Comment on above: Performed By: #### C MP, MG #### [address] Serum globulin measurement b y calculation (mass/volume)Ordered By: Karly Obrien- Radha on 03-15-2024 Globulin (S) [Mass/Vol] 2.8 g/dL Normal [facility] Comment on above: Performed By: #### C MP, MG #### [address] Serum or plasma albumin/glob ulin mass ratioOrdered By: Karly Obrien-Radha on 03-15-2024 Albumin/Globulin [Mass ratio] 1.4 {ratio} Normal [facility] Comment on above: Performed By: #### C MP, MG #### [address] Serum or plasma anion gap de terminationOrdered By: Karly Obrien-Radha on 03-15-2024 Anion gap [Moles/Vol] 12.9 mmol/L Normal 6.0-15.0 [facility] Comment on above: Performed By: #### C MP, MG #### [address] Sodium [Moles/volume] in Ser um or PlasmaOrdered By: Karly Obrien-Radha on 03-15-2024 Sodium [Moles/Vol] 136 mmol/L Normal 136-145 [facility] Comment on above: Performed By: #### C MP, MG #### [facility] [address] Urea nitrogen [Mass/volume] in Serum or PlasmaOrdered By: Karly Nielsen on 03-15-2024 Urea nitrogen [Mass/Vol] 17 mg/dL Normal 7-25 [facility] Comment on above: Performed By: #### C MP, MG #### [facility] [address] Basophils Auto (Bld) [#/Vol] on 03-09-2024 Basophils (Bld) [#/Vol] 0.0 10 3/uL 0.0-0.1 [facility] Basophils/100 WBC Auto (Bld) on 03-09-2024 Basophils/100 WBC (Bld) 0.4 % 0.2-2.0 F [facility] Eosinophils/100 WBC Auto (Bl d)on 03-09-2024 Eosinophils/100 WBC (Bld) 0.4 % Low 0.9-7.0 [facility] Erythrocyte distribution wid th Auto (RBC) [Ratio]on 03-09-2024 Erythrocyte distribution width (RBC) [Ratio] 11.7 % 11.0-15.0 [facility] Estimated glomerular filtrat ion rate (GFR) non- Americanon 03-09-2024 GFR/1.73 sq M.predicted among non-blacks MDRD (S/P/Bld) [Vol rate/Area] 45 mL/min/{1.73_m2} Low >=60 [facility] Globulin Calc (S) [Mass/Vol] on 03-09-2024 Globulin (S) [Mass/Vol] 3.5 g/dL F [facility] Hematocrit Auto (Bld) [Volum e fraction]on 03-09-2024 Hematocrit (Bld) [Volume fraction] 35.1 % Low 42.0-54.0 [facility] Hemoglobin [Mass/volume] in Bloodon 03-09-2024 Hemoglobin (Bld) [Mass/Vol] 12.9 g/dL Low 14.0-18.0 [facility] Laboratory - Chemistry and C hemistry - challengeon 03-09-2024 Albumin [Mass/Vol] 3.9 g/dL 3.4-5.0 [facility] ALP [Catalytic activity/Vol] 74 U/L 46-116 [facility] ALT [Catalytic activity/Vol] 111 U/L High 16-63 [facility] AST [Catalytic activity/Vol] 47 U/L High 15-37 [facility] Bilirubin [Mass/Vol] 0.8 mg/dL 0.2-1.0 [facility] Calcium [Mass/Vol] 9.2 mg/dL 8.5-10.1 [facility] Chloride [Moles/Vol] 93 mmol/L Low 98-107 [facility] CO2 [Moles/Vol] 24.6 mmol/L 21.0-32.0 [facility] Creatinine [Mass/Vol] 1.58 mg/dL High 0.70-1.30 [facility] GFR/1.73 sq M.predicted MDRD (S/P/Bld) [Vol rate/Area] 55 mL/min/{1.73_m2} Low >=60 [facility] Glucose [Mass/Vol] 120 mg/dL High 74-106 [facility] Magnesium [Mass/Vol] 1.2 mg/dL Low 1.8-2.4 [facility] Potassium [Moles/Vol] 2.6 mmol/L Low 3.5-5.1 [facility] Comment on above: RESULTS CALLED TO JEROMY VELÁZQUEZ NP Protein [Mass/Vol] 7.4 g/dL 6.4-8.2 [facility] Sodium [Moles/Vol] 136 mmol/L 136-145 [facility] Urea nitrogen [Mass/Vol] 28.0 mg/dL High 7.0-18.0 [facility] Urea nitrogen/Creatinine [Mass ratio] 17.7 mg/mg [facility] Laboratory - Hematology and Cell countson 03-09-2024 Immature granulocytes/100 WBC (Bld) 0.4 % 0.0-0.5 [facility] Leukocytes [#/volume] correc evelyn for nucleated erythrocytes in Blood by Automated counon 03-09-2024 WBC corrected for nucl RBC Auto (Bld) [#/Vol] 2.7 10 3/uL Low 4.0-11.0 [facility] Lymphocytes Auto (Bld) [#/Vo l]on 03-09-2024 Lymphocytes (Bld) [#/Vol] 0.3 10 3/uL Low 1.2-3.8 [facility] Lymphocytes/100 WBC Auto (Bl d)on 03-09-2024 Lymphocytes/100 WBC (Bld) 12.4 % Low 20.5-60.0 [facility] MCH Auto (RBC) [Entitic mass ]on 03-09-2024 MCH (RBC) [Entitic mass] 33.2 pg 25.9-34.0 [facility] MCHC Auto (RBC) [Mass/Vol]on 03-09-2024 MCHC (RBC) [Mass/Vol] 36.8 g/dL High 29.9-35.2 [facility] MCV Auto (RBC) [Entitic vol] on 03-09-2024 MCV (RBC) [Entitic vol] 90.2 fL 80.0-94.0 [facility] Monocytes Auto (Bld) [#/Vol] on 03-09-2024 Monocytes (Bld) [#/Vol] 0.7 10 3/uL 0.3-0.8 [facility] Monocytes/100 WBC Auto (Bld) on 03-09-2024 Monocytes/100 WBC (Bld) 25.1 % High 1.7-12.0 [facility] Neutrophils Auto (Bld) [#/Vo l]on 03-09-2024 Neutrophils (Bld) [#/Vol] 1.6 10 3/uL 1.4-6.5 [facility] Neutrophils/100 WBC Auto (Bl d)on 03-09-2024 Neutrophils/100 WBC (Bld) 61.3 % 43.0-75.0 [facility] No Panel Informationon 03-09 Eosinophils # (Auto) 0.0 10 3/uL 0.0-0.7 [facility] Immature Granulocyte # (Auto) 0.01 10 3/uL 0.00-0.03 [facility] Platelet mean volume Auto (B ld) [Entitic vol]on 03-09-2024 Platelet mean volume (Bld) [Entitic vol] 9.1 fL Low 9.5-13.5 [facility] Platelets Auto (Bld) [#/Vol] on 03-09-2024 Platelets (Bld) [#/Vol] 188 10 3/uL 150-450 [facility] RBC Auto (Bld) [#/Vol]on RBC (Bld) [#/Vol] 3.89 10 6/uL Low 4.70-6.10 [facility] Serum or plasma albumin/glob ulin mass ratioon 03-09-2024 Albumin/Globulin [Mass ratio] 1.1 {ratio} [facility] Serum or plasma anion gap de terminationon 03-09-2024 Anion gap [Moles/Vol] 21.0 mmol/L [facility] Alanine aminotransferase [En zymatic activity/volume] in Serum or PlasmaOrdered By: Karly Nielsen on 03-01-2024 ALT [Catalytic activity/Vol] 60 U/L High 7-52 [facility] Comment on above: Performed By: #### C BC, CMP, MG #### [facility] [address] [place] [address] [place] Albumin [Mass/volume] in Ser um or Plasma by Bromocresol green (BCG) dye binding methoOrdered By: acosta Nielsen on 03-01-2024 Albumin BCG dye [Mass/Vol] 4.4 g/dL 3.5-5.7 [facility] Alkaline phosphatase [Enzyma tic activity/volume] in Serum or PlasmaOrdered By: Karly Nielsen on 03-01-2024 ALP [Catalytic activity/Vol] 63 U/L Normal 34-104 [facility] Comment on above: Performed By: #### C BC, CMP, MG #### [facility] [address] [place] [address] [place] Aspartate aminotransferase [ Enzymatic activity/volume] in Serum or PlasmaOrdered By: Karly Nielsen on 03-01-2024 AST [Catalytic activity/Vol] 32 U/L Normal 13-39 [facility] Comment on above: Performed By: #### C BC, CMP, MG #### [address] Automated basophil %Ordered By: Karly Nielsen on 03-01-2024 Basophils/100 WBC (Bld) 0.3 % Normal . [facility] Comment on above: Performed By: #### C BC, CMP, MG #### [address] Automated basophil countOrde red By: Karly Obrien-Radha on 03-01-2024 Basophils (Bld) [#/Vol] 0.0 10*3/uL Normal 0.0-0.2 [facility] Comment on above: Result Comment: PERF ORMED BY: [place] [address] PATHOLOGIST [employer] REPA[employer]ER CHANDAN WINSTON M.D. Performed By: #### C BC, CMP, MG #### [address] Automated blood monocyte cou ntOrdered By: acosta Obrien-Radha on 03-01-2024 Monocytes (Bld) [#/Vol] 0.7 10*3/uL Normal 0.0-0.8 [facility] Comment on above: Performed By: #### C BC, CMP, MG #### [address] Automated eosinophil %Ordere d By: Karly Obrien-Radha on 03-01-2024 Eosinophils/100 WBC (Bld) 0.8 % Normal . [facility] Comment on above: Performed By: #### C BC, CMP, MG #### [address] Automated eosinophil countOr dered By: Karly Obrien-Radha on 03-01-2024 Eosinophils (Bld) [#/Vol] 0.0 10*3/uL Normal 0.0-0.45 [facility] Comment on above: Performed By: #### C BC, CMP, MG #### [facility] [address] Automated monocyte %Ordered By: Supad Al-Marraandria on 03-01-2024 Monocytes/100 WBC (Bld) 12.7 % Normal . [facility] Comment on above: Performed By: #### C BC, CMP, MG #### [facility] [address] Automated neutrophil %Ordere d By: d Al-Marraandria on 03-01-2024 Neutrophils/100 WBC (Bld) 77.9 % Normal . [facility] Comment on above: Performed By: #### C BC, CMP, MG #### [facility] [address] Bilirubin.total [Mass/volume ] in Serum or PlasmaOrdered By: acosta Al-Marraandria on 03-01-2024 Bilirubin [Mass/Vol] 0.7 mg/dL Normal 0.3-1.0 [facility] Comment on above: Performed By: #### C BC, CMP, MG #### [address] Calcium [Mass/volume] in Ser um or PlasmaOrdered By: acosta Al-Marraandria on 03-01-2024 Calcium [Mass/Vol] 9.8 mg/dL Normal 8.6-10.3 [facility] Comment on above: Performed By: #### C BC, CMP, MG #### [facility] [address] [place] [address] [place] Carbon dioxide, total [Moles /volume] in Serum or PlasmaOrdered By: d Al- Marraandria on 03-01-2024 CO2 [Moles/Vol] 29.0 mmol/L Normal 21.0-31.0 [facility] Comment on above: Performed By: #### C BC, CMP, MG #### [place] [address] [place] Chloride [Moles/volume] in S ray or PlasmaOrdered By: d Al-Marraandria on 03-01-2024 Chloride [Moles/Vol] 96 mmol/L Low 98-107 [facility] Comment on above: Performed By: #### C BC, CMP, MG #### [address] Complete Blood Count Auto Di ffon 03-01-2024 Mean Corpuscular HGB Conc 36.2 g/dL High 32.5-35.6 [facility] Comment on above: Performed By: #### C BC, CMP, MG #### [address] NRBC% 0.1 /100{WBC} Normal 0-0.5 [facility] Comment on above: Performed By: #### C BC, CMP, MG #### [address] Comprehensive Metabolic Pane robinson 03-01-2024 Albumin [Mass/Vol] 4.4 g/dL Normal 3.5-5.7 [facility] Comment on above: Performed By: #### C BC, CMP, MG #### [address] Creatinine Clr Calc Pharmacy 70.78 Normal [facility] Comment on above: Performed By: #### C BC, CMP, MG #### [address] GFR/1.73 sq M.predicted MDRD (S/P/Bld) [Vol rate/Area] 59.129 mL/min/{1.73_m2} Normal [facility] Comment on above: Performed By: #### C BC, CMP, MG #### [address] Creatinine [Mass/volume] in Serum or PlasmaOrdered By: Karly Nielsen on 03-01-2024 Creatinine [Mass/Vol] 1.39 mg/dL High 0.70-1.30 [facility] Comment on above: Performed By: #### C BC, CMP, MG #### [address] Erythrocyte distribution wid th [Ratio] by Automated countOrdered By: Karly Garcia on 03-01-2024 Erythrocyte distribution width (RBC) [Ratio] 11.8 % Low 12.0-14.8 [facility] Comment on above: Performed By: #### C BC CMP, MG #### [facility] [address] Erythrocytes [#/volume] in B lood by Automated countOrdered By: Karly Nielsen on 03-01-2024 RBC (Bld) [#/Vol] 3.82 10*6/uL Low 3.90-5.60 [facility] Comment on above: Performed By: #### C UBALDO ANNE, MG #### [facility] [address] Glucose [Mass/volume] in Ser um or PlasmaOrdered By: Karly Nielsen on 03-01-2024 Glucose [Mass/Vol] 109 mg/dL High 70-100 [facility] Comment on above: ADA recommended refe rence rangeRandom Glucose Reference Range is dependent on time and content of last meal. Glucose of more than 200 mg/dL in a nonstressed, ambulatory subject supports the diagnosis of Diabetes Mellitus. Result Comment: [place] om Glucose Reference Range is dependent on time and content of last meal. Glucose of more than 200 mg/dL in a nonstressed, ambulatory subject supports the diagnosis of Diabetes Mellitus. ADA recommended reference range Performed By: #### C UBALDO ANNE, MG #### [facility] [address] [place] [address] [place] Hematocrit [Volume Fraction] of Blood by Automated countOrdered By: Karly Garcia on 03-01-2024 Hematocrit (Bld) [Volume fraction] 35.4 % Low 38.8-50.0 [facility] Comment on above: Performed By: #### C OMID CMP, MG #### [facility] [address] [place] [address] [place] Hemoglobin [Mass/volume] in BloodOrdered By: Karly Nielsen on 03-01-2024 Hemoglobin (Bld) [Mass/Vol] 12.8 g/dL Low 13.0-17.0 [facility] Comment on above: Performed By: #### C BC, CMP, MG #### [address] Leukocytes [#/volume] correc evelyn for nucleated erythrocytes in Blood by Automated counOrdered By: acosta Obrien-Radha on 03-01-2024 WBC corrected for nucl RBC Auto (Bld) [#/Vol] 5.3 10*3/uL 4.1-10.5 [facility] Leukocytes [#/volume] in Blo od by Automated countOrdered By: acosta Obrien-Radha on 03-01-2024 WBC (Bld) [#/Vol] 5.3 10*3/uL Normal 4.1-10.5 [facility] Comment on above: Performed By: #### C BC, CMP, MG #### [address] Lymphocytes [#/volume] in Bl ood by Automated countOrdered By: acosta Nielsen on 03-01-2024 Lymphocytes (Bld) [#/Vol] 0.4 10*3/uL Low 1.00-4.8 [facility] Comment on above: Performed By: #### C BC, CMP, MG #### [address] Lymphocytes/100 leukocytes i n Blood by Automated countOrdered By: acosta Nielsen on 03-01-2024 Lymphocytes/100 WBC (Bld) 8.3 % Normal . [facility] Comment on above: Performed By: #### C BC, CMP, MG #### [address] MCH [Entitic mass] by Automa evelyn countOrdered By: acosta Obrien-Radha on 03-01-2024 MCH (RBC) [Entitic mass] 33.6 pg Normal 27.5-35.2 [facility] Comment on above: Performed By: #### C BC, CMP, MG #### [address] MCHC Auto (RBC) [Mass/Vol]Or dered By: Karly Nielsen on 03-01-2024 MCHC (RBC) [Mass/Vol] 36.2 g/dL High 32.5-35.6 [facility] MCV [Entitic volume] by Auto mated countOrdered By: Karly Nielsen on 03-01-2024 MCV (RBC) [Entitic vol] 92.8 fL Normal 83.5-101 [facility] Comment on above: Performed By: #### C BC, CMP, MG #### [facility] [address] [place] [address] Magnesium [Mass/volume] in S ray or PlasmaOrdered By: Karly Nielsen on 03-01-2024 Magnesium [Mass/Vol] 1.7 mg/dL Low 1.9-2.7 [facility] Comment on above: Result Comment: PERF ORMED BY: [place] [address] PATHOLOGIST [employer] REPAIRER CHANDAN WINSTON M.D. Performed By: #### C BC, CMP, MG #### [facility] [address] [place] [address] Neutrophils [#/volume] in Bl ood by Automated countOrdered By: Karly Nielsen on 03-01-2024 Neutrophils (Bld) [#/Vol] 4.1 10*3/uL Normal 1.8-7.7 [facility] Comment on above: Performed By: #### C BC, CMP, MG #### [facility] [address] [place] [address] No Panel InformationOrdered By: Karly Nielsen on 03-01-2024 Estimated GFR (CKD-EPI) 59.129 mL/Min [facility] Creatinine Clearance (Chem 70.78 [facility] Nucleated erythrocytes [Pres ence] in Blood by Automated countOrdered By: Karly Nielsen on 03-01-2024 Nucleated RBC Auto Ql (Bld) 0.1 /100{WBC} 0-0.5 [facility] Platelet mean volume [Entiti c volume] in Blood by Automated countOrdered By: Karly Nielsen on 03-01-2024 Platelet mean volume (Bld) [Entitic vol] 6.7 fL Normal 6.6-10.1 [facility] Comment on above: Performed By: #### C BC, CMP, MG #### [address] Platelets [#/volume] in Bloo d by Automated countOrdered By: acosta Nielsen on 03-01-2024 Platelets (Bld) [#/Vol] 187 10*3/uL Normal 150-450 [facility] Comment on above: Performed By: #### C BC, CMP, MG #### [address] Potassium [Moles/volume] in Serum or PlasmaOrdered By: acosta Nielsen on 03-01-2024 Potassium [Moles/Vol] 3.5 mmol/L Normal 3.5-5.1 [facility] Comment on above: Performed By: #### C BC, CMP, MG #### [address] Protein [Mass/volume] in Ser um or PlasmaOrdered By: acosta Nielsen on 03-01-2024 Protein [Mass/Vol] 7.7 g/dL Normal 6.4-8.9 [facility] Comment on above: Performed By: #### C BC, CMP, MG #### [address] Serum globulin measurement b y calculation (mass/volume)Ordered By: acosta Garcia on 03-01-2024 Globulin (S) [Mass/Vol] 3.3 g/dL Normal [facility] Comment on above: Performed By: #### C BC, CMP, MG #### [address] Serum or plasma albumin/glob ulin mass ratioOrdered By: acosta Nielsen on 03-01-2024 Albumin/Globulin [Mass ratio] 1.3 {ratio} Normal [facility] Comment on above: Performed By: #### C BC, CMP, MG #### [address] Serum or plasma anion gap de terminationOrdered By: Karly Nielsen on 03-01-2024 Anion gap [Moles/Vol] 13.5 mmol/L Normal 6.0-15.0 [facility] Comment on above: Performed By: #### C BC, CMP, MG #### [address] Sodium [Moles/volume] in Ser um or PlasmaOrdered By: Karly Nielsen on 03-01-2024 Sodium [Moles/Vol] 135 mmol/L Low 136-145 [facility] Comment on above: Performed By: #### C BC, CMP, MG #### [facility] [address] [place] [address] [place] Urea nitrogen [Mass/volume] in Serum or PlasmaOrdered By: Karly Nielsen on 03-01-2024 Urea nitrogen [Mass/Vol] 31 mg/dL High 7-25 [facility] Comment on above: Performed By: #### C BC, CMP, MG #### [place] [address] [place] Alanine aminotransferase [En zymatic activity/volume] in Serum or PlasmaOrdered By: Karly Nielsen on 02-23-2024 ALT [Catalytic activity/Vol] 35 U/L Normal 7-52 [facility] Comment on above: Performed By: #### C MP, MG #### [place] [address] [place] Albumin [Mass/volume] in Ser um or Plasma by Bromocresol green (BCG) dye binding methoOrdered By: Karly Nielsen on 02-23-2024 Albumin BCG dye [Mass/Vol] 4.2 g/dL 3.5-5.7 [facility] Alkaline phosphatase [Enzyma tic activity/volume] in Serum or PlasmaOrdered By: Karly Nielsen on 02-23-2024 ALP [Catalytic activity/Vol] 49 U/L Normal 34-104 [facility] Comment on above: Performed By: #### C MP, MG #### [address] Aspartate aminotransferase [ Enzymatic activity/volume] in Serum or PlasmaOrdered By: acosta Obrien-Radha on 02-23-2024 AST [Catalytic activity/Vol] 24 U/L Normal 13-39 [facility] Comment on above: Performed By: #### C MP, MG #### [address] Automated basophil %Ordered By: acosta Obrien-Radha on 02-23-2024 Basophils/100 WBC (Bld) 0.5 % Normal . [facility] Comment on above: Performed By: #### C MP, MG #### [address] Automated basophil countOrde red By: acosta Nielsen on 02-23-2024 Basophils (Bld) [#/Vol] 0.0 10*3/uL Normal 0.0-0.2 [facility] Comment on above: Result Comment: PERF ORMED BY: [place] [address] PATHOLOGIST [employer] E[employer]IP[employer] REPAIRER CHANDAN WINSTON M.D. Performed By: #### C MP, MG #### [address] Automated blood monocyte cou ntOrdered By: acosta Obrien-Tamannamicheal on 02-23-2024 Monocytes (Bld) [#/Vol] 0.6 10*3/uL Normal 0.0-0.8 [facility] Comment on above: Performed By: #### C MP, MG #### [address] Automated eosinophil %Ordere d By: acosta Obrien-Tamannamicheal on 02-23-2024 Eosinophils/100 WBC (Bld) 1.6 % Normal . [facility] Comment on above: Performed By: #### C MP, MG #### [address] Automated eosinophil countOr dered By: Karly UmangRositaTamannamicheal on 02-23-2024 Eosinophils (Bld) [#/Vol] 0.1 10*3/uL Normal 0.0-0.45 [facility] Comment on above: Performed By: #### C MP, MG #### [address] Automated monocyte %Ordered By: acosta Obrien-Tamannamicheal on 02-23-2024 Monocytes/100 WBC (Bld) 11.3 % Normal . [facility] Comment on above: Performed By: #### C MP, MG #### [address] Automated neutrophil %Ordere d By: acosta Obrien-Radha on 02-23-2024 Neutrophils/100 WBC (Bld) 76.3 % Normal . [facility] Comment on above: Performed By: #### C MP, MG #### [address] Bilirubin.total [Mass/volume ] in Serum or PlasmaOrdered By: acosta Obrien-Radha on 02-23-2024 Bilirubin [Mass/Vol] 0.6 mg/dL Normal 0.3-1.0 [facility] Comment on above: Performed By: #### C MP, MG #### [address] Calcium [Mass/volume] in Ser um or PlasmaOrdered By: acosta Obrien-Radha on 02-23-2024 Calcium [Mass/Vol] 9.6 mg/dL Normal 8.6-10.3 [facility] Comment on above: Performed By: #### C MP, MG #### [address] Carbon dioxide, total [Moles /volume] in Serum or PlasmaOrdered By: acosta Obrien- Radha on 02-23-2024 CO2 [Moles/Vol] 29.7 mmol/L Normal 21.0-31.0 [facility] Comment on above: Performed By: #### C MP, MG #### [address] Chloride [Moles/volume] in S ray or PlasmaOrdered By: Karly Nielsen on 02-23-2024 Chloride [Moles/Vol] 99 mmol/L Normal 98-107 [facility] Comment on above: Performed By: #### C MP, MG #### [address] Complete Blood Count Auto Di ffon 02-23-2024 Mean Corpuscular HGB Conc 35.3 g/dL Normal 32.5-35.6 [facility] Comment on above: Performed By: #### C MP, MG #### [address] NRBC% 0.1 /100{WBC} Normal 0-0.5 [facility] Comment on above: Performed By: #### C MP, MG #### [address] Comprehensive Metabolic Pane robinson 02-23-2024 Albumin [Mass/Vol] 4.2 g/dL Normal 3.5-5.7 [facility] Comment on above: Performed By: #### C MP, MG #### [address] Creatinine Clr Calc Pharmacy 94.16 Normal [facility] Comment on above: Performed By: #### C MP, MG #### [place] [address] [place] GFR/1.73 sq M.predicted MDRD (S/P/Bld) [Vol rate/Area] mL/min/{1.73_m2} Normal [facility] Comment on above: Performed By: #### C MP, MG #### [address] Creatinine [Mass/volume] in Serum or PlasmaOrdered By: Karly Nielsen on 02-23-2024 Creatinine [Mass/Vol] 1.05 mg/dL Normal 0.70-1.30 [facility] Comment on above: Performed By: #### C MP, MG #### [address] Erythrocyte distribution wid th [Ratio] by Automated countOrdered By: acosta Garcia on 02-23-2024 Erythrocyte distribution width (RBC) [Ratio] 12.2 % Normal 12.0-14.8 [facility] Comment on above: Performed By: #### C MP, MG #### [address] Erythrocytes [#/volume] in B lood by Automated countOrdered By: Karly Nielsen on 02-23-2024 RBC (Bld) [#/Vol] 4.01 10*6/uL Normal 3.90-5.60 [facility] Comment on above: Performed By: #### C MP, MG #### [address] Glucose [Mass/volume] in Ser um or PlasmaOrdered By: acosta Nielsen on 02-23-2024 Glucose [Mass/Vol] 107 mg/dL High 70-100 [facility] Comment on above: ADA recommended refe rence rangeRandom Glucose Reference Range is dependent on time and content of last meal. Glucose of more than 200 mg/dL in a nonstressed, ambulatory subject supports the diagnosis of Diabetes Mellitus. Result Comment: [place] om Glucose Reference Range is dependent on time and content of last meal. Glucose of more than 200 mg/dL in a nonstressed, ambulatory subject supports the diagnosis of Diabetes Mellitus. ADA recommended reference range Performed By: #### C MP, MG #### [address] Hematocrit [Volume Fraction] of Blood by Automated countOrdered By: Karly Garcia on 02-23-2024 Hematocrit (Bld) [Volume fraction] 37.5 % Low 38.8-50.0 [facility] Comment on above: Performed By: #### C MP, MG #### [address] [place] [address] [place] Hemoglobin [Mass/volume] in BloodOrdered By: acosta Nielsen on 02-23-2024 Hemoglobin (Bld) [Mass/Vol] 13.3 g/dL Normal 13.0-17.0 [facility] Comment on above: Performed By: #### C MP, MG #### [address] Leukocytes [#/volume] correc evelyn for nucleated erythrocytes in Blood by Automated counOrdered By: acosta Nielsen on 02-23-2024 WBC corrected for nucl RBC Auto (Bld) [#/Vol] 5.7 10*3/uL 4.1-10.5 [facility] Leukocytes [#/volume] in Blo od by Automated countOrdered By: acosta Nielsen on 02-23-2024 WBC (Bld) [#/Vol] 5.7 10*3/uL Normal 4.1-10.5 [facility] Comment on above: Performed By: #### C MP, MG #### [place] [address] [place] Lymphocytes [#/volume] in Bl ood by Automated countOrdered By: acosta Nielsen on 02-23-2024 Lymphocytes (Bld) [#/Vol] 0.6 10*3/uL Low 1.00-4.8 [facility] Comment on above: Performed By: #### C MP, MG #### [place] [address] [place] Lymphocytes/100 leukocytes i n Blood by Automated countOrdered By: acosta Obrien-Radha on 02-23-2024 Lymphocytes/100 WBC (Bld) 10.3 % Normal . [facility] Comment on above: Performed By: #### C MP, MG #### [place] [address] [place] MCH [Entitic mass] by Automa evelyn countOrdered By: acosta Nielsen on 02-23-2024 MCH (RBC) [Entitic mass] 33.1 pg Normal 27.5-35.2 [facility] Comment on above: Performed By: #### C MP, MG #### [address] MCHC Auto (RBC) [Mass/Vol]Or dered By: Karly Nielsen on 02-23-2024 MCHC (RBC) [Mass/Vol] 35.3 g/dL 32.5-35.6 [facility] MCV [Entitic volume] by Auto mated countOrdered By: Karly Nielsen on 02-23-2024 MCV (RBC) [Entitic vol] 93.6 fL Normal 83.5-101 [facility] Comment on above: Performed By: #### C MP, MG #### [address] Magnesium [Mass/volume] in S ray or PlasmaOrdered By: Karly Nielsen on 02-23-2024 Magnesium [Mass/Vol] 1.5 mg/dL Low 1.9-2.7 [facility] Comment on above: Result Comment: PERF ORMED BY: [place] [address] PATHOLOGIST [employer] E[employer]MENT REPAIRER CHANDAN WINSTON M.D. Performed By: #### C MP, MG #### [address] Neutrophils [#/volume] in Bl ood by Automated countOrdered By: Karly Nielsen on 02-23-2024 Neutrophils (Bld) [#/Vol] 4.4 10*3/uL Normal 1.8-7.7 [facility] Comment on above: Performed By: #### C MP, MG #### [facility] [address] [place] [address] No Panel InformationOrdered By: Karly Nielsen on 02-23-2024 Estimated GFR (CKD-EPI) > 60.0 mL/Min [facility] Creatinine Clearance (Chem 94.16 [facility] Nucleated erythrocytes [Pres ence] in Blood by Automated countOrdered By: Kalry Nielsen on 02-23-2024 Nucleated RBC Auto Ql (Bld) 0.1 /100{WBC} 0-0.5 [facility] Platelet mean volume [Entiti c volume] in Blood by Automated countOrdered By: Karly Nielsen on 02-23-2024 Platelet mean volume (Bld) [Entitic vol] 7.1 fL Normal 6.6-10.1 [facility] Comment on above: Performed By: #### C MP, MG #### [address] Platelets [#/volume] in Bloo d by Automated countOrdered By: Karly Nielsen on 02-23-2024 Platelets (Bld) [#/Vol] 148 10*3/uL Low 150-450 [facility] Comment on above: Performed By: #### C MP, MG #### [address] Potassium [Moles/volume] in Serum or PlasmaOrdered By: Karly Nielsen on 02-23-2024 Potassium [Moles/Vol] 4.0 mmol/L Normal 3.5-5.1 [facility] Comment on above: Performed By: #### C MP, MG #### [address] Protein [Mass/volume] in Ser um or PlasmaOrdered By: Karly Nielsen on 02-23-2024 Protein [Mass/Vol] 7.2 g/dL Normal 6.4-8.9 [facility] Comment on above: Performed By: #### C MP, MG #### [address] Serum globulin measurement b y calculation (mass/volume)Ordered By: Karly Garcia on 02-23-2024 Globulin (S) [Mass/Vol] 3.0 g/dL Normal [facility] Comment on above: Performed By: #### C MP, MG #### [address] Serum or plasma albumin/glob ulin mass ratioOrdered By: acosta Nielsen on 02-23-2024 Albumin/Globulin [Mass ratio] 1.4 {ratio} Normal [facility] Comment on above: Performed By: #### C MP, MG #### [address] Serum or plasma anion gap de terminationOrdered By: acosta Nielsen on 02-23-2024 Anion gap [Moles/Vol] 11.3 mmol/L Normal 6.0-15.0 [facility] Comment on above: Performed By: #### C MP, MG #### [address] Sodium [Moles/volume] in Ser um or PlasmaOrdered By: acosta Nielsen on 02-23-2024 Sodium [Moles/Vol] 136 mmol/L Normal 136-145 [facility] Comment on above: Performed By: #### C MP, MG #### [address] Urea nitrogen [Mass/volume] in Serum or PlasmaOrdered By: acosta Nielsen on 02-23-2024 Urea nitrogen [Mass/Vol] 17 mg/dL Normal 7-25 [facility] Comment on above: Performed By: #### C MP, MG #### [address] Complete Blood Count Auto Di ffon 02-17-2024 Basophils (Bld) [#/Vol] 0.0 10*3/uL Normal 0.0-0.2 [facility] Comment on above: Result Comment: PERF ORMED BY: [place] [address] PATHOLOGIST [employer] EQUIPMENT REPAIRER CHANDAN WINSTON M.D. Performed By: #### C MP, MG #### [address] Basophils/100 WBC (Bld) 0.8 % Normal . [facility] Comment on above: Performed By: #### C MP, MG #### [address] Eosinophils (Bld) [#/Vol] 0.1 10*3/uL Normal 0.0-0.45 [facility] Comment on above: Performed By: #### C MP, MG #### [address] Eosinophils/100 WBC (Bld) 2.2 % Normal . [facility] Comment on above: Performed By: #### C MP, MG #### [address] Erythrocyte distribution width (RBC) [Ratio] 12.0 % Normal 12.0-14.8 [facility] Comment on above: Performed By: #### C MP, MG #### [address] Hematocrit (Bld) [Volume fraction] 39.3 % Normal 38.8-50.0 [facility] Comment on above: Performed By: #### C MP, MG #### [address] Hemoglobin (Bld) [Mass/Vol] 13.9 g/dL Normal 13.0-17.0 [facility] Comment on above: Performed By: #### C MP, MG #### [address] Lymphocytes (Bld) [#/Vol] 0.7 10*3/uL Low 1.00-4.8 [facility] Comment on above: Performed By: #### C MP, MG #### [address] Lymphocytes/100 WBC (Bld) 11.0 % Normal . [facility] Comment on above: Performed By: #### C MP, MG #### [address] MCH (RBC) [Entitic mass] 33.4 pg Normal 27.5-35.2 [facility] Comment on above: Performed By: #### C MP, MG #### [address] MCV (RBC) [Entitic vol] 94.3 fL Normal 83.5-101 [facility] Comment on above: Performed By: #### C MP, MG #### [address] Mean Corpuscular HGB Conc 35.4 g/dL Normal 32.5-35.6 [facility] Comment on above: Performed By: #### C MP, MG #### [address] Monocytes (Bld) [#/Vol] 0.7 10*3/uL Normal 0.0-0.8 [facility] Comment on above: Performed By: #### C MP, MG #### [address] Monocytes/100 WBC (Bld) 11.5 % Normal . [facility] Comment on above: Performed By: #### C MP, MG #### [address] Neutrophils (Bld) [#/Vol] 4.8 10*3/uL Normal 1.8-7.7 [facility] Comment on above: Performed By: #### C MP, MG #### [address] Neutrophils/100 WBC (Bld) 74.5 % Normal . [facility] Comment on above: Performed By: #### C MP, MG #### [address] NRBC% 0.1 /100{WBC} Normal 0-0.5 [facility] Comment on above: Performed By: #### C MP, MG #### [address] Platelet mean volume (Bld) [Entitic vol] 7.1 fL Normal 6.6-10.1 [facility] Comment on above: Performed By: #### C MP, MG #### [address] Platelets (Bld) [#/Vol] 209 10*3/uL Normal 150-450 [facility] Comment on above: Performed By: #### C MP, MG #### [address] RBC (Bld) [#/Vol] 4.17 10*6/uL Normal 3.90-5.60 [facility] Comment on above: Performed By: #### C MP, MG #### [address] WBC (Bld) [#/Vol] 6.4 10*3/uL Normal 4.1-10.5 [facility] Comment on above: Performed By: #### C MP, MG #### [address] Comprehensive Metabolic Pane robinson 02-17-2024 Albumin [Mass/Vol] 4.2 g/dL Normal 3.5-5.7 [facility] Comment on above: Performed By: #### C MP, MG #### [address] Albumin/Globulin [Mass ratio] 1.4 {ratio} Normal [facility] Comment on above: Performed By: #### C MP, MG #### [address] ALP [Catalytic activity/Vol] 54 U/L Normal 34-104 [facility] Comment on above: Performed By: #### C MP, MG #### [address] ALT [Catalytic activity/Vol] 30 U/L Normal 7-52 [facility] Comment on above: Performed By: #### C MP, MG #### [address] Anion gap [Moles/Vol] 8.5 mmol/L Normal 6.0-15.0 [facility] Comment on above: Performed By: #### C MP, MG #### [address] AST [Catalytic activity/Vol] 21 U/L Normal 13-39 [facility] Comment on above: Performed By: #### C MP, MG #### [address] Bilirubin [Mass/Vol] 0.6 mg/dL Normal 0.3-1.0 [facility] Comment on above: Performed By: #### C MP, MG #### [address] Calcium [Mass/Vol] 9.6 mg/dL Normal 8.6-10.3 [facility] Comment on above: Performed By: #### C MP, MG #### [address] Chloride [Moles/Vol] 97 mmol/L Low 98-107 [facility] Comment on above: Performed By: #### C MP, MG #### [address] CO2 [Moles/Vol] 30.2 mmol/L Normal 21.0-31.0 [facility] Comment on above: Performed By: #### C MP, MG #### [address] Creatinine [Mass/Vol] 1.17 mg/dL Normal 0.70-1.30 [facility] Comment on above: Performed By: #### C MP, MG #### [address] Creatinine Clr Calc Pharmacy 84.45 Normal [facility] Comment on above: Performed By: #### C MP, MG #### [address] GFR/1.73 sq M.predicted MDRD (S/P/Bld) [Vol rate/Area] mL/min/{1.73_m2} Normal [facility] Comment on above: Performed By: #### C MP, MG #### [address] Globulin (S) [Mass/Vol] 3.1 g/dL Normal [facility] Comment on above: Performed By: #### C MP, MG #### [address] Glucose [Mass/Vol] 119 mg/dL High 70-100 [facility] Comment on above: Result Comment: [place] Glucose Reference Range is dependent on time and content of last meal. Glucose of more than 200 mg/dL in a nonstressed, ambulatory subject supports the diagnosis of Diabetes Mellitus. ADA recommended reference range Performed By: #### C MP, MG #### [address] Potassium [Moles/Vol] 3.7 mmol/L Normal 3.5-5.1 [facility] Comment on above: Performed By: #### C MP, MG #### [address] Protein [Mass/Vol] 7.3 g/dL Normal 6.4-8.9 [facility] Comment on above: Performed By: #### C MP, MG #### [address] Sodium [Moles/Vol] 132 mmol/L Low 136-145 [facility] Comment on above: Performed By: #### C MP, MG #### [address] Urea nitrogen [Mass/Vol] 19 mg/dL Normal 7-25 [facility] Comment on above: Performed By: #### C MP, MG #### [address] Magnesiumon 02-17-2024 Magnesium [Mass/Vol] 1.7 mg/dL Low 1.9-2.7 [facility] Comment on above: Result Comment: PERF ORMED BY: [place] [address] PATHOLOGIST [employer] EQUIPMENT REPAIRER CHANDAN WINSTON M.D. Performed By: #### C MP, MG #### [address] [place] [address] [place] Alanine aminotransferase [En zymatic activity/volume] in Serum or PlasmaOrdered By: Karly Nielsen on 02-09-2024 ALT [Catalytic activity/Vol] 31 U/L Normal 7-52 [facility] Comment on above: Performed By: #### C MP, MG #### [place] [address] [place] Albumin [Mass/volume] in Ser um or Plasma by Bromocresol green (BCG) dye binding methoOrdered By: Karly Nielsen on 02-09-2024 Albumin BCG dye [Mass/Vol] 4.3 g/dL 3.5-5.7 [facility] Alkaline phosphatase [Enzyma tic activity/volume] in Serum or PlasmaOrdered By: Karly Nielsen on 02-09-2024 ALP [Catalytic activity/Vol] 55 U/L Normal 34-104 [facility] Comment on above: Performed By: #### C MP, MG #### [address] Aspartate aminotransferase [ Enzymatic activity/volume] in Serum or PlasmaOrdered By: Karly Nielsen on 02-09-2024 AST [Catalytic activity/Vol] 21 U/L Normal 13-39 [facility] Comment on above: Performed By: #### C MP, MG #### [address] Automated basophil %Ordered By: Karly Nielsen on 02-09-2024 Basophils/100 WBC (Bld) 0.6 % Normal . [facility] Comment on above: Performed By: #### C MP, MG #### [address] Automated basophil countOrde red By: Karly Nielsen on 02-09-2024 Basophils (Bld) [#/Vol] 0.1 10*3/uL Normal 0.0-0.2 [facility] Comment on above: Result Comment: PERF ORMED BY: [place] [address] PATHOLOGIST [employer] EQUIPMENT REPAIRER CHANDAN WINSTON M.D. Performed By: #### C MP, MG #### [address] Automated blood monocyte cou ntOrdered By: Mhd Al-Marrawi on 02-09-2024 Monocytes (Bld) [#/Vol] 0.9 10*3/uL High 0.0-0.8 [facility] Comment on above: Performed By: #### C MP, MG #### [address] Automated eosinophil %Ordere d By: d Al-Marrawi on 02-09-2024 Eosinophils/100 WBC (Bld) 2.1 % Normal . [facility] Comment on above: Performed By: #### C MP, MG #### [address] Automated eosinophil countOr dered By: d Al-Marrawi on 02-09-2024 Eosinophils (Bld) [#/Vol] 0.2 10*3/uL Normal 0.0-0.45 [facility] Comment on above: Performed By: #### C MP, MG #### [address] Automated monocyte %Ordered By: d Al-Marrawi on 02-09-2024 Monocytes/100 WBC (Bld) 10.3 % Normal . [facility] Comment on above: Performed By: #### C MP, MG #### [address] Automated neutrophil %Ordere d By: d Al-Marrawi on 02-09-2024 Neutrophils/100 WBC (Bld) 77.6 % Normal . [facility] Comment on above: Performed By: #### C MP, MG #### [address] Bilirubin.total [Mass/volume ] in Serum or PlasmaOrdered By: Mhd Al-Marrawi on 02-09-2024 Bilirubin [Mass/Vol] 0.7 mg/dL Normal 0.3-1.0 [facility] Comment on above: Performed By: #### C MP, MG #### [facility] [address] [place] [address] Calcium [Mass/volume] in Ser um or PlasmaOrdered By: Karly Nielsen on 02-09-2024 Calcium [Mass/Vol] 9.8 mg/dL Normal 8.6-10.3 [facility] Comment on above: Performed By: #### C MP, MG #### [address] Carbon dioxide, total [Moles /volume] in Serum or PlasmaOrdered By: Karly Garcia on 02-09-2024 CO2 [Moles/Vol] 30.5 mmol/L Normal 21.0-31.0 [facility] Comment on above: Performed By: #### C MP, MG #### [place] [address] [place] Chloride [Moles/volume] in S ray or PlasmaOrdered By: acosta Nielsen on 02-09-2024 Chloride [Moles/Vol] 98 mmol/L Normal 98-107 [facility] Comment on above: Performed By: #### C MP, MG #### [address] Complete Blood Count Auto Di ffon 02-09-2024 Mean Corpuscular HGB Conc 35.2 g/dL Normal 32.5-35.6 [facility] Comment on above: Performed By: #### C MP, MG #### [address] NRBC% 0.1 /100{WBC} Normal 0-0.5 [facility] Comment on above: Performed By: #### C MP, MG #### [address] Comprehensive Metabolic Pane robinson 02-09-2024 Albumin [Mass/Vol] 4.3 g/dL Normal 3.5-5.7 [facility] Comment on above: Performed By: #### C MP, MG #### [address] Creatinine Clr Calc Pharmacy 105.09 Normal [facility] Comment on above: Performed By: #### C MP, MG #### [address] GFR/1.73 sq M.predicted MDRD (S/P/Bld) [Vol rate/Area] mL/min/{1.73_m2} Normal [facility] Comment on above: Performed By: #### C MP, MG #### [address] Creatinine [Mass/volume] in Serum or PlasmaOrdered By: Karly Nielsen on 02-09-2024 Creatinine [Mass/Vol] 0.96 mg/dL Normal 0.70-1.30 [facility] Comment on above: Performed By: #### C MP, MG #### [address] Erythrocyte distribution wid th [Ratio] by Automated countOrdered By: Karly Garcia on 02-09-2024 Erythrocyte distribution width (RBC) [Ratio] 11.9 % Low 12.0-14.8 [facility] Comment on above: Performed By: #### C MP, MG #### [address] Erythrocytes [#/volume] in B lood by Automated countOrdered By: Karly Nielsen on 02-09-2024 RBC (Bld) [#/Vol] 4.25 10*6/uL Normal 3.90-5.60 [facility] Comment on above: Performed By: #### C MP, MG #### [address] Glucose [Mass/volume] in Ser um or PlasmaOrdered By: Karly Nielsen on 02-09-2024 Glucose [Mass/Vol] 104 mg/dL High 70-100 [facility] Comment on above: ADA recommended refe rence rangeRandom Glucose Reference Range is dependent on time and content of last meal. Glucose of more than 200 mg/dL in a nonstressed, ambulatory subject supports the diagnosis of Diabetes Mellitus. Result Comment: [place] om Glucose Reference Range is dependent on time and content of last meal. Glucose of more than 200 mg/dL in a nonstressed, ambulatory subject supports the diagnosis of Diabetes Mellitus. ADA recommended reference range Performed By: #### C MP, MG #### [address] Hematocrit [Volume Fraction] of Blood by Automated countOrdered By: Karly Garcia on 02-09-2024 Hematocrit (Bld) [Volume fraction] 40.6 % Normal 38.8-50.0 [facility] Comment on above: Performed By: #### C MP, MG #### [address] Hemoglobin [Mass/volume] in BloodOrdered By: Karly Nielsen on 02-09-2024 Hemoglobin (Bld) [Mass/Vol] 14.3 g/dL Normal 13.0-17.0 [facility] Comment on above: Performed By: #### C MP, MG #### [address] Leukocytes [#/volume] correc evelyn for nucleated erythrocytes in Blood by Automated counOrdered By: Karly Nielsen on 02-09-2024 WBC corrected for nucl RBC Auto (Bld) [#/Vol] 8.9 10*3/uL 4.1-10.5 [facility] Leukocytes [#/volume] in Blo od by Automated countOrdered By: acosta Nielsen on 02-09-2024 WBC (Bld) [#/Vol] 8.9 10*3/uL Normal 4.1-10.5 [facility] Comment on above: Performed By: #### C MP, MG #### [place] [address] [place] Lymphocytes [#/volume] in Bl ood by Automated countOrdered By: Karly Nielsen on 02-09-2024 Lymphocytes (Bld) [#/Vol] 0.8 10*3/uL Low 1.00-4.8 [facility] Comment on above: Performed By: #### C MP, MG #### [address] Lymphocytes/100 leukocytes i n Blood by Automated countOrdered By: Karly Nielsen on 02-09-2024 Lymphocytes/100 WBC (Bld) 9.4 % Normal . [facility] Comment on above: Performed By: #### C MP, MG #### [address] MCH [Entitic mass] by Automa evelyn countOrdered By: Karly Nielsen on 02-09-2024 MCH (RBC) [Entitic mass] 33.6 pg Normal 27.5-35.2 [facility] Comment on above: Performed By: #### C MP, MG #### [address] MCHC Auto (RBC) [Mass/Vol]Or dered By: Karly Nielsen on 02-09-2024 MCHC (RBC) [Mass/Vol] 35.2 g/dL 32.5-35.6 [facility] MCV [Entitic volume] by Auto mated countOrdered By: Karly Nielsen on 02-09-2024 MCV (RBC) [Entitic vol] 95.6 fL Normal 83.5-101 [facility] Comment on above: Performed By: #### C MP, MG #### [address] Magnesium [Mass/volume] in S ray or PlasmaOrdered By: Karly Nielsen on 02-09-2024 Magnesium [Mass/Vol] 1.9 mg/dL Normal 1.9-2.7 [facility] Comment on above: Result Comment: PERF ORMED BY: [place] [address] PATHOLOGIST [employer]EREO EQUIPMENT REPAIRER CHANDAN WINSTON M.D. Performed By: #### C MP, MG #### [address] Neutrophils [#/volume] in Bl ood by Automated countOrdered By: Karly Nielsen on 02-09-2024 Neutrophils (Bld) [#/Vol] 6.9 10*3/uL Normal 1.8-7.7 [facility] Comment on above: Performed By: #### C MP, MG #### [address] No Panel InformationOrdered By: Karly Nielsen on 02-09-2024 Estimated GFR (CKD-EPI) > 60.0 mL/Min [facility] Creatinine Clearance (Chem 105.09 [facility] Nucleated erythrocytes [Pres ence] in Blood by Automated countOrdered By: Karly Nielsen on 02-09-2024 Nucleated RBC Auto Ql (Bld) 0.1 /100{WBC} 0-0.5 [facility] PSA Total (Not a Screen)on 0 02-09-2024 PSA Total (Not a Screen) 0.750 ng/mL Normal 0.000-4.000 [facility] Comment on above: Result Comment: Reji obrien tumor marker results determined by assays using different manufacturers or methods may not be comparable. [facility] python django developer and method: [employer] DXI, CHEMILUMINESCENT IMMUNOASSAY. PERFORMED BY: [place] [address] PATHOLOGIST STEREO EQUIPMENT REPAIRER CHANDAN WINSTON M.D. Performed By: #### C MP, MG #### [address] Platelet mean volume [Entiti c volume] in Blood by Automated countOrdered By: Karly Nielsen on 02-09-2024 Platelet mean volume (Bld) [Entitic vol] 7.5 fL Normal 6.6-10.1 [facility] Comment on above: Performed By: #### C MP, MG #### [address] Platelets [#/volume] in Bloo d by Automated countOrdered By: Karly Nielsen on 02-09-2024 Platelets (Bld) [#/Vol] 246 10*3/uL Normal 150-450 [facility] Comment on above: Performed By: #### C MP, MG #### [facility] [address] Potassium [Moles/volume] in Serum or PlasmaOrdered By: Karly Nielsen on 02-09-2024 Potassium [Moles/Vol] 4.2 mmol/L Normal 3.5-5.1 [facility] Comment on above: Performed By: #### C MP, MG #### [address] Prostate specific Ag [Mass/v olume] in Serum or PlasmaOrdered By: Abner Monique on 02-09-2024 Prostate specific Ag [Mass/Vol] 0.750 ng/mL 0.000-4.000 [facility] Comment on above: Serial tumor marker results determined by assays using different manufacturers or methods may not be comparable.[facility] python django developer and method:[employer] DXI, CHEMILUMINESCENT IMMUNOASSAY. Prostate specific Ag [Mass/Vol] Prostate specific Ag [Mass/volume] in Serum or Plasma 0.000-4.000 [facility] Comment on above: Serial tumor marker results determined by assays using different manufacturers or methods may not be comparable.[facility] python django developer and method:[employer] DXI, CHEMILUMINESCENT IMMUNOASSAY. Protein [Mass/volume] in Ser um or PlasmaOrdered By: Karly Nielsen on 02-09-2024 Protein [Mass/Vol] 7.4 g/dL Normal 6.4-8.9 [facility] Comment on above: Performed By: #### C MP, MG #### [address] Serum globulin measurement b y calculation (mass/volume)Ordered By: Karly Garcia on 02-09-2024 Globulin (S) [Mass/Vol] 3.1 g/dL Normal [facility] Comment on above: Performed By: #### C MP, MG #### [place] [address] [place] Serum or plasma albumin/glob ulin mass ratioOrdered By: Karly Nielsen on 02-09-2024 Albumin/Globulin [Mass ratio] 1.4 {ratio} Normal [facility] Comment on above: Performed By: #### C MP, MG #### [address] Serum or plasma anion gap de terminationOrdered By: acosta Nielsen on 02-09-2024 Anion gap [Moles/Vol] 8.7 mmol/L Normal 6.0-15.0 [facility] Comment on above: Performed By: #### C MP, MG #### [address] Sodium [Moles/volume] in Ser um or PlasmaOrdered By: acosta Nielsen on 02-09-2024 Sodium [Moles/Vol] 133 mmol/L Low 136-145 [facility] Comment on above: Performed By: #### C MP, MG #### [address] Urea nitrogen [Mass/volume] in Serum or PlasmaOrdered By: acosta Nielsen on 02-09-2024 Urea nitrogen [Mass/Vol] 19 mg/dL Normal 02-11 [facility] Comment on above: Performed By: #### C MP, MG #### [place] [address] [place] Alanine aminotransferase [En zymatic activity/volume] in Serum or PlasmaOrdered By: acosta Nielsen on 02-02-2024 ALT [Catalytic activity/Vol] 33 U/L Normal [facility] Comment on above: Performed By: #### C MP, MG #### [place] [address] [place] Albumin [Mass/volume] in Ser um or Plasma by Bromocresol green (BCG) dye binding methoOrdered By: Karly Nielsen on 02-02-2024 Albumin BCG dye [Mass/Vol] 4.4 g/dL 3.5-5.7 [facility] Alkaline phosphatase [Enzyma tic activity/volume] in Serum or PlasmaOrdered By: Supaacosta RiveraTamannamicheal on 02-02-2024 ALP [Catalytic activity/Vol] 56 U/L Normal 34-104 [facility] Comment on above: Performed By: #### C MP, MG #### [address] Aspartate aminotransferase [ Enzymatic activity/volume] in Serum or PlasmaOrdered By: acosta Obrien-Tamannamicheal on 02-02-2024 AST [Catalytic activity/Vol] 23 U/L Normal 13-39 [facility] Comment on above: Performed By: #### C MP, MG #### [address] Automated basophil %Ordered By: Karly Nielsen on 02-02-2024 Basophils/100 WBC (Bld) 0.6 % Normal . [facility] [place] Comment on above: Performed By: #### C MP, MG #### [address] Automated basophil countOrde red By: Karly Nielsen on 02-02-2024 Basophils (Bld) [#/Vol] 0.1 10*3/uL Normal 0.0-0.2 [facility] Comment on above: Result Comment: PERF ORMED BY: [place] [address] PATHOLOGIST [employer] E[employer] REPA[employer]ER CHANDAN WINSTON M.D. Performed By: #### C MP, MG #### [address] Automated blood monocyte cou ntOrdered By: acosta Nielsen on 02-02-2024 Monocytes (Bld) [#/Vol] 1.0 10*3/uL High 0.0-0.8 [facility] Comment on above: Performed By: #### C MP, MG #### [address] Automated eosinophil %Ordere d By: acosta Nielsen on 02-02-2024 Eosinophils/100 WBC (Bld) 2.1 % Normal . [facility] Comment on above: Performed By: #### C MP, MG #### [facility] [address] Automated eosinophil countOr dered By: Karly Nielsen on 02-02-2024 Eosinophils (Bld) [#/Vol] 0.2 10*3/uL Normal 0.0-0.45 [facility] Comment on above: Performed By: #### C MP, MG #### [address] Automated monocyte %Ordered By: Karly Nielsen on 02-02-2024 Monocytes/100 WBC (Bld) 11.4 % Normal . [facility] Comment on above: Performed By: #### C MP, MG #### [address] Automated neutrophil %Ordere d By: Karly Nielsen on 02-02-2024 Neutrophils/100 WBC (Bld) 67.7 % Normal . [facility] Comment on above: Performed By: #### C MP, MG #### [address] Bilirubin.total [Mass/volume ] in Serum or PlasmaOrdered By: Karly Nielsen on 02-02-2024 Bilirubin [Mass/Vol] 1.0 mg/dL Normal 0.3-1.0 [facility] Comment on above: Performed By: #### C MP, MG #### [place] [address] [place] Calcium [Mass/volume] in Ser um or PlasmaOrdered By: Karly Nielsen on 02-02-2024 Calcium [Mass/Vol] 9.6 mg/dL Normal 8.6-10.3 [facility] Comment on above: Performed By: #### C MP, MG #### [place] [address] [place] Carbon dioxide, total [Moles /volume] in Serum or PlasmaOrdered By: Karly Garcia on 02-02-2024 CO2 [Moles/Vol] 29.9 mmol/L Normal 21.0-31.0 [facility] Comment on above: Performed By: #### C MP, MG #### [address] Chloride [Moles/volume] in S ray or PlasmaOrdered By: Karly Nielsen on 02-02-2024 Chloride [Moles/Vol] 100 mmol/L Normal 98-107 [facility] Comment on above: Performed By: #### C MP, MG #### [address] Complete Blood Count Auto Di ffon 02-02-2024 Mean Corpuscular HGB Conc 35.6 g/dL Normal 32.5-35.6 [facility] Comment on above: Performed By: #### C MP, MG #### [address] NRBC% 0.1 /100{WBC} Normal 0-0.5 [facility] Comment on above: Performed By: #### C MP, MG #### [address] Comprehensive Metabolic Pane robinson 02-02-2024 Albumin [Mass/Vol] 4.4 g/dL Normal 3.5-5.7 [facility] Comment on above: Performed By: #### C MP, MG #### [address] Creatinine Clr Calc Pharmacy 106.54 Normal [facility] Comment on above: Performed By: #### C MP, MG #### [place] [address] [place] GFR/1.73 sq M.predicted MDRD (S/P/Bld) [Vol rate/Area] mL/min/{1.73_m2} Normal [facility] Comment on above: Performed By: #### C MP, MG #### [address] Creatinine [Mass/volume] in Serum or PlasmaOrdered By: Karly Nielsen on 02-02-2024 Creatinine [Mass/Vol] 0.96 mg/dL Normal 0.70-1.30 [facility] Comment on above: Performed By: #### C MP, MG #### [facility] [address] Erythrocyte distribution wid th [Ratio] by Automated countOrdered By: acosta Garcia on 02-02-2024 Erythrocyte distribution width (RBC) [Ratio] 12.2 % Normal 12.0-14.8 [facility] Comment on above: Performed By: #### C MP, MG #### [facility] [address] Erythrocytes [#/volume] in B lood by Automated countOrdered By: acosta Nielsen on 02-02-2024 RBC (Bld) [#/Vol] 4.49 10*6/uL Normal 3.90-5.60 [facility] Comment on above: Performed By: #### C MP, MG #### [address] Glucose [Mass/volume] in Ser um or PlasmaOrdered By: Karly Nielsen on 02-02-2024 Glucose [Mass/Vol] 118 mg/dL High 70-100 [facility] Comment on above: ADA recommended refe rence rangeRandom Glucose Reference Range is dependent on time and content of last meal. Glucose of more than 200 mg/dL in a nonstressed, ambulatory subject supports the diagnosis of Diabetes Mellitus. Result Comment: [place] om Glucose Reference Range is dependent on time and content of last meal. Glucose of more than 200 mg/dL in a nonstressed, ambulatory subject supports the diagnosis of Diabetes Mellitus. ADA recommended reference range Performed By: #### C MP, MG #### [facility] [address] Hematocrit [Volume Fraction] of Blood by Automated countOrdered By: Karly Garcia on 02-02-2024 Hematocrit (Bld) [Volume fraction] 42.7 % Normal 38.8-50.0 [facility] Comment on above: Performed By: #### C MP, MG #### [address] Hemoglobin [Mass/volume] in BloodOrdered By: Karly Nielsen on 02-02-2024 Hemoglobin (Bld) [Mass/Vol] 15.2 g/dL Normal 13.0-17.0 [facility] Comment on above: Performed By: #### C MP, MG #### [address] Leukocytes [#/volume] correc evelyn for nucleated erythrocytes in Blood by Automated counOrdered By: acosta Nielsen on 02-02-2024 WBC corrected for nucl RBC Auto (Bld) [#/Vol] 9.1 10*3/uL 4.1-10.5 [facility] Leukocytes [#/volume] in Blo od by Automated countOrdered By: acosta Nielsen on 02-02-2024 WBC (Bld) [#/Vol] 9.1 10*3/uL Normal 4.1-10.5 [facility] Comment on above: Performed By: #### C MP, MG #### [place] [address] [place] Lymphocytes [#/volume] in Bl ood by Automated countOrdered By: acosta Nielsen on 02-02-2024 Lymphocytes (Bld) [#/Vol] 1.7 10*3/uL Normal 1.00-4.8 [facility] Comment on above: Performed By: #### C MP, MG #### [place] [address] [place] Lymphocytes/100 leukocytes i n Blood by Automated countOrdered By: acosta Nielsen on 02-02-2024 Lymphocytes/100 WBC (Bld) 18.2 % Normal . [facility] Comment on above: Performed By: #### C MP, MG #### [place] [address] [place] MCH [Entitic mass] by Automa evelyn countOrdered By: Karly Nielsen on 02-02-2024 MCH (RBC) [Entitic mass] 33.9 pg Normal 27.5-35.2 [facility] Comment on above: Performed By: #### C MP, MG #### [address] MCHC Auto (RBC) [Mass/Vol]Or dered By: Karly Nielsen on 02-02-2024 MCHC (RBC) [Mass/Vol] 35.6 g/dL 32.5-35.6 [facility] MCV [Entitic volume] by Auto mated countOrdered By: Karly Nielsen on 02-02-2024 MCV (RBC) [Entitic vol] 95.1 fL Normal 83.5-101 [facility] [place] Comment on above: Performed By: #### C MP, MG #### [address] Magnesium [Mass/volume] in S ray or PlasmaOrdered By: Karly Nielsen on 02-02-2024 Magnesium [Mass/Vol] 2.0 mg/dL Normal 1.9-2.7 [facility] Comment on above: Result Comment: PERF ORMED BY: [place] [address] PATHOLOGIST [employer] E[employer] REPAIRER CHANDAN WINSTON M.D. Performed By: #### C MP, MG #### [facility] [address] [place] [address] Neutrophils [#/volume] in Bl ood by Automated countOrdered By: Karly Nielsen on 02-02-2024 Neutrophils (Bld) [#/Vol] 6.2 10*3/uL Normal 1.8-7.7 [facility] Comment on above: Performed By: #### C MP, MG #### [address] No Panel InformationOrdered By: Karly Nielsen on 02-02-2024 Estimated GFR (CKD-EPI) > 60.0 mL/Min [facility] Creatinine Clearance (Chem 106.54 [facility] Nucleated erythrocytes [Pres ence] in Blood by Automated countOrdered By: Karly Nielsen on 02-02-2024 Nucleated RBC Auto Ql (Bld) 0.1 /100{WBC} 0-0.5 [facility] Platelet mean volume [Entiti c volume] in Blood by Automated countOrdered By: Karly Nielsen on 02-02-2024 Platelet mean volume (Bld) [Entitic vol] 7.9 fL Normal 6.6-10.1 [facility] Comment on above: Performed By: #### C MP, MG #### [facility] [address] [place] [address] [place] Platelets [#/volume] in Bloo d by Automated countOrdered By: Karly Nielsen on 02-02-2024 Platelets (Bld) [#/Vol] 250 10*3/uL Normal 150-450 [facility] Comment on above: Performed By: #### C MP, MG #### [facility] [address] [place] [address] [place] Potassium [Moles/volume] in Serum or PlasmaOrdered By: Karly Nielsen on 02-02-2024 Potassium [Moles/Vol] 3.9 mmol/L Normal 3.5-5.1 [facility] Comment on above: Performed By: #### C MP, MG #### [facility] [address] [place] [address] [place] Protein [Mass/volume] in Ser um or PlasmaOrdered By: Karly Nielsen on 02-02-2024 Protein [Mass/Vol] 7.6 g/dL Normal 6.4-8.9 [facility] Comment on above: Performed By: #### C MP, MG #### [place] [address] [place] Serum globulin measurement b y calculation (mass/volume)Ordered By: Karly Garcia on 02-02-2024 Globulin (S) [Mass/Vol] 3.2 g/dL Normal [facility] Comment on above: Performed By: #### C MP, MG #### [address] Serum or plasma albumin/glob ulin mass ratioOrdered By: Karly Nielsen on 02-02-2024 Albumin/Globulin [Mass ratio] 1.4 {ratio} [facility] Comment on above: Performed By: #### C MP, MG #### [address] Serum or plasma anion gap de terminationOrdered By: Karly Nielsen on 02-02-2024 Anion gap [Moles/Vol] 9.0 mmol/L Normal 6.0-15.0 [facility] Comment on above: Performed By: #### C MP, MG #### [address] Sodium [Moles/volume] in Ser um or PlasmaOrdered By: Karly Nielsen on 02-02-2024 Sodium [Moles/Vol] 135 mmol/L Low 136-145 [facility] Comment on above: Performed By: #### C MP, MG #### [address] Urea nitrogen [Mass/volume] in Serum or PlasmaOrdered By: Karly Nielsen on 02-02-2024 Urea nitrogen [Mass/Vol] 16 mg/dL Normal 7-25 [facility] Comment on above: Performed By: #### C MP, MG #### [place] [address] [place] Alanine aminotransferase [En zymatic activity/volume] in Serum or PlasmaOrdered By: Karly Nielsen on 01-20-2024 ALT [Catalytic activity/Vol] 22 U/L Normal - [facility] Comment on above: Performed By: #### C MP, MG #### [place] [address] [place] Albumin [Mass/volume] in Ser um or Plasma by Bromocresol green (BCG) dye binding methoOrdered By: Karly Nielsen on 01-20-2024 Albumin BCG dye [Mass/Vol] 3.9 g/dL 3.5-5.7 [facility] Alkaline phosphatase [Enzyma tic activity/volume] in Serum or PlasmaOrdered By: Karly Guillenandria on 01-20-2024 ALP [Catalytic activity/Vol] 54 U/L Normal 34-104 [facility] Comment on above: Performed By: #### C MP, MG #### [address] Aspartate aminotransferase [ Enzymatic activity/volume] in Serum or PlasmaOrdered By: Supaacosta Mindyandria on 01-20-2024 AST [Catalytic activity/Vol] 21 U/L Normal 13-39 [facility] Comment on above: Performed By: #### C MP, MG #### [address] Automated basophil %Ordered By: Supaacosta RiveraTamannamicheal on 01-20-2024 Basophils/100 WBC (Bld) 1.1 % Normal . [facility] [place] Comment on above: Performed By: #### C BC #### [address] Automated basophil countOrde red By: Karly Guillenandria on 01-20-2024 Basophils (Bld) [#/Vol] 0.1 10*3/uL Normal 0.0-0.2 [facility] Comment on above: Result Comment: PERF ORMED BY: [place] [address] PATHOLOGIST [employer] EQUIPMENT REPAIRER CHANDAN WINSTON M.D. Performed By: #### C BC #### [address] Automated blood monocyte cou ntOrdered By: Supaacosta Alyshamicheal on 01-20-2024 Monocytes (Bld) [#/Vol] 0.7 10*3/uL Normal 0.0-0.8 [facility] Comment on above: Performed By: #### C BC #### [address] Automated eosinophil %Ordere d By: d Al-Tamannaraandria on 01-20-2024 Eosinophils/100 WBC (Bld) 6.2 % Normal . [facility] Comment on above: Performed By: #### C BC #### [address] Automated eosinophil countOr dered By: d Umang-aTmannaraandria on 01-20-2024 Eosinophils (Bld) [#/Vol] 0.3 10*3/uL Normal 0.0-0.45 [facility] Comment on above: Performed By: #### C BC #### [address] Automated monocyte %Ordered By: [facility] Umang-Tamannaraandria on 01-20-2024 Monocytes/100 WBC (Bld) 12.2 % Normal . [facility] Comment on above: Performed By: #### C BC #### [address] Automated neutrophil %Ordere d By: [facility] Umang-Carmenandria on 01-20-2024 Neutrophils/100 WBC (Bld) 51.4 % Normal . [facility] Comment on above: Performed By: #### C BC #### [address] Bilirubin.total [Mass/volume ] in Serum or PlasmaOrdered By: acosta Obrien-Radha on 01-20-2024 Bilirubin [Mass/Vol] 0.5 mg/dL Normal 0.3-1.0 [facility] Comment on above: Performed By: #### C MP, MG #### [address] Calcium [Mass/volume] in Ser um or PlasmaOrdered By: d Al-Marraandria on 01-20-2024 Calcium [Mass/Vol] 8.9 mg/dL Normal 8.6-10.3 [facility] Comment on above: Performed By: #### C MP, MG #### [place] [address] [place] Carbon dioxide, total [Moles /volume] in Serum or PlasmaOrdered By: Karly Garcia on 01-20-2024 CO2 [Moles/Vol] 27.1 mmol/L Normal 21.0-31.0 [facility] Comment on above: Performed By: #### C MP, MG #### [address] Chloride [Moles/volume] in S ray or PlasmaOrdered By: Karly Nielsen on 01-20-2024 Chloride [Moles/Vol] 106 mmol/L Normal 98-107 [facility] Comment on above: Performed By: #### C MP, MG #### [address] Complete Blood Count Auto Di ffon 01-20-2024 Mean Corpuscular HGB Conc 34.6 g/dL Normal 32.5-35.6 [facility] Comment on above: Performed By: #### C BC #### [address] NRBC% 0.1 /100{WBC} Normal 0-0.5 [facility] Comment on above: Performed By: #### C BC #### [address] Comprehensive Metabolic Pane robinson 01-20-2024 Albumin [Mass/Vol] 3.9 g/dL Normal 3.5-5.7 [facility] Comment on above: Performed By: #### C MP, MG #### [address] Creatinine Clr Calc Pharmacy 96.96 Normal [facility] Comment on above: Performed By: #### C MP, MG #### [address] GFR/1.73 sq M.predicted MDRD (S/P/Bld) [Vol rate/Area] mL/min/{1.73_m2} Normal [facility] Comment on above: Performed By: #### C MP, MG #### [place] [address] [place] Creatinine [Mass/volume] in Serum or PlasmaOrdered By: Karly Nielsen on 01-20-2024 Creatinine [Mass/Vol] 1.06 mg/dL Normal 0.70-1.30 [facility] Comment on above: Performed By: #### C MP, MG #### [facility] [address] Erythrocyte distribution wid th [Ratio] by Automated countOrdered By: acosta Garcia on 01-20-2024 Erythrocyte distribution width (RBC) [Ratio] 12.2 % Normal 12.0-14.8 [facility] Comment on above: Performed By: #### C BC #### [address] Erythrocytes [#/volume] in B lood by Automated countOrdered By: acosta Nielsen on 01-20-2024 RBC (Bld) [#/Vol] 4.09 10*6/uL Normal 3.90-5.60 [facility] Comment on above: Performed By: #### C BC #### [address] Glucose [Mass/volume] in Ser um or PlasmaOrdered By: Karly Nielsen on 01-20-2024 Glucose [Mass/Vol] 131 mg/dL High 70-100 [facility] Comment on above: ADA recommended refe rence rangeRandom Glucose Reference Range is dependent on time and content of last meal. Glucose of more than 200 mg/dL in a nonstressed, ambulatory subject supports the diagnosis of Diabetes Mellitus. Result Comment: [place] om Glucose Reference Range is dependent on time and content of last meal. Glucose of more than 200 mg/dL in a nonstressed, ambulatory subject supports the diagnosis of Diabetes Mellitus. ADA recommended reference range Performed By: #### C MP, MG #### [address] Hematocrit [Volume Fraction] of Blood by Automated countOrdered By: Karly Garcia on 01-20-2024 Hematocrit (Bld) [Volume fraction] 39.5 % Normal 38.8-50.0 [facility] Comment on above: Performed By: #### C BC #### [address] Hemoglobin [Mass/volume] in BloodOrdered By: Karly Nielsen on 01-20-2024 Hemoglobin (Bld) [Mass/Vol] 13.7 g/dL Normal 13.0-17.0 [facility] Comment on above: Performed By: #### C BC #### [address] Leukocytes [#/volume] correc evelyn for nucleated erythrocytes in Blood by Automated counOrdered By: Karly Nielsen on 01-20-2024 WBC corrected for nucl RBC Auto (Bld) [#/Vol] 5.4 10*3/uL 4.1-10.5 [facility] Leukocytes [#/volume] in Blo od by Automated countOrdered By: Karly Nielsen on 01-20-2024 WBC (Bld) [#/Vol] 5.4 10*3/uL Normal 4.1-10.5 [facility] Comment on above: Performed By: #### C BC #### [address] Lymphocytes [#/volume] in Bl ood by Automated countOrdered By: Karly Nielsen on 01-20-2024 Lymphocytes (Bld) [#/Vol] 1.6 10*3/uL Normal 1.00-4.8 [facility] Comment on above: Performed By: #### C BC #### [place] [address] [place] Lymphocytes/100 leukocytes i n Blood by Automated countOrdered By: Karly Nielsen on 01-20-2024 Lymphocytes/100 WBC (Bld) 29.1 % Normal . [facility] Comment on above: Performed By: #### C BC #### [place] [address] [place] MCH [Entitic mass] by Automa evelyn countOrdered By: Karly Nielsen on 01-20-2024 MCH (RBC) [Entitic mass] 33.4 pg Normal 27.5-35.2 [facility] Comment on above: Performed By: #### C BC #### [address] MCHC Auto (RBC) [Mass/Vol]Or dered By: Karly Nielsen on 01-20-2024 MCHC (RBC) [Mass/Vol] 34.6 g/dL 32.5-35.6 [facility] MCV [Entitic volume] by Auto mated countOrdered By: Karly Nielsen on 01-20-2024 MCV (RBC) [Entitic vol] 96.6 fL Normal 83.5-101 F [facility] [place] Comment on above: Performed By: #### C BC #### [address] Magnesium [Mass/volume] in S ray or PlasmaOrdered By: Karly Nielsen on 01-20-2024 Magnesium [Mass/Vol] 2.2 mg/dL Normal 1.9-2.7 [facility] Comment on above: Result Comment: PERF ORMED BY: [place] [address] PATHOLOGIST [employer] E[employer] REPAIRER CHANDAN WINSTON M.D. Performed By: #### C MP, MG #### [address] Neutrophils [#/volume] in Bl ood by Automated countOrdered By: acosta Nielsen on 01-20-2024 Neutrophils (Bld) [#/Vol] 2.8 10*3/uL Normal 1.8-7.7 [facility] Comment on above: Performed By: #### C BC #### [address] No Panel InformationOrdered By: Karly Nielsen on 01-20-2024 Estimated GFR (CKD-EPI) > 60.0 mL/Min [facility] Creatinine Clearance (Chem 96.96 [facility] Nucleated erythrocytes [Pres ence] in Blood by Automated countOrdered By: Karly Nielsen on 01-20-2024 Nucleated RBC Auto Ql (Bld) 0.1 /100{WBC} 0-0.5 [facility] Platelet mean volume [Entiti c volume] in Blood by Automated countOrdered By: acosta Nielsen on 01-20-2024 Platelet mean volume (Bld) [Entitic vol] 7.7 fL Normal 6.6-10.1 [facility] Comment on above: Performed By: #### C BC #### [address] Platelets [#/volume] in Bloo d by Automated countOrdered By: Karly Nielsen on 01-20-2024 Platelets (Bld) [#/Vol] 206 10*3/uL Normal 150-450 [facility] Comment on above: Performed By: #### C BC #### [address] Potassium [Moles/volume] in Serum or PlasmaOrdered By: acosta Nielsen on 01-20-2024 Potassium [Moles/Vol] 4.5 mmol/L Normal 3.5-5.1 [facility] Comment on above: Performed By: #### C MP, MG #### [address] Protein [Mass/volume] in Ser um or PlasmaOrdered By: Karly Nielsen on 01-20-2024 Protein [Mass/Vol] 6.8 g/dL Normal 6.4-8.9 [facility] Comment on above: Performed By: #### C MP, MG #### [address] Serum globulin measurement b y calculation (mass/volume)Ordered By: Karly Garcia on 01-20-2024 Globulin (S) [Mass/Vol] 2.9 g/dL Normal [facility] Comment on above: Performed By: #### C MP, MG #### [address] Serum or plasma albumin/glob ulin mass ratioOrdered By: Karly Nielsen on 01-20-2024 Albumin/Globulin [Mass ratio] 1.3 {ratio} Normal [facility] Comment on above: Performed By: #### C MP, MG #### [address] Serum or plasma anion gap de terminationOrdered By: Karly Nielsen on 01-20-2024 Anion gap [Moles/Vol] 8.4 mmol/L Normal 6.0-15.0 [facility] Comment on above: Performed By: #### C MP, MG #### [address] Sodium [Moles/volume] in Ser um or PlasmaOrdered By: Karly Nielsen on 01-20-2024 Sodium [Moles/Vol] 137 mmol/L Normal 136-145 [facility] Comment on above: Performed By: #### C MP, MG #### [address] Urea nitrogen [Mass/volume] in Serum or PlasmaOrdered By: Karly Nielsen on 01-20-2024 Urea nitrogen [Mass/Vol] 18 mg/dL Normal 7-25 [facility] Comment on above: Performed By: #### C MP, MG #### [address] XR chest 1V portableon 01-19 XR chest 1V portable [facility] [place] [address] XRay Report Signed Patient: Alen Calderon MR#: [id number] : 1965 Acct:[id number] Age/Sex: 58 / M ADM Date: 01/20/24 Loc: [place] Room: Type: [facility] Attending Dr: Nohemi Vizcaino DO Copies to: Nohemi Vizcaino DO Ordering Provider: Nohemi Vizcaino DO Date of Service: 01/20/24 XR/XR chest 1V portable: POST PORT Plain film chest Single view HISTORY: Oiipyl-f-Ehmx insertion COMPARISON: None FINDINGS: SUPPORT DEVICES: None POSTSURGICAL CHANGES: Tip of the Gyarkv-a-Ghvn overlies the distal SVC HEART: Within normal limits PULMONARY DIONNA: Within normal limits MEDIASTINUM: Unremarkable LUNGS AND PLEURA: Mild basilar atelectasis. Minimal blunting of the left costophrenic angle. No pneumothorax. BONY STRUCTURES: Intact ADDITIONAL FINDINGS None XR/XR chest 1V portable IMPRESSION: No postprocedure pneumothorax. Mild atelectasis. Impression dictated by: Ishaan Hanley M.D.01/20/2024 8:26 AM Dictation Location: [place] [address] Transcribed By: [facility] 01/20/24825 Dictated By: Ishaan Hanley DO 01/20/24824 Signed By: 01/20/24825 Normal [facility] echo transthoracicon [facility] echo transthoracic [facility] [place] [address] [place] [address] Echocardiogram Signed Patient: Alen Calderon MR#: [id number] : 1965 Acct:[id number] Age/Sex: 58 / M ADM Date: 01/14/24 Loc: Room: Type: [facility] Attending Dr: Karly Nielsen MD Ordering Provider: Karly Nielsen MD Date of Service: 01/14/24 [facility] echo transthoracic: 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, unspecified Copies to: MD Abraham Radford MD Weight: 250 lb Performed By: Sola Rhodes RDCS BSA: 2.3 m2 Reason For Study: Malignant [...] By: Abraham Sin MD 01/14/24 1230 Normal [place] [facility] [place] 12-25-2023 L Specimen: [id number] Received: 12/25/23 Status: ELGIN Martinez Num: [id number] Spec Type: Surgical Subm Dr: Charly Nowak DO Tissues: A TONSIL - biopsy (RT TONSIL BX) Procedures: HE/5, Gross/Micro L4, CINtec p16, p40, FS HE/2, DIFF QWIK Age/ Patient Sex Location Account Attending Physician Alen Calderon 58/M [place] [id number] Charly Nowak DO SPEC NUM: [id number] RECD: 12/25/23 STATUS: ELGIN MARTINEZ NUM: [id number] LILI: 12/25/[address] [facility] [address]: Charly Nowak DO ENTERED: 12/25/23 [facility] DR: SPEC TYPE: Surgical DEPT: S ORDERED: [...] touch prep slides are performed. -------- Specimen: [id number] Received: 12/25/23 Status: ELGIN Martinez Num: [id number] Spec Type: Surgical Subm Dr: Charly Nowak DO Tissues: A TONSIL - biopsy (RT TONSIL BX) Procedures: HE/5, Gross/Micro L4, CINtec p16, p40, FS HE/2, DIFF QWIK -------- Patient: Alen Calderon [id number] (Continued) -------- Specimen: [id number] Received: 12/25/23 (Continued) Signed (signature on file) Melinda Iyer MD 12/29/23 1919 -------- Specimen: [id number] Received: 12/25/23 Status: ELGIN Martinez Num: [id number] Spec Type: Surgical Subm Dr: Charly Nowak DO Tissues: A TONSIL - biopsy (RT TONSIL BX) Procedures: HE/5, Gross/Micro L4, CINtec p16, p40, FS HE/2, DIFF QWIK -------- Patient: Alen Calderon [id number] (Continued) -------- Specimen: [id number] Received: 12/25/23 (Continued) Intraoperative Diagnosis FX Dx: Squamous cell carcinoma Frozen section read by: Dr. Iyer. 12/25/2023 at 1115 CPT Codes 72429 94414 [id number] -------- -------- Specimen: [id number] Received: 12/25/23 Status: ELGIN Martinez Num: [id number] Spec Type: Surgical Subm Dr: Charly Nowak DO Tissues: A TONSIL - biopsy (RT TONSIL BX) Procedures: HE/5, Gross/Micro L4, CINtec p16, p40, FS HE/2, DIFF QWIK -------- Patient: Alen Calderon [id number] (Continued) -------- Signed (signature on file) Josh-Wally Iyer MD 12/29/231918 Normal [facility] L Specimen: [id number] Received: 12/25/23 Status: ELGIN Martinez Num: [id number] Spec Type: Cytology Subm Dr: Charly Nowak DO Tissues: A FNA SLIDES PATH (RT NECK MASS) Procedures: HE/2, -, PAPSTN/16 Age/ Patient Sex Location Account Attending Physician Alen Calderon 58/M [place] [id number] Charly Nowak DO SPEC NUM: [id number] RECD: 12/25/23 STATUS: ELGIN MARTINEZ NUM: [id number] LILI: 12/25/23-[address] [facility] [address]: Charly Nowak DO ENTERED: 12/25/23 [facility] [address]: SPEC TYPE: Cytology DEPT: CNG ENTERED BY: [id number] RECV BY: [id number] ORDERED: HE/2, -, PAPSTN/16 ORDERED: HE/2, -, PAPSTN/16 Pathological Diagnosis Right neck mass, FNA cytology: -Positive for metastatic malignancy, consistent with metastatic carcinoma -Please also see concurrent surgical case at [id number] Clinical Information Rt neck mass Right level [...] Received: 12/25/23 Status: ELGIN [place] Num: [id number] Spec Type: Cytology Subm Dr: Charly Nowak DO Tissues: A FNA SLIDES PATH (RT NECK MASS) Procedures: HE/2, -, PAPSTN/16 -------- Patient: LemuelAnnel jeffriesn [id number] (Continued) -------- Specimen: [id number] Received: 12/25/23 (Continued) Signed (signature on file) Melinda Iyer MD 12/30/23 1545 -------- Specimen: C2 Received: 12/25/23 Status: ELGIN Martinez Num: [id number] Spec Type: Cytology Subm Dr: Charly Nowak DO Tissues: A FNA SLIDES PATH (RT NECK MASS) Procedures: HE/2, -, PAPSTN/16 -------- Patient: Alen Calderon [id number] (Continued) -------- Specimen: [id number] Received: 12/25/23 (Continued) Immediate Evaluation Immediate adequacy assessment: Positive for metastatic malignancy. Reported by Dr. Iyer 12/25/23' CPT Codes 26679 -------- -------- Specimen: [id number] Received: 12/25/23 Status: ELGIN Martinez Num: [id number] Spec Type: Cytology Subm Dr: Charly Nowak DO Tissues: A FNA SLIDES PATH (RT NECK MASS) Procedures: HE/Kj, -, PAPSTN/16 -------- Patient: LemuelmervinAlen [id number] (Continued) -------- Signed (signature on file) Melinda Iyer MD 12/30/23 1545 Normal [facility] Capillary blood glucose malissa urement by glucometer (mass/volume)Ordered By: Charly Nowak on 12-24-2023 Glucose [Mass/Vol] 121 mg/dL Normal [facility] Comment on above: Random Glucose Refer ence Range is dependent on time and content of last meal. Glucose of more than 200 mg/dL in a nonstressed, ambulatory subject supports the diagnosis of Diabetes Mellitus. Result Comment: [place] om Glucose Reference Range is dependent on time and content of last meal. Glucose of more than 200 mg/dL in a nonstressed, ambulatory subject supports the diagnosis of Diabetes Mellitus. PERFORMED BY: [place] [address] PATHOLOGIST [employer]ERE[employer] EQUIPMENT REPAIRER CHANDAN WINSTON M.D. Performed By: #### G LULS #### Point of Care testing , PET tumor subq tx strat sb-m ton 12-24-2023 PET tumor subq tx strat sb-mt [facility] [place] [address] Nuclear Medicine Report Signed Patient: Alen Calderon MR#: [id number] : 1965 Acct:[id number] Age/Sex: 58 / M ADM Date: 12/24/23 Loc: Room: Type: [facility] Attending Dr: Charly Nowak DO Copies to: DO Bruce Cash II, MD Ordering Provider: Charly Nowak DO Date of Service: 12/24/23 PET/PET tumor subq tx strat sb-mt: INITIAL/84355/ C76.0 PET tumor subq tx strat sb-mt [...] Bruce Serrano M.D.12/24/2023 10:50 AM Dictation Location: [place] [address] Transcribed By: [facility] 12/24/23 1050 Dictated By: Bruce Serrano II, MD 12/24/23 1007 Signed By: 12/24/23 1050 Normal [facility] Basic Metabolic Panelon GFR/1.73 sq M.predicted MDRD (S/P/Bld) [Vol rate/Area] mL/min/{1.73_m2} Normal [facility] Comment on above: Performed By: #### C MG VERNA #### [address] Calcium [Mass/volume] in Ser um or PlasmaOrdered By: Charly Nowak on 12-23-2023 Calcium [Mass/Vol] 9.8 mg/dL Normal 8.6-10.3 [facility] Comment on above: Result Comment: PERF ORMED BY: [place] [address] PATHOLOGIST [employer] EQUIPMENT REPAIRER CHANDAN WINSTON M.D. Performed By: #### C MP, MG #### [place] [address] [place] Carbon dioxide, total [Moles /volume] in Serum or PlasmaOrdered By: Charly Nowak on 12-23-2023 CO2 [Moles/Vol] 28.7 mmol/L Normal 21.0-31.0 [facility] Comment on above: Performed By: #### C MP, MG #### [facility] [address] [place] [address] [place] Chloride [Moles/volume] in S ray or PlasmaOrdered By: Charly Nowak on 12-23-2023 Chloride [Moles/Vol] 102 mmol/L Normal 98-107 [facility] Comment on above: Performed By: #### C MP, MG #### [place] [address] [place] Creatinine [Mass/volume] in Serum or PlasmaOrdered By: Charly Nowak on 12-23-2023 Creatinine [Mass/Vol] 0.91 mg/dL Normal 0.70-1.30 [facility] Comment on above: Performed By: #### C MP, MG #### [place] [address] [place] ECG 12 lead ECGon 12-23-2023 ECG 12 lead ECG [facility] [place] [address] [place] [address] Electrocardiograph Report Signed Patient: Alen Calderon MR#: [id number] : 1965 Acct:[id number] Age/Sex: 58 / M ADM Date: 12/23/23 Loc: Room: Type: [facility] Attending Dr: Charly Nowak DO Ordering Provider: [...] Hoyt MD 0 12/23/23 1205 Normal [facility] Glucose [Mass/volume] in Ser um or PlasmaOrdered By: Charly Nowak on 12-23-2023 Glucose [Mass/Vol] 133 mg/dL High 70-100 [facility] Comment on above: ADA recommended refe rence rangeRandom Glucose Reference Range is dependent on time and content of last meal. Glucose of more than 200 mg/dL in a nonstressed, ambulatory subject supports the diagnosis of Diabetes Mellitus. Result Comment: [place] om Glucose Reference Range is dependent on time and content of last meal. Glucose of more than 200 mg/dL in a nonstressed, ambulatory subject supports the diagnosis of Diabetes Mellitus. ADA recommended reference range Performed By: #### C VERNA, MG #### [facility] [address] No Panel InformationOrdered By: Charly Nowak on 12-23-2023 Estimated GFR (CKD-EPI) > 60.0 mL/Min [facility] Creatinine Clearance (Chem N/A [facility] Potassium [Moles/volume] in Serum or PlasmaOrdered By: Charly Nowak on 12-23-2023 Potassium [Moles/Vol] 4.8 mmol/L Normal 3.5-5.1 [facility] Comment on above: Performed By: #### C VERNA, MG #### [facility] [address] Serum or plasma anion gap de terminationOrdered By: Charly Nowak on 12-23-2023 Anion gap [Moles/Vol] 12.1 mmol/L Normal 6.0-15.0 [facility] Comment on above: Performed By: #### C MP, MG #### [facility] [address] [place] [address] [place] Sodium [Moles/volume] in Ser um or PlasmaOrdered By: Charly Nowak on 12-23-2023 Sodium [Moles/Vol] 138 mmol/L Normal 136-145 [facility] Comment on above: Performed By: #### C MP, MG #### [facility] [address] Urea nitrogen [Mass/volume] in Serum or PlasmaOrdered By: Charly Nowak on 12-23-2023 Urea nitrogen [Mass/Vol] 18 mg/dL Normal 7-25 [facility] Comment on above: Performed By: #### C MP, MG #### [facility] [address] PROF 14(COMP METB)on 022 Albumin [Mass/Vol] 3.8 g/dL Normal 3.4-5.0 [facility] Comment on above: Performed By: #### C MP, TSH #### [facility] [address] [place] [address] [address] Edilson Iyer Albumin/Globulin [Mass ratio] 0.9 {ratio} [facility] Comment on above: Performed By: #### C MP, TSH #### [facility] [address] [place] [address] [address] Edilson Iyer ALP [Catalytic activity/Vol] 69 U/L Normal 46-116 [facility] Comment on above: Performed By: #### C MP, TSH #### [facility] [address] [place] [address] [address] Edilson Iyer ALT [Catalytic activity/Vol] 29 U/L Normal 16-63 [facility] Comment on above: Performed By: #### C MP, TSH #### [facility] [address] [place] [address] [address] Edilson Iyer Anion gap [Moles/Vol] 7.7 mmol/L Normal [facility] Comment on above: Performed By: #### C MP, TSH #### [facility] [address] [place] [address] [address] Edilson Iyer AST [Catalytic activity/Vol] 18 U/L Normal 15-37 [facility] Comment on above: Performed By: #### C MP, TSH #### [facility] [address] [place] [address] [address] Edilson Iyer Bilirubin [Mass/Vol] 0.4 mg/dL Normal 0.2-1.0 [facility] Comment on above: Performed By: #### C MP, TSH #### [facility] [address] [place] [address] [address] Edilson Iyer Calcium [Mass/Vol] 9.0 mg/dL Normal 8.5-10.1 [facility] Comment on above: Performed By: #### C MP, TSH #### [facility] [address] [place] [address] Dr. Edilson Iyer Chloride [Moles/Vol] 104 mmol/L Normal 98-107 [facility] Comment on above: Performed By: #### C MP, TSH #### [facility] [address] [place] [address] [address] Edilson Iyer CO2 [Moles/Vol] 29.4 mmol/L Normal 21.0-32.0 [facility] Comment on above: Performed By: #### C MP, TSH #### [facility] [address] [place] [address] [address] Edilson Iyer Creatinine [Mass/Vol] 1.12 mg/dL Normal 0.70-1.30 [facility] Comment on above: Performed By: #### C MP, TSH #### [facility] [address] [place] [address] [address] Edilson Iyer EGFR-AF BOTSWANAN >60 Normal >=60 [facility] Comment on above: Performed By: #### C MP, TSH #### [facility] [address] [place] [address] [address] Edilson Iyer EGFR-NON AF BOTSWANAN >60 Normal >=60 [facility] Comment on above: Performed By: #### C MP, TSH #### [facility] [address] [place] [address] [address] Edilson Iyer Globulin (S) [Mass/Vol] 4.0 g/dL Normal [facility] Comment on above: Performed By: #### C MP, TSH #### [facility] [address] [place] [address] [address] Edilson Iyer Glucose [Mass/Vol] 108 mg/dL Critically high 74-106 [facility] Comment on above: Performed By: #### C MP, TSH #### [facility] [address] [place] [address] [address] Edilson Iyer Potassium [Moles/Vol] 4.1 mmol/L Normal 3.5-5.1 [facility] Comment on above: Performed By: #### C MP, TSH #### [facility] [address] [place] [address] Dr. Edilson Iyer Protein [Mass/Vol] 7.8 g/dL Normal 6.4-8.2 [facility] Comment on above: Performed By: #### C MP, TSH #### [facility] [address] [place] [address] Dr. Edilson Iyer Sodium [Moles/Vol] 137 mmol/L Normal 136-145 [facility] Comment on above: Performed By: #### C MP, TSH #### [facility] [address] [place] [address] Dr. Edilson Iyer Urea nitrogen [Mass/Vol] 23.0 mg/dL Critically high 7.0-18.0 [facility] Comment on above: Performed By: #### C MP, TSH #### [facility] [address] [place] [address] Dr. Edilson Iyer Urea nitrogen/Creatinine [Mass ratio] 20.5 mg/mg Normal [facility] Comment on above: Performed By: #### C MP, TSH #### [facility] [address] [place] [address] Dr. Edilson Iyer TSHon 05-08-2022 TSH 1.420 uIU/mL Normal 0.358-3.740 [facility] Comment on above: Performed By: #### C MP, TSH #### [facility] [address] [place], [place] [address] Dr. Edilson Iyer Cardiovascular Lab Reporton 03-20-2022 Cardiovascular Lab Report [facility] Patient Name: Alen Calderon MR #: [id number] [facility] Physician: Theo Virgen MD Service Date: 03/20/2022 Department of Birthdate: 1965 Medicine Room #: CC Division of Cardiology Adult Cardiovascular Services [address] [place] [address] Cardiovascular Laboratory Report ATRIAL FIBRILLATION ABLATION PROCEDURE [...] CS Catheter (EZ Steer) 9Fx1: ICE catheter. 05560I Heparin bolus was given followed by additional bolus and continuous intravenous drip to target ACT around 350. An intracardiac ultrasound catheter was inserted into the right atrium to examine the right atrial anatomy, atrial septum, pulmonary vein anatomy and to monitor for pericardial effusion and guide transseptal access. At baseline, there no pericardial effusion and no FLORENTINO clot. Esophagus was mapped using the [employer]roSOUND 3D mapping software and noted to be [...] (more content not included)... Normal [facility] POC GLUCOSE LABon 03-20-2022 Glucose [Mass/Vol] 117 mg/dL High 70-[address] [facility] Comment on above: Performed By: #### 8 5499 #### [facility] [address] [facility] Glucose [Mass/Vol] 136 mg/dL High 70-100 [facility] Comment on above: Performed By: #### 8 5499 #### [facility] [address] [facility]. [address] PROTHROMBIN TIMEon INR Coag (PPP) [Relative time] 1.06 {INR} Normal 0.91-1.16 [facility] Comment on above: Order Comment: No: [...] 1995;108:231S-246S. Performed By: #### 5 6101 #### [facility] [address] [facility] [place] [address], [facility] PT Coag (PPP) [Time] 13.8 s Normal 12.3-14.[address] [facility] Comment on above: Order Comment: No: D o not add to previous draw Result Comment: ALL RESULTS MUST BE INTERPRETED WITH RESPECT TO BLOOD DRAWING ARTIFACT OR DILUTION ERROR OF ANTICOAGULANT AT THE TIME OF SAMPLING. Performed By: #### 5 6101 #### [facility] [address] [facility] [place] [place] [address], [facility] Covid-19 PCR (CVDTB)on 02-19 SARS-CoV-2 (COVID-19) RNA WERO+probe Ql (Unsp spec) Not detected Normal NOT DETECTED [facility] Comment on above: Result Comment: This test is not yet approved or cleared by the [place] FDA. When there are no FDA-approved or cleared tests available, and other criteria are met, FDA can make tests available under an emergency access mechanism called an Emergency Use Authorization (EUA). The EUA for this test is supported by the Filler Picker of Health and Human Service's (HHS's) declaration [...] consistent with SARS-CoV-2. Performed By: #### C VDTBH #### [facility] [address] [place] [address] Dr. Edilson Iyer BASIC METABOLIC PANELon 02-18 Calcium [Mass/Vol] 10.0 mg/dL Normal 8.6-10.[address] [facility] Comment on above: Performed By: #### 0 0071 #### [facility] [address] [place] [address], [facility] Chloride [Moles/Vol] 97 mmol/L Low 98-[address] [facility] Comment on above: Performed By: #### 0 0071 #### [facility] [address] [place] [address], [facility] CO2 [Moles/Vol] 31 mmol/L Normal 21-[address] [facility] Comment on above: Performed By: #### 0 0071 #### [facility] [address] [place] [address], [facility] Creatinine [Mass/Vol] 1.11 mg/dL Normal 0.70-1.[address] [facility] Comment on above: Performed By: #### 0 0071 #### [facility] [address] [place] [address], [facility] GFR/1.73 sq M.predicted among non-blacks MDRD (S/P/Bld) [Vol rate/Area] mL/min/{1.73_m2} Normal >[address] [facility] Comment on above: Result Comment: [facility]'s estimated glomerular filtration rate (eGFR) will no [...] individuals. Performed By: #### 0 0071 #### [facility] [address] [place] [address], [facility] Glucose [Mass/Vol] 124 mg/dL High 70-[address] [facility] Comment on above: Performed By: #### 0 0071 #### [facility] [address] [place] [address], [facility] Potassium [Moles/Vol] 4.3 mmol/L Normal 3.5-5.[address] [facility] Comment on above: Performed By: #### 0 0071 #### [facility] [address] [place] [address], [facility] Sodium [Moles/Vol] 136 mmol/L Normal 136-[address] [facility] Comment on above: Performed By: #### 0 1 #### [facility] [address] [place] [address], [facility] Urea nitrogen [Mass/Vol] 20 mg/dL Normal 7-[address] [facility] Comment on above: Performed By: #### 0 1 #### [facility] [address] [facility] [place] [address], [facility] CBC COMPLETE BLOOD COUNTon 0 - Erythrocyte distribution width (RBC) [Ratio] 12.4 % Normal 11.5-15.[address] [facility] Comment on above: Performed By: #### 5 0608 #### [facility] [address] [place] [address], [facility] Hematocrit (Bld) [Volume fraction] 46.7 % Normal 39.0-50.[address] [facility] Comment on above: Performed By: #### 5 08 #### [facility] [address] [facility] [place] [address], [facility] Hemoglobin (Bld) [Mass/Vol] 16.2 g/dL Normal 13.0-17.[address] [facility] Comment on above: Performed By: #### 5 0608 #### [facility] [address] [place] [address], [facility] MCH (RBC) [Entitic mass] 32.9 pg Normal 27.0-33.[address] [facility] Comment on above: Performed By: #### 5 08 #### [facility] [address] [place] [address], [facility] MCHC (RBC) [Mass/Vol] 34.7 g/dL Normal 32.0-35.[address] [facility] Comment on above: Performed By: #### 5 0608 #### [place] [address], [facility] MCV (RBC) [Entitic vol] 94.9 fL Normal 82.0-98.[address] [facility] Comment on above: Performed By: #### 5 0608 #### [address] Nucleated RBC/100 WBC (Bld) [Ratio] 0 % Normal 0-[address] [facility] Comment on above: Performed By: #### 5 0608 #### [place] [address], [facility] PLAT CNT 260 10*3/uL Normal 150-[address] [facility] Comment on above: Performed By: #### 5 0608 #### [place] [address], [facility] RBC (Bld) [#/Vol] 4.92 10*6/uL Normal 4.20-5.[address] [facility] Comment on above: Performed By: #### 5 0608 #### [place] [address], [facility] WBC (Bld) [#/Vol] 7.55 10*3/uL Normal 4.00-10.[address] [facility] Comment on above: Performed By: #### 5 0608 #### [place] [address], [facility] CTA CHESTon 03-05-[address] [facility] Department of Radiology [address] [place] [phone] Patient Name: ALEN CALDERON : 1965 Sex: [...] achievable. Electronically signed: Asif Urrutia. Transcribed by: [email or web address], User Resident: Electronically Signed by: ASIF URRUTIA @ 03/09/2022 07:[address] [facility] Comment on above: Order Comment: AFib Ablation 03/20 ECHOCARDIO M/2D COMPLETEon 0 12-27-2021 ECHOCARDIO M/2D COMPLETE Patient: ALEN CALDERON Exam Date: 12/27/2021 : 1965 Gender:M Ordering : THEO VIRGEN Admission #: [id number] Family : DR CHARLY HOOPER D.O. Order #: [id number] CLICK HERE TO VIEW EXAM ECHOCARDIOGRAM REPORT [...] Area(A4C): 23.40 cm2 Left Atrium Systolic Volume(A2C): 30239 mm3 Left Atrium Systolic Volume(A4C): 69868 mm3 Mitral Valve MV E to A [...] Gradient: 3 mm[Hg] Right Atrium Dictated by: Billie Espinoza M.D. on 12/27/2021 at 20:13 Approved by: Billie Espinoza M.D. on 12/27/2021 at 20:15 Normal [facility] Vital Signs Date Time Vital Sign Value Performing Clinician Facility 01-25-2025 08:20-0400 Body height 177.8 cm Charly Murcek DO Work Phone: [facility] 01-25-2025 08:20-0400 Body mass index (BMI) [Ratio] 33 kg/m2 Charly Murcek DO Work Phone: [facility] 01-25-2025 08:20-0400 Body weight 104.33 kg Charly Murcek DO Work Phone: [facility] 10-25-2024 14:09-0400 Body height 177.8 cm Charly Murcek DO Work Phone: [facility] 10-25-2024 14:09-0400 Body mass index (BMI) [Ratio] 33 kg/m2 Cahrly Murcek DO Work Phone: [facility] 10-25-2024 14:090400 Body weight 104.33 kg Charly Garzacek DO Work Phone: [facility] 10-11-2024 13:27-0400 Body height 177.8 cm Charly Garzacek DO Work Phone: [facility] 10-11-2024 13:27-0400 Body mass index (BMI) [Ratio] 33 kg/m2 Charly Murcek DO Work Phone: [facility] 10-11-2024 13:270400 Body weight 104.33 kg Charly Garzacek DO Work Phone: [facility] 08-30-2024 13:17-0500 Body height 177.8 cm Charly Garzacek DO Work Phone: [facility] 08-30-2024 13:17-0500 Body mass index (BMI) [Ratio] 33.43 kg/m2 Charly Garzacek DO Work Phone: [facility] 08-30-2024 13:170500 Body weight 105.69 kg Charly Garzacek DO Work Phone: [facility] 08-25-2024 09:29-0500 Body height 177.8 cm Charly Ball DO Work Phone: [facility] 08-25-2024 09:29-0500 Body mass index (BMI) [Ratio] 34 kg/m2 Charly Ball DO Work Phone: [facility] 08-25-2024 09:29-0500 Body temperature 98.6 [degF] Charly Ball DO Work Phone: [facility] 08-25-2024 09:29-0500 Body weight 107.67 kg Charly Ball DO Work Phone: [facility] 08-25-2024 09:29-0500 Diastolic blood pressure 82 mm[Hg] Charly Ball DO Work Phone: [facility] 08-25-2024 09:29-0500 Heart rate 71 /min Charly Ball DO Work Phone: [facility] 08-25-2024 09:29-0500 SaO2% (BldA) [Mass fraction] 97 % Charly Ball DO Work Phone: [facility] 08-25-2024 09:29-0500 Systolic blood pressure 122 mm[Hg] Charly Ball DO Work Phone: [facility] 07-30-2024 13:10-0500 Body temperature 97.8 [degF] Charly Ball DO Work Phone: [facility] 07-30-2024 13:10-0500 Diastolic blood pressure 75 mm[Hg] Charly Ball DO Work Phone: [facility] 07-30-2024 13:10-0500 Heart rate 59 /min Charly Ball DO Work Phone: [facility] 07-30-2024 13:10-0500 Respiratory rate 16 /min Charly Ball DO Work Phone: [facility] 07-30-2024 13:10-0500 SaO2% (BldA) [Mass fraction] 96 % Charly Ball DO Work Phone: [facility] 07-30-2024 13:10-0500 Systolic blood pressure 137 mm[Hg] Charly Ball DO Work Phone: [facility] 07-30-2024 11:49-0500 Body height 177.8 cm Charly Ball DO Work Phone: [facility] 07-30-2024 11:49-0500 Body weight 104.32 kg Charly Ball DO Work Phone: [facility] 07-19-2024 14:05-0500 Body height 177.8 cm Nohemi [employer] DO Work Phone: [facility] 07-19-2024 14:05-0500 Body mass index (BMI) [Ratio] 33.43 kg/m2 Nohemi Itzkowitz DO Work Phone: [facility] 07-19-2024 14:05-0500 Body weight 105.69 kg Nohemi Itcarloskowitz DO Work Phone: [facility] 07-19-2024 14:05-0500 Diastolic blood pressure 68 mm[Hg] Nohemi Itzkowitz DO Work Phone: [facility] 07-19-2024 14:05-0500 Systolic blood pressure 120 mm[Hg] Nohemi Itzkowitz DO Work Phone: [facility] 07-19-2024 13:30-0500 Body height 177.8 cm Charly Nowak DO Work Phone: [facility] 07-19-2024 13:30-0500 Body mass index (BMI) [Ratio] 34.44 kg/m2 Charly Nowak DO Work Phone: [facility] 07-19-2024 13:30-0500 Body weight 108.86 kg Charly Nowak DO Work Phone: [facility] 06-10-2024 11:32-0500 Body height 177.8 cm [facility] 06-10-2024 11:32-0500 Body mass index (BMI) [Ratio] 32.3 kg/m2 [facility] 06-10-2024 11:32-0500 Body temperature 97.8 [degF] [facility] 06-10-2024 11:32-0500 Body weight 102.05 kg [facility] 06-10-2024 11:32-0500 Diastolic blood pressure 92 mm[Hg] [facility] 06-10-2024 11:32-0500 Heart rate 68 /min [facility] 06-10-2024 11:32-0500 Respiratory rate 18 /min [facility] 06-10-2024 11:32-0500 SaO2% (BldA) [Mass fraction] 98 % [facility] 06-10-2024 11:32-0500 Systolic blood pressure 178 mm[Hg] [facility] 06-01-2024 08:49-0500 Body height 177.8 cm Charly Murcek DO Work Phone: [facility] 06-01-2024 08:49-0500 Body mass index (BMI) [Ratio] 35.15 kg/m2 Charly Murcek DO Work Phone: [facility] 06-01-2024 08:49-0500 Body weight 111.13 kg Charly Murcek DO Work Phone: [facility] 05-10-2024 13:50-0400 Body height 177.8 cm Charly Murcek DO Work Phone: [facility] 05-10-2024 13:50-0400 Body mass index (BMI) [Ratio] 35.15 kg/m2 Charly Murcek DO Work Phone: [facility] 05-10-2024 13:50-0400 Body weight 111.13 kg Charly Murcek DO Work Phone: [facility] 04-09-2024 11:15-0400 Body temperature 98.2 [degF] Charly Ball DO Work Phone: [facility] 04-09-2024 11:15-0400 Diastolic blood pressure 68 mm[Hg] Charly Ball DO Work Phone: [facility] 04-09-2024 11:15-0400 Heart rate 80 /min Charly Ball DO Work Phone: [facility] 04-09-2024 11:15-0400 Respiratory rate 18 /min Charly Ball DO Work Phone: [facility] 04-09-2024 11:15-0400 SaO2% (BldA) [Mass fraction] 100 % Charly Ball DO Work Phone: [facility] 04-09-2024 11:15-0400 Systolic blood pressure 125 mm[Hg] Charly Ball DO Work Phone: [facility] 04-08-2024 09:34-0400 Body height 177.8 cm DO Charly Ball Work Phone: [facility] 04-08-2024 09:34-0400 Body mass index (BMI) [Ratio] 30.4 kg/m2 DO Charly Ball Work Phone: [facility] 04-08-2024 09:34-0400 Body weight 96.16 kg DO Charly Ball Work Phone: [facility] 04-08-2024 09:34-0400 Diastolic blood pressure 97 mm[Hg] DO Charly Ball Work Phone: [facility] 04-08-2024 09:34-0400 Heart rate 79 /min DO Charly Ball Work Phone: [facility] 04-08-2024 09:34-0400 Respiratory rate 20 /min DO Charly Ball Work Phone: [facility] 04-08-2024 09:34-0400 SaO2% (BldA) [Mass fraction] 98 % DO Charly Ball Work Phone: [facility] 04-08-2024 09:34-0400 Systolic blood pressure 169 mm[Hg] DO Charly Ball Work Phone: [facility] 03-30-2024 09:29-0400 Body height 177.8 cm Charly Gregcek DO Work Phone: [facility] 03-30-2024 09:29-0400 Body mass index (BMI) [Ratio] 35.15 kg/m2 Charly Murcek DO Work Phone: [facility] 03-30-2024 09:29-0400 Body weight 111.13 kg Charly Murcek DO Work Phone: [facility] 03-18-2024 09:16-0400 Body height 177.8 cm DO Charly Ball Work Phone: [facility] 03-18-2024 09:16-0400 Body mass index (BMI) [Ratio] 30.7 kg/m2 DO Charly Ball Work Phone: [facility] 03-18-2024 09:16-0400 Body temperature 97.8 [degF] DO Charly Ball Work Phone: [facility] 03-18-2024 09:16-0400 Body weight 97.06 kg DO Charly Ball Work Phone: [facility] 03-18-2024 09:16-0400 Diastolic blood pressure 73 mm[Hg] DO Charly Ball Work Phone: [facility] 03-18-2024 09:16-0400 Heart rate 75 /min DO Charly Ball Work Phone: [facility] 03-18-2024 09:16-0400 Respiratory rate 20 /min DO Charly Ball Work Phone: [facility] 03-18-2024 09:16-0400 SaO2% (BldA) [Mass fraction] 100 % DO Charly Ball Work Phone: [facility] 03-18-2024 09:16-0400 Systolic blood pressure 116 mm[Hg] DO Charly Ball Work Phone: [facility] 03-17-2024 10:50-0400 Body temperature 97 [degF] DO Charly Ball Work Phone: [facility] 03-17-2024 10:50-0400 Diastolic blood pressure 60 mm[Hg] DO Charly Ball Work Phone: [facility] 03-17-2024 10:50-0400 Heart rate 77 /min DO Charly Ball Work Phone: [facility] 03-17-2024 10:50-0400 Respiratory rate 18 /min DO Charly Ball Work Phone: [facility] 03-17-2024 10:50-0400 SaO2% (BldA) [Mass fraction] 97 % DO Charly Ball Work Phone: [facility] 03-17-2024 10:50-0400 Systolic blood pressure 98 mm[Hg] DO Charly Ball Work Phone: [facility] 03-05-2024 09:28-0400 Diastolic blood pressure 77 mm[Hg] DO Charly Ball Work Phone: [facility] 03-05-2024 09:28-0400 Heart rate 64 /min DO Charly Ball Work Phone: [facility] 03-05-2024 09:28-0400 Respiratory rate 18 /min DO Charly Ball Work Phone: [facility] 03-05-2024 09:28-0400 SaO2% (BldA) [Mass fraction] 99 % DO Charly Ball Work Phone: [facility] 03-05-2024 09:28-0400 Systolic blood pressure 122 mm[Hg] DO Charly Ball Work Phone: [facility] 03-02-2024 08:18-0400 Body temperature 98.5 [degF] DO Charly Ball Work Phone: [facility] 03-02-2024 08:18-0400 Body weight 98.65 kg DO Charly Ball Work Phone: [facility] 02-25-2024 12:05-0400 Body temperature 97.6 [degF] DO Charly Ball Work Phone: [facility] 02-25-2024 12:05-0400 Body weight 103.87 kg DO Charly Ball Work Phone: [facility] 02-25-2024 12:05-0400 Diastolic blood pressure 76 mm[Hg] DO Charly Ball Work Phone: [facility] 02-25-2024 12:05-0400 Heart rate 67 /min DO Charly Ball Work Phone: [facility] 02-25-2024 12:05-0400 Respiratory rate 16 /min DO Charly Ball Work Phone: [facility] 02-25-2024 12:05-0400 SaO2% (BldA) [Mass fraction] 98 % DO Charly Ball Work Phone: [facility] 02-25-2024 12:05-0400 Systolic blood pressure 136 mm[Hg] DO Charly Ball Work Phone: [facility] 02-24-2024 16:34-0400 Body height 177.8 cm DO Charly Ball Work Phone: [facility] 02-24-2024 08:22-0400 Body temperature 98 [degF] DO Charly Ball Work Phone: [facility] 02-24-2024 08:22-0400 Diastolic blood pressure 82 mm[Hg] DO Charly Ball Work Phone: [facility] 02-24-2024 08:22-0400 Heart rate 67 /min DO Charly Ball Work Phone: [facility] 02-24-2024 08:22-0400 Respiratory rate 16 /min DO Charly Ball Work Phone: [facility] 02-24-2024 08:22-0400 SaO2% (BldA) [Mass fraction] 99 % DO Charly Ball Work Phone: [facility] 02-24-2024 08:22-0400 Systolic blood pressure 129 mm[Hg] DO Charly Ball Work Phone: [facility] 02-18-2024 15:50-0400 Body height 177.8 cm DO Charly Ball Work Phone: [facility] 02-18-2024 08:39-0400 Body temperature 97.7 [degF] DO Charly Ball Work Phone: [facility] 02-18-2024 08:39-0400 Body weight 104.91 kg DO Charly Ball Work Phone: [facility] 02-18-2024 08:39-0400 Diastolic blood pressure 57 mm[Hg] DO Charly Ball Work Phone: [facility] 02-18-2024 08:39-0400 Heart rate 61 /min DO Charly Ball Work Phone: [facility] 02-18-2024 08:39-0400 Respiratory rate 18 /min DO Charly Ball Work Phone: [facility] 02-18-2024 08:39-0400 SaO2% (BldA) [Mass fraction] 98 % DO Charly Ball Work Phone: [facility] 02-18-2024 08:39-0400 Systolic blood pressure 91 mm[Hg] DO Charly Ball Work Phone: [facility] 02-17-2024 08:48-0400 Body temperature 98 [degF] DO Charly Ball Work Phone: [facility] 02-17-2024 08:48-0400 Body weight 104.77 kg DO Charly Ball Work Phone: [facility] 02-17-2024 08:48-0400 Diastolic blood pressure 87 mm[Hg] DO Charly Ball Work Phone: [facility] 02-17-2024 08:48-0400 Heart rate 65 /min DO Charly Ball Work Phone: [facility] 02-17-2024 08:48-0400 Respiratory rate 18 /min DO Charly Ball Work Phone: [facility] 02-17-2024 08:48-0400 SaO2% (BldA) [Mass fraction] 97 % DO Charly Ball Work Phone: [facility] 02-17-2024 08:48-0400 Systolic blood pressure 133 mm[Hg] DO Charly Ball Work Phone: [facility] 02-10-2024 16:37-0400 Body height 177.8 cm DO Chalry Ball Work Phone: [facility] 02-10-2024 08:00-0400 Body temperature 97.3 [degF] DO Charly Ball Work Phone: [facility] 02-10-2024 08:00-0400 Body weight 108.13 kg DO Charly Ball Work Phone: [facility] 02-10-2024 08:00-0400 Diastolic blood pressure 71 mm[Hg] DO Charly Ball Work Phone: [facility] 02-10-2024 08:00-0400 Heart rate 64 /min DO Charly Ball Work Phone: [facility] 02-10-2024 08:00-0400 Respiratory rate 18 /min DO Charly Ball Work Phone: [facility] 02-10-2024 08:00-0400 SaO2% (BldA) [Mass fraction] 98 % DO Charly Ball Work Phone: [facility] 02-10-2024 08:00-0400 Systolic blood pressure 108 mm[Hg] DO Charly Ball Work Phone: [facility] 02-05-2024 16:49-0400 Body height 177.8 cm DO Charly Ball Work Phone: [facility] 02-03-2024 09:13-0400 Body weight 109.3 kg DO Charly Ball Work Phone: [facility] 02-03-2024 08:33-0400 Body temperature 98.2 [degF] DO Charly Ball Work Phone: [facility] 02-03-2024 08:33-0400 Body weight 109.31 kg DO Charly Ball Work Phone: [facility] 02-03-2024 08:33-0400 Diastolic blood pressure 76 mm[Hg] DO Charly Ball Work Phone: [facility] 02-03-2024 08:33-0400 Heart rate 63 /min DO Charly Ball Work Phone: [facility] 02-03-2024 08:33-0400 Respiratory rate 18 /min DO Charly Ball Work Phone: [facility] 02-03-2024 08:33-0400 SaO2% (BldA) [Mass fraction] 98 % DO Charly Ball Work Phone: [facility] 02-03-2024 08:33-0400 Systolic blood pressure 117 mm[Hg] DO Charly Ball Work Phone: [facility] 01-27-2024 15:50-0400 Body height 177.8 cm DO Charly Ball Work Phone: [facility] 01-27-2024 08:05-0400 Body temperature 98.5 [degF] DO Charly Ball Work Phone: [facility] 01-27-2024 08:05-0400 Body weight 112.3 kg DO Charly Ball Work Phone: [facility] 01-27-2024 08:05-0400 Diastolic blood pressure 80 mm[Hg] DO Charly Ball Work Phone: [facility] 01-27-2024 08:05-0400 Heart rate 66 /min DO Charly Ball Work Phone: [facility] 01-27-2024 08:05-0400 Respiratory rate 20 /min DO Charly Ball Work Phone: [facility] 01-27-2024 08:05-0400 SaO2% (BldA) [Mass fraction] 94 % DO Charly Ball Work Phone: [facility] 01-27-2024 08:05-0400 Systolic blood pressure 128 mm[Hg] DO Charly Ball Work Phone: [facility] 01-20-2024 08:41-0400 Diastolic blood pressure 70 mm[Hg] DO Charly Ball Work Phone: [facility] 01-20-2024 08:41-0400 Heart rate 54 /min DO Charly Ball Work Phone: [facility] 01-20-2024 08:41-0400 Respiratory rate 16 /min DO Charly Ball Work Phone: [facility] 01-20-2024 08:41-0400 SaO2% (BldA) [Mass fraction] 95 % DO Chraly Ball Work Phone: [facility] 01-20-2024 08:41-0400 Systolic blood pressure 122 mm[Hg] DO Charly Ball Work Phone: [facility] 01-20-2024 08:11-0400 Inhaled oxygen flow rate 6 L/min DO Charly Ball Work Phone: [facility] 01-20-2024 06:29-0400 Body height 177.8 cm DO Charly Ball Work Phone: [facility] 01-20-2024 06:29-0400 Body mass index (BMI) [Ratio] 35.9 kg/m2 DO Charly Ball Work Phone: [facility] 01-20-2024 06:29-0400 Body weight 113.39 kg DO Charly Ball Work Phone: [facility] 01-20-2024 05:52-0400 Body temperature 98.5 [degF] DO Charly Ball Work Phone: [facility] 01-12-2024 14:28-0400 Body height 177.8 cm DO Charly Ball Work Phone: [facility] 01-12-2024 14:28-0400 Body mass index (BMI) [Ratio] 34.9 kg/m2 DO Charly Ball Work Phone: [facility] 01-12-2024 14:28-0400 Body weight 110.67 kg DO Charly Ball Work Phone: [facility] 01-12-2024 14:28-0400 Diastolic blood pressure 80 mm[Hg] DO Charly Ball Work Phone: [facility] 01-12-2024 14:28-0400 Systolic blood pressure 126 mm[Hg] DO Charly Ball Work Phone: [facility] 01-07-2024 13:05-0400 Body height 177.8 cm DO Charly Ball Work Phone: [facility] 01-07-2024 13:05-0400 Body mass index (BMI) [Ratio] 35.9 kg/m2 DO Charly Ball Work Phone: [facility] 01-07-2024 13:05-0400 Body weight 113.39 kg DO Charly Ball Work Phone: [facility] 01-07-2024 13:05-0400 Diastolic blood pressure 87 mm[Hg] DO Charly Ball Work Phone: [facility] 01-07-2024 13:05-0400 Heart rate 69 /min DO Charly Ball Work Phone: [facility] 01-07-2024 13:05-0400 Respiratory rate 18 /min DO Charly Ball Work Phone: [facility] 01-07-2024 13:05-0400 SaO2% (BldA) [Mass fraction] 97 % DO Charly Ball Work Phone: [facility] 01-07-2024 13:05-0400 Systolic blood pressure 149 mm[Hg] DO Charly Ball Work Phone: [facility] 12-25-2023 12:15-0400 Diastolic blood pressure 91 mm[Hg] DO Charly Ball Work Phone: [facility] 12-25-2023 12:15-0400 Heart rate 57 /min DO Charly Ball Work Phone: [facility] 12-25-2023 12:15-0400 Respiratory rate 16 /min DO Charly Ball Work Phone: [facility] 12-25-2023 12:15-0400 SaO2% (BldA) [Mass fraction] 94 % DO Charly Ball Work Phone: [facility] 12-25-2023 12:15-0400 Systolic blood pressure 150 mm[Hg] DO Chalry Ball Work Phone: [facility] 12-25-2023 11:35-0400 Body temperature 97 [degF] DO Charly Ball Work Phone: [facility] 12-25-2023 11:12-0400 Inhaled oxygen flow rate 8 L/min DO Charly Ball Work Phone: [facility] 12-25-2023 10:12-0400 Body height 176.53 cm DO Charly Ball Work Phone: [facility] 12-25-2023 10:12-0400 Body mass index (BMI) [Ratio] 37.2 kg/m2 DO Charly Ball Work Phone: [facility] 12-25-2023 10:12-0400 Body weight 116 kg DO Charly Ball Work Phone: [facility] 11-13-2023 08:05-0400 Body height 180.34 cm [facility] 11-13-2023 08:05-0400 Body mass index (BMI) [Ratio] 35.1 kg/m2 [facility] 11-13-2023 08:05-0400 Body weight 114.3 kg [facility] 11-13-2023 08:05-0400 Diastolic blood pressure 80 mm[Hg] [facility] 11-13-2023 08:05-0400 Heart rate 71 /min [facility] 11-13-2023 08:05-0400 SaO2% (BldA) [Mass fraction] 98 % [facility] 11-13-2023 08:05-0400 Systolic blood pressure 132 mm[Hg] [facility] 08-18-2023 10:31-0500 Blood Pressure Location Abner MONIQUE [facility] 08-18-2023 10:31-0500 Diastolic blood pressure 86 mm[Hg] Abner MONIQUE [facility] 08-18-2023 10:31-0500 Heart rate 84 /min Abner MONIQUE [facility] 08-18-2023 10:31-0500 Respiratory rate 16 /min Abner MONIQUE [facility] 08-18-2023 10:31-0500 Systolic blood pressure 132 mm[Hg] Abner MONIQUE [facility] 08-09-2022 09:21-0500 Blood Pressure Location Abner MONIQUE [facility] 08-09-2022 09:21-0500 Diastolic blood pressure 83 mm[Hg] Abner MONIQUE [facility] 08-09-2022 09:21-0500 Heart rate 70 /min Abner MONIQUE [facility] 08-09-2022 09:21-0500 Respiratory rate 16 /min Abner MONIQUE [facility] 08-09-2022 09:21-0500 Systolic blood pressure 129 mm[Hg] Abner MONIQUE [facility] Encounters Encounter Date Encounter Type Care Provider Facility Start: 10-24-2025 [facility] Start: 10-19-2025 ambulatory Thalia Valles Facility:[facility] Start: 04-15-2025 End: 04-15-2025 ambulatory Abner MONIQUE Facility:[facility] Start: 04-15-2025 End: 04-15-2025 Patient encounter procedure Abner MONIQUE [facility] Start: 03-09-2025 End: 03-09-2025 Nahum Loya DO Work Phone: [facility] Start: 03-09-2025 End: 03-09-2025 Nahum Loya DO Work Phone: [facility] Start: 03-09-2025 End: 03-09-2025 Office outpatient visit 25 minutes Jr. Billie Loya DO Work Phone: [facility] Comment on above: Acute pain of left k nee; Arthritis of left knee Start: 03-09-2025 End: 03-09-2025 ambulatory BILLIE [facility]Z [facility] Not Available Start: 01-25-2025 End: 01-25-2025 Bamboo flowsheet Charly Morfinmercedes DO Work Phone: [facility] Start: 01-25-2025 End: 01-25-2025 Bamboo flowsheet Charly Morfinmercedes DO Work Phone: [facility] Start: 01-25-2025 End: 01-25-2025 ambulatory CHARLY NOWAK Not Available Start: 01-25-2025 End: 01-25-2025 Office outpatient visit 25 minutes Charly Cuca Morfinmercedes DO Work Phone: [facility] Comment on above: Malignant neoplasm o f oropharynx (HCC) (Primary Dx); History of head and neck radiation Start: 11-30-2024 End: 11-30-2024 ambulatory [facility] Start: 11-16-2024 End: 11-16-2024 Bamboo flowsheet Artie Tillman PA Work Phone: [facility] Start: 11-16-2024 End: 11-16-2024 Bamboo flowsheet Artie Tillman PA Work Phone: [facility] Start: 11-16-2024 End: 11-16-2024 Office outpatient visit 15 minutes Artie Tillman PA Work Phone: [facility] Comment on above: Acute pain of left k nee (Primary Dx); Arthritis of left knee Start: 11-16-2024 End: 11-16-2024 ambulatory ARTIE TILLMAN Not Available Start: 11-08-2024 Registered Recurring Charly Hooper [facility] Work [facility]: Start: 11-08-2024 End: 11-08-2024 ambulatory Marbella Muñoz Facility:[facility] Start: 11-08-2024 End: 11-08-2024 Patient encounter procedure Charly Hooper DO [facility]: Start: 10-25-2024 End: 10-25-2024 Office outpatient visit 15 minutes Charly Nowak DO Work Phone: [facility] Comment on above: Malignant neoplasm o f oropharynx (Primary Dx); Neck fullness Start: 10-25-2024 End: 10-25-2024 ambulatory CHARLY NOWAK Not Available Start: 10-25-2024 End: 10-25-2024 Bamboo flowsheet Charly Nowak DO Work Phone: [facility] Start: 10-25-2024 End: 10-25-2024 Bamboo flowsheet Charly Nowak DO Work Phone: [facility] Start: 10-20-2024 End: 10-20-2024 ambulatory CHARLY NOWAK Not Available Start: 10-11-2024 End: 10-11-2024 Bamboo flowsheet Charly Nowak DO Work Phone: [facility] Start: 10-11-2024 End: 10-11-2024 Bamboo flowsheet Charly Nowak DO Work Phone: [facility] Start: 10-11-2024 End: 10-11-2024 Office outpatient visit 25 minutes Charly Nowak DO Work Phone: [facility] Comment on above: Malignant neoplasm o f oropharynx (CMS/HCC) (Primary Dx); 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); Neck mass; History of head and neck radiation Start: 10-11-2024 End: 10-11-2024 ambulatory CHARLY NOWAK Not Available Start: 10-11-2024 End: 10-11-2024 ambulatory Abner Mojica KAYDEN Facility:[facility] Start: 08-30-2024 End: 08-30-2024 Bamboo flowsheet Charly Nowak DO Work Phone: [facility] Start: 08-30-2024 End: 08-30-2024 Bamboo flowsheet Charly Nowak DO Work Phone: [facility] Start: 08-30-2024 End: 08-30-2024 Office outpatient visit 25 minutes Charly Nowak DO Work Phone: [facility] Comment on above: Malignant neoplasm o f oropharynx (CMS/HCC) (Primary Dx); 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 Work Phone: Start: 08-05-2024 End: 08-05-2024 Postop follow up visit related to original px Nohemi Vizcaino DO Work Phone: [facility] Comment on above: Cancer of tonsil (CM S/HCC) (Primary Dx); Venous insufficiency Start: 08-05-2024 End: 08-05-2024 ambulatory NOHEMI H ITFRANCES Not Available Start: 08-02-2024 End: 08-02-2024 Bamboo flowsheet Nadja Escamilla MEDICAL ASSISTING INSTRUCTOR Work Phone: [facility] Start: 08-02-2024 End: 08-02-2024 Bamboo flowsheet Nadja Escamilla MEDICAL ASSISTING INSTRUCTOR Work Phone: [facility] Start: 08-02-2024 End: 08-02-2024 Office outpatient visit 25 minutes Nadja Griffiths Francine MEDICAL ASSISTING INSTRUCTOR Work Phone: [facility] Comment on above: Left knee pain, unsp ecified chronicity (Primary Dx); Arthritis of left knee Start: 08-02-2024 End: 08-02-2024 ambulatory NADJA Griffiths FRANCINE Not Available Start: 07-30-2024 End: 07-30-2024 Admission to same day surgery center Charly Ball DO Work Phone: [facility] Start: 07-30-2024 End: 07-30-2024 ambulatory Charly Ball DO Work Phone: [facility] Work Phone: Start: 07-19-2024 End: 07-19-2024 Office outpatient visit 25 minutes Nohemi Vizcaino DO Work Phone: 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); History of head and neck radiation Start: 07-19-2024 End: 07-19-2024 ambulatory NOHEMI Espinosa ITFRANCES Not Available Start: 07-19-2024 Non-patient / Non-visit Leobardo in Ball DO Work Phone: [facility] Work Phone: Start: 07-05-2024 Registered Recurring Charly Hooper DO Work Phone: [facility] Work Phone: Start: 07-05-2024 End: 07-05-2024 Patient encounter procedure Charly Ball DO Work Phone: [facility] Work Phone: Start: 06-10-2024 End: 06-10-2024 ambulatory [facility] Work Phone: Start: 06-10-2024 End: 06-10-2024 Patient encounter procedure [facility] Work Phone: Start: 06-01-2024 End: 06-01-2024 Bamboo flowsheet Charly Nowak DO Work Phone: [facility] Start: 06-01-2024 End: 06-01-2024 Bamboo flowsheet Charly Nowak DO Work Phone: [facility] Start: 06-01-2024 End: 06-01-2024 Office outpatient visit 25 minutes Charly Nowak DO Work Phone: [facility] Comment on above: Lesion of tongue (Pr imary Dx); Malignant neoplasm of oropharynx (CMS/HCC); History of head and neck radiation Start: 06-01-2024 End: 06-01-2024 ambulatory CHARLY NOWAK Not Available Start: 05-10-2024 End: 05-10-2024 Bamboo flowsheet Charly Nowak DO Work Phone: [facility] Start: 05-10-2024 End: 05-10-2024 Bamboo flowsheet Charly Nowak DO Work Phone: [facility] [place] Start: 05-10-2024 End: 05-10-2024 Office outpatient visit 25 minutes Charly Nowak DO Work Phone: [facility] Comment on above: Lesion of tongue (Pr imary Dx); Malignant neoplasm of oropharynx (CMS/HCC); History of head and neck radiation Start: 05-10-2024 End: 05-10-2024 ambulatory CHARLY NOWAK Not Available Start: 04-08-2024 Registered Recurring DO Leobardo in Ball Work Phone: [facility] Work Phone: Start: 04-08-2024 End: 04-08-2024 ambulatory DO Charly Ball Work Phone: [facility] Work Phone: Start: 04-08-2024 End: 04-08-2024 Patient encounter procedure DO Charly Hooper Work Phone: [facility] Work Phone: Start: 03-30-2024 End: 03-30-2024 Bamboo flowsheet Charly Nowak DO Work Phone: [facility] Start: 03-30-2024 End: 03-30-2024 Bamboo flowsheet Charly Nowak DO Work Phone: [facility] [place] Start: 03-30-2024 End: 03-30-2024 Office outpatient visit 25 minutes Charly Nowak DO Work Phone: [facility] [place] Comment on above: Malignant neoplasm o f oropharynx (CMS/HCC) (Primary Dx); 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); History of head and neck radiation Start: 03-30-2024 End: 03-30-2024 ambulatory CHARLY NOWAK Not Available Start: 03-18-2024 End: 03-18-2024 ambulatory DO Charly Hooper Work Phone: [facility] Work Phone: Start: 03-18-2024 End: 03-18-2024 Patient encounter procedure DO Charly Hooper Work Phone: [facility] Work Phone: Start: 03-18-2024 Registered Recurring DO Leobardo in Ball Work Phone: [facility] Work Phone: Start: 03-09-2024 Non-patient / Non-visit DO Riaz foy Ball Work Phone: [facility] Work Phone: Start: 03-09-2024 Non-patient / Non-visit DO Riaz foy Ball Work Phone: [facility] Work Phone: Start: 03-08-2024 Non-patient / Non-visit DO Riaz foy Ball Work Phone: [facility] Work Phone: Start: 03-08-2024 End: 03-08-2024 Patient encounter procedure DO Charly Ball Work Phone: [facility] Start: 03-08-2024 End: 03-08-2024 ambulatory DO Charly Ball Work Phone: [facility] Work Phone: Start: 03-05-2024 Registered Recurring DO Benjam in Ball Work Phone: [facility] Work Phone: Start: 03-03-2024 Non-patient / Non-visit DO Riaz Hooper Work Phone: [facility] Work Phone: Start: 03-01-2024 Registered Recurring DO Benjam in Ball Work Phone: [facility] Work Phone: Start: 03-01-2024 Non-patient / Non-visit DO Riaz Hooper Work Phone: [facility] Work Phone: Start: 03-01-2024 End: 03-01-2024 Patient encounter procedure DO Charly Ball Work Phone: [facility] Start: 03-01-2024 End: 03-01-2024 ambulatory DO Charly Ball Work Phone: [facility] Work Phone: Start: 02-25-2024 End: 02-25-2024 ambulatory DO Charly Ball Work Phone: [facility] Work Phone: Start: 02-25-2024 End: 02-25-2024 Patient encounter procedure DO Charly Ball Work Phone: [facility] Work Phone: Start: 02-25-2024 Registered Recurring DO Benjam in Ball Work Phone: [facility] Work Phone: Start: 02-25-2024 Non-patient / Non-visit DO Riaz auin Ball Work Phone: [facility] Work Phone: Start: 02-24-2024 ambulatory Marbella Dennisi lity:[facility] Start: 02-24-2024 Registered Recurring DO Benjam in Ball [facility] Phone: [facility] [place] Start: 02-23-2024 Non-patient / Non-visit DO Riaz auin Ball Work Phone: [facility] Work Phone: Start: 02-23-2024 Registered Recurring DO Benjam in Ball Work Phone: [facility] Work Phone: Start: 02-23-2024 Non-patient / Non-visit DO Riaz foy Ball Work Phone: [facility] Work Phone: Start: 02-23-2024 End: 02-23-2024 Patient encounter procedure DO Charly Ball Work Phone: [facility] Start: 02-23-2024 End: 02-23-2024 ambulatory DO Charly Ball Work Phone: [facility] Work Phone: Start: 02-18-2024 Non-patient / Non-visit DO Riaz foy Ball Work Phone: [facility] Work Phone: Start: 02-17-2024 End: 02-17-2024 ambulatory DO Charly Ball Work Phone: [facility] Work Phone: Start: 02-17-2024 End: 02-17-2024 Patient encounter procedure DO Charly Ball Work Phone: [facility] Work Phone: Start: 02-17-2024 Registered Recurring DO Benjam in Ball Work Phone: [facility] Work Phone: Start: 02-16-2024 Registered Recurring DO Benjam in Ball Work Phone: [facility] Work Phone: Start: 02-16-2024 Non-patient / Non-visit DO Riaz foy Ball Work Phone: [facility] Work Phone: Start: 02-16-2024 Non-patient / Non-visit DO Riaz foy Ball Work Phone: [facility] Work Phone: Start: 02-16-2024 End: 02-16-2024 Patient encounter procedure DO Charly Hooper Work Phone: [facility] Start: 02-16-2024 End: 02-16-2024 ambulatory DO Charly Ball Work Phone: [facility] Work Phone: Start: 02-11-2024 Non-patient / Non-visit DO Riaz foy Ball Work Phone: [facility] Work Phone: Start: 02-10-2024 Registered Recurring DO Benjam in Ball [facility] Start: 02-09-2024 Registered Recurring DO Benjam in Ball Work Phone: [facility] Work Phone: Start: 02-09-2024 Non-patient / Non-visit DO Riaz foy Ball Work Phone: [facility] Work Phone: Start: 02-09-2024 End: 02-09-2024 Patient encounter procedure DO Charly Hooper Work Phone: [facility] Start: 02-09-2024 End: 02-09-2024 ambulatory DO Charly Hooper Work Phone: [facility] Work Phone: Start: 02-04-2024 Non-patient / Non-visit DO Riaz foy Ball Work Phone: [facility] Work Phone: Start: 02-03-2024 Registered Recurring DO Benjam in Ball [facility]: [facility] Start: 02-03-2024 Registered Recurring DO Benjam in Ball Work Phone: [facility] Work Phone: Start: 02-03-2024 End: 02-03-2024 ambulatory DO Charly Hooper Work Phone: [facility] Work Phone: Start: 02-03-2024 End: 02-03-2024 Patient encounter procedure DO Charly Hooper Work Phone: [facility] Work Phone: Start: 02-02-2024 Registered Recurring DO Benjam in Ball Work Phone: [facility] Work Phone: Start: 02-02-2024 Non-patient / Non-visit DO Riaz foy Ball Work Phone: [facility] Work Phone: Start: 02-02-2024 Non-patient / Non-visit DO Riaz danii Ball Work Phone: [facility] Work Phone: Start: 02-02-2024 End: 02-02-2024 Patient encounter procedure DO Charly Ball Work Phone: [facility] Start: 02-02-2024 End: 02-02-2024 ambulatory DO Charly Ball Work Phone: [facility] Work Phone: Start: 01-28-2024 Non-patient / Non-visit DO Riaz danii Ball Work Phone: [facility] Work Phone: Start: 01-27-2024 Non-patient / Non-visit DO Riaz danii Ball Work Phone: [facility] Work Phone: Start: 01-27-2024 Non-patient / Non-visit DO Riaz danii Ball Work Phone: [facility] Work Phone: Start: 01-27-2024 End: 01-27-2024 Patient encounter procedure DO Charly Ball Work Phone: [facility] Start: 01-27-2024 End: 01-27-2024 ambulatory DO Charly Ball Work Phone: [facility] Work Phone: Start: 01-27-2024 Registered Recurring DO Benjam in Ball Work Phone: [facility] Work Phone: Start: 01-21-2024 Non-patient / Non-visit DO Riaz danii Ball Work Phone: [facility] Work Phone: Start: 01-20-2024 End: 01-20-2024 Admission to same day surgery center DO Charly Ball [facility] Start: 01-20-2024 End: 01-20-2024 ambulatory DO Charly Ball Work Phone: [facility] Work Phone: Start: 01-14-2024 Registered Recurring DO Benjam in Ball Work Phone: [facility] Work Phone: Start: 01-13-2024 Non-patient / Non-visit DO Riaz foy Ball Work Phone: [facility] Work Phone: Start: 01-12-2024 End: 01-12-2024 ambulatory DO Charly Ball Work Phone: [facility] Work Phone: Start: 01-12-2024 End: 01-12-2024 Patient encounter procedure DO Charly Ball Work Phone: [facility] Work Phone: Start: 01-07-2024 End: 01-07-2024 ambulatory DO Charly Ball Work Phone: [facility] Work Phone: Start: 01-07-2024 End: 01-07-2024 Patient encounter procedure DO Charly Ball Work Phone: [facility] Work Phone: Start: 01-07-2024 Registered Recurring DO Benjam in Ball Work Phone: [facility] Work Phone: Start: 12-25-2023 End: 12-25-2023 Admission to same day surgery center DO Charly Ball [facility] Start: 12-25-2023 End: 12-25-2023 ambulatory DO Charly Ball Work Phone: [facility] Work Phone: Start: 12-24-2023 End: 12-24-2023 Patient encounter procedure DO Charly Ball Work Phone: [facility] Work Phone: Start: 12-24-2023 End: 12-24-2023 ambulatory DO Charly Ball Work Phone: [facility] Work Phone: Start: 12-23-2023 End: 12-23-2023 Patient encounter procedure DO Charly Ball Work Phone: [facility] Work Phone: Start: 12-23-2023 End: 12-23-2023 ambulatory DO Charly Ball Work Phone: [facility] Work Phone: Start: 12-23-2023 Encounter for preprocedural laboratory examination Charly Allen [facility] Start: 11-13-2023 End: 11-13-2023 ambulatory [facility] Work Phone: Start: 11-13-2023 End: 11-13-2023 Patient encounter procedure [facility] Work Phone: Start: 08-18-2023 End: 08-18-2023 Patient encounter procedure Abner MONIQUE [facility] Start: 08-09-2022 End: 08-09-2022 Patient encounter procedure Abner MONIQUE [facility] Start: 07-16-2022 End: 07-17-[address] ABNER MONIQUE Facility:[facility] Start: 05-08-2022 End: 05-09-2022 ambulatory STELLA CHERRY Facility:[facility] Start: 03-20-2022 End: 03-21-2022 ambulatory CHARLY HOOPER Facility:[facility] Start: 2022 Encounter for preprocedural laboratory examination THEO VIRGEN [facility] Start: 03-18-2022 End: [address] CHARLY HOOPER Facility:[facility] Start: 03-18-2022 End: 2022 Encounter for preprocedural laboratory examination DR CHARLY HOOPER Facility:[facility] Start: 03-05-2022 End: 03-06-2022 ambulatory CHARLY HOOPER Facility:[facility] Start: 12-27-2021 End: 12-28-[address] CHARLY HOOPER Facility:[facility] Start: 08-14-2021 End: 08-15-[address] CHARLY HOOPER Facility:[facility] Procedures Date Procedure Procedure Detail Performing Clinician Start: 03-09-2025 Arthrocentesis aspir &/inj major jt/bursa w/o us Jr. Billie Loya DO Work Phone: Start: 11-16-2024 Radiologic examinati on knee 1/2 views Artie HARRIS Work Phone: Start: 08-25-2024 Quick Strep (POC) Manav erik Hooper DO Work Phone: Start: 08-02-2024 Arthrocentesis aspir &/inj major jt/bursa w/o us Nadja Escamilla MEDICAL ASSISTING INSTRUCTOR Work Phone: Start: 07-30-2024 OR Infusaport Insertion/Removal (Not Applicable) Charly Hooper DO Work Phone: Start: 06-30-2024 Positron emission to mography with computed tomography Charly Ball DO Work Phone: Start: 01-20-2024 Plain chest X-ray DO Be njamin Ball Work Phone: Start: 01-20-2024 OR Infusaport Insertion/Removal (Not Applicable) DO Charly Hooper Work Phone: Start: 12-25-2023 Direct laryngoscopy with biopsy DO Charly Hooper Work Phone: Start: 12-24-2023 Positron emission to mography with computed tomography DO Charly Hooper Work Phone: Start: 07-21-2023 Radiation therapy care Abner MONIQUE Start: 07-16-[address] INOCENCIO MONIQUE Comment on above: Performed By: #### P SAD #### [facility] [address] [address] [address] Edilson Iyer Start: 09-09-2019 Implantation of radi oactive seed into prostate Abner MONIQUE Start: 07-20-2019 Transrectal biopsy o f prostate using ultrasound guidance Abner MONIQUE Start: 08-11-2018 Transrectal biopsy o f prostate using ultrasound guidance Abner KAYDEN Cardiac ablation usi ng fluoroscopy guidance Abner MONIQUE Cholecystectomy Abner DENTON Decompression of med danyel nerve Abner MONIQUE History of hernia repair Maria Elena MONIQUE Vasectomy Abner MONIQUE Plan of Treatment Date Care Activity Detail Author Start: 06-15-2025 End: 06-15-2025 Patient encounter procedure 06/15/2025 8:00 AM EST Office Visit [facility] [address] [place] [phone] Jr. Billie Loya, DO [address] [place], [place] [id number] [facility] Start: 05-17-2025 End: 05-17-2025 Patient encounter procedure [facility] Start: 03-21-2025 Influenza vaccination [facility] Start: 03-09-2025 End: 03-09-2025 Patient encounter procedure MIMI CAMILO Comment on above: Arrived Start: 01-25-2025 End: 01-25-2025 Patient encounter procedure 01/25/2025 8:15 AM EDT Office Visit [facility] [address] [place] [address] Charly Nowak W, DO [address] [place] [address] [facility] Start: 11-16-2024 End: 11-16-2024 Patient encounter procedure 11/16/2024 11:15 AM EDT Office Visit [facility] [address] [place] [phone] Artie Tillman PA [address] [place] [address] Acute pain of left knee (Primary Dx); Arthritis of left knee [facility] Comment on above: Acute pain of left k nee (Primary Dx); Arthritis of left knee Start: 10-25-2024 End: 10-25-2024 Patient encounter procedure [facility] Comment on above: Arrived Start: 10-11-2024 End: 10-11-2024 Patient encounter procedure [facility] Comment on above: Arrived Start: 08-30-2024 End: 08-30-2024 Patient encounter procedure [facility] Comment on above: Arrived Start: 08-05-2024 End: 08-05-2024 Patient encounter procedure 08/05/2024 9:15 AM EST [facility] [address] [facility] [address] [place] [phone] Nohemi Vizcaino H, DO [address] [facility] [address] [place] [address] [address] [facility] Start: 08-02-2024 End: 08-02-2024 Patient encounter procedure 08/02/2024 11:15 AM EST Office Visit [facility] [address] [place] [phone] Nadja Escamilla, MEDICAL ASSISTING INSTRUCTOR [address] [place] [address] Left knee pain, unspecified chronicity (Primary Dx); Arthritis of left knee [facility] Comment on above: Left knee pain, unsp ecified chronicity (Primary Dx); Arthritis of left knee Start: 07-30-2024 [facility] Start: 07-19-2024 End: 07-19-2024 Patient encounter procedure 07/19/2024 1:30 PM EST Office Visit [facility] [address] [place] [phone] Charly Nowak, DO [address] [place] [address] [facility] Start: 06-10-2024 Patient referral [facility] Work Phone: Start: 06-01-2024 End: 06-01-2024 Patient encounter procedure 06/01/2024 8:45 AM EST Office Visit [facility] [address] [place] [address] Charly Nowak, DO [address] [place] [address] [facility] Start: 05-10-2024 End: 05-10-2024 Patient encounter procedure [facility] Comment on above: Arrived Start: 03-30-2024 End: 03-30-2024 Patient encounter procedure 03/30/2024 9:15 AM EDT Office Visit [facility] [address] [place] [phone] Charly Nowak, DO [address] [place] [address] Arrived [facility] Comment on above: Arrived Start: 03-21-2024 Influenza vaccination Influenza Vacc ine (#1) [facility] Start: 03-02-2024 Patient referral to dietitian [facility] Start: 03-02-2024 [facility] Start: 02-25-2024 [facility] Start: 02-24-2024 [facility] Start: 02-19-2024 [facility] Start: 02-17-2024 Comprehensive metabo lic 1999 panel - Serum or Plasma [facility] Start: 02-17-2024 End: 02-18-2024 [facility] Start: 02-16-2024 [facility] Start: 02-10-2024 [facility] Start: 02-03-2024 [facility] Start: 01-27-2024 [facility] Start: 01-20-2024 [facility] Start: 01-20-2024 [facility] Start: 01-07-2024 Patient referral [facility] Work Phone: Start: 12-25-2023 [facility] Start: 12-25-2023 [facility] Start: 1965 Screening for malign ant neoplasm of colon [facility] Albumin/Globulin ratio [facility] Anion gap measurement [facility] Basophils [#/volume] in Blood by Automated count [facility] Basophils/100 leukocytes in Blood by Automated count [facility] Comprehensive metabo lic 1999 panel - Serum or Plasma [facility] Comprehensive metabo lic 1999 panel - Serum or Plasma [facility] Comprehensive metabo lic 1999 panel - Serum or Plasma [facility] Comprehensive metabo lic 1999 panel - Serum or Plasma [facility] Comprehensive metabo lic 1999 panel - Serum or Plasma [facility] Comprehensive metabo lic 1999 panel - Serum or Plasma [facility] Computed tomography for radiotherapy planning [facility] Eosinophils/100 leukocytes in Blood by Automated count [facility] Erythrocyte distribution width [Ratio] by Automated count [facility] Erythrocytes [#/volu me] in Blood [facility] Globulin [Mass/volum e] in Serum [facility] Hematocrit [Volume Fraction] of Blood [facility] Hemoglobin [Mass/volume] in Blood [facility] Leukocytes [#/volume ] corrected for nucleated erythrocytes in Blood by Automated coun [facility] Leukocytes [#/volume ] in Blood [facility] Lymphocytes [#/volum e] in Blood by Automated count [facility] Lymphocytes/100 leukocytes in Blood by Automated count [facility] MCH [Entitic mass] b y Automated count [facility] MCHC [Mass/volume] b y Automated count [facility] MCV [Entitic volume] by Automated count [facility] Monocytes [#/volume] in Blood by Automated count [facility] Monocytes/100 leukocytes in Blood by Automated count [facility] Neutrophils [#/volum e] in Blood by Automated count [facility] Neutrophils/100 leukocytes in Blood by Automated count [facility] Nucleated erythrocyt es [Presence] in Blood by Automated count [facility] Patient Education [facility] Work Phone: Patient referral [facility] Work Phone: Platelet mean volume [Entitic volume] in Blood by Automated count [facility] Platelets [#/volume] in Blood [facility] US [facility] Thyroid gland [facility] Immunizations Immunization Date Immunization Notes Care Provider Renee hurt 04-04-2022 COVID-19 mRNA Bivale nt Booster (Pfizer) DO Charly Hooper Work Phone: [facility] 04-04-2022 Moderna Bivalent Booster Vaccination Charly Nowak DO Work Phone: [facility] 05-05-2021 COVID-19 mRNA, Comirnaty (Pfizer) DO Charly Hooper Work Phone: [facility] 11-03-2020 COVID-19, mRNA, LNP- S, PF, 30 mcg/0.[address] [facility] Comment on above: Reason for Medicatio n: Prophylaxis 09-22-2020 COVID-19, mRNA, LNP- S, PF, 30 mcg/0.[address] [facility] Comment on above: Reason for Medicatio n: Prophylaxis 07-04-2020 diphtheria, tetanus toxoids and acellular pertussis vaccine, unspecified formulation [facility] 07-04-2020 tetanus toxoid, redu devonte diphtheria toxoid, and acellular pertussis vaccine, adsorbed DO Charly Hooper Work Phone: [facility] 05-03-2020 influenza, seasonal, injectable DO Charly Hooper Work Phone: [facility] 05-03-2020 influenza virus vaccine, unspecified formulation Charly Nowak DO Work Phone: [facility] 04-20-2020 influenza, injectabl e, quadrivalent, preservative free DO Charly Hooper Work Phone: [facility] 04-20-2019 influenza virus vaccine, live, attenuated, for intranasal use Abner MONIQUE [facility] 04-29-2018 influenza virus vaccine, unspecified formulation [facility] Payers Date Payer Category Payer Self-pay 2022 Blue [employer] Blue Shield [id number] 2022 Unknown [id number] 2022 Unknown [id number] 2022 Private Health Insurance [id number] 2019 Unknown [id number] 1966 Unknown [id number] 2.16.840.1.921476.3.579.2.647 1966 Unknown [id number] 2.16.840.1.786787.3.579.2.647 1966 Unknown [id number] 2.16.840.1.812914.3.579.2.593 1966 Unknown [id number] 2.16.840.1.750150.3.579.2.593 1966 Unknown [id number] 2.16.840.1.293508.3.579.2.593 1966 Unknown [id number] 2.16.840.1.217292.3.579.2.593 1966 Unknown [id number] 2.16.840.1.494144.3.579.2.593 1966 Unknown [id number] 2.16.840.1.736619.3.579.2.1259 1966 Unknown [id number] 2.16.840.1.872207.3.579.2.125 1966 Unknown [id number] 2.16.840.1.980610.3.579.2.125 1966 Unknown [id number] 2.16.840.1.603390.3.579.2.125 1966 Unknown [id number] 2.16.840.1.737761.3.579.2.1259 1966 Unknown [id number] 2.16.840.1.962796.3.579.2.1259 1966 Unknown [id number] 2.16.840.1.442854.3.579.2.1259 1966 Unknown [id number] 2.16.840.1.233689.3.579.2.125 1966 Unknown [id number] 2.16.840.1.982703.3.579.2.125 1966 Unknown [id number] 2.16.840.1.407230.3.579.2.1259 1966 Unknown [id number] 2.16.840.1.023953.3.579.2.1259 1966 Unknown [id number] 2.16.840.1.008075.3.579.2.1258 1966 Unknown [id number] 2.16.840.1.411105.3.579.2.1258 1966 Unknown [id number] 2.16840.1.507634.3.579.2.1258 1966 Unknown [id number] 2.840.1.346131.3.579.2.1258 1966 Unknown [id number] 2.840.1.682168.3.579.2. 1966 Unknown [id number] 2.840.1.950599.3.579.2. 1966 Unknown [id number] 2.0.1.662512.3.579.2. 1966 Unknown [id number] 2.840.1.349632.3.579.2. 1966 Unknown [id number] 2.840.1.155752.3.579.2.727 1959 Unknown [id number] Unknown [employer] [id number] Unknown [employer]/BS [id number] Unknown [id number] 2.16840.1.729466.3.579.2.531 Unknown [id number] 2.16840.1.611885.3.579.2.531 Unknown [id number] 2.16840.1.220971.3.579.2.531 Unknown [id number] 2.16840.1.545836.3.579.2.531 Unknown [id number] 2.840.1.302867.3.579.2.531 Unknown [id number] 2.16.840.1.431037.3.579.2.531 Unknown [id number] 2.16.840.1.422416.3.579.2.531 Unknown [id number] 2.16.840.1.746834.3.579.2.531 Unknown [id number] 2.16.840.1.352322.3.579.2.531 Unknown [id number] 2.16.840.1.219656.3.579.2.531 Unknown [id number] 2.16.840.1.425485.3.579.2.531 Unknown [id number] 2.16.840.1.616514.3.579.2.531 Unknown [id number] 2.16.840.1.168300.3.579.2.531 Unknown [id number] 2.16.840.1.846522.3.579.2.531 Social History Date Type Detail Facility Start: 07-19-2020 End: 10-11-2024 Tobacco smoking status Ex-smoker (finding) [facility] Tobacco smoking status Never [facility] Start: 03-30-2024 End: 03-09-2025 Sex Assigned At Male [facility] Start: 11-13-2023 Tobacco smoking stat [facility] Never smoked tobacco (finding) [facility] Start: 1965 Sex Assigned At Male [facility] Start: 07-21-1987 End: 07-21-1992 History of tobacco use Current smoker [facility] Start: 07-21-1987 End: 07-21-1992 History of tobacco use Cigarette Smoker [facility] Start: 12-31-2023 End: 03-09-2025 Cigarettes smoked current (pack per day) - Reported 1 [facility] Start: 12-31-2023 Tobacco use and exposure Smoke less tobacco non-user [facility] Start: 03-30-2024 End: 03-09-2025 Alcoholic beverage intake Current drinker of alcohol (finding) [facility] Start: 01-11-2023 Alcohol Comment 5 or 6 drinks, 4 or more times a week [facility] Start: 1965 Sex assigned at Not on file [facility] Start: 11-01-2009 End: 06-10-2024 Sex Male (finding) [facility] Sexual Orientation [facility] Medical Equipment Procedure Code Equipment Code Equipment Origin al Text Equipment Identifier Dates Insertion of central venous catheter (CVC) with subcutaneous port for chemotherapy Vascular port/catheter ()[id number] FDA Start: 01-20-2024 Goals Date Patient Goal Desired Activity /State Functional Status Date Assessment Result Facility 08-18-2023 Functional Status N/A [facility] 08-09-2022 Functional Status N/A [facility] Clinical Notes 08-14-2021 to 03-09-2025 Jr. Billie Loya, DO - 03/09/2025 1:15 PM EDNarayan Nowak, DO - 01/25/2025 8:15 AM STEVEN Sanders - 11/16/2024 11:15 AM Nakita Nowak, - 10/25/2024 2:30 PM EDT Note Date & Type Note Facility 03-09-2025 History of Present illness Narrative Associated Order(s): L Inj/Asp: L knee Post-Procedure Diagnose(s): Acute pain of left knee; Arthritis of left knee Images from the original note were not included. HISTORY OF PRESENT ILLNESS: EST PT Alen Calderon is an 59 y.o. @ male. (EST PT) (LAST APPT W/ MAGDALENA) - RECHECK (L) KNEE S/P CORTISONE INJ 11/16/24 (3 MONTHS, 23 DAYS) - HERE FOR POSSIBLE REPEAT INJ / TO DISCUSS OPTIONS XRAY 11/16/24 IN EPIC XRAY EXA 05/04/20 NO MRI NO MDP / PREDNISONE DEPO INJECTION 11/16/24, 06/18/23, 10/18/23, 08/02/24 HX (L) KNEE SCOPE YRS AGO (DR. NGUYEN) S/P CORTISONE INJ - WITH GREAT RELIEF - WOULD LIKE ANOTHER INJ TODAY IF POSSIBLE. INTERMITTENT MEDIAL DISCOMFORT - WORSE WITH STAIRS. DENIES RADIATION. DENIES SWELLING. DENIES N/T. DENIES WEAKNESS / STIFFNESS. DENIES POPPING / GRINDING / BUCKLING. DENIES WAKING HS. DIFFICULTY WITH STAIRS. DENIES RECENT USE OF KNEE BRACE. INSTAFLEX JOINT SUPPLEMENT - WITH RELIEF. NO PAIN MEDS. TRIED VOLTAREN / OTHER TOPICAL - SOME RELIEF. 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 ALLERGIES: Allergies Allergen Reactions Oxycodone Itching HOME MEDICATIONS: Current Outpatient Medications Medication Instructions amiodarone (Pacerone) 200 MG tablet amLODIPine (Norvasc) 10 MG tablet apixaban (ELIQUIS) 5 mg, 2 times daily carvedilol (Coreg) 25 MG tablet Flaxseed, Linseed, (Flax Seed Oil) 1000 MG capsule furosemide (LASIX) 40 mg, Daily RT ibuprofen 600 mg, Every 6 hours PRN losartan (Cozaar) 100 MG tablet omega-3 (Fish Oil) 1000 MG capsule 1 capsule, Every 24 hours omeprazole (PriLOSEC) [address] capsule ondansetron ODT (ZOFRAN-ODT) 8 mg, Every 8 hours PRN tadalafil (CIALIS) 20 mg, Daily PRN traMADol (ULTRAM) 50 mg, Every 4 hours PRN traZODone (DESYREL) 50 mg, Nightly PRN PHYSICAL EXAM: Knee Musculoskeletal Exam Gait Limp: left Inspection Leg length disparity: no discrepancy Left Erythema: none Effusion: mild Edema: moderate Edema comment: +3 pitting edema to lower extremities Ecchymosis: none Deformity: none Alignment: varus Previous incision: arthroscopic portals Incision: well-healed Palpation Left Left knee palpation is unremarkable. Increased warmth: none Masses: none Crepitus: patellofemoral and medial Tenderness: present Medial joint line: moderate Patella: mild Palpation additional comments: No prominent pulsation popliteal fossa, but soft tissue prominence noted with location concerning for bakers cyst. No pain to calf. Range of Motion Left Left knee range of motion is normal and full. Active extension: 5 Passive extension: 0 Active flexion: 110 Passive flexion: 115 Strength Left Left knee strength is normal. Extension: 5/5. Extension is affected by pain. Flexion: 5/5. Flexion is affected by pain. Instability Left Instability signs: none - stable Anterior drawer: normal Neurovascular Left Left knee neurovascular exam is normal. Pulses - PT: normal Posterior tibial: 2+ Capillary refill: warm and well-perfused Special Signs Left Left knee special signs are normal. Patellar compression: mild Patellar apprehension: mild General Constitutional: appears stated age Labored breathing: no Psychiatric: normal mood and affect Neurological: alert Skin: intact Lymphadenopathy: none Vitals: There is no height or weight on file to calculate BMI. Tobacco Use: Medium Risk (03/09/2025) Patient History Smoking Tobacco Use: Former Smokeless Tobacco Use: Never Passive Exposure: Not on file Alcohol Use: Alcohol Misuse (08/17/2019) Received from [facility] AUDIT-C Frequency of Alcohol Consumption: Not on file Average Number of Drinks: Not on file Frequency of Binge Drinking: Daily or almost daily IMAGING: L Inj/Asp: L knee on 03/09/2025 1:25 PM Indications: pain Details: 21 G needle, anterolateral approach Medications: 40 mg methylPREDNISolone acetate 40 MG/ML Outcome: tolerated well, no immediate complications SKIN PREPPED/CLEANED WITH ISOPROPYL ALCOHOL Procedure, treatment alternatives, risks and benefits explained, specific risks discussed. Consent was given by the patient. Orders Placed This Encounter Procedures L Inj/Asp: L knee This order was created via procedure documentation ASSESSMENT: ICD-10-CM 1. Acute pain of left knee M25.562 L Inj/Asp: L knee 2. Arthritis of left knee M17.12 L Inj/Asp: L knee PLAN: We have discussed his x-rays, physical exam, and symptoms today at length. He refuses total knee arthroplasty. We have injected him under sterile technique today in the office with Depo-Medrol 40 mg after obtaining informed consent without incident into his left knee. We have recommended bilateral support stockings knee-high. We'll see him back on a when necessary basis at his request. Questions answered in laymen terms at the bedside. The diagnosis, home exercise plan and any ongoing restrictions/ recommendations reviewed. If unable to be reached in office, I recommend evaluation at nearest Emergency Room if any symptoms worsened or new symptoms develop for requiring urgent evaluation. documented in this encounter [facility] 01-25-2025 History of Present illness Narrative Subjective Patient ID: EARLE Presents today for cancer surveillance. 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 Continues to do well. Review of Systems ROS The specialty specific [...] Oropharynx: Thorough examination of the oral cavity including the tonsil fossa base of tongue etcetera shows nothing suggestive of either new or recurrent tumor. Neck: No evidence [...] for this visit: Malignant neoplasm of oropharynx (HCC) (Primary) Comments: There is no evidence of recurrent disease on today's exam, I will see him back in 3 months History of head and neck radiation documented in this encounter [facility] 11-30-2024 Note [facility] Consult Note Reason for visit: afib, s/p PVI with CTI 03/20/2022 11/30/24 Patient is here today for a 1.5 year follow up for A-Fib. Patient has completed chemo treatments for tonsill cancer. Patient state his doing will with his A-Fib since he started on the Amiodarone. Patient denies any cardiac issues at this time. Review of Systems Constitutional: Negative. HPI: Alen Calderon is a 59 y.o. year old with past medical history of Patient is here for 1 month follow-up regarding his A-fib. He has history of PVI ablation 03/20/2022 and was previously taking flecainide and is continue to have breakthrough episodes so A-fib ablation was pursued. Patent continues to take Eliquis 5 mg twice daily, [id number] 1 for hypertension. Patient's been taking amiodarone has been feeling well on amiodarone with no concern for side effects, but continues to complain of breakthrough episodes per his [employer] mobile. Patient began to take amiodarone around 04/04/2023 on his own as he had some supply at home. He started taking 200 mg daily on his own without loading dose and since then has noticed no episodes of A-fib. when in A-fib he has complaints of palpitations, racing heart, shortness of breath. When he i not in A-fib he denies any chest [...] (CCB vs venous insufficiency?) - Per dr. Virgen HPI 03/05/2022 cc; Afib [...] CARPAL TUNNEL RELEASE CHOLECYSTECTOMY CTA CHEST W IV CONTRAST 03/09/2022 CT CHEST ANGIOGRAM W AND/OR WO IV CONTRAST THAO CONVERSION HERNIA REPAIR PROSTATE SURGERY SH: Social Determinants of Health Tobacco Use: Medium Risk (11/30/2024) Patient History Smoking Tobacco Use: Former Smokeless Tobacco Use: Never Passive Exposure: Not on file Alcohol Use: Alcohol Misuse (08/17/2019) Received from [facility], [facility] AUDIT-C Frequency of Alcohol Consumption: Not on file Average Number of Drinks: Not on file Frequency of Binge Drinking: Daily or almost daily Financial Resource Strain: Not on file Food Insecurity: Not on file Transportation Needs: Not on file Physical Activity: Not on file Stress: Not on file Social Connections: Not on file Intimate Partner Violence: Unknown (09/11/2023) OR Safety & Environment Fear of Current or Ex-Partner: Not on file Emotionally Abused: Not on file Physically Abused: Not on file Sexually Abused: Not on file Physically or Sexually Abused: Not on file Depression: Not at risk (09/21/2019) Received from [facility], [facility] PHQ-2 PHQ-2 score: 0 Housing Stability: Not on file Utilities: Not on file Health Literacy: Not on file Allergies: Allergies Allergen Reactions Oxycodone Itching Oxycodone-Acetaminophen Weight: 108kg Visit Vitals BP 142/82 (BP Location: Left arm, Patient Position: Sitting) Pulse 62 Ht 1.778 m (5' (more content not included)... [facility] 11-16-2024 History of Present illness Narrative Images from the original note were not included. Orthopedic Office note: NAME: Alne Calderon : 1965 (SHEILA Thurman/ANAMARIA) LT KNEE PAIN, INTERMITTENT PAIN FOR A WHILE. NKI. XRAY TODAY EPIC 11/16/24 XRAY EXA 05/04/20 DEPO INJECTION 06/18/23, 10/18/23, 08/02/24 HX KNEE SCOPE YEARS AGO. WONDERING IF HE HAS A BARBA'S CYST POSTERIOR KNEE, ACHES. PAIN DIFFUSE IN KNEE. +MOTRIN OR TYL. +ICE AND HEAT PRN. +VOLTAREN PRN. DENIES N/T, SWELLING. OCCAS POPPING, GRINDING. DENIES GIVING OUT. DOES NOT WAKE AT HS. OCCAS WEARS KNEE BRACE, DOESN'T MAKE A DIFFERENCE. Physical Exam Knee Musculoskeletal Exam Gait Antalgic: left Limp: left Inspection Leg length disparity: no discrepancy Left Erythema: none Effusion: moderate Edema: none Ecchymosis: none Deformity: none Alignment: varus Previous incision: arthroscopic portals Incision: well-healed Palpation Left Left knee palpation is unremarkable. Increased warmth: none Masses: none Crepitus: patellofemoral and medial Tenderness: present Medial joint line: moderate Patella: mild Range of Motion Left Left knee range of motion is normal and full. Active extension: 5 Passive extension: 0 Active flexion: 110 Passive flexion: 115 Strength Left Left knee strength is normal. Extension: 5/5. Extension is affected by pain. Flexion: 5/5. Flexion is affected by pain. Instability Left Instability signs: none - stable Anterior drawer: normal Neurovascular Left Left knee neurovascular exam is normal. Pulses - PT: normal Posterior tibial: 2+ Capillary refill: warm and well-perfused Special Signs Left Left knee special signs are normal. Patellar compression: mild Patellar apprehension: mild General Constitutional: appears stated age Labored breathing: no Psychiatric: normal mood and affect Neurological: alert Skin: intact Lymphadenopathy: none Orders Placed This Encounter Procedures XR knee 1 or 2 views left Reason for exam:: pain Procedures Results - Imaging: - X-rays of the left knee show bone on bone articulation medial joint line ICD-10-CM 1. Acute pain of left knee M25.562 XR knee 1 or 2 views left 2. Arthritis of left knee M17.12 F/U Dr. Loya s/p IA injection to discuss need for possible: (L) Total knee replacement Surgical and non surgical tx options discussed with conservative measures reviewed. Recommend ICE/ ELEVATION, continued activity modification in interim. Pt would consider surgical intervention to possibly improve symptoms. Assessment & Plan Left knee arthritis. X-rays discussed at bedside with bone on bone articulation medial joint line. Patient admits symptoms are worse after working 12-hour shift, standing. He had good relief with the first injection until recent weeks. 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 An intra-articular injection is recommended and agreed upon. Treatment plan: An intra-articular injection is recommended and agreed upon. Follow-up: The patient will follow up in 4 months to reevaluate his progress. We discussed AAOS guidlines for initial treatment of symptomatic osteoarthritis: We have recommended Self-Management programs for strengthening, low-impact aerobic exercises, and physical activity maintenance and modifications to symptom tolerance. Questions answered in laymen terms at the bedside. The diagnosis, home exercise plan and any ongoing restrictions/ recommendations reviewed. If unable to be reached in office, I recommend evaluation at nearest Emergency Room if any symptoms worsened or new symptoms develop for requiring urgent evaluation. 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 documented in this encounter [facility] 11-08-2024 Progress note [facility] 10-25-2024 History of Present illness Narrative Subjective Patient ID: HPI Patient presents today following neck CT scan. I personally reviewed this. I concur, there is no evidence of pathologic process in the neck. I made him aware of that. Review of Systems ROS The specialty specific [...] normal Nares patent. Septal deviation to the No evidence of polyp, mass or pus bilaterally. Oral Cavity: No evidence of trismus Lips appear normal Dental Tongue of normal size and configuration, floor of mouth mucosa clear. Buccal mucosa shows no evidence of ulceration, mass or other abnormality Hard palate soft palate mucosa intact with no evidence of mass, ulceration or other abnormality Uvula of normal size and configuration Oropharynx: Tonsils Posterior pharyngeal wall Neck: No evidence of palpable abnormality Thyroid [...] for this visit: Malignant neoplasm of oropharynx (Primary) Comments: I will see the patient back in 3 months Alen was seen today for cancer. Diagnoses and all orders for this visit: Malignant neoplasm of oropharynx (Primary) Comments: I will see the patient back in 3 months Neck fullness Comments: No evidence of pathologic process on CT scan documented in this encounter [facility] 10-11-2024 History of Present illness Narrative Subjective Patient ID: HPI Patient presents today for cancer check. 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 He has been doing well. Review of Systems ROS The specialty specific [...] and configuration Oropharynx: Thorough examination of the oropharynx including mirror examination of the base of tongue and surrounding structures shows no mucosal lesions or anything suggestive of recurrent tumor. Neck: There is a palpable mass at level 2 in the right neck. This may be his carotid but it is not pulsatile. I do not remember this before. This was the side of the large metastasis that he head. Nothing on the left side. Thyroid without evidence of thyromegaly or mass. 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 The prostate gland is a walnut-sized gland that is located below the bladder and in front of the rectum in males. The function of the prostate is to add fluid to semen during ejaculation. Prostate cancer is one of the most common types of cancer in men. Who should have prostate cancer screening? Screening recommendations vary based on age and other risk factors, as well as between the professional organizations who make the recommendations. In general, screening is recommended if: ??? You are age 50 to 70 and have an average risk for prostate cancer. You should talk with your health care provider about your need for screening and how often screening should be done. Because most prostate cancers are slow growing and will not cause , screening in this age group is generally reserved for men who have a 10- to 15-year life expectancy. ??? You are younger than age 50, and you have these risk factors: ? Having a father, brother, or uncle who has been diagnosed with prostate cancer. The risk is higher if your family member's cancer occurred at an early age or if you have multiple family members with prostate cancer at an early age. ? Being a male who is Black or is of [place] or sub-Saharan descent. In general, screening is not recommended if: ??? You are younger than age 40. ??? You are between the ages of 40 and 49 and you have no risk factors. ??? You are 70 years of age or older. At this age, the risks that screening can cause are greater than the benefits that it may provide. If you are at high risk for prostate cancer, your health care provider may recommend that you have screenings more often or that you start screening at a younger age. How is screening for prostate cancer done? The recommended prostate cancer screening test is a blood test called the prostate-specific antigen (PSA) test. PSA is a protein that is made in the prostate. As you age, your prostate naturally produces more PSA. Abnormally high PSA levels may be caused by: ??? Prostate cancer. ??? An enlarged prostate that is not caused by cancer (benign prostatic hyperplasia, or BPH). This condition is very common in older men. ??? A prostate gland infection (prostatitis) or urinary tract infection. ??? Certain medicines such as male hormones (like testosterone) or other medicines that raise testosterone levels. A rectal exam may be done as part of prostate cancer screening to help provide information about the size of your prostate gland. When a rectal exam is performed, it should be done after the PSA level is drawn to avoid any effect on the results. Depending on the PSA results, you may need more tests, such as: ??? A physical exam to check the size of your prostate gland, if not done as part of screening. ??? Blood and imaging tests. ??? A procedure to remove tissue samples from your prostate gland for testing (biopsy). This is the only way to know for certain if you have prostate cancer. What are the benefits of prostate cancer screening? Screening can help to identify cancer at an early stage, before symptoms start and when the cancer can be treated more easily. ??? There is a small chance that screening may lower your risk of dying from prostate cancer. The chance is small because prostate cancer is a slow-growing cancer, and most men with prostate cancer from a different cause. What are the risks of prostate cancer screening? The main risk of prostate cancer screening is diagnosing and treating prostate cancer that would never have caused any symptoms or problems. This is called overdiagnosisand overtreatment. PSA screening cannot tell you if your PSA is high due to cancer or a different cause. A prostate biopsy is the only procedure to diagnose prostate cancer. Even the results of a biopsy may not tell you if your cancer needs to be treated. Slow-growing prostate cancer may not need any treatment other than monitoring, so diagnosing and treating it may cause unnecessary stress or other side effects. Questions to ask your health care provider ??? When should I start prostate cancer screening? What is my risk for prostate cancer? How often do I need screening? What type of screening tests do I need? How do I get my test results? What do my results mean? Do I need treatment? Where to find more information ??? The [place] [employer]: www.cancer.org ??? [employer]: www.auanet.org Contact a health care provider if: ??? You have difficulty urinating. ??? You have pain when you urinate or ejaculate. ??? You have blood in your urine or semen. ??? You have pain in your back or in the area of your prostate. Summary ??? Prostate cancer is a common type of cancer in men. The prostate gland (more content not included)... [facility] 08-30-2024 History of Present illness Narrative Subjective Patient ID: HPI Patient presents today for cancer surveillance. He is status post definitive chemoradiation P 16 positive right tonsil/base of tongue and neck metastases beginning in December of 2023. Continues to do well. Review of Systems ROS The specialty specific [...] and configuration Oropharynx: Thorough examination of the oropharynx, base of tongue and surrounding mucosal surfaces shows nothing suggestive of either new or recurrent tumor. Neck: No evidence of palpable abnormality Thyroid without evidence of thyromegaly or mass. No cervical lymphadenopathy present. Cardiovascular: Rate and Rhythm: Normal rate and regular rhythm. . Skin: General: Skin is warm and dry. Neurological: General: No focal deficit present. Mental Status: alert and oriented to person, place, and time. Assessment/Plan lAen was seen today for cancer. 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 Alen Calderon is a 59 y.o. male presents for 1st po port removal HPI: HPI Alen presents for a wound check following his port removal, he is doing well, no post-op issues OBJECTIVE: Physical Exam Right upper chest wall incision is healing well ASSESSMENT AND PLAN: Assessment/Plan Problem List Items Addressed This Visit Venous insufficiency Cancer of tonsil (CMS/HCC) - Primary Post-op from port removal. The area is healing well. I'll discharge him and see him PRN documented in this encounterColumbia Regional [id number] History of Present illness Narrative* Nadja Escamilla NP - 08/02/2024 11:15 AM ESTAssociated Order(s): L Inj/Asp: L knee Post-Procedure Diagnose(s): Arthritis of left knee Subjective Patient ID: Alen Calderon is a 59 y.o. male. LT Knee 10 months depo medrol injection was 10/18/23 with 85-90% improvement with improvement until the pastmonth, most noticeable on steps. Denies new injury Pain medial, denies radiation. Pain depends on what he is doing. Worse with steps. Taking TYL or motrin. Using voltaren prn. Denies N/T, swelling. Denies popping/grinding. Denies giving out. Does not wake at HS. Pain is 6/10 today. Notes he had a scope done years ago. TX: TYL/,motrin, voltaren gel, xrays AP 05/04/2020 noms, depo medrol injection 06/18/23, depo medrol injection 10/18/23 Was dx with Tonsil Cancer this past year, did radiation and chemo. Objective Ortho Exam Knee Musculoskeletal Exam Gait Limp: right Inspection Left Erythema: none Effusion: mild Edema: none Ecchymosis: none Inspection additional comments: +1 pitting edema in lower leg Palpation Left Crepitus: patellofemoral Tenderness: present Medial joint line: moderate Range of Motion Left Active extension: 0 Active flexion: 120 L Inj/Asp: L knee on 08/02/2024 11:34 AM Indications: pain Details: 20 G needle, anterolateral approach Medications: 40 mg methylPREDNISolone acetate 40 MG/ML UTILIZING ASEPTIC TECHNIQUE PT GIVEN INJECTION IN LEFT KNEE, NEUROVASC INTACT S/P INJ, TOLERATED WELL Procedure, treatment alternatives, risks and benefits explained, specific risks discussed. Consent was given by the patient. Assessment/Plan Encounter Diagnoses: ICD-10-CM 1. Left knee pain, unspecified chronicity M25.562 2. Arthritis of left knee M17.12 Discussion of options, pt notes he would like an injection, side effects of bleeding and infection discussed, would like to proceed with the injection, using aspectic technique 40 mg of depo medrol was injected into the left lateral knee, pt tolerated well, bandaid applied, may do activities as tolerated, f/u prn documented in this encounterColumbia Regional [id number] History of Present illness Narrative* Charly Nowak, DO - 07/19/2024 1:30 PM EST Subjective Patient ID: HPI Patient presents today for follow-up. He is status post definitive chemoradiation for P 16 positiveoropharyngeal cancer. He is doing well. Did have his PET scan done and he reports it was negative. Review of Systems ROS The specialty specific [...] normal size and configuration Oropharynx: Thorough examination oropharynx including mirror examination shows nothing suggestive of either newor recurrent tumor. 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) Comments: See above History of head and neck radiation Comments: See above documented in this encounterColumbia [facility] [id number] Evaluation note* Diagnosis Onset Date Resolution Status Admit Date Oropharyngeal cancer acute Nove 2023 11:28am Oropharyngeal cancer acute [facility] 2023 8:43am [facility] Work Phone: 1([phone]) 861-234711-21-2024 Evaluation note* Diagnosis Onset Date Resolution Status Admit Date Oropharyngeal cancer acute Nove 2023 11:28am Oropharyngeal cancer acute [facility] 2023 8:43am Acute pharyngitis acute Februar 2024 9:27am Nausea acute August 25, 2024 9:27am [facility] Work Phone: 1([phone]) 944-485411-12-2024 History of Present illness Narrative* Charly Nowak DO - 06/01/2024 8:45 AM EST Subjective Patient ID: HPI Patient presents today [...] see him before then. documented in this encounterColumbia Regional [id number] History of Present illness Narrative* Charly Nowak DO - 05/10/2024 1:45 PM EDT Subjective Patient ID: HPI Patient presents today [...] of the tongue posteriorly that is tender appearancereally not going to find lesion. More mucositis [...] this with some Kenalog. documented in this encounterColumbia Regional HospitalOzreriuvie01-54-0534 History of Present illness Narrative* Charly Nowak DO - 03/30/2024 9:15 AM EDT Subjective Patient ID: HPI Patient presents today [...] head and neck radiation documented in this encounterColumbia Regional HospitalTrfphmlowp53-79-4151 Evaluation note* Diagnosis Onset Date Resolution Status Admit Date Oropharyngeal cancer acute 2023 9:11am Oropharyngeal cancer acute Mar 9:30am Oropharyngeal cancer acute Sept emb2023 9:36am Oropharyngeal cancer acute Nove 2023 11:28am [facility] Work Phone: 1([phone]) 872-160408-19-2024 Progress note Author Mili Squires [facility] March 08, 2024 9:57am Note Date/Time March 08, 2024 9: 14am [facility] [address] [place] [address] Palliative Medicine Encounter Patient: Alen Calderon MR#: [id number] : 1965 Acct:[id number] Age/Sex: 58 / M Copies to: DO [...] 03/01/24 suspension Is patient having pain?: Yes [facility] Medical History 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 Chemotherapy/Radiation [...] Alcohol Substance Abuse Comment: 6-8 beers daily [place] Symptom Assessment Scale Pain: moderate mouth pain, [...] recorder, note dictated by Mili Squires APRN, MEDICAL ASSISTING INSTRUCTOR-C Dictated By: Mili Squires APRN DD/ Signed By: <Electronically signed by MIGUEL Squires> 03/08/24 0957 [facility] Work Phone: 1(886) 396-349108-12-2024 Progress note Author Mili Squires [facility] March 01, 2024 9:47am Note Date/Time March 01, 2024 9: 16am [facility] [address] [place] [address] Palliative Medicine Encounter Patient: Alen Calderon MR#: [id number] : 1965 Acct:[id number] Age/Sex: 58 / M Copies to: DO [...] Alcohol Substance Abuse Comment: 6-8 beers daily [place] Symptom Assessment Scale Pain: increased mouth and [...] recorder, note dictated by Mili Squires APRN, MEDICAL ASSISTING INSTRUCTOR-C Dictated By: Mili Squires APRN DD/ 4 Signed By: <Electronically signed by MIGUEL Squires> 03/01/24 0947 [facility] Work Phone: 1([phone]) 744-665308-07-2024 Progress note Author Karly Nielsen [facility] February 25, 2024 12:51pm Note Date/Time February 25, 2024 12: 07pm [facility] [place] [address] Cancer Center Note Signed Patient: Alen Calderon MR#: [id number] : 1965 Acct:[id number] Age/Sex: 58 / M Type: ANDREW AMB [...] treatment plan, and hewill follow-up with Dr. Obrien in 2 weeks, sooner if needed. 02/17/24: [...] 1 of 1 Cycle Day Next Admin No Active Chemotherapy [...] History Father Prostate cancer Mother Cancer [facility] Problem: Diagnosed with Cancer Social History Social [...] signed by Karly Nielsen MD> 02/25/24 1251 [facility] Work Phone: 1(728) 990-634908-05-2024 Progress note Author Mili Squires [facility] February 23, 2024 9:46am Note Date/Time February 23, 2024 9:1 7am [facility] [address] [place] [address] Palliative Medicine Encounter Patient: Alen Calderon MR#: [id number] : 1965 Acct:[id number] Age/Sex: 58 / M Copies to: Charly Hooper DO Mili Squires HADOOP DEVELOPER~ HPI Date of Visit Date of Visit: [...] tabs 02/19/24 Is patient having pain?: Yes [facility] Medical History 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 Chemotherapy/Radiation [...] History Father Prostate cancer Mother Cancer [facility] Problem: Diagnosed with Cancer Social History Smoking Status: Former smoker Tobacco Type: cigarettes Substance Use Type: Alcohol Substance Abuse Comment: 6-8 beers daily [place] Symptom Assessment Scale Pain: throat pain tolerable, [...] Reports improvement in sleep with cyclobenzaprine Continue Bwlfhzcdfboxacg11 mg at bedtime (3) Nausea: Plan: Reports mild occasional nausea, relieved with zofran ODT Continue Zofran ODT PRN without change F/U here one week at time of radiation (4) Oropharyngeal cancer: Problem Comment: Dx: 12/2023 Chemotherapy/Radiation therapy Plan: Continues concurrent chemoradiation Attestation: The above note written by Nathalie Angel MA acting as human recorder, note dictated by Mili Squires APRN, MEDICAL ASSISTING INSTRUCTOR-C Dictated By: Mili Squires APRN DD/ 0917 Signed By: <Electronically signed by MIGUEL Squires> 02/23/24 0946 [facility] Work Phone: 1(202) 552-415307-29-2024 Progress note Author Mili Squires [facility] February 16, 2024 1:18pm Note Date/Time February 16, 2024 9:21 am [facility] [address] [place] [address] Palliative Medicine Encounter Patient: Alen Calderon MR#: [id number] : 1965 Acct:[id number] Age/Sex: 58 / M Copies to: Charly [...] 3-4x day. and tylenol PRN, Magic Mouthwash [place] fatigued on Friday but the weekend provided [...] Alcohol Substance Abuse Comment: 6-8 beers daily [place] Symptom Assessment Scale Pain: sore throat / [...] chemoradiation Attestation: The above note written by Natahlie Angel MA acting as human recorder, note dictated by Mili Squires APRN, MEDICAL ASSISTING INSTRUCTOR-C Dictated By: Mili Squires APRN DD/ 0910 Signed By: <Electronically signed by MIGUEL Squires> 02/16/24 1318 [facility] Work Phone: 1([phone]) 955-558307-22-2024 Progress note Author Mili Squires [facility] February 09, 2024 9:15am Note Date/Time February 09, 2024 9:07 am [facility] [address] [place] [address] Palliative Medicine Encounter Patient: Alen Calderon MR#: [id number] : 1965 Acct:[id number] Age/Sex: 58 / M Copies to: DO [...] Alcohol Substance Abuse Comment: 6-8 beers daily [place] Symptom Assessment Scale Pain: intermittent minor sore [...] recorder, note dictated by Mili Squires APRN, MEDICAL ASSISTING INSTRUCTOR-C Dictated By: Mili Squires APRN DD/ 6 Signed By: <Electronically signed by MIGUEL Squires> 02/09/24 0915 [facility] Work Phone: 1([phone]) 320-309807-15-2024 Progress note Author Mili Squires [facility] February 02, 2024 9:23am Note Date/Time February 02, 2024 8:58 am [facility] [address] [place] [address] Palliative Medicine Encounter Patient: Alen Calderon MR#: [id number] : 1965 Acct:[id number] Age/Sex: 58 / M Copies to: Charly [...] Alcohol Substance Abuse Comment: 6-8 beers daily [place] Symptom Assessment Scale Pain: denies Nausea/Vomiting: mild, [...] recorder, note dictated by Mili Squires APRN, MEDICAL ASSISTING INSTRUCTOR-C Dictated By: Mili Squires APRN DD/ Signed By: <Electronically signed by MIGUEL Squires> 02/02/24 09 [facility] Work Phone: 1([phone]) 631-554306-19-2024 Progress note Author Karly Nielsen [facility] January 07, 2024 2:56pm Note Date/Time January 07, 2024 1:49 pm [facility] [place] [place] [address] Cancer Center Note Signed Patient: Alen Calderon MR#: [id number] : 1965 Acct:[id number] Age/Sex: 58 / M Type: REG AMB [...] Patient will be have CT/SIM next . [facility] Medical History Medical History (Updated 01/06/24 @ [...] 07:47 Dictated By: Karly Nielsen MD DD/ 0068 Signed By: <Electronically signed by Karly Nielsen MD> 01/07/24 3156 [facility] Work Phone: 1([phone]) 300-239406-19-2024 Progress note Author Marbella Muñoz [facility] January 07, 2024 3:28pm Note Date/Time January 07, 2024 1:08 pm [facility] [place] [place] [address] Cancer Center Note Signed Patient: Alen Calderon MR#: [id number] 88 : 1965 Acct:[id number] Age/Sex: 58 / M Type: REG AMB [...] level 2lymph node with delivery of 52.8 Ewbb to the elective cirilo regions bilateral neck. Fortunately patient is seen a dentist in [place] we will obtain clearance. I provided a [...] by his . He works for a [employer] in [place]. Anticipates taking FMLA for treatment. Denies significant [...] He denies pain and is eating well. [facility] Medical History Medical History (Updated 01/06/24 @ [...] History Father Prostate cancer Mother Cancer [facility] Problem: Diagnosed with Cancer Social History Social [...] signed by Marbella Muñoz MD> 01/07/24 1528 [facility] Work Phone: 1(841) 840-712706-19-2024 Hospital Discharge instructionsAmbulatory Orders* Referral to Audiology Time Frame: 01/07/24, Location: None Selected * Referral to General Surgery Time Frame: 01/07/24, Location: None Selected [facility] Work Phone: [phone]) [phone] Hospital Discharge instructions Patient Education 08/18/2023 11:39:40 [...] Follow these instructions at home: Medicines Take aaej-suc-brsldhb and prescription medicines only as told by [...] provider. Document Revised: 10/03/2021 Document Reviewed: 10/03/2021 Elsevier Patient Education 2022 [employer]. Follow Up Care 08/09/2022 10:17:02 With:KAYDEN URBINA, Abner Mojica, URL Address: [facility] [address] , [place] [address]- [phone] When: Unknown Comments:PSA in 6 mos, f/u in 1 yr w/ repeat PSA [facility] [place] 01-20-2023 Hospital Discharge instructions Patient Education 08/09/2022 10:12:33 [...] urethra. Follow these instructions at home: Take vrzg-dpu-bgsfcoq and prescription medicines only as told by [...] 07/07/2006 Document Revised: 06/01/2019 Document Reviewed: 08/11/2017 [employer] Patient Education 2020 [employer]. Follow Up Care 07/23/2021 10:55:23 With:KAYDEN URBINA, Abner Mojica, URL Address: [address] [place] [address]- When: Unknown Comments:1 year w/ PSA [facility] 01[facility]-20[facility] Order[facility]: Dr. Riaz Hooper [...] insomnia or depressions. 3. Please correlate clinically.[facility] Future App[facility]ments Appointment Date:08/04/2023 08:45:00 AM Scheduled Provider:Abner MONIQUE MD Location:[facility] Appointment Type:URO Office Visit Diagnostic Tests Pending * PSA Total 06/20/23 [facility] evaluation + Plan note Future Appointments Appointment Date:08/16/2024 08:45:00 AM Scheduled Provider:Abner MONIQUE MD Location:[facility] Appointment Type:URO Office Visit Diagnostic Tests Pending * PSA Total 08/18/23 [facility] evaluation + Plan note Future Appointments Appointment Date:10/19/2025 08:00:00 AM Scheduled Provider: Location:[facility] Appointment Type:URO Nurse Visit Appointment Date:10/24/2025 08:45:00 AM Scheduled Provider:Abner MONIQUE MD Location:[facility] Appointment Type:URO Office Visit Future Scheduled Tests Laboratory* PSA Total 10/11/25 [facility] evaljiqtcg note* Diagnosis Onset Date Resolution Status Maxillary sinusitis acute Swelling, mass, or lump in head and neck [facility] Work Phone: Evaluation note* Diagnosis Onset Date Resolution Status Maxillary sinusitis acute Swelling, mass, or lump in head and neck acute Oropharyngeal cancer acute Oropharyngeal cancer acute [facility] Work Phone: evaluzsqqa note* Diagnosis Onset Date Resolution Status Maxillary sinusitis acute Swelling, mass, or lump in head and neck acute Oropharyngeal cancer acute Oropharyngeal cancer acute Acute insomnia acute Oropharyngeal cancer acute [facility] Work Phone: evaluation note* Diagnosis Onset Date Resolution Status Maxillary sinusitis acute Swelling, mass, or lump in head and neck acute Oropharyngeal cancer acute Oropharyngeal cancer acute Acute insomnia acute Oropharyngeal cancer acute Cancer associated pain acute Encounter for palliative care acute Oropharyngeal cancer acute [facility] Work Phone: evaluation note* Diagnosis Onset Date Resolution Status Maxillary sinusitis acute Swelling, mass, or lump in head and neck acute Oropharyngeal cancer acute Oropharyngeal cancer acute Acute insomnia acute Oropharyngeal cancer acute Cancer associated pain acute Encounter for palliative care acute Oropharyngeal cancer acute Cancer associated pain acute Oropharyngeal cancer acute [facility] Work Phone: evaluation note* Diagnosis Onset Date Resolution Status Maxillary sinusitis acute Swelling, mass, or lump in head and neck acute Oropharyngeal cancer acute Oropharyngeal cancer acute Acute insomnia acute Oropharyngeal cancer acute Cancer associated pain acute Encounter for palliative care acute Oropharyngeal cancer acute Cancer associated pain acute Oropharyngeal cancer acute Oropharyngeal cancer acute Cancer associated pain acute Oropharyngeal cancer acute [facility] Work Phone: evaluation note* Diagnosis Onset Date Resolution Status Oropharyngeal cancer acute Oropharyngeal cancer acute Acute insomnia acute Oropharyngeal cancer acute Cancer associated pain acute Encounter for palliative care acute Oropharyngeal cancer acute Cancer associated pain acute Oropharyngeal cancer acute Oropharyngeal cancer acute Cancer associated pain acute Oropharyngeal cancer acute Cancer associated pain acute Oropharyngeal cancer acute [facility] Work Phone: evalubxdoc note* Diagnosis Onset Date Resolution Status Oropharyngeal [...] pain acute Nausea acute Oropharyngeal cancer acute [facility] Work Phone: evaluxcaay note* Diagnosis Onset Date Resolution Status Oropharyngeal [...] acute Oropharyngeal cancer acute Oropharyngeal cancer acute [facility] Work Phone: evaluation note* Diagnosis Onset [...] Cancer associated pain acute Oropharyngeal cancer acute [facility] Work Phone: evaluation note* Diagnosis Onset Date [...] Cancer associated pain acute Oropharyngeal cancer acute [facility] Work Phone: evalugurgt note* Diagnosis Onset Date Resolution Status Oropharyngeal [...] acute Oropharyngeal cancer acute Oropharyngeal cancer acute [facility] Work Phone: evaluation note* Diagnosis Onset [...] acute Oropharyngeal cancer acute Oropharyngeal cancer acute [facility] Work Phone: Evaluation note* Diagnosis Lesion of tongue- Primary Malignant neoplasm of oropharynx (CMS/HCC) Malignant neoplasm of oropharynx, unspecified site History of head and neck radiation [facility] Diagnosis Lesion of tongue- Primary Malignant neoplasm of oropharynx (CMS/HCC) Malignant neoplasm of oropharynx, unspecified site History of head and neck radiation [facility] Diagnosis Malignant neoplasm of oropharynx (CMS/HCC)- Primary Malignant neoplasm of oropharynx, unspecified site 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) History of head and neck radiation [facility] Diagnosis Cancer of tonsil (CMS/HCC)- Primary Malignant neoplasm of tonsil [facility] Diagnosis Malignant neoplasm of oropharynx (CMS/HCC)- Primary Malignant neoplasm of oropharynx, unspecified site 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) History of head and neck radiation [facility] Diagnosis Left knee pain, unspecified chronicity- Primary Arthritis of left knee [facility] Diagnosis Cancer of tonsil (CMS/HCC)- Primary Malignant neoplasm of tonsil Venous insufficiency Unspecified venous (peripheral) insufficiency [facility] Diagnosis Malignant neoplasm of oropharynx (CMS/HCC)- Primary Malignant neoplasm of oropharynx, unspecified site 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) History of head and neck radiation [facility] Diagnosis Malignant neoplasm of oropharynx (CMS/HCC)- Primary Malignant neoplasm of oropharynx, unspecified site 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) Neck mass Swelling, mass, or lump in head and neck History of head and neck radiation [facility] Diagnosis Malignant neoplasm of oropharynx- Primary Malignant neoplasm of oropharynx, unspecified site Neck fullness [facility]* Diagnosis Acute pain of left knee- Primary Arthritis of left knee [facility] Diagnosis Malignant neoplasm of oropharynx (HCC)- Primary Malignant neoplasm of oropharynx, unspecified site History of head and neck radiation [facility] Diagnosis Acute pain of left knee Arthritis of left knee [facility] Narrative* Nohemi Vizcaino, DO - 07/19/2024 2:30 PM EST Images from the original note were not included. Alen Calderon 1965 Alen Calderon is a 59 y.o. male presents with chief complaint of Schedule port removal HPI: HPI Alen presents to discuss having the ffrzvo-s-xzdw removed SUBJECTIVE: MEDICATIONS: ALLERGIES Current Outpatient Medications Medication Instructions amiodarone (Pacerone) 200 MG tablet amiodarone 200 mg tablet amLODIPine (Norvasc) 10 MG tablet amlodipine 10 mg tablet carvedilol (Coreg) 25 MG tablet TAKE 1 TABLET BY MOUTH TWICE A DAY DIRECTED Flaxseed, Linseed, (Flax Seed Oil) 1000 MG capsule Orally furosemide (LASIX) 40 mg, Daily RT ibuprofen 600 mg, Every 6 hours PRN losartan (Cozaar) 100 MG tablet losartan 100 mg tablet omega-3 (Fish Oil) 1000 MG capsule 1 capsule, Every 24 hours omeprazole (PriLOSEC) [address] capsule TAKE 1 CAPSULE DAILY ON AN EMPTY STOMACH FOLLOWED IN 30 MINUTES BY BREAKFAST ondansetron ODT (ZOFRAN-ODT) 8 mg, Every 8 hours PRN tadalafil (CIALIS) 20 mg, Daily PRN traMADol (ULTRAM) 50 mg, Every 4 hours PRN traZODone (DESYREL) 50 mg, Nightly PRN Allergies Allergen Reactions Oxycodone Itching PAST MEDICAL HISTORY: SOCIAL HISTORY SURGICAL HISTORY: Past Medical History: Diagnosis Date A-fib ([facility]) Benign prostatic hyperplasia with urinary obstruction 05/07/2023 BMI 35.0-35.9,adult 05/07/2023 GERD (gastroesophageal reflux disease) Hypertension ([facility]) Maxillary sinusitis 12/20/2023 Prostate cancer ([facility]) Sleep apnea Tonsillar cancer ([facility]) 2023 Social History Tobacco Use Smoking status: Former Current packs/day: 0.00 Average packs/day: 1 pack/day for 5.0 years (5.0 ttl pk-yrs) Types: Cigarettes Start date: 07/21/1987 Quit date: 07/21/1992 Years since quittin.0 Smokeless tobacco: Never Substance Use Topics Alcohol use: Yes Alcohol/week: 30.0 standard drinks of alcohol Types: 30 Cans of beer per week Comment: 5 or 6 drinks, 4 or more times a week Drug use: Not Currently Past Surgical History: Procedure Laterality Date CARDIAC ELECTROPHYSIOLOGY MAPPING AND ABLATION CARPAL TUNNEL RELEASE Bilateral Left 01/16/22, Right 02/06/[address] ANGIOGRAM HEART CORONARY 03/09/2022 CT ANGIOGRAM TAVR KNEE SURGERY Left 2011 scope MENISCECTOMY Right 06/13/2021 medial meniscectomy and abrasion chondroplasty Dr. Nguyen PROSTATE SURGERY TONSILLECTOMY Right 12/25/2023 FNA Neck Mass Right Tonsil Biopsy UMBILICAL HERNIA REPAIR 2014 2017 VASECTOMY FAMILY HISTORY Family History Problem Relation Name Age of Onset Cancer Mother Antonia Cancer Father Juan Breast cancer Neg Hx Colon cancer Neg Hx Ovarian cancer Neg Hx REVIEW OF SYMPTOMS: Review of Systems Constitutional: Negative for activity change. HENT: Negative for hearing loss and voice change. Respiratory: Negative for shortness of breath. Cardiovascular: Negative for chest pain. Gastrointestinal: Negative for abdominal distention, diarrhea, nausea and vomiting. Neurological: Negative for dizziness, seizures and headaches. Psychiatric/Behavioral: Negative. All other systems reviewed and are negative. OBJECTIVE: Visit Vitals BP 120/68 Ht 5' 10 Wt 233 lb BMI 33.43 kg/m Smoking Status Former BSA 2.29 m Physical Exam Vitals reviewed. HENT: Head: Normocephalic. Eyes: Pupils: Pupils are equal, round, and reactive to light. Cardiovascular: Rate and Rhythm: Normal rate and regular rhythm. Pulmonary: Effort: Pulmonary effort is normal. Abdominal: General: Bowel sounds are normal. Palpations: Abdomen is soft. Musculoskeletal: General: Normal range of motion. Skin: General: Skin is warm. Neurological: General: No focal deficit present. Mental Status: He is alert. ASSESSMENT AND PLAN: Assessment/Plan Problem List Items Addressed This Visit Cancer of tonsil (CMS/HCC) - Primary I discussed the procedure for xxcbcl-l-kxdu removal. I explained it can be done under local anesthesia or with the addition of IV sedation. He is fine with straight local. The procedure has been scheduled. documented in this [facility] course Narrative No data available for this section [facility] Hospital Discharge instructions Additional Instructions DISCHARGE [...] directed for pain unless a prescription was provided.[facility] Work Phone: Hospital Discharge instructionsAmbulatory Orders* Referral to General Surgery Time Frame: 06/10/24, Location: None Selected [facility] Work Phone: Hospital Discharge instructions No data available for this section [facility] progress note No data available for this section [facility] proggder note Author Karly Nielsen [facility] April 08, 2024 9:59am Note Date/Time April 08, 2024 9:33am [facility] [place] [address] Cancer Center Note Signed Patient: Alen Calderon MR#: [id number] : 1965 Acct:[id number] Age/Sex: 59 / M Type: REG AMB Date of Service: 04/08/24 Copies to: Charly Hooper,DO~ Assessment & Plan [...] treatment plan, and hewill follow-up with Dr. Obrien in 2 weeks, sooner if needed. 02/17/24: [...] point. He is taking his potassium pills ubjq-vef-hequuzi 2 pills daily. He is taking his [...] determined an order his follow-up imaging. Continue jvif-tay-ybtasqd potassium pills 1-2 daily until he started eating 1 banana daily consumption potassium pills. For the hypomagnesemia we will give gave him 3-4 g of IV magnesium. Continue oral magnesium jxng-ovg-nmijvej to take it once a day. Repeat [...] point. He is taking his potassium pills ptml-nsq-zgmejlb 2 pills daily. He is taking his [...] mouth sore and some pain with swallowing. [facility] Medical History Medical History Oropharyngeal cancer Dx: [...] 09:46 Dictated By: Karly Nielsen MD DD/ 0 Signed By: <Electronically signed by Karly Nielsen MD> 04/08/24 0959 [facility] Work Phone: Progress note Author Marbella Muñoz [facility] April 08, 2024 10:20am Note Date/Time April 08, 2024 10:14am [facility] [place] [address] Cancer Center Note Signed Patient: Alen Calderon MR#: [id number] : 1965 Acct:[id number] Age/Sex: 59 / M Type: REG AMB [...] [Percocet] Allergy (Unknown, Verified 03/18/24 09:18) rash [facility] Medical History Medical History 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 Chemotherapy/Radiation therapy Paroxysmal atrial fibrillation MARYANN (obstructive sleep apnea) Obesity, unspecified Malignant neoplasm of prostate (07/21/18) s/p radioactive seeds Hyperlipidemia, unspecified (11/01/18) Hyperglycemia, unspecified (05/22/18) GERD (gastroesophageal reflux disease) [...] 09:46 Dictated By: Marbella Muñoz MD DD/ 102 Signed By: <Electronically signed by Marbella Muñoz MD> 04/08/24 1020 [facility] Work Phone: Progress note Author Marbella Muñoz [facility] Note Date/Time November 08, 2024 9:5 2am [facility] [place] [place] [address] Cancer Center Note Signed Patient: Alen Calderon MR#: [id number] : 1965 Acct:[id number] Age/Sex: 59 / M Type: DEP AMB Date of Service: 11/08/24 Copies to: DO Charly Light DO~ Assessment & Plan (1) Oropharyngeal cancer: Plan: Return to clinic with MEDICAL ASSISTING INSTRUCTOR -April 2025 for physical exam-we will stagger with ENT Assessment: 59-year-old male with stage II, 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 March 11, 2024 he completed concurrent chemoradiation to a dose of 69.96 Webb in 33 fractions to the right tonsil and level 2 lymph node with delivery of 52.8Gray to the elective cirilo regions bilateral neck. June 30 2024 posttreatment PET is negative for residual disease. Last saw ENT October 25- neck CT scan negative. Clinically stable. Discussed xerostomia likely new normal . Declines referralfracture puncture. I again recommended dental follow-up due to the degree of xerostomia-patient was counseled on the risk of dental decay. Sees ENT in January. We will stagger appointments see him back in April with physical exam. Medications: New ibuprofen Take one tablet, every eight hours as needed for pain. Take take with food. 800 mg PO Q8HR 60 tabs 0RF G89.3 - Neoplasm related pain (acute) (chronic) Discontinued ibuprofen do not exceed 4 doses in a 24 hour period Discontinued Reason: Prescription Completed 600 mg PO Q4-6H 3 days PRN 14 tabs 2RF pain History of Present Illness HPI 59-year-old male presenting with large right-sided neck mass. [...] Tolerated his treatment with expected side effects. 1 month follow-up. Reported pain on the right side of the posterior tongue. Hehas increased his oral intake but still following and predominantly bland diet. Uses Motrin for pain. ENT felt the right tongue pain was likely mucositis and he was given Kenalog with Orabase. June 30 2024 posttreatment PET shows interval improvement in the prominentright level 2A lymph nodes without significant increase to suggest residual malignancy. No concern for metastatic disease. Last saw ENT October 25-apparently there was concern for soft tissue fullness in the neck however subsequent neck CT scan with contrast was negative. Today continues to report xerostomia. States xnam-rpn-lcnyabv Biotene somewhat helpful but no significant improvement. Denies dysphagia. No issues with oral intake. No limitations in daily activities. Intake Intake Visit Reasons: Follow Up, H+N Allergies oxycodone (Percocet) Allergy (Unknown, Verified 08/25/24 09:28) Itching PMF[facility] Medical History Medical History 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 [facility] Chemotherapy/Radiation therapy Paroxysmal atrial fibrillation MARYANN (obstructive sleep apnea) wears CPAP Obesity, unspecified Malignant neoplasm of prostate (07/21/18) [...] or 4 Physical Exam EXAM Physical Exam: KPS 90 General: alert, no acute distress HEENT: normocephalic, EOMI, no trismus noted. Oral cavity is notable for very narrow mandible. Patient has multiple dental fillings. Floor of mouth shows dental abnormality that is congenital. Buccal and gingival mucosa with dry mucous membranes. Oral tongue is soft, mobile. Difficult to visualize through right base of tongue. Scarring of right tonsillar pillar consistent with radiation field. Neck: Bilateral neck negative for palpable lymphadenopathy. Minimal radiationfibrosis. No residual skin change. Mild dewlap. CHEST: normal work of breathing on room air. Abdomen: non acute MSK: extremities within normal limits Neuro: grossly intact Results - Cancer Ctr (Rad Onc) LAB RESULTS No Data to Display Social Determinants of Health Screening SDOH last assessed in clinic: 11/08/24 Will the patient participate in the screening?: Yes Do you worry about having a steady place to live?: No In the past 12 months, have you had to go without electric, gas, oil, or water in your home?: No Have you or anyone in your house had to go without enough food to eat?: No Has lack of reliable transportation kept you from medical appointments or from doing things needed for daily living?: No Has anyone in your support network made you feel unsafe for any reason?: No Does the patient want assistance with any of the above?: No Dictated By: Marbella Muñoz MD DD/ Signed By: <Electronically signed by Marbella Muñoz MD> 11/08/24 0956 [facility] Work Phone: Summary Purpose Family History No Family History Records Found Relationship Condition Age at Onset Recorded Date/T cyril father Unknown Malignant neoplasm Unknown Not Specified Malignant neoplasm Unknown Unknown Relationship Condition Age at Onset Recorded Date/T cyril father Unknown Malignant neoplasm of prostate Unknown Not Specified Unknown Malignant neoplasm Unknown Relationship Condition Age at Onset Recorded Date/T cyril father Unknown Malignant neoplasm of prostate Unknown mother Unknown Malignant neoplasm Unknown Advance Directives No Advanced Directives Records Found Advance Directive Response Recorded Date/ Time Advance [...] 9:30am 1 Month Follow Up, H+N April 08, 9:36am Follow Up 2 Month June 10, 2024 11:28am Reason for Visit Admit Date Oropharyngeal cancer March 18, 2024 9 :11am Oropharyngeal cancer April 08 9:30am Oropharyngeal cancer April 08 9:36am Oropharyngeal cancer June 10, 2024 11:28am Chief Complaint Admit Date Follow Up 2 Month June 10, 2024 11:28am Follow Up after PET, H+N July 05, 2024 8:43am Tonsil Cancer July 05, 2024 8:44am oral pharyngeal cancer July 30 11:37am Reason for Visit Admit Date Oropharyngeal cancer June 10, 2024 11:28am Oropharyngeal cancer July 05, 2024 8:43am Chief Complaint Admit Date Follow Up 2 Month June 10, 2024 11:28am Follow Up after PET, H+N July 05, 2024 8:43am Tonsil Cancer July 05, 2024 8:44am oral pharyngeal cancer July 30 11:37am sore throat, ear pain August 25, 2024 9:27am Reason for Visit Admit Date Oropharyngeal cancer June 10, 2024 11:28am Oropharyngeal cancer July 05, 2024 8:43am Acute pharyngitis August 25, 2024 9 :27am Nausea August 25, 2024 9 :27am Chief Complaint Admit Date sore throat, ear pain August 25, 2024 9:27am Follow Up, H+N November 08, 2024 9:1 6am Tonsil Cancer November 08, 2024 9:1 7am Reason for Visit Admit Date Acute pharyngitis August 25, 2024 9 :27am Nausea August 25, 2024 9 :27am Oropharyngeal cancer November 08, 2024 9: 16am Additional Source Comments (unrecognized sect ion and content) No Status Records FoundNo Status Records FoundNo Status Records FoundNo Status Records FoundNo Status Records FoundNo Status Records FoundNo Status Records Found INFORMATION SOURCE (unrecogn ized section and content) DATE CREATED AUTHOR 03/26/2022 [facility] DATE CREATED AUTHOR AUTHOR'S ORGANIZ ATION 08/01/2022 [facility] DATE CREATED AUTHOR AUTHOR'S ORGANIZ ATION 11/08/2024 [facility] DATE CREATED AUTHOR AUTHOR'S ORGANIZ ATION 12/01/2024 [facility] DATE CREATED AUTHOR AUTHOR'S ORGANIZ ATION 03/11/2025 [facility] EPIC DATE CREATED AUTHOR AUTHOR'S ORGANIZ ATION 04/23/2025 [facility] Patient Care team informatio n (unrecognized section and content) Team Status: Active Member Role Status Dates Charly Hooper DO Primary Care Provider Active Team Status: Inactive Member Role Status Dates Charly Hooper DO Primary Care Provider Active Start: November 13, 2023 End: November 13, 2023 Katy Mcdonald APRN NP-C Attending Provider Act candice Start: November 13, [...] End: January 12, 2024 Katy Mcdonald APRN MEDICAL ASSISTING INSTRUCTOR-C Attending Provider Act candice Start: January 12, [...] Active Start: February 09, 2024 Charly Nowak , DO Referring Provider [...] Start: February 11, 2024 Charly Nowak , Referring Provider Active S tart: February 11, [...] Active Start: February 16, 2024 Charly Nowak , Referring Provider Active S tart: February 16, [...] Status: Active Member Role Status Dates Charly Hooepr DO Primary Care Provider Active Start: March 03, 2024 Charly Nowak DO Referring Provider Active S tart: March 03, 2024 Marbella Muñoz MD Attending [facility] er, Other Provider Active Start: March 03, [...] February 09, 2024 Marbella Muñoz MD Attending [facility] er, Other Provider Active Start: February 09, [...] Role Status Tona Hooper DO Primary Care Provide r, Attending [...] April 08, 2024 End: April 08, 2024 Chemical Inspector Relationship Specialty Start Date End Date Charly Hooper MD [address] [place] [phone] PCP - General Internal Medicine 12/23/22 Charly Nowak DO [address] [place] [address] Otolaryngology 12/22/23 Mateo Moraes MD [address] [facility] [address] [place] [address] Referring Physician Otolaryngology 12/22/23 Chemical Inspector Relationship Specialty Start Date End Date Charly Hooper MD [address] [place] [address] PCP - General Internal Medicine 12/23/22 Charly Nowak DO [address] [place] [address] Otolaryngology 12/22/23 Mateo Moraes MD [address] [facility] [address] [place] [address] Referring Physician Otolaryngology 12/22/23 Chemical Inspector Relationship Specialty Start Date End Date Charly Hooper MD [address] [place] [phone] PCP - General Internal Medicine 12/23/22 Nadja Escamilla, MEDICAL ASSISTING INSTRUCTOR [address] [facility] [address] [place] [address] PCP - [employer] 07/21/23 Charly Nowak DO [address] [place] [address] Otolaryngology 12/22/23 Mateo Moraes MD [address] [facility] [address] [place] [address] Referring Physician Otolaryngology 12/22/23 Chemical Inspector Relationship Specialty Start Date End Date Charly Hooper MD [address] [place] [phone] PCP - General Internal Medicine 12/23/22 Nadja Escamilla, MEDICAL ASSISTING INSTRUCTOR [address] [facility] [address] [place] [address] PCP - [employer] 07/21/23 Charly Nowak DO [address] [place] [address] Otolaryngology 12/22/23 Mateo Moraes MD [address] [facility] [address] [place] [address] Referring Physician Otolaryngology 12/22/23 Team Status: Inactive Member Role Status Dates Charly Hooper DO Primary Care Provider Active Start: June 10, 2024 End: June 10, 2024 Karly Nielsen MD Attending Provider Active Start: June 10, 2024 End: June 10, 2024 Marbella Muñoz MD Active Star t: June 10, 2024 Karly Nielsen MD Attending Provider Active Start: June 10, 2024 Chemical Inspector Relationship Specialty Start Date End Date Charly Hooper MD [address] [place] [phone] PCP - General Internal Medicine 12/23/22 Charly Nowak DO [address] [place] [address] Otolaryngology 12/22/23 Mateo Moraes MD [address] [place] [address] [address] [place] [address] Referring Physician Otolaryngology 12/22/23 Chemical Inspector Relationship Specialty Start Date End Date Charly Hooper MD [address] [place] [phone] PCP - General Internal Medicine 12/23/22 Charly Nowak DO [address] [place] [address] Otolaryngology 12/22/23 Mateo Moraes MD [address] [place] [address] [address] [place] [address] Referring Physician Otolaryngology 12/22/23 Chemical Inspector Relationship Specialty Start Date End Date Charly Hooper MD [address] [place] [address] PCP - General Internal Medicine 12/23/22 Nadja Escamilla NP [address] [place] [address] PCP - [employer] 07/21/23 Charly Nowak DO [address] [place] [address] Otolaryngology 12/22/23 Mateo Moraes MD [address] [place] [address] Referring Physician Otolaryngology 12/22/23 Team Status: Inactive Member Role Status Dates Charly Hooper DO Primary Care Provider Active Start: June 10, 2024 End: June 10, 2024 Karly Nielsen MD Attending Provider Active Start: June 10, 2024 End: June 10, 2024 Team Status: Inactive Member Role Status Dates Charly Hooper DO Primary Care Provider Active Start: July 05, 2024 End: July 05, 2024 Marbella Muñoz MD Attending Provider Active Start: July 05, 2024 End: July 05, 2024 Team Status: Active Member Role Status Dates Charly Hooper DO Primary Care Provider Active Start: July 05, 2024 Charly Nowak DO Referring Provider Active S tart: July 05, 2024 Marbella Muñoz MD Attending Provider Active Start: July 05, 2024 Karly Nielsen MD Active St art: July 05, 2024 Team Status: Active Member Role Status Dates Charly Hooper DO Primary Care Provider Active Start: July 19, 2024 Abner Monique MD Attending Provider Active St art: July 19, 2024 Team Status: Inactive Member Role Status Dates Charly Hooper DO Primary Care Provider Active Start: July 30, 2024 End: July 30, 2024 Nohemi Itzkowitz , DO Attending Provider Active Start: July 30, 2024 End: July 30, 2024 Chemical Inspector Relationship Specialty Start Date End Date Charly Hooper MD [address] [place] [phone] PCP - General Internal Medicine 12/23/22 Nadja Escamilla, MEDICAL ASSISTING INSTRUCTOR [address] [facility] [address] [place] [address] PCP - [employer] 07/21/23 Charly Nowak DO [address] [place] [address] Otolaryngology 12/22/23 Mateo Moraes MD [address] [facility] [address] [place] [address] Referring Physician Otolaryngology 12/22/23 Chemical Inspector Relationship Specialty Start Date End Date Charly Hooper MD [address] [place] [phone] PCP - General Internal Medicine 12/23/22 Nadja Escamilla, MEDICAL ASSISTING INSTRUCTOR [address] [facility] [address] [place] [address] PCP - [employer] 07/21/23 Charly Nowak DO [address] [place] [address] Otolaryngology 12/22/23 Mateo Moraes MD [address] [facility] [address] [place] [address] Referring Physician Otolaryngology 12/22/23 Chemical Inspector Relationship Specialty Start Date End Date Charly Hooper MD [address] [place] [id number] PCP - General Internal Medicine 12/23/22 Nadja Escamilla, MEDICAL ASSISTING INSTRUCTOR [address] [facility] [address] [place] [address] PCP - [employer] 07/21/23 Charly Nowak DO [address] [place] [address] Otolaryngology 12/22/23 Mateo Moraes MD [address] [facility] [address] [place] [address] Referring Physician Otolaryngology 12/22/23 Team Status: Inactive Member Role Status Dates Charly Hooper DO Primary Care Provider Active Start: August 25, 2024 End: August 25, 2024 Katy Mcdonald APRN MEDICAL ASSISTING INSTRUCTOR-C Attending Provider Active Start: August 25, 2024 End: August 25, 2024 Chemical Inspector Relationship Specialty Start Date End Date Charly Hooper MD [address] [place] [phone] PCP - General Internal Medicine 12/23/22 Nadja Escamilla, MEDICAL ASSISTING INSTRUCTOR [address] [facility] [address] [place] [address] PCP - [employer] 07/21/23 Charly Nowak DO [address] [place] [address] Otolaryngology 12/22/23 Mateo Moraes MD [address] [place] [address] Referring Physician Otolaryngology 12/22/23 Chemical Inspector Relationship Specialty Start Date End Date Charly Hooper MD [address] [place] [address] PCP - General Internal Medicine 12/23/22 Nadja Escamilla, MEDICAL ASSISTING INSTRUCTOR PCP - [employer] 07/21/23 Charly Nowak DO [address] [place] [address] Otolaryngology 12/22/23 Mateo Moraes MD [address] [place] [address] Referring Physician Otolaryngology 12/22/23 Chemical Inspector Relationship Specialty Start Date End Date Charly Hooper MD [address] [place] [address] PCP - General Internal Medicine 12/23/22 Nadja Escamilla MEDICAL ASSISTING INSTRUCTOR PCP - [employer] 07/21/23 Charly Nowak DO [address] [place] [address] Otolaryngology 12/22/23 Mateo Moraes MD [address] [place] [address] Referring Physician Otolaryngology 12/22/23 Chemical Inspector Relationship Specialty Start Date End Date Charly Hooper MD [address] [place] [address] PCP - General Internal Medicine 12/23/22 Nadja Escamilla MEDICAL ASSISTING INSTRUCTOR PCP - [employer] 07/21/23 Charly Nowak DO [address] [place] [address] Otolaryngology 12/22/23 Mateo Moraes MD [address] [place] [id number] Referring Physician Otolaryngology 12/22/23 Team Status: Inactive Member Role Status Dates Charly Hooper DO Primary Care Provider Active Start: November 08, 2024 End: November 08, 2024 Marbella Muñoz MD Attending Provider Active Start: November 08, 2024 End: November 08, 2024 Team Status: Active Member Role Status Dates Charly Hooper DO Primary Care Provider Active Start: November 08, 2024 Charly Nowak DO Referring Provider Active S tart: November 08, 2024 Marbella Muñoz MD Attending Provider Active Start: November 08, 2024 [facility] Sheeba Nielsen MD Active St art: November 08, 2024 Chemical Inspector Relationship Specialty Start Date End Date Charly Hooper MD [address] [place] [id number] PCP - General Internal Medicine 12/23/22 Nadja Escamilla MEDICAL ASSISTING INSTRUCTOR PCP - [employer] 07/21/23 Charly Nowak DO [address] [place] [place] [address] Otolaryngology 12/22/23 Mateo Moraes MD [address] [facility] [address] [place] [address] Referring Physician Otolaryngology 12/22/23 Chemical Inspector Relationship Specialty Start Date End Date Charly Hooper MD [address] [place] [address] PCP - General Internal Medicine 12/23/22 Nadja Escamilla MEDICAL ASSISTING INSTRUCTOR PCP - [employer] 07/21/23 Charly Nowak DO [address] [place] [address] Otolaryngology 12/22/23 Mateo Moraes MD [address] [place] [address] [address] [place] [address] Referring Physician Otolaryngology 12/22/23 Chemical Inspector Relationship Specialty Start Date End Date Charly Hooper DO [address] [place] [phone] PCP - General Internal Medicine 12/23/22 Nadja Escamilla NP PCP - [employer] 07/21/23 Charly Nowak DO [address] [place] [address] Otolaryngology 12/22/23 Mateo Moraes MD [address] [place] [address] Referring Physician Otolaryngology 12/22/23 Chemical Inspector Relationship Specialty Start Date End Date Charly Hooper, DO [address] [place] [address] PCP - General Internal Medicine 12/23/22 Nadja Escamilla MEDICAL ASSISTING INSTRUCTOR PCP - [employer] 07/21/23 Charly Nowak, DO [address] [place] [address] Otolaryngology 12/22/23 Mateo Moraes MD [address] [facility] [address] [place] [address] Referring Physician Otolaryngology 12/22/23 Chemical Inspector Relationship Specialty Start Date End Date Charly Hooper DO [address] [place] [address] PCP - General Internal Medicine 12/23/22 Nadja Escamilla MEDICAL ASSISTING INSTRUCTOR PCP - [employer] 07/21/23 Charly Nowak, DO [address] [place] [address] Otolaryngology 12/22/23 Mateo Moraes MD [address] [place], [place] [id number] Referring Physician Otolaryngology 12/22/23 Chemical Inspector Relationship Specialty Start Date End Date Charly Hooper, [address] [facility] [place] [address] PCP - General Internal Medicine 12/23/22 Nadja Escamilla NP PCP - [employer] 07/21/23 Charly Nowak, DO [address] [facility] [place] [address] Otolaryngology 12/22/23 Mateo Moraes MD [address] [facility] [address] [place], [place] [id number] Referring Physician Otolaryngology 12/22/23 Goals (unrecognized section and content) Goals may be documented in a n alternate section Reason for Visit (unrecogniz ed section and content) Reason Comments Cancer 6 week recheck tonsi l CA Reason Comments Cancer 6 week recheck tonsi l cancer Reason Comments Cancer 1 month tammy Reason Comments Schedule port removal Reason Comments Cancer Reason Comments Pain Reason Comments 1st po port removal Reason Comments Cancer 6 week tammy Reason Comments Cancer CT results Reason Comments Pain Reason Comments Cancer 3 month tammy Reason Comments Follow-up FOR RECORDS PERTAINING TO PATIENTS WHO ARE [...] BE BASED ON THE PRIMARY CLINICAL RECORDS. [employer] [facility]. provides no warranty or guarantee of the accuracy or completeness of information in this document.
[2025-04-23 09:32] LABS: Glucose Urine UA NEGATIVE (NEGATIVE)
[2025-04-23 09:57] LABS: Cast Seen? SEEN #/LPF (NONE SEEN); Crystals Seen? None Seen #/HPF (None Seen)
[2025-04-23 11:20] LABS: Prostate Specific Antigen Dx 5.28 ng/mL (<=4.00)
== END 2025-04-23 09:13 | disposition home or self-care (01) ==
LOC: LAB 09:12
PROVIDERS: PCP Internal Medicine; Visit Provider Urology
DX: C61 Malignant neoplasm of prostate (principal); R97.21 Rising PSA following treatment for malignant neoplasm of prostate
CPT/HCPCS: 36415; 81001; 84153